=== PATIENT | female | born 1955 | race Caucasian/White ===

== ENCOUNTER → 2018-04-16 10:12 | Outpatient (CLI) | payer MEDICARE, SELFPAY ==
[2018-04-16 12:05] LABS: Absolute Neutrophil Count 3.2 X10^3/uL (2.0-7.7); Basophil# 0.02 X10^3/uL; Basophil% 0.4 % (0-1); Eosinophil# 0.08 X10^3/uL; Eosinophils% 1.4 % (0-5); Hematocrit 42.6 % (37-47); Hemoglobin 14.1 g/dl (12.0-15.0); Lymphocyte % 34.1 % (19-41); Mean Corp Hgb Conc 33.1 g/gl (32-36); Mean Corpuscular Hgb 27.6 pg (27.0-32.0); Mean Corpuscular Volume 83.4 fL (81-99); Mean Platelet Vol. 11.6 fl (6.2-12.0); Monocyte# 0.34 X10^3/uL; Monocyte% 6.1 % (0-10); Neutrophil # 3.21 X10^3/uL (2.7-7.7); Neutrophil % 57.6 % (47-70); Platelet Count 246 K/mm3 (150-450); RBC Distribution Width CV 14.7 % (11.6-14.6); RBC Distribution Width SD 43.8 fl (35.1-43.9); Red Blood Count 5.11 M/mm3 (4.2-5.4); White Blood Count 5.6 K/mm3 (4.4-11.0)
[2018-04-16 12:07] LABS: POSITIVE COUNT NO; POSITIVE DIFFERENTIAL NO; POSITIVE MORPHOLOGY NO
[2018-04-16 12:33] LABS: ALB/GLOB Ratio 1.1 RATIO (0.9-2.4); AST(SGOT) 21 U/L (15-37); Alanine Aminotransfer ALT/SGPT 27 U/L (13-56); Albumin, Serum 3.9 g/dL (3.2-5.0); Alkaline Phosphatase 95 U/L (45-117); Anion Gap 5 (5-15); BUN 8 mg/dL (7-18); BUN/Creat Ratio 7.8 RATIO (10-20); Calcium,Total 9.4 mg/dL (8.5-10.1); Chloride 106 mmol/L (98-107); Creatinine, Serum 1.02 mg/dL (0.55-1.02); EST Glomerular Filtration Rate 58 mL/min (>60); Est Glom Filt Rate - Afr Amer 70 mL/min (>60); Globulin 3.6 g/dL (2.2-4.2); Glucose 104 mg/dL (74-106); Potassium 4.2 mmol/L (3.5-5.1); Protein, Total 7.5 g/dL (6.4-8.2); Sodium Level 138 mmol/L (136-145); T4 Free Direct 0.99 ng/dL (0.76-1.46)
== END ==
PROVIDERS: Family Provider Family Medicine; PCP Family Medicine; Visit Provider Family Medicine
DX: I10 Essential (primary) hypertension (principal); R73.01 Impaired fasting glucose; E78.5 Hyperlipidemia, unspecified
CPT/HCPCS: 36415; 80053; 84439; 84443; 85025

== ENCOUNTER → 2018-05-02 07:49 | Outpatient (CLI) | payer MEDICARE, SELFPAY | PROVIDERS: Family Provider Family Medicine; PCP Family Medicine; Visit Provider Family Medicine | DX: Z12.31 Encounter for screening mammogram for malignant neoplasm of breast (principal) | CPT/HCPCS: 77063; 77067 ==

== ENCOUNTER → 2018-12-24 10:19 | Outpatient (CLI) | payer MEDICARE, SELFPAY ==
[2018-12-24 12:05] LABS: Absolute Lymphocyte Count 1.93 X10^3/ul (0.83-4.51); Basophil# 0.03 X10^3/uL; Basophil% 0.5 % (0-1); Eosinophil# 0.09 X10^3/uL; Eosinophils% 1.6 % (0-5); Hematocrit 40.3 % (37-47); Hemoglobin 12.9 g/dl (12.0-15.0); Lymphocyte # 1.93 X10^3/ul (4.0); Lymphocyte % 35.3 % (19-41); Mean Corpuscular Volume 81.3 fL (81-99); Mean Platelet Vol. 11.5 fl (6.2-12.0); Monocyte# 0.42 X10^3/uL; Monocyte% 7.7 % (0-10); Neutrophil # 2.99 X10^3/uL (2.7-7.7); Neutrophil % 54.7 % (47-70); Platelet Count 214 K/mm3 (150-450); RBC Distribution Width CV 15.2 % (11.6-14.6); RBC Distribution Width SD 45.2 fl (35.1-43.9); Red Blood Count 4.96 M/mm3 (4.2-5.4); White Blood Count 5.5 K/mm3 (4.4-11.0)
[2018-12-24 12:15] LABS: POSITIVE COUNT NO; POSITIVE DIFFERENTIAL NO; POSITIVE MORPHOLOGY NO
[2018-12-24 12:38] LABS: ALB/GLOB Ratio 1.3 RATIO (0.9-2.4); AST(SGOT) 19 U/L (15-37); Alanine Aminotransfer ALT/SGPT 23 U/L (13-56); Albumin, Serum 3.9 g/dL (3.2-5.0); Alkaline Phosphatase 90 U/L (45-117); Anion Gap 5 (5-15); BUN 9 mg/dL (7-18); BUN/Creat Ratio 9.2 RATIO (10-20); Calcium,Total 9.5 mg/dL (8.5-10.1); Chloride 106 mmol/L (98-107); Creatinine, Serum 0.98 mg/dL (0.55-1.02); EST Glomerular Filtration Rate 61 mL/min (>60); Est Glom Filt Rate - Afr Amer 74 mL/min (>60); Glucose 88 mg/dL (74-106); Potassium 4.1 mmol/L (3.5-5.1); Protein, Total 6.9 g/dL (6.4-8.2); Sodium Level 139 mmol/L (136-145); T4 Free Direct 0.94 ng/dL (0.76-1.46); Thyroid Stim Hormone (TSH) 1.52 uIU/mL (0.358-3.74)
== END ==
PROVIDERS: Family Provider Family Medicine; PCP Family Medicine; Visit Provider Family Medicine
DX: I10 Essential (primary) hypertension (principal); R53.83 Other fatigue; R73.01 Impaired fasting glucose
CPT/HCPCS: 36415; 80053; 84439; 84443; 85025

== ENCOUNTER → 2019-05-14 10:10 | Outpatient (CLI) | payer MEDICARE, SELFPAY ==
--- NOTE | 2019-05-14 10:12 | BI_ITS ---
MAMMOGRAPHY - BILATERAL SCREENING 3-D TOMOSYNTHESIS REASON FOR EXAM: Female, 64 years old. Bilateral Screening 3-D tomosynthesis PERTINENT HISTORY: No significant family history. TECHNIQUE: 2-D mammograms and 3-D Tomosynthesis of the breast (s) were performed. CAD was performed. COMPARISON: 05/02/2018, 08/05/2015. FINDINGS: The breast composition is heterogeneously dense that can obscure small breast masses. A focus of increased prominence is visualized on the right side along the retroareolar region, on the MLO view, best visualized on slice 7/13 of the 3 D tomosynthesis image along the MLO projection measuring 1 cm. Further evaluation of this focus with spot compression mammogram and if persistent with sonogram is recommended. Scattered benign calcifications are seen. No other focus of dense spiculated masses or suspicious microcalcifications are identified. No architectural distortion is identified. There is no skin thickening or retraction. There has been no other focus of significant change since the prior study. BI/SCREEN MAMM (CAD) W/MIKE BILAT IMPRESSION: A focus of increased prominence is visualized on the right side along the retroareolar region, on the MLO view, best visualized on slice 7/13 of the 3 D tomosynthesis image along the MLO projection measuring 1 cm. Further evaluation of this focus with spot compression mammogram and if persistent with sonogram is recommended. ASSESSMENT CATEGORY: BIRADS Category 0: Incomplete. Need additional imaging evaluation as above. A letter regarding these results will be sent to the patient by the facility within 30 days. FOLLOW UP RECOMMENDATION: Additional imaging recommended as above. (E) Approximately 10% of breast cancers are not detected by mammography. A normal mammogram should not delay biopsy of a clinically suspicious abnormality. Electronically Signed: Chaim Pennington MD at 16:15 EDT Tel [phone], Service support ,
== END ==
PROVIDERS: Family Provider Family Medicine; PCP Family Medicine; Referring Provider Family Medicine; Visit Provider Family Medicine
DX: Z12.31 Encounter for screening mammogram for malignant neoplasm of breast (principal)
CPT/HCPCS: 77063; 77067

== ENCOUNTER → 2019-05-19 09:24 | Outpatient (CLI) | payer MEDICARE, SELFPAY ==
--- NOTE | 2019-05-19 09:29 | US_ITS ---
STUDY: ULTRASOUND BREAST - RIGHT REASON FOR EXAM: Female, 64 years old. Abnormal screening mammogram. TECHNIQUE: Axial and longitudinal images of the RIGHT breast were performed with a high resolution ultrasound transducer. COMPARISON: Comparison is made with prior mammogram done earlier in the day as well as prior mammogram dated May 14, 2019. FINDINGS: RIGHT Breast: The upper outer quadrant of the right breast was examined by ultrasound. There is homogeneous fibroglandular tissue. No sonographic abnormality is seen. US/Breast Limited Unilateral IMPRESSION: No sonographic abnormality is seen. ASSESSMENT CATEGORY: BIRADS Category 1: Negative. A letter regarding these results will be sent to the patient by the facility within 30 days. Electronically Signed: Dae Love, at 11:00 EDT , Service support ,
--- NOTE | 2019-05-19 09:29 | BI_ITS ---
MAMMOGRAPHY - UNILATERAL DIAGNOSTIC: RIGHT BREAST REASON FOR EXAM: Female, 64 years old. Abnormal screening mammogram. PERTINENT HISTORY: Non-contributory. TECHNIQUE: Compression spot views of the right breast in the mediolateral oblique and craniocaudad projections were obtained. CAD: Full Field Digital Mammography with Computer Added Detection was performed. COMPARISON: Comparison is made with prior mammogram dated May 14, 2019. FINDINGS: Breast Composition: The breasts are heterogeneously dense, which may obscure small masses. There are no dominant masses or suspicious calcifications. The previously questionable asymmetrical density is not seen on this examination. No other significant abnormalities are identified. BI/DIAG MAMM W/CAD, UNILAT IMPRESSION: Stable unilateral diagnostic mammogram. One year follow-up mammogram recommended. (A) ASSESSMENT CATEGORY: BIRADS Category 2: Benign. A letter regarding these results will be sent to the patient by the facility within 30 days. Approximately 10% of breast cancers are not detected by mammography. A normal mammogram should not delay biopsy of a clinically suspicious abnormality. Electronically Signed: Dae Love, at 10:09 EDT , Service support ,
== END ==
PROVIDERS: Family Provider Family Medicine; PCP Family Medicine; Referring Provider Family Medicine; Visit Provider Family Medicine
DX: R92.8 Other abnormal and inconclusive findings on diagnostic imaging of breast (principal)
CPT/HCPCS: 76642; 77065

== ENCOUNTER → 2019-10-20 09:27 | Outpatient (CLI) | payer MEDICARE, SELFPAY ==
[2019-10-20 12:17] LABS: Absolute Lymphocyte Count 2.24 X10^3/uL (0.83-4.51); Basophil# 0.04 X10^3/uL; Basophil% 0.6 % (0-1); Eosinophil# 0.12 X10^3/uL; Eosinophils% 1.7 % (0-5); Hematocrit 39.8 % (37-47); Hemoglobin 12.3 g/dL (12.0-15.0); Lymphocyte # 2.24 X10^3/ul (4.0); Lymphocyte % 32.6 % (19-41); Mean Corp Hgb Conc 30.9 g/dL (32-36); Mean Corpuscular Hgb 25.1 pg (27.0-32.0); Mean Corpuscular Volume 81.2 fL (81-99); Mean Platelet Vol. 12.1 fl (6.2-12.0); Monocyte# 0.41 X10^3/uL; NRBC Flagged by Analyzer 0 % (0-5); Neutrophil # 4.04 X10^3/uL (2.7-7.7); Neutrophil % 58.8 % (47-70); Platelet Count 221 K/mm3 (150-450); RBC Distribution Width CV 15.6 % (11.6-14.6); RBC Distribution Width SD 45.9 fl (35.1-43.9); White Blood Count 6.9 K/mm3 (4.4-11.0)
[2019-10-20 13:17] LABS: Hemoglobin A1c 5.7 % (4.2-6.3)
[2019-10-20 13:20] LABS: Anion Gap 3 (5-15); BUN 12 mg/dL (7-18); Calcium,Total 9.8 mg/dL (8.5-10.1); Chloride 106 mmol/L (98-107); EST Glomerular Filtration Rate 59 mL/min (>60); Est Glom Filt Rate - Afr Amer 72 mL/min (>60); Glucose 94 mg/dL (74-106); Potassium 3.9 mmol/L (3.5-5.1); Sodium Level 138 mmol/L (136-145); Thyroid Stim Hormone (TSH) 1.44 uIU/mL (0.358-3.74)
== END ==
PROVIDERS: PCP Family Medicine; Visit Provider Family Medicine
DX: I10 Essential (primary) hypertension (principal); R73.01 Impaired fasting glucose; F41.8 Other specified anxiety disorders
CPT/HCPCS: 36415; 80048; 83036; 84443; 85025

== ENCOUNTER → 2020-05-20 09:55 | Outpatient (CLI) | payer MEDICARE, SELFPAY ==
--- NOTE | 2020-05-20 09:56 | BI_ITS ---
MAMMOGRAPHY - BILATERAL SCREENING REASON FOR EXAM: Female, 65 years old. Routine annual screening examination. PERTINENT HISTORY: Aunt with breast cancer. TECHNIQUE: Digital bilateral breast mike (3D mammographic acquisition) in the CC and MLO projections. 2-D mediolateral oblique (MLO) and craniocaudad (CC) views of both breasts were obtained. CAD: Full Field Digital Mammography with Computer Added Detection was performed. COMPARISON: Comparison is made with prior examination dated 05/14/2019 and 05/02/2018. FINDINGS: Breast Composition: The breasts are heterogeneously dense, which may obscure small masses. There are no dominant masses or suspicious calcifications. Stable small benign appearing bilateral axillary lymph nodes. No other significant abnormalities are identified. There has been no significant change since the prior study. BI/SCREEN MAMM (CAD) W/MIKE BILAT IMPRESSION: Stable bilateral screening mammogram. Yearly follow-up mammogram recommended. (A) ASSESSMENT CATEGORY: BIRADS Category 2: Benign. A letter regarding these results will be sent to the patient by the facility within 30 days. Approximately 10% of breast cancers are not detected by mammography. A normal mammogram should not delay biopsy of a clinically suspicious abnormality. [id number] Electronically Signed: Dae Love, at 11:31 EDT , Service support ,
== END ==
PROVIDERS: PCP Family Medicine; Referring Provider Family Medicine; Visit Provider Family Medicine
DX: Z12.31 Encounter for screening mammogram for malignant neoplasm of breast (principal); Z80.3 Family history of malignant neoplasm of breast
CPT/HCPCS: 77063; 77067

== ENCOUNTER → 2020-06-08 12:41 | Outpatient (CLI) | payer MEDICARE, SELFPAY ==
--- NOTE | 2020-06-08 12:45 | CT_ITS ---
STUDY: LOW DOSE CT LUNG CANCER SCREENING REASON FOR EXAM: Female, 65 years old. LUNG CA SCREENING. CURRENT SMOKER 1/2 PACK A DAY. 170LBS NO HX OF CA RADIATION DOSAGE (If Supplied By Facility): CTDIvol = ( 3.02 ) mGy, DLP = ( 97.79 ) mGycm TECHNIQUE: No contrast was administered. Low dose technique was utilized (average mAS-38 and kVp 120). 1.25 mm axial source images with a slice interval of 1.25-mm were reconstructed in lung windows. 2.5 mm axial source images with a slice interval of 2.5-mm were reconstructed in lung windows. 5.0 mm axial source images with a slice interval of 5.0-mm were reconstructed in soft tissue windows. Nodule measured using lung windows on PACS and/or independent workstation with automated measurement of minimum and maximum diameter. Nodule measurement reported as average diameter rounded to the nearest whole number. Growth is defined as an increase ins size of greater than 1.5 mm. COMPARISON: None. NODULES: There is a 3.7 mm patchy calcified granuloma in the right lung apex as seen on axial image #41. Emphysema: Mild degree of emphysematous changes. Aorta: Atherosclerotic calcific plaques of the aortic arch and descending thoracic aorta. Coronary arteries: Coronary artery calcification. Heart: Unremarkable. Pulmonary artery: Unremarkable Mediastinal nodes: Small benign-appearing mediastinal lymph nodes. CT/Low Dose CT Lung Screening IMPRESSION: Lung-RADS category 2 - Continue annual screening with LDCT in 12 months. IMPORTANT NOTES FOR USE: ACR Lung-RADS Version 1.0 Assessment Categories Release Date: January 19, 2014 Category: Coded 0-4 bases on nodule(s) with highest degree of suspicion. Negative screen is defined as categories 1 and 2; a positive screen is defined as categories 3 and 4. Category 3 and 4A nodules that are unchanged on interval CT should be coded as category 2, and individuals returned to screening in 12 months. Category 4X: Category 3 or 4 nodules with additional imaging findings that increase the suspicion of lung cancer, such as spiculation, GGN that doubles in size in 1 year, enlarged lymph notes, etc. Category Modifiers: S (significant finding unrelated to lung cancer) and C (prior history of treated lung cancer) may be added to the 0-4 Lung-RADS Electronically Signed: Dae Love, at 13:07 EDT , Service support ,
== END ==
PROVIDERS: PCP Family Medicine; Referring Provider Nurse Practitioner Family; Visit Provider Nurse Practitioner Family
DX: Z12.2 Encounter for screening for malignant neoplasm of respiratory organs (principal); F17.210 Nicotine dependence, cigarettes, uncomplicated
CPT/HCPCS: G0297

== ENCOUNTER → 2020-07-09 10:34 | Outpatient (CLI) | payer MEDICARE, SELFPAY ==
[2020-06-23 08:53] VITALS: BMI 30.9
--- NOTE | 2020-07-09 13:53 | PFTCOMP ---
COMPLETE PULMONARY FUNCTION TEST INTERPRETATION Brief HPI: Patient is a 65 year old female, currently under the care of Dr. Stern, who presents to [facility] for complete pulmonary function tests secondary to diagnosis of COPD. Respiratory therapist reports good effort and reproducible results. Interpretation: Forced expiration spirometry shows a mild large airways obstructive ventilatory defect with an FEV1 of 72% predicted. There is no significant bronchodilator response by strict ATS criteria. Spirograms are of good quality and plateau slowly, indicating slowly emptying areas of the lungs. The respiratory flow volume loop shows decreased expiratory flow rates at all lung volumes consistent with airway obstruction. Lung volumes by body plethysmography show an elevated total lung capacity at 6.23 L, 140% predicted. FRC and RV are elevated out of proportion. Lung volume measurements are consistent with hyperinflation and air-trapping. Diffusion capacity by carbon monoxide is at the lower limit of normal at 65% predicted. The airway resistance is elevated. Compared to previous pulmonary function tests from 07/23/2012, there is been a significant reduction in FVC and FEV1 by 18% and 26% respectively, resulting in significant worsening of air trapping with hyperinflation. Impression: Irreversible mild large airways obstructive ventilatory defect resulting in air trapping and hyperinflation, and a symmetric reduction diffusion capacity, and a pattern consistent with COPD.
== END ==
PROVIDERS: PCP Family Medicine; Referring Provider Internal Medicine Critical Care Medicine; Visit Provider Internal Medicine Critical Care Medicine
DX: J44.9 Chronic obstructive pulmonary disease, unspecified (principal); F17.200 Nicotine dependence, unspecified, uncomplicated
CPT/HCPCS: 94060; 94726; 94729

== ENCOUNTER → 2020-07-13 13:38 | Outpatient (CLI) | payer MEDICARE, SELFPAY ==
[2020-06-23 08:53] VITALS: BMI 30.9
[2020-07-13 13:45] VITALS: PULSE 101; PULSE 103; PULSE 105; PULSE 88; PULSE 97; PULSE 99; O2SAT 93; O2SAT 94; O2SAT 95; O2SAT 98; O2SAT 99
--- NOTE | 2020-07-14 09:15 | PCM.PSN.6M ---
PSN 6 Minute Walk Test - 6 Minute Walk Test 6 Minute Walk Test: 6 Minute Walk Test PSN:6-Minute Walk Test Start: 07/13/20 13:55 Freq: Status: Active Protocol: [id number] Document 07/13/20 13:45 (Rec: 07/13/20 13:59 [id number]) 6 Minute Walk Test Date Performed 07/13/20 Time Performed 13:45 Height 5 ft 2 in Weight: 165 lb Weight in Pounds 165.[address]: Mendoza Stern FIO2 (% Oxygen) 21 Assistive device used: None Pre-test Oxygen Delivery Method Room Air Pulse Ox (%) 99 Pulse Rate (60-100 beats/min) 88 Dyspnea Jonathon Scale (0-10) 0 Exertion Jonathon Scale (6-20) 6 1st minute Oxygen Delivery Method Room Air Pulse Ox (%) 93 Pulse Rate (60-100 beats/min) 101 H 2nd minute Oxygen Delivery Method Room Air Pulse Ox (%) 95 Pulse Rate (60-100 beats/min) 105 H 3rd minute Oxygen Delivery Method Room Air Pulse Ox (%) 94 Pulse Rate (60-100 beats/min) 103 H 4th minute Oxygen Delivery Method Room Air Pulse Ox (%) 98 Pulse Rate (60-100 beats/min) 105 H 5th minute Oxygen Delivery Method Room Air Pulse Ox (%) 98 Pulse Rate (60-100 beats/min) 99 6th minute Oxygen Delivery Method Room Air Pulse Ox (%) 95 Pulse Rate (60-100 beats/min) 103 H Post-test Oxygen Delivery Method Room Air Pulse Ox (%) 99 Pulse Rate (60-100 beats/min) 97 Dyspnea Jonathon Scale (0-10) 3 Exertion Jonathon Scale (6-20) 11 Full Laps Walked 13 Partial Lap, Number of Tiles Walked 32 Total Distance Walked (ft) 799 - Interpretation Interpretation: The patient ambulated 799 feet over the course of 6 minutes beginning on room air without assistive devices or breaks. Pretesting oxygen saturation was noted to be 99% on room air. With ambulation, the josé miguel oxygen saturation was 93%. This represents a significant exertional oxygen desaturation. - Recommendations Recommendations: There is no indication for the use of supplemental oxygen at this time. However, close interval follow-up is recommended, given the degree of oxygen desaturation noted during this study.
== END ==
PROVIDERS: PCP Family Medicine; Referring Provider Internal Medicine Critical Care Medicine; Visit Provider Internal Medicine Critical Care Medicine
DX: J44.9 Chronic obstructive pulmonary disease, unspecified (principal); F17.210 Nicotine dependence, cigarettes, uncomplicated
CPT/HCPCS: 94618

== ENCOUNTER → 2020-10-20 15:11 | Outpatient (CLI) | payer MEDICARE, SELFPAY ==
[2020-09-13 09:46] VITALS: BMI 25.4
[2020-10-20 18:20] LABS: Absolute Lymphocyte Count 2.01 X10^3/uL (0.83-4.51); Absolute Neutrophil Count 4.2 X10^3/uL (2.0-7.7); Basophil# 0.03 X10^3/uL; Basophil% 0.4 % (0-1); Eosinophil# 0.08 X10^3/uL; Eosinophils% 1.2 % (0-5); Hematocrit 36.4 % (37-47); Hemoglobin 10.9 g/dL (12.0-15.0); Lymphocyte # 2.01 X10^3/ul (4.0); Lymphocyte % 29.2 % (19-41); Mean Corp Hgb Conc 29.9 g/dL (32-36); Mean Corpuscular Hgb 22.9 pg (27.0-32.0); Mean Corpuscular Volume 76.6 fL (81-99); Mean Platelet Vol. 11.4 fl (6.2-12.0); Monocyte# 0.52 X10^3/uL; Monocyte% 7.6 % (0-10); NRBC Flagged by Analyzer 0 % (0-5); Neutrophil # 4.22 X10^3/uL (2.7-7.7); Neutrophil % 61.3 % (47-70); Platelet Count 191 K/mm3 (150-450); RBC Distribution Width CV 16.9 % (11.6-14.6); RBC Distribution Width SD 46.9 fl (35.1-43.9); Red Blood Count 4.75 M/mm3 (4.2-5.4); White Blood Count 6.9 K/mm3 (4.4-11.0)
[2020-10-20 18:32] LABS: ALB/GLOB Ratio 1.1 RATIO (0.9-2.4); AST(SGOT) 19 U/L (15-37); Alanine Aminotransfer ALT/SGPT 22 U/L (13-56); Albumin, Serum 3.6 g/dL (3.2-5.0); Alkaline Phosphatase 80 U/L (45-117); Anion Gap 6 (5-15); BUN 15 mg/dL (7-18); BUN/Creat Ratio 14.4 RATIO (10-20); Calcium,Total 9.1 mg/dL (8.5-10.1); Chloride 104 mmol/L (98-107); Creatinine, Serum 1.04 mg/dL (0.55-1.02); EST Glomerular Filtration Rate 56 mL/min (>60); Est Glom Filt Rate - Afr Amer 68 mL/min (>60); Globulin 3.3 g/dL (2.2-4.2); Glucose 79 mg/dL (74-106); Potassium 3.8 mmol/L (3.5-5.1); Protein, Total 6.9 g/dL (6.4-8.2); Sodium Level 138 mmol/L (136-145); T4 Free Direct 0.92 ng/dL (0.76-1.46); Thyroid Stim Hormone (TSH) 2.05 uIU/mL (0.358-3.74)
[2020-10-21 08:54] LABS: Ferritin 6 ng/mL (8-252); Iron 22 ug/dL (50-170)
== END ==
PROVIDERS: PCP Family Medicine; Visit Provider Family Medicine
DX: I10 Essential (primary) hypertension (principal); R73.01 Impaired fasting glucose; K59.09 Other constipation; D64.9 Anemia, unspecified
CPT/HCPCS: 36415; 80053; 82728; 83540; 84439; 84443; 85025

== ENCOUNTER 2020-11-22 06:52 | Day surgery (SDC) | payer MEDICARE, SELFPAY ==
[2020-11-01 14:45] VITALS: BMI 29.6
[2020-11-22] VITALS (8 sets, daily range): BP systolic 128–174; BP diastolic 72–90; PULSE 60–80; RESP 16–17; TEMP 36.1–36.3; O2SAT 97–100; BMI 29.5
--- NOTE | 2020-11-22 | GASB_PTH ---
PATIENT: MATY SHEN LOC: EN U#:[id number] AGE/SX: 65/F ROOM: RE11/22/[address]: Dr. Kylah Aguero MD : 1955 BED: DIS: 11/22/2020 SPEC #: [id number] RECD: 11/22/20 13:00 STATUS: SUSANNAH BEATRICE #: [id number] SUSANNAH: 11/22/20 00:[address]: Kylah Aguero DEPT: SURGICAL PATHOLOGY RECD BY: Arturo Casillas ENTERED: 11/22/20 13:00 SP TYPE: Gastric Bx OTHR DR: Dr. Frederick Poe MD Tissues: A - Gastric mucous membrane B - Gastric mucous membrane C - Ascending colon D - COLON BIOPSY E - COLON BIOPSY Procedures: Special Stain Group II Surgery Specimen Level IV Alcian Blue/PAS (control) HEADER OPERATION: Colonoscopy, [place] [place] PRE-OP DIAGNOSIS: Anemia, constipation TISSUE SUBMITTED: A - Antrum biopsy for H. pylori and path, B - GE junction biopsy, C - Biopsy of ascending colon polyp, D - Hepatic flexure biopsy of polyp incomplete, E - Hepatic flexure biopsy of polyp?#2 MICROSCOPIC DIAGNOSIS A. Antrum, biopsy: Mild gastritis. See microscopic description and comment. B. GE junction, biopsy: Fragments of gastroesophageal mucosa with mild chronic inflammation. Intestinal metaplasia (goblet cell metaplasia) is not identified. See comment. C. Ascending colon polyp, biopsy: Tubular adenoma. D. Hepatic flexure polyp, biopsy: Fragments of tubular adenoma. E. Hepatic flexure polyp #2, biopsy: Fragments of tubular adenoma. SJ:charlette 11/23/2020 COMMENT A. The results of immunohistochemistry for Helicobacter pylori will be reported separately ([id number]). B. Alcian blue/PAS stain with matched control is used in the evaluation of the specimen. MICROSCOPIC DESCRIPTION Slides are reviewed. A. The specimen shows fragments of gastric mucosa with chronic inflammatory cell infiltrates in the lamina propria consisting of lymphocytes and plasma cells, consistent with mild chronic gastritis. GROSS DESCRIPTION A - Received in fixative is one container labeled with the patient's name and designated antrum biopsy. The specimen consists of one irregular fragment of light toney soft tissue that measures 0.3 x 0.2 x 0.1 cm. The specimen is totally submitted in one cassette. B - Received in fixative is one container labeled with the patient's name and designated GE junction biopsy. The specimen consists of two irregular fragments of light toney soft tissue that in aggregate measure 0.3 x 0.2 x 0.1 cm. The specimen is totally submitted in one cassette. C - Received in fixative is one container labeled with the patient's name and designated biopsy of ascending polyp. The specimen consists of multiple irregular fragments of light toney soft tissue that in aggregate measure 0.3 x 0.3 x 0.1 cm. The specimen is totally submitted in one cassette. D - Received in fixative is one container labeled with the patient's name and designated biopsy of hepatic flexure polyp. The specimen consists of two irregular fragments of light toney soft tissue that in aggregate measure 0.4 x 0.2 x 0.1 cm. The specimen is totally submitted in one cassette. E - Received in fixative is one container labeled with the patient's name and designated biopsy of hepatic flexure polyp #2. The specimen consists of three irregular fragments of light toney soft tissue that in aggregate measure 1 x 0.3 x 0.1 cm. The specimen is totally submitted in one cassette. / SJ:rg 11/22/20 TC:5 CPT: 60972 x5, 30899
--- NOTE | 2020-11-22 06:17 | HP_ITS ---
Intake Vital Signs 11/01/20 Height 5 ft 2 in 11/01/20 Weight: 162 lb 11/01/20 BP 146/95 H 11/01/20 Blood Pressure Location Rt brachial 11/01/20 Position Sitting 11/01/20 Respiration 16 11/01/20 Pulse 78 11/01/20 Pulse Source Monitor 11/01/20 Temp 97.7 F L 11/01/20 Temp Source Temporal 11/01/20 Pulse Oximetry (%) 94 11/01/20 Oxygen Delivery Method room air Intake Visit Reasons: ANEMIA, EGD/ CSCOPE Allergies Penicillins Allergy (Intermediate, Verified 11/01/20 14:46) Rash Medications atorvastatin 20 mg tablet 20 mg PO DAILY 06/08/20 [History Confirmed 11/01/20] lactobacillus combination no.8 3 billion cell capsule 3,000 mmu cells PO DAILY 06/08/20 [History Confirmed 11/01/20] lisinopril 20 mg tablet 20 mg PO DAILY 06/08/20 [History Confirmed 11/01/20] multivitamin 1 cap PO DAILY 06/08/20 [History Confirmed 11/01/20] venlafaxine 150 mg capsule,extended release 24 hr 150 mg PO DAILY 06/08/20 [History Confirmed 11/01/20] albuterol sulfate 90 mcg/actuation aerosol inhaler 2 puff INHALATION Q4H PRN #1 device 06/23/20 [Rx Confirmed 11/01/20] cholecalciferol (vitamin D3) 125 mcg (5,000 unit) capsule 125 mcg PO DAILY 06/23/20 [History Confirmed 11/01/20] tiotropium 2.5 mcg-olodaterol 2.5 mcg/actuation mist for inhalation 2 inh INHALATION DAILY #4 g 09/29/20 [Rx Confirmed 11/01/20] citalopram 10 mg tablet 10 mg PO DAILY tab 11/01/20 [History Confirmed 11/01/20] polyethylene glycol 3350 17 gram/dose oral powder 17 g PO DAILY 11/01/20 [History Confirmed 11/01/20] venlafaxine 75 mg capsule,extended release 24 hr 75 mg PO DAILY cap 11/01/20 [History Confirmed 11/01/20] [facility] Medical History (Updated 11/01/20 @ 14:43 by Hailey Cochran) Hemorrhoids (Acute) Abdominal pain (Acute) SOB (shortness of breath) (Acute) Arthritis (Acute) Microcytic anemia (Acute) Chronic constipation (Chronic) GERD (gastroesophageal reflux disease) (Acute) Smoking greater than 30 pack years (Chronic) Emphysema lung (Acute) Bronchitis (Resolved) Asthma (Acute) Hyperlipidemia (Chronic) Hypertension (Chronic) Depression (Chronic) Degenerative joint disease (Acute) Hyperlipidemia (Acute) Hypertension (Chronic) Surgical History (Updated 11/01/20 @ 14:43 by Hailey Cochran) Hx of colonoscopy (Acute) H/O tubal ligation (Resolved) Family History Mother Diabetes Hypertension Father Diabetes COPD (chronic obstructive pulmonary disease) Hypertension Social History (Updated 11/01/20 @ 14:[address] Kylah Aguero MD) Smoking Status: Current every day smoker tobacco type: cigarettes Tobacco: How many years used: 45 substance use type: marijuana HPI HPI HPI: MATY SHEN, is a 65 F who presents to the office today for HPI HPI Surgical H&P: Yes HPI: MATY SHEN, is a 65 F who presents to the office today for EGD and colonoscopy due to anemia. Patient loosely had a hemoglobin of 12.9 in 2019 which then went to 12.3 last year and this year it is 10.9. Patient states she has bowel movements once or twice a week. She admits to severe constipation she is currently on MiraLAX. Patient states last 2 months she has had to strain quite a bit more in order to have a bowel movement. Patient does not think she takes enough fiber or water. Patient denies any blood in her stool. Denies any nausea/vomiting/reflux. Patient does states she gets some abdominal cramping and gas pains maybe once every couple days. Patient denies any family history of colon cancer. Patient last colonoscopy was in 2013 at [facility], negative per patient Exam Const General: cooperative, comfortable, no acute distress Resp Effort & Inspection: normal respiratory effort Cardio Rate: regular rate GI Inspection: non-distended Palpation: soft, no guarding, nontender Neuro General: oriented x3 Cranial Nerves: CN's II-XI intact bilaterally Psych Affect: normal affect Assessment & Plan Problems 1. Anemia D64.9 2. Chronic constipation K59.09 Plan Patient does not think she takes enough fiber or drink enough water. Did encourage patient to drink more water as well as increase her fiber to 20 g daily. Did give patient a sheet going over how to do this slowly. As well as additional supplements that she could try for fiber. I have discussed the above with the patient. I have offered the patient EGD and colonoscopy for evaluation. I have explained the risks/benefits of the procedure and described the procedure. I have discussed the risks with the patient, including but not limited to: infection, bleeding, perforation of the GI tract requiring emergency surgery, inability to complete the procedure, injury to any internal organs, complications of anesthesia, etc. - the patient understands and agrees to proceed. I have answered all the patient's questions to the patient's satisfaction and the patient has no further questions. The patient has been given instructions for the colon cleansing preparation. 2- day of clears, magnesium citrate the first day then MiraLAX Dulcolax the second day. Patient states she only has bowel movements once or twice a week. Kylah Aguero M.D. Pager: [phone] [facility] [address] [place] [address], [address] [place] [address] Office: [phone] Orders Orders: Colonoscopy Today EGD Today Plan Detail Follow Up We will schedule EGD and colonoscopy for November 22. Coding Level of Care Code Off vis,new,level 3 Diagnoses Anemia D64.9 Chronic constipation K59.09 COVID (Procedure Consent) Procedure Criteria Procedure Criteria: Yes Elective The surgeon/proceduralist and patient have discussed in detail the risk of exposure to and/or potential harm posed by the COVID-19 virus with having a surgery/procedure at this time versus the risk of? delaying the surgery/procedure. It is not possible to know either the risk of delaying the surgery or procedure or chance of getting an infection with perfect accuracy, but a joint decision was made between the patient and the surgeon/proceduralist ?to proceed at this time with the scheduled surgery/procedure as indicated on the consent form. I have re-examined the patient. There are no clinical changes since date of exam.
[2020-11-22] MEDS: Lactated Ringers 1,000 ML 100 ML IV (07:29)
--- NOTE | 2020-11-22 08:00 | IMM_PTH ---
PATIENT: MATY SHEN LOC: EN U#:[id number] AGE/SX: 65/F ROOM: RE11/22/[address]: Dr. Kylah Aguero MD : 1955 BED: DIS: 11/22/2020 SPEC #: [id number] RECD: 11/22/20 14:07 STATUS: SUSANNAH REBrennan #: [id number] SUSANNAH: 11/22/20 08:[address]: Kylah Aguero DEPT: IMMUNOHISTOCHEMISTRY RECD BY: Esmer Pride ENTERED: 11/22/20 14:07 SP TYPE: IMMUNO OTHR DR: Dr. Frederick Poe MD Tissues: A - Stomach, NOS Procedures: H Pylori (initial) PHYSICIAN & INSTITUTION [place] [id number] SPECIMEN INFORMATION: Tissue Source: A - Antrum biopsy Clinical Info: Anemia, chronic constipation Specimen Number: [id number] CPT code: 48518 METHODOLOGY: Deparaffinized sections of prefer/formalin-fixed tissue or PAP/DQ stained slides are incubated with monoclonal/polyclonal antibodies/oligonucleotide probes. Localization is made via biotin free immunoperoxidase method. Appropriate controls are performed and reacted as expected. Results on target cell population are indicated in the following table: RESULTS: ANTIBODY / CLONE RESULT Block A H Pylori (polyclonal) negative These tests were developed and their performance characteristics determined by [facility]. They may not have been cleared or approved by the U.S. Food and Drug Administration. The FDA has determined that such clearance or approval is not necessary. INTERPRETATION: A. Antrum, biopsy: Negative for Helicobacter pylori organisms. SJ:charlette 11/23/2020
--- NOTE | 2020-11-22 09:19 | OP.EGD_ITS ---
Patient Name: Samantha High Procedure Date: 11/22/2020 7:23 AM Date of : 1955 Age: 65 Procedure: Upper GI endoscopy Indications: Iron deficiency anemia Providers: Kylah Aguero MD Referring MD: Frederick Poe Medicines: Monitored Anesthesia Care Patient Profile: This is a 65 year old female. Complications: No immediate complications. Procedure: Pre-Anesthesia Assessment: - Prior to the procedure, a History and Physical was performed, and patient medications and allergies were reviewed. The patient's tolerance of previous anesthesia was also reviewed. The risks and benefits of the procedure and the sedation options and risks were discussed with the patient. All questions were answered, and informed consent was obtained. Prior Anticoagulants: The patient has taken no previous anticoagulant or antiplatelet agents. ASA Grade Assessment: Per anesthesia. After reviewing the risks and benefits, the patient was deemed in satisfactory condition to undergo the procedure. After obtaining informed consent, the endoscope was passed under direct vision. Throughout the procedure, the patient's blood pressure, pulse, and oxygen saturations were monitored continuously. The gastroscope was introduced through the mouth, and advanced to the second part of duodenum. The upper GI endoscopy was accomplished without difficulty. The patient tolerated the procedure well. Scope In: 7:58:08 AM Scope Out: 8:06:08 AM Total Procedure Duration Time 0 hours 8 minutes 0 seconds Findings: The Z-line was irregular and was found 40 cm from the incisors. Biopsies were taken with a cold forceps for histology. One non-bleeding superficial gastric ulcer with pigmented material was found in the prepyloric region of the stomach. The lesion was 3 mm in largest dimension. Biopsies were taken with a cold forceps for histology. Biopsies were taken with a cold forceps for Helicobacter pylori cultures. Moderately erythematous mucosa without bleeding was found in the gastric antrum. The examined duodenum was normal. The cardia and gastric fundus were normal on retroflexion. Impression: - Z-line irregular, 40 cm from the incisors. Biopsied. - Non-bleeding gastric ulcer with pigmented material. Biopsied. - Erythematous mucosa in the antrum. - Normal examined duodenum. Recommendation: - Await pathology results. - Discharge patient to home. - Resume previous diet. - Use Protonix (pantoprazole) 40 mg PO daily. - Use sucralfate tablets 1 gram PO QID for 1 month. - Continue present medications. Procedure Code(s): --- Professional --- 89129, Esophagogastroduodenoscopy, flexible, transoral; with biopsy, single or multiple Diagnosis Code(s): --- Professional --- K22.8, Other specified diseases of esophagus K25.9, Gastric ulcer, unspecified as acute or chronic, without hemorrhage or perforation K31.89, Other diseases of stomach and duodenum D50.9, Iron deficiency anemia, unspecified CPT copyright 2017 [employer]. All rights reserved. The codes documented in this report are preliminary and upon call out clerk review may be revised to meet current compliance requirements. MD Kylah Burch MD 11/22/2020 9:18:39 AM This report has been signed electronically. Number of Addenda: 0 Note Initiated On: 11/22/2020 7:23 AM
--- NOTE | 2020-11-22 09:19 | OP.CCLET_ITS ---
11/22/2020 Frederick Poe Re : Upper GI endoscopy procedure for Samantha High Dear Deepika This procedure was performed on Sunday, November 22, 2020. My impressions and recommendations are as follows: Impressions : - Z-line irregular, 40 cm from the incisors. Biopsied. - Non-bleeding gastric ulcer with pigmented material. Biopsied. - Erythematous mucosa in the antrum. - Normal examined duodenum. Recommendations : - Await pathology results. - Discharge patient to home. - Resume previous diet. - Use Protonix (pantoprazole) 40 mg PO daily. - Use sucralfate tablets 1 gram PO QID for 1 month. - Continue present medications. My findings are described in the full procedure note, which is enclosed. If I can be of further assistance, please feel free to contact me at Doctor phone number(s): , Work: . Sincerely, MD Kylah Burch MD 11/22/2020 9:18:39 AM This report has been signed electronically.
--- NOTE | 2020-11-22 09:24 | OP.COLON_ITS ---
Patient Name: Samantha High Procedure Date: 11/22/2020 8:06 AM Date of : 1955 Age: 65 Procedure: Colonoscopy Indications: Iron deficiency anemia Providers: Kylah Aguero MD Referring MD: Frederick Poe Medicines: Monitored Anesthesia Care Patient Profile: This is a 65 year old female. Last Colonoscopy: 2013. Complications: No immediate complications. Procedure: Pre-Anesthesia Assessment: - Prior to the procedure, a History and Physical was performed, and patient medications and allergies were reviewed. The patient's tolerance of previous anesthesia was also reviewed. The risks and benefits of the procedure and the sedation options and risks were discussed with the patient. All questions were answered, and informed consent was obtained. Prior Anticoagulants: The patient has taken no previous anticoagulant or antiplatelet agents. ASA Grade Assessment: Per anesthesia. After reviewing the risks and benefits, the patient was deemed in satisfactory condition to undergo the procedure. After I obtained informed consent, the scope was passed under direct vision. Throughout the procedure, the patient's blood pressure, pulse, and oxygen saturations were monitored continuously. The Colonoscope was introduced through the anus and advanced to the cecum, identified by the appendiceal orifice, ileocecal valve and palpation. The colonoscopy was technically difficult and complex due to a tortuous colon. The patient tolerated the procedure well. The quality of the bowel preparation was good. Scope In: 8:09:03 AM Scope Withdrawal Time 0 hours 52 minutes 48 seconds Scope Out: 9:09:33 AM Total Procedure Duration Time 1 hour 0 minutes 30 seconds Findings: The perianal and digital rectal examinations were normal. Two sessile polyps were found in the hepatic flexure and ascending colon. The polyps were less than 5 mm in size. These polyps were removed with a cold biopsy forceps. Resection and retrieval were complete. A 5 mm polyp was found in the hepatic flexure. The polyp was semi-sessile. Polyp resection was incomplete due to the polypectomy being technically difficult and complex. Biopsies were taken with a cold forceps for histology. Impression: - Two less than 5 mm polyps at the hepatic flexure and in the ascending colon, removed with a cold biopsy forceps. Resected and retrieved. - One 5 mm polyp at the hepatic flexure. Biopsied. Recommendation: - Await pathology results. - Repeat colonoscopy at appointment to be scheduled incomplete polyp resection. - Refer to a torch burner at appointment to be scheduled. - Continue present medications. Procedure Code(s): --- Professional --- 13817, Colonoscopy, flexible; with biopsy, single or multiple Diagnosis Code(s): --- Professional --- D12.3, Benign neoplasm of transverse colon (hepatic flexure or splenic flexure) D12.2, Benign neoplasm of ascending colon D50.9, Iron deficiency anemia, unspecified CPT copyright 2017 [employer]. All rights reserved. The codes documented in this report are preliminary and upon track welder review may be revised to meet current compliance requirements. MD Kylah Burch MD 11/22/2020 9:24:06 AM This report has been signed electronically. Number of Addenda: 0 Note Initiated On: 11/22/2020 8:06 AM
--- NOTE | 2020-11-22 09:24 | OP.CCLET_ITS ---
11/22/2020 Frederick Poe Re : Colonoscopy procedure for Samantha High Dear Deepika This procedure was performed on Sunday, November 22, 2020. My impressions and recommendations are as follows: Impressions : - Two less than 5 mm polyps at the hepatic flexure and in the ascending colon, removed with a cold biopsy forceps. Resected and retrieved. - One 5 mm polyp at the hepatic flexure. Biopsied. Recommendations : - Await pathology results. - Repeat colonoscopy at appointment to be scheduled incomplete polyp resection. - Refer to a plant operations engineer at appointment to be scheduled. - Continue present medications. My findings are described in the full procedure note, which is enclosed. If I can be of further assistance, please feel free to contact me at Doctor phone number(s): , Work: . Sincerely, MD Kylah Burch MD 11/22/2020 9:24:06 AM This report has been signed electronically.
== END 2020-11-22 10:37 | disposition home or self-care (01) ==
LOC: EN 06:53 → AC 06:55
PROVIDERS: PCP Family Medicine; Referring Provider Family Medicine; Visit Provider Surgery
PROC: 0DJD8ZZ Inspection of Lower Intestinal Tract, Via Natural or Artificial Opening Endoscopic (ICD-10-PCS; CPT 45378; principal; 2020-11-22 07:55)
DX: D12.2 Benign neoplasm of ascending colon (principal); D12.3 Benign neoplasm of transverse colon; K25.9 Gastric ulcer, unspecified as acute or chronic, without hemorrhage or perforation; K29.50 Unspecified chronic gastritis without bleeding; D50.9 Iron deficiency anemia, unspecified; K59.09 Other constipation; Z20.822 Contact with and (suspected) exposure to COVID-19; J44.9 Chronic obstructive pulmonary disease, unspecified; I10 Essential (primary) hypertension; E78.5 Hyperlipidemia, unspecified; K21.9 Gastro-esophageal reflux disease without esophagitis; F32.9 Major depressive disorder, single episode, unspecified; F17.210 Nicotine dependence, cigarettes, uncomplicated; Z79.899 Other long term (current) drug therapy; Z78.0 Asymptomatic menopausal state
CPT/HCPCS: 43239; 45380; 87426; 88305; 88313; 88342; C9803; J7120

== ENCOUNTER 2021-03-23 14:49 | Emergency (ER) | payer MEDICARE, SELFPAY ==
[2020-12-22 10:18] VITALS: BMI 30.8
[2021-03-23 14:50] VITALS: BP 118/67; PULSE 79; RESP 14; TEMP 37; O2SAT 98; BMI 29.0
--- NOTE | 2021-03-23 15:08 | ED.VIS.LOWEX ---
HPI History of Present Illness Chief Complaint: Lower Extremity Injury Detail of Chief Complaint: Injury to left lower extremity that occurred an hour ago Informant: patient Narrative Narrative: Patient presents to the emergency department with an injury to the left ankle that occurred about an hour ago. Patient states that she stepped in a hole and fell. Patient was able to bear weight and walk into the house afterwards. Now having a hard time bearing weight secondary to pain. She denies any other injuries. She is not on any blood thinners. [facility] Medical History (Updated 03/23/21 @ 15:[address] Iain Garcia, ) Abdominal pain Arthritis Asthma Bronchitis Chronic constipation Degenerative joint disease Depression Emphysema lung GERD (gastroesophageal reflux disease) Hemorrhoids Hyperlipidemia Hyperlipidemia Hypertension Hypertension Microcytic anemia Smoking greater than 30 pack years SOB (shortness of breath) Home Medications atorvastatin 20 mg tablet 20 mg PO QHS 06/08/20 [History Last Taken Unknown] lisinopril 20 mg tablet 20 mg PO DAILY 06/08/20 [History Last Taken Unknown] venlafaxine 150 mg capsule,extended release 24 hr 150 mg PO DAILY 06/08/20 [History Last Taken Unknown] albuterol sulfate 90 mcg/actuation aerosol inhaler 2 puff INHALATION Q4H PRN #1 device 06/23/20 [Rx Last Taken Unknown] cholecalciferol (vitamin D3) 125 mcg (5,000 unit) capsule 125 mcg PO DAILY 06/23/20 [History Last Taken Unknown] citalopram 10 mg tablet 10 mg PO DAILY tab 11/01/20 [History Last Taken Unknown] polyethylene glycol 3350 17 gram/dose oral powder 17 g PO DAILY 11/01/20 [History Last Taken Unknown] venlafaxine 75 mg capsule,extended release 24 hr 75 mg PO DAILY cap 11/01/20 [History Last Taken Unknown] pantoprazole 40 mg PO DAILY #30 tab 11/22/20 [Rx Last Taken Unknown] sucralfate 1 gm PO 4X/DAY #120 tab 11/22/20 [Rx Last Taken Unknown] oxycodone-acetaminophen 1 tab PO Q6H PRN PRN 3 Days #12 tablet 03/23/21 [Rx Last Taken Unknown] tiotropium-olodaterol [Stiolto Respimat] 2 puff INHALATION DAILY 03/23/21 [History Last Taken Unknown] Allergy/AdvReac Type Severity Reaction Status Date / Time Penicillins Allergy Intermediate Rash Verified 03/23/21 14:50 Family History Mother Diabetes Hypertension Father Diabetes COPD (chronic obstructive pulmonary disease) Hypertension Surgical History H/O tubal ligation Hx of colonoscopy Social History (Updated 12/22/20 @ 10:[address] Mendoza Stern, DO) Smoking Status: Current every day smoker tobacco type: cigarettes Tobacco: How many years used: 45 alcohol intake: current alcohol intake frequency: holidays/special occasions only substance use type: marijuana caffeine: Yes what type of physical activity do you participate in: none frequency: does not exercise ROS ROS ED Constitutional Constitutional ED: Reports systems reviewed and no addt'l complaints, except as documented; Denies body ache(s), change in weight or chills Eyes Eyes: Denies acute decrease in peripheral vision, change in vision, double vision or loss of vision ENT ENT ED: Reports none; Denies ear pain, lip swelling, loss taste/smell, neck pain, otalgia or sore throat Cardiovascular Cardiovascular: Reports none; Denies abdominal pain, chest pain with activity, leg edema, lightheadedness, palpitations, rapid heart rate or syncope Respiratory/Chest Respiratory/Chest: Reports none; Denies change in mental status, dry cough, dyspnea, hemoptysis, shortness of breath at rest or shortness of breath with exertion Gastrointestinal Gastrointestinal: Reports none; Denies abdominal pain, change in stool character, diarrhea, hematemesis, hematochezia, melena, rectal bleeding or vomiting Genitourinary Genitourinary ED: Reports none; Denies abdominal discomfort, anuria, dysuria, genital pain or polyuria Musculoskeletal Musculoskeletal: Reports none and other Details: Left ankle pain ; Denies arthralgias, back pain, difficulty walking, extremity pain, muscle weakness or myalgias Integumentary Reports none; Denies abscess or rash Neurologic Neurologic: Reports none; Denies abnormal gait, confusion, focal weakness, frequent falls, headache(s), loss of vision, numbness, paresthesias, radicular pain, vertigo or weakness Psychiatric Psychiatric: Reports systems reviewed and no addt'l complaints, except as documented and none; Denies behavioral changes, confusion, difficulty concentrating, hallucinations, suicidal ideation, tactile hallucinations or visual hallucinations Endocrine Endocrinology: Denies none, cold intolerance, excessive sweating, fatigue or heat intolerance Hematologic/Lymphatic Hematologic/Lymphatic: Reports none; Denies anemia, easy bleeding or easy bruising Allergic/Immunologic Allergic/Immunologic ED: Denies as per HPI, none, lip swelling, mouth swelling, throat swelling, tongue swelling or hives EXAM Physical Exam Const Vital Signs: 03/23/21 14:50 Temperature 98.6 F Temperature Source Temporal Pulse Rate 79 Respiratory Rate 14 Blood Pressure 118/67 Blood Pressure Mean 84 Pulse Ox 98 Oxygen Delivery Method Room Air Positive well nourished and well developed General Appearance ED: well developed and NAD HEENT Reports TM's clear and moist mucous membranes normocephalic and atraumatic; Negative for trauma or tenderness Tympanic Membrane ED: Yes TM's clear Eyes PERRL and EOMs intact bilaterally General Eye ED: Negative for pale conjunctiva or scleral icterus Neck no lymphadenopathy, supple and no JVD General: Negative for tenderness Chest Wall inspection of chest normal and palpation of chest normal Chest: Negative for tenderness Resp normal respiratory effort and clear to auscultation bilaterally Effort and Inspection: Negative for respiratory distress or pain with movement Auscultation: Negative for rhonchi, wheezes or diminished lung sounds Cardio regular rate, regular rhythm, S1 normal heart sound, S2 normal heart sound and no murmurs Peripheral Pulses: pulses 2+ throughout GI normal to inspection, nondistended, normoactive bowel sounds, soft to palpation, non-tender, non-distended and no masses Back/Spine no CVA tenderness and no thoracic nor lumbar tenderness Extremity Extremity Narrative: Evaluation of the left ankle reveals diffuse soft tissue swelling over the lateral malleolus with tenderness palpation. Patient has some tenderness over the proximal fibular head as well. Mild tenderness over the base of the fifth metatarsal. Neurovascular intact distally. General Extremety ED: Yes edema General Extremity: edema Neuro oriented x3, CN's II-XII intact bilaterally, no sensory deficits noted and gait normal Sensorium / Orientation: awake, alert, oriented to person, oriented to place and oriented to time Motor Exam: strength 5/5 throughout and strength abnormal Psych mental status grossly normal Skin no rashes or lesions noted and no wounds MDM MDM MDM Narrative Medical decision making narrative: Patient has a fracture of the proximal fifth metatarsal of the left foot and patient also has sprain of left ankle. She will be placed in an air splint and postop shoe and given crutches. She is advised not to bear weight till she follows up with podiatry. Patient given a prescription for Percocet for pain. She is to ice and elevate the extremity. Radiography Diagnostic Testing: Radiology Impression Ankle X-Ray 03/23/21 15:17 IMPRESSION: No fracture or dislocation. Lateral soft tissue swelling consistent with ligamentous injury. Electronically Signed: Demetris Barnett MD at 15:37 EDT Tel , Service support , Tibia/Fibula X-Ray 03/23/21 15:17 IMPRESSION: Normal x-ray examination of the tibia and fibula. Electronically Signed: Demetris Barnett MD at 15:41 EDT Tel , Service support , Foot X-Ray 03/23/21 15:42 IMPRESSION: Acute pseudo-Graham fracture. Electronically Signed: Demetris Barnett MD at 15:49 EDT Tel , Service support , X-rays of the left tib-fib 2 views obtained interpreted by myself as no acute fractures or dislocations. Patient also had x-rays of the left ankle 3 views obtained interpreted by myself as no acute fractures or dislocations of the tibia or fibula however it was noted that she had a fracture at the base of the fifth metatarsal. Radiology agreed that there were no ankle fractures. X-rays of the left foot obtained 3 views interpreted by myself as fracture of the fifth metatarsal base and radiology agree that there was a pseudo-Graham type fracture. Discharge Plan Triage Chief Complaint: Lower Extremity Injury ED Provider: Iain Garcia Dx/Rx/DC Orders Clinical Impression: Foot fracture, Ankle sprain Instructions: ED Fracture, Foot, ED Ankle Sprain (Adult) Prescriptions: New oxycodone-acetaminophen [oxycodone-acetaminophen] 1 TABLET tablet 1 tab PO Q6H PRN PRN (Reason: Pain) 3 Days Qty: 12 RF: 0 No Action lisinopril 20 mg tablet 20 mg PO DAILY RF: 0 atorvastatin [Lipitor] 20 mg tablet 20 mg PO QHS RF: 0 venlafaxine [Effexor XR] 150 mg capsule,extended release 24hr 150 mg PO DAILY RF: 0 cholecalciferol (vitamin D3) 125 mcg (5,000 unit) capsule 125 mcg PO DAILY RF: 0 albuterol sulfate 90 mcg/actuation HFA aerosol inhaler 2 puff INHALATION Q4H PRN (Reason: shortness of breath or wheezing) Qty: 1 RF: 6 venlafaxine 75 mg capsule,extended release 24hr 75 mg PO DAILY RF: 0 citalopram 10 mg tablet 10 mg PO DAILY RF: 0 polyethylene glycol 3350 [Miralax] 17 gram/dose powder 17 g PO DAILY RF: 0 pantoprazole 40 MG tablet 40 mg PO DAILY Qty: 30 RF: 3 sucralfate 1 GM tablet 1 gm PO 4X/DAY Qty: 120 RF: 0 Stiolto Respimat 2.5-2.5 mcg/actuation mist 2 puff INHALATION DAILY RF: 0 Primary Care Provider: Frederick Poe Referrals: Rodger Francois DPM [STAFF PHYSICIAN] - 3-5 Days Frederick Poe MD [Primary Care Provider] - Disposition Disposition: Home, Self Care
--- NOTE | 2021-03-23 15:17 | RAD_ITS ---
STUDY: X-RAY - LEFT TIBIA AND FIBULA REASON FOR EXAM: Female, 65 years old. injury TECHNIQUE: 2 view(s) of the tibia and fibula were obtained. COMPARISON: None. FINDINGS: Normal visualized tibia. Normal visualized fibula. The soft tissue structures are unremarkable. RAD/Tibia & Fibula 2 Views IMPRESSION: Normal x-ray examination of the tibia and fibula. Electronically Signed: Demetris Barnett MD at 15:41 EDT Tel , Service support ,
--- NOTE | 2021-03-23 15:17 | RAD_ITS ---
STUDY: X-RAY - LEFT ANKLE REASON FOR EXAM: Female, 65 years old. injury TECHNIQUE: 3 view(s) of the ankle. COMPARISON: None. FINDINGS: Normal visualized distal tibia and fibula. Normal medial and lateral malleoli. Normal tibiotalar articulation and ankle mortise. Normal visualized talus and calcaneus. Small plantar calcaneal enthesophyte. The visualized subtalar, talonavicular, calcaneocuboid and tarsal articulations are normal. Lateral soft tissue swelling consistent with ligamentous injury. RAD/Ankle min 3 Views IMPRESSION: No fracture or dislocation. Lateral soft tissue swelling consistent with ligamentous injury. Electronically Signed: Demetris Barnett MD at 15:37 EDT Tel , Service support ,
[2021-03-23] MEDS: oxyCODONE 5 MG Tablet PO (15:23)
--- NOTE | 2021-03-23 15:42 | RAD_ITS ---
STUDY: X-RAY - LEFT FOOT CLINICAL: Female, 65 years old. injury TECHNIQUE: 3 view(s) of the foot. COMPARISON: None. FINDINGS: Normal talus, calcaneus, and tarsal bones. Small plantar calcaneal enthesophyte. Normal visualized subtalar, talonavicular, calcaneocuboid, tarsal and tarsometatarsal articulations. Acute nondisplaced oblique fracture the base of the fifth metatarsal bone (pseudo-Graham fracture) per Normal metatarsophalangeal joint of the great toe. Normal tibial and fibular sesamoid bones. Normal interphalangeal joint of the great toe. Normal phalanges of the great toe. Normal second through fifth metatarsophalangeal joints. Normal interphalangeal joints and phalanges of the lesser toes. The soft tissue structures are unremarkable. RAD/Foot min 3 Views IMPRESSION: Acute pseudo-Graham fracture. Electronically Signed: Demetris Barnett MD at 15:49 EDT Tel , Service support ,
== END 2021-03-23 16:16 | disposition home or self-care (01) ==
PROVIDERS: Emergency Provider Emergency Medicine; PCP Family Medicine
DX: S92.352A Displaced fracture of fifth metatarsal bone, left foot, initial encounter for closed fracture (principal); S93.402A Sprain of unspecified ligament of left ankle, initial encounter; W17.2XXA Fall into hole, initial encounter; Y93.9 Activity, unspecified; Y92.9 Unspecified place or not applicable; Y99.9 Unspecified external cause status; J43.9 Emphysema, unspecified; I10 Essential (primary) hypertension; E78.5 Hyperlipidemia, unspecified; M19.90 Unspecified osteoarthritis, unspecified site; J45.909 Unspecified asthma, uncomplicated; K21.9 Gastro-esophageal reflux disease without esophagitis; F32.9 Major depressive disorder, single episode, unspecified; F17.210 Nicotine dependence, cigarettes, uncomplicated; Z79.899 Other long term (current) drug therapy
CPT/HCPCS: 73590; 73610; 73630; 99285

== ENCOUNTER → 2021-05-05 09:47 | Outpatient (CLI) | payer MEDICARE, SELFPAY ==
--- NOTE | 2021-05-05 09:54 | BD_ITS ---
STUDY: DUAL ENERGY X-RAY ABSORPTIOMETRY / DXA REASON FOR EXAM: Female, 66 years old. 627.8Menopausal postmenopausal BONE DENSITY REASON FOR EXAM TECHNIQUE: Bone Mineral Density (BMD) measurements of lumbar spine and bilateral hips were obtained. COMPARISON: None. FINDINGS: Lumbar Spine (L1-L4): g/cm2 (0.974) / T-score (-0.6) / Z-score (1.3) Findings are suggestive of normal bone density with a low fracture risk. Left Femur Total: g/cm2 (0.752) / T-score (-1.6) / Z-score (-0.3) Left Femoral Neck: g/cm2 (0.669) / T-score (-1.6) / Z-score (-0.1) Right Femur Total: g/cm2 (0.778) / T-score (-1.3) / Z-score (-0.1) Right Femoral Neck: g/cm2 (0.654) / T-score (-1.8) / Z-score (-0.2) BD/Dexa Bone Density Study IMPRESSION: The patient is considered osteopenic as outlined below according to World Sean Organization (WHO) criteria with a moderate fracture risk. Reference Information: The T-score is the number of standard deviations above or below the standard which is normal for young adults at their peak bone mineral density. The World Health Organization (WHO) interprets the T-scores as follows: Above -1 Normal bone density Between -1 and -2.5 Osteopenia Equal to / or below -2.5 Osteoporosis As a practical clinical guideline, osteopenia may be graded as follows: Mild -1 through -1.5 Moderate -1.6 through -2.0 Severe -2.1 through -2.4 The Z-score is the number of standard deviations above or below age-matched controls. A Z-score of less than -1.5 would be considered abnormal. References: 1. NIH Osteoporosis and Related Bone Diseases www osteo.org 2. International Society for Clinical Densitometry www iscd.org 3. National Osteoporosis Foundation www nof.org Electronically Signed: Dae Love MD at 12:34 EDT , Service support ,
== END ==
PROVIDERS: PCP Family Medicine; Referring Provider Family Medicine; Visit Provider Family Medicine
DX: Z78.0 Asymptomatic menopausal state (principal); M85.80 Other specified disorders of bone density and structure, unspecified site
CPT/HCPCS: 77080

== ENCOUNTER → 2021-05-24 11:05 | Outpatient (CLI) | payer MEDICARE, SELFPAY ==
--- NOTE | 2021-05-24 11:10 | BI_ITS ---
MAMMOGRAPHY - BILATERAL SCREENING 3-D TOMOSYNTHESIS REASON FOR EXAM: Female, 66 years old. SCREENING PERTINENT HISTORY: No significant family history. TECHNIQUE: 2-D mammograms and 3-D Tomosynthesis of the breast (s) were performed. CAD was performed. COMPARISON: 05/20/2020 FINDINGS: The breast composition is heterogeneously dense that can obscure small breast masses. Scattered benign calcifications are seen. 1 cm oval obscured mass in the lower outer quadrant right breast and focal compression views recommended for further evaluation. No dominant mass left breast. No suspicious calcifications.. No architectural distortion is identified. There is no skin thickening or retraction. BI/SCRN MAMM (CAD)W/MIKE BILAT IMPRESSION: 1 cm oval obscured mass in the lower outer quadrant right breast at mid depth and focal compression views are recommended for further evaluation. ASSESSMENT CATEGORY: BIRADS Category 0: Incomplete. Need additional imaging evaluation as above. A letter regarding these results will be sent to the patient by the facility within 30 days. FOLLOW UP RECOMMENDATION: Additional imaging recommended as above. (E) Approximately 10% of breast cancers are not detected by mammography. A normal mammogram should not delay biopsy of a clinically suspicious abnormality. Electronically Signed: Demetris Barnett MD at 17:09 EDT Tel , Service support ,
== END ==
PROVIDERS: PCP Family Medicine; Referring Provider Family Medicine; Visit Provider Family Medicine
DX: Z12.31 Encounter for screening mammogram for malignant neoplasm of breast (principal)
CPT/HCPCS: 77063; 77067

== ENCOUNTER → 2021-05-26 08:52 | Outpatient (CLI) | payer MEDICARE, SELFPAY ==
--- NOTE | 2021-05-26 08:55 | BI_ITS ---
MAMMOGRAPHY - UNILATERAL DIAGNOSTIC: RIGHT BREAST REASON FOR EXAM: Female, 66 years old. RT ABN MAMM PERTINENT HISTORY: Non-contributory. TECHNIQUE: Digital examination. Mediolateral oblique (MLO) and craniocaudad (CC) views of the breast were obtained. CAD: CAD was not performed on this study. COMPARISON: 05/24/2021 FINDINGS: Breast Composition: The breasts are heterogeneously dense, which may obscure small masses. Focal compression views confirm a 1 cm oval obscured equal density mass in the lower outer quadrant of the right breast and ultrasound is recommended for further evaluation. No other significant abnormalities are identified. BI/DIAG MAMM W/CAD, UNILAT IMPRESSION: Further ultrasonographic evaluation recommended, as described above. ASSESSMENT CATEGORY: BIRADS Category 0: Incomplete. Need additional imaging evaluation. A letter regarding these results will be sent to the patient by the facility within 30 days. FOLLOW-UP RECOMMENDATION: Ultrasound recommended. (I) Approximately 10% of breast cancers are not detected by mammography. A normal mammogram should not delay biopsy of a clinically suspicious abnormality. Electronically Signed: Demetris Barnett MD at 9:30 EDT Tel , Service support ,
--- NOTE | 2021-05-26 08:55 | US_ITS ---
STUDY: ULTRASOUND BREAST - RIGHT REASON FOR EXAM: Female, 66 years old. Abnormal mammogram TECHNIQUE: Axial and longitudinal images of the RIGHT breast were performed with a high resolution ultrasound transducer. # OF IMAGES: 62 COMPARISON: Mammogram from earlier today FINDINGS: RIGHT Breast: Ultrasound evaluation of the right breast, in the area of concern, shows a poorly defined 0.5 x 0.9 x 0.9 cm nodule. It is at 8 o''clock, 4 cm from the nipple. Margins are jagged, there is both posterior shadowing and internal blood flow. Biopsy is recommended for further evaluation. US/Breast Limited Unilateral IMPRESSION: Suspicious 0.5 x 0.9 x 0.9 cm nodule at 8 o''clock, 4 cm of the nipple. Biopsy recommended for further evaluation ASSESSMENT CATEGORY: BIRADS Category 4: Suspicious - Biopsy Should Be Considered. A letter regarding these results will be sent to the patient by the facility within 30 days. Electronically Signed: Zia Isabel MD at 13:15 EDT , Service support ,
== END ==
PROVIDERS: PCP Family Medicine; Referring Provider Family Medicine; Visit Provider Family Medicine
DX: N63.10 Unspecified lump in the right breast, unspecified quadrant (principal)
CPT/HCPCS: 76642; 77065

== ENCOUNTER → 2021-05-31 | Outpatient (CLI) | payer MEDICARE, SELFPAY ==
--- NOTE | 2021-05-31 | IMM_PTH ---
PATIENT: MATY SHEN LOC: [facility] U#:[id number] AGE/SX: 66/F ROOM: RE05/31/[address]: Dr. Kylah Aguero MD : 1955 BED: DIS: 05/31/2021 SPEC #: [id number] RECD: 06/01/21 11:35 STATUS: SUSANNAH REBrennan #: [id number] SUSANNAH: 05/31/21 00:[address]: Kylah Aguero DEPT: IMMUNOHISTOCHEMISTRY RECD BY: Brian Mills Tissues: Right breast, NOS Procedures: CALPONIN-1 (add) CK5-6 (add) CK8 (add) ALONZO-2 (add) E-CAD (add) HER2 NABIL (add) KI-67 (add) P53 (add) TN (add) P40 (add) ER (initial) PHYSICIAN & INSTITUTION [place] [phone] SPECIMEN INFORMATION: Tissue Source: Right breast tissue Clinical Info: Right breast mass Specimen Number: [id number] CPT code: 30008, 69030 x7, 30725 x3 METHODOLOGY: Deparaffinized sections of prefer/formalin-fixed tissue or PAP/DQ stained slides are incubated with monoclonal/polyclonal antibodies/oligonucleotide probes. Localization is made via biotin free immunoperoxidase method. Appropriate controls are performed and reacted as expected. Results on target cell population are indicated in the following table: RESULTS: ANTIBODY / CLONE RESULT P53 (DO-7) negative Ki-67 (30-9) positive CK8 (48icmtJ61) positive CK5-6 (D5 & 1684) negative Calponin-1 (ZW322Y) negative P40 (BC28) negative E-Cad (ECH-6) positive ALONZO-2 (SP21) positive MORPHOMETRIC ANALYSIS ER (clone 6F11) positive, 95% strong intensity TN (clone 16/1E2) positive, 65% moderate intensity Her-2Neu (clone CB11) negative 0 The prognostic test for HER2 is performed on formalin-fixed paraffin embedded tissue. A 3+ (positive) staining pattern is defined as intense, homogeneous, complete, circumferential membranous staining in >10% of contiguous tumor cells. A similar weak (2+) staining pattern is interpreted as equivocal. CRISTIN follow-up testing is recommended for all equivocal cases. Positivity/negativity for ER/TN is reported if > or < 1% of the tumor cells are immuno- reactive, respectively. The ASCO/CAP criteria is used for scoring. Reference: Journal of Clinical Oncology, 2013; 31:1616-3009 & 2010; 16:5456-4721. Duration of fixation: 24 Hrs; Sample Adequate: Yes. These assays have not been validated on decalcified tissues. Results should be interpreted with caution given the likelihood of false negativity on decalcified specimens. These tests were developed and their performance characteristics determined by [facility]. They may not have been cleared or approved by the U.S. Food and Drug Administration. The FDA has determined that such clearance or approval is not necessary. The above immunohistochemical/dualISH markers are ordered and reviewed by the Pathologist. INTERPRETATION: Right breast , core biopsy: Invasive ductal carcinoma, nuclear grade 1/3 AM:jet 06/02/21
--- NOTE | 2021-05-31 10:50 | BRBX_PTH ---
PATIENT: MATY SHEN LOC: [facility] U#:[id number] AGE/SX: 66/F ROOM: RE05/31/[address]: Dr. Kylah Aguero MD : 1955 BED: DIS: 05/31/2021 SPEC #: [id number] RECD: 05/31/21 11:21 STATUS: SUSANNAH BEATRICE #: [id number] SUSANNAH: 05/31/21 10:[address]: Klyah Aguero DEPT: SURGICAL PATHOLOGY RECD BY: Valentina Campbell Tissues: Right breast, NOS Procedures: Surgery Specimen Level IV HEADER OPERATION: Right breast biopsy PRE-OP DIAGNOSIS: Right breast mass, 8:00 4FTN TISSUE SUBMITTED: Right breast tissue MICROSCOPIC DIAGNOSIS Right breast, core biopsy: Invasive ductal carcinoma with the following characteristics: Nuclear grade ? 1/3 Maximal length ? 10mm. AM;am 06/02/21 COMMENT Immunohistochemistry for hormonal markers ([id number] ) will be reported separately. MICROSCOPIC DESCRIPTION Slides are reviewed. GROSS DESCRIPTION Received in fixative is one container labeled with the patient name and designated right breast. The specimen consists of two elongated cores of soft toney tissue measuring 1.5 x 0.2cm each . The specimen is totally submitted in one cassette /AM:am 05/31/21 TC:0 CPT:68934
== END | disposition home or self-care (01) ==
LOC: LABSPEC 06-01 07:22
PROVIDERS: Referring Provider Surgery; Visit Provider Surgery
DX: N63.10 Unspecified lump in the right breast, unspecified quadrant (principal)
CPT/HCPCS: 88305; 88341; 88342

== ENCOUNTER → 2021-06-29 14:25 | Outpatient (CLI) | payer MEDICARE, SELFPAY ==
--- NOTE | 2021-06-29 14:27 | CT_ITS ---
STUDY: LOW DOSE CT LUNG CANCER SCREENING REASON FOR EXAM: Female, 66 years old. Smoker and gt; 20 pack years RADIATION DOSAGE (If Supplied By Facility): CTDIvol = ( 2.39 ) mGy, DLP = ( 74.15 ) mGycm TECHNIQUE: No contrast was administered. Low dose technique was utilized (average mAS-38 and kVp 120). 1.25 mm axial source images with a slice interval of 1.25-mm were reconstructed in lung windows. 2.5 mm axial source images with a slice interval of 2.5-mm were reconstructed in lung windows. 5.0 mm axial source images with a slice interval of 5.0-mm were reconstructed in soft tissue windows. Nodule measured using lung windows on PACS and/or independent workstation with automated measurement of minimum and maximum diameter. Nodule measurement reported as average diameter rounded to the nearest whole number. Growth is defined as an increase ins size of greater than 1.5 mm. COMPARISON: 06/08/2020 FINDINGS: Lung windows show mild hyperexpansion of the lungs with chronic interstitial changes. No suspicious noncalcified mass or nodule. No organized infiltrate or effusion. Evidence of peribronchial thickening suggesting chronic bronchitis. No groundglass opacifications. No suspicious adenopathy. Peripheral calcifications noted in the thoracic aorta without aneurysm. There are calcified coronary vessels. No pleural or pericardial effusions. Bony structures show degenerative changes. No significant interval change since the previous study. CT/Low Dose CT Lung Screening IMPRESSION: Lung-RADS category 2 - Continue annual screening with LDCT in 12 months. IMPORTANT NOTES FOR USE: ACR Lung-RADS Version 1.1 Assessment Categories Release Date: 2018 Category: Coded 0-4 bases on nodule(s) with highest degree of suspicion. Negative screen is defined as categories 1 and 2; a positive screen is defined as categories 3 and 4. Category 3 and 4A nodules that are unchanged on interval CT should be coded as category 2, and individuals returned to screening in 12 months. Category 4X: Category 3 or 4 nodules with additional imaging findings that increase the suspicion of lung cancer, such as spiculation, GGN that doubles in size in 1 year, enlarged lymph notes, etc. Category Modifiers: S (significant finding unrelated to lung cancer) Electronically Signed: Zia Isabel MD at 17:37 EDT , Service support ,
== END ==
PROVIDERS: PCP Family Medicine; Visit Provider Nurse Practitioner Acute Care
DX: F17.210 Nicotine dependence, cigarettes, uncomplicated (principal)
CPT/HCPCS: 71271

== ENCOUNTER 2021-07-04 14:47 | Observation (INO) | payer MEDICARE, SELFPAY ==
[2021-07-04] VITALS (12 sets, daily range): BP systolic 111–149; BP diastolic 52–90; PULSE 68–78; RESP 14–18; TEMP 35.8–37.2; O2SAT 2–97; BMI 29.0
--- NOTE | 2021-07-04 | BRBX_PTH ---
PATIENT: MATY SHEN LOC: [facility] U#:[id number] AGE/SX: 66/F ROOM: [facility] RE07/04/[address]: Dr. Kylah Aguero MD : 1955 BED: 1 DIS: 07/05/2021 SPEC #: [id number] RECD: 07/04/21 14:41 STATUS: SUSANNAH REBrennan #: [id number] SUSANNAH: 07/04/21 00:[address]: Kylah Aguero DEPT: SURGICAL PATHOLOGY RECD BY: Esmer Pride ENTERED: 07/04/21 15:54 SP TYPE: BREAST BX OTHR DR: Dr. Frederick Poe MD Tissues: A - Right breast, NOS B - Axillary lymph node, NOS Procedures: Surgery Specimen Level V HEADER OPERATION: Ultrasound-guided wire localization, right lumpectomy PRE-OP DIAGNOSIS: Invasive ductal carcinoma of right breast TISSUE SUBMITTED: A - Right breast mass, long stitch - lateral, short stitch - superior, B - Right axillary lymph node dissection MICROSCOPIC DIAGNOSIS A. Right breast mass, lumpectomy with wire localization: Invasive ductal carcinoma. See cancer summary in the comment section. B. Right axillary lymph node dissection: Twelve out of twelve lymph nodes, negative for metastatic carcinoma. SJ:rg 07/07/2021 COMMENT BREAST CANCER SUMMARY Procedure ? lumpectomy with needle localization Specimen laterality ? Invasive tumor: Tumor site ? 8 o?clock, 4 cm from the nipple Tumor size ? 1.2 x 1.1 x 1 cm Histologic type ? invasive ductal carcinoma (not otherwise specified) Histologic grade ([place] grade): Glandular/tubular differentiation score - 2 Nuclear pleomorphism score - 2 Mitotic count score - 1 Overall grade ? grade 1 (score of 5) Tumor focality ? single focus of invasive carcinoma Ductal carcinoma in situ ? not identified Lobular carcinoma in situ - not identified Tumor extension: Skin ? not present Nipple ? not applicable Skeletal muscle ? no skeletal muscle is present. Margins: Invasive carcinoma margin ? the tumor is 0.4 cm away from the closest posterior margin. Regional lymph nodes: Total number of lymph nodes examined ? 12 Number of sentinel lymph nodes examined - 0 Number of lymph nodes with macrometastases, micrometastases or isolated tumor cells - 0 Treatment effect ? no known presurgical therapy. Lymphvascular invasion ? not identified Dermal lymphvascular invasion ? not applicable Additional Pathologic Findings ? intraductal hyperplasia without atypia. Ancillary Studies: Previously performed on same tumor ([id number] / [id number]) ER: positive (>95%, strong intensity) TX: positive (65%, moderate intensity) Nka2cdi: negative (0) Microcalcifications ? not identified Clinical History - Please make reference to previous specimen ([id number]) right breast, core biopsy with diagnosis of invasive ductal carcinoma. PATHOLOGIC STAGE: pT1c pN0 pMx The above summary is in compliance with [employer] [place] [employer] (CAP) Cancer Protocols Checklist and [place] Joint Committee on Cancer (AJCC), Staging Manual, 8th Ed. MICROSCOPIC DESCRIPTION Slides are reviewed. GROSS DESCRIPTION A - Received fresh for intraoperative consultation labeled with the patient's name is a specimen designated right breast mass. The specimen consists of a piece of fibroadipose tissue with needle localization measuring 5 x 4 x 2 cm. The specimen is inked as follows: anterior - yellow, posterior - black, superior - blue, inferior - green, medial - red and lateral - orange. Serial sections reveal a toney, indurated tumor mass measuring 1.2 x 1.1 x 1 cm. This mass is 0.3 cm away from the closest posterior margin. This information is conveyed to the surgeon intraoperatively. Sections of the rest of the specimen reveal toney-yellow adipose cut surfaces mixed with scant fibrous areas. Licensed Investment Sales Assistant sections?are submitted in nine cassettes as follows: 1 - perpendicular medial and lateral margins, 2??perpendicular anterior, superior and inferior margins, 3-6 - entire tumor, 7-9 - Licensed Investment Sales Assistant sections adjacent to and away from the tumor. Sections will be submitted after additional fixation. / NORA:charlette 07/05/21 B - Received in fixative is one container labeled with the patient's name and designated axillary node dissection, right. The specimen consists of two pieces of yellow adipose tissue measuring in aggregate 8 x 4.5 x 2 cm. Multiple nodules consistent with lymph nodes are identified. The largest lymph node measures 1.5 cm in greatest dimension. The lymph nodes are submitted in entirety as follows: 1 - serial section one lymph node, 2 - multiple lymph nodes, 3 - multiple lymph nodes, 4 - one bisected lymph node, 5 - one bisected lymph node (largest lymph node). NORA:charlette 07/05/21 TC:0 CPT: 86639 x2, 66169
--- NOTE | 2021-07-04 09:00 | NM_ITS ---
PROCEDURE: NUCLEAR MEDICINE Injection Boyce Node - RIGHT breast(s). REASON FOR EXAM: Female, 66 years old. Right breast cancer. TECHNIQUE: Boyce node localization using radionuclide methods of the RIGHT breast(s) was performed following subcutaneous administration of 1.1 mCi of of sulfur colloid Tc-99m. FINDINGS: 1.1 mCi of technetium labeled sulfur colloid was injected subcutaneously in the lateral right periareolar region. NM/Lymph Node Injection Only IMPRESSION: 1.1 mCi of Tc labeled sulfur colloid was injected subcutaneously in the lateral right periareolar region. Electronically Signed: Dae Love MD at 10:07 EDT , Service support ,
[2021-07-04] MEDS: Lactated Ringers 1,000 ML 100 ML IV ×2 (09:10→12:15)
--- NOTE | 2021-07-04 09:55 | HP.PCM_ITS ---
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 Required: No Is patient in pain?: No Allergies latex Allergy (Intermediate, Verified 06/08/21 14:49) rash Penicillins Allergy (Intermediate, Verified 06/08/21 14:49) Rash Medications atorvastatin 20 mg tablet 20 mg PO QHS 06/08/20 [History Confirmed 06/08/21] venlafaxine 150 mg capsule,extended release 24 hr 150 mg PO DAILY 06/08/20 [History Confirmed 06/08/21] albuterol sulfate 90 mcg/actuation aerosol inhaler 2 puff INHALATION Q4H PRN #1 device 06/23/20 [Rx Confirmed 06/08/21] cholecalciferol (vitamin D3) 125 mcg (5,000 unit) capsule 125 mcg PO DAILY 0 06/23/20 [History Confirmed 06/08/21] citalopram 10 mg tablet 10 mg PO DAILY tab 11/01/20 [History Confirmed 06/08/21] polyethylene glycol 3350 17 gram/dose oral powder 17 g PO DAILY 11/01/20 [History Confirmed 06/08/21] venlafaxine 75 mg capsule,extended release 24 hr 75 mg PO DAILY cap 11/01/20 [History Confirmed 06/08/21] tiotropium-olodaterol [Stiolto Respimat] 2 puff INHALATION DAILY 03/23/21 [History Confirmed 06/08/21] amlodipine 2.5 mg tablet mg PO 05/31/21 [History Confirmed 06/08/21] PFSH Medical History Abdominal pain Arthritis Asthma Bronchitis Chronic constipation Degenerative joint disease Depression Emphysema lung GERD (gastroesophageal reflux disease) Hemorrhoids Hyperlipidemia Hyperlipidemia Hypertension Hypertension Microcytic anemia Smoking greater than 30 pack years SOB (shortness of breath) Surgical History H/O tubal ligation History of neck surgery History of tonsillectomy and adenoidectomy Hx of colonoscopy (~2019) Family History Mother Diabetes Hypertension Gastric ulcer Hyperlipidemia CVA (cerebral vascular accident) Father Diabetes COPD (chronic obstructive pulmonary disease) Hypertension Social History Smoking Status: Current every day smoker tobacco type: cigarettes Tobacco: How many years used: 45 alcohol intake: current alcohol intake frequency: holidays/special occasions only substance use type: marijuana caffeine: Yes what type of physical activity do you participate in: none frequency: does not exercise HPI HPI HPI: MATY SHEN, is a 66 F who presents to the office today for discussion of right breast biopsy pathology. This did show invasive ductal carcinoma grade 1/3, ER/NM positive, HER-2/karen negative. Patient states she did have some bruising at the biopsy site but it is doing well. ROS Breast Breast: Yes abnormal mammogram and abnormal US; No left breast lump, right breast lump, nipple discharge or breast pain Exam Const General: cooperative, healthy appearing, comfortable and no acute distress Neck Neck: normal visual inspection Chest Other: Inspection. Breast symmetric bilaterally. Left breast no masses or nipple discharge or tender to palpation. Right breast tender about 8-9 o'clock 4 cm from the nipple?ecchymosis resolving near biopsy site. Patient does have fibroglandular breast tissue unable to discretely identify the mass, no nipple discharge. Bilaterally no supraclavicular or axillary adenopathy. Resp Effort & Inspection: normal respiratory effort Cardio Rate: regular rate GI Inspection: non-distended Palpation: soft, no guarding and nontender Skin General: no rashes or lesions noted Neuro General: patient oriented x3 Psych Affect: normal affect COVID (Procedure Consent) Procedure Criteria Procedure Criteria: Yes Elective The surgeon/proceduralist and patient have discussed in detail the risk of exposure to and/or potential harm posed by the COVID-19 virus with having a surgery/procedure at this time versus the risk of delaying the surgery/procedure. It is not possible to know either the risk of delaying the surgery or procedure or chance of getting an infection with perfect accuracy, but a joint decision was made between the patient and the surgeon/proceduralist to proceed at this time with the scheduled surgery/procedure as indicated on the consent form. Assessment and Plan Assessment and Plan (1) Invasive ductal carcinoma of right breast: Status: Acute Plan - Dr. Kylah Aguero MD: I have given the patient options for initial surgical treatment. Options are the following: lumpectomy followed by radiation therapy vs. mastectomy vs. mastectomy followed by immediate reconstruction. I have described the procedures to the patient. I have described the advantages and disadvantages of the options, but I have told the patient that among the options, the survival rate for breast cancer is the same. I have told the patient that with all the surgeries that a sentinel lymph node biopsy is required. I have described the procedure of sentinel lymph node biopsy to the patient. I have told the patient that if the biopsy is positive for metastatic disease, then a full axillary lymph node dissection is required. I have told the patient that adjuvant chemotherapy will be required should the lymph nodes reveal metastatic disease. Also, a full lymph node dissection will increase the risk for lymphedema, especially if there are 4 or more lymph nodes positive for metastatic disease and radiation to the axilla is also required. I have told the patient the risks of surgery, including but not limited to: infection, bleeding, scar tissue, seroma and persistent seroma, lymph leak, injury to any blood vessels, injury to any nerves (particularly the long thoracic, the thoracodorsal, and the second intercostal brachial and the resultant sequelae), lymphedema, cosmetic deformity, dysesthesias, wound infections, further surgery (especially if margins are not clear), complications of anesthesia, etc. the patient understands. The patient will think about the o ptions and discuss it further with the family. The patient will contact me after she meets with Dr. Dos Santos with radiation oncology to let us know what she would like to do. Currently patient is leaning towards a lumpectomy. I have answered all the patient?s questions at this point to her satisfaction and she has no further questions. Greater than 50% of direct patient contact was spent in counseling or coordination of care. I spent 25 minutes counseling the patient and coordinating care. Addendum: Patient did meet with Dr. Dos Santos and is planning to have a right u ltrasound guided needle localization lumpectomy with sentinel lymph node biopsy, possible axillary lymph node dissection. Kylah Aguero M.D. Pager: [phone] [facility] [address] [place] [address], [address] [place] [address] Office: [phone] Coding Level of Care Code Off vis,est,level 4 Diagnoses Invasive ductal carcinoma of right breast C50.911 06/09/21 1302<Electronically signed by Kylah Aguero MD>Date Kylah Aguero MD
[2021-07-04] MEDS: 0.9% Normal Saline (Pres. free 10 ML Vial (12:04)
[2021-07-04] MEDS: Isosulfan Blue 1% 5 ML Vial (12:04)
--- NOTE | 2021-07-04 14:37 | BI_ITS ---
SURGICAL BREAST SPECIMEN RADIOGRAPH CLINICAL: Document presence of tissue clip marker in biopsy specimen. FINDINGS: Specimen shows presence of tissue clip marker. Electronically Signed: Dae Love MD at 14:52 EDT , Service support , BI/Breast Biopsy Specimen
--- NOTE | 2021-07-04 14:40 | OP.PCM_ITS ---
Report of Operation Date of Procedure: 07/04/21 Pre-Operative Diagnosis: Right breast cancer Post-Operative Diagnosis: Same Surgery/Procedure Performed:: Ultrasound-guided right breast lumpectomy, right axillary lymph node dissection Description of Surgical Findings:: Unable to detect hot or blue nodes only some blue lymphatics-- proceedws with axillary Lymph node dissection. Surgeon: Kylah Aguero Type of Anesthesia: General/Supplemental Anesthesiologist: Erich Lino Special Medications: Clinda 900 mg IV x1 Specimen's removed: 1. Right axillary lymph node dissection contents, 2. right lumpectomy Drains: ERICK in the right axilla Estimated Blood Loss (mL): 10 cc Description of Procedure: In radiology the breast tissue was injected with TC-9 9 sulfur colloid. 90 minutes later the patient was taken to the operating room and general anesthesia was induced. 5 cc of Lymphazurin 1% blue dye was injected in the 4 quadrants periareolar along with 10 cc of normal saline. This was massaged gently for 5 minutes. The right breast and axilla were prepped and draped in usual sterile fashion. A timeout was completed verifying correct patient, procedure, site, positioning, special equipment prior to beginning procedure. Handheld gamma probe was used to identify the location of the hottest spot in the axilla. Prior to the incision, the counts were 15. However unable to identify any hot nodes or blue nodes but did have some blue lymphatics, but unable to trace to nodes. Thus converted for axillary lymph node dissection. The borders of the axillary vein, latissimus dorsi, serratus anterior are ident ified. The intercostobrachial, long thoracic and thoracodorsal nerves are also identified and protected throughout the dissection. All the nodes within these borders are removed and sent to pathology. Ultrasound was use for localization of the breast mass using the Kopan's needle. The wire was placed just inferiorly to the mass. A radial incision was planned in such a way as to minimize the amount of dissection to reach the mass. Flaps were raised in the location of the wire confirmed. The wire was delivered into the wound. 2 silk [id number]-[id number]-[id number] stay suture was placed around the wire and used for traction. Dissection was then taken down circumferentially, taking care to include the entire localization needle and wide margin of grossly normal tissue. The specimen and entire localizing wire were removed. The specimen was oriented and sent to radiology with the localization studies. Confirmation was received that the entire target lesion had been resected. The wound was irrigated. Hemostasis was checked. The breast and axillary wounds were closed with interrupted sutures of 3-0 Vicryl and subcuticular sutures of 4-0 Monocryl. No attempt was made to close the space. Dermabond and supportive bra placed. The patient tolerated procedure well was taken to the postanesthesia care in stable condition. Complications none
[2021-07-04] MEDS: Bupivacaine Mpf 0.5% 30 ML VIAL (14:53)
[2021-07-04] MEDS: oxyCODONE 5 MG Tablet PO (21:40)
[2021-07-05 00:30] VITALS: BP 121/60; PULSE 68; RESP 16; TEMP 36.5; O2SAT 98; BMI 29.0
[2021-07-05] MEDS: Morphine 2 MG/ML Syringe IV (00:38)
[2021-07-05] MEDS: 0.9% Saline Lock 10 ML Syringe IV (00:38)
[2021-07-05 02:36] VITALS: BMI 29.0
[2021-07-05 03:20] VITALS: O2SAT 2
[2021-07-05 03:55] VITALS: BP 108/57; PULSE 68; RESP 16; TEMP 36.8; O2SAT 97
[2021-07-05 06:36] VITALS: BMI 29.0
[2021-07-05 06:45] VITALS: BP 116/52; PULSE 76; RESP 16; TEMP 36.6; O2SAT 99
[2021-07-05 07:10] VITALS: PULSE 72; RESP 16; O2SAT 94
[2021-07-05] MEDS: Ipratropium/Albuterol Sulfate 3 ML AMPUL.NEB INHALATION (07:10)
[2021-07-05 08:00] VITALS: BP 103/59; PULSE 72; RESP 16; TEMP 36.8; O2SAT 96
--- NOTE | 2021-07-05 08:39 | EX.PCM.DISCH ---
Discharge Instructions Procedure Breast Surgery Diet Discharge Diet: No restrictions Activity Discharge Activity: May Not Drive (for 2-3 days or while taking narcotic pain meds.) Lifting Restrictions: 10 pounds for 1 week. Dressing / Incision Call your doctor if your incision/area has: Continuous Slow Oozing, Sudden Increased Bleeding, Increased Pain/ Swelling and Increased Redness Call your doctor if you observe: Fever of 101 or Higher Suture Line Care: Avoid Pulling/Pushing and Avoid Pinching/Bending Remove Dressing in: 1 day Additional Dressing/Incision Instructions:: Remove bulky dressing tomorrow. Do not shower with ERICK in place, keep log of ERICK for appt. Follow Up Care Please Follow Up With: Kylah Aguero MD When: call office for f/u appt early next week--if low ERICK output <15 cc for couple of days ok to make appt for Sunday Test Results: Test results from this visit will be discussed in further detail at your follow-up appointment, if applicable. Discharge Plan Admission Admit Date/Time: 07/04/21 14:47 Attending Provider: Kylah Aguero Primary Care Provider: Frederick Poe Discharge Orders/Prescriptions Prescriptions: New oxycodone-acetaminophen [Endocet] 5-325 mg tablet 1 tab PO Q6H PRN (Reason: pain) 3 Days Qty: 7 RF: 0 Continued atorvastatin [Lipitor] 20 mg tablet 20 mg PO QHS RF: 0 venlafaxine [Effexor XR] 150 mg capsule,extended release 24hr 150 mg PO DAILY RF: 0 cholecalciferol (vitamin D3) 125 mcg (5,000 unit) capsule 125 mcg PO DAILY RF: 0 albuterol sulfate 90 mcg/actuation HFA aerosol inhaler 2 puff INHALATION Q4H PRN (Reason: shortness of breath or wheezing) Qty: 1 RF: 6 venlafaxine 75 mg capsule,extended release 24hr 75 mg PO DAILY RF: 0 citalopram 10 mg tablet 10 mg PO DAILY RF: 0 polyethylene glycol 3350 [Miralax] 17 gram/dose powder 17 g PO DAILY RF: 0 amlodipine 2.5 mg tablet 5 mg PO DAILY RF: 0 Stiolto Respimat 2.5-2.5 mcg/actuation mist 2 puff INHALATION DAILY RF: 0 Referrals / Follow Up: Deepika,Frederick, MD [Primary Care Provider] - Disposition Disposition (needs filled in before D/C Order can be placed): Home, Self Care
--- NOTE | 2021-07-05 08:43 | PCM.PN.SRG ---
Subjective Subjective Patient doing well and some minor soreness at the axilla denies any numbness. Pain controlled. Objective Data Objective Data Vital Signs: Vital Signs Temp Pulse Resp BP Pulse Ox 97.9 F 72 16 116/52 L 94 07/05/21 06:45 07/05/21 07:10 07/05/21 07:10 07/05/21 06:45 07/05/21 07:10 Oxygen Flow Rate (L/min) 2 Oxygen Delivery Method Room Air Weight: 158 lb 11.725 oz Body Mass Index (BMI) 29.0 Intake & Output: Intake and Output for Last 24 Hours 07/03/21 07/04/21 07/05/21 23:59 23:59 23:59 Intake Total 2206 / 2206 Output Total 375 / 375 310 / 310 Balance 1831 / 1831 -310 / -310 Radiography Diagnostic Testing: Radiology Impression [place] Node 07/04/21 09:00 IMPRESSION: 1.1 mCi of Tc labeled sulfur colloid was injected subcutaneously in the lateral right periareolar region. Electronically Signed: Dae Love MD at 10:07 EDT , Service support , Breast Biopsy 07/04/21 14:37 Physical Exam Chest Chest Narrative: Right axilla and right breast incision clean dry and intact with Dermabond. ERICK sanguinous Resp normal respiratory effort Cardio regular rate Assessment & Plan Assessment/Plan (1) Invasive ductal carcinoma of right breast: (2) S/P lumpectomy, right breast: PLAN: Postop day 1 status post right breast lumpectomy, right axillary lymph node dissection 1. Patient is doing well tolerating diet, pain controlled. 2. ERICK sanguinous 3. Okay to ME home after ERICK teaching patient follow-up in office either later this week or early next week. Patient no further questions. Kylah Aguero M.D. Pager: [phone] [facility] [address] [place] [address], [facility], [address] [place] [address] Office: [phone]
[2021-07-05] MEDS: oxyCODONE 5 MG Tablet PO (09:08)
[2021-07-05] MEDS: Acetaminophen 325 MG Tablet 650 MG PO (09:09)
[2021-07-05 09:29] VITALS: BMI 29.0
== END 2021-07-05 10:37 | disposition home or self-care (01) ==
LOC: SDC 16:41 → MS2 16:41
PROVIDERS: Admitting Provider Surgery; PCP Family Medicine; Referring Provider Surgery; Visit Provider Surgery
PROC: (CPT 19301; principal; 2021-07-04 11:45)
DX: C50.911 Malignant neoplasm of unspecified site of right female breast (principal); M19.90 Unspecified osteoarthritis, unspecified site; K21.9 Gastro-esophageal reflux disease without esophagitis; J43.9 Emphysema, unspecified; F32.A Depression, unspecified; E78.5 Hyperlipidemia, unspecified; I10 Essential (primary) hypertension; F17.210 Nicotine dependence, cigarettes, uncomplicated; Z79.899 Other long term (current) drug therapy; Z17.0 Estrogen receptor positive status [ER+]
CPT/HCPCS: 01610; 19302; 38792; 76098; 88305; 88307; 94640; 96374; 99218; 99251; A9541; J7120; A4216; G0378; G0463; J2405; J3490; Q9968

== ENCOUNTER 2021-11-02 10:47 | Outpatient (RCR) | payer MEDICARE, SELFPAY ==
--- NOTE | 2021-11-03 09:06 | HP.OTEVAL_ITS ---
Patient's Visit Information MATY SHEN is a 66 year old F, referred to Occupational Therapy by Dr. Cristino Degroot MD, with a diagnosis of right UE lymphedema. Date of Evaluation: 11/02/21 Occupational Therapist: Gely Santamaria, PEDRO LUISR/Beni, CHT - Subjective This 66 year old female was seen for OT eval with dx of right UE lymphedema -. Pt states she had her sx in 2020- pt states she did not have chemo- but had 5-6 sessions of radiation-. pt states she noticed she was unable to get her rings on her hands- in Late. Aug. around Miryam time. pt states she has a feeling of tightness- in am or when she used her mouse. pt states she has been on disability at age 57 with DDD . pt reports she does not exercise on a re gular basis. - ROM ROM Comments: pt demo full ROM - Lymphedema (Circumferential Measure) MCP: right 19cm left 19cm Wrist: right 15cm left 14.6 cm Lower forearm: right 16cm left 16cm Largest forearm: right 23cm left 22.5cm Elbow: right 24cm left 23cm Largest humerus: right 28cm left 28cm Axcillary: right 34 leeft 34 Upper Exremity Comments: right IF PIP 6.0 left 5.7. right MF PIP 5.5 left 5.5. right RF PIP 5.3 left 5.0. right LF PIP 4.5 left 4.5. right thumb 5.6 left 5.4 - Quick DASH-Disab of Arm,Shoulder& Hand Quick DASH Score: 29.5450 - Goals Demonstrate a 20% reduction in edema by d/c: Yes Demonstrate adequate knowledge of self-massage by 2nd week: Yes Demonstrate adequate knowledge skin care/prec by 2nd week: Yes Demonstrate adequate knowledge therapeutic exercises by d/c: Yes Select approp compression garment w/donning/care/wear by d/c: Yes Voice need to replace compression garment every 4-6mo by dc: Yes - Rehabilitation General Assessment: pt demo with slight swelling in right digits- would classify pt at stage I, due to swelling is intermittent- still my have some OA issues with her fingers but no recent x-ray- Therapist ed. pt on lymphedema and need of compression garment glove and sleeve 20-30 mmHg and to use daily and with flights if traveling. Pt yanelio understanding- therapist ed. pt on how to perform self manual massage ( gave handout) rec'd pt to perform 3-4x a day for best results done in conjunction with compression garments- pt yanelio understanding- therapist offered follow up visit to ed. on SMLD and declined follow up visit- pt instructed to call if she had questions or concerns. Rehabilitation Potential: Excellent - Anticipated Interventions Education re Diagnosis, Education re Life-long lymphedema Management, Education re Skin Care and Precautions, Education re Self Massage Techniques, Education re Correct Donning Tech,Care&Wearing Sched Comp Garments, Home Program - Visit Plan General Plan: pt declined follow up visit due to high co-pay. stated she would call if she had questions or concerns- TEXT: Thank you for the opportunity to evaluate your patient. For Medicare and Medicare HMO plans, please review the plan of care and approve it. It will need to be FAXED BACK to us at [phone] for Medicare purposes. Please let me know if there are questions or concerns regarding this plan of care. Physician Signature: Date:
== END 2021-11-02 19:00 | disposition home or self-care (01) ==
LOC: OT 10:47
PROVIDERS: PCP Family Medicine; Referring Provider Internal Medicine Hematology & Oncology; Visit Provider Internal Medicine Hematology & Oncology
DX: I89.0 Lymphedema, not elsewhere classified (principal); C50.911 Malignant neoplasm of unspecified site of right female breast; Z98.890 Other specified postprocedural states
CPT/HCPCS: 97166; 97530

== ENCOUNTER → 2022-05-08 | Outpatient (CLI) | payer MEDICARE, SELFPAY ==
--- NOTE | 2022-05-08 09:23 | NM_ITS ---
CLINICAL: 67-year-old female with history of carcinoma of the breast with reported low back discomfort. WHOLE BODY 99m Tc MDP RADIONUCLIDE BONE SCINTIGRAPHY COMPARISON: None available FINDINGS: Following the intravenous administration of 26.6 mCi of 99m Tc MDP, whole body bone images reveal: 1. Increased radiopharmaceutical concentration is identified in the third and fifth lumbar vertebra anteriorly-posteriorly on the left and right, the acromioclavicular and sternoclavicular compartments of both shoulders. 2. The remaining skeletal structures are scintigraphically unremarkable with normal-appearing renal images and urinary bladder activity identified. NM/Bone Scan Whole Body IMPRESSION: 1. The increase in radiopharmaceutical concentration identified in the lumbar spine and shoulder articulations is most consistent with degenerative arthrosis. Plain film x-ray correlation may be of benefit in the lumbar spine. 2. There is no definitive scintigraphic evidence of diffuse axial skeletal metastatic disease. Electronically Signed: Demetris Diaz, at 8:27 EDT ,
== END | disposition home or self-care (01) ==
LOC: NM 09:22
PROVIDERS: PCP Family Medicine; Visit Provider Internal Medicine Hematology & Oncology
DX: M54.50 Low back pain, unspecified (principal); Z85.3 Personal history of malignant neoplasm of breast
CPT/HCPCS: 78306; A9503

== ENCOUNTER → 2022-05-11 | Outpatient (CLI) | payer MEDICARE, SELFPAY ==
--- NOTE | 2022-05-11 10:13 | MRI_ITS ---
STUDY: MRI BRAIN WITH AND WITHOUT CONTRAST REASON FOR EXAM: Female, 67 years old. NEW ONSET HEADACHE 3 WEEKS H/O BREAST CANCER TECHNIQUE: Standardized multiplanar fat and water weighted pulse sequences were obtained. IV 13 cc clariscan was administered for the contrast portion of the examination. COMPARISON: None. FINDINGS: Normal size of the ventricles and extra-axial spaces for the patient''s age. There are a limited number of small white matter hyperintensities, distributed throughout the deep white matter tracts of the cerebral hemispheres, consistent with mild chronic white matter ischemic changes. There is no evidence for recent intracranial ischemia or other cause of cytotoxic edema on diffusion weighted imaging (DWI). Normal T2* images of the brain without demonstrated susceptibility artifact. There is no demonstrated hemosiderin stain. No focal brain parenchymal lesions or abnormal enhancement is seen on the current study. No abnormal thickening or enhancement of meninges or dura on the current study. No skull lesions are seen. Normal bilateral basal ganglia. Normal thalami. There is no extra-axial fluid accumulation. Normal flow voids within the major intracranial circulation suggesting patency by spin echo criteria. Normal venous enhancement. There is no enhancing intra-axial or extra-axial abnormality. Normal sella turcica, pituitary gland, infundibular stalk, optic chiasm and hypothalamus. Normal tectal plate and pineal gland. Normal midbrain, teri and medulla. Normal cerebellum. Normal basal cisterns. Normal bilateral temporal bones. Normal bilateral internal auditory canals. No demonstrated orbital abnormality, within the constraints of a routine brain study. There is moderate to severe mucus opacification of the right sphenoid sinus and posterior ethmoid air cells. Normal calvarium and skull base. Normal visualized soft tissue structures. Normal visualized upper cervical spine. MRI/Brain W/WO Contrast IMPRESSION: 1. Mild chronic ischemic changes of the brain, as described above. 2. No focal brain parenchymal lesions or abnormal enhancement is seen on the current study. No abnormal thickening or enhancement of meninges or dura on the current study. No skull lesions are seen. 3. Moderate to severe mucus opacification of the right sphenoid sinus and posterior ethmoid air cells. Electronically Signed: gAustin Graves MD at 15:14 EDT ,
== END | disposition home or self-care (01) ==
PROVIDERS: PCP Family Medicine; Visit Provider Internal Medicine Hematology & Oncology
DX: R51.9 Headache, unspecified (principal); Z85.3 Personal history of malignant neoplasm of breast
CPT/HCPCS: 70553; A9575

== ENCOUNTER → 2022-07-04 | Outpatient (CLI) | payer MEDICARE, SELFPAY ==
--- NOTE | 2022-07-04 14:03 | BI_ITS ---
MAMMOGRAPHY - BILATERAL SCREENING REASON FOR EXAM: Female, 67 years old. Routine annual screening examination. PERTINENT HISTORY: Personal history of breast cancer. Prior right lumpectomy and radiation treatment. Aunt with breast cancer. TECHNIQUE: Digital bilateral breast mike (3D mammographic acquisition) in the CC and MLO projections. 2-D mediolateral oblique (MLO) and craniocaudad (CC) views of both breasts were obtained. CAD: Full Field Digital Mammography with Computer Added Detection was performed. COMPARISON: Comparison is made with prior study dated 05/24/2021 and 05/26/2021. FINDINGS: Breast Composition: The breasts are heterogeneously dense, which may obscure small masses. There are no dominant masses or suspicious calcifications. Since prior study, the patient underwent lumpectomy in the upper lateral aspect of the right breast with postoperative scarring. Surgical clips are also seen in the right axilla. The left breast is unchanged. No other significant abnormalities are identified. BI/SCRN MAMM (CAD)W/MIKE BILAT IMPRESSION: Status post lumpectomy in the upper lateral aspect of the right breast with the surgical changes in the right axilla. Yearly follow-up mammogram recommended. (A) ASSESSMENT CATEGORY: BIRADS Category 2: Benign. A letter regarding these results will be sent to the patient by the facility within 30 days. Approximately 10% of breast cancers are not detected by mammography. A normal mammogram should not delay biopsy of a clinically suspicious abnormality. [id number] Electronically Signed: Dae Love MD at 15:08 EDT ,
== END | disposition home or self-care (01) ==
LOC: OPBI 14:02
PROVIDERS: PCP Family Medicine; Visit Provider Student in an Organized Health Care Education/Training Program
DX: Z12.31 Encounter for screening mammogram for malignant neoplasm of breast (principal); Z80.3 Family history of malignant neoplasm of breast
CPT/HCPCS: 77063; 77067

== ENCOUNTER → 2022-08-08 | Outpatient (CLI) | payer MEDICARE, SELFPAY ==
--- NOTE | 2022-08-08 12:56 | CT_ITS ---
STUDY: LOW DOSE CT LUNG CANCER SCREENING REASON FOR EXAM: Female, 67 years old. Lung cancer screening -- and gt;20 pk yr hx; current smoker; asymptomatic RADIATION DOSAGE (If Supplied By Facility): CTDIvol = ( 3.02 ) mGy, DLP = ( 113.25 ) mGycm TECHNIQUE: No contrast was administered. Low dose technique was utilized (average mAS-38 and kVp 120). 1.25 mm axial source images with a slice interval of 1.25-mm were reconstructed in lung windows. 2.5 mm axial source images with a slice interval of 2.5-mm were reconstructed in lung windows. 5.0 mm axial source images with a slice interval of 5.0-mm were reconstructed in soft tissue windows. COMPARISON: Comparison is made with prior study 06/29/2021. NODULES: No suspicious nodules are seen. Emphysema: Hyperinflation. Mild degree of emphysematous changes. Minimal increased markings at the lung bases suggests scarring. Endobronchial lesion: None Aorta: Atherosclerotic plaque formation. CORONARY ARTERIES: Coronary artery calcification is seen. Heart: Unremarkable. Pulmonary artery: Unremarkable. Mediastinal nodes: Unremarkable. Other chest and abdominal findings: CT/Low Dose CT Lung Screening IMPRESSION: Lung-RADS category 2 - Continue annual screening with LDCT in 12 months. IMPORTANT NOTES FOR USE: ACR Lung-RADS Version 1.1 Assessment Categories Release Date: 2018 Category: Coded 0-4 bases on nodule(s) with highest degree of suspicion. Negative screen is defined as categories 1 and 2; a positive screen is defined as categories 3 and 4. Category 3 and 4A nodules that are unchanged on interval CT should be coded as category 2, and individuals returned to screening in 12 months. Category 4X: Category 3 or 4 nodules with additional imaging findings that increase the suspicion of lung cancer, such as spiculation, GGN that doubles in size in 1 year, enlarged lymph notes, etc. Category Modifiers: S (significant finding unrelated to lung cancer) Electronically Signed: Dae Love MD at 14:09 EST ,
== END | disposition home or self-care (01) ==
LOC: CT 12:55
PROVIDERS: PCP Family Medicine; Visit Provider Nurse Practitioner Family
DX: Z12.2 Encounter for screening for malignant neoplasm of respiratory organs (principal); Z87.891 Personal history of nicotine dependence
CPT/HCPCS: 71271

== ENCOUNTER → 2022-08-30 | Outpatient (CLI) | payer MEDICARE, SELFPAY ==
--- NOTE | 2022-08-30 06:32 | MRI_ITS ---
HISTORY: Low back pain, bilateral leg pain, numbness and tingling left side worse than right, history of breast cancer TECHNIQUE: Multiplanar and multisequence MR images of the lumbar spine were obtained without intravenous contrast. 131 images. COMPARISON: XR 08/09/2022. MR 09/08/2014. FINDINGS: VERTEBRAE: Vertebral body heights maintained. Degenerative endplate changes at multiple levels particularly L2-3 and L4-5. ALIGNMENT: Mild levoscoliosis. Chronic 2 mm retrolisthesis of L1-2 and L2-3. CONUS: Normal morphology and position of the conus medullaris at T12-L1. Tortuosity and redundancy of the cauda equina nerve roots secondary to spinal canal stenosis. INTERVERTEBRAL DISCS: Posterior disc bulge osteophyte complexes with facet arthropathy at multiple levels. T12-L1: Minimal narrowing of the thecal sac and right foramen based on the sagittal images. L1-2: Mild central canal stenosis progressed from prior, mild left foraminal narrowing, and moderate right foraminal narrowing with impingement of the right L1 nerve root similar to prior. L2-3: Right paracentral disc protrusion increased from prior with moderate-severe central canal stenosis and impingement of the right L3 nerve root. Mild-moderate left and moderate right foraminal narrowing with abutment of the bilateral L2 nerve roots, also progressed from prior. L3-4: Disc bulge eccentric to the left increased from prior with moderate central canal stenosis, left L4 nerve root impingement, moderate right, and moderate-severe left foraminal narrowing. L4-5: Moderate central canal stenosis with mild right and moderate left foraminal narrowing with abutment of the left L4 nerve root, increased from prior. L5-S1: Mild-moderate central canal stenosis and moderate right foraminal narrowing, progressed from prior. Mild left foraminal narrowing with abutment of the left L5 nerve root, similar to prior. SOFT TISSUES: Mild posterior subcutaneous and intramuscular edema. Bilateral renal cysts. 9 mm subcutaneous nodule posterior to the right sacroiliac joint. MRI/Spine Lumbar (Routine) IMPRESSION: Progression of multilevel degenerative disc disease with spinal canal stenosis and nerve root impingement as above. Small nodule possible lymph node in the posterior subcutaneous soft tissues. Recommend follow-up. Electronically Signed: Dinah Harvey MD at 8:42 EST ,
== END | disposition home or self-care (01) ==
PROVIDERS: PCP Family Medicine; Referring Provider Orthopaedic Surgery; Visit Provider Orthopaedic Surgery
DX: M54.16 Radiculopathy, lumbar region (principal)
CPT/HCPCS: 72148

== ENCOUNTER → 2022-11-07 | Outpatient (CLI) | payer MEDICARE, SELFPAY ==
[2022-11-07 17:55] LABS: Absolute Lymphocyte Count 2.11 X10^3/uL (0.83-4.51); Absolute Neutrophil Count 3.2 X10^3/uL (2.0-7.7); Basophil# 0.04 X10^3/uL; Basophil% 0.7 % (0-1); Eosinophil# 0.12 X10^3/uL; Hematocrit 43.5 % (37-47); Hemoglobin 14.7 g/dL (12.0-15.0); Lymphocyte # 2.11 X10^3/ul (0.83-4.51); Lymphocyte % 35.8 % (19-41); Mean Corp Hgb Conc 33.8 g/dL (32-36); Mean Corpuscular Hgb 29.9 pg (27.0-32.0); Mean Corpuscular Volume 88.4 fL (81-99); Mean Platelet Vol. 11.8 fl (6.2-12.0); Monocyte# 0.46 X10^3/uL; Monocyte% 7.8 % (0-10); NRBC Flagged by Analyzer 0 % (0-5); Neutrophil # 3.15 X10^3/uL (2.7-7.7); Neutrophil % 53.5 % (47-70); Platelet Count 192 K/mm3 (150-450); RBC Distribution Width CV 12.6 % (11.6-14.6); RBC Distribution Width SD 41.1 fl (35.1-43.9); Red Blood Count 4.92 M/mm3 (4.2-5.4); White Blood Count 5.9 K/mm3 (4.4-11.0)
[2022-11-07 18:18] LABS: ALB/GLOB Ratio 1.2 RATIO (0.9-2.4); AST(SGOT) 19 U/L (15-37); Alanine Aminotransfer ALT/SGPT 27 U/L (13-56); Albumin, Serum 3.8 g/dL (3.2-5.0); Alkaline Phosphatase 69 U/L (45-117); Anion Gap 5 (5-15); BUN 13 mg/dL (7-18); BUN/Creat Ratio 12.9 RATIO (10-20); Calcium,Total 9.5 mg/dL (8.5-10.1); Chloride 104 mmol/L (98-107); Creatinine, Serum 1.01 mg/dL (0.55-1.02); EST Glomerular Filtration Rate 58 mL/min (>60); Est Glom Filt Rate - Afr Amer 70 mL/min (>60); Globulin 3.1 g/dL (2.2-4.2); Glucose 96 mg/dL (74-106); Potassium 3.6 mmol/L (3.5-5.1); Protein, Total 6.9 g/dL (6.4-8.2); Sodium Level 140 mmol/L (136-145)
[2022-11-07 18:43] LABS: Hepatitis C Antibody Non-Reactive (Nonreactive); Vitamin D,25 Hydroxy 59.1 ng/mL
== END | disposition home or self-care (01) ==
LOC: POLAB3 16:25
PROVIDERS: PCP Family Medicine; Visit Provider Family Medicine Geriatric Medicine
DX: I10 Essential (primary) hypertension (principal); E55.9 Vitamin D deficiency, unspecified; Z13.89 Encounter for screening for other disorder
CPT/HCPCS: 36415; 80053; 82306; 84443; 85025; 86803

== ENCOUNTER → 2023-02-05 | Outpatient (CLI) | payer MEDICARE, SELFPAY ==
--- NOTE | 2023-02-05 09:01 | US_ITS ---
EXAM: US Lower Extremity, limited, joint or other nonvascular extremity HISTORY: ? NODULE ON MRI 08/2022 -- U/S SOFT TISSUES BEHIND RIGHT SI JOINT TECHNIQUE: Superficial soft tissues with grayscale and color Doppler imaging. COMPARISON: Report of MRI lumbar spine 08/30/2022. LIMITATIONS: None. FINDINGS: Limited evaluation of the area of concern right gluteal region/overlying the right sacroiliac joint. There are 2 small adjacent nodules in this region which demonstrate posterior shadowing, that measure approximately 0.8 x 0.4 x 0.5 cm, and 0.5 x 0.4 x 0.5 cm. No fluid collection. US/Ext Non Vasc Limited/Soft Tiss IMPRESSION: 2 small nodules with calcifications in the soft tissues. Electronically Signed: Christina Barksdale MD at 4:10 EDT ,
== END | disposition home or self-care (01) ==
LOC: US 08:54
PROVIDERS: PCP Family Medicine Geriatric Medicine; Referring Provider Internal Medicine Hematology & Oncology; Visit Provider Internal Medicine Hematology & Oncology
DX: R06.02 Shortness of breath (principal)
CPT/HCPCS: 76882

== ENCOUNTER → 2023-05-07 | Outpatient (CLI) | payer MEDICARE, SELFPAY ==
--- NOTE | 2023-05-07 09:07 | US_ITS ---
STUDY: SUPERFICIAL ULTRASOUND - RIGHT SACROILIAC JOINT. REASON FOR EXAM: Female, 68 years old. F/U 2 NODULES COMPARE MRI 10-31-21 U/S 02-05-23 -- U/S SOFT TISSUES BEHIND RIGHT SI JOINT TECHNIQUE: A superficial ultrasound was performed with real-time and static kinsey-scale imaging. COMPARISON: Comparison is made with prior sonogram dated February 05, 2023 and prior MRI dated August 30, 2022. FINDINGS: Stable 5 mm x 6 mm x 5 mm nodules overlying the posterior right sacroiliac joint. Posterior shadowing is seen. This may represent possible calcified lymph nodes. US/Ext Non Vasc Limited/Soft Tiss IMPRESSION: Stable examination. Electronically Signed: Dae Love MD at 13:32 EDT ,
== END | disposition home or self-care (01) ==
LOC: US 09:06
PROVIDERS: PCP Family Medicine Geriatric Medicine; Referring Provider Internal Medicine Hematology & Oncology; Visit Provider Internal Medicine Hematology & Oncology
DX: M53.3 Sacrococcygeal disorders, not elsewhere classified (principal)
CPT/HCPCS: 76882

== ENCOUNTER → 2023-05-10 | Outpatient (CLI) | payer MEDICARE, SELFPAY ==
[2023-05-10 11:25] LABS: Absolute Lymphocyte Count 1.55 X10^3/uL (0.83-4.51); Absolute Neutrophil Count 3.5 X10^3/uL (2.0-7.7); Basophil# 0.03 X10^3/uL; Basophil% 0.5 % (0-1); Eosinophils% 1.8 % (0-5); Hematocrit 41.2 % (37-47); Hemoglobin 13.2 g/dL (12.0-15.0); Lymphocyte # 1.55 X10^3/ul (0.83-4.51); Mean Corpuscular Hgb 28.3 pg (27.0-32.0); Mean Corpuscular Volume 88.2 fL (81-99); Mean Platelet Vol. 11.5 fl (6.2-12.0); Monocyte# 0.38 X10^3/uL; Monocyte% 6.9 % (0-10); NRBC Flagged by Analyzer 0 % (0-5); Neutrophil # 3.46 X10^3/uL (2.7-7.7); Neutrophil % 62.6 % (47-70); Platelet Count 198 K/mm3 (150-450); RBC Distribution Width CV 13.4 % (11.6-14.6); RBC Distribution Width SD 43.5 fl (35.1-43.9); Red Blood Count 4.67 M/mm3 (4.2-5.4); White Blood Count 5.5 K/mm3 (4.4-11.0)
[2023-05-10 11:53] LABS: ALB/GLOB Ratio 1.1 RATIO (0.9-2.4); AST(SGOT) 18 U/L (15-37); Alanine Aminotransfer ALT/SGPT 21 U/L (13-56); Albumin, Serum 3.6 g/dL (3.2-5.0); Alkaline Phosphatase 74 U/L (45-117); Anion Gap 5 (5-15); BUN 12 mg/dL (7-18); BUN/Creat Ratio 11.4 RATIO (10-20); Calcium,Total 9.4 mg/dL (8.5-10.1); Chloride 107 mmol/L (98-107); Creatinine, Serum 1.05 mg/dL (0.55-1.02); EST Glomerular Filtration Rate 55 mL/min (>60); Est Glom Filt Rate - Afr Amer 67 mL/min (>60); Globulin 3.4 g/dL (2.2-4.2); Glucose 95 mg/dL (74-106); Potassium 3.4 mmol/L (3.5-5.1); Sodium Level 140 mmol/L (136-145); Thyroid Stim Hormone (TSH) 2.62 uIU/mL (0.358-3.74)
== END | disposition home or self-care (01) ==
PROVIDERS: PCP Family Medicine Geriatric Medicine; Visit Provider Family Medicine Geriatric Medicine
DX: I10 Essential (primary) hypertension (principal); E55.9 Vitamin D deficiency, unspecified
CPT/HCPCS: 36415; 80053; 82306; 84443; 85025

== ENCOUNTER → 2023-08-14 | Outpatient (CLI) | payer MEDICARE, SELFPAY ==
--- NOTE | 2023-08-14 13:25 | CT_ITS ---
HISTORY: LUNG CA SCREENING. TECHNIQUE: Helically acquired images were obtained of the chest without contrast. A radiation dose optimization technique was used for this scan. 852 images. COMPARISON: 08/08/2022 06/29/2021. FINDINGS: LARGE AIRWAYS: Patent. LUNGS: Mild hyperinflation and centrilobular emphysema. Scattered mild scarring. Stable 2 mm right upper lobe nodules or scars. Mild linear bilateral lower lobe atelectasis or scarring. Stable 2 mm left upper lobe nodule along the fissure. PLEURA: No pneumothorax or significant pleural effusion. HEART/PERICARDIUM: Heart within normal limits in size with coronary artery calcification. No pericardial effusion. VESSELS: Thoracic aorta nondilated. Mild atherosclerosis. MEDIASTINUM/BAKARI: No pathologically enlarged adenopathy. UPPER ABDOMEN: Unremarkable. BONES: Cervical spinal fusion hardware noted. Degenerative change and mild scoliosis. Chronic right breast skin thickening. CT/Low Dose CT Lung Screening IMPRESSION: Mild emphysema with stable 2 mm upper lobe pulmonary nodules or scars. Lung-RADS category 2: Continue annual screening with low dose CT. Electronically Signed: Dinah Harvey MD at 14:32 EST ,
--- NOTE | 2023-08-14 13:44 | BI_ITS ---
MAMMOGRAPHY - BILATERAL SCREENING 3-D TOMOSYNTHESIS REASON FOR EXAM: Female, 68 years old. ANNUAL SCREENING PERTINENT HISTORY: Personal history of breast cancer, maternal aunt with breast cancer, previous right lobectomy. TECHNIQUE: 2-D mammograms and 3-D Tomosynthesis of the breast (s) were performed. CAD was performed. COMPARISON: Multiple studies dating back to 05/23/2021 FINDINGS: The breast composition is heterogeneously dense that can obscure small breast masses. Scattered benign calcifications are seen. No dense spiculated masses or suspicious microcalcifications are identified. Stable architectural distortion in the right breast from previous surgery.. There is no skin thickening or retraction. Stable punctate and vascular calcifications. There has been no significant change since the prior study. BI/SCRN MAMM (CAD)W/MIKE BILAT IMPRESSION: No mammographic signs of malignancy. Routine yearly mammograms recommended. ASSESSMENT CATEGORY: BIRADS Category 2: Benign. A letter regarding these results will be sent to the patient by the facility within 30 days. FOLLOW UP RECOMMENDATION: Yearly follow up mammogram recommended. (A) Approximately 10% of breast cancers are not detected by mammography. A normal mammogram should not delay biopsy of a clinically suspicious abnormality. Electronically Signed: Zia Isabel MD at 10:10 EST ,
--- NOTE | 2023-08-14 14:06 | BD_ITS ---
STUDY: DUAL ENERGY X-RAY ABSORPTIOMETRY / DXA REASON FOR EXAM: Female, 68 years old. SCREENING TECHNIQUE: Bone Mineral Density (BMD) measurements of lumbar spine and bilateral hips were obtained. COMPARISON: Comparison is made with prior examination of May 05, 2021. FINDINGS: Lumbar Spine (L1-L4): g/cm2 (1.114) / T-score (0.7) / Z-score (2.7) Findings are suggestive of normal bone density with a low fracture risk. Left Femur Total: g/cm2 (0.803) / T-score (-1.1) / Z-score (0.3) Left Femoral Neck: g/cm2 (0.764) / T-score (-0.8) / Z-score (0.9) Right Femur Total: g/cm2 (0.834) / T-score (-0.9) / Z-score (0.5) Right Femoral Neck: g/cm2 (0.770) / T-score (-0.7) / Z-score (1.0) The T-Scores on the most recent prior examination were: Lumbar Spine (L1-L4): There has been improvement of bone density since the previous examination. Left Femur Total: which represents an improvement of 6.8%. Right Femur Total: which represents an improvement of 7.3%. BD/Dexa Bone Density Study IMPRESSION: The patient is considered osteopenic as outlined below according to World Sean Organization (WHO) criteria with a low fracture risk. There has been improvement of bone density since the previous examination. Reference Information: The T-score is the number of standard deviations above or below the standard which is normal for young adults at their peak bone mineral density. The World Health Organization (WHO) interprets the T-scores as follows: Above -1 Normal bone density Between -1 and -2.5 Osteopenia Equal to / or below -2.5 Osteoporosis As a practical clinical guideline, osteopenia may be graded as follows: Mild -1 through -1.5 Moderate -1.6 through -2.0 Severe -2.1 through -2.4 The Z-score is the number of standard deviations above or below age-matched controls. A Z-score of less than -1.5 would be considered abnormal. References: 1. NIH Osteoporosis and Related Bone Diseases www osteo.org 2. International Society for Clinical Densitometry www iscd.org 3. National Osteoporosis Foundation www nof.org Electronically Signed: Dae Love MD at 8:45 EST ,
== END | disposition home or self-care (01) ==
PROVIDERS: PCP Family Medicine Geriatric Medicine; Referring Provider Internal Medicine Hematology & Oncology; Visit Provider Nurse Practitioner Family
DX: Z12.31 Encounter for screening mammogram for malignant neoplasm of breast (principal); Z78.0 Asymptomatic menopausal state; Z85.3 Personal history of malignant neoplasm of breast; Z87.891 Personal history of nicotine dependence
CPT/HCPCS: 71271; 77063; 77067; 77080

== ENCOUNTER → 2023-09-10 | Outpatient (CLI) | payer MEDICARE, SELFPAY ==
--- NOTE | 2023-09-10 10:24 | US_ITS ---
STUDY: ULTRASOUND BREAST - RIGHT REASON FOR EXAM: Female, 68 years old. Upper-outer quadrant right breast pain. TECHNIQUE: Axial and longitudinal images of the RIGHT breast were performed with a high resolution ultrasound transducer. # OF IMAGES: 32 COMPARISON: Comparison is made with prior mammogram dated August 14, 2023 and prior sonogram of the right breast dated May 26, 2021. FINDINGS: RIGHT Breast: The upper-outer quadrant of the right breast was examined with ultrasound. There is evidence of dilated ducts with low-level echoes within the ducts. US/Breast Limited Unilateral IMPRESSION: Dilated ducts with the echoes seen within them in the upper-outer quadrant of the right breast. Palpable mass should be ruled out. ASSESSMENT CATEGORY: BIRADS Category 2: Benign. A letter regarding these results will be sent to the patient by the facility within 30 days. Electronically Signed: Dae Love MD at 13:43 EST ,
== END | disposition home or self-care (01) ==
LOC: OPBI 10:22
PROVIDERS: PCP Family Medicine Geriatric Medicine; Referring Provider Nurse Practitioner Family; Visit Provider Nurse Practitioner Family
DX: N64.4 Mastodynia (principal)
CPT/HCPCS: 76642

== ENCOUNTER → 2023-11-13 | Outpatient (CLI) | payer MEDICARE, SELFPAY ==
[2023-11-13 12:19] LABS: Absolute Lymphocyte Count 1.45 X10^3/uL (0.83-4.51); Basophil# 0.03 X10^3/uL; Basophil% 0.6 % (0-1); Eosinophil# 0.12 X10^3/uL; Eosinophils% 2.4 % (0-5); Hematocrit 38.4 % (37-47); Lymphocyte # 1.45 X10^3/ul (0.83-4.51); Lymphocyte % 29.2 % (19-41); Mean Corp Hgb Conc 31.3 g/dL (32-36); Mean Corpuscular Hgb 25.6 pg (27.0-32.0); Mean Corpuscular Volume 82.1 fL (81-99); Mean Platelet Vol. 11.3 fl (6.2-12.0); Monocyte# 0.38 X10^3/uL; Monocyte% 7.7 % (0-10); NRBC Flagged by Analyzer 0 % (0-5); Neutrophil # 2.97 X10^3/uL (2.7-7.7); Neutrophil % 59.9 % (47-70); Platelet Count 206 K/mm3 (150-450); RBC Distribution Width CV 14.2 % (11.6-14.6); RBC Distribution Width SD 42.3 fl (35.1-43.9); Red Blood Count 4.68 M/mm3 (4.2-5.4)
[2023-11-13 12:41] LABS: Vitamin D,25 Hydroxy 80.4 ng/mL
[2023-11-13 12:48] LABS: ALB/GLOB Ratio 1.2 RATIO (0.9-2.4); AST(SGOT) 14 U/L (15-37); Alanine Aminotransfer ALT/SGPT 19 U/L (13-56); Albumin, Serum 3.8 g/dL (3.2-5.0); Alkaline Phosphatase 72 U/L (45-117); Anion Gap 5 (5-15); BUN 18 mg/dL (7-18); BUN/Creat Ratio 14.3 RATIO (10-20); Calcium,Total 9.6 mg/dL (8.5-10.1); Chloride 106 mmol/L (98-107); Creatinine, Serum 1.26 mg/dL (0.55-1.02); EST Glomerular Filtration Rate 45 mL/min (>60); Est Glom Filt Rate - Afr Amer 54 mL/min (>60); Globulin 3.3 g/dL (2.2-4.2); Glucose 94 mg/dL (74-106); Potassium 4.2 mmol/L (3.5-5.1); Protein, Total 7.1 g/dL (6.4-8.2); Sodium Level 141 mmol/L (136-145); Thyroid Stim Hormone (TSH) 2.38 uIU/mL (0.358-3.74)
== END | disposition home or self-care (01) ==
LOC: POLAB3 11:44
PROVIDERS: PCP Family Medicine Geriatric Medicine; Visit Provider Family Medicine Geriatric Medicine
DX: I10 Essential (primary) hypertension (principal); E55.9 Vitamin D deficiency, unspecified
CPT/HCPCS: 36415; 80053; 82306; 84443; 85025

== ENCOUNTER → 2023-12-26 | Outpatient (CLI) | payer MEDICARE, SELFPAY ==
[2023-12-26 11:26] LABS: Albumin, Serum 3.7 g/dL (3.2-5.0); BUN 17 mg/dL (7-18); Calcium,Total 9.7 mg/dL (8.5-10.1); Chloride 107 mmol/L (98-107); Creatinine, Serum 1.21 mg/dL (0.55-1.02); EST Glomerular Filtration Rate 47 mL/min (>60); Est Glom Filt Rate - Afr Amer 57 mL/min (>60); Glucose 98 mg/dL (74-106); Potassium 4.2 mmol/L (3.5-5.1); Sodium Level 139 mmol/L (136-145)
[2023-12-26 11:29] LABS: Protein, Urine (Random) 61.4 mg/dL (<11.9); Protein:Creat Ratio 229 mg/g CRE (0-200)
== END | disposition home or self-care (01) ==
LOC: POLAB3 10:16
PROVIDERS: PCP Family Medicine Geriatric Medicine; Visit Provider Family Medicine Geriatric Medicine
DX: N18.31 Chronic kidney disease, stage 3a (principal); N17.9 Acute kidney failure, unspecified
CPT/HCPCS: 36415; 80069; 82570; 84156

== ENCOUNTER → 2024-01-03 | Outpatient (CLI) | payer MEDICARE, SELFPAY ==
--- NOTE | 2024-01-03 16:48 | US_ITS ---
STUDY: RENAL ULTRASOUND - COMPLETE REASON FOR EXAM: Female, 68 years old. ACUTE KIDNEY FAILURE TECHNIQUE: Ultrasound evaluation of the kidneys was performed with real-time and static patotn-scale imaging. COMPARISON: None. FINDINGS: RIGHT KIDNEY: Normal location of the right kidney, which is normal in size. The right kidney measures 10.0 x 4.8 x 4.6 cm. There is a normal cortex of the right kidney. The renal cortex measures 1.8 cm. There is a 2.5 cm exophytic cyst. There are no right renal calculi. There is no right hydronephrosis. DISTAL RIGHT URETER: There is non-visualization of the distal right ureter. There is no demonstrated right ureterovesical junction calculus. There is a visualized right ureteral jet. LEFT KIDNEY: Normal location, with moderate renal atrophy. The left kidney measures 8.8 x 4.7 x 3.7 cm. There is a normal cortex of the left kidney. The renal cortex measures 1.3 cm. Possible 5 mm nonobstructing renal stones. There are no left renal calculi. There is no left hydronephrosis. DISTAL LEFT URETER: There is non-visualization of the distal left ureter. There is no demonstrated left ureterovesical junction calculus. There is a visualized left ureteral jet. BLADDER: The distended urinary bladder has a volume of 190 ml. The empty urinary bladder has a volume of 6 ml. There is a normal wall thickness of the distended urinary bladder. There is no demonstrated mass within the urinary bladder. There are no demonstrated bladder calculi. US/Kidney and Bladder IMPRESSION: Small left kidney consistent with unilateral atrophy. Probable nonobstructing left renal stone. No other definite acute or significant abnormality seen. Electronically Signed: Benjamin Wolf MD at 18:31 EDT ,
== END | disposition home or self-care (01) ==
LOC: US 16:46
PROVIDERS: PCP Family Medicine Geriatric Medicine; Referring Provider Internal Medicine Nephrology; Visit Provider Internal Medicine Nephrology
DX: N17.9 Acute kidney failure, unspecified (principal)
CPT/HCPCS: 76770

== ENCOUNTER 2024-01-26 09:44 | Emergency (ER) | payer MEDICARE, SELFPAY ==
[2024-01-26 09:45] VITALS: BP 131/108; PULSE 98; RESP 18; TEMP 35.9; O2SAT 100; BMI 27.1
[2024-01-26 09:48] VITALS: BP 131/108; PULSE 92; RESP 18; TEMP 35.9; O2SAT 100
--- NOTE | 2024-01-26 10:31 | EDS_ITS ---
HPI History of Present Illness Chief Complaint: Bite Informant: patient Onset/Context/Timing Onset: Days Context: Gradual Onset Narrative Narrative: Patient presents secondary to cat bite to her left forearm. She states that her pet cat who is roughly 13 years old bit her on the left forearm last January 19. Over the past 6 days she has had increasing redness and swelling around the site. No fever or chills. [facility] Medical History (Updated 01/26/24 @ 12:[address] Marcella Griffin MD) Abnormal ultrasound of breast Anemia Ankle sprain Arthritis Asthma Back pain Breast cancer Breast pain, right Bronchitis Chronic constipation Chronic cough Degenerative joint disease Depression Disc degeneration Emphysema lung Encounter for screening for malignant neoplasm of lung Encounter for screening for malignant neoplasm of lung in current smoker with 30 pack year history or greater Foot fracture GERD (gastroesophageal reflux disease) Hemorrhoids High cholesterol Hoarseness Hypertension Hypertension Invasive ductal carcinoma of right breast Iron deficiency anemia due to chronic blood loss Osteopenia Post-menopausal Sciatic leg pain Shortness of breath on exertion Smoking greater than 30 pack years SOB (shortness of breath) Tobacco use disorder, continuous Unspecified chronic bronchitis Wears dentures Home Medications atorvastatin 20 mg tablet (Lipitor) 20 mg PO QHS 06/08/20 [History Last Taken 07/03/21] albuterol sulfate 90 mcg/actuation aerosol inhaler 2 puff inhalation Q4H PRN shortness of breath or wheezing #1 device 06/23/20 [Rx Last Taken 07/04/21] amlodipine 2.5 mg tablet 5 mg PO DAILY 06/20/21 [History Last Taken 07/04/21] anastrozole 1 mg tablet 1 mg PO DAILY #90 tabs 04/02/23 [Rx Last Taken Unknown] pravastatin 40 mg tablet 40 mg PO DAILY 05/14/23 [History Last Taken Unknown] budesonide 160 mcg-glycopyr 9 mcg-formot 4.8 mcg/actuation HFA inhaler (Breztri Aerosphere) 2 inh inhalation BID 12/06/23 [History Last Taken Unknown] calcium acetate 667 mg tablet 667 mg PO ONCE 12/06/23 [History Last Taken Unknown] cholecalciferol (vitamin D3) 125 mcg (5,000 unit) capsule 125 mcg PO DAILY 12/06/23 [History Last Taken Unknown] magnesium 250 mg tablet 250 mg PO DAILY 12/06/23 [History Last Taken Unknown] mecobalamin (vitamin B12) 2,500 mcg chewable tablet mcg PO 12/06/23 [History Last Taken Unknown] zinc gluconate 50 mg tablet 50 mg PO DAILY 12/06/23 [History Last Taken Unknown] doxycycline monohydrate 100 mg capsule 100 mg PO BID #20 CAPSULES 01/26/24 [Rx Last Taken Unknown] Allergy/AdvReac Type Severity Reaction Status Date / Time latex AdvReac Intermediate rash Verified 01/26/24 09:45 Penicillins AdvReac Intermediate Rash Verified 01/26/24 09:45 Family History Mother Diabetes Hypertension Gastric ulcer Hyperlipidemia CVA (cerebral vascular accident) Father Diabetes COPD (chronic obstructive pulmonary disease) Hypertension Prostate cancer Aunt Breast cancer Surgical History H/O tubal ligation History of neck surgery History of tonsillectomy and adenoidectomy Hx of colonoscopy (~2019) Status post right breast lumpectomy Social History Smoking Status: Current every day smoker tobacco type: cigarettes Tobacco: How many years used: 45 how long ago did patient quit smoking: down to only smoking 4 cigarettes/day second hand exposure: Yes alcohol intake: current alcohol intake frequency: holidays/special occasions only substance use type: marijuana caffeine: Yes what type of physical activity do you participate in: none frequency: does not exercise laine/christianity: None seatbelt use: always do you feel safe at home: Yes ROS ROS ED Constitutional Constitutional ED: Denies chills or fever(s) Eyes Eyes: Denies discharge from eye(s) ENT ENT ED: Denies discharge from eye(s), rhinorrhea or sore throat Cardiovascular Cardiovascular: Denies chest pain or palpitations Respiratory/Chest Respiratory/Chest: Denies cough or dyspnea Gastrointestinal Gastrointestinal: Denies abdominal pain, nausea or vomiting Genitourinary Genitourinary ED: Denies dysuria Musculoskeletal Musculoskeletal: Reports extremity pain; Denies back pain Integumentary Reports rash; Denies Abrasions Neurologic Neurologic: Denies headache(s) or weakness Psychiatric Psychiatric: Denies anxiety or depression Allergic/Immunologic Allergic/Immunologic ED: Denies lip swelling or urticaria EXAM Physical Exam Const Vital Signs: 01/26/24 09:45 01/26/24 09:48 01/26/24 11:44 Temperature 96.6 F L 96.6 F L 97 F L Temperature Source Temporal Temporal Temporal Pulse Rate 98 92 76 Respiratory Rate 18 18 18 Blood Pressure 131/108 H 131/108 H 136/69 H Blood Pressure Mean 115 115 91 Pulse Ox 100 100 94 Oxygen Delivery Method Room Air Room Air Room Air 01/26/24 12:28 Temperature 97 F L Temperature Source Pulse Rate 74 Respiratory Rate 18 Blood Pressure 136/69 H Blood Pressure Mean 91 Pulse Ox 97 Oxygen Delivery Method Positive well nourished and well developed General Appearance ED: well developed HEENT Reports moist mucous membranes Eyes EOMs intact bilaterally Chest Wall inspection of chest normal and palpation of chest normal Resp normal respiratory effort and clear to auscultation bilaterally Cardio regular rate and regular rhythm GI non-tender Palpation: soft Extremity Extremity Narrative: Area of cellulitis over the extensor portion of the patient's left forearm. Area of erythema measures approximately 7 x 9 cm. There is no fluctuance noted. Patient is able to fully flex and extend at the wrist and elbow. Neuro oriented x3 and no sensory deficits noted Motor Exam: strength 5/5 throughout Psych mental status grossly normal MDM MDM MDM Narrative Medical decision making narrative: IV line established. Labwork obtained to evaluate for leukocytosis, anemia, and electrolyte derangement. X-ray of the left forearm obtained to evaluate for any radiopaque foreign body. Patient given a dose of clindamycin and Cipro here. Blood cultures also obtained. History & Record Review Discussion w/independent historian: Patient Additional record(s) reviewed:: Prior labs Lab Data Attestation: I reviewed the patient's lab results. Labs: Laboratory Results - last 24 hr 01/26/24 10:26 WBC 8.6 RBC 4.14 L Hgb 10.3 L Hct 32.5 L MCV 78.5 L MCH 24.9 L MCHC 31.7 L RDW Std Deviation 43.3 RDW Coeff of Marisol 15.2 H Plt Count 169 MPV 10.7 Immature Gran % (Auto) 0.500 Neut % (Auto) 80.1 H Lymph % (Auto) 11.3 L [place] % (Auto) 8.0 Eos % (Auto) 0.0 Baso % (Auto) 0.1 Absolute Neuts (auto) 6.9 Absolute Lymphs (auto) 0.97 Nucleated RBC % 0 Sodium 137 Potassium 3.5 Chloride 105 Carbon Dioxide 27.0 BUN 16 Creatinine 1.05 H Estim Creat Clear Calc 46.07 Est GFR (MDRD) Af Amer 67 Est GFR (MDRD) Non-Af 55 L BUN/Creatinine Ratio 15.2 Glucose 108 H Calcium 9.0 Phosphorus 2.0 L Albumin 3.4 Radiography Diagnostic Testing: Clinical Impression(s) from Imaging Studies Forearm X-Ray 01/26/24 10:43 IMPRESSION: No demonstrated acute osseous changes. Soft tissue swelling. Electronically Signed: Aryan Alatorre MD at 11:49 EDT , Treatment and Re-Evaluation :: CBC was a white count of 8.6 with 80% neutrophils. Hemoglobin is 10.3. Chemistry studies reveal a BUN of 16 and a creatinine 1.05 which is slightly improved when compared to her prior values. Left forearm x-ray per my interpretation reveals no obvious radiopaque foreign body with some soft tissue swelling. Radiology interpretation reviewed and agrees. Patient has received IV Cipro and clindamycin here. Area of erythema on her forearm is outlined with surgical marker. She will be started on doxycycline and return instructions provided. Patient comfortable with the plan. Discharge Plan Triage Chief Complaint: Bite ED Provider: Marcella Griffin Dx/Rx/DC Orders Clinical Impression: Cellulitis, Cat bite Instructions: ED Cat Bite, ED Cellulitis Prescriptions: New doxycycline monohydrate 100 mg capsule 100 mg PO BID Qty: 20 0RF No Action atorvastatin [Lipitor] 20 mg tablet 20 mg PO QHS albuterol sulfate 90 mcg/actuation HFA aerosol inhaler 2 puff INHALATION Q4H PRN (Reason: shortness of breath or wheezing) Qty: 1 6RF Rx Instructions: administer with spacer amlodipine 2.5 mg tablet 5 mg PO DAILY pravastatin 40 mg tablet 40 mg PO DAILY Patient Comments: TAKE 1 TABLET BY MOUTH EVERY DAY AT BEDTIME zinc gluconate 50 mg tablet 50 mg PO DAILY magnesium 250 mg tablet 250 mg PO DAILY cholecalciferol (vitamin D3) 125 mcg (5,000 unit) capsule 125 mcg PO DAILY calcium acetate 667 mg tablet 667 mg PO ONCE Breztri Aerosphere 160-9-4.8 mcg/actuation HFA aerosol inhaler 2 inh inhalation BID mecobalamin (vitamin B12) 2,500 mcg tablet,chewable PO anastrozole 1 mg tablet 1 mg PO DAILY Qty: 90 1RF Primary Care Provider: Tani Grey Chi Referrals: Tani Grey Chi, MD [Primary Care Provider] - 1 Week Disposition Disposition: Home, Self Care
[2024-01-26 10:35] LABS: Absolute Lymphocyte Count 0.97 X10^3/uL (0.83-4.51); Absolute Neutrophil Count 6.9 X10^3/uL (2.0-7.7); Basophil# 0.01 X10^3/uL; Basophil% 0.1 % (0-1); Hematocrit 32.5 % (37-47); Hemoglobin 10.3 g/dL (12.0-15.0); Lymphocyte # 0.97 X10^3/ul (0.83-4.51); Lymphocyte % 11.3 % (19-41); Mean Corp Hgb Conc 31.7 g/dL (32-36); Mean Corpuscular Hgb 24.9 pg (27.0-32.0); Mean Corpuscular Volume 78.5 fL (81-99); Mean Platelet Vol. 10.7 fl (6.2-12.0); Monocyte# 0.69 X10^3/uL; NRBC Flagged by Analyzer 0 % (0-5); Neutrophil # 6.89 X10^3/uL (2.7-7.7); Neutrophil % 80.1 % (47-70); Platelet Count 169 K/mm3 (150-450); RBC Distribution Width CV 15.2 % (11.6-14.6); RBC Distribution Width SD 43.3 fl (35.1-43.9); Red Blood Count 4.14 M/mm3 (4.2-5.4); White Blood Count 8.6 K/mm3 (4.4-11.0)
[2024-01-26] MEDS: Clindamycin 600 MG/50 ML BAG 100 MG IV (10:36)
--- NOTE | 2024-01-26 10:43 | RAD_ITS ---
INDICATION: bite wound EXAMINATION/TECHNIQUE: X-RAY - LEFT XR Forearm 2 Views 2 VIEWS COMPARISON: No relevant prior comparison study available FINDINGS: SOFT TISSUES: Soft tissue swelling. No radiopaque foreign body. BONES/JOINTS: No acute fracture or subluxation.. Normal alignment. Preservation of the joint space.. No sclerotic or destructive changes observed. RAD/Forearm 2 Views IMPRESSION: No demonstrated acute osseous changes. Soft tissue swelling. Electronically Signed: Aryan Alatorre MD at 11:49 EDT ,
[2024-01-26 10:48] LABS: Albumin, Serum 3.4 g/dL (3.2-5.0); BUN 16 mg/dL (7-18); BUN/Creat Ratio 15.2 RATIO (10-20); Chloride 105 mmol/L (98-107); Creatinine, Serum 1.05 mg/dL (0.55-1.02); EST Glomerular Filtration Rate 55 mL/min (>60); Est Glom Filt Rate - Afr Amer 67 mL/min (>60); Estimated Creatinine Clearance 46.07 ml/min; Glucose 108 mg/dL (74-106); Potassium 3.5 mmol/L (3.5-5.1); Sodium Level 137 mmol/L (136-145)
[2024-01-26] MEDS: Ciprofloxacin 400 MG/200 ML BAG 200 MG IV (10:56)
[2024-01-26 11:44] VITALS: BP 136/69; PULSE 76; RESP 18; TEMP 36.1; O2SAT 94
[2024-01-26 12:28] VITALS: BP 136/69; PULSE 74; RESP 18; TEMP 36.1; O2SAT 97
== END 2024-01-26 12:40 | disposition home or self-care (01) ==
PROVIDERS: Emergency Provider Emergency Medicine; PCP Family Medicine Geriatric Medicine; Visit Provider Emergency Medicine
DX: L03.114 Cellulitis of left upper limb (principal); J43.9 Emphysema, unspecified; S51.852A Open bite of left forearm, initial encounter; W55.01XA Bitten by cat, initial encounter; I10 Essential (primary) hypertension; E78.00 Pure hypercholesterolemia, unspecified; J45.909 Unspecified asthma, uncomplicated; F17.210 Nicotine dependence, cigarettes, uncomplicated; Z79.899 Other long term (current) drug therapy
CPT/HCPCS: 73090; 80069; 85025; 87040; 96365; 96367; 99283; J0744

== ENCOUNTER 2024-01-27 08:06 | Emergency (ER) | payer MEDICARE, SELFPAY ==
[2024-01-27 08:07] VITALS: BP 162/137; PULSE 99; RESP 18; TEMP 36.4; O2SAT 96; BMI 26.7
--- NOTE | 2024-01-27 08:37 | EDS_ITS ---
HPI History of Present Illness Chief Complaint: Bite Narrative Narrative: 68-year-old female presenting with wound to the left forearm. She states she was bitten by a cat a week ago today. It was her own cat's if she states it has had all its shots. She was seen yesterday and reports she was given IV antibiotics and a line was drawn around the wound and she went home but did not get her prescription medications filled because the pharmacy was closed and she came back today due to worsening pain, feeling unwell, spreading of redness on the left forearm. She has not had a fever. She is not vomiting ROS [facility] ED Constitutional Constitutional ED: Denies chills, fever(s) or sweats Eyes Eyes: Denies blurry vision or change in vision ENT ENT ED: Denies ear pain or sore throat Cardiovascular Cardiovascular: Denies chest pain, palpitations or racing heartbeat Respiratory/Chest Respiratory/Chest: Denies cough, dyspnea or sputum Gastrointestinal Gastrointestinal: Denies abdominal pain, constipation, diarrhea, nausea or vomiting Genitourinary Genitourinary ED: Denies dysuria, hematuria or urinary frequency Musculoskeletal Musculoskeletal: Reports other Details: Left forearm pain ; Denies arthralgias, myalgias or neck pain Integumentary Reports rash; Denies abscess or Abrasions Neurologic Neurologic: Reports headache(s); Denies paresthesias or weakness Psychiatric Psychiatric: Denies anxiety, depression, suicidal ideation or suicidal thoughts Endocrine Endocrinology: Denies polydipsia or polyuria [facility] Medical History (Updated 01/26/24 @ 12:[address] Marcella Griffin MD) Abnormal ultrasound of breast Anemia Ankle sprain Arthritis Asthma Back pain Breast cancer Breast pain, right Bronchitis Chronic constipation Chronic cough Degenerative joint disease Depression Disc degeneration Emphysema lung Encounter for screening for malignant neoplasm of lung Encounter for screening for malignant neoplasm of lung in current smoker with 30 pack year history or greater Foot fracture GERD (gastroesophageal reflux disease) Hemorrhoids High cholesterol Hoarseness Hypertension Hypertension Invasive ductal carcinoma of right breast Iron deficiency anemia due to chronic blood loss Osteopenia Post-menopausal Sciatic leg pain Shortness of breath on exertion Smoking greater than 30 pack years SOB (shortness of breath) Tobacco use disorder, continuous Unspecified chronic bronchitis Wears dentures Home Medications atorvastatin 20 mg tablet (Lipitor) 20 mg PO QHS 06/08/20 [History Last Taken 07/03/21] albuterol sulfate 90 mcg/actuation aerosol inhaler 2 puff inhalation Q4H PRN shortness of breath or wheezing #1 device 06/23/20 [Rx Last Taken 07/04/21] amlodipine 2.5 mg tablet 5 mg PO DAILY 06/20/21 [History Last Taken 07/04/21] anastrozole 1 mg tablet 1 mg PO DAILY #90 tabs 04/02/23 [Rx Last Taken Unknown] pravastatin 40 mg tablet 40 mg PO DAILY 05/14/23 [History Last Taken Unknown] budesonide 160 mcg-glycopyr 9 mcg-formot 4.8 mcg/actuation HFA inhaler (Breztri Aerosphere) 2 inh inhalation BID 12/06/23 [History Last Taken Unknown] calcium acetate 667 mg tablet 667 mg PO ONCE 12/06/23 [History Last Taken Unknown] cholecalciferol (vitamin D3) 125 mcg (5,000 unit) capsule 125 mcg PO DAILY 12/06/23 [History Last Taken Unknown] magnesium 250 mg tablet 250 mg PO DAILY 12/06/23 [History Last Taken Unknown] mecobalamin (vitamin B12) 2,500 mcg chewable tablet mcg PO 12/06/23 [History Last Taken Unknown] zinc gluconate 50 mg tablet 50 mg PO DAILY 12/06/23 [History Last Taken Unknown] doxycycline monohydrate 100 mg capsule 100 mg PO BID #20 CAPSULES 01/26/24 [Rx Last Taken Unknown] clindamycin HCl 300 mg capsule 300 mg PO Q8H 10 days #30 caps 01/27/24 [Rx Last Taken Unknown] Allergy/AdvReac Type Severity Reaction Status Date / Time latex AdvReac Intermediate rash Verified 01/27/24 08:06 Penicillins AdvReac Intermediate Rash Verified 01/27/24 08:06 Family History Mother Diabetes Hypertension Gastric ulcer Hyperlipidemia CVA (cerebral vascular accident) Father Diabetes COPD (chronic obstructive pulmonary disease) Hypertension Prostate cancer Aunt Breast cancer Surgical History H/O tubal ligation History of neck surgery History of tonsillectomy and adenoidectomy Hx of colonoscopy (~2019) Status post right breast lumpectomy Social History Smoking Status: Current every day smoker tobacco type: cigarettes Tobacco: How many years used: 45 how long ago did patient quit smoking: down to only smoking 4 cigarettes/day second hand exposure: Yes alcohol intake: current alcohol intake frequency: holidays/special occasions only substance use type: marijuana caffeine: Yes what type of physical activity do you participate in: none frequency: does not exercise laine/mu-ism: None seatbelt use: always do you feel safe at home: Yes EXAM Physical Exam Const Vital Signs: 01/27/24 08:07 01/27/24 09:10 01/27/24 10:00 Temperature 97.5 F L 98.0 F 97.5 F L Temperature Source Temporal Temporal Temporal Pulse Rate 99 73 79 Respiratory Rate 18 17 17 Blood Pressure 162/137 H 165/69 H 181/76 H Blood Pressure Mean 145 101 111 Pulse Ox 96 98 97 Oxygen Delivery Method Room Air Room Air Room Air 01/27/24 11:00 Temperature 98.2 F Temperature Source Temporal Pulse Rate 88 Respiratory Rate 17 Blood Pressure 183/68 H Blood Pressure Mean 106 Pulse Ox 98 Oxygen Delivery Method Room Air Positive well nourished General Appearance ED: NAD HEENT Reports moist mucous membranes normocephalic Eyes PERRL and EOMs intact bilaterally Resp normal respiratory effort Cardio regular rate and regular rhythm Neuro oriented x3 Sensorium / Orientation: alert Skin Skin Narrative: Left forearm: 7 x 9 cm measured area with drawn border with surrounding erythema outside of the margins on the dorsal surface. There is tenderness and warmth over this area as well as the outside of the margins. This has appeared to spread both laterally, distally approximately since yesterday. Neurovascular intact. Prescribed refill all 5 fingers. MDM MDM MDM Narrative Medical decision making narrative: Patient presenting with cat bite to the left forearm which is peers to getting worse since yesterday. Will obtain blood work including CBC to assess white blood cell count, hemoglobin, platelets. BMP to assess renal function electrolytes. Will obtain x-ray of the left forearm as well. CBC shows normal white blood cell count 8.1. Hemoglobin 10.7 and within normal limits for her. Renal function electrolytes are normal. X-ray concerning for possible gas or recent instrumentation as patient had IV in her arm yesterday and she cannot have an IV in her right arm due to dissection of lymph nodes. This is a possible source for air. Discussed with orthopedics (Dr. Whitehead) and we determined we will get a CT scan of the upper extremity and it does appear to be there is some gas but is also related most likely to the IV as the wound is on the dorsal surface and the gas volar but the IV was placed. He came in to evaluate her and she does not have significant pain or crepitus and he recommended discharging home on Cipro and clindamycin. She was given the first doses in the ER earlier. Return precautions were discussed with her. She is can follow-up with him in later this week. Impression: 1. Cat bite left forearm Lab Data Attestation: I reviewed the patient's lab results. Labs: Laboratory Results - last 24 hr 01/27/24 09:14 WBC 8.1 RBC 4.36 Hgb 10.7 L Hct 33.9 L MCV 77.8 L MCH 24.5 L MCHC 31.6 L RDW Std Deviation 42.5 RDW Coeff of Marisol 15.1 H Plt Count 176 MPV 10.5 Immature Gran % (Auto) 0.200 Neut % (Auto) 81.1 H Lymph % (Auto) 10.4 L [place] % (Auto) 8.0 Eos % (Auto) 0.1 Baso % (Auto) 0.2 Absolute Neuts (auto) 6.6 Absolute Lymphs (auto) 0.84 Nucleated RBC % 0 Sodium 136 Potassium 3.5 Chloride 106 Carbon Dioxide 23.0 Anion Gap 7 BUN 16 Creatinine 0.98 Estim Creat Clear Calc 47.77 Est GFR (MDRD) Af Amer 72 Est GFR (MDRD) Non-Af 60 BUN/Creatinine Ratio 16.3 Glucose 111 H Calcium 9.2 Radiography Diagnostic Testing: Clinical Impression(s) from Imaging Studies Forearm X-Ray 01/27/24 08:42 IMPRESSION: Soft tissue swelling. Indeterminant radiolucencies projecting over the soft tissues within the proximal ventral forearm, may be secondary to recent instrumentation or trauma, cannot exclude a gas producing organism. Electronically Signed: Kristel Myers MD at 9:52 EDT , Upper Extremity CT 01/27/24 10:11 IMPRESSION: Cellulitis of the left forearm without abscess or osteomyelitis. Mild air in the soft tissues of the antecubital fossa extending to the proximal forearm, which may be related to recent instrumentation, penetrating trauma, or infection. Electronically Signed: Dinah Harvey MD at 11:31 EDT , Discharge Plan Triage Chief Complaint: Bite ED Provider: Isauro Kebede Dx/Rx/DC Orders Instructions: ED Cat Bite Prescriptions: New clindamycin HCl 300 mg capsule 300 mg PO Q8H 10 Days Qty: 30 0RF No Action atorvastatin [Lipitor] 20 mg tablet 20 mg PO QHS albuterol sulfate 90 mcg/actuation HFA aerosol inhaler 2 puff INHALATION Q4H PRN (Reason: shortness of breath or wheezing) Qty: 1 6RF Rx Instructions: administer with spacer amlodipine 2.5 mg tablet 5 mg PO DAILY pravastatin 40 mg tablet 40 mg PO DAILY Patient Comments: TAKE 1 TABLET BY MOUTH EVERY DAY AT BEDTIME zinc gluconate 50 mg tablet 50 mg PO DAILY magnesium 250 mg tablet 250 mg PO DAILY cholecalciferol (vitamin D3) 125 mcg (5,000 unit) capsule 125 mcg PO DAILY calcium acetate 667 mg tablet 667 mg PO ONCE Breztri Aerosphere 160-9-4.8 mcg/actuation HFA aerosol inhaler 2 inh inhalation BID mecobalamin (vitamin B12) 2,500 mcg tablet,chewable PO doxycycline monohydrate 100 mg capsule 100 mg PO BID Qty: 20 0RF anastrozole 1 mg tablet 1 mg PO DAILY Qty: 90 1RF Primary Care Provider: Tani Grey Chi Referrals: Tani Grey Chi, MD [Primary Care Provider] - Disposition Disposition: Home, Self Care
--- NOTE | 2024-01-27 08:42 | RAD_ITS ---
INDICATION: pain EXAMINATION/TECHNIQUE: X-RAY - LEFT XR Forearm 2 Views 2 VIEWS COMPARISON: January 26, 2024 FINDINGS: SOFT TISSUES: There is soft tissue swelling throughout the mid forearm. There are subcutaneous radiolucencies projecting over the proximal ventral forearm. There is an IV in place within the ventral forearm. BONES/JOINTS: No acute fracture or subluxation.. Normal alignment. Preservation of the joint space.. No sclerotic or destructive changes observed. RAD/Forearm 2 Views IMPRESSION: Soft tissue swelling. Indeterminant radiolucencies projecting over the soft tissues within the proximal ventral forearm, may be secondary to recent instrumentation or trauma, cannot exclude a gas producing organism. Electronically Signed: Kristel Myers MD at 9:52 EDT ,
[2024-01-27 09:10] VITALS: BP 165/69; PULSE 73; RESP 17; TEMP 36.7; O2SAT 98
[2024-01-27] MEDS: Morphine 4 MG/ML Syringe IV (09:19)
[2024-01-27] MEDS: Ondansetron 4 MG/2 ML Vial IV (09:19)
[2024-01-27 09:20] LABS: Absolute Lymphocyte Count 0.84 X10^3/uL (0.83-4.51); Absolute Neutrophil Count 6.6 X10^3/uL (2.0-7.7); Basophil# 0.02 X10^3/uL; Basophil% 0.2 % (0-1); Eosinophil# 0.01 X10^3/uL; Eosinophils% 0.1 % (0-5); Hematocrit 33.9 % (37-47); Hemoglobin 10.7 g/dL (12.0-15.0); Lymphocyte # 0.84 X10^3/ul (0.83-4.51); Lymphocyte % 10.4 % (19-41); Mean Corp Hgb Conc 31.6 g/dL (32-36); Mean Corpuscular Hgb 24.5 pg (27.0-32.0); Mean Corpuscular Volume 77.8 fL (81-99); Mean Platelet Vol. 10.5 fl (6.2-12.0); Monocyte# 0.65 X10^3/uL; NRBC Flagged by Analyzer 0 % (0-5); Neutrophil # 6.56 X10^3/uL (2.7-7.7); Neutrophil % 81.1 % (47-70); Platelet Count 176 K/mm3 (150-450); RBC Distribution Width CV 15.1 % (11.6-14.6); RBC Distribution Width SD 42.5 fl (35.1-43.9); Red Blood Count 4.36 M/mm3 (4.2-5.4); White Blood Count 8.1 K/mm3 (4.4-11.0)
[2024-01-27 09:33] LABS: Anion Gap 7 (5-15); BUN 16 mg/dL (7-18); BUN/Creat Ratio 16.3 RATIO (10-20); Calcium,Total 9.2 mg/dL (8.5-10.1); Chloride 106 mmol/L (98-107); Creatinine, Serum 0.98 mg/dL (0.55-1.02); EST Glomerular Filtration Rate 60 mL/min (>60); Est Glom Filt Rate - Afr Amer 72 mL/min (>60); Estimated Creatinine Clearance 47.77 ml/min; Glucose 111 mg/dL (74-106); Potassium 3.5 mmol/L (3.5-5.1); Sodium Level 136 mmol/L (136-145)
[2024-01-27] MEDS: 0.9% Normal Saline (1000mL) 1,000 ML 1000 ML IV (09:58)
[2024-01-27 10:00] VITALS: BP 181/76; PULSE 79; RESP 17; TEMP 36.4; O2SAT 97
--- NOTE | 2024-01-27 10:07 | ED.RN ---
Dr Whitehead called for Dr Kebede.
--- NOTE | 2024-01-27 10:11 | CT_ITS ---
HISTORY: cat bite. TECHNIQUE: Helically acquired images were obtained of the left forearm after the intravenous administration of 100 mL Isovue-370. 2-D reformats were performed by the technologist. A radiation dose optimization technique was used for this scan. 406 images. COMPARISON: XR same day. FINDINGS: BONES: No acute fracture or cortical erosion identified. JOINT SPACES: No dislocation. Mild degenerative change. SOFT TISSUES: Mild peripheral vascular disease with arterial calcification. Superficial intravenous catheter at the antecubital fossa. Moderate subcutaneous edema with skin thickening and mild intramuscular edema extending from the elbow to the mid to distal forearm. Mild air and ill-defined fluid in the subcutaneous soft tissues from the antecubital fossa to proximal forearm. No rim-enhancing fluid collection. CT/Extremity Upper WITH Contrast IMPRESSION: Cellulitis of the left forearm without abscess or osteomyelitis. Mild air in the soft tissues of the antecubital fossa extending to the proximal forearm, which may be related to recent instrumentation, penetrating trauma, or infection. Electronically Signed: Dinah Harvey MD at 11:31 EDT ,
[2024-01-27 11:00] VITALS: BP 183/68; PULSE 88; RESP 17; TEMP 36.8; O2SAT 98
[2024-01-27] MEDS: Clindamycin 600 MG/50 ML BAG 100 MG IV (11:04)
--- NOTE | 2024-01-27 12:07 | CONS.ORTHO ---
HPI Consult Data Date of Consult: 01/27/24 HPI Narrative Reason for Consultation: Left forearm Cat bite HPI Narrative: MATY SHEN, is a 68 F who presents to [facility] emergency department initially yesterday due to redness, pain and swelling in her left forearm secondary to a cat bite approximately 1 week ago. She administered IV antibiotics and discharged on p.o. doxycycline yesterday. She was unable to fill the doxycycline prescription due to her pharmacy being closed. She returned to the emergency department today due to expanding margins on her skin marking around the cellulitis yesterday. Of note, patient had axillary node dissection in her right axilla and nursing staff placed and attempted multiple IVs in the last 24 hours in the left antecubital fossa and volar forearm. She states she has a headache, otherwise denies any feeling of illness. She denies fevers, chills, nausea or vomiting, chest pain or shortness of breath. She denies any numbness or tingling in the left upper extremity. [facility] Medical History (Updated 01/26/24 @ 12:[address] Marcella Griffin MD) Abnormal ultrasound of breast Anemia Ankle sprain Arthritis Asthma Back pain Breast cancer Breast pain, right Bronchitis Chronic constipation Chronic cough Degenerative joint disease Depression Disc degeneration Emphysema lung Encounter for screening for malignant neoplasm of lung Encounter for screening for malignant neoplasm of lung in current smoker with 30 pack year history or greater Foot fracture GERD (gastroesophageal reflux disease) Hemorrhoids High cholesterol Hoarseness Hypertension Hypertension Invasive ductal carcinoma of right breast Iron deficiency anemia due to chronic blood loss Osteopenia Post-menopausal Sciatic leg pain Shortness of breath on exertion Smoking greater than 30 pack years SOB (shortness of breath) Tobacco use disorder, continuous Unspecified chronic bronchitis Wears dentures Home Medications atorvastatin 20 mg tablet (Lipitor) 20 mg PO QHS 06/08/20 [History Last Taken 07/03/21] albuterol sulfate 90 mcg/actuation aerosol inhaler 2 puff inhalation Q4H PRN shortness of breath or wheezing #1 device 06/23/20 [Rx Last Taken 07/04/21] amlodipine 2.5 mg tablet 5 mg PO DAILY 06/20/21 [History Last Taken 07/04/21] anastrozole 1 mg tablet 1 mg PO DAILY #90 tabs 04/02/23 [Rx Last Taken Unknown] pravastatin 40 mg tablet 40 mg PO DAILY 05/14/23 [History Last Taken Unknown] budesonide 160 mcg-glycopyr 9 mcg-formot 4.8 mcg/actuation HFA inhaler (Breztri Aerosphere) 2 inh inhalation BID 12/06/23 [History Last Taken Unknown] calcium acetate 667 mg tablet 667 mg PO ONCE 12/06/23 [History Last Taken Unknown] cholecalciferol (vitamin D3) 125 mcg (5,000 unit) capsule 125 mcg PO DAILY 12/06/23 [History Last Taken Unknown] magnesium 250 mg tablet 250 mg PO DAILY 12/06/23 [History Last Taken Unknown] mecobalamin (vitamin B12) 2,500 mcg chewable tablet mcg PO 12/06/23 [History Last Taken Unknown] zinc gluconate 50 mg tablet 50 mg PO DAILY 12/06/23 [History Last Taken Unknown] doxycycline monohydrate 100 mg capsule 100 mg PO BID #20 CAPSULES 01/26/24 [Rx Last Taken Unknown] clindamycin HCl 300 mg capsule 300 mg PO Q8H 10 days #30 caps 01/27/24 [Rx Last Taken Unknown] hydrocodone-acetaminophen 5-325mg 5mg-325mg 1 tab PO Q6H PRN PRN Pain 3 days #12 TABLETS 01/27/24 [Rx Last Taken Unknown] Allergy/AdvReac Type Severity Reaction Status Date / Time latex AdvReac Intermediate rash Verified 01/27/24 08:06 Penicillins AdvReac Intermediate Rash Verified 01/27/24 08:06 Family History Mother Diabetes Hypertension Gastric ulcer Hyperlipidemia CVA (cerebral vascular accident) Father Diabetes COPD (chronic obstructive pulmonary disease) Hypertension Prostate cancer Aunt Breast cancer Surgical History H/O tubal ligation History of neck surgery History of tonsillectomy and adenoidectomy Hx of colonoscopy (~2019) Status post right breast lumpectomy Social History Smoking Status: Current every day smoker tobacco type: cigarettes Tobacco: How many years used: 45 how long ago did patient quit smoking: down to only smoking 4 cigarettes/day second hand exposure: Yes alcohol intake: current alcohol intake frequency: holidays/special occasions only substance use type: marijuana caffeine: Yes what type of physical activity do you participate in: none frequency: does not exercise laine/alevism: None seatbelt use: always do you feel safe at home: Yes ROS ROS Narrative 12 point review systems obtained, negative unless otherwise noted HPI. Vital Signs Vital Signs Vital Signs: 01/27/24 08:07 01/27/24 09:10 01/27/24 10:00 Temperature 97.5 F L 98.0 F 97.5 F L Temperature Source Temporal Temporal Temporal Pulse Rate 99 73 79 Respiratory Rate 18 17 17 Blood Pressure 162/137 H 165/69 H 181/76 H Blood Pressure Mean 145 101 111 Pulse Ox 96 98 97 Oxygen Delivery Method Room Air Room Air Room Air 01/27/24 11:00 Temperature 98.2 F Temperature Source Temporal Pulse Rate 88 Respiratory Rate 17 Blood Pressure 183/68 H Blood Pressure Mean 106 Pulse Ox 98 Oxygen Delivery Method Room Air Weight Weight: 145 lb 8 oz Body Mass Index (BMI) 26.7 Physical Exam Narrative General -A&Ox3, NAD, appears stated age. Vital signs stable, afebrile. Respiratory -normal work of breathing, no intercostal retractions. CV -pulses regular, brisk capillary refill ?4 limbs. Abdomen-soft, nontender, nondistended. No guarding, rigidity, rebound tenderness. Musculoskeletal/neurologic -full range of motion nontender throughout right upper extremity, bilateral lower extremities with full sensation and strength in all dermatomes and myotomes. No midline cervical tenderness. Left upper extremity-cellulitic rash noted mid dorsal forearm approximately 8 x 10 cm. This is mildly tender. There is no fluctuance, faint induration is suspected. Cardinal motions of the left hand are intact. Patient is able to actively flex and extend her wrist and reports mild pain. Sensation intact to light touch median/ulnar/radial nerve distributions of the left hand. Radial pulse 2+, brisk capillary refill in the fingertips. Nontender along the volar forearm, antecubital fossa/neurovascular bundle. There is no subcutaneous crepitus. Patient able to range her left elbow without discomfort. Lab / Micro Data 01/27/24 09:14 01/27/24 09:14 Labs: Laboratory Results - last 24 hr 01/27/24 09:14: WBC 8.1, RBC 4.36, Hgb 10.7 L, Hct 33.9 L, MCV 77.8 L, MCH 24.5 L, MCHC 31.6 L, RDW Std Deviation 42.5, RDW Coeff of Marisol 15.1 H, Plt Count 176, MPV 10.5, Immature Gran % (Auto) 0.200, Neut % (Auto) 81.1 H, Lymph % (Auto) 10.4 L, Citrus % (Auto) 8.0, Eos % (Auto) 0.1, Baso % (Auto) 0.2, Absolute Neuts (auto) 6.6, Absolute Lymphs (auto) 0.84, Nucleated RBC % 0, Sodium 136, Potassium 3.5, Chloride 106, Carbon Dioxide 23.0, Anion Gap 7, BUN 16, Creatinine 0.98, Estim Creat Clear Calc 47.77, Est GFR (MDRD) Af Amer 72, Est GFR (MDRD) Non-Af 60, BUN/Creatinine Ratio 16.3, Glucose 111 H, Calcium 9.2 Imaging Radiology Impression Forearm X-Ray 01/27/24 08:42 IMPRESSION: Soft tissue swelling. Indeterminant radiolucencies projecting over the soft tissues within the proximal ventral forearm, may be secondary to recent instrumentation or trauma, cannot exclude a gas producing organism. Electronically Signed: Kristel Myers MD at 9:52 EDT , Upper Extremity CT 01/27/24 10:11 IMPRESSION: Cellulitis of the left forearm without abscess or osteomyelitis. Mild air in the soft tissues of the antecubital fossa extending to the proximal forearm, which may be related to recent instrumentation, penetrating trauma, or infection. Electronically Signed: Dinah Harvey MD at 11:31 EDT , Assessment & Plan Assessment/Plan (1) Cat bite: PLAN: Patient seen and examined. CT scan was reviewed personally. There appears to be cellulitic changes in the area of concern. No obvious fluid collection is seen. There is subcutaneous gas tracking along the fascial plane in the antecubital fossa, however this is consistent with multiple IV sticks. Patient is hemodynamically stable. She has no white count. Due to her not filling her prescription yesterday, she has not failed outpatient therapy for cellulitis. I discussed the case with Dr. Kebede, ER physician. Given her lack of failure of outpatient therapy, I recommended a trial of oral antibiotics. Patient will be discharged on oral doxycycline and clindamycin due to her penicillin allergy. I recommended follow-up in the next 3 days in the outpatient setting with myself. Patient was educated on signs symptoms of sepsis as well as educated if redness is spreading well beyond the skin margins or she is developing new constitutional symptoms, she should return the emergency department immediately. Patient was administered IV doses of clindamycin and ciprofloxacin while she was in the emergency department today.
[2024-01-27 12:19] VITALS: BP 166/64; PULSE 80; RESP 16; TEMP 36.4; O2SAT 94
[2024-01-27] MEDS: Ciprofloxacin 400 MG/200 ML BAG 200 MG IV (12:30)
[2024-01-27 13:40] VITALS: BP 140/74; PULSE 70; RESP 16; TEMP 36.4; O2SAT 98
== END 2024-01-27 13:41 | disposition home or self-care (01) ==
PROVIDERS: Emergency Provider Student in an Organized Health Care Education/Training Program; PCP Family Medicine Geriatric Medicine; Visit Provider Student in an Organized Health Care Education/Training Program
DX: S51.852A Open bite of left forearm, initial encounter (principal); J43.9 Emphysema, unspecified; W55.01XA Bitten by cat, initial encounter; I10 Essential (primary) hypertension; E78.00 Pure hypercholesterolemia, unspecified; F17.210 Nicotine dependence, cigarettes, uncomplicated; Z79.811 Long term (current) use of aromatase inhibitors; Z79.899 Other long term (current) drug therapy
CPT/HCPCS: 73090; 73201; 80048; 85025; 96361; 96365; 96366; 96375; 99285; J7030; J7050; Q9967; A4216; J0744; J2405

== ENCOUNTER 2024-01-29 16:06 | Outpatient (CLI) | payer MEDICARE, SELFPAY ==
[2024-01-29 16:35] LABS: Absolute Lymphocyte Count 1.36 X10^3/uL (0.83-4.51); Absolute Neutrophil Count 3.5 X10^3/uL (2.0-7.7); Basophil# 0.02 X10^3/uL; Basophil% 0.4 % (0-1); Eosinophils% 1.9 % (0-5); Hemoglobin 10.6 g/dL (12.0-15.0); Lymphocyte # 1.36 X10^3/ul (0.83-4.51); Lymphocyte % 25.5 % (19-41); Mean Corp Hgb Conc 31.2 g/dL (32-36); Mean Corpuscular Hgb 24.2 pg (27.0-32.0); Mean Corpuscular Volume 77.6 fL (81-99); Mean Platelet Vol. 10.6 fl (6.2-12.0); Monocyte# 0.35 X10^3/uL; Monocyte% 6.6 % (0-10); NRBC Flagged by Analyzer 0 % (0-5); Neutrophil # 3.49 X10^3/uL (2.7-7.7); Neutrophil % 65.2 % (47-70); Platelet Count 231 K/mm3 (150-450); RBC Distribution Width CV 14.8 % (11.6-14.6); RBC Distribution Width SD 42.3 fl (35.1-43.9); Red Blood Count 4.38 M/mm3 (4.2-5.4); White Blood Count 5.3 K/mm3 (4.4-11.0)
[2024-01-29 17:10] LABS: Anion Gap 5 (5-15); BUN 19 mg/dL (7-18); BUN/Creat Ratio 14.7 RATIO (10-20); Calcium,Total 10.5 mg/dL (8.5-10.1); Chloride 103 mmol/L (98-107); Creatinine, Serum 1.29 mg/dL (0.55-1.02); EST Glomerular Filtration Rate 44 mL/min (>60); Est Glom Filt Rate - Afr Amer 53 mL/min (>60); Glucose 102 mg/dL (74-106); Potassium 3.1 mmol/L (3.5-5.1); Sodium Level 137 mmol/L (136-145)
[2024-01-30 09:39] LABS: Erythrocyte Sedimentation Rate 39 mm/hr (0-30)
== END 2024-01-29 23:59 | disposition home or self-care (01) ==
LOC: LAB 16:06
PROVIDERS: PCP Family Medicine Geriatric Medicine; Referring Provider Family Medicine Geriatric Medicine; Visit Provider Family Medicine Geriatric Medicine
DX: S51.852A Open bite of left forearm, initial encounter (principal); W55.01XA Bitten by cat, initial encounter; L03.114 Cellulitis of left upper limb
CPT/HCPCS: 36415; 80048; 85025; 85652; 86140

== ENCOUNTER → 2024-01-30 | Outpatient (CLI) | payer MEDICARE, SELFPAY ==
[2024-01-30 16:24] LABS: Absolute Lymphocyte Count 1.46 X10^3/uL (0.83-4.51); Absolute Neutrophil Count 3.6 X10^3/uL (2.0-7.7); Basophil# 0.03 X10^3/uL; Basophil% 0.5 % (0-1); Eosinophil# 0.09 X10^3/uL; Eosinophils% 1.6 % (0-5); Hematocrit 32.8 % (37-47); Hemoglobin 10.4 g/dL (12.0-15.0); Lymphocyte # 1.46 X10^3/ul (0.83-4.51); Lymphocyte % 26.5 % (19-41); Mean Corp Hgb Conc 31.7 g/dL (32-36); Mean Corpuscular Hgb 24.7 pg (27.0-32.0); Mean Corpuscular Volume 77.9 fL (81-99); Mean Platelet Vol. 10.7 fl (6.2-12.0); Monocyte# 0.34 X10^3/uL; Monocyte% 6.2 % (0-10); NRBC Flagged by Analyzer 0 % (0-5); Neutrophil # 3.57 X10^3/uL (2.7-7.7); Neutrophil % 64.8 % (47-70); POSITIVE MORPHOLOGY YES; Platelet Count 238 K/mm3 (150-450); RBC Distribution Width CV 15.1 % (11.6-14.6); RBC Distribution Width SD 42.5 fl (35.1-43.9); Red Blood Count 4.21 M/mm3 (4.2-5.4); Reticulocyte Count 1.46 % (0.5-1.5); White Blood Count 5.5 K/mm3 (4.4-11.0)
[2024-01-30 16:59] LABS: Ferritin 26 ng/mL (8-252); Iron 35 ug/dL (50-170); Iron Binding Capacity,Total 472 ug/dL (250-450); PERCENT IRON SATURATION 7.4 % (15.0-55.0)
[2024-01-30 17:01] LABS: Differential Comment SCANNED; Differential Indicated SCAN CRITERIA MET; Reactive Lymphocyte 1+
[2024-01-30 17:11] LABS: Vitamin B12 > 2000 pg/mL (211-911)
== END | disposition home or self-care (01) ==
LOC: LAB 15:52
PROVIDERS: PCP Family Medicine Geriatric Medicine; Referring Provider Family Medicine Geriatric Medicine; Visit Provider Family Medicine Geriatric Medicine
DX: I10 Essential (primary) hypertension (principal); E55.9 Vitamin D deficiency, unspecified; D64.9 Anemia, unspecified
CPT/HCPCS: 36415; 82306; 82607; 82728; 82746; 83540; 83550; 83970; 85025; 85045

== ENCOUNTER → 2024-01-31 | Outpatient (CLI) | payer MEDICARE, SELFPAY | END | disposition home or self-care (01) | LOC: LABSPEC 07:59 | PROVIDERS: PCP Family Medicine Geriatric Medicine; Referring Provider Family Medicine Geriatric Medicine; Visit Provider Family Medicine Geriatric Medicine | DX: I10 Essential (primary) hypertension (principal); E55.9 Vitamin D deficiency, unspecified; D64.9 Anemia, unspecified | CPT/HCPCS: 82274 ==

== ENCOUNTER → 2024-02-04 | Outpatient (CLI) | payer MEDICARE, SELFPAY ==
[2024-02-04 11:23] LABS: 24HR UR TOTAL VOLUME 500 ml; Calcium Urine pH Range 2
== END | disposition home or self-care (01) ==
LOC: LAB 09:00
PROVIDERS: PCP Family Medicine Geriatric Medicine; Referring Provider Family Medicine Geriatric Medicine; Visit Provider Family Medicine Geriatric Medicine
DX: E83.52 Hypercalcemia (principal)
CPT/HCPCS: 81050; 82340

== ENCOUNTER → 2024-02-12 | Outpatient (CLI) | payer MEDICARE, SELFPAY ==
[2024-02-12 14:32] LABS: Absolute Neutrophil Count 4.4 X10^3/uL (2.0-7.7); Basophil# 0.03 X10^3/uL; Basophil% 0.5 % (0-1); Eosinophil# 0.04 X10^3/uL; Eosinophils% 0.6 % (0-5); Hematocrit 36.6 % (37-47); Hemoglobin 11.3 g/dL (12.0-15.0); Lymphocyte % 22.3 % (19-41); Mean Corp Hgb Conc 30.9 g/dL (32-36); Mean Corpuscular Hgb 24.3 pg (27.0-32.0); Mean Corpuscular Volume 78.7 fL (81-99); Mean Platelet Vol. 10.7 fl (6.2-12.0); Monocyte# 0.44 X10^3/uL; NRBC Flagged by Analyzer 0 % (0-5); Neutrophil # 4.35 X10^3/uL (2.7-7.7); Neutrophil % 69.4 % (47-70); Platelet Count 255 K/mm3 (150-450); RBC Distribution Width CV 15.7 % (11.6-14.6); RBC Distribution Width SD 44.4 fl (35.1-43.9); Red Blood Count 4.65 M/mm3 (4.2-5.4); White Blood Count 6.3 K/mm3 (4.4-11.0)
[2024-02-12 15:12] LABS: ALB/GLOB Ratio 1.1 RATIO (0.9-2.4); AST(SGOT) 17 U/L (15-37); Alanine Aminotransfer ALT/SGPT 18 U/L (13-56); Albumin, Serum 3.7 g/dL (3.2-5.0); Alkaline Phosphatase 59 U/L (45-117); Anion Gap 7 (5-15); BUN 13 mg/dL (7-18); BUN/Creat Ratio 9.5 RATIO (10-20); Calcium,Total 9.5 mg/dL (8.5-10.1); Chloride 106 mmol/L (98-107); Creatinine, Serum 1.37 mg/dL (0.55-1.02); EST Glomerular Filtration Rate 41 mL/min (>60); Est Glom Filt Rate - Afr Amer 49 mL/min (>60); Globulin 3.4 g/dL (2.2-4.2); Glucose 109 mg/dL (74-106); Protein, Total 7.1 g/dL (6.4-8.2); Sodium Level 139 mmol/L (136-145)
== END | disposition home or self-care (01) ==
LOC: LAB 13:41
PROVIDERS: PCP Family Medicine Geriatric Medicine; Referring Provider Family Medicine Geriatric Medicine; Visit Provider Family Medicine Geriatric Medicine
DX: E83.52 Hypercalcemia (principal)
CPT/HCPCS: 36415; 80053; 85025

== ENCOUNTER 2024-02-19 08:38 | Emergency (ER) | payer MEDICARE, SELFPAY ==
[2024-02-19 08:38] VITALS: BP 181/91; PULSE 108; RESP 14; TEMP 36.6; O2SAT 97
--- NOTE | 2024-02-19 08:53 | CT_ITS ---
STUDY: CT ABDOMEN AND PELVIS WITH CONTRAST REASON FOR EXAM: Female, 68 years old. Bloody stool. Abdominal pain. RADIATION DOSAGE (If Supplied By Facility): CTDIvol = ( 14.71 ) mGy, DLP = ( 591.61 ) mGycm TECHNIQUE: Transaxial images were obtained from the dome of the diaphragm to the symphysis pubis with oral contrast. Oral and amp; IV Gastrografin and amp; 100mL Isovue-370 was administered. Sagittal and coronal images were reconstructed. Individualized dose optimization techniques were used for this CT. COMPARISON: None. FINDINGS: Minimal increased linear markings at the lung bases suggestive of mild basilar scarring. The visualized portions of the heart are within normal limits. Subcentimeters cyst is seen in the inferior aspect of the right lobe of the liver. Normal gallbladder and extrahepatic biliary system. Normal spleen. Normal pancreas. Normal bilateral adrenal glands. There is a 2.1 cm x 2.1 cm cyst in the lower pole of the right kidney. There is also evidence of a 1 cm cyst in the mid medial portion of the right kidney. Normal left kidney. There is a small hiatal hernia. Normal small intestine. Fecal material is seen throughout the colon. Mild degree of the haustral thickening involving the transverse colon. Colitis should be ruled out. The appendix is visualized and appears normal. There is diffuse atherosclerotic calcification of the abdominal aorta, without a demonstrated aneurysm. Normal inferior vena cava. Normal retroperitoneum. Normal urinary bladder. Normal abdominal wall. There are diffuse degenerative changes of the visualized lumbar spine. CT/Abdomen/Pelvis WITH Contrast IMPRESSION: Findings suggestive of a mild degree of colitis involving the transverse colon. Small hiatal hernia. Right renal cysts. Electronically Signed: Dae Love MD at 11:01 EDT ,
--- NOTE | 2024-02-19 08:54 | EDS_ITS ---
HPI History of Present Illness Chief Complaint: Abd Pain Detail of Chief Complaint: Abdominal pain, vomiting, constipation Informant: patient and spouse/S.O. Narrative Narrative: Patient present secondary abdominal pain, constipation, vomiting, blood in stool. She states this has been ongoing for quite some time and she has been undergoing workups. She is scheduled to have an upper and lower scope with Dr. Aguero in early March. She presents to the ER today because her abdominal pain is worse and she is having trouble getting comfortable. She did not measure her temperature but did have some chills and sweats this morning. [facility] Medical History (Updated 02/19/24 @ 12:[address] Marcella Griffin MD) Unspecified chronic bronchitis Breast cancer Abnormal ultrasound of breast Breast pain, right Encounter for screening for malignant neoplasm of lung Disc degeneration Tobacco use disorder, continuous Encounter for screening for malignant neoplasm of lung in current smoker with 30 pack year history or greater Sciatic leg pain Wears dentures Post-menopausal Depression Anemia High cholesterol Back pain Shortness of breath on exertion Hoarseness Chronic cough Hypertension Iron deficiency anemia due to chronic blood loss Osteopenia Invasive ductal carcinoma of right breast Ankle sprain Foot fracture Hemorrhoids SOB (shortness of breath) Arthritis Chronic constipation GERD (gastroesophageal reflux disease) Smoking greater than 30 pack years Emphysema lung Bronchitis Asthma Degenerative joint disease Home Medications ?Medication ?Instructions ?Recorded ?Last Taken ?Type atorvastatin 20 mg tablet (Lipitor) 20 mg PO QHS 06/08/20 07/03/21 History albuterol sulfate 90 mcg/actuation 2 puff inhalation Q4H PRN 06/23/20 07/04/21 Rx aerosol inhaler shortness of breath or wheezing #1 device amlodipine 2.5 mg tablet 5 mg PO DAILY 06/20/21 07/04/21 History anastrozole 1 mg tablet 1 mg PO DAILY #90 tabs 04/02/23 Unknown Rx pravastatin 40 mg tablet 40 mg PO DAILY 05/14/23 Unknown History budesonide 160 mcg-glycopyr 9 2 inh inhalation BID 12/06/23 Unknown History mcg-formot 4.8 mcg/actuation HFA inhaler (Breztri Aerosphere) calcium acetate 667 mg tablet 667 mg PO ONCE 12/06/23 Unknown History cholecalciferol (vitamin D3) 125 125 mcg PO DAILY 12/06/23 Unknown History mcg (5,000 unit) capsule magnesium 250 mg tablet 250 mg PO DAILY 12/06/23 Unknown History mecobalamin (vitamin B12) 2,500 mcg PO 12/06/23 Unknown History mcg chewable tablet zinc gluconate 50 mg tablet 50 mg PO DAILY 12/06/23 Unknown History omeprazole 40 mg capsule,delayed 40 mg PO QDAY #30 caps 02/07/24 Unknown Rx release polysaccharide iron complex 150 mg 150 mg PO QDAY 02/07/24 Unknown History iron capsule potassium chloride 20 mEq 20 meq PO QDAY 02/07/24 Unknown History tablet,extended release ciprofloxacin HCl 500 mg tablet 500 mg PO BID #20 tabs 02/19/24 Unknown Rx (Cipro) metronidazole 500 mg tablet 500 mg PO BID 10 days #20 tabs 02/19/24 Unknown Rx Allergy/AdvReac Type Severity Reaction Status Date / Time latex AdvReac Intermediate rash Verified 02/19/24 08:38 Penicillins AdvReac Intermediate Rash Verified 02/19/24 08:38 Family History Mother Diabetes Hypertension Gastric ulcer Hyperlipidemia CVA (cerebral vascular accident) Father Diabetes COPD (chronic obstructive pulmonary disease) Hypertension Prostate cancer Aunt Breast cancer Surgical History Status post right breast lumpectomy History of tonsillectomy and adenoidectomy History of neck surgery Hx of colonoscopy (~2019) H/O tubal ligation Social History Smoking Status: Current every day smoker tobacco type: cigarettes Tobacco: How many years used: 45 how long ago did patient quit smoking: down to only smoking 4 cigarettes/day second hand exposure: Yes alcohol intake: current alcohol intake frequency: holidays/special occasions only substance use type: marijuana caffeine: Yes what type of physical activity do you participate in: none frequency: does not exercise laine/jehovah's witness: None seatbelt use: always do you feel safe at home: Yes ROS ROS ED Constitutional Constitutional ED: Reports chills and sweats Eyes Eyes: Denies change in vision or discharge from eye(s) ENT ENT ED: Denies discharge from eye(s), rhinorrhea or sore throat Cardiovascular Cardiovascular: Denies chest pain or palpitations Respiratory/Chest Respiratory/Chest: Denies cough or dyspnea Gastrointestinal Gastrointestinal: Reports abdominal pain, constipation, nausea and vomiting; Denies diarrhea Genitourinary Genitourinary ED: Denies dysuria Musculoskeletal Musculoskeletal: Denies back pain or extremity pain Integumentary Denies Abrasions or rash Neurologic Neurologic: Denies headache(s) or weakness Psychiatric Psychiatric: Denies anxiety or depression Allergic/Immunologic Allergic/Immunologic ED: Denies lip swelling or urticaria EXAM Physical Exam Const Vital Signs: 02/19/24 08:38 02/19/24 11:00 Temperature 98 F 97.6 F L Temperature Source Temporal Temporal Pulse Rate 108 H 64 Respiratory Rate 14 Blood Pressure 181/91 H 136/76 H Blood Pressure Mean 121 96 Pulse Ox 97 Oxygen Delivery Method Room Air Positive well nourished and well developed General Appearance ED: well developed HEENT Reports moist mucous membranes Eyes EOMs intact bilaterally Chest Wall inspection of chest normal and palpation of chest normal Resp normal respiratory effort and clear to auscultation bilaterally Cardio regular rate and regular rhythm GI GI Narrative: Abdomen soft with mild diffuse tenderness to palpation. Active bowel sounds are noted. No palpable masses. Extremity normal to inspection Neuro oriented x3 and no sensory deficits noted Motor Exam: strength 5/5 throughout Psych mental status grossly normal Skin no rashes or lesions noted MDM MDM MDM Narrative Medical decision making narrative: IV line established. Patient given morphine, Zofran, IV fluids. Labwork obtained to evaluate for leukocytosis, anemia, and electrolyte derangement. CT scan of the abdomen pelvis with p.o. and IV contrast obtained to evaluate for colitis, diverticulitis, bowel obstruction. History & Record Review Discussion w/independent historian: Patient and Significant other Additional record(s) reviewed:: Prior labs Lab Data Attestation: I reviewed the patient's lab results. Labs: Laboratory Results - last 24 hr 02/19/24 02/19/24 09:11 09:38 WBC 6.7 RBC 5.17 Hgb 12.3 Hct 39.7 MCV 76.8 L MCH 23.8 L MCHC 31.0 L RDW Std Deviation 42.9 RDW Coeff of Marisol 15.5 H Plt Count 225 MPV 10.9 Immature Gran % (Auto) 0.400 Neut % (Auto) 66.3 Lymph % (Auto) 25.6 [place] % (Auto) 6.1 Eos % (Auto) 1.0 Baso % (Auto) 0.6 Absolute Neuts (auto) 4.4 Absolute Lymphs (auto) 1.71 Nucleated RBC % 0 Sodium 138 Potassium 3.9 Chloride 107 Carbon Dioxide 24.0 Anion Gap 7 BUN 20 H Creatinine 1.51 H Est GFR (MDRD) Af Amer 44 L Est GFR (MDRD) Non-Af 36 L BUN/Creatinine Ratio 13.2 Glucose 135 H Calcium 9.7 Total Bilirubin 0.60 Direct Bilirubin 0.16 AST 19 ALT 17 Alkaline Phosphatase 63 Total Protein 7.3 Albumin 4.0 Globulin 3.3 Lipase 24 Urine Color Yellow Urine Clarity Sl. Cloudy Urine pH 7.0 Ur Specific [place] 1.010 Urine Protein 30 H Urine Glucose (UA) Normal Urine Ketones 5 H Urine Occult Blood 10 H Urine Nitrite Negative Urine Bilirubin Negative Urine Urobilinogen Normal Ur Leukocyte Esterase 100 H Urine RBC 0-5 SEEN Urine WBC 10-25 SEEN Ur Squamous Epith Cells 0-5 SEEN Urine Bacteria 1+ Urine Mucus 0 SEEN Radiography Diagnostic Testing: Clinical Impression(s) from Imaging Studies Abdomen/Pelvis CT 02/19/24 08:53 IMPRESSION: Findings suggestive of a mild degree of colitis involving the transverse colon. Small hiatal hernia. Right renal cysts. Electronically Signed: Dae Love MD at 11:01 EDT , Treatment and Re-Evaluation :: CBC was a white count of 6.7 with normal differential. Hemoglobin is 12.3. Chemistry studies reveal a BUN of 20 and a creatinine of 1.51. Glucose is 135. LFTs and lipase are normal. Urinalysis reveals 10-25 white cells with 1+ bacteria. She has no nitrites. She has no urinary symptoms. CT scan of the abdomen pelvis with p.o. and IV contrast obtained. Findings are suggestive of mild degree of colitis involving the transverse colon. Small hiatal hernia is noted. Patient did have a soapsuds enema here with moderate results. She will be discharged with prescription for Cipro and Flagyl to treat her colitis as she does have a penicillin allergy. This will also cover her urine and I do not feel this needs to be sent for culture at this time. Patient comfortable with the plan. Return instructions given. Discharge Plan Triage Chief Complaint: Abd Pain ED Provider: Marcella Griffin Dx/Rx/DC Orders Clinical Impression: Colitis, Constipation Instructions: ED Understanding Colitis, ED Constipation (Adult) Prescriptions: New ciprofloxacin HCl [Cipro] 500 mg tablet 500 mg PO BID Qty: 20 0RF metronidazole 500 mg tablet 500 mg PO BID 10 Days Qty: 20 0RF No Action atorvastatin [Lipitor] 20 mg tablet 20 mg PO QHS albuterol sulfate 90 mcg/actuation HFA aerosol inhaler 2 puff INHALATION Q4H PRN (Reason: shortness of breath or wheezing) Qty: 1 6RF Rx Instructions: administer with spacer amlodipine 2.5 mg tablet 5 mg PO DAILY pravastatin 40 mg tablet 40 mg PO DAILY Patient Comments: TAKE 1 TABLET BY MOUTH EVERY DAY AT BEDTIME zinc gluconate 50 mg tablet 50 mg PO DAILY magnesium 250 mg tablet 250 mg PO DAILY cholecalciferol (vitamin D3) 125 mcg (5,000 unit) capsule 125 mcg PO DAILY calcium acetate 667 mg tablet 667 mg PO ONCE Breztri Aerosphere 160-9-4.8 mcg/actuation HFA aerosol inhaler 2 inh inhalation BID mecobalamin (vitamin B12) 2,500 mcg tablet,chewable PO omeprazole 40 mg capsule,delayed release(DR/EC) 40 mg PO QDAY Qty: 30 5RF Rx Instructions: swallow whole; do not crush, chew, dissolve, cut, break polysaccharide iron complex 150 mg iron capsule 150 mg PO QDAY potassium chloride 20 mEq tablet extended release 20 meq PO QDAY anastrozole 1 mg tablet 1 mg PO DAILY Qty: 90 1RF Primary Care Provider: Tani Grey Chi Referrals: Tani Grey Chi, MD [Primary Care Provider] - 5-7 Days Print Language: Croatian Disposition Disposition: Home, Self Care
[2024-02-19] MEDS: 0.9% Normal Saline (1000mL) 1,000 ML 150 ML IV (09:03)
[2024-02-19] MEDS: Ondansetron 4 MG/2 ML Vial IV (09:03)
[2024-02-19] MEDS: Morphine 4 MG/ML Syringe IV (09:03)
[2024-02-19] MEDS: 0.9% Normal Saline (500mL Bag) 500 ML 1000 ML IV (09:04)
[2024-02-19 09:32] LABS: Absolute Lymphocyte Count 1.71 X10^3/uL (0.83-4.51); Absolute Neutrophil Count 4.4 X10^3/uL (2.0-7.7); Basophil# 0.04 X10^3/uL; Basophil% 0.6 % (0-1); Eosinophil# 0.07 X10^3/uL; Hematocrit 39.7 % (37-47); Hemoglobin 12.3 g/dL (12.0-15.0); Lymphocyte # 1.71 X10^3/ul (0.83-4.51); Lymphocyte % 25.6 % (19-41); Mean Corpuscular Hgb 23.8 pg (27.0-32.0); Mean Corpuscular Volume 76.8 fL (81-99); Mean Platelet Vol. 10.9 fl (6.2-12.0); Monocyte# 0.41 X10^3/uL; Monocyte% 6.1 % (0-10); NRBC Flagged by Analyzer 0 % (0-5); Neutrophil # 4.43 X10^3/uL (2.7-7.7); Neutrophil % 66.3 % (47-70); Platelet Count 225 K/mm3 (150-450); RBC Distribution Width CV 15.5 % (11.6-14.6); RBC Distribution Width SD 42.9 fl (35.1-43.9); Red Blood Count 5.17 M/mm3 (4.2-5.4); White Blood Count 6.7 K/mm3 (4.4-11.0)
[2024-02-19 09:34] LABS: AST(SGOT) 19 U/L (15-37); Alanine Aminotransfer ALT/SGPT 17 U/L (13-56); Alkaline Phosphatase 63 U/L (45-117); Anion Gap 7 (5-15); BUN 20 mg/dL (7-18); BUN/Creat Ratio 13.2 RATIO (10-20); Bilirubin, Direct 0.16 mg/dL (0.00-0.30); Calcium,Total 9.7 mg/dL (8.5-10.1); Chloride 107 mmol/L (98-107); Creatinine, Serum 1.51 mg/dL (0.55-1.02); EST Glomerular Filtration Rate 36 mL/min (>60); Est Glom Filt Rate - Afr Amer 44 mL/min (>60); Globulin 3.3 g/dL (2.2-4.2); Glucose 135 mg/dL (74-106); Lipase 24 U/L (13-75); Potassium 3.9 mmol/L (3.5-5.1); Protein, Total 7.3 g/dL (6.4-8.2); Sodium Level 138 mmol/L (136-145)
[2024-02-19 09:49] LABS: Mucous, Urine 0 SEEN /hpf (<or=2+)
[2024-02-19 09:51] LABS: Color, Urine Yellow (Yellow); Glucose, Dipstick Normal (Normal); Ketone-Dipstick 5 mg/dl (Negative); Leukocyte Esterase-Dipstick 100 /ul (Negative); Nitrite-Dipstick Negative (Negative); Occult Blood-Urine 10 /ul (Negative); Protein-Dipstick 30 mg/dl (Negative); Urine Bilirubin Dipstick Negative (Negative); Urine Clarity Sl. Cloudy (Clear); Urine Urobilinogen Normal (Normal)
[2024-02-19 10:02] LABS: Red Blood Cells-Urine 0-5 SEEN /hpf (0-5); White Blood Cells 10-25 SEEN /hpf (0-5)
[2024-02-19 10:03] LABS: Bacteria 1+ /hpf (None Seen); Squamous Epithelial Cells - UA 0-5 SEEN /hpf (5-10)
[2024-02-19 11:00] VITALS: BP 136/76; PULSE 64; TEMP 36.4
[2024-02-19 12:49] VITALS: BP 136/79; PULSE 85; RESP 16; TEMP 36.3; O2SAT 90
== END 2024-02-19 12:51 | disposition home or self-care (01) ==
PROVIDERS: Emergency Provider Emergency Medicine; PCP Family Medicine Geriatric Medicine; Visit Provider Emergency Medicine
DX: K52.9 Noninfective gastroenteritis and colitis, unspecified (principal); K59.00 Constipation, unspecified; R11.2 Nausea with vomiting, unspecified; I10 Essential (primary) hypertension; E78.00 Pure hypercholesterolemia, unspecified; F17.210 Nicotine dependence, cigarettes, uncomplicated; Z79.899 Other long term (current) drug therapy
CPT/HCPCS: 74177; 80048; 80076; 81001; 83690; 85025; 96361; 96374; 96375; 99284; Q9967; A4216; J2405

== ENCOUNTER → 2024-02-20 | Outpatient (CLI) | payer MEDICARE, SELFPAY ==
--- NOTE | 2024-02-20 09:55 | NM_ITS ---
CLINICAL: 68-year-old female with history of hypercalcemia. 99m Tc SESTAMIBI DUAL PHASE PARATHYROID SCINTIGRAPHY COMPARISON: None available FINDINGS: Following the intravenous administration of 27.0 mCi of 99m Tc sestamibi, image acquisitions of the anterior neck at 15 minutes and 3.0 hours post radiopharmaceutical provision reveal: 1. Immediate static blood pool acquisitions demonstrate apparent visualization of the right lobe thyroid colloid and subtle uptake is identified in the left anterior neck. 2. Delayed images depict complete washout of the radiopharmaceutical from the presumed previously defined right lobe thyroid parenchyma. There is persistent increased uptake noted in the left anterior neck correlating with the subtle abnormality on initial acquisitions. NM/Parathyroid Scan IMPRESSION: 1. There appears to be scintigraphic evidence of a low-grade parathyroid adenoma involving the left anterior neck as defined above. Electronically Signed: Demetris Diaz DO at 7:59 EDT ,
== END | disposition home or self-care (01) ==
LOC: NM 09:53
PROVIDERS: PCP Family Medicine Geriatric Medicine; Referring Provider Family Medicine Geriatric Medicine; Visit Provider Family Medicine Geriatric Medicine
DX: E83.52 Hypercalcemia (principal)
CPT/HCPCS: 78070; A9500

== ENCOUNTER → 2024-02-25 | Outpatient (CLI) | payer MEDICARE, SELFPAY ==
--- NOTE | 2024-02-25 10:46 | CT_ITS ---
STUDY: CT ABDOMEN AND PELVIS WITH CONTRAST REASON FOR EXAM: Female, 68 years old. Lower abdominal pain. Diarrhea/constipation. History of prior right lumpectomy. RADIATION DOSAGE (If Supplied By Facility): CTDIvol = ( 11.91 ) mGy, DLP = ( 631.23 ) mGycm TECHNIQUE: Transaxial images were obtained from the dome of the diaphragm to the symphysis pubis with oral contrast. Oral and amp; IV Gastrografin and amp; 100mL Isovue-370 was administered. Sagittal and coronal images were reconstructed. Individualized dose optimization techniques were used for this CT. COMPARISON: Comparison is made with prior study dated February 19, 2024. FINDINGS: Stable minimal increased markings at the lung bases suggestive of bibasilar linear atelectasis and/or scarring. The visualized portions of the heart are within normal limits. Stable subcentimeters cyst in the inferior aspect of the right lobe of the liver. Normal gallbladder and extrahepatic biliary system. Normal spleen. Normal pancreas. Normal bilateral adrenal glands. Stable small right renal cysts. Normal left kidney. There is a small hiatal hernia. Normal small intestine. Normal colon. The appendix is visualized and appears normal. Normal abdominal aorta. Normal inferior vena cava. Normal retroperitoneum. Normal urinary bladder. Normal abdominal wall. There are diffuse degenerative changes of the visualized lumbar spine. Levoscoliosis. CT/Abdomen/Pelvis WITH Contrast IMPRESSION: Stable subcentimeter cyst in the inferior aspect of the right lobe of the liver. Stable right renal cysts. Electronically Signed: Dae Love MD at 13:38 EDT ,
[2024-02-25 11:30] LABS: Absolute Lymphocyte Count 1.14 X10^3/uL (0.83-4.51); Absolute Neutrophil Count 4.6 X10^3/uL (2.0-7.7); Basophil# 0.02 X10^3/uL; Basophil% 0.3 % (0-1); Eosinophil# 0.08 X10^3/uL; Eosinophils% 1.3 % (0-5); Hematocrit 38.2 % (37-47); Hemoglobin 11.7 g/dL (12.0-15.0); Lymphocyte # 1.14 X10^3/ul (0.83-4.51); Lymphocyte % 18.2 % (19-41); Mean Corp Hgb Conc 30.6 g/dL (32-36); Mean Corpuscular Hgb 24.2 pg (27.0-32.0); Mean Corpuscular Volume 79.1 fL (81-99); Mean Platelet Vol. 10.8 fl (6.2-12.0); Monocyte# 0.47 X10^3/uL; Monocyte% 7.5 % (0-10); NRBC Flagged by Analyzer 0 % (0-5); Neutrophil # 4.55 X10^3/uL (2.7-7.7); Neutrophil % 72.4 % (47-70); Platelet Count 210 K/mm3 (150-450); RBC Distribution Width CV 16.3 % (11.6-14.6); RBC Distribution Width SD 46.2 fl (35.1-43.9); Red Blood Count 4.83 M/mm3 (4.2-5.4); White Blood Count 6.3 K/mm3 (4.4-11.0)
[2024-02-25 12:47] LABS: ALB/GLOB Ratio 1.2 RATIO (0.9-2.4); AST(SGOT) 35 U/L (15-37); Alanine Aminotransfer ALT/SGPT 29 U/L (13-56); Alkaline Phosphatase 62 U/L (45-117); Anion Gap 6 (5-15); BUN 9 mg/dL (7-18); BUN/Creat Ratio 6.5 RATIO (10-20); Calcium,Total 9.6 mg/dL (8.5-10.1); Chloride 109 mmol/L (98-107); Creatinine, Serum 1.39 mg/dL (0.55-1.02); EST Glomerular Filtration Rate 40 mL/min (>60); Est Glom Filt Rate - Afr Amer 48 mL/min (>60); Globulin 3.4 g/dL (2.2-4.2); Glucose 104 mg/dL (74-106); Potassium 3.8 mmol/L (3.5-5.1); Protein, Total 7.4 g/dL (6.4-8.2); Sodium Level 140 mmol/L (136-145)
== END | disposition home or self-care (01) ==
PROVIDERS: PCP Family Medicine Geriatric Medicine; Referring Provider Family Medicine Geriatric Medicine; Visit Provider Family Medicine Geriatric Medicine
DX: I10 Essential (primary) hypertension (principal); K92.1 Melena; R10.9 Unspecified abdominal pain
CPT/HCPCS: 36415; 74177; 80053; 82274; 85025; Q9967

== ENCOUNTER → 2024-02-26 | Outpatient (CLI) | payer MEDICARE, SELFPAY ==
[2024-02-28 15:09] LABS: H.Pylori Breath Test Negative (Negative)
== END | disposition home or self-care (01) ==
LOC: LAB 11:51
PROVIDERS: PCP Family Medicine Geriatric Medicine; Referring Provider Family Medicine Geriatric Medicine; Visit Provider Family Medicine Geriatric Medicine
DX: K22.10 Ulcer of esophagus without bleeding (principal)
CPT/HCPCS: 83013

== ENCOUNTER 2024-02-29 11:14 | Outpatient (CLI) | payer MEDICARE, SELFPAY ==
[2024-02-29 12:45] LABS: PTHIN 115.7 pg/mL (18.4-80.1)
[2024-03-04 14:15] LABS: T3 Uptake 32 % (30-39); T4 Free Direct 0.99 ng/dL (0.76-1.46); Thyroid Stim Hormone (TSH) 4.14 uIU/mL (0.358-3.74)
[2024-03-04 20:51] LABS: T7 / Free Thyroxin Index 0.3 (1.4-4.5)
== END 2024-02-29 23:59 | disposition home or self-care (01) ==
PROVIDERS: PCP Family Medicine Geriatric Medicine; Referring Provider Family Medicine Geriatric Medicine; Visit Provider Family Medicine Geriatric Medicine
DX: E21.3 Hyperparathyroidism, unspecified (principal); R94.6 Abnormal results of thyroid function studies
CPT/HCPCS: 36415; 83970; 84439; 84443; 84479

== ENCOUNTER → 2024-03-17 | Outpatient (CLI) | payer MEDICARE, SELFPAY ==
[2024-03-17 10:54] LABS: Calcium,Total 9.6 mg/dL (8.5-10.1)
[2024-03-17 11:00] LABS: PTHIN 411.6 pg/mL (18.4-80.1)
== END | disposition home or self-care (01) ==
LOC: LAB 10:07
PROVIDERS: PCP Family Medicine Geriatric Medicine; Visit Provider Surgery
DX: E21.3 Hyperparathyroidism, unspecified (principal)
CPT/HCPCS: 36415; 82310; 82652; 83970

== ENCOUNTER → 2024-03-18 | Outpatient (CLI) | payer MEDICARE, SELFPAY ==
[2024-03-18 11:31] LABS: Thyroid Stim Hormone (TSH) 1.66 uIU/mL (0.358-3.74)
[2024-03-18 12:10] LABS: Ionized Calcium 5.06 mg/dL (4.36-5.20)
[2024-03-18 18:09] LABS: Ionized Calcium Order ORDER TUBE
== END | disposition home or self-care (01) ==
LOC: LAB 10:05
PROVIDERS: PCP Family Medicine Geriatric Medicine; Visit Provider Family Medicine Geriatric Medicine
DX: E21.3 Hyperparathyroidism, unspecified (principal)
CPT/HCPCS: 36415; 82330; 84443

== ENCOUNTER 2024-03-24 05:45 | Day surgery (SDC) | payer MEDICARE, SELFPAY ==
[2024-03-24] VITALS (8 sets, daily range): BP systolic 156–174; BP diastolic 78–92; PULSE 66–76; RESP 16; TEMP 36–36.8; O2SAT 92–96; BMI 25.0
[2024-03-24] MEDS: Lactated Ringers 1,000 ML 15 ML IV (06:37)
--- NOTE | 2024-03-24 06:58 | PRE.ANES_ITS ---
ASA Classification* ASA Classification ASA Classification: 3 Assessment & Plan Anesthesia* Anesthesia Assessment Anesthesia Assessment: Discussed sedation and/or anesthesia options, risks, benefits, and alternatives with patient/parents/legal guardian/POA. Questions invited. The patient/parents/legal guardian/POA seems to understand and agrees to proceed with anesthesia plan. Reviewed the physical assessment, medical history, allergy history and patient home medications list prior to surgery/procedure/anesthetic and documented any changes. Performed airway and anesthesia risk assessments. Anesthesia Type Anesthesia Type: MAC (see written pre anesthesia record for complete assessment) Anesthesia Focused Assessment* Temperature: 98.3 F Pulse Rate: 76 Blood Pressure: 160/89 Respiratory Rate: 16 Pulse Ox: 93 Airway Assessment Mouth opens: >3 cm Mallampati Score: II Focused Labs Anesthesia Preop lab: CBC WBC 6.3 K/mm3 (4.4-11.0) 02/25/24 11:07 RBC 4.83 M/mm3 (4.2-5.4) 02/25/24 11:07 Hgb 11.7 g/dL (12.0-15.0) L 02/25/24 11:07 Hct 38.2 % (37-47) 02/25/24 11:07 Plt Count 210 K/mm3 (150-450) 02/25/24 11:07 CHEMISTRY Potassium 3.8 mmol/L (3.5-5.1) 02/25/24 11:07 Sodium 140 mmol/L (136-145) 02/25/24 11:07 Phosphorus 2.0 mg/dL (2.5-4.9) L 01/26/24 10:26 BUN 9 mg/dL (7-18) 02/25/24 11:07 Creatinine 1.39 mg/dL (0.55-1.02) H 02/25/24 11:07 Glucose 104 mg/dL (74-106) 02/25/24 11:07 TSH 1.66 uIU/mL (0.358-3.74) 03/18/24 10:09 COAG Pre-Assessment Diagnosis/Proposed Procedure Planned Operative Procedure(s): EGD/CSCOPE Anesthesia History 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 When Was Last Pacemaker Check QUESTION #4 FULL TEXT: You/Your Family Experience fever (hyperthermia) with Anesthesia Last Oral Intake Last Oral intake: Last Oral Intake NPO since 22:30 03/24/24 06:37 Meds taken in AM with sips of Yes 03/24/24 06:37 water? Meds patient instructed to amlodipine, anastrazole 03/24/24 06:37 take am of surgery PONV PONV - airport baggage screener: PONV - airport baggage screener Female Yes 03/19/24 10:10 HX of Motion Sickness No 03/19/24 10:10 HX of N/V After Surgery No 03/19/24 10:10 Non-Smoker No 03/19/24 10:10 Duration of Surgery greater No 03/19/24 10:10 than 60 minutes Number of Risk Factors 1 03/19/24 10:10 PONV Score Low Risk 03/19/24 10:10 Height & Weight Height & Weight: Anesthesia: Height & Weight Height 5 ft 2 in 03/24/24 06:37 Weight: 62 kg 03/24/24 06:37 Body Mass Index (BMI) 25.0 03/24/24 06:37 Respiratory Assessment Respiratory Assessment - airport baggage screener: Respiratory Tract Infection Hx - airport baggage screener Hx Respiratory Tract Infection No 03/19/24 10:10 STOP Sleep Apnea STOP Sleep Apnea - airport baggage screener: STOP Sleep Apnea - airport baggage screener Hx Hypertension Yes: CONTROLLED WITH MED 03/19/24 10:10 Hx Sleep Apnea No 03/19/24 10:10 CPAP BIPAP Do you snore loudly (louder No 03/19/24 10:10 than talking or can be heard Do you often feel tired/ Yes 03/19/24 10:10 fatigued/ sleepy during daytime? Has anyone observed you stop No 03/19/24 10:10 breathing during sleep? STOP Results Positive 06/26/24 10:10 QUESTION #5 FULL TEXT : Do you snore loudly (louder than talking or can be heard through closed doors)? 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 Specify any problems Hx of Preganancy in last 3 No 03/19/24 10:10 Months Nurse Filling Out Transfusion DSCHRIBER 03/19/24 10:10 & Questions: Date: 03/19/24 03/19/24 10:10 Time: 10:11 03/19/24 10:10 Patient unable to answer at this time (ie. confused, unrespo /Reproduction History /Reproductive History - airport baggage screener: /Reproductive Hx- airport baggage screener Hx Now No 03/19/24 10:10 Gestational Age (in weeks): EDC: Hx Hx Para Hx Section SAB No 03/19/24 10:10 Active Medications Active Medications: Current Medications Generic Name Dose Route Start Last Admin Trade Name Freq PRN Reason Stop Dose Admin Lactated Ringer's 1,000 mls @ 15 mls/hr 03/24/24 06:15 03/24/24 06:37 IV 15 mls/hr .Q48H LUKAS Administration PFSH Medical History Wears hearing aid Wears glasses Cancer Easy bruising History of ulceration Chronic constipation Gastric reflux Shortness of breath on exertion Emphysema, unspecified COPD (chronic obstructive pulmonary disease) History of pain when walking History of edema Hyperparathyroidism Abnormal ultrasound of breast Breast pain, right Encounter for screening for malignant neoplasm of lung Tobacco use disorder, continuous Encounter for screening for malignant neoplasm of lung in current smoker with 30 pack year history or greater Sciatic leg pain Wears dentures Post-menopausal Depression Anemia High cholesterol Back pain Chronic cough Hypertension Iron deficiency anemia due to chronic blood loss Osteopenia Invasive ductal carcinoma of right breast SOB (shortness of breath) Arthritis GERD (gastroesophageal reflux disease) Smoking greater than 30 pack years Emphysema lung Bronchitis Asthma Home Medications ?Medication ?Instructions ?Recorded ?Last Taken ?Type atorvastatin 20 mg tablet (Lipitor) 20 mg PO QHS 06/08/20 07/03/21 History albuterol sulfate 90 mcg/actuation 2 puff inhalation Q4H PRN 06/23/20 07/04/21 Rx aerosol inhaler shortness of breath or wheezing #1 device anastrozole 1 mg tablet 1 mg PO DAILY #90 tabs 04/02/23 03/24/24 Rx pravastatin 40 mg tablet 40 mg PO QHS 05/14/23 Unknown History budesonide 160 mcg-glycopyr 9 2 inh inhalation BID 12/06/23 Unknown History mcg-formot 4.8 mcg/actuation HFA inhaler (Breztri Aerosphere) cholecalciferol (vitamin D3) 125 125 mcg PO DAILY 12/06/23 Unknown History mcg (5,000 unit) capsule magnesium 250 mg tablet 250 mg PO DAILY 12/06/23 Unknown History omeprazole 40 mg capsule,delayed 40 mg PO QDAY #30 caps 02/07/24 Unknown Rx release polysaccharide iron complex 150 mg 150 mg PO QDAY 02/07/24 Unknown History iron capsule potassium chloride 20 mEq 20 meq PO QDAY 02/07/24 Unknown History tablet,extended release amlodipine 5 mg tablet 5 mg PO DAILY 03/19/24 03/24/24 History Allergy/AdvReac Type Severity Reaction Status Date / Time latex AdvReac Intermediate rash Verified 03/24/24 06:34 Penicillins AdvReac Intermediate Rash Verified 03/24/24 06:34 Family History Mother Diabetes Hypertension Gastric ulcer Hyperlipidemia CVA (cerebral vascular accident) Father Diabetes COPD (chronic obstructive pulmonary disease) Hypertension Prostate cancer Aunt Breast cancer Surgical History Hx of fusion of cervical spine Status post right breast lumpectomy History of tonsillectomy and adenoidectomy Hx of colonoscopy (~2019) H/O tubal ligation Social History Smoking Status: Current every day smoker tobacco type: cigarettes Tobacco: How many years used: 45 how long ago did patient quit smoking: down to only smoking 4 cigarettes/day second hand exposure: Yes alcohol intake: current alcohol intake frequency: holidays/special occasions only substance use type: marijuana caffeine: Yes what type of physical activity do you participate in: none frequency: does not exercise laine/orthodoxy: None seatbelt use: always do you feel safe at home: Yes Review of Systems (Anesthesia) ROS Narrative System reviewed and no additional complaints, except as documented.
--- NOTE | 2024-03-24 07:06 | HP.PCM_ITS ---
HPI - General General Date of Service: 03/24/24 HPI Narrative MATY SHEN, is a 68 F who presents for an EGD and colonoscopy due to anemia and reflux. Patient states that the omeprazole did not improve her epigastric discomfort. Patient states she did get something from Dr. Grye's office however when she went for a refill as she had a sample they wanted a $300 co-pay which she could not afford but patient states it worked well. Patient is unsure of the name. Patient states she is still taking the omeprazole but still having the epigastric discomfort. office visit 02/07/24 HPI HPI: 68-year-old female presents due to fecal occult positive blood and anemia. Patient's last colonoscopy was in 2020 she had tubular adenomas at that time along with a incomplete resected tubular adenoma she was referred to GI at [facility] who ended up doing a CAT scan and stated most too small so patient recommend repeat in 3 years. Patient previously had a superficial ulcer at the time of last EGD in 2020 as well currently not on any antacid. Patient does complain of some burning sensation in her epigastrium depending on what she eats. Patient states that she has bowel movements daily denies any blood that she is able to see and her stools are brown. Patient states with increased activity she may get lower abdominal pain or cramping but otherwise denies abdominal pain or nausea or vomiting. FORMERLY [facility] Medical History Wears hearing aid Wears glasses Cancer Easy bruising History of ulceration Chronic constipation Gastric reflux Shortness of breath on exertion Emphysema, unspecified COPD (chronic obstructive pulmonary disease) History of pain when walking History of edema Hyperparathyroidism Abnormal ultrasound of breast Breast pain, right Encounter for screening for malignant neoplasm of lung Tobacco use disorder, continuous Encounter for screening for malignant neoplasm of lung in current smoker with 30 pack year history or greater Sciatic leg pain Wears dentures Post-menopausal Depression Anemia High cholesterol Back pain Chronic cough Hypertension Iron deficiency anemia due to chronic blood loss Osteopenia Invasive ductal carcinoma of right breast SOB (shortness of breath) Arthritis GERD (gastroesophageal reflux disease) Smoking greater than 30 pack years Emphysema lung Bronchitis Asthma Home Medications ?Medication ?Instructions ?Recorded ?Last Taken ?Type atorvastatin 20 mg tablet (Lipitor) 20 mg PO QHS 06/08/20 07/03/21 History albuterol sulfate 90 mcg/actuation 2 puff inhalation Q4H PRN 06/23/20 07/04/21 Rx aerosol inhaler shortness of breath or wheezing #1 device anastrozole 1 mg tablet 1 mg PO DAILY #90 tabs 04/02/23 03/24/24 Rx pravastatin 40 mg tablet 40 mg PO QHS 05/14/23 Unknown History budesonide 160 mcg-glycopyr 9 2 inh inhalation BID 12/06/23 Unknown History mcg-formot 4.8 mcg/actuation HFA inhaler (Breztri Aerosphere) cholecalciferol (vitamin D3) 125 125 mcg PO DAILY 12/06/23 Unknown History mcg (5,000 unit) capsule magnesium 250 mg tablet 250 mg PO DAILY 12/06/23 Unknown History omeprazole 40 mg capsule,delayed 40 mg PO QDAY #30 caps 02/07/24 Unknown Rx release polysaccharide iron complex 150 mg 150 mg PO QDAY 02/07/24 Unknown History iron capsule potassium chloride 20 mEq 20 meq PO QDAY 02/07/24 Unknown History tablet,extended release amlodipine 5 mg tablet 5 mg PO DAILY 03/19/24 03/24/24 History Allergy/AdvReac Type Severity Reaction Status Date / Time latex AdvReac Intermediate rash Verified 03/24/24 06:34 Penicillins AdvReac Intermediate Rash Verified 03/24/24 06:34 Family History Mother Diabetes Hypertension Gastric ulcer Hyperlipidemia CVA (cerebral vascular accident) Father Diabetes COPD (chronic obstructive pulmonary disease) Hypertension Prostate cancer Aunt Breast cancer Surgical History Hx of fusion of cervical spine Status post right breast lumpectomy History of tonsillectomy and adenoidectomy Hx of colonoscopy (~2019) H/O tubal ligation Social History Smoking Status: Current every day smoker tobacco type: cigarettes Tobacco: How many years used: 45 how long ago did patient quit smoking: down to only smoking 4 cigarettes/day second hand exposure: Yes alcohol intake: current alcohol intake frequency: holidays/special occasions only substance use type: marijuana caffeine: Yes what type of physical activity do you participate in: none frequency: does not exercise lanie/amish: None seatbelt use: always do you feel safe at home: Yes Past Medical/Surgical History Planned Operation Planned Operative Procedure(s): EGD/CSCOPE S.O.S: No Previous Hospitalizations/Surgeries HX Hospitalizations: No HX of Surgeries: tubal ligation cervical fusion egd cscope x3 Any Problems With Anesthesia: Yes (SLOW TO AWAKEN) You/Your Family Experience Fever (Hyperthermia) With Anes: No Cholinesterase deficiency: No Cardiovascular Hx Chest Pain within Last 2 months: No Hx of Irregular Heartbeat and/or Afib: No Hx Heart Attack: No Hx Congestive Heart Failure: No Hx Rheumatic Fever: No Hx Hypertension: Yes (CONTROLLED WITH MED) Hx Internal Defibrillator: No Hx Pacemaker: No Hx Cardiac Catheterization: No Hx Cardiac Surgery/Stents/Etc.: No Hx Stress Test: No Hx Pain in Legs when Walking/Leg Cramps: No Respiratory Chronic Cough: No HX of Shortness of Breath: Yes (sob with 2 flights of stairs) Hoarseness: No Hx Chronic Obstructive Pulmonary Disease (COPD): Yes (inhaler) Hx Asthma: Yes Hx Emphysema: Yes Hx Sleep Apnea: No Hx Respiratory Tract Infection/Cold (presently): No Do You Snore Loudly (louder than talking or can be heard): No Do You Often Feel Tired/ Fatigued/ Sleepy Dring Daytime?: Yes Has Anyone Observed You Stop Breathing During Sleep?: No Result (for STOP score): Positive Hx Smoking: Yes (quit 21 days ago/ 1ppd for 45 yrs) Smoking Status: Current every day smoker Gastrointestinal Hx Gastrointestinal Disorders: No (constipation/bloating/occ nausea) Hx Gastrointestinal Bleed: No Hx Ulcer: No Hx Hiatal Hernia: No Difficulty Chewing/Swallowing: No Special diet followed at home: No Hx Unplanned Weight Loss of 20#: No HX Unplanned Weight Gain of 20#: No Neurological Hx Seizures: No HX Syncope/Blackout Spells/Unconsciousness: No Hx Transient Ischemic Attacks (TIA): No Hx Multiple Sclerosis: No Hx Parkinson's Disease: No Hx Head/Neck Injury: Yes (cervical fusion) Hx Headaches: Yes (in the past) Hx Back Injury/Pain: Yes (chronic back pain/ddd) Recent Onset of Speech Difficulty: No Restless Legs: No Does patient have nerve stimulator: No Blood Disorder Hx Leukemia: No Bleeding Tendencies: Yes (bruises easily) Hx Deep Vein Thrombosis: No Hx High Cholesterol: Yes (on med) Blood Transmitted Disease: No Hx Hepatitis: No Hx Cirrhosis: No Hx Anemia: Yes Hx Blood Disorders: No Reproduction : No Is Patient Lactating: No Hx Hysterectomy: No Hx Tubal Ligation: Yes Are You Post Menopause: Yes Genitourinary Hx Renal Disease: No Musculoskeletal Hx Arthritis: Yes Hx Rheumatoid Arthritis: No Hx Gout: No Recent Onset of an Orthopedic Problem: No Endocrine Hx Diabetes: No Thyroid Disease: No Hx Steroid Therapy: No Psycho/Social Hx Substance Use: No Hx Alcohol Use: Yes (rarely) Hx Anxiety: No Hx Depression: Yes (on med) Mental Illness: No Hx Dementia: No Miscellaneous Hx Cancer: No Recent Exposure to Contagious Disease: No Hx of C-Diff: No Any Loose Teeth: No (dentures) Allergies latex Adverse Reaction (Intermediate, Verified 03/24/24 06:34) rash Penicillins Adverse Reaction (Intermediate, Verified 03/24/24 06:34) Rash As a child. Discharge Is Pt Admitted From a [facility], or a Retirement: No After D/C, Where Do you Plan to Go: Return Home From the [facility] History Number of Risk Factors: 6 Vital Signs Vital Signs Vital Signs: 03/24/24 06:37 03/24/24 06:37 03/24/24 06:58 Temperature 98.3 F 98.3 F Temperature Source Temporal Pulse Rate 76 76 Respiratory Rate 16 16 Respiratory Pattern Normal Blood Pressure 160/89 H 160/89 H Blood Pressure Mean 112 Blood Pressure Source Monitor Blood Pressure Position Semi-Fowlers Blood Pressure Location Left Arm Pulse Ox 93 93 Oxygen Delivery Method Room Air Weight Weight: 136 lb 10.986 oz Body Mass Index (BMI) 25.0 Physical Exam Const alert, oriented x3 and no apparent distress HEENT normocephalic and head/scalp atraumatic Resp normal respiratory effort Cardio regular rate GI soft to palpation; Negative for non-distended Palpation: tender epigastric; Negative for guarding Extremity no clubbing, cyanosis or edema Skin no rashes or lesions noted Neuro CN's II-XII intact bilaterally Psych mental status grossly normal Assessment & Plan Assessment/Plan (1) GERD (gastroesophageal reflux disease): (2) Anemia: (3) Fecal occult blood test positive: Surgery Risks - Colonoscopy Risks Include but are not Limited To: Plan for EGD & Colonoscopy Risks include but are not limited to: Bleeding, perforation requiring further surgery, inability to complete colonoscopy requiring barium enema.
--- NOTE | 2024-03-24 07:30 | IMM_PTH ---
PATIENT: MATY SHEN LOC: EN U#:[id number] AGE/SX: 68/F ROOM: RE03/24/[address]: Dr. Kylah Aguero MD : 1955 BED: DIS: 03/24/2024 SPEC #: [id number] RECD: 03/24/24 12:11 STATUS: SUSANNAH REQ #: [id number] SUSANNAH: 03/24/24 07:[address]: Kylah Aguero DEPT: IMMUNOHISTOCHEMISTRY RECD BY: Sebastian Floyd ENTERED: 03/24/24 12:11 SP TYPE: IMMUNO OTHR DR: Dr. Tani Grey MD Tissues: A - Gastric mucous membrane Procedures: H Pylori (initial) PHYSICIAN & INSTITUTION [place] [id number] SPECIMEN INFORMATION: Tissue Source: A- Gastric antrum Clinical Info: GERD, anemia, fecal occult blood test positive Specimen Number: [id number] CPT code: 13846 METHODOLOGY: Deparaffinized sections of prefer/formalin-fixed tissue or PAP/DQ stained slides are incubated with monoclonal/polyclonal antibodies/oligonucleotide probes. Localization is made via biotin free immunoperoxidase method. Appropriate controls are performed and reacted as expected. Results on target cell population are indicated in the following table: RESULTS: ANTIBODY / CLONE RESULT Block A H Pylori (polyclonal) negative These tests were developed and their performance characteristics determined by [facility]. They may not have been cleared or approved by the U.S. Food and Drug Administration. The FDA has determined that such clearance or approval is not necessary. The above immunohistochemical/dualISH markers are ordered and reviewed by the Pathologist. INTERPRETATION: A. Gastric antrum, biopsy: Negative for Helicobacter pylori organisms. NORA/ 03/25/2024
--- NOTE | 2024-03-24 07:30 | EGD_PTH ---
PATIENT: MATY SHEN LOC: EN U#:[id number] AGE/SX: 68/F ROOM: RE03/24/[address]: Dr. Kylah Aguero MD : 1955 BED: DIS: 03/24/2024 SPEC #: [id number] RECD: 03/24/24 10:07 STATUS: SUSANNAH BEATRICE #: [id number] SUSANNAH: 03/24/24 07:[address]: Kylah Aguero DEPT: SURGICAL PATHOLOGY RECD BY: Valentina Campbell ENTERED: 03/24/24 11:22 SP TYPE: EGD BIOPSY MARC DR: Dr. Tani Grey MD Tissues: A - Gastric mucous membrane B - COLON BIOPSY C - COLON BIOPSY D - Sigmoid colon biopsy E - Rectum, NOS Procedures: Surgery Specimen Level IV HEADER OPERATION: Colonoscopy, EGD, biopsy, polypectomy PRE-OP DIAGNOSIS: GERD, anemia, fecal occult test positive TISSUE SUBMITTED: A- Gastric antrum, B- Hepatic flexure polyp biopsy, C- Hepatic flexure polyp D- Sigmoid colon polyp x2, E- Rectal polyp biopsy x2 MICROSCOPIC DIAGNOSIS A. Gastric antrum, biopsy: Mild gastritis. See microscopic description and comment. B. Hepatic flexure polyp, biopsy: Tubular adenoma. C. Hepatic flexure polyp, polypectomy: Tubular adenomas x2. D. Sigmoid colon polyp x2, polypectomy: Fragments of tubular adenoma. Fragments of fecal material. E. Rectal polyp x2, biopsy: Hyperplastic polyps x2. / 03/25/2024 COMMENT A. The results of immunohistochemistry for Helicobacter pylori will be reported separately ([id number]). MICROSCOPIC DESCRIPTION Slides are reviewed. A. The specimen shows fragments of gastric mucosa with chronic inflammatory cell infiltrates in the lamina propria consisting of lymphocytes and plasma cells, consistent with mild chronic gastritis. GROSS DESCRIPTION A. Received in fixative is one container labeled with the patient's name and designated Gastric antrum biopsy. The specimen consists of one irregular fragment of light toney soft tissue that measures 0.4 x 0.3 x 0.1 cm. The specimen is totally submitted in one cassette. B. Received in fixative is one container labeled with the patient's name and designated Hepatic flexure polyp. The specimen consists of one irregular fragment of light toney soft tissue that measures 0.4 x 0.3 x 0.1 cm. The specimen is totally submitted in one cassette. C. Received in fixative is one container labeled with the patient's name and designated Hepatic flexure polyp. The specimen consists of two toney-pink polyps measuring 1.0 x 0.5 x 0.2 cm and 1.2 x 0.4 x 0.3cm. The entire specimen is submitted in one cassette. D. Received in fixative is one container labeled with the patient's name and designated Sigmoid colon polyp x2. The specimen consists of multiple irregular fragments of light toney soft tissue that in aggregate measure 1.3 x 0.5 x 0.1 cm. The specimen is totally submitted in one cassette. E. Received in fixative is one container labeled with the patient's name and designated Rectal polyp biopsy x2. The specimen consists of two irregular fragments of light toney soft tissue that in aggregate measure 0.4 x 0.2 x 0.1 cm. The specimen is totally submitted in one cassette. NORA/ 03/24/2024 TC:1 CPT:82136p5
--- NOTE | 2024-03-24 08:23 | PCM.POST.ANE ---
Anesthesia: Postop Eval I Current Vital Signs Temperature: 97 F Pulse Rate: 72 Blood Pressure: 156/79 Respiratory Rate: 16 Pulse Ox: 95 Oxygen Delivery Method: Room Air Assessment Airway patent: Yes Spontaneous unlabored respirations: Yes Mental status: Awake nausea: No Vomiting: No Anesthesia Complication: No Fluid Hydration Crystalloid volume administer (ml): 900 Total IV fluid infused: 900 Progress Note Anesthesia document: Postop Eval 1 completed: Yes
--- NOTE | 2024-03-24 08:30 | OP.EGD_ITS ---
Patient Name: Samantha High Procedure Date: 03/24/2024 7:20 AM Date of : 1955 Age: 68 Procedure: Upper GI endoscopy Indications: Iron deficiency anemia, Heartburn Providers: Kylah Aguero MD Medicines: Monitored Anesthesia Care Patient Profile: This is a 68 year old female. Complications: No immediate complications. Procedure: Pre-Anesthesia Assessment: - Prior to the procedure, a History and Physical was performed, and patient medications and allergies were reviewed. The patient's tolerance of previous anesthesia was also reviewed. The risks and benefits of the procedure and the sedation options and risks were discussed with the patient. All questions were answered, and informed consent was obtained. Prior Anticoagulants: The patient has taken no anticoagulant or antiplatelet agents. ASA Grade Assessment: Per anesthesia. After reviewing the risks and benefits, the patient was deemed in satisfactory condition to undergo the procedure. After obtaining informed consent, the endoscope was passed under direct vision. Throughout the procedure, the patient's blood pressure, pulse, and oxygen saturations were monitored continuously. The colonoscope was introduced through the mouth, and advanced to the second part of duodenum. The upper GI endoscopy was accomplished without difficulty. The patient tolerated the procedure well. Scope In: 7:21:45 AM Scope Out: 7:26:21 AM Total Procedure Duration Time 0 hours 4 minutes 36 seconds Findings: The Z-line was variable and was found 37 cm from the incisors. The examined duodenum was normal. One non-bleeding superficial gastric ulcer with no stigmata of bleeding was found in the gastric antrum. The lesion was 3 mm in largest dimension. Moderately erythematous mucosa without bleeding was found in the gastric antrum. Biopsies were taken with a cold forceps for histology. Biopsies were taken with a cold forceps for Helicobacter pylori cultures. The cardia and gastric fundus were normal on retroflexion. Impression: - Z-line variable, 37 cm from the incisors. - Normal examined duodenum. - Non-bleeding gastric ulcer with no stigmata of bleeding. - Erythematous mucosa in the antrum. Biopsied. Recommendation: - Await pathology results. - Discharge patient to home. - Resume previous diet. - Continue present medications. - Use Nexium (esomeprazole) 40 mg PO daily. Procedure Code(s): --- Professional --- 16522, Esophagogastroduodenoscopy, flexible, transoral; with biopsy, single or multiple Diagnosis Code(s): --- Professional --- K22.89, Other specified disease of esophagus K25.9, Gastric ulcer, unspecified as acute or chronic, without hemorrhage or perforation K31.89, Other diseases of stomach and duodenum D50.9, Iron deficiency anemia, unspecified R12, Heartburn CPT copyright 2021 [employer]. All rights reserved. The codes documented in this report are preliminary and upon supervisor plastic sheets review may be revised to meet current compliance requirements. MD Kylah Burch MD 03/24/2024 8:29:40 AM This report has been signed electronically. Number of Addenda: 0 Note Initiated On: 03/24/2024 7:20 AM
--- NOTE | 2024-03-24 08:30 | OP.CCLET_ITS ---
03/24/2024 Tani Grey MD [address] [place] [address] Re : Upper GI endoscopy procedure for Samantha High Dear Dr. Grey This procedure was performed on Sunday, March 24, 2024. My impressions and recommendations are as follows: Impressions : - Z-line variable, 37 cm from the incisors. - Normal examined duodenum. - Non-bleeding gastric ulcer with no stigmata of bleeding. - Erythematous mucosa in the antrum. Biopsied. Recommendations : - Await pathology results. - Discharge patient to home. - Resume previous diet. - Continue present medications. - Use Nexium (esomeprazole) 40 mg PO daily. My findings are described in the full procedure note, which is enclosed. If I can be of further assistance, please feel free to contact me at Doctor phone number(s): , Work: . Sincerely, MD Kylah Burch MD 03/24/2024 8:29:40 AM This report has been signed electronically.
--- NOTE | 2024-03-24 08:35 | OP.CCLET_ITS ---
03/24/2024 Tani Grey MD [address] [place] [address] Re : Colonoscopy procedure for Samantha High Dear Dr. Grey This procedure was performed on Sunday, March 24, 2024. My impressions and recommendations are as follows: Impressions : - Two 3 to 7 mm polyps in the sigmoid colon and at the hepatic flexure, removed with a hot snare. Resected and retrieved. - Four less than 5 mm polyps in the rectum, in the sigmoid colon and at the hepatic flexure, removed with a cold biopsy forceps. Resected and retrieved. - The examination was otherwise normal. Recommendations : - Discharge patient to home. - Resume previous diet. - Continue present medications. - Await pathology results. - Repeat colonoscopy in 3 - 5 years for surveillance based on pathology results. My findings are described in the full procedure note, which is enclosed. If I can be of further assistance, please feel free to contact me at Doctor phone number(s): , Work: . Sincerely, MD Kylah Burch MD 03/24/2024 8:35:02 AM This report has been signed electronically.
--- NOTE | 2024-03-24 08:35 | OP.COLON_ITS ---
Patient Name: Samantha High Procedure Date: 03/24/2024 7:26 AM Date of : 1955 Age: 68 Procedure: Colonoscopy Indications: High risk colon cancer surveillance: Personal history of colonic polyps, Incidental - Iron deficiency anemia, incomplete removal of polyp at hepatic flexure 2020 Providers: Kylah Aguero MD Medicines: Monitored Anesthesia Care Patient Profile: This is a 68 year old female. Last Colonoscopy: November 2020. Complications: No immediate complications. Procedure: Pre-Anesthesia Assessment: - Prior to the procedure, a History and Physical was performed, and patient medications and allergies were reviewed. The patient's tolerance of previous anesthesia was also reviewed. The risks and benefits of the procedure and the sedation options and risks were discussed with the patient. All questions were answered, and informed consent was obtained. Prior Anticoagulants: The patient has taken no anticoagulant or antiplatelet agents. ASA Grade Assessment: Per anesthesia. After reviewing the risks and benefits, the patient was deemed in satisfactory condition to undergo the procedure. - Prior to the procedure, a History and Physical was performed, and patient medications and allergies were reviewed. The patient's tolerance of previous anesthesia was also reviewed. The risks and benefits of the procedure and the sedation options and risks were discussed with the patient. All questions were answered, and informed consent was obtained. Prior Anticoagulants: The patient has taken no anticoagulant or antiplatelet agents. ASA Grade Assessment: Per anesthesia. After reviewing the risks and benefits, the patient was deemed in satisfactory condition to undergo the procedure. After I obtained informed consent, the scope was passed under direct vision. Throughout the procedure, the patient's blood pressure, pulse, and oxygen saturations were monitored continuously. The colonoscope was introduced through the anus and advanced to the cecum, identified by appendiceal orifice and ileocecal valve. The colonoscopy was somewhat difficult due to a tortuous colon. The patient tolerated the procedure well. The quality of the bowel preparation was good. Scope In: 7:29:03 AM Scope Withdrawal Time 0 hours 31 minutes 10 seconds Scope Out: 8:13:12 AM Total Procedure Duration Time 0 hours 44 minutes 9 seconds Findings: The perianal and digital rectal examinations were normal. Two semi-pedunculated polyps were found in the sigmoid colon and hepatic flexure. The polyps were 3 to 7 mm in size. These polyps were removed with a hot snare. Resection and retrieval were complete. Four sessile polyps were found in the rectum, sigmoid colon and hepatic flexure. The polyps were less than 5 mm in size. These polyps were removed with a cold biopsy forceps. Resection and retrieval were complete. The exam was otherwise without abnormality. Impression: - Two 3 to 7 mm polyps in the sigmoid colon and at the hepatic flexure, removed with a hot snare. Resected and retrieved. - Four less than 5 mm polyps in the rectum, in the sigmoid colon and at the hepatic flexure, removed with a cold biopsy forceps. Resected and retrieved. - The examination was otherwise normal. Recommendation: - Discharge patient to home. - Resume previous diet. - Continue present medications. - Await pathology results. - Repeat colonoscopy in 3 - 5 years for surveillance based on pathology results. Procedure Code(s): --- Professional --- 59904, Colonoscopy, flexible; with removal of tumor(s), polyp(s), or other lesion(s) by snare technique 17853, 59, Colonoscopy, flexible; with biopsy, single or multiple Diagnosis Code(s): --- Professional --- Z86.010, Personal history of colonic polyps D12.8, Benign neoplasm of rectum D12.5, Benign neoplasm of sigmoid colon D12.3, Benign neoplasm of transverse colon (hepatic flexure or splenic flexure) CPT copyright 2021 [employer]. All rights reserved. The codes documented in this report are preliminary and upon director business intelligence review may be revised to meet current compliance requirements. MD Kylah Burch MD 03/24/2024 8:35:02 AM This report has been signed electronically. Number of Addenda: 0 Note Initiated On: 03/24/2024 7:26 AM
[2024-03-24] MEDS: Pantoprazole Sodium 40 MG in 0.9% Normal Saline (100mL MB+) 100 ML 330 MG IV (08:56)
--- NOTE | 2024-03-24 09:38 | PCM.POSTANE2 ---
Anesthesia Postop Eval I Sum Postop Eval Completion status Anesthesia document: Postop Eval 1 completed: Yes Anesthesia Postop Eval I Summary Anesthesia Postop Eval I Summary: Anesthesia Postop Eval I: Assessment Summary Airway patent Yes 03/24/24 08:30 [email or web address] Spontaneous unlabored Yes 03/24/24 08:30 [email or web address] respirations Mental status Awake 03/24/24 08:30 [email or web address] nausea No 03/24/24 08:30 [email or web address] Vomiting No 03/24/24 08:30 [email or web address] Anesthesia Postop Eval I: Fluid Summary Crystalloid volume administer 900 03/24/24 08:30 [email or web address] (ml) Colloids volume administered ( ml) Blood Product volume administered (ml) Total IV fluid infused 900 03/24/24 08:30 [email or web address] Anesthesia Postop Eval I: Summary Notes Anesthesia Complication No 03/24/24 08:30 [email or web address] Anesthesia Complication Comment: Post-operative progress note Anesthesia: Postop Eval II Evaluation Mental status: Awake Pain Level: 0 nausea: No Vomiting: No Complications Anesthesia Complication: No
== END 2024-03-24 10:29 | disposition home or self-care (01) ==
LOC: EN 05:47 → AC 05:47
PROVIDERS: PCP Family Medicine Geriatric Medicine; Referring Provider Family Medicine Geriatric Medicine; Visit Provider Surgery
PROC: 0DJD8ZZ Inspection of Lower Intestinal Tract, Via Natural or Artificial Opening Endoscopic (ICD-10-PCS; CPT 45378; principal; 2024-03-24 07:25)
DX: D12.3 Benign neoplasm of transverse colon (principal); J43.9 Emphysema, unspecified; K21.9 Gastro-esophageal reflux disease without esophagitis; K62.1 Rectal polyp; E78.00 Pure hypercholesterolemia, unspecified; R19.5 Other fecal abnormalities; K25.9 Gastric ulcer, unspecified as acute or chronic, without hemorrhage or perforation; I10 Essential (primary) hypertension; Z79.811 Long term (current) use of aromatase inhibitors; F17.210 Nicotine dependence, cigarettes, uncomplicated; Z79.899 Other long term (current) drug therapy; D50.0 Iron deficiency anemia secondary to blood loss (chronic); Z86.010 Personal history of colon polyps; K29.70 Gastritis, unspecified, without bleeding; D12.5 Benign neoplasm of sigmoid colon
CPT/HCPCS: 45385; 43239; 45380; 88305; 88342; J7120; J2405

== ENCOUNTER → 2024-03-28 | Outpatient (CLI) | payer MEDICARE, SELFPAY ==
--- NOTE | 2024-03-28 14:44 | US_ITS ---
STUDY: THYROID ULTRASOUND REASON FOR EXAM: Female, 68 years old. Hyperparathyroidism TECHNIQUE: Ultrasound evaluation of the thyroid was performed with real-time and static kinsey-scale imaging. COMPARISON: Parathyroid scintigraphy 02/20/2024 FINDINGS: RIGHT LOBE: The right lobe of the thyroid gland measures 3.9 x 2.1 x 2.1 cm. There is a heterogeneous echotexture. Nodule 1:20 x 12 x 15 mm mixed cystic and solid isoechoic wider than tall ill-defined margin nodule with no echogenic foci (TR 2) in the lateral right lobe consistent with an adenoma. LEFT LOBE: The left lobe of the thyroid gland measures 2.3 x 0.7 x 0.6 cm. There is a heterogeneous echotexture. There are no demonstrated solid, cystic or complex lesions. ISTHMUS: The isthmus measures 2 mm thick. . The regional lymph nodes are normal. US/Thyroid IMPRESSION: Thyroiditis with a dominant adenoma in the right lobe. Electronically Signed: Demetris Barnett MD at 16:25 EDT ,
== END | disposition home or self-care (01) ==
LOC: US 14:42
PROVIDERS: PCP Family Medicine Geriatric Medicine; Referring Provider Surgery; Visit Provider Surgery
DX: E21.3 Hyperparathyroidism, unspecified (principal)
CPT/HCPCS: 76536

== ENCOUNTER → 2024-04-22 | Outpatient (CLI) | payer MEDICARE, SELFPAY ==
[2024-04-22 14:48] LABS: Hematocrit 37.1 % (37-47); Hemoglobin 11.5 g/dL (12.0-15.0); Mean Corpuscular Volume 77.3 fL (81-99); Platelet Count 244 K/mm3 (150-450); RBC Distribution Width CV 15.4 % (11.6-14.6); RBC Distribution Width SD 43.3 fl (35.1-43.9); White Blood Count 5.9 K/mm3 (4.4-11.0)
[2024-04-22 15:14] LABS: Albumin, Serum 4.1 g/dL (3.2-5.0); BUN 15 mg/dL (7-18); BUN/Creat Ratio 9.7 RATIO (10-20); Calcium,Total 9.9 mg/dL (8.5-10.1); Chloride 104 mmol/L (98-107); Creatinine, Serum 1.54 mg/dL (0.55-1.02); EST Glomerular Filtration Rate 36 mL/min (>60); Est Glom Filt Rate - Afr Amer 43 mL/min (>60); Ferritin 9 ng/mL (8-252); Glucose 84 mg/dL (74-106); Iron 38 ug/dL (50-170); Iron Binding Capacity,Total 521 ug/dL (250-450); PERCENT IRON SATURATION 7.3 % (15.0-55.0); Phosphorus 2.8 mg/dL (2.5-4.9); Sodium Level 139 mmol/L (136-145)
== END | disposition home or self-care (01) ==
LOC: POLAB3 13:49
PROVIDERS: PCP Family Medicine Geriatric Medicine; Visit Provider Internal Medicine Nephrology
DX: N17.9 Acute kidney failure, unspecified (principal); D50.9 Iron deficiency anemia, unspecified
CPT/HCPCS: 36415; 80069; 82728; 83540; 83550; 85027

== ENCOUNTER 2024-05-12 17:16 | Observation (INO) | payer MEDICARE, SELFPAY ==
--- NOTE | 2024-05-09 08:08 | EKG12_ITS ---
Test Reason : PRE OP Blood Pressure : / mmHG Vent. Rate : 090 BPM Atrial Rate : 090 BPM P-R Int : 148 ms QRS Dur : 082 ms QT Int : 362 ms P-R-T Axes : 053 -17 054 degrees QTc Int : 442 ms Normal sinus rhythm Low voltage QRS Inferior infarct , age undetermined Abnormal ECG Confirmed by Karan Alegre ([id number]), pictures editor CARLIE DORSEY ([id number]) on 05/12/2024 10:02:06 AM Referred By: Karan Chavira Confirmed By:Karan Alegre
[2024-05-09 08:59] LABS: Prothrombin Time (Protime)PT. 13.4 SECONDS (11.7-14.9)
[2024-05-09 09:00] LABS: Partial Thromboplast Time 26.1 Seconds (24.1-36.2)
[2024-05-09 09:20] LABS: AST(SGOT) 15 U/L (15-37); Alanine Aminotransfer ALT/SGPT 17 U/L (13-56); Albumin, Serum 3.8 g/dL (3.2-5.0); Alkaline Phosphatase 74 U/L (45-117); Bilirubin, Direct 0.11 mg/dL (0.00-0.30); Protein, Total 6.8 g/dL (6.4-8.2)
[2024-05-12] VITALS (14 sets, daily range): BP systolic 141–164; BP diastolic 75–89; PULSE 83–108; RESP 14–16; TEMP 36.1–37.4; O2SAT 93–98; BMI 25.0
--- NOTE | 2024-05-12 | IMM_PTH ---
PATIENT: MATY SHEN LOC: MS3 U#:[id number] AGE/SX: 69/F ROOM: [facility] RE05/12/[address]: Dr. Karan Chavira MD : 1955 BED: 1 DIS: 05/13/2024 SPEC #: [id number] RECD: 05/15/24 09:30 STATUS: SUSANNAH REQ #: [id number] SUSANNAH: 05/12/24 00:[address]: Karan Chavira DEPT: IMMUNOHISTOCHEMISTRY RECD BY: Sebastian Floyd ENTERED: 05/15/24 09:31 SP TYPE: IMMUNO OTHR DR: Dr. Tani Grey MD Tissues: C - Parathyroid Procedures: Thyroglobulin (add) PHYSICIAN & INSTITUTION [place] [address] SPECIMEN INFORMATION: Tissue Source: C- Left inferior parathyroid and thymic tissue Clinical Info: Hyperparathyroidism Specimen Number: [id number] CPT code: 98952 METHODOLOGY: Deparaffinized sections of prefer/formalin-fixed tissue or PAP/DQ stained slides are incubated with monoclonal/polyclonal antibodies/oligonucleotide probes. Localization is made via biotin free immunoperoxidase method. Appropriate controls are performed and reacted as expected. Results on target cell population are indicated in the following table: RESULTS: ANTIBODY / CLONE RESULT Block C Thyro (2H11+6E1) positive These tests were developed and their performance characteristics determined by [facility]. They may not have been cleared or approved by the U.S. Food and Drug Administration. The FDA has determined that such clearance or approval is not necessary. The above immunohistochemical/dualISH markers are ordered and reviewed by the Pathologist. INTERPRETATION: C. Left inferior parathyroid and thymic tissue, biopsy: Focal area with minute fragment of ectopic thyroid tissue. NORA/ 05/15/2024
[2024-05-12] MEDS: Lactated Ringers 1,000 ML 15 ML IV (10:10)
--- NOTE | 2024-05-12 10:18 | PRE.ANES_ITS ---
ASA Classification* ASA Classification ASA Classification: 3 Assessment & Plan Anesthesia* Anesthesia Assessment Anesthesia Assessment: Discussed sedation and/or anesthesia options, risks, benefits, and alternatives with patient/parents/legal guardian/POA. Questions invited. The patient/parents/legal guardian/POA seems to understand and agrees to proceed with anesthesia plan. Reviewed the physical assessment, medical history, allergy history and patient home medications list prior to surgery/procedure/anesthetic and documented any changes. Performed airway and anesthesia risk assessments. Anesthesia Type Anesthesia Type: General (see written pre anesthesia record for full assessment) Anesthesia Focused Assessment* Temperature: 97 F Pulse Rate: 98 Blood Pressure: 141/86 Respiratory Rate: 16 Pulse Ox: 98 Airway Assessment Mouth opens: >3 cm Mallampati Score: II Focused Labs Anesthesia Preop lab: CBC WBC 5.9 K/mm3 (4.4-11.0) 04/22/24 13:51 RBC 4.80 M/mm3 (4.2-5.4) 04/22/24 13:51 Hgb 11.5 g/dL (12.0-15.0) L 04/22/24 13:51 Hct 37.1 % (37-47) 04/22/24 13:51 Plt Count 244 K/mm3 (150-450) 04/22/24 13:51 CHEMISTRY Potassium 4.0 mmol/L (3.5-5.1) 04/22/24 13:51 Sodium 139 mmol/L (136-145) 04/22/24 13:51 Phosphorus 2.8 mg/dL (2.5-4.9) 04/22/24 13:51 BUN 15 mg/dL (7-18) 04/22/24 13:51 Creatinine 1.54 mg/dL (0.55-1.02) H 04/22/24 13:51 Glucose 84 mg/dL (74-106) 04/22/24 13:51 TSH 1.66 uIU/mL (0.358-3.74) 03/18/24 10:09 COAG PT 13.4 SECONDS (11.7-14.9) 05/09/24 08:32 Pre-Assessment Diagnosis/Proposed Procedure Planned Operative Procedure(s): PARATHYROIDECTOMY WITH PARATHYROID HORMONE WITH NERVE MONITORING Anesthesia History 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 When Was Last Pacemaker Check QUESTION #4 FULL TEXT: You/Your Family Experience fever (hyperthermia) with Anesthesia Last Oral Intake Last Oral intake: Last Oral Intake NPO since 07:30 05/12/24 09:58 Meds taken in AM with sips of Yes 05/12/24 09:58 water? 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 Female Yes 04/29/24 08:59 HX of Motion Sickness No 04/29/24 08:59 HX of N/V After Surgery No 04/29/24 08:59 Non-Smoker No 04/29/24 08:59 Duration of Surgery greater Yes 04/29/24 08:59 than 60 minutes Number of Risk Factors 2 04/29/24 08:59 PONV Score Moderate Risk 04/29/24 08:59 Height & Weight Height & Weight: Anesthesia: Height & Weight Height 5 ft 2 in 05/12/24 09:58 Weight: 62.142 kg 05/12/24 09:58 Body Mass Index (BMI) 25.0 05/12/24 09:58 Respiratory Assessment Respiratory Assessment - lavender farm worker: Respiratory Tract Infection Hx - lavender farm worker Hx Respiratory Tract Infection No 04/29/24 08:59 STOP Sleep Apnea STOP Sleep Apnea - lavender farm worker: STOP Sleep Apnea - lavender farm worker Hx Hypertension Yes: CONTROLLED WITH MED 04/29/24 08:59 Hx Sleep Apnea No 04/29/24 08:59 CPAP BIPAP Do you snore loudly (louder No 04/29/24 08:59 than talking or can be heard Do you often feel tired/ Yes 04/29/24 08:59 fatigued/ sleepy during daytime? Has anyone observed you stop No 04/29/24 08:59 breathing during sleep? STOP Results Positive 04/29/24 08:59 QUESTION #5 FULL TEXT : Do you snore loudly (louder than talking or can be heard through closed doors)? 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 Specify any problems Hx of Preganancy in last 3 No 04/29/24 08:59 Months Nurse Filling Out Transfusion DSCHRIBER 04/29/24 08:59 & Questions: Date: 04/29/24 04/29/24 08:59 Time: 09:01 04/29/24 08:59 Patient unable to answer at this time (ie. confused, unrespo /Reproduction History /Reproductive History - lavender farm worker: /Reproductive Hx- lavender farm worker Hx Now No 04/29/24 08:59 Gestational Age (in weeks): EDC: Hx Hx Para Hx Section SAB No 04/29/24 08:59 Active Medications Active Medications: Current Medications Generic Name Dose Route Start Last Admin Trade Name Freq PRN Reason Stop Dose Admin Lactated Ringer's 1,000 mls @ 15 mls/hr 05/12/24 09:45 05/12/24 10:10 IV 15 mls/hr .Q48H LUKAS Administration PFSH Medical History History of GI bleed Wears hearing aid Wears glasses Cancer Easy bruising History of ulceration Chronic constipation Gastric reflux Shortness of breath on exertion Emphysema, unspecified COPD (chronic obstructive pulmonary disease) History of pain when walking History of edema Hyperparathyroidism Abnormal ultrasound of breast Breast pain, right Encounter for screening for malignant neoplasm of lung Tobacco use disorder, continuous Encounter for screening for malignant neoplasm of lung in current smoker with 30 pack year history or greater Sciatic leg pain Wears dentures Post-menopausal Depression Anemia High cholesterol Back pain Chronic cough Hypertension Iron deficiency anemia due to chronic blood loss Osteopenia Invasive ductal carcinoma of right breast SOB (shortness of breath) Arthritis GERD (gastroesophageal reflux disease) Smoking greater than 30 pack years Emphysema lung Bronchitis Asthma Home Medications ?Medication ?Instructions ?Recorded ?Last Taken ?Type atorvastatin 20 mg tablet (Lipitor) 20 mg PO QHS 06/08/20 05/11/24 History albuterol sulfate 90 mcg/actuation 2 puff inhalation Q4H PRN 06/23/20 07/04/21 Rx aerosol inhaler shortness of breath or wheezing #1 device anastrozole 1 mg tablet 1 mg PO DAILY #90 tabs 04/02/23 03/24/24 Rx pravastatin 40 mg tablet 40 mg PO QHS 05/14/23 05/11/24 History budesonide 160 mcg-glycopyr 9 2 inh inhalation BID 12/06/23 Unknown History mcg-formot 4.8 mcg/actuation HFA inhaler (Breztri Aerosphere) cholecalciferol (vitamin D3) 125 125 mcg PO DAILY 12/06/23 Unknown History mcg (5,000 unit) capsule magnesium 250 mg tablet 250 mg PO DAILY 12/06/23 Unknown History polysaccharide iron complex 150 mg 150 mg PO QDAY 02/07/24 Unknown History iron capsule potassium chloride 20 mEq 20 meq PO QDAY 02/07/24 Unknown History tablet,extended release amlodipine 5 mg tablet 5 mg PO DAILY 03/19/24 05/12/24 07:30 History sucralfate 1 gram tablet 1 g PO 4X/DAY #56 tabs 03/24/24 Unknown Rx bupropion HCl (smoking deter) 150 150 mg PO BID 04/29/24 05/11/24 History mg tablet,12 hr sustained-release(smoking deterrent) omeprazole 40 mg capsule,delayed 40 mg PO DAILY 04/29/24 05/11/24 History release Allergy/AdvReac Type Severity Reaction Status Date / Time latex AdvReac Intermediate rash Verified 05/12/24 09:56 Penicillins AdvReac Intermediate Rash Verified 05/12/24 09:56 Family History Mother Diabetes Hypertension Gastric ulcer Hyperlipidemia CVA (cerebral vascular accident) Father Diabetes COPD (chronic obstructive pulmonary disease) Hypertension Prostate cancer Aunt Breast cancer Surgical History Hx of colonoscopy Hx of fusion of cervical spine Status post right breast lumpectomy History of tonsillectomy and adenoidectomy Hx of colonoscopy (~2019) H/O tubal ligation Social History Smoking Status: Current some day smoker tobacco type: cigarettes Tobacco: How many years used: 45 how long ago did patient quit smoking: down to only smoking 4 cigarettes/day second hand exposure: Yes alcohol intake: current alcohol intake frequency: holidays/special occasions only substance use type: marijuana caffeine: Yes what type of physical activity do you participate in: none frequency: does not exercise laine/sikh: None seatbelt use: always do you feel safe at home: Yes Review of Systems (Anesthesia) ROS Narrative System reviewed and no additional complaints, except as documented.
[2024-05-12 10:27] LABS: PTHIN 63.3 pg/mL (18.4-80.1)
--- NOTE | 2024-05-12 10:53 | PCM.HP.BLA ---
History and Physical Date of Admission: 05/12/24 Date of Service: 04/11/24 MR#: [id number] Acct: [id number] Name: MATY SHEN Rep #: [id number] : 1955 Provider: Dr. Karan Chavira MD Age/Sex: 69/F Location: [facility] [place] Status: Signed Intake Vital Signs 03/24/2406:37 Height 5 ft 2 in Intake Visit Reasons: DISCUSS RESULTS Chief Complaint: Hyperparathyroidism Allergies latex Adverse Reaction (Intermediate, Verified 04/11/24 14:08) rashPenicillins Adverse Reaction (Intermediate, Verified 04/11/24 14:08) Rash Medications ?Medication ?Instructions ?Recorded ?Confirmed ?Type atorvastatin 20 mg tablet (Lipitor) 20 mg PO QHS 06/08/20 04/11/24 History albuterol sulfate 90 mcg/actuation 2 puff inhalation Q4H PRN 06/23/20 04/11/24 Rx aerosol inhaler shortness of breath or wheezing #1 device anastrozole 1 mg tablet 1 mg PO DAILY #90 tabs 04/02/23 04/11/24 Rx pravastatin 40 mg tablet 40 mg PO QHS 05/14/23 04/11/24 History budesonide 160 mcg-glycopyr 9 2 inh inhalation BID 12/06/23 04/11/24 History mcg-formot 4.8 mcg/actuation HFA inhaler (Breztri Aerosphere) cholecalciferol (vitamin D3) 125 125 mcg PO DAILY 12/06/23 04/11/24 History mcg (5,000 unit) capsule magnesium 250 mg tablet 250 mg PO DAILY 12/06/23 04/11/24 History polysaccharide iron complex 150 mg 150 mg PO QDAY 02/07/24 04/11/24 History iron capsule potassium chloride 20 mEq 20 meq PO QDAY 02/07/24 04/11/24 History tablet,extended release amlodipine 5 mg tablet 5 mg PO DAILY 03/19/24 04/11/24 History esomeprazole magnesium 40 mg 40 mg PO DAILY #30 caps 03/24/24 04/11/24 Rx capsule,delayed release sucralfate 1 gram tablet 1 g PO 4X/DAY #56 tabs 03/24/24 04/11/24 Rx Have you fallen in the past year?: No PFSH Medical History Wears hearing aid Wears glasses Cancer Easy bruising History of ulceration Chronic constipation Gastric reflux Shortness of breath on exertion Emphysema, unspecified COPD (chronic obstructive pulmonary disease) History of pain when walking History of edema Hyperparathyroidism Abnormal ultrasound of breast Breast pain, right Encounter for screening for malignant neoplasm of lung Tobacco use disorder, continuous Encounter for screening for malignant neoplasm of lung in current smoker with 30 pack year history or greater Sciatic leg pain Wears dentures Post-menopausal Depression Anemia High cholesterol Back pain Chronic cough Hypertension Iron deficiency anemia due to chronic blood loss Osteopenia Invasive ductal carcinoma of right breast SOB (shortness of breath) Arthritis GERD (gastroesophageal reflux disease) Smoking greater than 30 pack years Emphysema lung Bronchitis Asthma Surgical History Hx of fusion of cervical spine Status post right breast lumpectomy History of tonsillectomy and adenoidectomy Hx of colonoscopy (~2019) H/O tubal ligation Family History Mother Diabetes Hypertension Gastric ulcer Hyperlipidemia CVA (cerebral vascular accident)Father Diabetes COPD (chronic obstructive pulmonary disease) Hypertension Prostate cancerAunt Breast cancer Social History Smoking Status: Current every day smoker tobacco type: cigarettes Tobacco: How many years used: 45 how long ago did patient quit smoking: down to only smoking 4 cigarettes/day second hand exposure: Yes alcohol intake: current alcohol intake frequency: holidays/special occasions only substance use type: marijuana caffeine: Yes what type of physical activity do you participate in: none frequency: does not exercise laine/taoism: None seatbelt use: always do you feel safe at home: Yes HPI HPI HPI: Patient is a 69-year-old female who presents for consultation for possible hyperparathyroidism. They are referred from Dr. Grey. This represents her second consultation visit after initial consultation on 03/17/2024. Patient presents today with her . She denies any new interval health updates and presents for review of laboratories and repeat densitometry testing that showed evidence of osteopenia. Below is recapitulated from patient's initial consultation visit for ease of review: She shares that she has had trouble with constipation and diarrhea for a long time. She also shares that her constipation has become more of the dominant symptom in recent years and that she is actually pending double endoscopy with Dr. Aguero on 03/24/2024. She shares that her calcium was observed to be high in January along with some low iron and low vitamin D. Patient has a history of osteopenia diagnosed on her densitometry chest on 08/14/2023. Patient has no history of pathologic fractures, but shares that she did have a fracture of a bone in her foot simply from stepping in a hole in her yard about 2 years ago. Patient reports no history of kidney stones. Patient is present a dentulous but states that this is secondary to not taking care of her teeth as a child. Patient reports a history of brittle fingernails. Patient medical record bears a history of GERD, but she denies any recent troubles with reflux or heartburn. Patient has no history of hypertension. Additional symptoms include: Weight loss due to abdominal cramps and constipation, acute on chronic fatigue, arthritic pains, muscle aches, and muscle weakness. She also shares that she has a history of depression but this has remained stable on Effexor. Patient has no history of prior radiation exposure. Patient has no family history of other endocrinopathies Patient does not have a diet high in dairy and she shares that she will simply only consume maybe a little [place] cheese and ice cream. Patient's current labs are calcium: 9.6 mg/dL 02/25/2024 (range of 9.1-10.5), Vitamin D: 81 ng/mL 01/30/2024, Ionized calcium: [Value]mg/dL [date], PTH: 115 pg/mL 02/29/2024 (range of 27-115.7), Phosphorus: [Value] [date] Current medications include: Vitamin D supplementation. Imaging has been done sestamibi 02/20/2024 and was read as abnormal and suggested possible adenoma in the left neck. Patient has had DEXA imaging 08/14/2023 and showed osteopenia. Patient has had renal imaging 01/03/2024 which showed probable left nonobstructing nephrolithiasis. Exam Const General: cooperative and anxious Orientation: alert, awake and oriented x3 Neck Other: Ultrasound exam was made of patient's neck and I confirmed the presence of a dominant right-sided thyroid nodule that is isoechoic and a mixed composition. Further, on the left identify what I believed to be a 0.6 cm hypoechoic lesion just posterior to the mid/inferior pole of the left thyroid lobe. Color Doppler confirms that there is no flow through this structure. Assessment and Plan Assessment and Plan (1) Hyperparathyroidism: Status: Acute Comment: Patient is 68-year-old female who is under evaluation for possible hyperparathyroidism. She was recently noted to have an elevated PTH as workup was apparently underway for unexplained constipation that has led to some significant weight loss and has interfered with patient's quality of life in a significant manner. I share a detailed conversation with both and Mrs. Shen related to the diagnosis of hyperparathyroidism and how this is a biochemical 1 that references values for vitamin D, calcium and PTH simultaneously. I shared that there remains some skepticism about the standing of this diagnosis until we can fully demonstrate this biochemically with her labs. I also discussed the surgical indications for hyperparathyroidism and the process for localization. Mrs. Shen would appear to be potentially symptomatic from this diagnosis but it is not completely clear how many surgical indications she has while it is apparent that she has an ongoing workup for newly?appreciated chronic kidney disease. Furthermore, there is cause to be extra cautious with proceeding with surgery given her probable increased risk related to a remote history of anterior cervical disc fusion. There is suggestion of a adenoma in the left neck. I have stressed to patient and her that we must also understand, fully as possible, the stance of her thyroid and whether or not any intervention is warranted for it. Thus I have recommended the following Update 04/11/2024: Patient's repeat PTH, calcium, and vitamin D confirm a diagnosis of primary hyperparathyroidism and reflect more than adequate supplementation of patient's vitamin D in particular. Her PTH is significantly elevated over her initial level and now is over 400 on laboratory testing. Lastly, patient's thyroid ultrasound simply shows a dominant TI-RADS 2 lesion which is not indicated for biopsy on the right. I held a lengthy conversation with patient and her reviewing the pathophysiology of hyperparathyroidism and our indication to pursue surgery?being both a history of osteopenia as well as newly appreciated kidney disease. There does appear to be localization to the left side as I apply bedside ultrasound and identify a candidate lesion represented is a hypoechoic focus deep to the mid polar region of the left thyroid lobe. Unfortunately, patient does have a remote history of prior anterior cervical disc fusion about 30 years ago and her incision directly overlies the area of interest. I shared with patient and her that this does increase the operative complexity. They indicate an interest in proceeding as recommended with the operation and I thus detailed to them the specific risks of the procedure including risks of recurrent laryngeal nerve injury and hypoparathyroidism. I used this as a context for describing how intraoperative nerve and PTH monitoring can be employed to reduce these risks. Hand drawings were made aware relevant to try to facilitate understanding. Patient and her were given opportunity to ask questions and all were addressed to their satisfaction. Plan: Parathyroidectomy with intraoperative nerve and PTH monitoring. Outpatient disposition planned, however, patient and her were made aware that this could require inpatient observation if multi gland disease is identified intraoperatively. For now there appears to be localization to the left. I have examined the patient the following changes are noted: Patient denies any changes to her health history, however, she has had 2 PTH levels drawn (including this morning) since her last encounter. Interestingly these have down trended to 92 and now 63 this morning. Upon receiving these results I had a brief discussion with her underground electrician as to what she might surmise be the cause of the spontaneous downtrend. After reviewing patient's labs and the erratic nature of these results from the same laboratory where unable to come up with a cogent explanation. I discussed this information frankly with Mrs. Shen and shared that this leaves us in a bit of a kinsey area as to what the recommended treatment course would be. However, I offered that we could proceed with surgery and simply closely scrutinized the left side of her neck for any abnormal glands (the laterality given by her sestamibi) and take them as planned. I did stress I would not look to increase her risk beyond this level of exploration. Patient states that it is her wish to proceed as planned today as she has a number of other things going on in her life and a set time aside for surgery today. Therefore, we will proceed to the operating room as planned.
[2024-05-12 12:29] LABS: PTHIN 104.2 pg/mL (18.4-80.1)
--- NOTE | 2024-05-12 12:53 | PARA_PTH ---
PATIENT: MATY SHEN LOC: MS3 U#:[id number] AGE/SX: 69/F ROOM: [facility] RE05/12/[address]: Dr. Karan Chavira MD : 1955 BED: 1 DIS: 05/13/2024 SPEC #: [id number] RECD: 05/12/24 12:55 STATUS: SUSANNAH REBrennan #: [id number] SUSANNAH: 05/12/24 12:[address]: Karan Chavira DEPT: SURGICAL PATHOLOGY RECD BY: Valentina Campbell ENTERED: 05/12/24 15:24 SP TYPE: PARATHY MARC DR: Dr. Tani Grey MD Tissues: A - Parathyroid B - Parathyroid C - Parathyroid D - Parathyroid E - Parathyroid Procedures: Frozen Section (charge) Surgery Specimen Level IV HEADER OPERATION: Left superior and inferior parathyroid PRE-OP DIAGNOSIS: Hyperparathyroidism TISSUE SUBMITTED: A- Left superior parathyroid, B- Left inferior parathyroid, C- Left inferior parathyroid, D- Left superior parathyroid and thymic tissue,E- Thymic tissue FROZEN SECTION DIAGNOSIS A. Left superior parathyroid tissue, biopsy: Parathyroid tissue. B. Left inferior parathyroid tissue, biopsy: Parathyroid tissue, mildly hyperplastic (0.014gm). Case has been reviewed in consultation with Dr. Lopez who concurs with the above diagnosis. IDC:[facility]/ 05/12/2024 C. Left inferior parathyroid and thymic tissue, biopsy: No parathyroid tissue identified. This case also discussed with Dr. Chavira in person. D. Left superior parathyroid gland, biopsy: Hyperplastic parathyroid tissue. Case has been reviewed in consultation with Dr. Khan who concurs with the above diagnosis. [facility]. 05/12/2024 MICROSCOPIC DIAGNOSIS A. Left superior parathyroid tissue, biopsy: Mildly hyperplastic parathyroid tissue (0.010gm). B. Left inferior parathyroid tissue, biopsy: Mildly hyperplastic parathyroid tissue (0.014gm). A piece of adipose tissue. C. Left inferior parathyroid and thymic tissue, biopsy: Bening thymic tissue. A small fragment of parathyroid gland tissue. A small focus of ectopic thyroid tissue. See comment. D. Left superior parathyroid, biopsy: Mildly hyperplastic parathyroid tissue (0.035gm). E. Thymic tissue: A piece of adipose tissue. [facility] 05/14/2024 COMMENT C. The specimen predominantly consists of thymic tissue. Parathyroid gland tissue measures 0.4 x 0.4 cm, measured microscopically. Immunohistochemistry ([id number]) for thyroglobulin supports the diagnosis of a small focus of ectopic thyroid tissue. This case is discussed with Dr. Chavira on 05/15/24. Case has been reviewed in consultation with Dr. Lopez who concurs with the above diagnosis. IDC:[facility] MICROSCOPIC DESCRIPTION Slides are reviewed. GROSS DESCRIPTION A. Received fresh for frozen section diagnosis labeled with the patient's name is a specimen designated Left superior parathyroid. The specimen consists of a piece of toney-pink soft tissue measuring 0.2 x 0.2 x 0.1cm and weighing 0.010gm. The entire specimen is submitted for frozen section diagnosis in one cassette. [facility] 05/12/2024 B. Received fresh for frozen section diagnosis labeled with the patient's name is a specimen designated Left inferior parathyroid. The specimen consists of two pieces of toney-pink soft tissue measuring in aggregate 0.3 x 0.2 x 0.1cm and weighing 0.014gm. Entire specimen is submitted for frozen section diagnosis in one cassette. . 05/12/2024 C. Received fresh for frozen section diagnosis labeled with the patient's name is a specimen designated Left inferior parathyroid and thymic tissue. The specimen consists of a piece of soft tissue measuring 2.0 x 2.0 x 0.3cm and weighing 0.985gm. The entire specimen is submitted for frozen section diagnosis. [facility] 05/13/2024 D. Received fresh for frozen section diagnosis labeled with the patient's name is a specimen designated Left superior parathyroid. The specimen consists of a piece of toney, pink soft tissue weighing 0.035gm and measuring 0.5 x 0.4 x 0.2cm. The entire specimen is submitted in one cassette for frozen section diagnosis. 05/13/2024 E. Received in fixative is one container labeled with the patient's name and designated Thymic tissue. The specimen consists of a piece of toney-light brown soft tissue measuring in aggregate 0.7 x 0.4 x 0.1cm. The entire specimen is submitted in one cassette. [facility]/ 05/13/2024 TC:5 CPT:55482y0,11013f9
[2024-05-12 14:47] LABS: PTHIN 98.5 pg/mL (18.4-80.1)
[2024-05-12 15:06] LABS: PTHIN 66.4 pg/mL (18.4-80.1)
[2024-05-12 15:06] LABS: PTHIN 126.6 pg/mL (18.4-80.1)
[2024-05-12 15:19] LABS: PTHIN 151.8 pg/mL (18.4-80.1)
[2024-05-12] MEDS: Bupivacaine 0.25% 30 ML Vial (15:50)
--- NOTE | 2024-05-12 15:58 | OP.PCM_ITS ---
Report of Operation Date of Procedure: 05/12/24 Pre-Operative Diagnosis: 1. Primary hyperparathyroidism 2. History of anterior cervical disc fusion (left) Post-Operative Diagnosis: Same Surgery/Procedure Performed:: 1. Parathyroidectomy (left superior and inferior) 2. Cervical thymectomy The above was completed with the use of intraoperative nerve and PTH monitoring Description of Surgical Findings:: ? Diminutive left thyroid lobe with scarring between the lobe and the carotid sheath laterally ? Relatively normal?sized parathyroid glands of the left superior and inferior positions (the latter extent was difficult to fully estimate given that it arose from the thyroid thymic ligament) ? Intact nerve signal from the left recurrent laryngeal nerve using Nims Surgeon: Karan Chavira pet store merchandiser: Moiz Rao Type of Anesthesia: General/Supplemental Anesthesiologist: Erich Lino Specimen's removed: 1. Left superior parathyroid frozen section (confirmed as parathyroid tissue) 2. Left inferior parathyroid frozen section (confirmed as parathyroid tissue) 3. Thymic tissue and remainder of inferior parathyroid 4. Remainder of superior parathyroid (hyperplastic parathyroid weighing 35 mg) 5. Thymic tissue for permanent Estimated Blood Loss (mL): 20 Description of Procedure: After appropriate identification in the preoperative holding area the patient was brought to the operating room where she was positioned supine on the operating room table. There she was induced with general endotracheal anesthetic. Of note, a preoperative PTH had been obtained and was reported as 63.3. Patient was then intubated using a Nims tube and glide a scope to ensure coaptation between the vocal cords and the Nims tube electrodes. A resistance check confirmed appropriate function of the tube after the electrodes were properly connected to the monitoring box. Patient was then positioned in cervical extension, but adequately supporting the occiput. She was prepped and draped in the usual sterile fashion and a formal timeout followed to confirm patient and the procedure to be performed. A local block was produced with infiltration of local anesthetic and a 4cm transverse incision was made. This was deepened with the use of electrocautery through the platysma and subplatysmal flaps were raised superiorly and inferiorly. The strap muscles were from one another as I proceeded with dissection laterally towards the patient's left internal jugular vein. Once this structure was sufficiently exposed I asked anesthesia to place patient in Trendelenburg positioning and I obtained a baseline central vein PTH level. This ultimately returned at 104.2. For the interim I returned to the patient's neck and the strap muscles were divided along their raphe with electrocautery. I first inspected the inferior pole which appeared densely adherent to the underlying trachea and was not easily mobilized. Therefore I sought to identify the inferior thyroid artery and searched along the adipose tissue deep to the thyroid gland for a possible parathyroid. No candidates were initially in view so I moved more superiorly with my inspection where I found a moderately pigmented parathyroid gland in the tracheoesophageal groove. This was not markedly enlarged so I chose to biopsy a tip of the gland diametrically opposed to the gland's vascular pedicle using a medium titanium vascular clip to clearly geo this position. This was sent for frozen section and shortly after pathology called into the room to confirm this was indeed parathyroid tissue. While we awaited this result I extended my exploration inferiorly and adjacent to the trachea where I delineated the thyroid thymic ligament from the adjacent esophagus. This ligament was predominantly composed of fatty/involuted thymic tissue but within the m idportion of this structure there seemed to be a separate structure with an oval shape potentially representing a parathyroid gland. Upon further dissection I was grossly convinced this was the inferior parathyroid but, again, this gland was not markedly enlarged so I elected to send a frozen section for confirmation. The same technique was used for biopsy as had been used at the superior position. Ultimately pathology did confirm this too represented parathyroid tissue. With neither gland markedly enlarged I asked pathology to render their opinion as to which gland appeared more hyperplastic. They stated that it was not definitively obvious to them microscopically given the small sample size and methodology for fixation, however, they favored the inferior gland. Therefore I returned to the thyroid thymic ligament and decided to remove the parathyroid and the surrounding thymic tissue as it was unclear inferiorly where those 2 structures were delineated from 1 another. I set about carefully circumferentially dissecting this tissue from the trachea medially and the presumed location of the recurrent laryngeal nerve inferiorly. I placed some traction on the tissue as well so as to elevate it from beneath its position deep to the clavicular head. Once this thyroid thymic tissue was free of the surrounding soft tissue attachments it was sharply amputated free and was passed off the field for frozen section confirmation. We then returned to the left internal jugular ex vivo where blood draws were made with a 22-gauge needle and syringe at 5, 10 and 15 minutes. Upon receipt of the third specimen, pathology telephoned the room to notify us that did not see any parathyroid tissue when they sectioned the specimen but only found fat. I attempted to share with them that I had sent them, knowingly, additional involuted thymic tissue but tried to direct them towards the known parathyroid tissue. When it proved that this explanation was going to be more difficult verbally than in-person I elected to break scrub and proceed to the pathology department to discuss with pathology directly. After providing clarification I returned to the operating room as we awaited the PTH results, I irrigated the surgical cavity with sterile water examined for hemostasis. Finding this intact, I also developed the plane between the thyroid capsule and the strap muscles to try to identify the recurrent laryngeal nerve. This was successful and I grossly identified the nerve; shortly thereafter I confirmed an intact signal from left recurrent laryngeal nerve using our Nims mo nitor. It was unclear during this time whether the laboratory had received all of our PTH levels so I chose to draw a fourth PTH. Gradually these results returned as follows: First PTH after removal of parathyroid gland: 98.5 Second PTH after removal of parathyroid gland 67.6 Third PTH after removal of parathyroid gland 126.6 Fourth PTH l after removal of parathyroid gland 151.8 With the elevation after removal of the left inferior gland I interpreted this to mean that the adenomatous gland remained in vivo and I did not want to cause need for repeat reoperative surgery on the left side (given patient's history of prior ACDF) so I proceeded to remove the previously?identified left superior gland. Having determined preoperatively that we would not proceed for a 4 gland exploration based on patient's initial normal PTH, the case was terminated and hemostasis was once again confirmed in the surgical bed. Then I performed closure of the neck in layers. The strap muscles were run with a 3-0 Vicryl suture to reapproximate the raphe, but a gap was left in the inferior most portion of the strap muscles. Then the platysmal layer was reapproximated with interrupted 3-0 Vicryl. Additional local anesthetic was instilled. The skin was closed using a running 4-0 Monocryl in a subcuticular fashion. Steri-Strips and Telfa OpSite was applied as a dressing. Patient was then awoken from general anesthetic and taken to PACU for ongoing recovery. Complications None Admit VTE Documentation VTE Present on Admission: Yes VTE Mechan Device Prophylaxis: SCD's
--- NOTE | 2024-05-12 16:12 | PCM.POST.ANE ---
Anesthesia: Postop Eval I Current Vital Signs Temperature: 99.3 F Pulse Rate: 108 Blood Pressure: 164/80 Respiratory Rate: 16 Pulse Ox: 95 Oxygen Delivery Method: Room Air Assessment Airway patent: Yes Spontaneous unlabored respirations: Yes Mental status: Awake and Calm nausea: No Vomiting: No Anesthesia Complication: No Fluid Hydration Crystalloid volume administer (ml): 1,500 Total IV fluid infused: 1,500 Progress Note Anesthesia document: Postop Eval 1 completed: Yes
--- NOTE | 2024-05-12 16:13 | POSTOPAN2_ITS ---
Anesthesia Postop Eval I Sum Postop Eval Completion status Anesthesia document: Postop Eval 1 completed: Yes Anesthesia Postop Eval I Summary Anesthesia Postop Eval I Summary: Anesthesia Postop Eval I: Assessment Summary Airway patent Yes 05/12/24 16:13 DROP WIRE STRINGER.MDOT Spontaneous unlabored Yes 05/12/24 16:13 DROP WIRE STRINGER.MDOT respirations Mental status Awake,Calm 05/12/24 16:13 DROP WIRE STRINGER.MDOT nausea No 05/12/24 16:13 DROP WIRE STRINGER.MDOT Vomiting No 05/12/24 16:13 DROP WIRE STRINGER.MDOT Anesthesia Postop Eval I: Fluid Summary Crystalloid volume administer 1,500 05/12/24 16:13 DROP WIRE STRINGER.MDOT (ml) Colloids volume administered ( ml) Blood Product volume administered (ml) Total IV fluid infused 1,500 05/12/24 16:13 DROP WIRE STRINGER.MDOT Anesthesia Postop Eval I: Summary Notes Anesthesia Complication No 05/12/24 16:13 DROP WIRE STRINGER.MDOT Anesthesia Complication Comment: Post-operative progress note Anesthesia: Postop Eval II Evaluation Mental status: Awake and Calm Pain Level: 0 nausea: No Vomiting: No Complications Anesthesia Complication: No
--- NOTE | 2024-05-12 16:13 | PCM.POSTANE2 ---
Anesthesia Postop Eval I Sum Postop Eval Completion status Anesthesia document: Postop Eval 1 completed: Yes Anesthesia Postop Eval I Summary Anesthesia Postop Eval I Summary: Anesthesia Postop Eval I: Assessment Summary Airway patent Yes 05/12/24 16:13 DISPUTE COORDINATOR.MDOT Spontaneous unlabored Yes 05/12/24 16:13 DISPUTE COORDINATOR.MDOT respirations Mental status Awake,Calm 05/12/24 16:13 DISPUTE COORDINATOR.MDOT nausea No 05/12/24 16:13 DISPUTE COORDINATOR.MDOT Vomiting No 05/12/24 16:13 DISPUTE COORDINATOR.MDOT Anesthesia Postop Eval I: Fluid Summary Crystalloid volume administer 1,500 05/12/24 16:13 DISPUTE COORDINATOR.MDOT (ml) Colloids volume administered ( ml) Blood Product volume administered (ml) Total IV fluid infused 1,500 05/12/24 16:13 DISPUTE COORDINATOR.MDOT Anesthesia Postop Eval I: Summary Notes Anesthesia Complication No 05/12/24 16:13 DISPUTE COORDINATOR.MDOT Anesthesia Complication Comment: Post-operative progress note Anesthesia: Postop Eval II Evaluation Mental status: Awake and Calm Pain Level: 0 nausea: No Vomiting: No Complications Anesthesia Complication: No
[2024-05-12 16:54] LABS: PTHIN 42.2 pg/mL (18.4-80.1)
[2024-05-12 17:52] LABS: HIV - WCH Non-Reactive (Nonreactive); Hepatitis B Surface Antibody Non-Reactive; Hepatitis B Surface Antigen Non-Reactive (Nonreactive); Hepatitis C Antibody Non-Reactive (Nonreactive)
[2024-05-12] MEDS: 0.9% Normal Saline (1000mL) 1,000 ML 75 ML IV (17:59)
[2024-05-12] MEDS: Acetaminophen 500 MG Tablet PO (20:04)
[2024-05-12] MEDS: Atorvastatin Calcium 20 MG Tablet PO (20:14)
[2024-05-13] VITALS: O2SAT 98
[2024-05-13 01:47] VITALS: BP 145/75; PULSE 75; RESP 16; TEMP 36.8; O2SAT 96
[2024-05-13 05:47] VITALS: BP 148/74; PULSE 86; RESP 16; TEMP 36.8; O2SAT 98
--- NOTE | 2024-05-13 07:29 | POSTOPAN2_ITS ---
Anesthesia Postop Eval I Sum Postop Eval Completion status Anesthesia document: Postop Eval 1 completed: Yes Anesthesia Postop Eval I Summary Anesthesia Postop Eval I Summary: Anesthesia Postop Eval I: Assessment Summary Airway patent Yes 05/12/24 16:13 SUPERVISOR SCRAP PREPARATION.MDOT Spontaneous unlabored Yes 05/12/24 16:13 SUPERVISOR SCRAP PREPARATION.MDOT respirations Mental status Awake,Calm 05/12/24 16:13 SUPERVISOR SCRAP PREPARATION.MDOT nausea No 05/12/24 16:13 SUPERVISOR SCRAP PREPARATION.MDOT Vomiting No 05/12/24 16:13 SUPERVISOR SCRAP PREPARATION.MDOT Anesthesia Postop Eval I: Fluid Summary Crystalloid volume administer 1,500 05/12/24 16:13 SUPERVISOR SCRAP PREPARATION.MDOT (ml) Colloids volume administered ( ml) Blood Product volume administered (ml) Total IV fluid infused 1,500 05/12/24 16:13 SUPERVISOR SCRAP PREPARATION.MDOT Anesthesia Postop Eval I: Summary Notes Anesthesia Complication No 05/12/24 16:13 SUPERVISOR SCRAP PREPARATION.MDOT Anesthesia Complication Comment: Post-operative progress note Anesthesia: Postop Eval II Evaluation Mental status: Awake Pain Level: 0 nausea: No Vomiting: No
--- NOTE | 2024-05-13 07:29 | PCM.POSTANE2 ---
Anesthesia Postop Eval I Sum Postop Eval Completion status Anesthesia document: Postop Eval 1 completed: Yes Anesthesia Postop Eval I Summary Anesthesia Postop Eval I Summary: Anesthesia Postop Eval I: Assessment Summary Airway patent Yes 05/12/24 16:13 CLIENT APPLICATION SUPPORT SPECIALIST.MDOT Spontaneous unlabored Yes 05/12/24 16:13 CLIENT APPLICATION SUPPORT SPECIALIST.MDOT respirations Mental status Awake,Calm 05/12/24 16:13 CLIENT APPLICATION SUPPORT SPECIALIST.MDOT nausea No 05/12/24 16:13 CLIENT APPLICATION SUPPORT SPECIALIST.MDOT Vomiting No 05/12/24 16:13 CLIENT APPLICATION SUPPORT SPECIALIST.MDOT Anesthesia Postop Eval I: Fluid Summary Crystalloid volume administer 1,500 05/12/24 16:13 CLIENT APPLICATION SUPPORT SPECIALIST.MDOT (ml) Colloids volume administered ( ml) Blood Product volume administered (ml) Total IV fluid infused 1,500 05/12/24 16:13 CLIENT APPLICATION SUPPORT SPECIALIST.MDOT Anesthesia Postop Eval I: Summary Notes Anesthesia Complication No 05/12/24 16:13 CLIENT APPLICATION SUPPORT SPECIALIST.MDOT Anesthesia Complication Comment: Post-operative progress note Anesthesia: Postop Eval II Evaluation Mental status: Awake Pain Level: 0 nausea: No Vomiting: No
[2024-05-13 07:33] LABS: Magnesium 1.9 mg/dL (1.6-2.6)
[2024-05-13 08:40] LABS: Calcium,Total 9.2 mg/dL (8.5-10.1)
[2024-05-13 08:56] LABS: PTHIN 56.4 pg/mL (18.4-80.1)
[2024-05-13] MEDS: Calcium Carb/Vitamin D 1 TABLET Tablet PO (09:10)
--- NOTE | 2024-05-13 10:52 | PCM.PN.SRG ---
Subjective Subjective Patient evaluated this morning at bedside. She denies any incisional pain. She notes minimal amount of sore throat. She is tolerating her current diet. She denies any numbness or tingling of the hand or fingers. Objective Data Objective Data Vital Signs: Vital Signs Temp Pulse Resp BP Pulse Ox O2 Del Method O2 Flow Rate 98.2 F 86 16 148/74 H 98 Room Air 2 05/13/24 05:47 05/13/24 05:47 05/13/24 05:47 05/13/24 05:47 05/13/24 05:47 05/13/24 09:15 05/12/24 19:47 Oxygen Flow Rate (L/min) 2 Oxygen Delivery Method Room Air Weight: 137 lb Body Mass Index (BMI) 25.0 Intake & Output: Intake and Output for Last 24 Hours 05/11/24 05/12/24 05/13/24 23:59 23:59 23:59 Intake Total 1150 / 1350 1400 / 1400 Balance 1150 / 1350 1400 / 1400 Lab / Micro Data Labs: Laboratory Results - last 24 hr 05/11/24 13:59: PTH Intact Cancelled 05/12/24 12:04: PTH Intact 104.2 H 05/12/24 13:59: PTH Intact 98.5 H 05/12/24 14:05: PTH Intact 66.4 05/12/24 14:12: PTH Intact 126.6 H 05/12/24 14:18: PTH Intact Cancelled 05/12/24 14:56: PTH Intact 151.8 H 05/12/24 16:00: Hep Bs Antigen Non-Reactive, Hep Bs Antibody Non-Reactive, Hepatitis C Antibody Non-Reactive, HIV 1&2 Antibody Non-Reactive 05/12/24 16:23: PTH Intact 42.2 05/13/24 05:56: Calcium 9.2, Magnesium 1.9, PTH Intact 56.4 Physical Exam Neck Neck Narrative: Anterior cervical region- incision c/d/i. No erythema or infection noted. No swelling noted. No active bleeding or oozing noted. No ecchymosis noted Assessment & Plan Assessment/Plan (1) Hyperparathyroidism: PLAN: I am following this patient in conjunction with Dr. Chavira. He has also independently evaluated this patient Calcium returned as 9.2 and PTH returned as 56.4. Plan to discharge patient later today Plan will be to send patient home on calcium supplementation 1 tablet BID x 14 days Discharge instructions reviewed with the patient Charges/Coding Visit Charges Inpatient E&M: 71408 Subs Hosp L1 (post-op; no charge)
--- NOTE | 2024-05-13 11:52 | PCM.DC ---
Discharge Instructions Diet Discharge Diet: No restrictions (However recommend a liquid to soft diet initially postoperatively) Activity Discharge Activity: May Not Drive (While it remains difficult to check blind spots quickly) May shower in (days): 2 Ice area for (Minutes): 20 Lifting Restrictions: No lifting greater than 15 pounds for 2 weeks after surgery Dressing / Incision Call your doctor if your incision/area has: Continuous Slow Oozing, Sudden Increased Bleeding, Increased Pain/ Swelling, Increased Redness and Swelling at the incision site Call your doctor if you observe: Numbness or Tingling Remove Dressing in: 2 days (Please leave Steri-Strips intact until they fall off spontaneously or are taken off at your follow-up visit) Cleanse incision/area with: Soap & Water Follow Up Care Please Follow Up With: Karan Chavira MD When: 7-10 days postop Test Results: Test results from this visit will be discussed in further detail at your follow-up appointment, if applicable. Discharge Plan Admission Admit Date/Time: 05/12/24 17:16 Primary Reason for Your Visit: Hyperparathyroidism Attending Provider: Karan Chavira Primary Care Provider: Tani Grey Chi Instructions Additional Instructions / Restrictions: Thyroid Diet ? Start light with soups and soft bland foods. You may advance diet as tolerated. Activity ? You may drive in 3-5 days but not while taking narcotic pain medication. ? I encourage walking. You may go up steps, one at a time. ? Do not swim or use hot tubs for 2 weeks. Recommend icing the incision for 20 minutes three times per day for 2-3 days after surgery Lifting ? You may lift up to 15 pounds for the first 2 weeks. Dressings/Incision ? You may remove your dressing in 2 days following your procedure You may shower OVER surgical glue in 2 days after removing the gauze dressing ? Do NOT tub bathe for 1 week ? If you have clothing that rubs on your incision, you should protect it with gauze and tape, or an oversized band-aid for the first 3 to 5 days. Medications ? Anesthesia used during surgery and pain medications may cause constipation. I recommend initiating on the day of surgery a fiber supplement like, Metamucil, Citrucel, FiberCon, Benefiber, or a generic form of these medications. 1 heaping tablespoon in water daily. You may continue to utilize any bowel regimen or oral laxatives that you routinely take. ? As long as you are not intolerant to Tylenol, acetaminophen, ibuprofen, Motrin, Advil, Aleve, or similar medications, I would recommend transitioning to these [id number] medicines as soon as possible instead of continued use of narcotic pain medication. Follow up ? You should call [facility] soon after surgery, at [phone] option 2 to make a follow up appointment for 7-10 days after your surgery. Discharge Orders/Prescriptions Prescriptions: New acetaminophen 500 mg Tablet 500 mg PO Q6H PRN PRN (Reason: Pain Score 1-10) Qty: 0 0RF calcium carbonate-vitamin D3 [Oyster Shell Calcium-Vit D3] 500 mg-5 mcg (200 unit) Tablet 1 tab PO BIDCM 14 Days Qty: 28 0RF cholecalciferol (vitamin D3) 125 mcg (5,000 unit) capsule 125 mcg PO DAILY Qty: 30 0RF Continued atorvastatin [Lipitor] 20 mg tablet 20 mg PO QHS albuterol sulfate 90 mcg/actuation HFA aerosol inhaler 2 puff INHALATION Q4H PRN (Reason: shortness of breath or wheezing) Qty: 1 6RF Rx Instructions: administer with spacer pravastatin 40 mg tablet 40 mg PO QHS Patient Comments: TAKE 1 TABLET BY MOUTH EVERY DAY AT BEDTIME magnesium 250 mg tablet 250 mg PO DAILY Breztri Aerosphere 160-9-4.8 mcg/actuation HFA aerosol inhaler 2 inh inhalation BID polysaccharide iron complex 150 mg iron capsule 150 mg PO QDAY potassium chloride 20 mEq tablet extended release 20 meq PO QDAY amlodipine 5 mg tablet 5 mg PO DAILY sucralfate 1 gram tablet 1 g PO 4X/DAY Qty: 56 1RF Rx Instructions: Take 1 hour before meals and at bedtime bupropion HCl (smoking deter) 150 mg tablet extended release 12 hr 150 mg PO BID omeprazole 40 mg capsule,delayed release(DR/EC) 40 mg PO DAILY anastrozole 1 mg tablet 1 mg PO DAILY Qty: 90 1RF Discontinued cholecalciferol (vitamin D3) 125 mcg (5,000 unit) capsule 125 mcg PO DAILY Referrals / Follow Up: Karan Chavira MD [Med Staff - Active Staff] - 05/20/24 (Please call our office to schedule an appointment) Tani Grey Chi, MD [Primary Care Provider] - Disposition Disposition (needs filled in before D/C Order can be placed): Home, Self Care
[2024-05-13] MEDS: Acetaminophen 500 MG Tablet PO (13:19)
[2024-05-13 13:20] VITALS: BP 157/78; PULSE 84; RESP 95; TEMP 36.6; O2SAT 16
--- NOTE | 2024-05-13 14:43 | PHA.DC.MR.R ---
Pharmacy [place] Med Reconciliation Pharmacy Service has performed discharge medication reconciliation for this patient. Medication education papers prepared, patient discharged before I was able to skilled nursing facility counselor. Medications reviewed. The patient's discharge medication list was reviewed for discrepancies and discrepancies were resolved. Medications at Discharge Home Medications atorvastatin 20 mg tablet (Lipitor) 20 mg PO QHS 06/08/20 albuterol sulfate 90 mcg/actuation aerosol inhaler 2 puff inhalation Q4H PRN shortness of breath or wheezing #1 device 06/23/20 anastrozole 1 mg tablet 1 mg PO DAILY #90 tabs 04/02/23 pravastatin 40 mg tablet 40 mg PO QHS 05/14/23 budesonide 160 mcg-glycopyr 9 mcg-formot 4.8 mcg/actuation HFA inhaler (Breztri Aerosphere) 2 inh inhalation BID 12/06/23 magnesium 250 mg tablet 250 mg PO DAILY 12/06/23 polysaccharide iron complex 150 mg iron capsule 150 mg PO QDAY 02/07/24 potassium chloride 20 mEq tablet,extended release 20 meq PO QDAY 02/07/24 amlodipine 5 mg tablet 5 mg PO DAILY 03/19/24 sucralfate 1 gram tablet 1 g PO 4X/DAY #56 tabs 03/24/24 bupropion HCl (smoking deter) 150 mg tablet,12 hr sustained-release(smoking deterrent) 150 mg PO BID 04/29/24 omeprazole 40 mg capsule,delayed release 40 mg PO DAILY 04/29/24 acetaminophen 500 mg tablet 500 mg PO Q6H PRN PRN Pain Score 1-10 #0 tabs 05/13/24 calcium carbonate 500 mg-vitamin D3 5 mcg (200 unit) tablet (Oyster Shell Calcium-Vitamin D3) 1 tab PO BIDCM 14 days #28 tabs 05/13/24 cholecalciferol (vitamin D3) 125 mcg (5,000 unit) capsule 125 mcg PO DAILY #30 caps 05/13/24
[2024-05-14 06:09] LABS: Hepatitis B Core Ab Total Negative (Negative)
== END 2024-05-13 13:40 | disposition home or self-care (01) ==
LOC: SDC 17:32 → MS3 17:32
PROVIDERS: Anesthesiology; Physician Assistant; Admitting Provider Surgery; PCP Family Medicine Geriatric Medicine; Referring Provider Surgery; Visit Provider Surgery
PROC: (CPT 60500; principal; 2024-05-12 11:00)
DX: E21.0 Primary hyperparathyroidism (principal); J43.9 Emphysema, unspecified; K59.00 Constipation, unspecified; I10 Essential (primary) hypertension; K21.9 Gastro-esophageal reflux disease without esophagitis; E78.00 Pure hypercholesterolemia, unspecified; F17.210 Nicotine dependence, cigarettes, uncomplicated; Z79.899 Other long term (current) drug therapy; R94.31 Abnormal electrocardiogram [ECG] [EKG]; R92.8 Other abnormal and inconclusive findings on diagnostic imaging of breast; R06.02 Shortness of breath
CPT/HCPCS: 60500; 00540; 36415; 80076; 82310; 83735; 83970; 85610; 85730; 86703; 86704; 86706; 86803; 87340; 88305; 88331; 88341; 93005; 96360; 96361; 99221; A4648; J7030; J7120; G0378; J2405

== ENCOUNTER → 2024-05-21 | Outpatient (CLI) | payer MEDICARE, SELFPAY ==
[2024-05-21 10:35] LABS: Absolute Lymphocyte Count 2.06 X10^3/uL (0.83-4.51); Absolute Neutrophil Count 2.9 X10^3/uL (2.0-7.7); Basophil# 0.03 X10^3/uL; Basophil% 0.6 % (0-1); Eosinophils% 1.8 % (0-5); Hematocrit 34.4 % (37-47); Hemoglobin 10.7 g/dL (12.0-15.0); Lymphocyte # 2.06 X10^3/ul (0.83-4.51); Lymphocyte % 37.9 % (19-41); Mean Corp Hgb Conc 31.1 g/dL (32-36); Mean Corpuscular Hgb 24.2 pg (27.0-32.0); Mean Corpuscular Volume 77.7 fL (81-99); Mean Platelet Vol. 10.8 fl (6.2-12.0); Monocyte# 0.37 X10^3/uL; Monocyte% 6.8 % (0-10); NRBC Flagged by Analyzer 0 % (0-5); Neutrophil # 2.87 X10^3/uL (2.7-7.7); Neutrophil % 52.7 % (47-70); Platelet Count 250 K/mm3 (150-450); RBC Distribution Width CV 15.8 % (11.6-14.6); RBC Distribution Width SD 44.6 fl (35.1-43.9); Red Blood Count 4.43 M/mm3 (4.2-5.4); White Blood Count 5.4 K/mm3 (4.4-11.0)
[2024-05-21 11:48] LABS: AST(SGOT) 19 U/L (15-37); Alanine Aminotransfer ALT/SGPT 18 U/L (13-56); Albumin, Serum 3.6 g/dL (3.2-5.0); Alkaline Phosphatase 88 U/L (45-117); Anion Gap 7 (5-15); BUN 18 mg/dL (7-18); BUN/Creat Ratio 11.6 RATIO (10-20); Calcium,Total 10.3 mg/dL (8.5-10.1); Chloride 106 mmol/L (98-107); Creatinine, Serum 1.55 mg/dL (0.55-1.02); EST Glomerular Filtration Rate 35 mL/min (>60); Est Glom Filt Rate - Afr Amer 43 mL/min (>60); Globulin 3.6 g/dL (2.2-4.2); Glucose 105 mg/dL (74-106); Potassium 3.7 mmol/L (3.5-5.1); Protein, Total 7.2 g/dL (6.4-8.2); Sodium Level 141 mmol/L (136-145)
[2024-05-21 17:25] LABS: Vitamin D,25 Hydroxy 67.8 ng/mL
== END | disposition home or self-care (01) ==
LOC: POLAB3 10:18
PROVIDERS: PCP Family Medicine Geriatric Medicine; Visit Provider Family Medicine Geriatric Medicine
DX: E55.9 Vitamin D deficiency, unspecified (principal); I10 Essential (primary) hypertension
CPT/HCPCS: 36415; 80053; 82306; 84443; 85025

== ENCOUNTER → 2024-05-29 | Outpatient (CLI) | payer MEDICARE, SELFPAY ==
[2024-05-29 12:31] LABS: PTHIN 80.4 pg/mL (18.4-80.1)
[2024-05-29 12:56] LABS: Calcium,Total 9.9 mg/dL (8.5-10.1)
== END | disposition home or self-care (01) ==
LOC: LAB 11:06
PROVIDERS: PCP Family Medicine Geriatric Medicine; Referring Provider Surgery; Visit Provider Surgery
DX: Z98.890 Other specified postprocedural states (principal); Z90.89 Acquired absence of other organs
CPT/HCPCS: 36415; 82310; 83970

== ENCOUNTER → 2024-06-12 | Outpatient (CLI) | payer MEDICARE, SELFPAY ==
--- NOTE | 2024-06-12 08:59 | RDU_ITS ---
Reason For Study: CKD Right Renal Artery Left Renal Artery Right renal artery ostium 57.2/11.8 Left renal artery ostium 52.3/20.4 RSV/EDV. PSV/EDV. Right renal artery proximal Left renal artery proximal PSV/EDV 94.2/21.2 PSV/EDV. 84.5/13.9 . Right renal artery mid 101.7/25 Left renal artery mid 71.4/11.7 PSV/EDV. PSV/EDV . Right renal artery distal 90.6/19.5 Left renal artery distal 66.2/12.2 PSV/EDV. PSV/EDV. Right Renal Parenchyma Left Renal Parenchyma Upper Pole Medula 34.1/8.4 PSV/EDV. Left upper pole medulla 20.4/5.1 Right upper pole medulla EDR 0.2 . PSV/EDV . Right upper pole medulla R.I. Left upper pole medulla EDR 0.2 . 0.76 . Left upper pole medulla R.I. 0.75 . Upper Carlos Cortx 16.3/5.5 PSV/EDV. UP Cortex 25.4/5.6 PSV/EDV. Right upper pole cortex EDR 0.3 . Left upper pole cortex EDR 0.2 . Right upper pole cortex R.I. 0.66 . Left upper pole cortex R.I. 0.78 . Right lower Pole medulla 26.7/7.4 Left lower Pole medulla 23.2/5.1 PSV/EDV . PSV/EDV . Right lower pole medulla EDR 0.3 . Left lower pole medulla EDR 0.2 . Right lower pole medulla R.I. Left lower pole medulla R.I. 0.78 . 0.72 . Lower Pole Cortx 16.6/4 PSV/EDV. Lower Pole Cortex 19.7/5.5 PSV/EDV. Left lower pole cortex EDR 0.2 . Right lower pole cortex EDR 0.3 . Left lower pole cortex R.I. 0.76 . Right lower pole cortex R.I. 0.72 . Left Renal Hilar Right Renal Hilar LT Hilar avg 41.1/11.6 PSV/EDV . Right Hilar avg 50.8/11.5 PSV/EDV. Left hilar acceleration time 60 Right hilar acceleration time 50 m/sec. m/sec. Left Renal Dimensions Right Renal Dimensions Left kidney size 7.98 cm . Right kidney size 9.16 cm . Left cortical dimension 1.24 cm . Right cortical dimension 1.36 cm . Aorta Proximal abdominal aorta 2.11 x 2.08 cm . Proximal abdominal aorta peak systolic velocity is 55.9 cm/sec . Distal abdominal aorta 1.78 x 1.83 cm . Distal abdominal aorta peak systolic velocity is 53.8 cm/sec . VL/Renal Artery Duplex Ultrasound Interpretation Summary Right renal artery patent with normal velocities and no evidence of stenosis. Left renal artery patent with normal velocities and no evidence of stenosis. Right renal vein patent. Left renal vein patent. Right kidney normal in size. Left kidney diminshed in size Ordering Physician: Radha Brothers Referring Physician: Tani Grey Chi Performed By: Afia Ring RVT
== END | disposition home or self-care (01) ==
LOC: CVS 08:57
PROVIDERS: PCP Family Medicine Geriatric Medicine; Referring Provider Internal Medicine Nephrology; Visit Provider Internal Medicine Nephrology
DX: N18.31 Chronic kidney disease, stage 3a (principal)
CPT/HCPCS: 93975

== ENCOUNTER → 2024-06-23 | Outpatient (CLI) | payer MEDICARE, SELFPAY ==
--- NOTE | 2024-06-23 10:20 | RAD_ITS ---
STUDY: X-RAY - ABDOMEN/PELVIS REASON FOR EXAM: Female, 69 years old. Constipation. Sitz markers day 3 TECHNIQUE: Single AP view of the abdomen / pelvis on 2 images. COMPARISON: None. FINDINGS: 15 Sitzmarks markers distributed from the cecum to the rectosigmoid. Normal bowel gas pattern. Air seen to the rectosigmoid. Moderate amount of feces in the colon. Normal soft tissue structures. Normal visualized osseous structures. RAD/Abdomen Single View IMPRESSION: 15 Sitzmarks markers distributed as described above. No acute abnormality. Electronically Signed: Donnell Judge MD at 13:19 EDT ,
== END | disposition home or self-care (01) ==
LOC: RAD 10:20
PROVIDERS: PCP Family Medicine Geriatric Medicine; Referring Provider Student in an Organized Health Care Education/Training Program; Visit Provider Student in an Organized Health Care Education/Training Program
DX: K59.00 Constipation, unspecified (principal)
CPT/HCPCS: 74018

== ENCOUNTER → 2024-06-25 | Outpatient (CLI) | payer MEDICARE, SELFPAY ==
--- NOTE | 2024-06-25 11:45 | RAD_ITS ---
INDICATION: Constipation -- Sitz marker day 5 EXAMINATION/TECHNIQUE: X-RAY - XR Abdomen 1 View COMPARISON: June 23, 2024 FINDINGS: BOWEL GAS PATTERN: Non-obstructive. No bowel or stomach distention. There are 7 remaining Sitz markers in comparison to the 15 on the prior examination visualized within the ascending, transverse and descending colon and the expected region of the rectum. FREE AIR: Not assessed on a single supine view. ORGANOMEGALY: Not seen. CALCIFICATIONS: No abnormal calcifications observed. LOWER CHEST: No acute pathology. BONES AND SOFT TISSUES: There are degenerative changes of the lumbar spine. RAD/Abdomen Single View IMPRESSION: Interval passage of 8 Sitz markers with 7 residual markers as described above. Electronically Signed: Kristel Myers MD at 8:19 EDT ,
== END | disposition home or self-care (01) ==
LOC: RAD 11:41
PROVIDERS: PCP Family Medicine Geriatric Medicine; Referring Provider Student in an Organized Health Care Education/Training Program; Visit Provider Student in an Organized Health Care Education/Training Program
DX: K59.00 Constipation, unspecified (principal)
CPT/HCPCS: 74018

== ENCOUNTER 2024-07-11 05:44 | Day surgery (SDC) | payer MEDICARE, SELFPAY ==
[2024-07-11] VITALS (7 sets, daily range): BP systolic 128–149; BP diastolic 68–73; PULSE 65–84; RESP 16–18; TEMP 36.2–36.9; O2SAT 92–100; BMI 25.6
--- NOTE | 2024-07-11 06:58 | PRE.ANES_ITS ---
ASA Classification* ASA Classification ASA Classification: 3 Assessment & Plan Anesthesia* Anesthesia Assessment Anesthesia Assessment: Discussed sedation and/or anesthesia options, risks, benefits, and alternatives with patient/parents/legal guardian/POA. Questions invited. The patient/parents/legal guardian/POA seems to understand and agrees to proceed with anesthesia plan. Reviewed the physical assessment, medical history, allergy history and patient home medications list prior to surgery/procedure/anesthetic and documented any changes. Performed airway and anesthesia risk assessments. Anesthesia Type Anesthesia Type: MAC (see written pre anesthesia record for full assessment) Anesthesia Focused Assessment* Temperature: 97.7 F Pulse Rate: 84 Blood Pressure: 136/73 Respiratory Rate: 18 Pulse Ox: 98 Airway Assessment Mouth opens: >3 cm Mallampati Score: II Focused Labs Anesthesia Preop lab: CBC WBC 5.7 K/mm3 (4.4-11.0) 06/04/24 13:26 RBC 4.47 M/mm3 (4.2-5.4) 06/04/24 13:26 Hgb 10.7 g/dL (12.0-15.0) L 06/04/24 13:26 Hct 34.4 % (37-47) L 06/04/24 13:26 Plt Count 209 K/mm3 (150-450) 06/04/24 13:26 CHEMISTRY Potassium 3.5 mmol/L (3.5-5.1) 06/04/24 13:26 Sodium 137 mmol/L (136-145) 06/04/24 13:26 Magnesium 1.9 mg/dL (1.6-2.6) 05/13/24 05:56 Phosphorus 2.8 mg/dL (2.5-4.9) 04/22/24 13:51 BUN 23 mg/dL (7-18) H 06/04/24 13:26 Creatinine 1.55 mg/dL (0.55-1.02) H 06/04/24 13:26 Glucose 115 mg/dL (74-106) H 06/04/24 13:26 TSH 1.670 uIU/mL (0.358-3.740) 05/21/24 10:18 COAG PT 13.4 SECONDS (11.7-14.9) 05/09/24 08:32 Pre-Assessment Diagnosis/Proposed Procedure Planned Operative Procedure(s): EGD Anesthesia History 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 When Was Last Pacemaker Check QUESTION #4 FULL TEXT: You/Your Family Experience fever (hyperthermia) with Anesthesia Last Oral Intake Last Oral intake: Last Oral Intake NPO since 00:00 07/11/24 06:16 Meds taken in AM with sips of Yes 07/11/24 06:16 water? Meds patient instructed to take am of surgery PONV PONV - restaurant operations manager: PONV - restaurant operations manager Female Yes 07/08/24 16:03 HX of Motion Sickness No 07/08/24 16:03 HX of N/V After Surgery No 07/08/24 16:03 Non-Smoker No 07/08/24 16:03 Duration of Surgery greater No 07/08/24 16:03 than 60 minutes Number of Risk Factors 1 07/08/24 16:03 PONV Score Low Risk 07/08/24 16:03 Height & Weight Height & Weight: Anesthesia: Height & Weight Height 5 ft 2 in 07/11/24 06:16 Weight: 63.503 kg 07/11/24 06:16 Body Mass Index (BMI) 25.6 07/11/24 06:16 Respiratory Assessment Respiratory Assessment - restaurant operations manager: Respiratory Tract Infection Hx - restaurant operations manager Hx Respiratory Tract Infection No 07/08/24 16:03 STOP Sleep Apnea STOP Sleep Apnea - restaurant operations manager: STOP Sleep Apnea - restaurant operations manager Hx Hypertension Yes: CONTROLLED WITH MED 07/08/24 16:03 Hx Sleep Apnea No 07/08/24 16:03 CPAP BIPAP Do you snore loudly (louder No 07/08/24 16:03 than talking or can be heard Do you often feel tired/ No 07/08/24 16:03 fatigued/ sleepy during daytime? Has anyone observed you stop No 07/08/24 16:03 breathing during sleep? STOP Results Negative 07/08/24 16:03 QUESTION #5 FULL TEXT : Do you snore loudly (louder than talking or can be heard through closed doors)? 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 - restaurant operations manager: Tobacco Use History - restaurant operations manager Tobacco Use Smoking Status Current some day smoker 07/08/24 16:03 Hx Tobacco Use Yes 07/08/24 16:03 Years Smoking Packs Smoked per Day Smoking Cessation Date was within the last 15 years Hx Smoking Cessation Date Hx Smoking Cessation Counseling Hematologic Medial History Hematologic Hx - restaurant operations manager: Hematologic Medical Hx - product promoter sales person Hx of Blood Transfusion No 07/08/24 16:03 Hx of Transfusion in last 3 No 07/08/24 16:03 Months Date of Last Transfusion (if within last 3 months) Ever experience any problems No 07/08/24 16:03 with transfusion(s)? Specify any problems Hx of Preganancy in last 3 N/A 07/08/24 16:03 Months Nurse Filling Out Transfusion NBUCHER 07/08/24 16:03 & Questions: Date: 07/08/24 07/08/24 16:03 Time: 16:04 07/08/24 16:03 Patient unable to answer at this time (ie. confused, unrespo /Reproduction History /Reproductive History - restaurant operations manager: /Reproductive Hx- restaurant operations manager Hx Now Gestational Age (in weeks): EDC: Hx Hx Para Hx Section SAB No 07/08/24 16:03 PFSH Medical History History of GI bleed Wears hearing aid Wears glasses Cancer Easy bruising History of ulceration Chronic constipation Gastric reflux Shortness of breath on exertion Emphysema, unspecified COPD (chronic obstructive pulmonary disease) History of pain when walking History of edema Hyperparathyroidism Abnormal ultrasound of breast Breast pain, right Encounter for screening for malignant neoplasm of lung Tobacco use disorder, continuous Encounter for screening for malignant neoplasm of lung in current smoker with 30 pack year history or greater Sciatic leg pain Wears dentures Post-menopausal Depression Anemia High cholesterol Back pain Chronic cough Hypertension Iron deficiency anemia due to chronic blood loss Osteopenia Invasive ductal carcinoma of right breast SOB (shortness of breath) Arthritis GERD (gastroesophageal reflux disease) Smoking greater than 30 pack years Emphysema lung Bronchitis Asthma Home Medications ?Medication ?Instructions ?Recorded ?Last Taken ?Type albuterol sulfate 90 mcg/actuation 2 puff inhalation Q4H PRN 06/23/20 07/04/21 Rx aerosol inhaler shortness of breath or wheezing #1 device anastrozole 1 mg tablet 1 mg PO DAILY #90 tabs 04/02/23 07/11/24 Rx pravastatin 40 mg tablet 40 mg PO QHS 05/14/23 07/11/24 History budesonide 160 mcg-glycopyr 9 2 inh inhalation BID 12/06/23 07/11/24 History mcg-formot 4.8 mcg/actuation HFA inhaler (Breztri Aerosphere) polysaccharide iron complex 150 mg 150 mg PO QDAY 02/07/24 07/11/24 History iron capsule potassium chloride 20 mEq 20 meq PO QDAY 02/07/24 07/11/24 History tablet,extended release amlodipine 5 mg tablet 5 mg PO DAILY 03/19/24 07/11/24 History bupropion HCl (smoking deter) 150 150 mg PO BID 04/29/24 07/11/24 History mg tablet,12 hr sustained-release(smoking deterrent) omeprazole 40 mg capsule,delayed 40 mg PO DAILY 04/29/24 07/11/24 History release acetaminophen 500 mg tablet 500 mg PO Q6H PRN PRN Pain Score 05/13/24 Unknown Rx 1-10 #0 tabs cholecalciferol (vitamin D3) 125 125 mcg PO DAILY #30 caps 05/13/24 07/11/24 Rx mcg (5,000 unit) capsule lubiprostone 8 mcg capsule 8 mcg PO BID #60 caps 07/09/24 07/11/24 Rx (Amitiza) Allergy/AdvReac Type Severity Reaction Status Date / Time latex AdvReac Intermediate rash Verified 07/11/24 06:14 Penicillins AdvReac Intermediate Rash Verified 07/11/24 06:14 Family History Mother Diabetes Hypertension Gastric ulcer Hyperlipidemia CVA (cerebral vascular accident) Father Diabetes COPD (chronic obstructive pulmonary disease) Hypertension Prostate cancer Aunt Breast cancer Surgical History H/O parathyroidectomy S/P parathyroidectomy S/P lumpectomy, right breast Hx of colonoscopy Hx of fusion of cervical spine Status post right breast lumpectomy History of tonsillectomy and adenoidectomy Hx of colonoscopy (~2019) H/O tubal ligation Social History Smoking Status: Current some day smoker tobacco type: cigarettes Tobacco: How many years used: 45 how long ago did patient quit smoking: down to only smoking 4 cigarettes/day second hand exposure: Yes alcohol intake: current alcohol intake frequency: holidays/special occasions only substance use type: marijuana caffeine: Yes what type of physical activity do you participate in: none frequency: does not exercise laine/episcopal: None seatbelt use: always do you feel safe at home: Yes additional social history: Review of Systems (Anesthesia) ROS Narrative System reviewed and no additional complaints, except as documented.
--- NOTE | 2024-07-11 07:00 | EGD_PTH ---
PATIENT: MATY SHEN LOC: EN U#:[id number] AGE/SX: 69/F ROOM: RE07/11/[address]: Dr. Bright Wheeler DO : 1955 BED: DIS: 07/11/2024 SPEC #: [id number] RECD: 07/11/24 10:28 STATUS: SUSANNAH REBrennan #: [id number] SUSANNAH: 07/11/24 07:[address]: Bright Wheeler DEPT: SURGICAL PATHOLOGY RECD BY: Valentina Campbell ENTERED: 07/11/24 12:20 SP TYPE: EGD BIOPSY OT DR: Dr. Tani Grey MD Tissues: A - Gastric mucous membrane B - Duodenum, NOS C - Esophagus, NOS Procedures: Special Stain Group I Surgery Specimen Level IV Alcian Blue/PAS (control) HEADER OPERATION: EGD with biopsy PRE-OP DIAGNOSIS: Constipation, abdominal pain TISSUE SUBMITTED: A- Gastric ulcer biopsy, B- Duodenum biopsy, C- Distal esophagus biopsy MICROSCOPIC DIAGNOSIS A. Gastric ulcer, biopsy: Fragments of gastric mucosa with focal ulceration, fibrinous exudation, acute and chronic inflammation. See comment. B. Duodenum, biopsy: Fragments of duodenal mucosa, no pathologic diagnosis. C. Distal esophagus, biopsy: Fragments of gastroesophageal mucosa with chronic inflammation. Intestinal metaplasia (goblet cell metaplasia) is not identified. See comment. 07/14/2024 COMMENT A. The results of immunohistochemistry for Helicobacter pylori will be reported separately ([id number]). C. Alcian blue/PAS stain with matched control is used in the evaluation of the specimen. The specimen predominantly consists of gastric mucosa. MICROSCOPIC DESCRIPTION Slides are reviewed. GROSS DESCRIPTION A. Received in fixative is one container labeled with the patient's name and designated Gastric ulcer biopsy. The specimen consists of multiple irregular fragments of light toney soft tissue that in aggregate measure 0.8 x 0.5 x .1 cm. The specimen is totally submitted in one cassette. B. Received in fixative is one container labeled with the patient's name and designated Duodenum biopsy. The specimen consists of two irregular fragments of light toney soft tissue that in aggregate measure 0.6 x 0.3 x 0.1 cm. The specimen is totally submitted in one cassette. C. Received in fixative is one container labeled with the patient's name and designated Distal esophagus biopsy. The specimen consists of two irregular fragments of light toney soft tissue that in aggregate measure 0.6 x 0.3 x 0.1 cm. The specimen is totally submitted in one cassette. SJ 07/11/2024 TC:2 CPT:69455i1,38689
--- NOTE | 2024-07-11 07:00 | IMM_PTH ---
PATIENT: MATY SHEN LOC: EN U#:[id number] AGE/SX: 69/F ROOM: RE07/11/[address]: Dr. Bright Wheeler DO : 1955 BED: DIS: 07/11/2024 SPEC #: [id number] RECD: 07/11/24 11:44 STATUS: SUSANNAH REQ #: [id number] SUSANNAH: 07/11/24 07:[address]: Bright Wheeler DEPT: IMMUNOHISTOCHEMISTRY RECD BY: Sebastian Floyd ENTERED: 07/11/24 11:44 SP TYPE: IMMUNO OTHR DR: Dr. Tani Grey MD Tissues: A - Gastric mucous membrane Procedures: H Pylori (initial) PHYSICIAN & INSTITUTION [place] [address] SPECIMEN INFORMATION: Tissue Source: A- Gastric ulcer biopsy Clinical Info: Constipation, abdominal pain Specimen Number: [id number] CPT code: 95865 METHODOLOGY: Deparaffinized sections of prefer/formalin-fixed tissue or PAP/DQ stained slides are incubated with monoclonal/polyclonal antibodies/oligonucleotide probes. Localization is made via biotin free immunoperoxidase method. Appropriate controls are performed and reacted as expected. Results on target cell population are indicated in the following table: RESULTS: ANTIBODY / CLONE RESULT Block A H Pylori (polyclonal) negative These tests were developed and their performance characteristics determined by [facility]. They may not have been cleared or approved by the U.S. Food and Drug Administration. The FDA has determined that such clearance or approval is not necessary. The above immunohistochemical/dualISH markers are ordered and reviewed by the Pathologist. INTERPRETATION: A. Gastric ulcer, biopsy: Negative for Helicobacter pylori organisms. 07/14/2024
--- NOTE | 2024-07-11 08:15 | HP.PCM_ITS ---
History and Physical Date of Admission: 07/11/24 MATY SHEN, is a 69 F who presents to the office today for establishment with [facility]. Pt has a PMHx of DDD, hyperparathyroidism, GERD, osteopenia, and invasive ductal carcinoma. She is here to discuss her chronic constipation and increasing lower abdominal pain. She has had constipation for years and remembers being constipated as a child. She takes miralax daily and has a bowel movement about every day. Her bowel movements do not feel complete and she often has tenesmus. Since May 2023 she has been having severe lower abdominal cramping. At first is was only occurring occasionally but now she has multiple episodes per day. This affects her abilities to do ADLs like showering and moving around the house. The pain is low and she is unsure if the pain is gastrointestinal or gynecologic. She has not see an OBGYN in years but has never had issues. She had upper and lower scopes at [facility] in March 2024. EGD 7.10.17; one non bleeding gastric ulcer, erythematous tissue in the gastric antrum Colonoscopy .10.17; polyps in the sigmoid and hepatic flexure ROS Const Constitutional: Positive for fatigue, weakness and weight change (weight loss); No fever(s) ENT ENT: No difficulty swallowing Cardio Cardiology: Positive for leg pain with exertion Gastro GI: Positive for abdominal pain, bloating, change in bowel habits, constipation, diarrhea, excessive flatus, nausea/dyspepsia and vomiting; No belching, change in stool character, coffee ground emesis, cramping, heartburn, difficulty swallowing, feeling full early, incontinent of stools, Vomiting blood/hematemesis, Blood in stool, loose stools, Black,tarry stools, pain with swallowing or other Musc Musculoskeletal: Positive for back pain, muscle weakness, numbness, stiffness, tingling, Arthritis, sciatica and leg pain with exertion; No joint pain Skin Skin: Positive for dry skin and itchy eyes; No yellowing of the eye Neuro Neurology: Positive for weakness, numbness and tingling Psych Psychiatric: No anxiety and No depression Endo Endocrine: Positive for fatigue and weight change (weight loss) Aller/Imm Allergy/Immunologic: Positive for itchy eyes Nico/Lymp Hematologic/Lymphatic: Positive for easy bruising; No easy bleeding Exam Const General: cooperative and comfortable Nutritional Appearance: average body habitus and well nourished [facility] Head: normal to inspection Ears: hearing grossly normal bilaterally Nose: external nose normal Face and sinus: normal facial exam Eyes General: appearance normal, both eyes and all related structures Neck Neck: normal visual inspection Chest Chest palpation & inspection: normal inspection of the chest Resp Effort & Inspection: normal respiratory effort GI Inspection: normal to inspection Palpation: no hepatosplenomegaly Skin General: no rashes or lesions noted Neuro General: patient alert Extrem General: normal to inspection Psych Affect: normal affect Assessment and Plan Assessment and Plan (1) Constipation: Status: Inactive (2) Abdominal pain: Status: Acute Plan: Pt is a 69 yo female here today for evaluation of constipation and lower abdominal pain. She has had constipation for as long as she can remember. She takes miralax daily and will have one incomplete bowel movement per day. She has had increasing lower abdominal pain over the past year to the point where she is no longer able to perform ADLs without having to take a break. She gets the pain multiple times per day. She is unsure if it is GI pain or gynecological pain. She does not have an OBGYN and has not seen one in years. I will refer here to [facility] for further work up. I will order sitz marker testing to distinguish between a pelvic floor issue or slow transit constipation. In the mean time I will prescribe Linzess 145 mcg daily for constipation and pain. Im hesitant to give dicyclomine for her pain as she is already constipated. If her symptoms resolve with this tx it is likely a slow transit constipation. She will also be scheduled for an EGD to ensure healing of a gastric ulcer on last scope in March 2024. -EGD -Referral to [facility] care -Linzess 145 mcg daily -Sitz marker test -f/u in 3 months Orders: Orders Abdomen Single View Today K59.00 - Constipation, unspecified Abdomen Single View 5 Days K59.00 - Constipation, unspecified Referrals SOFTWARE QUALITY AUTOMATION ENGINEER R10.2 - Pelvic and perineal pain Medications: New linaclotide (Linzess) 145 mcg PO QAM 90 caps 2RF I have examined the patient and the H&P has been reviewed. There are no clinical changes since date of exam.
--- NOTE | 2024-07-11 09:00 | PCM.POST.ANE ---
Anesthesia: Postop Eval I Current Vital Signs Temperature: 97.2 F Pulse Rate: 79 Blood Pressure: 149/68 Respiratory Rate: 16 Pulse Ox: 92 Oxygen Delivery Method: Room Air Assessment Airway patent: Yes Spontaneous unlabored respirations: Yes Mental status: Awake and Calm nausea: No Vomiting: No Anesthesia Complication: No Fluid Hydration Crystalloid volume administer (ml): 15 Total IV fluid infused: 15 Progress Note Anesthesia document: Postop Eval 1 completed: Yes
--- NOTE | 2024-07-11 09:01 | POSTOPAN2_ITS ---
Anesthesia Postop Eval I Sum Postop Eval Completion status Anesthesia document: Postop Eval 1 completed: Yes Anesthesia Postop Eval I Summary Anesthesia Postop Eval I Summary: Anesthesia Postop Eval I: Assessment Summary Airway patent Yes 07/11/24 09:01 HUMAN RESOURCES OPERATIONS COORDINATOR.MDPEDRO LUIS Spontaneous unlabored Yes 07/11/24 09:01 HUMAN RESOURCES OPERATIONS COORDINATOR.KIT respirations Mental status Awake,Calm 07/11/24 09:01 HUMAN RESOURCES OPERATIONS COORDINATOR.MDOT nausea No 07/11/24 09:01 HUMAN RESOURCES OPERATIONS COORDINATOR.OT Vomiting No 07/11/24 09:01 HUMAN RESOURCES OPERATIONS COORDINATOR.KIT Anesthesia Postop Eval I: Fluid Summary Crystalloid volume administer 15 07/11/24 09:01 HUMAN RESOURCES OPERATIONS COORDINATOR.MDOT (ml) Colloids volume administered ( ml) Blood Product volume administered (ml) Total IV fluid infused 15 07/11/24 09:01 HUMAN RESOURCES OPERATIONS COORDINATOR.KIT Anesthesia Postop Eval I: Summary Notes Anesthesia Complication No 07/11/24 09:01 HUMAN RESOURCES OPERATIONS COORDINATOR.KIT Anesthesia Complication Comment: Post-operative progress note Anesthesia: Postop Eval II Evaluation Mental status: Awake and Calm Pain Level: 0 nausea: No Vomiting: No Complications Anesthesia Complication: No
--- NOTE | 2024-07-11 09:01 | PCM.POSTANE2 ---
Anesthesia Postop Eval I Sum Postop Eval Completion status Anesthesia document: Postop Eval 1 completed: Yes Anesthesia Postop Eval I Summary Anesthesia Postop Eval I Summary: Anesthesia Postop Eval I: Assessment Summary Airway patent Yes 07/11/24 09:01 DIGITAL CARTOGRAPHER.MDPEDRO LUIS Spontaneous unlabored Yes 07/11/24 09:01 DIGITAL CARTOGRAPHER.KIT respirations Mental status Awake,Calm 07/11/24 09:01 DIGITAL CARTOGRAPHER.MDOT nausea No 07/11/24 09:01 DIGITAL CARTOGRAPHER.OT Vomiting No 07/11/24 09:01 DIGITAL CARTOGRAPHER.KIT Anesthesia Postop Eval I: Fluid Summary Crystalloid volume administer 15 07/11/24 09:01 DIGITAL CARTOGRAPHER.MDOT (ml) Colloids volume administered ( ml) Blood Product volume administered (ml) Total IV fluid infused 15 07/11/24 09:01 DIGITAL CARTOGRAPHER.KIT Anesthesia Postop Eval I: Summary Notes Anesthesia Complication No 07/11/24 09:01 DIGITAL CARTOGRAPHER.KIT Anesthesia Complication Comment: Post-operative progress note Anesthesia: Postop Eval II Evaluation Mental status: Awake and Calm Pain Level: 0 nausea: No Vomiting: No Complications Anesthesia Complication: No
--- NOTE | 2024-07-11 09:55 | POSTOPAN2_ITS ---
Anesthesia Postop Eval I Sum Postop Eval Completion status Anesthesia document: Postop Eval 1 completed: Yes Anesthesia Postop Eval I Summary Anesthesia Postop Eval I Summary: Anesthesia Postop Eval I: Assessment Summary Airway patent Yes 07/11/24 09:01 DECORATING INSTRUCTOR.KIT Spontaneous unlabored Yes 07/11/24 09:01 DECORATING INSTRUCTOR.KIT respirations Mental status Awake,Calm 07/11/24 09:01 DECORATING INSTRUCTOR.MDOT nausea No 07/11/24 09:01 DECORATING INSTRUCTOR.OT Vomiting No 07/11/24 09:01 DECORATING INSTRUCTOR.KIT Anesthesia Postop Eval I: Fluid Summary Crystalloid volume administer 15 07/11/24 09:01 DECORATING INSTRUCTOR.MDOT (ml) Colloids volume administered ( ml) Blood Product volume administered (ml) Total IV fluid infused 15 07/11/24 09:01 DECORATING INSTRUCTOR.KIT Anesthesia Postop Eval I: Summary Notes Anesthesia Complication No 07/11/24 09:01 DECORATING INSTRUCTOR.KIT Anesthesia Complication Comment: Post-operative progress note Anesthesia: Postop Eval II Evaluation Mental status: Awake Pain Level: 0 nausea: No Vomiting: No
--- NOTE | 2024-07-11 09:55 | PCM.POSTANE2 ---
Anesthesia Postop Eval I Sum Postop Eval Completion status Anesthesia document: Postop Eval 1 completed: Yes Anesthesia Postop Eval I Summary Anesthesia Postop Eval I Summary: Anesthesia Postop Eval I: Assessment Summary Airway patent Yes 07/11/24 09:01 WATER PROJECT ENGINEER.KIT Spontaneous unlabored Yes 07/11/24 09:01 WATER PROJECT ENGINEER.KIT respirations Mental status Awake,Calm 07/11/24 09:01 WATER PROJECT ENGINEER.MDOT nausea No 07/11/24 09:01 WATER PROJECT ENGINEER.OT Vomiting No 07/11/24 09:01 WATER PROJECT ENGINEER.KIT Anesthesia Postop Eval I: Fluid Summary Crystalloid volume administer 15 07/11/24 09:01 WATER PROJECT ENGINEER.MDOT (ml) Colloids volume administered ( ml) Blood Product volume administered (ml) Total IV fluid infused 15 07/11/24 09:01 WATER PROJECT ENGINEER.KIT Anesthesia Postop Eval I: Summary Notes Anesthesia Complication No 07/11/24 09:01 WATER PROJECT ENGINEER.KIT Anesthesia Complication Comment: Post-operative progress note Anesthesia: Postop Eval II Evaluation Mental status: Awake Pain Level: 0 nausea: No Vomiting: No
--- NOTE | 2024-07-14 15:27 | OP.EGD_ITS ---
Patient Name: Samantha High Procedure Date: 07/11/2024 8:37 AM Date of : 1955 Age: 69 Procedure: Upper GI endoscopy Indications: Epigastric abdominal pain, Peptic ulcer Providers: Bright Wheeler DO Referring MD: Tani Grey MD Medicines: Monitored Anesthesia Care Patient Profile: This is a 69 year old female. Refer to note in patient chart for documentation of history and physical. Patient has symptoms of acute epigastric abdominal pain. Complications: No immediate complications. Procedure: Pre-Anesthesia Assessment: - Prior to the procedure, a History and Physical was performed, and patient medications and allergies were reviewed. The patient is competent. The risks and benefits of the procedure and the sedation options and risks were discussed with the patient. All questions were answered and informed consent was obtained. Patient identification and proposed procedure were verified by the physician in the pre-procedure area. Mental Status Examination: alert and oriented. Airway Examination: normal oropharyngeal airway and neck mobility. Respiratory Examination: clear to auscultation. CV Examination: normal. Prophylactic Antibiotics: The patient does not require prophylactic antibiotics. Prior Anticoagulants: The patient has taken no anticoagulant or antiplatelet agents. ASA Grade Assessment: II - A patient with mild systemic disease. After reviewing the risks and benefits, the patient was deemed in satisfactory condition to undergo the procedure. The anesthesia plan was to use monitored anesthesia care (MAC). Immediately prior to administration of medications, the patient was re-assessed for adequacy to receive sedatives. The heart rate, respiratory rate, oxygen saturations, blood pressure, adequacy of pulmonary ventilation, and response to care were monitored throughout the procedure. The physical status of the patient was re-assessed after the procedure. After obtaining informed consent, the endoscope was passed under direct vision. Throughout the procedure, the patient's blood pressure, pulse, and oxygen saturations were monitored continuously. The Endoscope was introduced through the mouth, and advanced to the third part of duodenum. The upper GI endoscopy was accomplished without difficulty. The patient tolerated the procedure well. Scope In: 8:46:03 AM Scope Out: 8:52:50 AM Total Procedure Duration Time 0 hours 6 minutes 47 seconds Findings: The Z-line was irregular and was found 39 cm from the incisors. Biopsies were taken with a cold forceps for histology. Verification of patient identification for the specimen was done. Estimated blood loss was minimal. A hiatal hernia was present. Three non-bleeding cratered gastric ulcers with no stigmata of bleeding were found in the gastric antrum. The largest lesion was 5 mm in largest dimension. Biopsies were taken with a cold forceps for histology. Verification of patient identification for the specimen was done. Estimated blood loss was minimal. Patchy mildly erythematous mucosa without active bleeding and with no stigmata of bleeding was found in the duodenal bulb. Biopsies were taken with a cold forceps for histology. Verification of patient identification for the specimen was done. Estimated blood loss was minimal. Impression: - Z-line irregular, 39 cm from the incisors. Biopsied. - Hiatal hernia. - Non-bleeding gastric ulcers with no stigmata of bleeding. Biopsied. - Erythematous duodenopathy. Biopsied. Recommendation: - Discharge patient to home. - Resume previous diet. - Continue present medications. - Await pathology results. - Smoking cessation to alloww the ulcers to heal Procedure Code(s): --- Professional --- 35636, Esophagogastroduodenoscopy, flexible, transoral; with biopsy, single or multiple CPT copyright 2021 [employer]. All rights reserved. The codes documented in this report are preliminary and upon county nurse review may be revised to meet current compliance requirements. Bright Wheeler DO 07/11/2024 9:00:33 AM This report has been signed electronically. Number of Addenda: 0 Note Initiated On: 07/11/2024 8:37 AM
--- NOTE | 2024-07-14 15:27 | OP.CCLET_ITS ---
07/11/2024 Tani Grey MD [address] [place] [address] Re : Upper GI endoscopy procedure for Samantha High Dear Dr. Grey This procedure was performed on Thursday, July 11, 2024. My impressions and recommendations are as follows: Impressions : - Z-line irregular, 39 cm from the incisors. Biopsied. - Hiatal hernia. - Non-bleeding gastric ulcers with no stigmata of bleeding. Biopsied. - Erythematous duodenopathy. Biopsied. Recommendations : - Discharge patient to home. - Resume previous diet. - Continue present medications. - Await pathology results. - Smoking cessation to alloww the ulcers to heal My findings are described in the full procedure note, which is enclosed. If I can be of further assistance, please feel free to contact me at . Sincerely, Bright Wheeler, 07/11/2024 9:00:33 AM This report has been signed electronically.
== END 2024-07-11 09:43 | disposition home or self-care (01) ==
LOC: EN 05:45 → AC 05:46
PROVIDERS: PCP Family Medicine Geriatric Medicine; Referring Provider Family Medicine Geriatric Medicine; Visit Provider Internal Medicine Gastroenterology
PROC: 0DJ08ZZ Inspection of Upper Intestinal Tract, Via Natural or Artificial Opening Endoscopic (ICD-10-PCS; CPT 43235; principal; 2024-07-11 06:55)
DX: K25.9 Gastric ulcer, unspecified as acute or chronic, without hemorrhage or perforation (principal); K44.9 Diaphragmatic hernia without obstruction or gangrene; K21.9 Gastro-esophageal reflux disease without esophagitis; R10.2 Pelvic and perineal pain; Z79.899 Other long term (current) drug therapy
CPT/HCPCS: 43239; 88305; 88312; 88342; A4216

== ENCOUNTER → 2024-07-14 | Outpatient (CLI) | payer MEDICARE, SELFPAY ==
--- NOTE | 2024-07-14 15:26 | US_ITS ---
INDICATION: pain EXAMINATION: Ultrasound US Pelvis Non OB Limited With Transvaginal Imaging TECHNIQUE: Transabdominal and transvaginal (for optimal evaluation of the adnexa) pelvic ultrasound was performed. Grayscale, spectral waveform, and color flow Doppler evaluation of the adnexa. COMPARISON: No relevant prior comparison study available FINDINGS: UTERUS: Retroflexed. The uterus measures 6.3 x 4.2 x 2.4 cm. There are 2 small masses in the uterus consistent with uterine fibroids measuring about 8 mm and 9 mm. The endometrial stripe measures 3.2 mm in AP diameter which is within normal limits. RIGHT OVARY: 2.8 x 1 x 0.8 cm. Non-enlarged, normal echogenicity. There is normal arterial inflow and venous outflow present in the right ovary. LEFT OVARY: Not visualized. FREE FLUID: None. US/Pelvic w/ Transvaginal IMPRESSION: 1. Small uterine fibroids. 2. Nonvisualization of the left ovary. Electronically Signed: Aryan Alatorre MD at 14:01 EDT ,
== END | disposition home or self-care (01) ==
LOC: US 15:25
PROVIDERS: PCP Family Medicine Geriatric Medicine; Referring Provider Nurse Practitioner Women's Health; Visit Provider Nurse Practitioner Women's Health
DX: R10.2 Pelvic and perineal pain (principal)
CPT/HCPCS: 76830; 76856

== ENCOUNTER → 2024-08-18 | Outpatient (CLI) | payer MEDICARE, SELFPAY | END | disposition home or self-care (01) | LOC: OPBI 10:03 | PROVIDERS: PCP Family Medicine Geriatric Medicine; Referring Provider Student in an Organized Health Care Education/Training Program; Visit Provider Student in an Organized Health Care Education/Training Program | DX: Z12.31 Encounter for screening mammogram for malignant neoplasm of breast (principal) | CPT/HCPCS: 77063; 77067 ==

== ENCOUNTER → 2024-08-19 | Outpatient (CLI) | payer MEDICARE, SELFPAY ==
[2024-08-19 10:48] LABS: Absolute Lymphocyte Count 1.59 X10^3/uL (0.83-4.51); Absolute Neutrophil Count 2.3 X10^3/uL (2.0-7.7); Basophil# 0.03 X10^3/uL; Basophil% 0.7 % (0-1); Eosinophil# 0.08 X10^3/uL; Eosinophils% 1.8 % (0-5); Hematocrit 30.9 % (37-47); Hemoglobin 9.3 g/dL (12.0-15.0); Lymphocyte # 1.59 X10^3/ul (0.83-4.51); Lymphocyte % 36.2 % (19-41); Mean Corp Hgb Conc 30.1 g/dL (32-36); Mean Corpuscular Volume 76.3 fL (81-99); Mean Platelet Vol. 11.4 fl (6.2-12.0); Monocyte# 0.34 X10^3/uL; Monocyte% 7.7 % (0-10); NRBC Flagged by Analyzer 0 % (0-5); Neutrophil # 2.33 X10^3/uL (2.7-7.7); Neutrophil % 53.1 % (47-70); Platelet Count 227 K/mm3 (150-450); RBC Distribution Width CV 14.8 % (11.6-14.6); RBC Distribution Width SD 41.2 fl (35.1-43.9); Red Blood Count 4.05 M/mm3 (4.2-5.4); White Blood Count 4.4 K/mm3 (4.4-11.0)
[2024-08-19 11:15] LABS: Vitamin D,25 Hydroxy 46.2 ng/mL
[2024-08-19 11:16] LABS: ALB/GLOB Ratio 1.3 RATIO (0.9-2.4); AST(SGOT) 14 U/L (15-37); Alanine Aminotransfer ALT/SGPT 17 U/L (13-56); Albumin, Serum 3.7 g/dL (3.2-5.0); Alkaline Phosphatase 64 U/L (45-117); Anion Gap 4 (5-15); BUN 21 mg/dL (7-18); BUN/Creat Ratio 15.3 RATIO (10-20); Calcium,Total 9.4 mg/dL (8.5-10.1); Chloride 106 mmol/L (98-107); Creatinine, Serum 1.37 mg/dL (0.55-1.02); EST Glomerular Filtration Rate 41 mL/min (>60); Est Glom Filt Rate - Afr Amer 49 mL/min (>60); Globulin 2.9 g/dL (2.2-4.2); Glucose 90 mg/dL (74-106); Potassium 3.9 mmol/L (3.5-5.1); Protein, Total 6.6 g/dL (6.4-8.2); Sodium Level 139 mmol/L (136-145)
== END | disposition home or self-care (01) ==
LOC: POLAB3 10:17
PROVIDERS: PCP Family Medicine Geriatric Medicine; Visit Provider Family Medicine Geriatric Medicine
DX: I10 Essential (primary) hypertension (principal); E55.9 Vitamin D deficiency, unspecified
CPT/HCPCS: 36415; 80053; 82306; 84443; 85025

== ENCOUNTER → 2024-08-25 | Outpatient (CLI) | payer MEDICARE, SELFPAY | END | disposition home or self-care (01) | LOC: LABSPEC 11:11 | PROVIDERS: PCP Family Medicine Geriatric Medicine; Referring Provider Family Medicine Geriatric Medicine; Visit Provider Family Medicine Geriatric Medicine | DX: D64.9 Anemia, unspecified (principal) | CPT/HCPCS: 82274 ==

== ENCOUNTER → 2024-08-26 | Outpatient (CLI) | payer MEDICARE, SELFPAY ==
--- NOTE | 2024-08-26 14:28 | CT_ITS ---
STUDY: LOW DOSE CT LUNG CANCER SCREENING REASON FOR EXAM: Female, 69 years old. Lung cancer screening -- and gt;20 pk yr hx;current smoker; asymptomtic RADIATION DOSAGE (If Supplied By Facility): CTDIvol = ( 1.59 ) mGy, DLP = ( 53.81 ) mGycm TECHNIQUE: No contrast was administered. Low dose technique was utilized (average mAS-38 and kVp 120). 1.25 mm axial source images with a slice interval of 1.25-mm were reconstructed in lung windows. 2.5 mm axial source images with a slice interval of 2.5-mm were reconstructed in lung windows. 5.0 mm axial source images with a slice interval of 5.0-mm were reconstructed in soft tissue windows. COMPARISON: Comparison is made with prior study dated August 14, 2023. NODULES: No suspicious nodule is seen. Emphysema: Hyperinflation. Stable emphysematous changes in both lungs. Endobronchial lesion: None Aorta: Atherosclerotic plaque formation of the aortic arch and descending thoracic aorta. CORONARY ARTERIES: Coronary artery calcification is seen. Heart: Unremarkable Pulmonary artery: Unremarkable Mediastinal nodes: Unremarkable Other chest and abdominal findings: CT/Low Dose CT Lung Screening IMPRESSION: Lung-RADS category 2 - Continue annual screening with LDCT in 12 months. IMPORTANT NOTES FOR USE: ACR Lung-RADS Version 1.1 Assessment Categories Release Date: 2018 Category: Coded 0-4 bases on nodule(s) with highest degree of suspicion. Negative screen is defined as categories 1 and 2; a positive screen is defined as categories 3 and 4. Category 3 and 4A nodules that are unchanged on interval CT should be coded as category 2, and individuals returned to screening in 12 months. Category 4X: Category 3 or 4 nodules with additional imaging findings that increase the suspicion of lung cancer, such as spiculation, GGN that doubles in size in 1 year, enlarged lymph notes, etc. Category Modifiers: S (significant finding unrelated to lung cancer) Electronically Signed: Dae Love MD at 14:48 EST ,
== END | disposition home or self-care (01) ==
LOC: CT 13:43
PROVIDERS: PCP Family Medicine Geriatric Medicine; Referring Provider Nurse Practitioner Family; Visit Provider Nurse Practitioner Family
DX: Z12.2 Encounter for screening for malignant neoplasm of respiratory organs (principal); Z87.891 Personal history of nicotine dependence
CPT/HCPCS: 71271

== ENCOUNTER → 2024-09-30 | Outpatient (CLI) | payer MEDICARE, SELFPAY ==
--- NOTE | 2024-09-30 10:52 | ART_ITS ---
Reason For Study: PVD Procedure A bilateral lower extremity continuous wave Doppler with analog waveform analysis and ankle brachial indexes. Left Segmental Pressures Left brachial= 163mmHg. Left posterior tibial artery = 198mmHg. Left dorsalis pedis artery = 196mmHg. Left digit = 144 mmHg. The left dorsalis pedis waveforms are triphasic. The left posterior tibial artery waveforms are triphasic. Right Segmental Pressures Right brachial= 168mmHg. Right posterior tibial artery = 206mmHg. Right dorsalis pedis artery = 203mmHg. Right digit = 167 mmHg. The right dorsalis pedis waveforms are triphasic. The right posterior tibial artery waveforms are triphasic. Indices The right ankle brachial index by the dorsalis pedis is 1.21. The right ankle brachial index by the posterior tibial artery is 1.23. The right digital-brachial index is 0.99. The left ankle brachial index by the dorsalis pedis is 1.17. The left ankle brachial index by the posterior tibial artery is 1.18. The left digital-brachial index is 0.86. VL/Ankle Brachial Index Interpretation Summary Right ORLY 1.23, normal. TBI and Doppler/PVR waveforms of the right ankle normal at rest. Left ORLY 1.18, normal. TBI and Doppler/PVR waveforms of the left ankle normal a t rest. Ordering Physician: Tani Grey Chi Referring Physician: TANI GREY CHI, MD Performed By: Afia Ring RVT and Student
== END | disposition home or self-care (01) ==
PROVIDERS: PCP Family Medicine Geriatric Medicine; Referring Provider Family Medicine Geriatric Medicine; Visit Provider Family Medicine Geriatric Medicine
DX: I73.9 Peripheral vascular disease, unspecified (principal)
CPT/HCPCS: 93922

== ENCOUNTER → 2024-10-23 | Outpatient (CLI) | payer MEDICARE, SELFPAY ==
[2024-10-23 12:02] LABS: Hematocrit 28.3 % (37-47); Hemoglobin 8.1 g/dL (12.0-15.0); Mean Corp Hgb Conc 28.6 g/dL (32-36); Mean Corpuscular Hgb 20.7 pg (27.0-32.0); Mean Corpuscular Volume 72.4 fL (81-99); Mean Platelet Vol. 10.8 fl (6.2-12.0); Platelet Count 280 K/mm3 (150-450); RBC Distribution Width CV 16.1 % (11.6-14.6); RBC Distribution Width SD 41.6 fl (35.1-43.9); Red Blood Count 3.91 M/mm3 (4.2-5.4); White Blood Count 4.5 K/mm3 (4.4-11.0)
[2024-10-23 12:29] LABS: Albumin, Serum 3.7 g/dL (3.2-5.0); BUN 15 mg/dL (7-18); BUN/Creat Ratio 15.6 RATIO (10-20); Calcium,Total 9.3 mg/dL (8.5-10.1); Chloride 110 mmol/L (98-107); Creatinine, Serum 0.96 mg/dL (0.55-1.02); EST Glomerular Filtration Rate 61 mL/min (>60); Est Glom Filt Rate - Afr Amer 74 mL/min (>60); Glucose 102 mg/dL (74-106); Phosphorus 2.2 mg/dL (2.5-4.9); Potassium 3.7 mmol/L (3.5-5.1); Sodium Level 142 mmol/L (136-145)
[2024-10-23 12:30] LABS: Vitamin D,25 Hydroxy 43.2 ng/mL
== END | disposition home or self-care (01) ==
LOC: LAB 10-24 07:35
PROVIDERS: PCP Family Medicine Geriatric Medicine; Referring Provider Internal Medicine Nephrology; Visit Provider Internal Medicine Nephrology
DX: N18.31 Chronic kidney disease, stage 3a (principal); E83.52 Hypercalcemia; D50.9 Iron deficiency anemia, unspecified
CPT/HCPCS: 36415; 80069; 82306; 82728; 83540; 83550; 85027

== ENCOUNTER → 2024-11-14 | Outpatient (CLI) | payer MEDICARE, SELFPAY ==
--- NOTE | 2024-11-14 12:21 | CT_ITS ---
PROCEDURE: CTA ABD W/RUNOFF W/WO CONTRAST REASON FOR EXAM: 2 year history of lower abdominal/pelvic pain. History of breast cancer. TECHNIQUE: CTA imaging of the abdomen, pelvis, and lower extremities with intravenous contrast. 3D reconstructions. IV CONTRAST: 78 mL of Isovue 370. COMPARISON: None. FINDINGS: Minimal linear atelectasis and/or scarring at the right lung base. Aorta: Abdominal aorta is normal in size. Atherosclerotic plaque formation.. No evidence of aneurysm or dissection. Celiac: Normal. SMA: Normal. MAURICE : Normal. Right Renal: Normal. Left Renal: Normal. RIGHT Iliac Arteries: Common Iliac: Minimal nonobstructive plaque formation. External Iliac: Normal. Internal Iliac: Normal. LEFT Iliac Arteries: Common Iliac: Minimal nonobstructive calcific plaque formation. External Iliac: Normal. Internal Iliac: Normal. RIGHT Lower Extremity: Common Femoral: Normal. Superficial Femoral: Normal. Deep Femoral: Normal. Popliteal: Normal. Anterior Tibial: Normal. Tibioperoneal Trunk: Normal. Posterior Tibial: Normal. Peroneal: Normal. Dorsalis Pedis: Opacified LEFT Lower Extremity: Common Femoral: Normal. Superficial Femoral: Normal. Deep Femoral: Normal. Popliteal: Normal. Anterior Tibial: Normal. Tibioperoneal Trunk: Normal. Posterior Tibial: Normal. Peroneal: Normal. Dorsalis Pedis: Opacified Other Stents/Grafts: None. Other Findings: The visualized abdominal and pelvic viscera are unremarkable. No ascites or lymphadenopathy. Bone windows are unremarkable. CT/CTA Abd w/Runoff W/WO Contrast IMPRESSION: Scattered atherosclerotic plaque formation of the abdominal aorta and right and left common iliac arteries. One or more dose reduction techniques were used (e.g., Automated exposure contr ol, adjustment of the mA and/or kV according to patient size, use of iterative reconstruction technique). Reading Location: [place] [id number]
[2024-11-14 13:18] LABS: Absolute Lymphocyte Count 1.35 X10^3/uL (0.83-4.51); Absolute Neutrophil Count 2.8 X10^3/uL (2.0-7.7); Basophil# 0.04 X10^3/uL; Basophil% 0.9 % (0-1); Eosinophil# 0.09 X10^3/uL; Eosinophils% 1.9 % (0-5); Hematocrit 24.9 % (37-47); Hemoglobin 7.3 g/dL (12.0-15.0); Lymphocyte # 1.35 X10^3/ul (0.83-4.51); Lymphocyte % 28.8 % (19-41); Mean Corp Hgb Conc 29.3 g/dL (32-36); Mean Corpuscular Hgb 20.4 pg (27.0-32.0); Mean Corpuscular Volume 69.7 fL (81-99); Mean Platelet Vol. 10.9 fl (6.2-12.0); Monocyte# 0.39 X10^3/uL; Monocyte% 8.3 % (0-10); NRBC Flagged by Analyzer 0 % (0-5); Neutrophil # 2.79 X10^3/uL (2.7-7.7); Neutrophil % 59.7 % (47-70); Platelet Count 223 K/mm3 (150-450); RBC Distribution Width CV 16.3 % (11.6-14.6); RBC Distribution Width SD 41.1 fl (35.1-43.9); Red Blood Count 3.57 M/mm3 (4.2-5.4); White Blood Count 4.7 K/mm3 (4.4-11.0)
[2024-11-14 14:18] LABS: Vitamin D,25 Hydroxy 53.5 ng/mL
[2024-11-14 14:32] LABS: ALB/GLOB Ratio 1.2 RATIO (0.9-2.4); AST(SGOT) 11 U/L (15-37); Alanine Aminotransfer ALT/SGPT 13 U/L (13-56); Albumin, Serum 3.4 g/dL (3.2-5.0); Alkaline Phosphatase 55 U/L (45-117); Anion Gap 5 (5-15); BUN 17 mg/dL (7-18); BUN/Creat Ratio 15.6 RATIO (10-20); Chloride 107 mmol/L (98-107); Creatinine, Serum 1.09 mg/dL (0.55-1.02); EST Glomerular Filtration Rate 53 mL/min (>60); Est Glom Filt Rate - Afr Amer 64 mL/min (>60); Globulin 2.9 g/dL (2.2-4.2); Glucose 87 mg/dL (74-106); Potassium 3.9 mmol/L (3.5-5.1); Protein, Total 6.3 g/dL (6.4-8.2); Sodium Level 139 mmol/L (136-145)
== END | disposition home or self-care (01) ==
PROVIDERS: PCP Family Medicine Geriatric Medicine; Referring Provider Family Medicine Geriatric Medicine; Visit Provider Family Medicine Geriatric Medicine
DX: R10.9 Unspecified abdominal pain (principal); K55.9 Vascular disorder of intestine, unspecified; I10 Essential (primary) hypertension; E55.9 Vitamin D deficiency, unspecified
CPT/HCPCS: 36415; 75635; 80053; 82306; 84443; 85025

== ENCOUNTER → 2024-11-26 | Outpatient (CLI) | payer MEDICARE, SELFPAY ==
--- NOTE | 2024-11-26 08:49 | RDU_ITS ---
Reason For Study Reason For Study: CKD stage 3 Right Renal Artery Left Renal Artery Right renal artery ostium 83/11.8 Left renal artery ostium 125.3/15.7 RSV/EDV. PSV/EDV. Right renal artery proximal 110.7/17.5 Left renal artery proximal PSV/EDV PSV/EDV. 79.6/10 . Right renal artery mid 130.8/24.8 Left renal artery mid 84.1/10.4 PSV/EDV . PSV/EDV. Left renal artery distal 83.7/20 PSV/EDV. Right renal artery distal 94.5/14 Left RAR 1.71. PSV/EDV. Left Renal Parenchyma Right RAR 1.79. Left upper pole medulla 22.3/5.3 Right Renal Parenchyma PSV/EDV . Upper Pole Medula 29.2/5.1 PSV/EDV. Left upper pole medulla EDR 0.2 . Right upper pole medulla EDR 0.2 . Left upper pole medulla R.I. 0.76 . Right upper pole medulla R.I. 0.83 . UP Cortex 14.7/3.9 PSV/EDV. Upper Carlos Cortx 13.2/4 PSV/EDV. Left upper pole cortex EDR 0.3 . Right upper pole cortex EDR 0.3 . Left upper pole cortex R.I. 0.74 . Right upper pole cortex R.I. 0.70 . Left lower Pole medulla 21.8/5.3 Right lower Pole medulla 30.1/6.5 PSV/EDV . PSV/EDV . Left lower pole medulla EDR 0.2 . Right lower pole medulla EDR 0.2 . Left lower pole medulla R.I. 0.76 . Right lower pole medulla R.I. 0.78 . Lower Pole Cortx 15.2/3.9 PSV/EDV. Lower Pole Cortex 14.4/3.9 PSV/EDV. Left lower pole cortex EDR 0.3 . Right lower pole cortex EDR 0.3 . Left lower pole cortex R.I. 0.75 . Right lower pole cortex R.I. 0.73 . Left Renal Hilar Right Renal Hilar LT Hilar avg 61.1/9.6 PSV/EDV . Right Hilar avg 57.6/9.4 PSV/EDV. Left hilar acceleration time 30 m/sec. Right hilar acceleration time 60 m/sec. Left Renal Dimensions Right Renal Dimensions Left kidney size 8.46 cm . Right kidney size 9.21 cm . Left cortical dimension 1.29 cm . Right cortical dimension 1.54 cm . Aorta Proximal abdominal aorta 1.90 x 1.88 cm . Proximal abdominal aorta peak systolic velocity is 73.2 cm/sec . Distal abdominal aorta 1.43 x 1.43 cm . Distal abdominal aorta peak systolic velocity is 67.1 cm/sec . VL/Renal Artery Duplex Ultrasound Interpretation Summary Right renal artery patent with normal velocities and no evidence of stenosis. Left renal artery patent with normal velocities and no evidence of stenosis. Right renal vein patent. Left renal vein patent. Right kidney normal in size. Left kidney diminshed in size. Ordering Physician: Radha Brothers Referring Physician: Tani Grey Chi Performed By: Afia Ring RVT
[2024-11-26 11:00] LABS: Ferritin 9 ng/mL (22-378); Iron 35 ug/dL (50-170); Iron Binding Capacity,Unsat 458 ug/dL (228-428)
[2024-11-27 14:31] LABS: Iron Binding Capacity,Total 493 ug/dL (250-450)
[2024-11-27 14:32] LABS: PERCENT IRON SATURATION 7.1 % (15.0-55.0)
== END | disposition home or self-care (01) ==
LOC: CVS 08:47
PROVIDERS: PCP Family Medicine Geriatric Medicine; Referring Provider Internal Medicine Nephrology; Visit Provider Internal Medicine Nephrology
DX: N18.31 Chronic kidney disease, stage 3a (principal); D50.9 Iron deficiency anemia, unspecified
CPT/HCPCS: 36415; 82728; 83540; 83550; 93975

== ENCOUNTER 2024-12-05 10:55 | Outpatient (CLI) | payer MEDICARE, SELFPAY ==
[2024-12-05 11:03] VITALS: BP 161/74; PULSE 92; RESP 18; O2SAT 93
[2024-12-05] MEDS: 0.9% NaCl Peripheral Flush Adult IV (11:06)
[2024-12-05] MEDS: 0.9% Normal Saline (100mL Bag) 100 ML 15 ML IV (11:09)
[2024-12-05] MEDS: Iron Sucrose Complex 200 MG in 0.9% Normal Saline (100mL Bag) 100 ML 220 MG IV (11:11)
[2024-12-05 12:15] VITALS: BP 146/62; PULSE 77; RESP 14; O2SAT 93
== END 2024-12-05 23:59 | disposition home or self-care (01) ==
LOC: MEDOUTP 10:55
PROVIDERS: PCP Family Medicine Geriatric Medicine; Referring Provider Family Medicine Geriatric Medicine; Visit Provider Family Medicine Geriatric Medicine
DX: D64.9 Anemia, unspecified (principal)
CPT/HCPCS: 96365; 82274; J1756; A4216

== ENCOUNTER 2024-12-08 12:48 | Outpatient (CLI) | payer MEDICARE, SELFPAY ==
[2024-12-08 12:58] VITALS: BP 169/67; PULSE 86; RESP 14; TEMP 35.9; O2SAT 96; BMI 25.2
[2024-12-08] MEDS: 0.9% NaCl Peripheral Flush Adult IV (13:00)
[2024-12-08] MEDS: Iron Sucrose Complex 200 MG in 0.9% Normal Saline (100mL Bag) 100 ML 220 MG IV (13:36)
[2024-12-08] MEDS: 0.9% Normal Saline (100mL Bag) 100 ML 15 ML IV (13:36)
[2024-12-08 14:19] VITALS: BP 148/62; PULSE 80
== END 2024-12-08 23:59 | disposition home or self-care (01) ==
LOC: MEDOUTP 12:48
PROVIDERS: PCP Family Medicine Geriatric Medicine; Referring Provider Family Medicine Geriatric Medicine; Visit Provider Family Medicine Geriatric Medicine
DX: D64.9 Anemia, unspecified (principal)
CPT/HCPCS: 96365; J1756; A4216

== ENCOUNTER 2024-12-10 12:35 | Outpatient (CLI) | payer MEDICARE, SELFPAY ==
[2024-12-10 12:52] VITALS: BP 180/75; PULSE 105; RESP 16; TEMP 36.3; O2SAT 100; BMI 25.0
[2024-12-10] MEDS: 0.9% NaCl Peripheral Flush Adult IV (12:54)
[2024-12-10] MEDS: 0.9% Normal Saline (100mL Bag) 100 ML 15 ML IV (12:54)
[2024-12-10] MEDS: Iron Sucrose Complex 200 MG in 0.9% Normal Saline (100mL Bag) 100 ML 220 MG IV (13:09)
[2024-12-10 13:57] VITALS: BP 152/70; PULSE 81; RESP 16; TEMP 36.6; O2SAT 94
== END 2024-12-10 23:59 | disposition home or self-care (01) ==
LOC: MEDOUTP 12:35
PROVIDERS: PCP Family Medicine Geriatric Medicine; Referring Provider Family Medicine Geriatric Medicine; Visit Provider Family Medicine Geriatric Medicine
DX: D64.9 Anemia, unspecified (principal)
CPT/HCPCS: 96365; J1756; A4216

== ENCOUNTER 2024-12-12 10:43 | Outpatient (CLI) | payer MEDICARE, SELFPAY ==
[2024-12-12 10:50] VITALS: BP 152/66; PULSE 81; RESP 16; TEMP 35.9; O2SAT 95; BMI 24.7
[2024-12-12] MEDS: Iron Sucrose Complex 200 MG in 0.9% Normal Saline (100mL Bag) 100 ML 220 MG IV (11:14)
[2024-12-12] MEDS: 0.9% NaCl IVPB Med Flush (100mL) 15 ML IV (11:14)
[2024-12-12 12:06] VITALS: BP 136/57; PULSE 79; RESP 16; TEMP 36.6; O2SAT 98
== END 2024-12-12 23:59 | disposition home or self-care (01) ==
LOC: MEDOUTP 10:43
PROVIDERS: PCP Family Medicine Geriatric Medicine; Referring Provider Family Medicine Geriatric Medicine; Visit Provider Family Medicine Geriatric Medicine
DX: D64.9 Anemia, unspecified (principal)
CPT/HCPCS: 96365; J1756; A4216

== ENCOUNTER 2024-12-15 12:42 | Outpatient (CLI) | payer MEDICARE, SELFPAY ==
[2024-12-15 13:04] VITALS: BP 160/67; PULSE 91; RESP 16; TEMP 36.1; O2SAT 95; BMI 24.7
[2024-12-15] MEDS: 0.9% NaCl IVPB Med Flush (100mL) 15 ML IV (13:06)
[2024-12-15] MEDS: Iron Sucrose Complex 200 MG in 0.9% Normal Saline (100mL Bag) 100 ML 220 MG IV (13:15)
[2024-12-15 14:03] VITALS: BP 135/66; PULSE 80; RESP 16; TEMP 36.1; O2SAT 97
== END 2024-12-15 23:59 | disposition home or self-care (01) ==
LOC: MEDOUTP 12:42
PROVIDERS: PCP Family Medicine Geriatric Medicine; Referring Provider Family Medicine Geriatric Medicine; Visit Provider Family Medicine Geriatric Medicine
DX: D64.9 Anemia, unspecified (principal)
CPT/HCPCS: 96365; J1756; A4216

== ENCOUNTER → 2024-12-23 | Outpatient (CLI) | payer MEDICARE, SELFPAY ==
--- NOTE | 2024-12-23 10:20 | US_ITS ---
PROCEDURE: EXT NON VASC LIMITED/SOFT TISS 12/23/2024 REASON FOR EXAM: RIGHT GROIN; MASS TECHNIQUE: Ultrasound targeted to the palpable abnormality at the right groin.. COMPARISON: None FINDINGS: The area of the palpable mass in the right groin was examined with ultrasound. No sonographic abnormality is seen. US/Ext Non Vasc Limited/Soft Tiss IMPRESSION: No sonographic abnormality is seen. Reading Location: [facility]
== END | disposition home or self-care (01) ==
LOC: US 10:18
PROVIDERS: PCP Family Medicine Geriatric Medicine; Referring Provider Nurse Practitioner Family; Visit Provider Nurse Practitioner Family
DX: R19.09 Other intra-abdominal and pelvic swelling, mass and lump (principal)
CPT/HCPCS: 76882

== ENCOUNTER 2025-01-08 17:12 | Emergency (ER) | payer MEDICARE, SELFPAY ==
[2025-01-08 17:13] VITALS: BP 159/89; PULSE 89; RESP 18; TEMP 37; O2SAT 95; BMI 22.4
--- NOTE | 2025-01-08 18:41 | EX.ED.VIS.HA ---
HPI History of Present Illness Chief Complaint: Headache Informant: patient and spouse/S.O. Narrative Narrative: Nontraumatic headache 3 days. Pain started bilateral trapezius up her neck around her head. No trauma. No arm weakness or paresthesias. History of ACDF years ago. Allergies to penicillin. Has not tried any medications. Symptoms worse with head movement. No nausea or vomiting. [facility] Medical History Right groin mass History of GI bleed Wears hearing aid Wears glasses Cancer Easy bruising History of ulceration Chronic constipation Gastric reflux Shortness of breath on exertion Emphysema, unspecified COPD (chronic obstructive pulmonary disease) History of pain when walking History of edema Hyperparathyroidism Abnormal ultrasound of breast Breast pain, right Encounter for screening for malignant neoplasm of lung Tobacco use disorder, continuous Encounter for screening for malignant neoplasm of lung in current smoker with 30 pack year history or greater Sciatic leg pain Wears dentures Post-menopausal Depression Anemia High cholesterol Back pain Chronic cough Hypertension Iron deficiency anemia due to chronic blood loss Osteopenia Invasive ductal carcinoma of right breast SOB (shortness of breath) Arthritis GERD (gastroesophageal reflux disease) Smoking greater than 30 pack years Emphysema lung Bronchitis Asthma Home Medications ?Medication ?Instructions ?Recorded ?Last Taken ?Type albuterol sulfate 90 mcg/actuation 2 puff inhalation Q4H PRN 06/23/20 07/04/21 Rx aerosol inhaler shortness of breath or wheezing #1 device pravastatin 40 mg tablet 40 mg PO QHS 05/14/23 07/11/24 History budesonide 160 mcg-glycopyr 9 2 inh inhalation BID 12/06/23 07/11/24 History mcg-formot 4.8 mcg/actuation HFA inhaler (Breztri Aerosphere) polysaccharide iron complex 150 mg 150 mg PO QDAY 02/07/24 07/11/24 History iron capsule potassium chloride 20 mEq 20 meq PO QDAY 02/07/24 07/11/24 History tablet,extended release amlodipine 5 mg tablet 10 mg PO DAILY 03/19/24 07/11/24 History bupropion HCl (smoking deter) 150 150 mg PO BID 04/29/24 07/11/24 History mg tablet,12 hr sustained-release(smoking deterrent) acetaminophen 500 mg tablet 500 mg PO Q6H PRN PRN Pain Score 05/13/24 Unknown Rx 1-10 #0 tabs cholecalciferol (vitamin D3) 125 125 mcg PO DAILY #30 caps 05/13/24 07/11/24 Rx mcg (5,000 unit) capsule dicyclomine 10 mg capsule 10 mg PO BID #30 caps 08/29/24 Unknown Rx baclofen 10 mg tablet 10 mg PO TID PRN abdominal pain 12/03/24 12/15/24 History omeprazole 40 mg capsule,delayed 40 mg PO DAILY 12/03/24 Unknown History release sucralfate 1 gram tablet 1 g PO TID 12/03/24 Unknown History venlafaxine 150 mg 150 mg PO DAILY 12/03/24 Unknown History capsule,extended release 24 hr vonoprazan 20 mg tablet (Voquezna) 20 mg PO DAILY PRN belly pain 12/03/24 Unknown History anastrozole 1 mg tablet 1 mg PO DAILY #90 tabs 12/22/24 Unknown Rx diazepam 5 mg tablet 5 mg PO Q8 PRN Muscle Spasm #10 01/08/25 Unknown Rx tabs Allergy/AdvReac Type Severity Reaction Status Date / Time latex AdvReac Intermediate rash Verified 01/08/25 17:13 Penicillins AdvReac Intermediate Rash Verified 01/08/25 17:13 Family History Mother Diabetes Hypertension Gastric ulcer Hyperlipidemia CVA (cerebral vascular accident) Father Diabetes COPD (chronic obstructive pulmonary disease) Hypertension Prostate cancer Aunt Breast cancer Surgical History H/O parathyroidectomy S/P parathyroidectomy S/P lumpectomy, right breast Hx of colonoscopy Hx of fusion of cervical spine Status post right breast lumpectomy History of tonsillectomy and adenoidectomy Hx of colonoscopy (~2019) H/O tubal ligation Social History Smoking Status: Current every day smoker tobacco type: cigarettes Tobacco: How many years used: 45 how long ago did patient quit smoking: down to only smoking 4 cigarettes/day second hand exposure: Yes quit status: considering quitting alcohol intake: current alcohol intake frequency: holidays/special occasions only substance use type: marijuana caffeine: Yes what type of physical activity do you participate in: none frequency: does not exercise laine/adventist: None seatbelt use: always do you feel safe at home: Yes additional social history: ROS ROS ED Constitutional Constitutional ED: Denies chills, fever(s) or sweats ENT ENT ED: Denies sore throat Cardiovascular Cardiovascular: Denies chest pain, leg edema, palpitations or racing heartbeat Respiratory/Chest Respiratory/Chest: Denies cough, dyspnea or dyspnea on exertion Gastrointestinal Gastrointestinal: Denies abdominal pain, diarrhea, nausea or vomiting Genitourinary Genitourinary ED: Denies dysuria, hematuria or urinary frequency Musculoskeletal Musculoskeletal: Reports neck pain; Denies back pain or extremity pain Integumentary Denies rash or wounds Neurologic Neurologic: Reports headache(s); Denies paresthesias or weakness EXAM Physical Exam Const Vital Signs: 01/08/25 17:13 Temperature 98.6 F Temperature Source Oral Pulse Rate 89 Respiratory Rate 18 Blood Pressure 159/89 H Blood Pressure Mean 112 Pulse Ox 95 Oxygen Delivery Method Room Air Positive well nourished and well developed General Appearance ED: well developed and NAD HEENT Reports moist mucous membranes normocephalic and atraumatic Eyes General Eye ED: Yes normal appearance of both eyes Neck no meningeal signs Neck Narrative: Bilateral paracervical tenderness. No midline tenderness. Healed anterior cervical scar at the base. Chest Wall Chest: Negative for tenderness Resp normal respiratory effort and normal air movement Effort and Inspection: symmetric chest movement; Negative for respiratory distress Cardio regular rate, regular rhythm and no murmurs Peripheral Pulses: pulses 2+ throughout GI normal to inspection, nondistended, normoactive bowel sounds and non-tender Palpation: Negative for guarding or rebound tenderness present Extremity normal to inspection General Extremety ED: Negative for edema or tenderness General Extremity: Negative for edema Neuro oriented x3, CN's II-XII intact bilaterally and no sensory deficits noted Sensorium / Orientation: awake and alert Skin no rashes or lesions noted and no wounds MDM MDM MDM Narrative Medical decision making narrative: Interventions / MDM: Differential diagnosis:Tension headache, cervical strain Diagnosis considered but do not suspect: No clinical meningitis My EKG interpretation: N/A Imaging independently reviewed and interpreted by myself: N/A External documents reviewed: N/A Test considered but not ordered:N/A ED course: Patient valuated discussed concerns for tension headache from cervical strain. History of gastric ulcers therefore will avoid NSAIDs. She agreed with muscle relaxers which I ordered Valium. Shortly afterwards with busy department, nurse reported patient wanted to go home and just sleep. I did prep paperwork with medications to be sent to her pharmacy. Prior to my reevaluation patient eloped without paperwork. Re-evaluation: stable Disposition discussed with patient/family/significant other: Patient eloped Case discussed with consulting clinician: N/A This note was generated with [employer] dictation software. It may contain incorrect words, spelling, and punctuation that were not noted in checking the note before signing. Discharge Plan Triage Chief Complaint: Headache ED Provider: Wilfrid Foster Dx/Rx/DC Orders Clinical Impression: Tension headache, Strain of neck Instructions: ED Headache, Tension, ED Neck Sprain or Strain Prescriptions: New diazepam [diazepam] 5 mg tablet 5 mg PO Q8 PRN (Reason: Muscle Spasm) Qty: 10 0RF No Action albuterol sulfate 90 mcg/actuation HFA aerosol inhaler 2 puff INHALATION Q4H PRN (Reason: shortness of breath or wheezing) Qty: 1 6RF Rx Instructions: administer with spacer pravastatin 40 mg tablet 40 mg PO QHS Patient Comments: TAKE 1 TABLET BY MOUTH EVERY DAY AT BEDTIME Breztri Aerosphere 160-9-4.8 mcg/actuation HFA aerosol inhaler 2 inh inhalation BID polysaccharide iron complex 150 mg iron capsule 150 mg PO QDAY potassium chloride 20 mEq tablet extended release 20 meq PO QDAY dicyclomine 10 mg capsule 10 mg PO BID Qty: 30 2RF anastrozole 1 mg tablet 1 mg PO DAILY Qty: 90 3RF sucralfate 1 gram tablet 1 g PO TID venlafaxine 150 mg capsule,extended release 24hr 150 mg PO DAILY baclofen 10 mg tablet 10 mg PO TID PRN (Reason: abdominal pain) Voquezna 20 mg tablet 20 mg PO DAILY PRN (Reason: belly pain) omeprazole 40 mg capsule,delayed release(DR/EC) 40 mg PO DAILY amlodipine 5 mg tablet 10 mg PO DAILY bupropion HCl (smoking deter) 150 mg tablet extended release 12 hr 150 mg PO BID acetaminophen 500 mg Tablet 500 mg PO Q6H PRN PRN (Reason: Pain Score 1-10) Qty: 0 0RF cholecalciferol (vitamin D3) 125 mcg (5,000 unit) capsule 125 mcg PO DAILY Qty: 30 0RF Primary Care Provider: Tani Grey Chi Referrals: Tani Grey Chi, MD [Primary Care Provider] - 3-5 Days Print Language: Belgian Disposition Disposition: Elopement Discharge Date/Time: 01/08/25 19:08
[2025-01-08] MEDS: diazePAM 5 MG Tablet PO (18:48)
== END 2025-01-08 19:08 | disposition left against medical advice (07) ==
PROVIDERS: Emergency Provider Emergency Medicine; PCP Family Medicine Geriatric Medicine; Visit Provider Emergency Medicine
DX: G44.209 Tension-type headache, unspecified, not intractable (principal); J43.9 Emphysema, unspecified; S16.1XXA Strain of muscle, fascia and tendon at neck level, initial encounter; X58.XXXA Exposure to other specified factors, initial encounter; I10 Essential (primary) hypertension; E78.00 Pure hypercholesterolemia, unspecified; K21.9 Gastro-esophageal reflux disease without esophagitis; Z88.0 Allergy status to penicillin; F17.210 Nicotine dependence, cigarettes, uncomplicated
CPT/HCPCS: 99282

== ENCOUNTER → 2025-01-09 | Outpatient (CLI) | payer MEDICARE, SELFPAY ==
--- NOTE | 2025-01-09 12:52 | CT_ITS ---
PROCEDURE: BRAIN/HEAD WITHOUT CONTRAST 01/09/2025 REASON FOR EXAM: MIGRAINE TECHNIQUE: Head CT without intravenous contrast. Coronal and Sagittal reconstruction series were provided. One or more dose reduction techniques were used (e.g., Automated exposure control, adjustment of the mA and/or kV according to patient size, use of iterative reconstruction technique. RADIATION DOSE SUMMARY: CTDlvol: 44.99 mGy DLP: 762.36 mGycm FINDINGS: Brain: CSF Spaces: Sinuses/Mastoids: Bones: Reading Location: [id number]
--- NOTE | 2025-01-09 12:59 | RAD_ITS ---
PROCEDURE: CERV SPINE 2 OR 3 VIEWS 01/09/2025 REASON FOR EXAM: CERVICAL DISC DISEASE TECHNIQUE: 3 views of the cervical spine. COMPARISON: None FINDINGS: On the lateral view, the cervical spine is evaluated to C7. Mild reversal of the normal lordotic curvature of the upper cervical spine, which could be positional versus muscle spasm. There is mild retrolisthesis of C3 on C4 and C4 on C5. Anterior fusion hardware seen at the C5-6 level. Negative for hardware failure. [id number] multilevel degenerative disc and endplate changes most conspicuous at the C3-4 and C4-5 levels. No acute cervical spine fractures or dislocations are identified. The dens is intact. No prevertebral soft tissue swelling is seen. Vascular calcifications within the right carotid bifurcation. Visualized lung apices are clear. Patient is edentulous. RAD/Cerv Spine 2 or 3 Views IMPRESSION: 1. No acute fractures or dislocations are identified. 2. Mild reversal of the normal lordotic curvature of the upper cervical spine, which could be positional versus muscle spasm. 3. Anterior fusion hardware seen at the C5-6 level. Negative for hardware fail ure. 4. [id number] multilevel degenerative disc and endplate changes most cons picuous at the C3-4 and C4-5 levels. Disclaimer: Reading [facility]
[2025-01-09 13:36] LABS: Erythrocyte Sedimentation Rate 18 mm/hr (0-30)
[2025-01-09 13:57] LABS: Absolute Lymphocyte Count 1.22 X10^3/uL (0.83-4.51); Absolute Neutrophil Count 5.3 X10^3/uL (2.0-7.7); Basophil# 0.01 X10^3/uL; Basophil% 0.1 % (0-1); Eosinophil# 0.05 X10^3/uL; Eosinophils% 0.7 % (0-5); Hematocrit 40.5 % (37-47); Hemoglobin 13.4 g/dL (12.0-15.0); Lymphocyte # 1.22 X10^3/ul (0.83-4.51); Lymphocyte % 17.4 % (19-41); Mean Corp Hgb Conc 33.1 g/dL (32-36); Mean Corpuscular Hgb 25.9 pg (27.0-32.0); Mean Corpuscular Volume 78.3 fL (81-99); Monocyte# 0.48 X10^3/uL; Monocyte% 6.8 % (0-10); NRBC Flagged by Analyzer 0 % (0-5); Neutrophil # 5.25 X10^3/uL (2.7-7.7); Neutrophil % 74.9 % (47-70); POSITIVE MORPHOLOGY YES; Platelet Count 168 K/mm3 (150-450); RBC Distribution Width CV 23.6 % (11.6-14.6); RBC Distribution Width SD 62.5 fl (35.1-43.9); Red Blood Count 5.17 M/mm3 (4.2-5.4)
[2025-01-09 14:06] LABS: Differential Indicated SCAN CRITERIA MET
[2025-01-09 14:23] LABS: ALB/GLOB Ratio 1.5 RATIO (0.9-2.4); AST(SGOT) 16 U/L (<=31); Alanine Aminotransfer ALT/SGPT 9 U/L (<=34); Alkaline Phosphatase 67 U/L (35-104); Anion Gap 11 (5-15); BUN 13 mg/dL (4-19); BUN/Creat Ratio 13.1 RATIO (10-20); Calcium,Total 9.4 mg/dL (7.6-11.0); Carbon Dioxide 23.9 mmol/L (21.0-32.0); Chloride 100 mmol/L (98-108); Creatinine, Serum 1.02 mg/dL (0.70-1.20); EST Glomerular Filtration Rate 60 (>60); Globulin 2.8 g/dL (2.2-4.2); Glucose 99 mg/dL (70-99); Potassium 3.9 mmol/L (3.3-5.1); Protein, Total 6.8 g/dL (5.9-8.4); Sodium Level 134 mmol/L (133-145); Total Bilirubin 0.45 mg/dL (0.00-1.30)
[2025-01-09 15:17] LABS: Anisocytosis 1+; Ovalocyte 1+; Platelet Estimate A (ADEQ)
== END | disposition home or self-care (01) ==
PROVIDERS: PCP Family Medicine Geriatric Medicine; Referring Provider Family Medicine Geriatric Medicine; Visit Provider Family Medicine Geriatric Medicine
DX: G43.909 Migraine, unspecified, not intractable, without status migrainosus (principal); J32.9 Chronic sinusitis, unspecified; I10 Essential (primary) hypertension; M50.90 Cervical disc disorder, unspecified, unspecified cervical region
CPT/HCPCS: 36415; 70450; 72040; 80053; 85025; 85652; 86140; 87631

== ENCOUNTER → 2025-02-09 | Outpatient (CLI) | payer MEDICARE, SELFPAY ==
[2025-02-09 13:12] LABS: Absolute Neutrophil Count 3.5 X10^3/uL (2.0-7.7); Basophil# 0.02 X10^3/uL; Basophil% 0.4 % (0-1); Eosinophils% 1.9 % (0-5); Hematocrit 40.9 % (37-47); Hemoglobin 13.6 g/dL (12.0-15.0); Lymphocyte % 22.7 % (19-41); Mean Corp Hgb Conc 33.3 g/dL (32-36); Mean Corpuscular Hgb 27.6 pg (27.0-32.0); Mean Corpuscular Volume 83.1 fL (81-99); Mean Platelet Vol. 10.1 fl (6.2-12.0); Monocyte# 0.41 X10^3/uL; Monocyte% 7.8 % (0-10); NRBC Flagged by Analyzer 0 % (0-5); Neutrophil # 3.54 X10^3/uL (2.7-7.7); POSITIVE MORPHOLOGY YES; Platelet Count 150 K/mm3 (150-450); RBC Distribution Width CV 21.2 % (11.6-14.6); RBC Distribution Width SD 63.3 fl (35.1-43.9); Red Blood Count 4.92 M/mm3 (4.2-5.4); White Blood Count 5.3 K/mm3 (4.4-11.0)
[2025-02-09 13:14] LABS: Differential Indicated SCAN CRITERIA MET
[2025-02-09 13:54] LABS: ALB/GLOB Ratio 1.7 RATIO (0.9-2.4); AST(SGOT) 21 U/L (<=31); Alanine Aminotransfer ALT/SGPT 15 U/L (<=34); Albumin, Serum 4.1 g/dL (3.4-4.8); Alkaline Phosphatase 57 U/L (35-104); Anion Gap 9 (5-15); BUN 16 mg/dL (4-19); BUN/Creat Ratio 13.8 RATIO (10-20); Calcium,Total 9.5 mg/dL (7.6-11.0); Carbon Dioxide 25.5 mmol/L (21.0-32.0); Chloride 107 mmol/L (98-108); Creatinine, Serum 1.16 mg/dL (0.70-1.20); EST Glomerular Filtration Rate 51 (>60); Globulin 2.4 g/dL (2.2-4.2); Glucose 91 mg/dL (70-99); Potassium 4.4 mmol/L (3.3-5.1); Protein, Total 6.5 g/dL (5.9-8.4); Sodium Level 141 mmol/L (133-145); Total Bilirubin 0.25 mg/dL (0.00-1.30)
[2025-02-09 13:58] LABS: Vitamin D,25 Hydroxy 55.6 ng/mL (30-100)
[2025-02-09 16:20] LABS: Anisocytosis 1+
[2025-02-09 16:21] LABS: Platelet Estimate ADEQUATE (ADEQ)
== END | disposition home or self-care (01) ==
LOC: LAB 12:04
PROVIDERS: PCP Family Medicine Geriatric Medicine; Referring Provider Family Medicine Geriatric Medicine; Visit Provider Family Medicine Geriatric Medicine
DX: I10 Essential (primary) hypertension (principal); E55.9 Vitamin D deficiency, unspecified
CPT/HCPCS: 36415; 80053; 82306; 84443; 85025

== ENCOUNTER 2025-03-11 10:38 | Day surgery (SDC) | payer MEDICARE, SELFPAY ==
[2025-03-11] VITALS (8 sets, daily range): BP systolic 116–149; BP diastolic 60–81; PULSE 65–75; RESP 16–18; TEMP 36.5–37; O2SAT 95–98; BMI 24.5
--- NOTE | 2025-03-11 10:58 | PCM.HP.STD ---
HPI - General General Date of Admission: 03/11/25 Date of Service: 03/11/25 Chief Complaint: Anemia HPI Narrative MATY SHEN, is a 69 F who presents with the Chief Complaint: anemia BIG established 06.18.24 with chronic constipation and abd pain. EGD 03.24.24; one non bleeding gastric ulcer, erythematous tissue in the gastric antrum Colonoscopy 03.24.24; polyps in the sigmoid and hepatic flexure EGD 07.14.24; - Z-line irregular, 39 cm from the incisors. Biopsied. - Hiatal hernia. - Non-bleeding gastric ulcers with no stigmata of bleeding. Biopsied. - Erythematous duodenopathy. Biopsied. 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 No etiology of abd pain identified. Last OV 11.06.24: continues abd pain. worse with exertion and relieved with rest. Feels like period cramps or labor. Started after hormone blockers for her breast cancer. Constipation is well controlled. Recommended f/u with women care OV 4.05.18 Pt presented to hematology appointment 12.24.24 and was found to be anemic with Hgb at 6.6. SHe underwent transfusion of blood and iron. She is feeling better since then. She continues with iron supplement. [facility] Medical History Low iron History of GI bleed Wears hearing aid Wears glasses Cancer Easy bruising History of ulceration Gastric reflux Shortness of breath on exertion Emphysema, unspecified COPD (chronic obstructive pulmonary disease) History of pain when walking History of edema Hyperparathyroidism Encounter for screening for malignant neoplasm of lung Encounter for screening for malignant neoplasm of lung in current smoker with 30 pack year history or greater Sciatic leg pain Wears dentures Post-menopausal Depression High cholesterol Back pain Chronic cough Hypertension Iron deficiency anemia due to chronic blood loss Osteopenia Invasive ductal carcinoma of right breast Arthritis GERD (gastroesophageal reflux disease) Smoking greater than 30 pack years Emphysema lung Bronchitis Asthma Home Medications ?Medication ?Instructions ?Recorded ?Last Taken ?Type albuterol sulfate 90 mcg/actuation 2 puff inhalation Q4H PRN 06/23/20 07/04/21 Rx aerosol inhaler shortness of breath or wheezing #1 device pravastatin 40 mg tablet 40 mg PO QHS 05/14/23 07/11/24 History budesonide 160 mcg-glycopyr 9 2 inh inhalation BID 12/06/23 07/11/24 History mcg-formot 4.8 mcg/actuation HFA inhaler (Breztri Aerosphere) potassium chloride 20 mEq 20 meq PO QDAY 02/07/24 07/11/24 History tablet,extended release amlodipine 5 mg tablet 5 mg PO DAILY 03/19/24 07/11/24 History bupropion HCl (smoking deter) 150 150 mg PO BID 04/29/24 07/11/24 History mg tablet,12 hr sustained-release(smoking deterrent) acetaminophen 500 mg tablet 500 mg PO Q6H PRN PRN Pain Score 05/13/24 Unknown Rx 1-10 #0 tabs cholecalciferol (vitamin D3) 125 125 mcg PO DAILY #30 caps 05/13/24 07/11/24 Rx mcg (5,000 unit) capsule dicyclomine 10 mg capsule 10 mg PO BID #30 caps 08/29/24 Unknown Rx baclofen 10 mg tablet 10 mg PO TID PRN abdominal pain 12/03/24 12/15/24 History omeprazole 40 mg capsule,delayed 40 mg PO DAILY 12/03/24 Unknown History release sucralfate 1 gram tablet 1 g PO TID 12/03/24 Unknown History venlafaxine 150 mg 150 mg PO DAILY 12/03/24 Unknown History capsule,extended release 24 hr anastrozole 1 mg tablet 1 mg PO DAILY #90 tabs 12/22/24 Unknown Rx diazepam 5 mg tablet 5 mg PO Q8 PRN Muscle Spasm #10 01/08/25 Unknown Rx tabs sumatriptan succinate 100 mg tablet 100 mg PO DAILY PRN headache 03/09/25 Unknown History Allergy/AdvReac Type Severity Reaction Status Date / Time latex AdvReac Intermediate rash Verified 03/09/25 12:56 Penicillins AdvReac Intermediate Rash Verified 03/09/25 12:56 Family History Mother Diabetes Hypertension Gastric ulcer Hyperlipidemia CVA (cerebral vascular accident) Father Diabetes COPD (chronic obstructive pulmonary disease) Hypertension Prostate cancer Aunt Breast cancer Surgical History History of esophagogastroduodenoscopy (EGD) H/O parathyroidectomy S/P parathyroidectomy Hx of colonoscopy Hx of fusion of cervical spine Status post right breast lumpectomy S/P lumpectomy, right breast History of tonsillectomy and adenoidectomy Hx of colonoscopy (~2019) H/O tubal ligation Social History Smoking Status: Current every day smoker tobacco type: cigarettes Tobacco: How many years used: 45 how long ago did patient quit smoking: down to only smoking 4 cigarettes/day second hand exposure: Yes quit status: considering quitting alcohol intake: current alcohol intake frequency: holidays/special occasions only substance use type: marijuana caffeine: Yes what type of physical activity do you participate in: none frequency: does not exercise laine/judaism: None seatbelt use: always do you feel safe at home: Yes additional social history: ROS Constitutional Constitutional: Denies fatigue, fever(s), poor appetite, weight gain or weight loss Gastrointestinal Gastrointestinal: Denies belching, bloating, change in bowel habits, change in stool character, chewing difficulty, coffee ground emesis, constipation, cramping, diarrhea, dyspepsia, dysphagia, early satiety, excessive flatus, fecal incontinence, heartburn, hematemesis, hematochezia, hemorrhoids, loose stools, melena, nausea, odynophagia, rectal bleeding, tenesmus, vomiting or weight changes Physical Exam Const alert, oriented x3, no apparent distress and healthy appearing General Appearance: cooperative GI normal to inspection, nondistended, normoactive bowel sounds, soft to palpation, non-tender and non-distended Percussion: normal to percussion Rectal Exam: deferred Assessment & Plan Assessment/Plan (1) Anemia: QUALIFIERS: Anemia type: iron deficiency Iron deficiency anemia type: unspecified iron deficiency Qualified Code(s): D50.9 - Iron deficiency anemia, unspecified (2) Iron (Fe) deficiency anemia: QUALIFIERS: Iron deficiency anemia type: unspecified iron deficiency Qualified Code(s): D50.9 - Iron deficiency anemia, unspecified (3) History of gastric ulcer: PLAN: Assessment and Plan Assessment and Plan (1) Anemia: Status: Acute Qualifiers: Anemia type: iron deficiency Iron deficiency anemia type: unspecified iron deficiency Qualified Code(s): D50.9 - Iron deficiency anemia, unspecified Plan: This is a 69 yo female pt here today for f/u regarding her anemia. Pt has been chronically anemic for some time now. SHe has undergone colonoscopy, EGD and capsule endoscopy all within the past year. 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 She recently was found to have severe anemia at 6.6 and underwent blood transfusion. Her stool was positive for blood. I discussed case with Dr. Wheeler; he does not feel that this degree of anemia would be caused by the single AVM in her small bowel. She will undergo repeat EGD to rule out bleeding ulcer. -EGD -f/u after procedure (2) History of gastric ulcer: Status: Acute
[2025-03-11] MEDS: Lactated Ringers 1,000 ML 15 ML IV (11:22)
--- NOTE | 2025-03-11 11:45 | EGD_PTH ---
PATIENT: MATY SHEN LOC: EN U#:[id number] AGE/SX: 69/F ROOM: RE03/11/[address]: Dr. Bright Wheeler DO : 1955 BED: DIS: 03/11/2025 SPEC #: [id number] RECD: 03/11/25 13:04 STATUS: SUSANNAH BEATRICE #: [id number] SUSANNAH: 03/11/25 11:[address]: Bright Wheeler DEPT: SURGICAL PATHOLOGY RECD BY: Sebastian Floyd ENTERED: 03/11/25 13:58 SP TYPE: EGD BIOPSY MARC DR: Dr. Tani Grey MD Tissues: A - Gastric mucous membrane Procedures: Immunohistochemical Stains Surgery Specimen Level IV HEADER OPERATION: EGD with biopsy and bipolar electrohemostasis PRE-OP DIAGNOSIS: Anemia, history of gastric ulcer TISSUE SUBMITTED: A- Gastric antrum biopsy MICROSCOPIC DIAGNOSIS A. Gastric antrum, biopsy: Antral mucosa with features of reactive gastropathy. IHC negative for H.pylori organisms. MICROSCOPIC DESCRIPTION Slides are reviewed. All matched controls reacted appropriately. These tests were developed and their performance characteristics determined by [facility]. They may not have been cleared or approved by the U.S. Food and Drug Administration. The FDA has determined that such clearance or approval is not necessary. The above immunohistochemical/dualISH markers are viewed by the Pathologist. GROSS DESCRIPTION A. Received in fixative is one container labeled with the patient's name and designated Gastric antrum biopsy. The specimen consists of two irregular fragments of light toney soft tissue that in aggregate measure 0.3 and 0.4 cm. The specimen is totally submitted in one cassette. KEVIN/ 03/11/2025 CPT:93227,32142
--- NOTE | 2025-03-11 11:46 | PCM.PRE.AN2 ---
ASA Classification* ASA Classification ASA Classification: 3 Assessment & Plan Anesthesia* Anesthesia Assessment Anesthesia Assessment: Discussed sedation and/or anesthesia options, risks, benefits, and alternatives with patient/parents/legal guardian/POA. Questions invited. The patient/parents/legal guardian/POA seems to understand and agrees to proceed with anesthesia plan. Reviewed the physical assessment, medical history, allergy history and patient home medications list prior to surgery/procedure/anesthetic and documented any changes. Performed airway and anesthesia risk assessments. Anesthesia Type Anesthesia Type: MAC History Source History Obtained from:: Patient Anesthesia Focused Assessment* Temperature: 97.7 F Pulse Rate: 75 Blood Pressure: 149/81 Respiratory Rate: 18 Pulse Ox: 98 Oxygen Delivery Method: Room Air Airway Assessment Mouth opens: >3 cm Mallampati Score: III Teeth Condition: Dentures (Patient has full upper and lower dentures. They will be coming out.) Neck Range of motion (ROM): Limited ROM (Slight decrease in extension) Labs Anesthesia Preop lab: CBC WBC 5.3 K/mm3 (4.4-11.0) 02/09/25 12:07 02/09/25 RBC 4.92 M/mm3 (4.2-5.4) 02/09/25 12:07 02/09/25 Hgb 13.6 g/dL (12.0-15.0) 02/09/25 12:07 02/09/25 Hct 40.9 % (37-47) 02/09/25 12:07 02/09/25 Plt Count 150 K/mm3 (150-450) 02/09/25 12:07 02/09/25 CHEMISTRY Potassium 4.4 mmol/L (3.3-5.1) 02/09/25 12:07 02/09/25 Sodium 141 mmol/L (133-145) 02/09/25 12:07 02/09/25 Magnesium 1.9 mg/dL (1.6-2.6) 05/13/24 05:56 05/13/24 Phosphorus 2.2 mg/dL (2.5-4.9) L 10/23/24 11:08 10/23/24 BUN 16 mg/dL (4-19) 02/09/25 12:07 02/09/25 Creatinine 1.16 mg/dL (0.70-1.20) 02/09/25 12:07 02/09/25 Glucose 91 mg/dL (70-99) 02/09/25 12:07 02/09/25 TSH 5.050 uIU/mL (0.300-4.200) H 02/09/25 12:07 02/09/25 COAG PT 13.4 SECONDS (11.7-14.9) 05/09/24 08:32 05/09/24 Pre-Assessment Diagnosis/Proposed Procedure Planned Operative Procedure(s): EGD Anesthesia History 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 When Was Last Pacemaker Check QUESTION #4 FULL TEXT: You/Your Family Experience fever (hyperthermia) with Anesthesia Last Oral Intake Last Oral intake: Last Oral Intake NPO since 07:00 03/11/25 11:19 Meds taken in AM with sips of Yes 03/11/25 11:19 water? Meds patient instructed to amlodipine 03/11/25 11:19 take am of surgery Any additional information?: Yes Meds taken in AM with sips of water?: Yes PONV PONV - fur blowing machine attendant: PONV - fur blowing machine attendant Female Yes 03/09/25 13:00 HX of Motion Sickness No 03/09/25 13:00 HX of N/V After Surgery No 03/09/25 13:00 Non-Smoker No 03/09/25 13:00 Duration of Surgery greater No 03/09/25 13:00 than 60 minutes Number of Risk Factors 1 03/09/25 13:00 PONV Score Low Risk 03/09/25 13:00 Height & Weight Height & Weight: Anesthesia: Height & Weight Height 5 ft 2 in 03/11/25 11:19 Weight: 61 kg 03/11/25 11:19 Body Mass Index (BMI) 24.5 03/11/25 11:19 Respiratory Assessment Respiratory Assessment - fur blowing machine attendant: Respiratory Tract Infection Hx - fur blowing machine attendant Hx Respiratory Tract Infection No 03/09/25 13:00 STOP Sleep Apnea STOP Sleep Apnea - fur blowing machine attendant: STOP Sleep Apnea - fur blowing machine attendant Hx Hypertension Yes: CONTROLLED WITH MED 03/09/25 13:00 Hx Sleep Apnea No 03/09/25 13:00 CPAP BIPAP Do you snore loudly (louder No 03/09/25 13:00 than talking or can be heard Do you often feel tired/ No 03/09/25 13:00 fatigued/ sleepy during daytime? Has anyone observed you stop No 03/09/25 13:00 breathing during sleep? STOP Results Negative 03/09/25 13:00 QUESTION #5 FULL TEXT : Do you snore loudly (louder than talking or can be heard through closed doors)? 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 Specify any problems Hx of Preganancy in last 3 No 03/09/25 13:00 Months Nurse Filling Out Transfusion DSCHRIBER 03/09/25 13:00 & Questions: Date: 03/09/25 03/09/25 13:00 Time: 13:03/09/25 13:00 Patient unable to answer at this time (ie. confused, unrespo /Reproduction History /Reproductive History - fur blowing machine attendant: /Reproductive Hx- fur blowing machine attendant Hx Now Gestational Age (in weeks): EDC: Hx Hx Para Hx Section SAB No 03/09/25 13:00 Active Medications Active Medications: Current Medications Generic Name Dose Route Start Last Admin Trade Name Freq PRN Reason Stop Dose Admin Lactated Ringer's 1,000 mls @ 15 mls/hr 03/11/25 11:00 03/11/25 11:22 IV 15 mls/hr .Q48H LUKAS Administration PFSH Medical History Low iron History of GI bleed Wears hearing aid Wears glasses Cancer Easy bruising History of ulceration Gastric reflux Shortness of breath on exertion Emphysema, unspecified COPD (chronic obstructive pulmonary disease) History of pain when walking History of edema Hyperparathyroidism Encounter for screening for malignant neoplasm of lung Encounter for screening for malignant neoplasm of lung in current smoker with 30 pack year history or greater Sciatic leg pain Wears dentures Post-menopausal Depression High cholesterol Back pain Chronic cough Hypertension Iron deficiency anemia due to chronic blood loss Osteopenia Invasive ductal carcinoma of right breast Arthritis GERD (gastroesophageal reflux disease) Smoking greater than 30 pack years Emphysema lung Bronchitis Asthma Home Medications ?Medication ?Instructions ?Recorded ?Last Taken ?Type albuterol sulfate 90 mcg/actuation 2 puff inhalation Q4H PRN 06/23/20 07/04/21 Rx aerosol inhaler shortness of breath or wheezing #1 device pravastatin 40 mg tablet 40 mg PO QHS 05/14/23 07/11/24 History budesonide 160 mcg-glycopyr 9 2 inh inhalation BID 12/06/23 07/11/24 History mcg-formot 4.8 mcg/actuation HFA inhaler (Breztri Aerosphere) potassium chloride 20 mEq 20 meq PO QDAY 02/07/24 07/11/24 History tablet,extended release amlodipine 5 mg tablet 5 mg PO DAILY 03/19/24 03/11/25 07:00 History bupropion HCl (smoking deter) 150 150 mg PO BID 04/29/24 07/11/24 History mg tablet,12 hr sustained-release(smoking deterrent) acetaminophen 500 mg tablet 500 mg PO Q6H PRN PRN Pain Score 05/13/24 Unknown Rx 1-10 #0 tabs cholecalciferol (vitamin D3) 125 125 mcg PO DAILY #30 caps 05/13/24 07/11/24 Rx mcg (5,000 unit) capsule dicyclomine 10 mg capsule 10 mg PO BID #30 caps 08/29/24 Unknown Rx baclofen 10 mg tablet 10 mg PO TID PRN abdominal pain 12/03/24 12/15/24 History omeprazole 40 mg capsule,delayed 40 mg PO DAILY 12/03/24 Unknown History release sucralfate 1 gram tablet 1 g PO TID 12/03/24 Unknown History venlafaxine 150 mg 150 mg PO DAILY 12/03/24 Unknown History capsule,extended release 24 hr anastrozole 1 mg tablet 1 mg PO DAILY #90 tabs 12/22/24 Unknown Rx diazepam 5 mg tablet 5 mg PO Q8 PRN Muscle Spasm #10 01/08/25 Unknown Rx tabs sumatriptan succinate 100 mg tablet 100 mg PO DAILY PRN headache 03/09/25 Unknown History Allergy/AdvReac Type Severity Reaction Status Date / Time latex AdvReac Intermediate rash Verified 03/11/25 11:15 Penicillins AdvReac Intermediate Rash Verified 03/11/25 11:15 Family History Mother Diabetes Hypertension Gastric ulcer Hyperlipidemia CVA (cerebral vascular accident) Father Diabetes COPD (chronic obstructive pulmonary disease) Hypertension Prostate cancer Aunt Breast cancer Surgical History History of esophagogastroduodenoscopy (EGD) H/O parathyroidectomy S/P parathyroidectomy Hx of colonoscopy Hx of fusion of cervical spine Status post right breast lumpectomy S/P lumpectomy, right breast History of tonsillectomy and adenoidectomy Hx of colonoscopy (~2019) H/O tubal ligation Social History Smoking Status: Current every day smoker tobacco type: cigarettes Tobacco: How many years used: 45 how long ago did patient quit smoking: down to only smoking 4 cigarettes/day second hand exposure: Yes quit status: considering quitting alcohol intake: current alcohol intake frequency: holidays/special occasions only substance use type: marijuana caffeine: Yes what type of physical activity do you participate in: none frequency: does not exercise laine/moravian: None seatbelt use: always do you feel safe at home: Yes additional social history: Review of Systems (Anesthesia) ROS Narrative System reviewed and no additional complaints, except as documented. Physical Exam Resp clear to auscultation bilaterally
--- NOTE | 2025-03-11 12:10 | OP.CCLET_ITS ---
03/11/2025 Tani Grey MD [address] [place] [address] Re : Upper GI endoscopy procedure for Samantha High Dear Dr. Grey This procedure was performed on Tuesday, March 11, 2025. My impressions and recommendations are as follows: Impressions : - No gross lesions in the entire esophagus. - Chronic gastritis. Biopsied. - Two non-bleeding angiodysplastic lesions in the duodenum. Treated with a heater probe. Recommendations : - Discharge patient to home. - Resume previous diet. - Continue present medications. My findings are described in the full procedure note, which is enclosed. If I can be of further assistance, please feel free to contact me at . Sincerely, Bright Wheeler, 03/11/2025 12:09:57 PM This report has been signed electronically.
--- NOTE | 2025-03-11 12:10 | OP.EGD_ITS ---
Patient Name: Smaantha High Procedure Date: 03/11/2025 11:45 AM Date of : 1955 Age: 69 Procedure: Upper GI endoscopy Indications: Epigastric abdominal pain, Peptic ulcer Providers: Bright Wheeler DO Referring MD: Tani Grey MD Medicines: Monitored Anesthesia Care Patient Profile: This is a 69 year old female. Refer to note in patient chart for documentation of history and physical. Patient has symptoms of acute epigastric abdominal pain and chronic heartburn. Complications: No immediate complications. Procedure: Pre-Anesthesia Assessment: - Prior to the procedure, a History and Physical was performed, and patient medications and allergies were reviewed. The patient is competent. The risks and benefits of the procedure and the sedation options and risks were discussed with the patient. All questions were answered and informed consent was obtained. Patient identification and proposed procedure were verified by the physician in the pre-procedure area. Mental Status Examination: alert and oriented. Airway Examination: normal oropharyngeal airway and neck mobility. Respiratory Examination: clear to auscultation. CV Examination: normal. Prophylactic Antibiotics: The patient does not require prophylactic antibiotics. Prior Anticoagulants: The patient has taken no anticoagulant or antiplatelet agents except for NSAID medication. ASA Grade Assessment: II - A patient with mild systemic disease. After reviewing the risks and benefits, the patient was deemed in satisfactory condition to undergo the procedure. The anesthesia plan was to use monitored anesthesia care (MAC). Immediately prior to administration of medications, the patient was re-assessed for adequacy to receive sedatives. The heart rate, respiratory rate, oxygen saturations, blood pressure, adequacy of pulmonary ventilation, and response to care were monitored throughout the procedure. The physical status of the patient was re-assessed after the procedure. After obtaining informed consent, the endoscope was passed under direct vision. Throughout the procedure, the patient's blood pressure, pulse, and oxygen saturations were monitored continuously. The gastroscope was introduced through the mouth, and advanced to the third part of the duodenum. Small bowel enteroscopy was deemed necessary. The upper GI endoscopy was accomplished without difficulty. The patient tolerated the procedure well. Scope In: 12:01:15 PM Scope Out: 12:04:30 PM Total Procedure Duration Time 0 hours 3 minutes 15 seconds Findings: No gross lesions were noted in the entire esophagus. Patchy mild inflammation characterized by erythema was found in the gastric antrum. Biopsies were taken with a cold forceps for histology. Verification of patient identification for the specimen was done. Biopsies were taken with a cold forceps for Helicobacter pylori testing. Verification of patient identification for the specimen was done. Estimated blood loss was minimal. Two 5 mm angiodysplastic lesions without bleeding were found in the duodenal bulb and in the second portion of the duodenum. Coagulation for destruction of remaining portion of lesion using heater probe was successful. Estimated blood loss was minimal. Impression: - No gross lesions in the entire esophagus. - Chronic gastritis. Biopsied. - Two non-bleeding angiodysplastic lesions in the duodenum. Treated with a heater probe. Recommendation: - Discharge patient to home. - Resume previous diet. - Continue present medications. Procedure Code(s): --- Professional --- 74023, Small intestinal endoscopy, enteroscopy beyond second portion of duodenum, not including ileum; with biopsy, single or multiple CPT copyright 2021 [employer]. All rights reserved. The codes documented in this report are preliminary and upon hospital intern review may be revised to meet current compliance requirements. Bright Wheeler DO 03/11/2025 12:09:57 PM This report has been signed electronically. Number of Addenda: 0 Note Initiated On: 03/11/2025 11:45 AM
--- NOTE | 2025-03-11 12:17 | PCM.POST.ANE ---
Anesthesia: Postop Eval I Current Vital Signs Temperature: 97.8 F Pulse Rate: 67 Blood Pressure: 118/60 Respiratory Rate: 16 Pulse Ox: 98 Oxygen Delivery Method: Room Air Assessment Airway patent: Yes Spontaneous unlabored respirations: Yes Mental status: Asleep nausea: No Vomiting: No Anesthesia Complication: No Fluid Hydration Crystalloid volume administer (ml): 300 Total IV fluid infused: 300 Progress Note Anesthesia document: Postop Eval 1 completed: Yes
--- NOTE | 2025-03-11 16:15 | PCM.POSTANE2 ---
Anesthesia Postop Eval I Sum Postop Eval Completion status Anesthesia document: Postop Eval 1 completed: Yes Anesthesia Postop Eval I Summary Anesthesia Postop Eval I Summary: Anesthesia Postop Eval I: Assessment Summary Airway patent Yes 03/11/25 12:18 [email or web address] Spontaneous unlabored Yes 03/11/25 12:18 [email or web address] respirations Mental status Asleep 03/11/25 12:18 [email or web address] nausea No 03/11/25 12:18 [email or web address] Vomiting No 03/11/25 12:18 [email or web address] Anesthesia Postop Eval I: Fluid Summary Crystalloid volume administer 300 03/11/25 12:18 [email or web address] (ml) Colloids volume administered ( ml) Blood Product volume administered (ml) Total IV fluid infused 300 03/11/25 12:18 [email or web address] Anesthesia Postop Eval I: Summary Notes Anesthesia Complication No 03/11/25 12:18 [email or web address] Anesthesia Complication Comment: Post-operative progress note Anesthesia: Postop Eval II Evaluation Mental status: Awake Pain Level: 0 nausea: No Vomiting: No
== END 2025-03-11 12:57 | disposition home or self-care (01) ==
LOC: EN 10:39 → AC 10:41
PROVIDERS: PCP Family Medicine Geriatric Medicine; Referring Provider Family Medicine Geriatric Medicine; Visit Provider Internal Medicine Gastroenterology
PROC: 0DJ08ZZ Inspection of Upper Intestinal Tract, Via Natural or Artificial Opening Endoscopic (ICD-10-PCS; CPT 43235; principal; 2025-03-11 11:40)
DX: K31.819 Angiodysplasia of stomach and duodenum without bleeding (principal); J43.9 Emphysema, unspecified; C50.911 Malignant neoplasm of unspecified site of right female breast; D50.9 Iron deficiency anemia, unspecified; E78.00 Pure hypercholesterolemia, unspecified; K29.50 Unspecified chronic gastritis without bleeding; K44.9 Diaphragmatic hernia without obstruction or gangrene; K21.9 Gastro-esophageal reflux disease without esophagitis; I10 Essential (primary) hypertension; F17.210 Nicotine dependence, cigarettes, uncomplicated; Z79.811 Long term (current) use of aromatase inhibitors; Z79.899 Other long term (current) drug therapy; Z86.0100 Personal history of colon polyps, unspecified
CPT/HCPCS: 43255; 88305; 88342; C1889; J2405

== ENCOUNTER → 2025-05-14 | Outpatient (CLI) | payer MEDICARE, SELFPAY ==
[2025-05-14 17:00] LABS: Hematocrit 36.6 % (37-47); Hemoglobin 12.4 g/dL (12.0-15.0); Immature Granulocytes Count 0.020 X10^3/uL (0.0-0.0); Mean Corp Hgb Conc 33.9 g/dL (32-36); Mean Corpuscular Volume 86.9 fL (81-99); Mean Platelet Vol. 11.6 fl (6.2-12.0); NRBC Flagged by Analyzer 0 % (0-5); Platelet Count 239 K/mm3 (150-450); RBC Distribution Width CV 13.0 % (11.6-14.6); RBC Distribution Width SD 40.7 fl (35.1-43.9); Red Blood Count 4.21 M/mm3 (4.2-5.4); White Blood Count 5.2 K/mm3 (4.4-11.0)
[2025-05-14 17:15] LABS: AST(SGOT) 21 U/L (<=31); Alanine Aminotransfer ALT/SGPT 11 U/L (<=34); Albumin, Serum 4.0 g/dL (3.4-4.8); Alkaline Phosphatase 65 U/L (35-104); Anion Gap 12 (5-15); BUN 19 mg/dL (4-19); BUN/Creat Ratio 15.7 RATIO (10-20); Calcium,Total 9.7 mg/dL (7.6-11.0); Carbon Dioxide 25.0 mmol/L (21.0-32.0); Chloride 104 mmol/L (98-108); Globulin 2.2 g/dL (2.2-4.2); Glucose 90 mg/dL (70-99); Potassium 3.9 mmol/L (3.3-5.1)
[2025-05-14 18:26] LABS: Vitamin D,25 Hydroxy 57.9 ng/mL (30-100)
[2025-05-15 00:10] LABS: Xtra Tube Kwok EXTRA TUBE
== END | disposition home or self-care (01) ==
LOC: POLAB3 16:10
PROVIDERS: PCP Family Medicine Geriatric Medicine; Visit Provider Family Medicine Geriatric Medicine
DX: E03.9 Hypothyroidism, unspecified (principal); I10 Essential (primary) hypertension; E55.9 Vitamin D deficiency, unspecified
CPT/HCPCS: 36415; 80053; 82306; 84443; 85025

== ENCOUNTER → 2025-08-14 | Outpatient (CLI) | payer OTHER, SELFPAY ==
[2025-08-14 11:07] LABS: Hematocrit 27.4 % (37-47); Hemoglobin 8.5 g/dL (12.0-15.0); Immature Granulocytes Count 0.020 X10^3/uL (0.0-0.0); Mean Corp Hgb Conc 31.0 g/dL (32-36); Mean Corpuscular Volume 76.1 fL (81-99); Mean Platelet Vol. 11.2 fl (6.2-12.0); NRBC Flagged by Analyzer 0 % (0-5); Platelet Count 237 K/mm3 (150-450); RBC Distribution Width CV 14.6 % (11.6-14.6); RBC Distribution Width SD 40.0 fl (35.1-43.9); Red Blood Count 3.60 M/mm3 (4.2-5.4); White Blood Count 5.6 K/mm3 (4.4-11.0)
[2025-08-14 11:49] LABS: AST(SGOT) 17 U/L (<=31); Alanine Aminotransfer ALT/SGPT 9 U/L (<=34); Albumin, Serum 4.1 g/dL (3.4-4.8); Alkaline Phosphatase 62 U/L (35-104); Anion Gap 9 (5-15); BUN 21 mg/dL (4-19); BUN/Creat Ratio 17.2 RATIO (10-20); Calcium,Total 9.2 mg/dL (7.6-11.0); Carbon Dioxide 26.8 mmol/L (21.0-32.0); Chloride 103 mmol/L (98-108); Cholesterol 191 mg/dL (<=200); Globulin 2.1 g/dL (2.2-4.2); Glucose 99 mg/dL (70-99); Low Density Lipoprotein Calc. 104 mg/dL; Potassium 4.1 mmol/L (3.3-5.1); Triglycerides 51 mg/dL; Very Low Density Lipoprotein 10 mg/dL (5-40); cholesterol:hdl ratio screen 2.48
[2025-08-14 18:59] LABS: Xtra Tube Kwok EXTRA TUBE
== END | disposition home or self-care (01) ==
LOC: POLAB3 10:59
PROVIDERS: PCP Family Medicine Geriatric Medicine; Visit Provider Family Medicine Geriatric Medicine
DX: E78.5 Hyperlipidemia, unspecified (principal); N18.32 Chronic kidney disease, stage 3b; I12.9 Hypertensive chronic kidney disease with stage 1 through stage 4 chronic kidney disease, or unspecified chronic kidney disease; E03.9 Hypothyroidism, unspecified
CPT/HCPCS: 36415; 80053; 80061; 84443; 85025

== ENCOUNTER 2025-08-16 11:44 | Emergency (ER) | payer MEDICARE, SELFPAY ==
[2025-08-16 11:44] VITALS: BP 162/81; PULSE 88; RESP 22; TEMP 36.2; O2SAT 98
--- NOTE | 2025-08-16 11:55 | CT_ITS ---
PROCEDURE: CHEST WITHOUT CONTRAST 08/16/2025 REASON FOR EXAM: RIGHT SIDED RIB PAIN STATUS POST FALL TECHNIQUE: Chest CT without contrast. Coronal and Sagittal reconstruction series were provided. One or more dose reduction techniques were used (e.g., Automated exposure control, adjustment of the mA and/or kV according to patient size, use of iterative reconstruction technique RADIATION DOSE SUMMARY: CTDlvol: 6.7 mGy DLP: 252 mGycm COMPARISON: 08/26/2024 FINDINGS: Inspection of the lung parenchyma demonstrates subtle areas of centrilobular emphysema. No discrete pulmonary consolidation, fibrosis or edema. Atelectasis is present at the right lung base. There is also a small right-sided pneumothorax. There is a fracture of the posterior 9th and subtle fracture of the 10th and 11th ribs. Adjacent subcutaneous emphysema. No visible anterior rib deformity. Left-sided ribs intact. No thoracic compression deformity. Normal sternum No thoracic aortic aneurysm. No pericardial fluid. Upper abdomen grossly unremarkable. CT/Chest without Contrast IMPRESSION: Coronary artery calcification (CAC) is mild. Right-sided 9th, 10th and 11th rib fractures with small pneumothorax Reading [facility]
--- NOTE | 2025-08-16 11:56 | ED.VIS.FALL ---
HPI HPI - Fall History of Present Illness Chief Complaint: Fall Narrative Narrative: 70-year-old female who denies significant past medical history presents status post fall downstairs this morning at 8 AM. She states that approximately 4 hours ago, she was walking down her stairs to let her dog out. She slipped after going down 2 stairs and fell down the remainder of the flight. She denies loss of consciousness, but mainly fell onto her right side. She now has pain worse with movement and breathing on the right side of her chest. She denies any abdominal pain, no nausea or vomiting, no other injury except for small skin tear on her right elbow. She has no elbow pain. She is unsure of her last tetanus immunization. She states that she is mainly concerned about having fractures of her right ribs. Denies taking any blood thinners. [facility] Medical History Screening for breast cancer Low iron History of GI bleed Wears hearing aid Wears glasses Cancer Easy bruising History of ulceration Gastric reflux Shortness of breath on exertion Emphysema, unspecified COPD (chronic obstructive pulmonary disease) History of pain when walking History of edema Hyperparathyroidism Encounter for screening for malignant neoplasm of lung Encounter for screening for malignant neoplasm of lung in current smoker with 30 pack year history or greater Sciatic leg pain Wears dentures Post-menopausal Depression High cholesterol Back pain Chronic cough Hypertension Iron deficiency anemia due to chronic blood loss Osteopenia Invasive ductal carcinoma of right breast Arthritis GERD (gastroesophageal reflux disease) Smoking greater than 30 pack years Emphysema lung Bronchitis Asthma Home Medications ?Medication ?Instructions ?Recorded ?Last Taken ?Type albuterol sulfate 90 mcg/actuation 2 puff inhalation Q4H PRN 06/23/20 07/04/21 Rx aerosol inhaler shortness of breath or wheezing #1 device pravastatin 40 mg tablet 40 mg PO QHS 05/14/23 07/11/24 History budesonide 160 mcg-glycopyr 9 2 inh inhalation BID 12/06/23 07/11/24 History mcg-formot 4.8 mcg/actuation HFA inhaler (Breztri Aerosphere) potassium chloride 20 mEq 20 meq PO QDAY 02/07/24 07/11/24 History tablet,extended release amlodipine 5 mg tablet 5 mg PO DAILY 03/19/24 03/11/25 07:00 History bupropion HCl (smoking deter) 150 150 mg PO BID 04/29/24 07/11/24 History mg tablet,12 hr sustained-release(smoking deterrent) acetaminophen 500 mg tablet 500 mg PO Q6H PRN PRN Pain Score 05/13/24 Unknown Rx 1-10 #0 tabs cholecalciferol (vitamin D3) 125 125 mcg PO DAILY #30 caps 05/13/24 07/11/24 Rx mcg (5,000 unit) capsule dicyclomine 10 mg capsule 10 mg PO BID #30 caps 08/29/24 Unknown Rx baclofen 10 mg tablet 10 mg PO TID PRN abdominal pain 12/03/24 12/15/24 History omeprazole 40 mg capsule,delayed 40 mg PO DAILY 12/03/24 Unknown History release sucralfate 1 gram tablet 1 g PO TID 12/03/24 Unknown History venlafaxine 150 mg 150 mg PO DAILY 12/03/24 Unknown History capsule,extended release 24 hr diazepam 5 mg tablet 5 mg PO Q8 PRN Muscle Spasm #10 01/08/25 Unknown Rx tabs sumatriptan succinate 100 mg tablet 100 mg PO DAILY PRN headache 03/09/25 Unknown History anastrozole 1 mg tablet 1 mg PO DAILY #90 tabs 06/30/25 Unknown Rx Allergy/AdvReac Type Severity Reaction Status Date / Time latex AdvReac Intermediate rash Verified 06/08/25 14:08 Penicillins AdvReac Intermediate Rash Verified 06/08/25 14:08 Family History Mother Diabetes Hypertension Gastric ulcer Hyperlipidemia CVA (cerebral vascular accident) Father Diabetes COPD (chronic obstructive pulmonary disease) Hypertension Prostate cancer Aunt Breast cancer Surgical History History of esophagogastroduodenoscopy (EGD) H/O parathyroidectomy S/P parathyroidectomy Hx of colonoscopy Hx of fusion of cervical spine Status post right breast lumpectomy S/P lumpectomy, right breast History of tonsillectomy and adenoidectomy Hx of colonoscopy (~2019) H/O tubal ligation Social History Smoking Status: Current every day smoker tobacco type: cigarettes Tobacco: How many years used: 45 how long ago did patient quit smoking: down to only smoking 4 cigarettes/day second hand exposure: Yes quit status: considering quitting alcohol intake: current alcohol intake frequency: holidays/special occasions only substance use type: marijuana caffeine: Yes what type of physical activity do you participate in: none frequency: does not exercise laine/jain: None seatbelt use: always do you feel safe at home: Yes additional social history: ROS ROS ED ROS Narrative Review of system was positive for right sided rib pain worse with movement and breathing. No loss of consciousness, no neck pain. Positive skin tear to right elbow. EXAM Physical Exam Narrative Exam Narrative: GCS 15. ABCs are intact. PERRL, EOMI. Neck soft and supple with full range of motion. Positive tenderness to palpation right ribs both anterior, posterior, and in mid axillary line. No crepitance. Cardiovascular examination regular rate and rhythm. Lungs are clear to auscultation bilaterally. Abdomen is soft and nontender without guarding or rebound. Neurological examination is nonfocal, nonlateralizing, moves all extremities. Inspection of the right elbow shows approximately 1 cm skin tear without active bleeding. She has full range of motion and no bony tenderness or crepitance. Appears neurovascularly intact distally. Const Vital Signs: 08/16/25 11:44 08/16/25 12:09 08/16/25 13:44 Temperature 97.1 F L Temperature Source Temporal Pulse Rate 88 Respiratory Rate 22 H Respiratory Effort Normal Non-Labored Respiratory Depth Normal Respiratory Pattern Normal Blood Pressure 162/81 H 168/68 H Blood Pressure Mean 108 101 Pulse Ox 98 96 Oxygen Delivery Method Room Air Room Air MDM MDM MDM Narrative Medical decision making narrative: Differential diagnosis includes but not limited to chest wall contusion versus rib fracture versus multiple rib fractures. I do not feel that she requires x-ray of her right elbow as she has no bony tenderness and full range of motion. I also do not feel that she needs a CT of the brain. She was given 1 Wallace tablet here for analgesia as she reportedly already took [id number] medications. CT of the chest will be obtained to help rule out rib fracture and pneumothorax. History and physical does not support pneumothorax. She will be given a Boostrix tetanus immunization/Tdap and her wound will be cleansed and dressed. I do not feel that she requires suturing of the skin tear. I was informed by the RN, that the patient had eloped from the emergency department as she did not want to wait for her CT results of the chest. We had received a phone call taken by the other physician from the radiologist regarding reading of the CT which shows right sided 9th, 10th, and 11th rib fractures with small pneumothorax. Pulse ox in the emergency department was 96 to 98% on room air. I attempted to contact the patient on her cell phone, and left a message for her to return to the emergency department or call regarding CT results. Additionally, she listed her friend has her next of kin/emergency contact, and I left word with her to call the emergency department regarding the results as well. As the patient has eloped, I did inform the oncoming physician as well regarding the patient's need for probable transfer as she has 3 rib fractures with small pneumothorax and is more of a geriatric trauma. Disposition is eloped. Patient was in stable condition. History & Record Review Discussion w/independent historian: Patient and Friend Radiography Diagnostic Testing: Clinical Impression(s) from Imaging Studies Chest CT 08/16/25 11:55 IMPRESSION: Coronary artery calcification (CAC) is mild. Right-sided 9th, 10th and 11th rib fractures with small pneumothorax Reading Location: [facility] [address] Discharge Plan Triage Chief Complaint: Fall ED Provider: [place] Dx/Rx/DC Orders Clinical Impression: Fall down stairs, Multiple fractures of ribs of right side, Pneumothorax on right Prescriptions: No Action albuterol sulfate 90 mcg/actuation HFA aerosol inhaler 2 puff INHALATION Q4H PRN (Reason: shortness of breath or wheezing) Qty: 1 6RF Rx Instructions: administer with spacer pravastatin 40 mg tablet 40 mg PO QHS Patient Comments: TAKE 1 TABLET BY MOUTH EVERY DAY AT BEDTIME Breztri Aerosphere 160-9-4.8 mcg/actuation HFA aerosol inhaler 2 inh inhalation BID potassium chloride 20 mEq tablet extended release 20 meq PO QDAY dicyclomine 10 mg capsule 10 mg PO BID Qty: 30 2RF sucralfate 1 gram tablet 1 g PO TID venlafaxine 150 mg capsule,extended release 24hr 150 mg PO DAILY baclofen 10 mg tablet 10 mg PO TID PRN (Reason: abdominal pain) omeprazole 40 mg capsule,delayed release(DR/EC) 40 mg PO DAILY amlodipine 5 mg tablet 5 mg PO DAILY bupropion HCl (smoking deter) 150 mg tablet extended release 12 hr 150 mg PO BID acetaminophen 500 mg Tablet 500 mg PO Q6H PRN PRN (Reason: Pain Score 1-10) Qty: 0 0RF cholecalciferol (vitamin D3) 125 mcg (5,000 unit) capsule 125 mcg PO DAILY Qty: 30 0RF sumatriptan succinate 100 mg tablet 100 mg PO DAILY PRN (Reason: headache) diazepam [diazepam] 5 mg tablet 5 mg PO Q8 PRN (Reason: Muscle Spasm) Qty: 10 0RF anastrozole 1 mg tablet 1 mg PO DAILY Qty: 90 3RF Primary Care Provider: Tani Grey Chi Referrals: Tani Grey Chi, MD [Primary Care Provider, Geriatrics] Print Language: Latvian Disposition Disposition: Elopement Discharge Date/Time: 08/16/25 14:43
[2025-08-16] MEDS: HYDROcodone Bitartrate/Apap 5/325 Tablet PO (12:06)
--- OUTSIDE RECORDS SUMMARY | 2025-08-16 12:13 | XMS RPT_ITS | CCD ---
Author Organization [facility] Care Team Providers Care Granite Installer Name Role Phone Hilary Camargo Primary Care Provider Dr. Frederick Poe Primary Care Provider Dr. Frederick Poe Referring Provider Dr. Cristino Degroot Attending Provider Dr. Frederick Poe Primary Care Provider Dr. Frederick Poe Referring Provider Dr. Cristino Degroot Attending Provider Dr. Sean Dos Santos Attending Provider Emily AFRICANA STUDIES PROFESSOR, AFRICANA STUDIES PROFESSOR-C Anastacia Attending Provider Emily AFRICANA STUDIES PROFESSOR, AFRICANA STUDIES PROFESSOR-C Anastacia Referring Provider Dr. Stefan Ibanez Attending Provider Dr. Jonh Bedoya Attending Provider Dr. Frederick Poe Primary Care Provider Dr. Frederick Poe Referring Provider Dr. Cristino Degroot Attending Provider Dr. Frederick Poe Primary Care Provider Dr. Frederick Poe Referring Provider Dr. Sean Dos Santos Attending Provider Dr. Tani Grey Chi Primary Care Provider MD Tani Grey Chi Referring Provider Unavailable Dr. Cristino Degroot Attending Provider Dr. Tani Grey Chi Primary Care Provider Dr. Tani Grey Chi Referring Provider Dr. Sean Dos Santos Attending Provider Que, Dr. Tani Arzola Primary Care Provider Que, Dr. Tani Arzola Referring Provider Dr. Cristino Degroot Attending Provider Dr. Sean Dos Santos Attending Provider Emily AFRICANA STUDIES PROFESSOR, AFRICANA STUDIES PROFESSOR-C Anastacia Attending Provider Emily AFRICANA STUDIES PROFESSOR, AFRICANA STUDIES PROFESSOR-C Anastacia Referring Provider Que, Dr. Tani Arzola Primary Care Provider Que, Dr. Tani Arzola Referring Provider JAVED Mayorga Attending Provider Unavailable Que, Dr. Tani Arzola Primary Care Provider Que, Dr. Tani Arzola Referring Provider Emily AFRICANA STUDIES PROFESSOR, AFRICANA STUDIES PROFESSOR-C Anastacia Attending Provider JAVED Mayorga Inessa Attending Provider Unavailable [facility], Dr. Montero Attending Provider Que, Dr. Tani Arzola Primary Care Provider Que, Dr. Tani Arzola Referring Provider Emily AFRICANA STUDIES PROFESSOR, AFRICANA STUDIES PROFESSOR-C Anastacia Attending Provider HILARY CAMARGO Primary Care Unavailable KIANNA TOBAR Attending Unavailable Hilary Camargo CNP Primary Care Provider Que CARTER, Dr. Tani Arzola Primary Care Provider Dr. Sean Dos Santos DO Attending Provider Dr. Sean Dos Santos DO Referring Provider Que CARTER, Dr. Tani Arzola Attending Provider Que CARTER, Dr. Tani Arzola Referring Provider Emily AFRICANA STUDIES PROFESSOR-C, Anastacia Attending Provider Emily AFRICANA STUDIES PROFESSOR-C, Anastacia Referring Provider Atanasov PA, Dulce Attending Provider Liam MESA, Dr. Novoa Attending Provider Pastora CARTER, Dr. Dawn Attending Provider Zev MESA, Dr. Garcia Attending Provider Zev MESA, Dr. Garcia Referring Provider Luzma CARTER, Dr. Myers Attending Provider Deepika CARTER, Dr. Mack Primary Care Provider Christy eSgal MD, Dr. Myers Referring Provider Que CARTER, Dr. Tani Arzola Primary Care Provider Que CARTER, Dr. Tani Arzola Referring Provider Raya MESA, Dr. Estrada Attending Provider Que CARTER, Dr. Tani Arzola Attending Provider Dulce Patel Attending Provider Emily AFRICANA STUDIES PROFESSOR-C, Anastacia Attending Provider Emily AFRICANA STUDIES PROFESSOR-C, Anastacia Referring Provider Deepika CARTER, Dr. Mack Primary Care Provider Christy Segal MD, Dr. Myers Referring Provider Que CARTER, Dr. Tani Arzola Primary Care Provider Que CARTER, Dr. Tani Arzola Referring Provider Raya MESA, Dr. Estrada Attending Provider Kristin MESA, Dr. Yuen Emergency Provider Que CARTER, Dr. Tani Arzola Primary Care Provider [phone] Que CARTER, Dr. Tani Arzola Attending Provider Que CARTER, Dr. Tani Arzola Referring Provider Zev MESA, Dr. Garcia Attending Provider Zev MESA, Dr. Garcia Referring Provider Pastora CARTER, Dr. Dwan Attending Provider [phone] Dulce Patel Attending Provider Kristin MESA, Dr. Yuen Attending Provider [phone] Liam MESA, Dr. Novoa Attending Provider Liam MESA, Dr. Novoa Other Provider Que CARTER, Dr. Tani Arzola Primary Care Provider Que CARTER, Dr. Tani Arzola Referring Provider Que CARTER, Dr. Tani Arzola Attending Provider Deepika CARTER, Dr. Mack Primary Care Provider Unava ilable Raya MESA, Dr. Estrada Attending Provider [phone] Luzma CARTER, Dr. Myers Referring Provider [phone] Que CARTER, Dr. Tani Arzola Primary Care Provider [phone] Que CARTER, Dr. Tani Arzola Attending Provider Que CARTER, Dr. Tani Arzola Referring Provider Emily AFRICANA STUDIES PROFESSOR-C, Anastacia Attending Provider Deepika CARTER, Dr. Mack Primary Care Provider Unava ilable Raya MESA, Dr. Estrada Attending Provider Luzma CARTER, Dr. Myers Referring Provider [phone] López Guillory Attending Unavailable Radha Brothers Referring Unavailable Que, Tani Chi Primary Care Unavailable Sean Dos Santos Attending Unavailable Frederick Poe Primary Care Unavailable Louis Segal Referring Unavailable Wilfrid Foster Attending Unavailable Que, Tani Chi Primary Care Unavailable Que, Tani Chi Attending Unavailable Que, Tani Chi Primary Care Unavailable Emily AFRICANA STUDIES PROFESSOR, Anastacia Attending Unavailable Emily AFRICANA STUDIES PROFESSOR, Anastacia Referring Unavailable Que, Tani Chi Primary Care Unavailable Que, Tani Chi Attending Unavailable Que, Tani Chi Referring Unavailable Que, Tani Chi Primary Care Unavailable Que, Tani Chi Referring Unavailable Que, Tani Chi Primary Care Unavailable Que, Tani Chi Attending Unavailable Sean Dos Santos Attending Unavailable Sean Dos Santos Referring Unavailable Que, Tani Chi Primary Care Unavailable Bright Wheeler Attending Unavailable Que, Tani Chi Referring Unavailable Que, Tani Chi Primary Care Unavailable Que, Tani Chi Attending Unavailable Que, Tani Chi Referring Unavailable Que, Tani Chi Primary Care Unavailable Que, Tani Chi Referring Unavailable Que, Tani Chi Attending Unavailable Que, Tani Chi Primary Care Unavailable Que, Tani Chi Referring Unavailable Que, Tani Chi Primary Care Unavailable Que, Tani Chi Attending Unavailable Radha Brothers Attending Unavailable Zev, Radha Referring Unavailable Que, Tani Chi Primary Care Unavailable Zev Radha Attending Unavailable Zev, Radha Referring Unavailable Que, Tani Chi Primary Care Unavailable Que, Tani Chi Referring Unavailable Que, Tani Chi Attending Unavailable Que, Tani Chi Primary Care Unavailable Que, Tani Chi Referring Unavailable Que, Tani Chi Attending Unavailable Que, Tani Chi Primary Care Unavailable Que, Tani Chi Referring Unavailable Que, Tani Chi Attending Unavailable Que, Tani Chi Primary Care Unavailable Que, Tani Chi Referring Unavailable Dulce Spann Attending Unavailable Que, Tani Chi Primary Care Unavailable [employer] Consulting Unavailable Bright Wheeler Attending Unavailable Que, Tani Chi Referring Unavailable Que, Tani Chi Primary Care Unavailable López Guillory Attending Unavailable Que, Tani Chi Referring Unavailable Que, Tani Chi Primary Care Unavailable Que, Tani Chi Attending Unavailable Que, Tani Chi Primary Care Unavailable Que, Tani Chi Referring Unavailable Que, Tani Chi Attending Unavailable Que, Tani Chi Primary Care Unavailable Emily AFRICANA STUDIES PROFESSOR, Anastacia Attending Unavailable Emily AFRICANA STUDIES PROFESSOR, Anastacia Referring Unavailable Que, Tani Chi Primary Care Unavailable Que, Tani Chi Referring Unavailable Dulce Spann Attending Unavailable Que, Tani Chi Primary Care Unavailable Que, Tani Chi Referring Unavailable Emily AFRICANA STUDIES PROFESSOR, Anastacia Attending Unavailable Que, Tani Chi Primary Care Unavailable Que, Tani Chi Referring Unavailable Emily AFRICANA STUDIES PROFESSOR, Anastacia Attending Unavailable Que, Tani Chi Primary Care Unavailable Emily AFRICANA STUDIES PROFESSOR, Anastacia Referring Unavailable Emily AFRICANA STUDIES PROFESSOR, Anastacia Attending Unavailable Qeu, Tani Chi Primary Care Unavailable Sean Dos Santos Attending Unavailable Que, Tani Chi Referring Unavailable Que, Tani Chi Primary Care Unavailable Bright Wheeler Attending Unavailable Que, Tani Chi Referring Unavailable Que, Tani Chi Primary Care Unavailable Que, Tani Chi Referring Unavailable Emily AFRICANA STUDIES PROFESSOR, Anastacia Attending Unavailable Que, Tani Chi Primary Care Unavailable Que, Tani Chi Referring Unavailable Emily AFRICANA STUDIES PROFESSOR, Anastacia Attending Unavailable Que, Tani Chi Primary Care Unavailable Que, Tani Chi Referring Unavailable Louis Segal Attending Unavailable Que, Tani Chi Primary Care Unavailable Que, Tani Chi Referring Unavailable Que, Tani Chi Primary Care Unavailable Dulce Spann Attending Unavailable QueTani owen Chi Attending Unavailable Que, Tani Chi Referring Unavailable Que, Tani Chi Primary Care Unavailable Radha Brothers Attending Unavailable Radha Brothers Referring Unavailable Que, Tani Chi Primary Care Unavailable Allergies Allergy Classification Reported Allergen(s) Allergy Type Date of Onset Reaction(s) Facility Penicillins (antibiotic) (1 source) Penicillins Drug Allergy 2 [facility] (20 sources) Penicillins; Translations: [PENICILLINS] Drug Allergy 2 [facility] Comment on above: As a child. (20 sources) Latex Propensity to adverse reactions 1 [facility] (1 source) Latex Drug allergy (disorder) 5 [facility] Rep[facility] Medications Current Medications Medication Drug Class(es) Dates Sig (Normalized) Sig (Original) acetaminophen 500 mg oral tablet (12 sources) Start: 05-13-2024 take 1 tablet by mouth every six hours as needed for pain Acetaminophen 500 mg Tablet Active 500 mg PO EVERY 6 HOURS NEEDED as needed for Pain Score 1-10 0 0 May 13, 2024 12:00am [id number] 200 actuat albuterol 0.09 mg/actuat metered dose inhaler (20 sources) beta2-Adrenergic Agonist Start: 06-23-2020 Albuterol Sulfate 90 mcg/actuation HFA aerosol inhaler Active 2 NMA INHALATION Q4H as needed for shortness of breath or wheezing 1 June 23, 2020 12:00am administer with spacer Start: 06-23-2020 take 1 puff(s) by in halation every four hours Albuterol Sulfate Active 2 PUFF INHALATION Q4H 1 June 23, 2020 12:00am administer with spacer Start: 06-08-2020 End: 06-23-2020 Albuterol Sulfate 90 mcg/act uation HFA aerosol inhaler Discontinued 2 NMA INHALATION EVERY 6 HOURS as needed June 08, 2020 12:00am June 23, 2020 9:25am Start: 06-08-2020 End: 06-23-2020 take 1 puff(s) by inhalation every six hours Albuterol Sulfate Discontinued 2 PUFF INHALATION EVERY 6 HOURS June 08, 2020 12:00am June 23, 2020 9:25am Start: 10-03-2012 take 2 puff(s) by in halation every four hours as needed for wheezing albuterol HFA (PROVENTIL HFA) 90 mcg/actuation inhaler Inhale 2 Puffs as instructed every 4 hours as needed for Wheezing/Shortness of Breath. 0 10/03/2012 Active Start: 10-03-2012 take 2 puff(s) by in halation every four hours as needed for wheezing albuterol HFA (PROVENTIL HFA) 90 mcg/actuation inhaler Inhale 2 Puffs as instructed every 4 hours as needed for Wheezing/Shortness of Breath. 0 10/03/2012 Active Comment on above: Inhale 2 Puffs as in structed every 4 hours as needed for Wheezing/Shortness of Breath. amLODIPine 5 mg oral tablet (20 sources) Dihydropyridine Calcium Channel Sacha Start: 03-19-20 take 1 tablet by mouth once daily Amlodipine 5 mg tablet Active 5 mg PO DAILY March 19, 2024 12:00am Start: 03-19-2024 take 2 tablets by mo uth once daily Amlodipine 5 mg tablet Active 10 mg PO DAILY March 19, 2024 12:00am Start: 06-20-2021 End: 03-19-2024 take 2 tablets by mouth once daily Amlodipine 2.5 mg tablet Discontinued 5 mg PO DAILY June 20, 2021 9:18am March 19, 2024 10:08am Start: 06-20-2021 take 5 mg by mouth once daily Amlodipine Active 5 MG PO DAILY June 20, 2021 9:18am Start: 05-31-2021 End: 06-20-2021 Amlodipine 2.5 mg tablet Discontinued mg PO May 31, 2021 12:00am June 20, 2021 9:19am Start: 05-31-2021 End: 06-20-2021 Amlodipine Discontinued MG P O May 31, 2021 12:00am June 20, 2021 9:19am baclofen 10 mg oral tablet (12 sources) gamma-Aminobutyric Acid-ergic Agonist Start: 12-03-2024 take 1 tablet by mouth three times daily as needed for pain Baclofen 10 mg tablet Active 10 mg PO THREE TIMES A DAY as needed for abdominal pain December 03, 2024 12:00am Budesonide-Glyc opyr-Formoterol (20 sources) Corticosteroid, beta2-Adrenergic Agonist Start: 12-06-2023 Budesonide-Glyc o pyr-Formoterol (Breztri Aerosphere) 160-9-4.8 mcg/actuation HFA aerosol inhaler Active 2 NMA INHALATION TWICE A DAY December 06, 2023 12:00am Start: 12-06-2023 Budesonide-Gly copyr-Formoterol (Breztri Aerosphere) 160-9-4.8 mcg/actuation HFA aerosol inhaler Active 2 INH INHALATION TWICE A DAY December 06, 2023 12:00am Start: 02-12-2023 End: 10-02-2023 Fwsgetymli-Zkwwklkn-Gckchvsz ol (Breztri Aerosphere) 160-9-4.8 mcg/actuation HFA aerosol inhaler Discontinued 2 NMA INHALATION TWICE A DAY February 12, 2023 12:00am October 02, 2023 2:36pm Start: 02-12-2023 End: 10-02-2023 Sbtgpvkkkc-Keyitjpb-Dgkeesyi ol (Breztri Aerosphere) 160-9-4.8 mcg/actuation HFA aerosol inhaler Discontinued 2 INH INHALATION TWICE A DAY February 12, 2023 12:00am October 02, 2023 2:36pm Start: 02-12-2023 Budesonide-Gly copyr-Formoterol (Breztri Aerosphere) 160-9-4.8 mcg/actuation HFA aerosol inhaler Active 2 INH INHALATION TWICE A DAY February 11, 2023 11:00pm Start: 02-12-2023 Budesonide-Gly copyr-Formoterol (Breztri Aerosphere) 160-9-4.8 mcg/actuation HFA aerosol inhaler Active 2 INH INHALATION TWICE A DAY February 12, 2023 12:00am smoking cessation 12 hr buPROPion hydrochloride 150 mg extended release oral tablet (20 sources) Aminoketone Start: 04-29-2024 take 1 tablet by mouth twice daily, then take 1 tablet by mouth every twelve hours Bupropion Hcl (Smoking Deter) 150 mg tablet extended release 12 hr Active 150 mg PO TWICE A DAY April 29, 2024 12:00am Start: 05-14-2023 End: 06-21-2023 take 1 tablet by mouth every twelve hours Bupropion Hcl (Smoking Deter) 150 mg tablet extended release 12 hr Discontinued mg PO May 14, 2023 12:00am June 21, 2023 3:08pm Start: 05-14-2023 End: 10-02-2023 take 1 tablet by mouth twice daily Bupropion Hcl (Smoking Deter) 150 mg tablet extended release 12 hr Discontinued mg PO TWICE A DAY June 21, 2023 3:07pm October 02, 2023 2:36pm cholecalciferol 0.125 mg oral capsule (20 sources) Vitamin D Start: 12-06-2023 End: 05-13-2024 take 1 capsule by mouth once daily Cholecalciferol (Vitamin D3) 125 mcg (5,000 unit) capsule Active 125 ug PO DAILY 30 May 13, 2024 12:00am Start: 06-23-2020 End: 08-14-2023 take 1 capsule by mouth once daily Cholecalciferol (Vitamin D3) 125 mcg (5,000 unit) capsule Discontinued 125 ug PO DAILY June 23, 2020 12:00am August 14, 2023 1:56pm Cholecalciferol, Vitamin D3, (VITAMIN D) 25 mcg (1,000 unit) cap Take 1,000 Units by mouth once daily. Active diazePAM 5 mg oral tablet (4 sources) Benzodiazepine Start: 01-08-2025 take 1 tablet by mouth every eight hours as needed for muscle spasms Diazepam 5 mg tablet Active 5 mg PO EVERY 8 HOURS as needed for Muscle Spasm 10 January 08, 2025 12:00am dicyclomine hydrochloride 10 mg oral capsule (12 sources) Anticholinergic Start: 08-29-2024 take 1 capsule by mouth twice daily Dicyclomine 10 mg capsule Active 10 mg PO TWICE A DAY 30 August 29, 2024 1:00am FERROUS SULFATE, DRIED, BULK, MISC (1 source) FERROUS SULFATE, DRIED, BULK, MISC 150 mg. Active omeprazole 40 mg delayed release oral capsule (20 sources) Proton Pump Inhibitor Start: 12-03-2024 take 1 capsule by mouth once daily Omeprazole 40 mg capsule,delayed release(DR/EC) Active 40 mg PO DAILY December 03, 2024 12:00am Start: 07-15-2024 End: 12-03-2024 take 1 capsule by mouth twice daily Omeprazole 40 mg capsule,delayed release(DR/EC) Discontinued 40 mg PO TWICE A DAY 180 90 3 July 15, 2024 12:00am December 03, 2024 1:57pm Start: 04-29-2024 End: 07-15-2024 take 1 capsule by mouth once daily Omeprazole 40 mg capsule,delayed release(DR/EC) Discontinued 40 mg PO DAILY April 29, 2024 12:00am July 15, 2024 8:42am Start: 02-07-2024 End: 03-24-2024 take 1 capsule by mouth once daily Omeprazole 40 mg capsule,delayed release(DR/EC) Discontinued 40 mg PO daily 30 5 February 07, 2024 12:00am March 24, 2024 8:57am swallow whole; do not crush, chew, dissolve, cut, break Polyethylene Glycols (1 source) polyethylene gly col 3350 (PURELAX ORAL) Take by mouth once daily. One capful daily Active Potassium Acetate (1 source) POTASSIUM ACETAT E MISC 2 mg. Active potassium chloride 20 meq extended release oral tablet (12 sources) Start: 4 take 1 tablet by mouth once daily Potassium Chloride 20 mEq tablet extended release Active 20 meq PO daily February 07, 2024 12:00am pravastatin sodium 40 mg oral tablet (20 sources) HMG-CoA Reductase Inhibitor Start: 3 take 1 tablet by mouth at bedtime Pravastatin 40 mg tablet Active 40 mg PO AT BEDTIME May 14, 2023 12:00am Start: 05-14-2023 Pravastatin Ac tive MG PO May 13, 2023 11:00pm take 1 tablet by bryn th once daily pravastatin 20 mg tablet Take 20 mg by mouth once daily. Active Comment on above: Take 20 mg by mouth once daily. sucralfate 1000 mg oral tablet (20 sources) Aluminum Complex Start: 12-03-2024 take 1 tablet by mouth three times daily Sucralfate 1 gram tablet Active 1 g PO THREE TIMES A DAY December 03, 2024 12:00am Start: 07-15-2024 End: 10-13-2024 take 1 tablet by mouth three times daily Sucralfate 1 gram tablet Discontinued 1 g PO THREE TIMES A DAY 270 90 0 July 15, 2024 12:00am October 12, 2024 1:00am October 13, 2024 1:10am Start: 03-24-2024 End: 06-05-2024 take 1 tablet by mouth four times daily 1 hour(s) before bedtime Sucralfate 1 gram tablet Discontinued 1 g PO 4 TIMES DAILY 56 1 March 24, 2024 12:00am June 05, 2024 3:16pm Take 1 hour before meals and at bedtime Start: 11-22-2020 End: 05-31-2021 take 1 tablet by mouth four times daily 1 hour(s) before bedtime Sucralfate 1 GM tablet Discontinued 1 g PO 4 TIMES DAILY 120 0 November 22, 2020 1:00am May 31, 2021 10:42am Take 1 hour before meals and at bedtime SUMAtriptan 100 mg oral tablet (4 sources) Serotonin-1b and Serotonin-1d Receptor Agonist Start: 03-09-2025 take 1 tablet by mouth once daily as needed for headache Sumatriptan Succinate 100 mg tablet Active 100 mg PO DAILY as needed for headache March 09, 2025 12:00am tiotropium Br/olodaterol HCl (STIOLTO RESPIMAT INHALATION) (1 source) tiotropium Br/olodaterol HCl (STIOLTO RESPIMAT INHALATION) Inhale 2.5 mcg as instructed. Active 24 hr venlafaxine 150 mg extended release oral capsule (20 sources) Serotonin and Norepinephrine Reuptake Inhibitor Start: 12-03-2024 take 1 capsule by mouth once daily Venlafaxine 150 mg capsule,extended release 24hr Active 150 mg PO DAILY December 03, 2024 12:00am Start: 11-01-2020 End: 05-14-2023 take 1 capsule by mouth once daily Venlafaxine 75 mg capsule,extended release 24hr Discontinued 75 mg PO DAILY November 01, 2020 1:00am May 14, 2023 1:59pm Start: 06-08-2020 End: 12-06-2023 take 1 capsule by mouth once daily Venlafaxine (Effexor Xr) 150 mg capsule,extended release 24hr Discontinued 150 mg PO DAILY October 02, 2023 1:00am December 06, 2023 2:16pm take 1 capsule by [facility] once daily venlafaxine XR (EFFEXOR XR) 37.5 mg 24 hr capsule Take 150 mg by mouth once daily. Active take 1 capsule by mo uth once daily venlafaxine XR (EFFEXOR XR) 37.5 mg 24 hr capsule Take 37.5 mg by mouth once daily. 0 Active Comment on above: Take 37.5 mg by mout h once daily. Completed/Discontinued Medications Medication Drug Class(es) Dates Sig (Normalized) Sig (Original) acetaminophen 325 mg / HYDROcodone bitartrate 5 mg oral tablet (13 sources) Opioid Agonist Start: 01-27-2024 End: 02-07-2024 Hydrocodone-Acetami nophen 5-325 mg tablet Discontinued 1 {tbl} PO EVERY 6 HOURS NEEDED as needed for Pain 10 3 0 January 27, 2024 February 07, 2024 10:15am Cat bite Bitten by cat, initial encounter Start: 01-27-2024 take 1 tablet by bryn th every six hours as needed Hydrocodone-Acetaminophen Active 1 TABLE T PO EVERY 6 HOURS NEEDED 10 3 January 27, 2024 acetaminophen 325 mg / oxyCODONE hydrochloride 5 mg oral tablet (20 sources) Opioid Agonist Start: 07-04-2021 End: 09-14-2021 Oxycodone-Acetaminophen (Endocet) 5-325 mg tablet Discontinued 1 {tbl} PO EVERY 6 HOURS as needed for pain 7 3 0 July 04, 2021 September 14, 2021 3:50pm Postoperative pain Other acute postprocedural pain Start: 03-23-2021 End: 05-31-2021 Oxycodone-Acetaminophen 1 TA BLET tablet Discontinued 1 {tbl} PO EVERY 6 HOURS NEEDED as needed for Pain 12 3 0 March 23, 2021 May 31, 2021 10:42am Fracture of foot Unspecified fracture of unspecified foot, initial encounter for closed fracture Start: 03-23-2021 End: 05-31-2021 take 1 tablet by mouth every six hours as needed Oxycodone-Acetaminophen Discontinued 1 TABLET PO EVERY 6 HOURS NEEDED 12 3 March 23, 2021 May 31, 2021 10:42am anastrozole 1 mg oral tablet (20 sources) Aromatase Inhibitor Start: 08-03-2021 End: 06-08-2025 take 1 tablet by mouth once daily Anastrozole 1 mg tablet Discontinued 1 mg PO DAILY 90 1 April 02, 2023 1:22pm December 22, 2024 11:21am Infiltrating ductal carcinoma of right breast Malignant neoplasm of unspecified site of right female breast atorvastatin 20 mg oral tablet (20 sources) HMG-CoA Reductase Inhibitor Start: 06-08-2020 End: 06-04-2024 take 1 tablet by mouth once daily Atorvastatin (Lipitor) 20 mg tablet Discontinued 20 mg PO DAILY June 08, 2020 12:00am June 08, 2020 12:45pm BENEFIBER, GUAR GUM, ORAL (1 source) End: 06-27-2024 BENEFIBER, GUAR GUM, ORAL Take by mouth once daily. 06/27/2024 Discontinued calcium acetate 667 mg oral tablet (16 sources) Start: 12-06-2023 End: 03-19-2024 take 1 tablet by mouth once Calcium Acetate 667 mg tablet Discontinued 667 mg PO ONCE December 06, 2023 12:00am March 19, 2024 10:07am calcium carbonate 1250 mg / cholecalciferol 200 unt oral tablet (12 sources) Vitamin D Start: 05-13-2024 End: 07-11-2024 Calcium Carbonate-Vitamin D3 (Oyster Shell Calcium-Vit D3) 500 mg-5 mcg (200 unit) Tablet Discontinued 1 {tbl} PO TWICE DAILY WITH MEALS May 13, 2024 12:00am July 11, 2024 6:15am celecoxib 200 mg oral capsule (6 sources) Nonsteroidal Anti-inflammatory Drug End: 06-27-2024 take 1 capsule by mouth once daily celecoxib (CELEBREX) 200 mg capsule Take 200 mg by mouth once daily. 06/27/2024 Discontinued Comment on above: Take 200 mg by mouth once daily. ciprofloxacin 500 mg oral tablet (12 sources) Quinolone Antimicrobial Start: 02-19-2024 End: 02-28-2024 take 1 tablet by mouth twice daily Ciprofloxacin Hcl (Cipro) 500 mg tablet Discontinued 500 mg PO TWICE A DAY February 19, 2024 12:00am February 28, 2024 10:38am citalopram 10 mg oral tablet (20 sources) Serotonin Reuptake Inhibitor Start: 11-01-2020 End: 05-14-2023 take 1 tablet by mouth once daily Citalopram 10 mg tablet Discontinued 10 mg PO DAILY November 01, 2020 1:00am May 14, 2023 1:59pm clindamycin 300 mg oral capsule (13 sources) Lincosamide Antibacterial Start: 01-27-2024 End: 02-07-2024 take 1 capsule by mouth every eight hours Clindamycin Hcl 300 mg capsule Discontinued 300 mg PO Q8H 30 10 January 27, 2024 12:00am February 07, 2024 10:15am doxycycline monohydrate 100 mg oral capsule (14 sources) Tetracycline-clas s Drug Start: 01-26-2024 End: 02-07-2024 take 1 capsule by mouth twice daily Doxycycline Monohydrate 100 mg capsule Discontinued 100 mg PO TWICE A DAY 20 January 26, 2024 12:00am February 07, 2024 10:15am esomeprazole 40 mg delayed release oral capsule (12 sources) Proton Pump Inhibitor Start: 03-24-2024 End: 04-29-2024 take 1 capsule by mouth once daily Esomeprazole Magnesium 40 mg capsule,delayed release(DR/EC) Discontinued 40 mg PO DAILY 30 6 March 24, 2024 12:00am April 29, 2024 8:57am fenofibrate 145 mg oral tablet (6 sources) Peroxisome Proliferator Receptor alpha Agonist End: 06-27-2024 take 1 tablet by mouth once daily fenofibrate nanocrystallized (TRICOR) 145 mg tablet Take 145 mg by mouth once daily. 06/27/2024 Discontinued Comment on above: Take 145 mg by mouth once daily. ferrous sulfate 325 mg oral tablet (20 sources) Start: 08-03-2021 End: 11-13-2022 take 1 tablet by mouth once daily Ferrous Sulfate 325 mg (65 mg iron) tablet Discontinued 325 mg PO DAILY August 03, 2021 1:00am November 13, 2022 12:35pm fluticasone / salmeterol (6 sources) Corticosteroid, beta2-Adrenergic Agonist Start: 12-05-2012 End: 06-27-2024 take 1 puff(s) by inhalation every twelve hours fluticasone-salmeter ol (ADVAIR DISKUS) 250-50 mcg/dose DsDv Inhale 1 Puff as instructed every 12 hours. 1 Inhaler 3 12/05/2012 06/27/2024 Discontinued Start: 12-05-2012 take 1 puff(s) by in halation every twelve hours fluticasone-salmeterol (ADVAIR DISKUS) 250-50 mcg/dose DsDv Inhale 1 Puff as instructed every 12 hours. 1 Inhaler 3 12/05/2012 Active Comment on above: Inhale 1 Puff as ins tructed every 12 hours. 120 actuat formoterol fumarate 0.0048 mg/actuat / glycopyrrolate 0.009 mg/actuat metered dose inhaler (20 sources) beta2-Adrenergic Agonist Start: 07-19-2021 End: 02-12-2023 Glycopyrrolate-Formoter ol (Bevespi Aerosphere) 9-4.8 mcg HFA aerosol inhaler Discontinued 2 NMA INHALATION every day in the morning and in the evening 3 September 29, 2021 9:56am February 12, 2023 3:30pm Start: 07-19-2021 End: 02-12-2023 Glycopyrrolate-Formoterol (B evespi Aerosphere) 9-4.8 mcg HFA aerosol inhaler Discontinued 2 INH INHALATION every day in the morning and in the evening September 29, 2021 9:56am February 12, 2023 3:30pm Start: 08-13-2020 End: 08-13-2020 Glycopyrrolate-Formoterol (B evespi Aerosphere) 9-4.8 mcg HFA aerosol inhaler Discontinued 2 NMA INHALATION every day in the morning and in the evening 3 August 13, 2020 1:00am August 13, 2020 11:14am Start: 08-13-2020 End: 08-13-2020 Glycopyrrolate-Formoterol (B evespi Aerosphere) 9-4.8 mcg HFA aerosol inhaler Discontinued 2 PUFF INHALATION every day in the morning and in the evening August 13, 2020 1:00am August 13, 2020 11:14am hydroCHLOROthiazide 25 mg oral tablet (6 sources) Thiazide Diuretic End: 06-27-2024 take 1 tablet by mouth once daily hydrochlorothiazide 25 mg tablet Take 25 mg by mouth once daily. 06/27/2024 Discontinued Comment on above: Take 25 mg by mouth once daily. linaclotide 0.145 mg oral capsule (12 sources) Guanylate Cyclase-C Agonist Start: 06-18-2024 End: 07-08-2024 take 1 capsule by mouth once daily in the morning Linaclotide (Linzess) 145 mcg capsule Discontinued 145 ug PO EVERY MORNING 90 June 18, 2024 12:00am July 08, 2024 10:45am lisinopril 20 mg oral tablet (20 sources) Angiotensin Converting Enzyme Inhibitor Start: 06-08-2020 End: 05-31-2021 take 1 tablet by mouth once daily Lisinopril 20 mg tablet Discontinued 20 mg PO DAILY June 08, 2020 12:00am May 31, 2021 10:42am take 2 tablets by mouth once olivia ly lisinopril 10 mg tablet Take 20 mg by mouth once daily. Active take 1 tablet by mouth once nadia y lisinopril 10 mg tablet Take 10 mg by mouth once daily. 0 Active Comment on above: Take 10 mg by mouth once daily. lubiprostone 0.008 mg oral capsule (12 sources) Chloride Channel Activator Start: End: 5 take 1 capsule by mouth twice daily Lubiprostone (Amitiza) 8 mcg capsule Discontinued 8 ug PO TWICE A DAY 60 0 July 09, 2024 12:00am December 03, 2024 1:53pm Magnesium (16 sources) Start: End: take 1 tablet by mouth once daily Magnesium 250 mg tablet Discontinued 250 mg PO DAILY December 06, 2023 12:00am June 04, 2024 2:07pm Start: 12-06-2023 take 250 mg by mouth once nadia y Magnesium Active 250 MG PO DAILY December 06, 2023 12:00am mecobalamin (16 sources) Start: 12-06-2023 End: 03-19-2024 Mecobalamin (Vitamin B12) 2, 500 mcg tablet,chewable Discontinued ug PO December 06, 2023 12:00am March 19, 2024 10:07am Start: 12-06-2023 Mecobalamin (V itamin B12) Active MCG PO December 06, 2023 12:00am meloxicam 7.5 mg oral tablet (6 sources) Nonsteroidal Anti-inflammatory Drug End: 06-27-2024 take 1 tablet by mouth once daily meloxicam 7.5 mg tablet Take 7.5 mg by mouth once daily. 06/27/2024 Discontinued Comment on above: Take 7.5 mg by mouth once daily. metroNIDAZOLE 500 mg oral tablet (12 sources) Nitroimidazole Antimicrobial Start: 02-19-2024 End: 02-28-2024 take 1 tablet by mouth twice daily Metronidazole 500 mg tablet Discontinued 500 mg PO TWICE A DAY 20 10 February 19, 2024 12:00am February 28, 2024 10:38am Tiotropium-Olodater ol (20 sources) Anticholinergic, beta2-Adrenergic Agonist Start: 03-23-2021 End: 07-19-2021 Tiotropium-Olodate rol (Stiolto Respimat) 2.5-2.5 mcg/actuation mist Discontinued 2 NMA INHALATION DAILY March 23, 2021 12:00am July 19, 2021 1:00pm Start: 03-23-2021 End: 07-19-2021 Tiotropium-Olodaterol (Stiol to Respimat) 2.5-2.5 mcg/actuation mist Discontinued 2 PUFF INHALATION DAILY March 22, 2021 11:00pm July 19, 2021 12:00pm Start: 03-23-2021 End: 07-19-2021 Tiotropium-Olodaterol (Stiol to Respimat) 2.5-2.5 mcg/actuation mist Discontinued 2 PUFF INHALATION DAILY March 23, 2021 12:00am July 19, 2021 1:00pm Start: 09-13-2020 End: 09-29-2020 Tiotropium-Olodaterol (Stiol to Respimat) 2.5-2.5 mcg/actuation mist Discontinued 2 NMA INHALATION DAILY 4 September 13, 2020 1:00am September 29, 2020 10:22am Start: 09-13-2020 End: 09-29-2020 Tiotropium-Olodaterol (Stiol to Respimat) 2.5-2.5 mcg/actuation mist Discontinued 2 NMA INHALATION DAILY September 13, 2020 1:00am September 29, 2020 10:22am Start: 09-13-2020 End: 09-29-2020 Tiotropium-Olodaterol (Stiol to Respimat) 2.5-2.5 mcg/actuation mist Discontinued 2 INH INHALATION DAILY September 13, 2020 12:00am September 29, 2020 9:22am Start: 09-13-2020 End: 09-29-2020 Tiotropium-Olodaterol (Stiol to Respimat) 2.5-2.5 mcg/actuation mist Discontinued 2 INH INHALATION DAILY 4 September 13, 2020 1:00am September 29, 2020 10:22am pantoprazole 40 mg delayed release oral tablet (20 sources) Proton Pump Inhibitor Start: 11-22-2020 End: 05-31-2021 take 1 tablet by mouth once daily Pantoprazole 40 MG tablet Discontinued 40 mg PO DAILY 30 3 November 22, 2020 1:00am May 31, 2021 10:43am polyethylene glycol 3350 46837 mg powder for oral solution (20 sources) Osmotic Laxative Start: 11-01-2020 End: 08-14-2023 Polyethylene Glycol 3350 (Miralax) 17 gram/dose powder Discontinued 17 g PO DAILY November 01, 2020 1:00am August 14, 2023 1:56pm polysaccharide iron complex 150 mg oral capsule (12 sources) Start: 02-07-2024 End: 03-09-2025 take 1 capsule by mouth once daily Polysaccharide Iron Complex 150 mg iron capsule Discontinued 150 mg PO daily February 07, 2024 12:00am March 09, 2025 12:58pm 7 actuat umeclidinium 0.0625 mg/actuat / vilanterol 0.025 mg/actuat dry powder inhaler (20 sources) Anticholinergic , beta2-Adrenergi c Agonist Start: 08-16-2020 End: 09-13-2020 Umeclidinium-Vilante rol (Anoro Ellipta) 62.5-25 mcg/actuation blister with device Discontinued 1 NMA INHALATION daily 60 3 August 16, 2020 1:00am September 13, 2020 11:07am Start: 08-16-2020 End: 09-13-2020 Umeclidinium-Vilanterol (Ano ro Ellipta) 62.5-25 mcg/actuation blister with device Discontinued 1 INH INHALATION daily 60 August 16, 2020 1:00am September 13, 2020 11:07am Vitamin B Complex (B Complex-Vitamin B12) tablet (20 sources) Start: 08-01-2021 End: 11-13-2022 Vitamin B Complex (B Complex-Vitamin B12) tablet Discontinued 1 {tbl} PO DAILY August 01, 2021 1:00am November 13, 2022 12:35pm Start: 08-01-2021 End: 11-13-2022 take 1 tablet by mouth once daily Vitamin B Complex (B Complex-Vitamin B12) tablet Discontinued 1 TABLET PO DAILY August 01, 2021 1:00am November 13, 2022 12:35pm Start: 08-01-2021 End: 11-13-2022 take 1 tablet by mouth once daily Vitamin B Complex (B Complex-Vitamin B12) tablet Discontinued 1 TABLET PO DAILY August 01, 2021 12:00am November 13, 2022 11:35am Start: 08-01-2021 take 1 tablet by bryn th once daily Vitamin B Complex (B Complex-Vitamin B12) tablet Active 1 TABLET PO DAILY August 01, 2021 12:00am Start: 08-01-2021 take 1 tablet by bryn th once daily Vitamin B Complex (B Complex-Vitamin B12) tablet Active 1 TABLET PO DAILY August 01, 2021 1:00am Vonoprazan (Voquezna) 20 mg tablet (12 sources) Start: 12-03-2024 End: 03-09-2025 take 1 tablet by mouth once daily as needed for pain Vonoprazan (Voquezna) 20 mg tablet Discontinued 20 mg PO DAILY as needed for belly pain December 03, 2024 12:00am March 09, 2025 12:58pm Start: 12-03-2024 take 1 tablet by bryn th once daily as needed for pain Vonoprazan (Voquezna) 20 mg tablet Active 20 mg PO DAILY as needed for belly pain December 03, 2024 12:00am zinc gluconate 50 mg oral tablet (16 sources) Start: 12-06-2023 End: 03-19-2024 take 1 tablet by mouth once daily Zinc Gluconate 50 mg tablet Discontinued 50 mg PO DAILY December 06, 2023 12:00am March 19, 2024 10:08am Problems Active Problems Problem Classification Problem Date Documented Date Episodic/Chronic Administrative/social admission (20 sources) Patient encounter status; Translations: [Counseling, unspecified] 08-03-2021 Episodic Asthma (6 sources) Asthma; Translations: [Unspecified asthma, uncomplicated] Onset: 3 12-05-2012 Chronic Cancer of breast (20 sources) Infiltrating duct carcinoma of breast; Translations: [Malignant neoplasm of unspecified site of right female breast] Onset: Chronic Chronic kidney disease (2 sources) Chronic kidney disease; Translations: [Chronic kidney disease, stage 3a] Onset: Chronic obstructive pulmonary disease and bronchiectasis (20 sources) Chronic obstructive lung disease; Translations: [Chronic obstructive pulmonary disease, unspecified] 07-19-2021 Chronic Chronic obstructive pulmonary disease and bronchiectasis (20 sources) Bronchitis; Translations: [Bronchitis, not specified as acute or chronic] 07-13-2021 Episodic Deficiency and other anemia (20 sources) Iron deficiency anemia; Translations: [Iron deficiency anemia, unspecified] Episodic Deficiency and other anemia (20 sources) Anemia; Translations: [Anemia, unspecified] 02-08-2024 Episodic Comment on above: HX OF Hgb 6.6 with dizzine ss. Deficiency and other anemia (2 sources) Anemia, unspecified; Translations: [Anemia, unspecified] Onset: Episodic Deficiency and other anemia (2 sources) Iron deficiency anemia, unspecified; Translations: [Iron deficiency anemia, unspecified] Onset: Episodic Deficiency and other anemia (9 sources) Deficiency and other anemia E Codes: Natural/environment (15 sources) Cat bite - wound; Translations: [Bitten by cat, initial encounter] 01-26-2024 Episodic Esophageal disorders (12 sources) Gastroesophageal reflux disease; Translations: [Gastro-esophageal reflux disease without esophagitis] 02-08-2024 Chronic Comment on above: CONTROLLED WITH MED Essential hypertension (1 source) Essential (primary) hypertension; Translations: [Essential (primary) hypertension] Onset: Chronic Gastroduodenal ulcer (except hemorrhage) (13 sources) H/O: gastric ulcer; Translations: [Personal history of peptic ulcer disease] Onset: 5 12-30-2024 Episodic Headache; including migraine (5 sources) Tension-type headache; Translations: [Tension-type headache, unspecified, not intractable] Onset: 5 01-16-2025 Chronic Headache; including migraine (1 source) Headache; including migraine; Translations: [Headache, unspecified] Onset: Noninfectious gastroenteritis (12 sources) Colitis; Translations: [Noninfective gastroenteritis and colitis, unspecified] 02-27-2024 Episodic Nonmalignant breast conditions (20 sources) Mastodynia; Translations: [Pain of right breast] 09-06-2023 Episodic Other acquired deformities (20 sources) Spondylolysis; Translations: [Spondylolysis, lumbar region] 08-09-2022 Episodic Other acquired deformities (4 sources) Spondylolysis, lumbar region; Translations: [Acquired spondylolisthesis] Episodic Other bone disease and musculoskeletal deformities (20 sources) Osteopenia; Translations: [Other specified disorders of bone density and structure, unspecified site] 09-06-2023 Episodic Other bone disease and musculoskeletal deformities (7 sources) Other specified disorders of bone density and structure, unspecified site; Translations: [Disorder of bone and cartilage, unspecified] Onset: 5 09-06-2023 Episodic Other bone disease and musculoskeletal deformities (1 source) Other specified disorders of bone density and structure, multiple sites; Translations: [Other specified disorders of bone density and structure, multiple sites] Onset: Episodic Other endocrine disorders (12 sources) Hyperparathyroidism; Translations: [Hyperparathyroidism, unspecified] 04-11-2024 Chronic Comment on above: Patient is 68-year-o ld female who is under evaluation for possible hyperparathyroidism. She was recently noted to have an elevated PTH as workup was apparently underway for unexplained constipation that has led to some significant weight loss and has interfered with patient's quality of life in a significant manner. I share a detailed conversation with both and Mrs. High related to the diagnosis of hyperparathyroidism and how this is a biochemical 1 that references values for vitamin D, calcium and PTH simultaneously. I shared that there remains some skepticism about the standing of this diagnosis until we can fully demonstrate this biochemically with her labs. I also discussed the surgical indications for hyperparathyroidism and the process for localization. Mrs. High would appear to be potentially symptomatic from this diagnosis but it is not completely clear how many surgical indications she has while it is apparent that she has an ongoing workup for newly appreciated chronic kidney disease. Furthermore, there is cause to be extra cautious with proceeding with surgery given her probable increased risk related to a remote history of anterior cervical disc fusion. There is suggestion of a adenoma in the left neck. I have stressed to patient and her that we must also understand, fully as possible, the stance of her thyroid and whether or not any intervention is warranted for it. Thus I have recommended the followingUpdate 04/11/2024: Patient's repeat PTH, calcium, and vitamin D confirm a diagnosis of primary hyperparathyroidism and reflect more than adequate supplementation of patient's vitamin D in particular. Her PTH is significantly elevated over her initial level and now is over 400 on laboratory testing. Lastly, patient's thyroid ultrasound simply shows a dominant TI-RADS 2 lesion which is not indicated for biopsy on the right. I held a lengthy conversation with patient and her reviewing the pathophysiology of hyperparathyroidism and our indication to pursue surgery being both a history of osteopenia as well as newly appreciated kidney disease. There does appear to be localization to the left side as I apply bedside ultrasound and identify a candidate lesion represented is a hypoechoic focus deep to the mid polar region of the left thyroid lobe. Unfortunately, patient does have a remote history of prior anterior cervical disc fusion about 30 years ago and her incision directly overlies the area of interest. I shared with patient and her that this does increase the operative complexity. They indicate an interest in proceeding as recommended with the operation and I thus detailed to them the specific risks of the procedure including risks of recurrent laryngeal nerve injury and hypoparathyroidism. I used this as a context for describing how intraoperative nerve and PTH monitoring can be employed to reduce these risks. Hand drawings were made aware relevant to try to facilitate understanding. Patient and her were given opportunity to ask questions and all were addressed to their satisfaction. Other gastrointestinal disorders (13 sources) Constipation; Translations: [Constipation, unspecified] Onset: 1 02-07-2021 Episodic Other gastrointestinal disorders (20 sources) Chronic constipation; Translations: [Other constipation] 06-18-2024 Episodic Comment on above: WITH LOW ABD PAIN Other gastrointestinal disorders (12 sources) Occult blood in stools; Translations: [Other fecal abnormalities] 02-08-2024 Episodic Other gastrointestinal disorders (14 sources) Groin mass; Translations: [Other intra-abdominal and pelvic swelling, mass and lump] 12-22-2024 Episodic Other lower respiratory disease (20 sources) Dyspnea; Translations: [Shortness of breath] 11-01-2020 Episodic Other nutritional; endocrine; and metabolic disorders (1 source) Hypercalcemia; Translations: [Hypercalcemia] Onset: 5 Chronic Peripheral and visceral atherosclerosis (1 source) Peripheral vascular disease, unspecified; Translations: [Peripheral vascular disease, unspecified] Onset: 5 Chronic Residual codes; unclassified (1 source) History of thoracic surgery; Translations: [Other specified postprocedural states] Episodic Residual codes; unclassified (5 sources) History of right mastectomy; Translations: [Other specified postprocedural states] 07-05-2021 Episodic Residual codes; unclassified (18 sources) Other specified postprocedural states; Translations: [Status post right breast lumpectomy] 07-05-2021 Episodic Residual codes; unclassified (12 sources) History of parathyroidectomy; Translations: [Other specified postprocedural states] 06-05-2024 Episodic Comment on above: Patient is 69-year-o ld female history of primary hyperparathyroidism now 10 days status post left parathyroidectomy x 2. Intraoperatively it was difficult to determine location of patient's adenoma even with application of surgical biopsy, but final pathology did reveal hyperplastic parathyroid of the left superior position. Postoperative PTH was also reassuring x 2 (ranging 40-50). Now today patient presents for her first postoperative visit and expresses an overall improvement in her wellbeing. Reflecting on this feeling, Mrs. High confirms she is pleased with her decision to move forward with surgery. She exhibits some hoarseness of her voice, but I cannot definitively connect this to her surgery given her concurrent complaints of cough and congestion. She is well-healing on exam. I normally would have obtained labs today following patient's clinic visit, however, patient just had calcium obtained yesterday by PCP and showed it to be elevated at 10.3. She is still supplementing postoperatively but with her normal PTH and this elevated calcium we will need to de-escalate this supplementation. She is advised to decrease by 1 tab daily and then we will recheck in 2 weeks.Update 06/05/2024: Patient arrives for second postoperative visit. Her voice is qualitatively normal. Her energy level continues to improve. She is well-healing on exam. Her pre-clinic laboratories, however, reflect a higher normal calcium level and a slightly high PTH level. With both of these levels going in the same direction this is concerning for possible persistent hyperparathyroidism yet she does continue to supplement her calcium. At this point I recommend discontinuing calcium supplementation but continuing vitamin D supplementation. I would like to recheck her PTH and calcium at 6 months postop. If persistent hyperparathyroidism is detected would favor proceeding back through localization but did discuss with patient that she would most likely represent a case of a double adenoma given that pathology, and it only patient's left superior gland showed hyperplastic changes (versus 4 gland hyperplasia). While not ideal given that patient has had 2 prior neck surgeries she would have urgent surgical planes of the right neck. We would have to weigh out as well whether it is worth it to the patient to undergo reoperative surgery. Skin and subcutaneous tissue infections (14 sources) Cellulitis; Translations: [Cellulitis, unspecified] 01-26-2024 Episodic Spondylosis; intervertebral disc disorders; other back problems (20 sources) Degeneration of lumbar intervertebral disc; Translations: [Other intervertebral disc degeneration, lumbar region] Chronic Spondylosis; intervertebral disc disorders; other back problems (20 sources) Neck pain; Translations: [Low back pain] Onset: 4 10-07-2013 Episodic Sprains and strains (4 sources) Strain of neck muscle; Translations: [Strain of muscle, fascia and tendon at neck level, initial encounter] 01-16-2025 Episodic Substance-related disorders (20 sources) Cigarette smoker ; Translations: [Nicotine dependence, cigarettes, uncomplicated] Onset: 4 Chronic Thyroid disorders (1 source) Hypothyroidism, unspecified; Translations: [Hypothyroidism, unspecified] Onset: 5 Chronic Past or Other Problems Problem Classification Problem Date Documented Da te Episodic/Chronic Abdominal pain (20 sources) Pain in female pelvis; Translations: [Pelvic and perineal pain] Onset: 11-26-2024 06-27-2024 Episodic Comment on above: [facility]. [facility] Acute and unspecified renal failure (1 source) Acute kidney failure, unspecified; Translations: [Acute kidney failure, unspecified] Onset: 10-30-2024 Episodic Other gastrointestinal disorders (1 source) Other intra-abdominal and pelvic swelling, mass and lump; Translations: [Other intra-abdominal and pelvic swelling, mass and lump] Onset: 12-29-2024 Episodic Other nervous system disorders (6 sources) Numbness of hand; Translations: [Anesthesia of skin] Onset: 10-07-2013 10-07-2013 Episodic Other screening for suspected conditions (not mental disorders or infectious disease) (20 sources) Encounter for screening for malignant neoplasm of respiratory organs; Translations: [Special screening for malignant neoplasms of respiratory organs] Onset: 08-25-2024 Episodic Screening and history of mental health and substance abuse codes (1 source) Personal history of nicotine dependence; Translations: [Personal history of nicotine dependence] Onset: 09-15-2024 Episodic Results Test Name Value Interpretation Reference Range Facility Anion gap in Serum or Plasma Ordered By: Cristino Degroot on 06-08-2025 Anion gap [Moles/Vol] 12 mmol/L - [facility] BUN/creatinine ratioOrdered By: Cristino Degroot on 06-08-2025 Urea nitrogen/Creatinine [Mass ratio] 14.1 mg/mg - [facility] Bilirubin, totalOrdered By: Cristino Degroot on 06-08-2025 Bilirubin [Mass/Vol] 0.40 mg/dL 0.00-1.30 [facility] Carbon dioxide, total [Moles /volume] in Central venous bloodOrdered By: Cristino Degroot on 06-08-2025 CO2 [Moles/Vol] 24.6 mmol/L 21.0-32.0 [facility] Chloride assayOrdered By: Henrik Degroot on 06-08-2025 Chloride [Moles/Vol] 102 mmol/L 98-108 [facility] Comprehensive Metabolic Prof ilon 06-08-2025 Albumin [Mass/Vol] 4.4 g/dL Normal 3.4-4.8 [facility] Comment on above: Performed By: #### [id number] #### [facility] [address] [facility] [address] Albumin/Globulin [Mass ratio] 1.8 {ratio} Normal 0.9-2.4 [facility] Comment on above: Performed By: #### [id number] #### [facility] [address] [facility] [address] ALK PHOS 64 U/L Normal 35-104 [facility] Comment on above: Performed By: #### [id number] #### [facility] [address] [facility] [address] ALT [Catalytic activity/Vol] 14 U/L Normal <=34 [facility] Comment on above: Performed By: #### [id number] #### [facility] [address] [place], [address] AST [Catalytic activity/Vol] 21 U/L Normal <=31 [facility] Comment on above: Performed By: #### [id number] #### [facility] [address] [place], [address] Bilirubin [Mass/Vol] 0.40 mg/dL Normal 0.00-1.30 [facility] Comment on above: Performed By: #### [id number] #### [facility] [address] [place], [address] BUN/CRE 14.1 RATIO Normal 10-20 [facility] Comment on above: Performed By: #### [id number] #### [facility] [address] [place], [address] Calcium [Mass/Vol] 9.8 mg/dL Normal 7.6-11.0 [facility] Comment on above: Performed By: #### [id number] #### [facility] [address] [place], [address] Chloride [Moles/Vol] 102 mmol/L Normal 98-108 [facility] Comment on above: Performed By: #### L 500.4050 #### [facility] [address] [place], [address] CO2 [Moles/Vol] 24.6 mmol/L Normal 21.0-32.0 [facility] Comment on above: Performed By: #### L 500.4050 #### [facility] [address] [place], [address] Creatinine [Mass/Vol] 1.44 mg/dL High 0.70-1.20 [facility] Comment on above: Performed By: #### L 500.4050 #### [facility] [address] [place], [address] ECRCL 31.21 ml/min Low 50-250 [facility] Comment on above: Performed By: #### L 500.4050 #### [facility] [address] [place], [address] GAP 12 Normal 5-15 [facility] Comment on above: Performed By: #### L 500.4050 #### [facility] [address] [place], [address] GFR/1.73 sq M.predicted among non-blacks MDRD (S/P/Bld) [Vol rate/Area] 39 mL/min/{1.73_m2} Low >60 [facility] Comment on above: Result Comment: mL/m in/1.73m2 CKD-EPI Creatinine Equation (2020) Performed By: #### L 500.4050 #### [facility] [address] [place], [address] Globulin (S) [Mass/Vol] 2.5 g/dL Normal 2.2-4.2 [facility] Comment on above: Performed By: #### L 500.4050 #### [facility] [address] [place], [address] Glucose [Mass/Vol] 95 mg/dL Normal 70-99 [facility] Comment on above: Performed By: #### L 500.4050 #### [facility] [address] [place], [address] Potassium [Moles/Vol] 3.9 mmol/L Normal 3.3-5.1 [facility] Comment on above: Performed By: #### L 500.4050 #### [facility] [address] [place], [address] Sodium [Moles/Vol] 139 mmol/L Normal 133-145 [facility] Comment on above: Performed By: #### L 500.4050 #### [facility] [address] [place], [place], [id number] T PROT 6.8 g/dL Normal 5.9-8.4 [facility] Comment on above: Performed By: #### L 500.4050 #### [facility] [address] [place], [place], [id number] Urea nitrogen [Mass/Vol] 20 mg/dL High 4-19 [facility] Comment on above: Performed By: #### L 500.4050 #### [facility] [address] [place], [place], [id number] Glomerular filtration rate ( GFR) estimation/1.73 sq m using serum, plasma, or whole bOrdered By: Cristino Degroot on 06-08-2025 GFR/1.73 sq M.predicted among non-blacks MDRD (S/P/Bld) [Vol rate/Area] 39 mL/min/{1.73_m2} Low >60 [facility] Comment on above: mL/min/1.73m2 CKD-EP I Creatinine Equation (2020) Laboratory - Chemistry and C hemistry - challengeOrdered By: Cristino Degroot on 06-08-2025 AST [Catalytic activity/Vol] 21 U/L <32 [facility] Oncology Visit Reporton 05-25 Oncology Visit Report [facility] [place] [facility] [address] [place] [address] OFFICE VISIT Date of Service: 06/08/25 1401 MR#: [id number] Acct: [id number] Name: MATY HIGH Rep #: [id number] : 1955 From: Anastacia Diaz NP [employer] -C Age/Sex: 70/F Location: [facility] Status: Signed HPI Subjective Date of Service 06/08/25 Chief Complaint Breast cancer on treatment History of Present Illness 70-year-old female who presented after an abnormal screening mammogram. No palpable abnormalities felt by patient or surgery. May 31, 2021 Right breast, core biopsy:Invasive ductal carcinoma with the following characteristics:Nuclear grade ???1/3Maximal length ???10mm ANTIBODY /CLONE [id number] (DO-7) negativeKi-67 (30-9) positiveCK8 (88ifqiX00)positiveCK5-6 (D5 1684) negativeCalponin-1 (CV137N) hickirkeX80 (BC28)negativeE-Cad (ECH-6) positiveCOX-2 (SP21) positiveMORPHOMETRIC ANALYSIS ER (clone 6F11) positive, 95% strong intensity ME (clone 16/1E2) positive, 65% moderate intensityHer-2Neu (clone CB11) negative 0 July 04, 2021 right breast partial mastectomy with sentinel lymph node biopsy: MICROSCOPIC DIAGNOSISA. Right breast mass, lumpectomy with wire localization:Invasive ductal carcinoma.See cancer summary in the comment section.B. Right axillary lymph node dissection:Twelve out of twelve lymph nodes, negative for metastatic carcinoma.SJ:charlette 07/07/2021OMMENTBREAST CANCER SUMMARYProcedure ???lumpectomy with needle localization Specimen laterality ???Invasive tumor:Tumor site ???8 o???clock, 4 cm from the nippleTumor size ???1.2 x 1.1 x 1 cmHistologic type ???invasive ductal carcinoma (not otherwise specified)Histologic grade ([place] grade):Glandular/tubular differentiation score -2Nuclear pleomorphism score -2Mitotic count score -1Overall grade ???grade 1(score of 5)Tumor focality ???single focus of invasive carcinomaDuctal carcinoma in situ ???not identifiedLobular carcinoma in situ -not identifiedTumor extension:Skin ???not presentNipple ???not applicableSkeletal muscle ???no skeletal muscle is present.Margins:Invasive carcinoma margin ???the tumor is 0.4 cm away from the closest posterior margin.Regional lymph nodes:Total number of lymph nodes examined ???12Number of sentinel lymph nodes examined -0Number of lymph nodes with macrometastases, micrometastases or isolated tumor cells -0Treatment effect ???no known presurgical therapy.Lymphvascular invasion ???not identifiedDermal lymphvascular invasion ???not applicableAdditional Pathologic Findings ???intraductal hyperplasia without atypia.Ancillary Studies: Previously performed on same tumor ([id number]/ [id number])ER: positive (>95%, strong intensity)ME: positive (65%, moderate intensity)Qns3gjv: negative (0)Microcalcifications ???not identifiedClinical History -Please make reference to previous specimen ([id number]) right breast, core biopsy with diagnosis of invasive ductal carcinoma.PATHOLOGIC STAGE: [id number] pMx Treatment summary: July 04, 2021 right breast partial mastectomy with sentinel lymph node biopsy. Adjuvant radiation: 08/15/2021 ??? 08/26/2021: received 2850 cGy in 5 fractions to the right partial breast Adjuvant hormonal therapy with Arimidex: August 29, 2021- Adjuvant chemotherapy: Declined no Oncotype DX done. Interval History The patient is presenting to clinic accompanied for a planned 6 month follow up. Reports good tolerance and adherence to anastrozole. No change in mild chronic exertional dyspnea. + Chronic back- unchanged even with packing, as she is in the process of moving. Specifically denies weight loss, headaches, hot flashes, joint pain, dizziness, CP, palpitations, cough, abd pain, swelling of her extremities. Performs breast self exam monthly and denies any changes. [facility] Medical History Screening for breast cancer Low iron History of GI bleed Wears hearing aid Wears glasses Cancer Easy bruising History of ulceration Gastric reflux Shortness of breath on exertion Emphysema, unspecified COPD (chronic obstructive pulmonary disease) History of pain when walking History of edema Hyperparathyroidism Encounter for screening for malignant neoplasm of lung Encounter for screening for malignant neoplasm of lung in current smoker with 30 pack year history or greater Sciatic leg pain Wears dentures Post-menopausal Depression High cholesterol Back pain Chronic cough Hypertension Iron deficiency anemia due to chronic blood loss Osteopenia Invasive ductal carcinoma of right breast Arthritis GERD (gastroesophageal reflux disease) Smoking greater than 30 pack years Emphysema lung Bronchitis Asthma Surgical History History of esophagogastroduodenoscop y (EGD) H/O parathyroidectomy S/P pa (more content not included)... Normal [facility] Potassium measurement (mass/ volume)Ordered By: Cristino Degroot on 06-08-2025 Potassium (Unsp spec) [Mass/Vol] 3.9 mmol/L 3.3-5.1 [facility] Serum creatinine measurement (mass/volume)Ordered By: Cristino Degroot on 06-08-2025 Creatinine [Mass/Vol] 1.44 mg/dL High 0.70-1.20 [facility] Serum globulin measurementOr dered By: Cristino Degroot on 06-08-2025 Globulin (S) [Mass/Vol] 2.5 g/dL 2.2-4.2 [facility] Serum glucose measurement (m ass/volume)Ordered By: Cristino Degroot on 06-08-2025 Glucose [Mass/Vol] 95 mg/dL 70-99 [facility] Serum or plasma alanine jones otransferase (ALT) measurementOrdered By: Cristino Degroot on 06-08-2025 ALT [Catalytic activity/Vol] 14 U/L <35 [facility] Serum or plasma albumin jose antonio urement (mass/volume)Ordered By: Cristino Degroot on 06-08-2025 Albumin [Mass/Vol] 4.4 g/dL 3.4-4.8 [facility] Serum or plasma albumin/glob ulin mass ratioOrdered By: Cristino Degroot on 06-08-2025 Albumin/Globulin [Mass ratio] 1.8 {ratio} 0.9-2.4 [facility] Serum or plasma alkaline ju sphatase measurementOrdered By: Cristino Degroot on 06-08-2025 ALP [Catalytic activity/Vol] 64 U/L 35-104 [facility] Serum or plasma calcium jose antonio urement (mass/volume)Ordered By: Cristino Degroot on 06-08-2025 Calcium [Mass/Vol] 9.8 mg/dL 7.6-11.0 [facility] Serum or plasma urea nitroge n measurement (mass/volume)Ordered By: Cristino Degroot on 06-08-2025 Urea nitrogen [Mass/Vol] 20 mg/dL High 4-19 [facility] Sodium levelOrdered By: Domenic Degroot on 06-08-2025 Sodium [Moles/Vol] 139 mmol/L 133-145 [facility] Total proteinOrdered By: Gume Degroot on 06-08-2025 Protein [Mass/Vol] 6.8 g/dL 5.9-8.4 [facility] Absolute lymphocyte countOrd ered By: Tani Grey on 05-14-2025 Lymphocytes Auto (Unsp spec) [#/Vol] 0.99 10*3/uL 0.83-4.51 [facility] Absolute neutrophil countOrd ered By: Tani Grey on 05-14-2025 Neutrophils (Bld) [#/Vol] 3.7 10*3/uL 2.0-7.7 [facility] Anion gap in Serum or Plasma Ordered By: Tani Grey on 05-14-2025 Anion gap [Moles/Vol] 12 mmol/L - [facility] Automated blood erythrocyte countOrdered By: Tani Grey on 05-14-2025 RBC (Bld) [#/Vol] 4.21 10*6/uL Normal 4.2-5.4 [facility] Comment on above: Performed By: #### L 500.4050, L100.0100, L506.1001, L501.9520 ####[facility] [address] [facility] [place], [place], [id number] Automated blood hematocrit ( percentage)Ordered By: Tani Grey on 05-14-2025 Hematocrit (Bld) [Volume fraction] 36.6 % Low 37-47 [facility] Comment on above: Performed By: #### L 500.4050, L100.0100, L506.1001, L501.9520 ####[facility] [address] [place], [address] Automated lymphocyte count a s percentage of total leukocytesOrdered By: Tani Grey on 05-14-2025 Lymphocytes/100 WBC Auto (Unsp spec) 19.1 % 19-41 [facility] BUN/creatinine ratioOrdered By: Tani Grey on 05-14-2025 Urea nitrogen/Creatinine [Mass ratio] 15.7 mg/mg 10- [facility] Basophil percentageOrdered B y: Tani Grey on 05-14-2025 Basophils/100 WBC (Bld) 0.6 % Normal 0-1 [facility] Comment on above: Performed By: #### L 500.4050, L100.0100, L506.1001, L501.9520 ####[facility] [address] [place], [address] Bilirubin, totalOrdered By: Tani Grey on 05-14-2025 Bilirubin [Mass/Vol] 0.31 mg/dL 0.00-1.30 [facility] CBC W/Diff, Automatedon 04-25 Absolute Lymph 0.99 X10 3/uL Normal 0.83-4.51 [facility] Comment on above: Performed By: #### L 500.4050, L100.0100, L506.1001, L501.9520 ####[facility] [address] [place], [address] Absolute Neut 3.7 X10 3/uL Normal 2.0-7.7 [facility] Comment on above: Performed By: #### L 500.4050, L100.0100, L506.1001, L501.9520 ####[facility] [address] [place], [address] IG% 0.400 Normal 0.0-0.9 [facility] Comment on above: Result Comment: IG% - Immature Granulocytes (promyelocytes, myelocytes and metamyelocytes) > 1% indicates that a LEFT SHIFT is Present. Performed By: #### L 500.4050, L100.0100, L506.1001, L501.9520 ####[facility] [address] [place], [address] Lymphocytes/100 WBC (Bld) 19.1 % Normal 19-41 [facility] Comment on above: Performed By: #### L 500.4050, L100.0100, L506.1001, L501.9520 ####[facility] [address] [place], [address] Nucleated RBC (Bld) [#/Vol] 0 10*3/uL Normal 0-5 [facility] Comment on above: Performed By: #### L 500.4050, L100.0100, L506.1001, L501.9520 ####[facility] [address] [place], [address] RDW SD 40.7 fl Normal 35.1-43.9 [facility] Comment on above: Performed By: #### L 500.4050, L100.0100, L506.1001, L501.9520 ####[facility] [address] [place], [address] Carbon dioxide, total [Moles /volume] in Central venous bloodOrdered By: Tani Grey on 05-14-2025 CO2 [Moles/Vol] 25.0 mmol/L 21.0-32.0 [facility] Chloride assayOrdered By: Carroll Grey on 05-14-2025 Chloride [Moles/Vol] 104 mmol/L 98-108 [facility] Comprehensive Metabolic Prof ilon 05-14-2025 Albumin [Mass/Vol] 4.0 g/dL Normal 3.4-4.8 [facility] Comment on above: Performed By: #### L 500.4050, L100.0100, L506.1001, L501.9520 ####[facility] [address] [place], [address] Albumin/Globulin [Mass ratio] 1.8 {ratio} Normal 0.9-2.4 [facility] Comment on above: Performed By: #### L 500.4050, L100.0100, L506.1001, L501.9520 ####[facility] [address] [place], [address] ALK PHOS 65 U/L Normal 35-104 [facility] Comment on above: Performed By: #### L 500.4050, L100.0100, L506.1001, L501.9520 ####[facility] [address] [place], [address] ALT [Catalytic activity/Vol] 11 U/L Normal <=34 [facility] Comment on above: Performed By: #### L 500.4050, L100.0100, L506.1001, L501.9520 ####[facility] [address] [place], [address] AST [Catalytic activity/Vol] 21 U/L Normal <=31 [facility] Comment on above: Performed By: #### L 500.4050, L100.0100, L506.1001, L501.9520 ####[facility] [address] [place], [address] Bilirubin [Mass/Vol] 0.31 mg/dL Normal 0.00-1.30 [facility] Comment on above: Performed By: #### L 500.4050, L100.0100, L506.1001, L501.9520 ####[facility] [address] [place], [address] BUN/CRE 15.7 RATIO Normal 10-20 [facility] Comment on above: Performed By: #### L 500.4050, L100.0100, L506.1001, L501.9520 ####[facility] [address] [place], [address] Calcium [Mass/Vol] 9.7 mg/dL Normal 7.6-11.0 [facility] Comment on above: Performed By: #### L 500.4050, L100.0100, L506.1001, L501.9520 ####[facility] [address] [place], [address] Chloride [Moles/Vol] 104 mmol/L Normal 98-108 [facility] Comment on above: Performed By: #### L 500.4050, L100.0100, L506.1001, L501.9520 ####[facility] [address] [place], [address] CO2 [Moles/Vol] 25.0 mmol/L Normal 21.0-32.0 [facility] Comment on above: Performed By: #### L 500.4050, L100.0100, L506.1001, L501.9520 ####[facility] [address] [place], [address] Creatinine [Mass/Vol] 1.18 mg/dL Normal 0.70-1.20 [facility] Comment on above: Performed By: #### L 500.4050, L100.0100, L506.1001, L501.9520 ####[facility] [address] [place], [address] GAP 12 Normal 5-15 [facility] Comment on above: Performed By: #### L 500.4050, L100.0100, L506.1001, L501.9520 ####[facility] [address] [place], [address] GFR/1.73 sq M.predicted among non-blacks MDRD (S/P/Bld) [Vol rate/Area] 50 mL/min/{1.73_m2} Low >60 [facility] Comment on above: Result Comment: mL/m in/1.73m2 CKD-EPI Creatinine Equation (2020) Performed By: #### L 500.4050, L100.0100, L506.1001, L501.9520 ####[facility] [address] [place], [address] Globulin (S) [Mass/Vol] 2.2 g/dL Normal 2.2-4.2 [facility] Comment on above: Performed By: #### L 500.4050, L100.0100, L506.1001, L501.9520 ####[facility] [address] [place], [address] Glucose [Mass/Vol] 90 mg/dL Normal 70-99 [facility] Comment on above: Performed By: #### L 500.4050, L100.0100, L506.1001, L501.9520 ####[facility] [address] [place], [address] Potassium [Moles/Vol] 3.9 mmol/L Normal 3.3-5.1 [facility] Comment on above: Performed By: #### L 500.4050, L100.0100, L506.1001, L501.9520 ####[facility] [address] [place], [address] Sodium [Moles/Vol] 140 mmol/L Normal 133-145 [facility] Comment on above: Performed By: #### L 500.4050, L100.0100, L506.1001, L501.9520 ####[facility] [address] [place], [address] T PROT 6.1 g/dL Normal 5.9-8.4 [facility] Comment on above: Performed By: #### L 500.4050, L100.0100, L506.1001, L501.9520 ####[facility] [address] [place], [address] Urea nitrogen [Mass/Vol] 19 mg/dL Normal 4-19 [facility] Comment on above: Performed By: #### L 500.4050, L100.0100, L506.1001, L501.9520 ####[facility] [address] [place], [address] Eosinophil percentageOrdered By: Tani Grey on 05-14-2025 Eosinophils/100 WBC (Bld) 2.1 % Normal 0-5 [facility] Comment on above: Performed By: #### L 500.4050, L100.0100, L506.1001, L501.9520 ####[facility] [address] [place], [place], [id number] Erythrocyte distribution wid th ratioOrdered By: Tani Grey on 05-14-2025 Erythrocyte distribution width (RBC) [Ratio] 13.0 % Normal 11.6-14.6 [facility] Comment on above: Performed By: #### L 500.4050, L100.0100, L506.1001, L501.9520 ####[facility] [address] [place], [place], [id number] Erythrocyte distribution wid th standard deviationOrdered By: Tani Grey on 05-14-2025 Erythrocyte distribution width (RBC) [Ratio] 40.7 fl 35.1-43.9 [facility] Glomerular filtration rate ( GFR) estimation/1.73 sq m using serum, plasma, or whole bOrdered By: Tani Grey on 05-14-2025 GFR/1.73 sq M.predicted among non-blacks MDRD (S/P/Bld) [Vol rate/Area] 50 mL/min/{1.73_m2} Low >60 [facility] Comment on above: mL/min/1.73m2 CKD-EP I Creatinine Equation (2020) Hemoglobin measurementOrdere d By: Tani Grey on 05-14-2025 Hemoglobin (Bld) [Mass/Vol] 12.4 g/dL Normal 12.0-15.0 [facility] Comment on above: Performed By: #### L 500.4050, L100.0100, L506.1001, L501.9520 ####[facility] [address] [place], [place], [id number] Immature granulocytes/100 WB C Auto (Bld)Ordered By: Tani Grey on 05-14-2025 Immature granulocytes/100 WBC (Bld) 0.400 % 0.0-0.9 [facility] Comment on above: IG% - Immature Granu locytes (promyelocytes, myelocytes and metamyelocytes) > 1% indicates that a LEFT SHIFT is Present. Laboratory - Chemistry and C hemistry - challengeOrdered By: Tani Que on 05-14-2025 AST [Catalytic activity/Vol] 21 U/L <32 [facility] MCV (mean corpuscular volume ) determinationOrdered By: Tani Grey on 05-14-2025 MCV (RBC) [Entitic vol] 86.9 fL Normal 81-99 [facility] Comment on above: Performed By: #### L 500.4050, L100.0100, L506.1001, L501.9520 ####[facility] [address] [place], [place], [id number] Mean corpuscular hemoglobin (MCH) determinationOrdered By: Tani Grey on 05-14-2025 MCH (RBC) [Entitic mass] 29.5 pg Normal 27.0-32.0 [facility] Comment on above: Performed By: #### L 500.4050, L100.0100, L506.1001, L501.9520 ####[facility] [address] [place], [place], [id number] Mean corpuscular hemoglobin concentration (MCHC) determinationOrdered By: Tani Grey on 05-14-2025 MCHC (RBC) [Mass/Vol] 33.9 g/dL Normal 32-36 [facility] Comment on above: Performed By: #### L 500.4050, L100.0100, L506.1001, L501.9520 ####[facility] [address] [place], [address] Mean platelet volume determi nationOrdered By: Tani Grey on 05-14-2025 Platelet mean volume (Bld) [Entitic vol] 11.6 fL Normal 6.2-12.0 [facility] Comment on above: Performed By: #### L 500.4050, L100.0100, L506.1001, L501.9520 ####[facility] [address] [place], [address] Monocyte percentageOrdered B y: Tani Grey on 05-14-2025 Monocytes/100 WBC (Bld) 6.2 % Normal 0-10 [facility] Comment on above: Performed By: #### L 500.4050, L100.0100, L506.1001, L501.9520 ####[facility] [address] [place], [address] Neutrophil percentageOrdered By: Tani Grey on 05-14-2025 Neutrophils/100 WBC (Bld) 71.6 % High 47-70 [facility] Comment on above: Performed By: #### L 500.4050, L100.0100, L506.1001, L501.9520 ####[facility] [address] [place], [address] Nucleated red blood cell per centageOrdered By: Tani Que on 05-14-2025 Nucleated RBC/100 WBC (Bld) [Ratio] 0 % 0-5 [facility] Platelet countOrdered By: Carroll Grey on 05-14-2025 Platelets (Bld) [#/Vol] 239 10*3/uL Normal 150-450 [facility] Comment on above: Performed By: #### L 500.4050, L100.0100, L506.1001, L501.9520 ####[facility] [address] [place], [address] Potassium measurement (mass/ volume)Ordered By: Tani Grey on 05-14-2025 Potassium (Unsp spec) [Mass/Vol] 3.9 mmol/L 3.3-5.1 [facility] Serum creatinine measurement (mass/volume)Ordered By: Tani Grey on 05-14-2025 Creatinine [Mass/Vol] 1.18 mg/dL 0.70-1.20 [facility] Serum globulin measurementOr dered By: Tani Grey on 05-14-2025 Globulin (S) [Mass/Vol] 2.2 g/dL 2.2-4.2 [facility] Serum glucose measurement (m ass/volume)Ordered By: Tani Grey on 05-14-2025 Glucose [Mass/Vol] 90 mg/dL 70-99 [facility] Serum or plasma alanine jones otransferase (ALT) measurementOrdered By: Tani Grey on 05-14-2025 ALT [Catalytic activity/Vol] 11 U/L <35 [facility] Serum or plasma albumin jose antonio urement (mass/volume)Ordered By: Tani Grey on 05-14-2025 Albumin [Mass/Vol] 4.0 g/dL 3.4-4.8 [facility] Serum or plasma albumin/glob ulin mass ratioOrdered By: Tani Grey on 05-14-2025 Albumin/Globulin [Mass ratio] 1.8 {ratio} 0.9-2.4 [facility] Serum or plasma alkaline ju sphatase measurementOrdered By: Tani Grey 05-14-2025 ALP [Catalytic activity/Vol] 65 U/L 35-104 [facility] Serum or plasma calcium jose antonio urement (mass/volume)Ordered By: Tani Grey on 05-14-2025 Calcium [Mass/Vol] 9.7 mg/dL 7.6-11.0 [facility] Serum or plasma urea nitroge n measurement (mass/volume)Ordered By: Tani Grey on 05-14-2025 Urea nitrogen [Mass/Vol] 19 mg/dL 4-19 [facility] Sodium levelOrdered By: Tani Grey on 05-14-2025 Sodium [Moles/Vol] 140 mmol/L 133-145 [facility] TSH DL <= 0.005 mIU/L QnOrde red By: Tani Grey on 05-14-2025 TSH Qn 0.862 uIU/mL 0.300-4.200 [facility] Thyroid Stim Hormone (TSH)on 05-14-2025 TSH 0.862 uIU/mL Normal 0.300-4.200 [facility] Comment on above: Performed By: #### L 500.4050, L100.0100, L506.1001, L501.9520 ####[facility] [address] [place], [place], [address] Total proteinOrdered By: Tani Grey on 05-14-2025 Protein [Mass/Vol] 6.1 g/dL 5.9-8.4 [facility] Vitamin D,25 Hydroxyon 05-14 Vitamin D 25-OH 57.9 ng/mL Normal 30-100 [facility] Comment on above: Result Comment: Marlena min D Status Deficiency: <20 ng/mL (50nmol/L) Insufficiency: 20-30 ng/mL (50-75 nmol/L) Sufficiency: 30-100 ng/mL (75-250 nmol/L) Toxicity: >100 ng/mL (>250 nmol/L) Performed By: #### L 500.4050, L100.0100, L506.1001, L501.9520 ####[facility] [address] [place], [place], [address] White blood cell (WBC) count Ordered By: Tani Grey on 05-14-2025 WBC (Bld) [#/Vol] 5.2 10*3/uL Normal 4.4-11.0 [facility] Comment on above: Performed By: #### L 500.4050, L100.0100, L506.1001, L501.9520 ####[facility] [address] [place], [place], [address] Absolute lymphocyte countOrd ered By: Anastacia Diaz on 04-15-2025 Lymphocytes Auto (Unsp spec) [#/Vol] 1.63 10*3/uL 0.83-4.51 [facility] Absolute neutrophil countOrd ered By: Anastacia Diaz on 04-15-2025 Neutrophils (Bld) [#/Vol] 4.5 10*3/uL 2.0-7.7 [facility] Anion gap in Serum or Plasma Ordered By: Anastacia Diaz on 04-15-2025 Anion gap [Moles/Vol] 13 mmol/L 5-15 [facility] Automated lymphocyte count a s percentage of total leukocytesOrdered By: Anastacia Diaz on 07-23-2025 Lymphocytes/100 WBC Auto (Unsp spec) 24.3 % 19-41 [facility] BUN/creatinine ratioOrdered By: Anastacia GuerraEmily on 04-15-2025 Urea nitrogen/Creatinine [Mass ratio] 12.9 mg/mg 10- [facility] Basophil percentageOrdered B y: Anastacia Emily on 04-15-2025 Basophils/100 WBC (Bld) 0.6 % 0-1 [facility] Bilirubin, totalOrdered By: Anastacia Emily on 04-15-2025 Bilirubin [Mass/Vol] 0.50 mg/dL 0.00-1.30 [facility] CBC W/Diff, Automatedon 03-25 Absolute Lymph 1.63 X10 3/uL Normal 0.83-4.51 [facility] Comment on above: Performed By: #### L 100.0500 #### [facility] Laboratory [address] [place], [address] Absolute Neut 4.5 X10 3/uL Normal 2.0-7.7 [facility] Comment on above: Performed By: #### L 100.0500 #### [facility] [address] [place], [address] Basophils/100 WBC (Bld) 0.6 % Normal 0-1 [facility] Comment on above: Performed By: #### L 100.0500 #### [facility] [address] [place], [address] Eosinophils/100 WBC (Bld) 1.5 % Normal 0-5 [facility] Comment on above: Performed By: #### L 100.0500 #### [facility] [address] [place], [address] Erythrocyte distribution width (RBC) [Ratio] 14.2 % Normal 11.6-14.6 [facility] Comment on above: Performed By: #### L 100.0500 #### [facility] [address] [place], [address] Hematocrit (Bld) [Volume fraction] 38.6 % Normal 37-47 [facility] Comment on above: Performed By: #### L 100.0500 #### [facility] [address] [place], [address] Hemoglobin (Bld) [Mass/Vol] 13.0 g/dL Normal 12.0-15.0 [facility] Comment on above: Performed By: #### L 100.0500 #### [facility] [address] [place], [address] IG% 0.400 Normal 0.0-0.9 [facility] Comment on above: Result Comment: IG% - Immature Granulocytes (promyelocytes, myelocytes and metamyelocytes) > 1% indicates that a LEFT SHIFT is Present. Performed By: #### L 100.0500 #### [facility] [address] [place], [address] Lymphocytes/100 WBC (Bld) 24.3 % Normal 19-41 [facility] Comment on above: Performed By: #### L 100.0500 #### [facility] [address] [place], [address] MCH (RBC) [Entitic mass] 29.5 pg Normal 27.0-32.0 [facility] Comment on above: Performed By: #### L 100.0500 #### [facility] [address] [place], [address] MCHC (RBC) [Mass/Vol] 33.7 g/dL Normal 32-36 [facility] Comment on above: Performed By: #### L 100.0500 #### [facility] [address] [place], [address] MCV (RBC) [Entitic vol] 87.7 fL Normal 81-99 [facility] Comment on above: Performed By: #### L 100.0500 #### [facility] [address] [place], [address] Monocytes/100 WBC (Bld) 6.3 % Normal 0-10 [facility] Comment on above: Performed By: #### L 100.0500 #### [facility] [address] [place], [address] Neutrophils/100 WBC (Bld) 66.9 % Normal 47-70 [facility] Comment on above: Performed By: #### L 100.0500 #### [facility] [address] [place], [address] Nucleated RBC (Bld) [#/Vol] 0 10*3/uL Normal 0-5 [facility] Comment on above: Performed By: #### L 100.0500 #### [facility] [address] [place], [address] Platelet mean volume (Bld) [Entitic vol] 10.4 fL Normal 6.2-12.0 [facility] Comment on above: Performed By: #### L 100.0500 #### [facility] [address] [place], [address] Platelets (Bld) [#/Vol] 209 10*3/uL Normal 150-450 [facility] Comment on above: Performed By: #### L 100.0500 #### [facility] [address] [place], [address] RBC (Bld) [#/Vol] 4.40 10*6/uL Normal 4.2-5.4 [facility] Comment on above: Performed By: #### L 100.0500 #### [facility] [address] [place], [address] RDW SD 45.9 fl High 35.1-43.9 [facility] Comment on above: Performed By: #### L 100.0500 #### [facility] [address] [place], [address] WBC (Bld) [#/Vol] 6.7 10*3/uL Normal 4.4-11.0 [facility] Comment on above: Performed By: #### L 100.0500 #### [facility] [address] [place], [address] Carbon dioxide, total [Moles /volume] in Central venous bloodOrdered By: Anastacia Emily on 04-15-2025 CO2 [Moles/Vol] 23.6 mmol/L 21.0-32.0 [facility] Chloride assayOrdered By: Ty ra Diaz on 04-15-2025 Chloride [Moles/Vol] 103 mmol/L 98-108 [facility] Comprehensive Metabolic Prof ilon 04-15-2025 Albumin [Mass/Vol] 4.3 g/dL Normal 3.4-4.8 [facility] Comment on above: Performed By: #### L 100.0500 #### [facility] [address] [place], [address] Albumin/Globulin [Mass ratio] 1.9 {ratio} Normal 0.9-2.4 [facility] Comment on above: Performed By: #### L 100.0500 #### [facility] [address] [place], [address] ALK PHOS 62 U/L Normal 35-104 [facility] Comment on above: Performed By: #### L 100.0500 #### [facility] [address] [place], [address] ALT [Catalytic activity/Vol] 11 U/L Normal <=34 [facility] Comment on above: Performed By: #### L 100.0500 #### [facility] [address] [place], [address] AST [Catalytic activity/Vol] 23 U/L Normal <=31 [facility] Comment on above: Performed By: #### L 100.0500 #### [facility] [address] [place], [address] Bilirubin [Mass/Vol] 0.50 mg/dL Normal 0.00-1.30 [facility] Comment on above: Performed By: #### L 100.0500 #### [facility] [address] [place], [address] BUN/CRE 12.9 RATIO Normal 10-20 [facility] Comment on above: Performed By: #### L 100.0500 #### [facility] [address] [place], [address] Calcium [Mass/Vol] 9.5 mg/dL Normal 7.6-11.0 [facility] Comment on above: Performed By: #### L 100.0500 #### [facility] [address] [place], [address] Chloride [Moles/Vol] 103 mmol/L Normal 98-108 [facility] Comment on above: Performed By: #### L 100.0500 #### [facility] [address] [place], [address] CO2 [Moles/Vol] 23.6 mmol/L Normal 21.0-32.0 [facility] Comment on above: Performed By: #### L 100.0500 #### [facility] [address] [place], [address] Creatinine [Mass/Vol] 1.13 mg/dL Normal 0.70-1.20 [facility] Comment on above: Performed By: #### L 100.0500 #### [facility] [address] [place], [address] ECRCL 40.87 ml/min Low 50-250 [facility] Comment on above: Performed By: #### L 100.0500 #### [facility] [address] [place], [address] GAP 13 Normal 5-15 [facility] Comment on above: Performed By: #### L 100.0500 #### [facility] [address] [place], [address] GFR/1.73 sq M.predicted among non-blacks MDRD (S/P/Bld) [Vol rate/Area] 52 mL/min/{1.73_m2} Low >60 [facility] Comment on above: Result Comment: mL/m in/1.73m2 CKD-EPI Creatinine Equation (2020) Performed By: #### L 100.0500 #### [facility] [address] [place], [address] Globulin (S) [Mass/Vol] 2.3 g/dL Normal 2.2-4.2 [facility] Comment on above: Performed By: #### L 100.0500 #### [facility] [address] [place], [address] Glucose [Mass/Vol] 105 mg/dL High 70-99 [facility] Comment on above: Performed By: #### L 100.0500 #### [facility] [address] [place], [address] Potassium [Moles/Vol] 3.9 mmol/L Normal 3.3-5.1 [facility] Comment on above: Performed By: #### L 100.0500 #### [facility] [address] [place], [address] Sodium [Moles/Vol] 140 mmol/L Normal 133-145 [facility] Comment on above: Performed By: #### L 100.0500 #### [facility] [address] [place], [address] T PROT 6.6 g/dL Normal 5.9-8.4 [facility] Comment on above: Performed By: #### L 100.0500 #### [facility] [address] [place], [place], [address] Urea nitrogen [Mass/Vol] 15 mg/dL Normal 4-19 [facility] Comment on above: Performed By: #### L 100.0500 #### [facility] [address] [place], [address] Eosinophil percentageOrdered By: Anastacia Diaz on 04-15-2025 Eosinophils/100 WBC (Bld) 1.5 % 0-5 [facility] Erythrocyte distribution wid th ratioOrdered By: Anastacia GuerraEmily on 04-15-2025 Erythrocyte distribution width (RBC) [Ratio] 14.2 % 11.6-14.6 [facility] Erythrocyte distribution wid th standard deviationOrdered By: [facility] Emily on 04-15-2025 Erythrocyte distribution width (RBC) [Ratio] 45.9 fl High 35.1-43.9 [facility] Ferritinon 04-15-2025 Ferritin [Mass/Vol] 30 ng/mL Normal 22-378 [facility] Comment on above: Performed By: #### L 100.0500 #### [facility] [address] [place], [address] Glomerular filtration rate ( GFR) estimation/1.73 sq m using serum, plasma, or whole bOrdered By: Anastacia Diaz on 04-15-2025 GFR/1.73 sq M.predicted among non-blacks MDRD (S/P/Bld) [Vol rate/Area] 52 mL/min/{1.73_m2} Low >60 [facility] Comment on above: mL/min/1.73m2 CKD-EP I Creatinine Equation (2020) Hematocrit Auto (Bld) [Volum e fraction]Ordered By: Anastacia Diaz on 04-15-2025 Hematocrit (Bld) [Volume fraction] 38.6 % 37-47 [facility] Hemoglobin measurementOrdere d By: Anastacia Diaz on 04-15-2025 Hemoglobin (Bld) [Mass/Vol] 13.0 g/dL 12.0-15.0 [facility] Immature granulocytes/100 WB C Auto (Bld)Ordered By: Anastacia Diaz on 04-15-2025 Immature granulocytes/100 WBC (Bld) 0.400 % 0.0-0.9 [facility] Comment on above: IG% - Immature Granu locytes (promyelocytes, myelocytes and metamyelocytes) > 1% indicates that a LEFT SHIFT is Present. Iron measurement (mass/mass) Ordered By: Anastacia Diaz on 04-15-2025 Iron (Unsp spec) [Mass/Mass] 62 ug/dL 50-170 [facility] Iron+Iron Binding Capacityon 04-15-2025 Iron [Mass/Vol] 62 ug/dL Normal 50-170 [facility] Comment on above: Performed By: #### L 100.0500 #### [facility] [address] [place], [address] IRON SATURATION 15.0 Normal 13-59 [facility] Comment on above: Performed By: #### L 100.0500 #### [facility] [address] [place], [address] TIBC 423 ug/dL Normal 250-450 [facility] Comment on above: Performed By: #### L 100.0500 #### [facility] [address] [place], [address] UIBC 361 ug/dL Normal 228-428 [facility] Comment on above: Performed By: #### L 100.0500 #### [facility] [address] [place], [address] Laboratory - Chemistry and C hemistry - challengeOrdered By: Anastacia Diaz on 04-15-2025 AST [Catalytic activity/Vol] 23 U/L <32 [facility] MCV (mean corpuscular volume ) determinationOrdered By: Anastacia Diaz on 04-15-2025 MCV (RBC) [Entitic vol] 87.7 fL 81-99 [facility] Mean corpuscular hemoglobin (MCH) determinationOrdered By: Anastacia Diaz on 04-15-2025 MCH (RBC) [Entitic mass] 29.5 pg 27.0-32.0 [facility] Mean corpuscular hemoglobin concentration (MCHC) determinationOrdered By: Anastacia Diaz on 04-15-2025 MCHC (RBC) [Mass/Vol] 33.7 g/dL 32-36 [facility] Mean platelet volume determi nationOrdered By: Anastacia Diaz on 04-15-2025 Platelet mean volume (Bld) [Entitic vol] 10.4 fL 6.2-12.0 [facility] Monocyte percentageOrdered B y: Anastacia Diaz on 04-15-2025 Monocytes/100 WBC (Bld) 6.3 % 0-10 [facility] Neutrophil percentageOrdered By: Anastacia Diaz on 04-15-2025 Neutrophils/100 WBC (Bld) 66.9 % 47-70 [facility] No Panel InformationOrdered By: Anastacia Diaz on 04-15-2025 Unsaturated Iron Binding Capacity 361 ug/dL 228-428 [facility] Nucleated red blood cell per centageOrdered By: Anastacia Diaz on 04-15-2025 Nucleated RBC/100 WBC (Bld) [Ratio] 0 % 0-5 [facility] Oncology Visit Reporton 03-25 Oncology Visit Report [facility] [place] [facility] [address] [place] [address] OFFICE VISIT Date of Service: 04/15/25 1334 MR#: [id number] Acct: [id number] Name: MATY HIGH Rep #: [id number] : 1955 From: Anastacia Diaz NP [employer]C Age/Sex: 70/F Location: [facility] [place] Status: Signed HPI Subjective Date of Service 04/15/25 Chief Complaint Breast cancer on treatment History of Present Illness 70-year-old female who presented after an abnormal screening mammogram. No palpable abnormalities felt by patient or surgery. May 31, 2021 Right breast, core biopsy:Invasive ductal carcinoma with the following characteristics:Nuclear grade ???1/3Maximal length ???10mm ANTIBODY /CLONE [id number] (DO-7) negativeKi-67 (30-9) positiveCK8 (47ttsyW07)positiveCK5-6 (D5 1684) negativeCalponin-1 (ST907H) dbepdemcD35 (BC28)negativeE-Cad (ECH-6) positiveCOX-2 (SP21) positiveMORPHOMETRIC ANALYSIS ER (clone 6F11) positive, 95% strong intensity ME (clone 16/1E2) positive, 65% moderate intensityHer-2Neu (clone CB11) negative 0 July 04, 2021 right breast partial mastectomy with sentinel lymph node biopsy: MICROSCOPIC DIAGNOSISA. Right breast mass, lumpectomy with wire localization:Invasive ductal carcinoma.See cancer summary in the comment section.B. Right axillary lymph node dissection:Twelve out of twelve lymph nodes, negative for metastatic carcinoma.SJ:charlette 07/07/2021OMMENTBREAST CANCER SUMMARYProcedure ???lumpectomy with needle localization Specimen laterality ???Invasive tumor:Tumor site ???8 o???clock, 4 cm from the nippleTumor size ???1.2 x 1.1 x 1 cmHistologic type ???invasive ductal carcinoma (not otherwise specified)Histologic grade ([place] grade):Glandular/tubular differentiation score -2Nuclear pleomorphism score -2Mitotic count score -1Overall grade ???grade 1(score of 5)Tumor focality ???single focus of invasive carcinomaDuctal carcinoma in situ ???not identifiedLobular carcinoma in situ -not identifiedTumor extension:Skin ???not presentNipple ???not applicableSkeletal muscle ???no skeletal muscle is present.Margins:Invasive carcinoma margin ???the tumor is 0.4 cm away from the closest posterior margin.Regional lymph nodes:Total number of lymph nodes examined ???12Number of sentinel lymph nodes examined -0Number of lymph nodes with macrometastases, micrometastases or isolated tumor cells -0Treatment effect ???no known presurgical therapy.Lymphvascular invasion ???not identifiedDermal lymphvascular invasion ???not applicableAdditional Pathologic Findings ???intraductal hyperplasia without atypia.Ancillary Studies: Previously performed on same tumor ([id number]/ [id number])ER: positive (>95%, strong intensity)ME: positive (65%, moderate intensity)Wzk6lju: negative (0)Microcalcifications ???not identifiedClinical History -Please make reference to previous specimen ([id number]) right breast, core biopsy with diagnosis of invasive ductal carcinoma.PATHOLOGIC STAGE: [id number] pMx Treatment summary: July 04, 2021 right breast partial mastectomy with sentinel lymph node biopsy. Adjuvant radiation: 08/15/2021 ??? 08/26/2021: received 2850 cGy in 5 fractions to the right partial breast Adjuvant hormonal therapy with Arimidex: August 29, 2021- Adjuvant chemotherapy: Declined no Oncotype DX done. Interval History The patient is presenting to clinic accompanied for a planned 3 month follow up. Reports good tolerance and adherence to anastrozole. No change in mild chronic exertional dyspnea. Specifically denies weight loss, headaches, hot flashes, joint pain, dizziness, CP, palpitations, cough, abd pain, swelling of her extremities. Performs breast self exam monthly and denies any changes. Nodule in right groin has disappeared. [facility] Medical History Low iron History of GI bleed Wears hearing aid Wears glasses Cancer Easy bruising History of ulceration Gastric reflux Shortness of breath on exertion Emphysema, unspecified COPD (chronic obstructive pulmonary disease) History of pain when walking History of edema Hyperparathyroidism Encounter for screening for malignant neoplasm of lung Encounter for screening for malignant neoplasm of lung in current smoker with 30 pack year history or greater Sciatic leg pain Wears dentures Post-menopausal Depression High cholesterol Back pain Chronic cough Hypertension Iron deficiency anemia due to chronic blood loss Osteopenia Invasive ductal carcinoma of right breast Arthritis GERD (gastroesophageal reflux disease) Smoking greater than 30 pack years Emphysema lung Bronchitis Asthma Surgical History History of esophagogastroduodenoscop y (EGD) H/O parathyroidectomy S/P parathyroidectomy Hx of colonoscopy Hx of fusion o (more content not included)... Normal [facility] Platelet countOrdered By: Michael Diaz on 04-15-2025 Platelets (Bld) [#/Vol] 209 10*3/uL 150-450 [facility] Potassium measurement (mass/ volume)Ordered By: Anastacia Diaz on 04-15-2025 Potassium (Unsp spec) [Mass/Vol] 3.9 mmol/L 3.3-5.1 [facility] RBC Auto (Bld) [#/Vol]Ordere d By: Anastacia Diaz on 04-15-2025 RBC (Bld) [#/Vol] 4.40 10*6/uL 4.2-5.4 [facility] Serum creatinine measurement (mass/volume)Ordered By: Anastacia Diaz on 04-15-2025 Creatinine [Mass/Vol] 1.13 mg/dL 0.70-1.20 [facility] Serum globulin measurementOr dered By: Anastacia Diaz on 04-15-2025 Globulin (S) [Mass/Vol] 2.3 g/dL 2.2-4.2 [facility] Serum glucose measurement (m ass/volume)Ordered By: Anastacia Diaz on 04-15-2025 Glucose [Mass/Vol] 105 mg/dL High 70-99 [facility] Serum or plasma alanine jones otransferase (ALT) measurementOrdered By: Anastacia Diaz on 04-15-2025 ALT [Catalytic activity/Vol] 11 U/L <35 [facility] Serum or plasma albumin jose antonio urement (mass/volume)Ordered By: Anastacia Diaz 04-15-2025 Albumin [Mass/Vol] 4.3 g/dL 3.4-4.8 [facility] Serum or plasma albumin/glob ulin mass ratioOrdered By: Anastacia Diaz 04-15-2025 Albumin/Globulin [Mass ratio] 1.9 {ratio} 0.9-2.4 [facility] Serum or plasma alkaline ju sphatase measurementOrdered By: Anastacia Diaz on 04-15-2025 ALP [Catalytic activity/Vol] 62 U/L 35-104 [facility] Serum or plasma calcium jose antonio urement (mass/volume)Ordered By: Anastacia Diaz 04-15-2025 Calcium [Mass/Vol] 9.5 mg/dL 7.6-11.0 [facility] Serum or plasma ferritin reji surement (mass/volume)Ordered By: Anastacia Diaz 04-15-2025 Ferritin [Mass/Vol] 30 ng/mL 22-378 [facility] Serum or plasma iron saturat ion measurement (mass fraction)Ordered By: Anastacia Emily on 04-15-2025 Iron saturation [Mass fraction] 15.0 % 13-59 [facility] Serum or plasma urea nitroge n measurement (mass/volume)Ordered By: Anastacia Diaz on 04-15-2025 Urea nitrogen [Mass/Vol] 15 mg/dL 4-19 [facility] Sodium levelOrdered By: Anastacia Emily on 04-15-2025 Sodium [Moles/Vol] 140 mmol/L 133-145 [facility] Total proteinOrdered By: James boswell Emily on 04-15-2025 Protein [Mass/Vol] 6.6 g/dL 5.9-8.4 [facility] White blood cell (WBC) count Ordered By: Anastacia Emily on 04-15-2025 WBC (Bld) [#/Vol] 6.7 10*3/uL 4.4-11.0 [facility] EGD Reporton 03-11-2025 EGD Report [facility] Medical Records Department [address] [place] [address] EGD Report MR#: [id number] Acct: [id number] Name: MATY HIGH Rep #: [id number] : 1955 69 From: Bright Wheeler DO PCP: Dr. Tani Grey MD Status:[facility] Patient Name: Maty High Procedure Date: 03/11/2025 11:45 AM Date of : 1955 Age: 69 Procedure: Upper GI endoscopy Indications: Epigastric abdominal pain, Peptic ulcer Providers: Bright Wheeler DO Referring MD: Tani Grey MD Medicines: Monitored Anesthesia Care Patient Profile: This is a 69 year old female. Refer to note in patient chart for documentation of history and physical. Patient has symptoms of acute epigastric abdominal pain and chronic heartburn. Complications: No immediate complications. Procedure: Pre-Anesthesia Assessment: - Prior to the procedure, a History and Physical was performed, and patient medications and allergies were reviewed. The patient is competent. The risks and benefits of the procedure and the sedation options and risks were discussed with the patient. All questions were answered and informed consent was obtained. Patient identification and proposed procedure were verified by the physician in the pre-procedure area. Mental Status Examination: alert and oriented. Airway Examination: normal oropharyngeal airway and neck mobility. Respiratory Examination: clear to auscultation. CV Examination: normal. Prophylactic Antibiotics: The patient does not require prophylactic antibiotics. Prior Anticoagulants: The patient has taken no anticoagulant or antiplatelet agents except for NSAID medication. ASA Grade Assessment: II - A patient with mild systemic disease. After reviewing the risks and benefits, the patient was deemed in satisfactory condition to undergo the procedure. The anesthesia plan was to use monitored anesthesia care (MAC). Immediately prior to administration of medications, the patient was re-assessed for adequacy to receive sedatives. The heart rate, respiratory rate, oxygen saturations, blood pressure, adequacy of pulmonary ventilation, and response to care were monitored throughout the procedure. The physical status of the patient was re-assessed after the procedure. After obtaining informed consent, the endoscope was passed under direct vision. Throughout the procedure, the patient's blood pressure, pulse, and oxygen saturations were monitored continuously. The gastroscope was introduced through the mouth, and advanced to the third part of the duodenum. Small bowel enteroscopy was deemed necessary. The upper GI endoscopy was accomplished without difficulty. The patient tolerated the procedure well. Scope In: 12:01:15 PM Scope Out: 12:04:30 PM Total Procedure Duration Time 0 hours 3 minutes 15 seconds Findings: No gross lesions were noted in the entire esophagus. Patchy mild inflammation characterized by erythema was found in the gastric antrum. Biopsies were taken with a cold forceps for histology. Verification of patient identification for the specimen was done. Biopsies were taken with a cold forceps for Helicobacter pylori testing. Verification of patient identification for the specimen was done. Estimated blood loss was minimal. Two 5 mm angiodysplastic lesions without bleeding were found in the duodenal bulb and in the second portion of the duodenum. Coagulation for destruction of remaining portion of lesion using heater probe was successful. Estimated blood loss was minimal. Impression: - No gross lesions in the entire esophagus. - Chronic gastritis. Biopsied. - Two non-bleeding angiodysplastic lesions in the duodenum. Treated with a heater probe. Recommendation: - Discharge patient to home. - Resume previous diet. - Continue present medications. Procedure Code(s): --- Professional --- 67961, Small intestinal endoscopy, enteroscopy beyond second portion of duodenum, not including ileum; with biopsy, single or multiple CPT copyright 2021 [employer]. All rights reserved. The codes documented in this report are preliminary and upon inspector assemblies and installations review may be revised to meet current compliance requirements. Bright Wheeler DO 03/11/2025 12:09:57 PM This report has been signed electronically. Number of Addenda: 0 Note Initiated On: 03/11/2025 11:45 AM 03/11/25 1210 Date Bright Wheeler DO Cosigner Signature: Date (if indicated) CC: Dr. Tani Grey MD; Bright Wheeler DO Date Dictated: 03/11/25 1145 Date Transcribed: Data Compiler: WADE Signed Normal [facility] Immunohistochemical Stainson 03-11-2025 Immunohistochemical Stains Patient Age/Sex Location Account Attending Physician MATY HIGH 69/F EN [id number] Bright Wheeler DO Specimen: [id number] Received: 03/11/25 Status: SUSANNAH Kovacs Num: [id number] Spec Type: EGD BIOPSY Subm Dr: Bright Wheeler DO HEADER OPERATION: EGD with biopsy and bipolar electrohemostasis PRE-OP DIAGNOSIS: Anemia, history of gastric ulcer TISSUE SUBMITTED: A- Gastric antrum biopsy MICROSCOPIC DIAGNOSIS A. Gastric antrum, biopsy: Antral mucosa with features of reactive gastropathy. IHC negative for H.pylori organisms. MICROSCOPIC DESCRIPTION Slides are reviewed. All matched controls reacted appropriately. These tests were developed and their performance characteristics determined by [facility]. They may not have been cleared or approved by the U.S. Food and Drug Administration. The FDA has determined that such clearance or approval is not necessary. The above immunohistochemical/dualI SH markers are viewed by the Pathologist. GROSS DESCRIPTION A. Received in fixative is one container labeled with the patient's name and designated Gastric antrum biopsy. The specimen consists of two irregular fragments of light toney soft tissue that in aggregate measure 0.3 and 0.4 cm. The specimen is totally submitted in one cassette. KEVIN/ 03/11/2025 [facility]:[id number] Patient Age/Sex Location Account Attending Physician MATY HIGH 69/F EN [id number] Bright Wheeler DO Signed (signature on file) Dr. Coleen Miguel MD 03/17/25 0837 Normal [facility] Comment on above: Performed By: #### P NICOLASWI ####[facility] [id number] [facility] [place], [place], [id number] MR/POSTOP.[place] 03-11-2025 MR/POSTOP.[facility] Medical Records Department [address] [place] [address] Anesthesia Postop Eval I 03/11/25 1217 MR#: [id number] Acct: [id number] Name: MATY HIGH Rep #: [id number] : 1955 69 From: Donnell Cuba PCP: Dr. Tani Grey MD Status:[facility] Y Race: C Location: [place] [address] Anesthesia: Postop Eval I Current Vital Signs Temperature: 97.8 F Pulse Rate: 67 Blood Pressure: 118/60 Respiratory Rate: 16 Pulse Ox: 98 Oxygen Delivery Method: Room Air Assessment Airway patent: Yes Spontaneous unlabored respirations: Yes Mental status: Asleep nausea: No Vomiting: No Anesthesia Complication: No Fluid Hydration Crystalloid volume administer (ml): 300 Total IV fluid infused: 300 Progress Note Anesthesia document: Postop Eval 1 completed: Yes 03/11/25 1218 Date Donnell Cuba Cosigner Signature: Date CC: Signed Normal [facility] MR/[id number] 03-11-2025 [facility] Medical Records Department [address] [place] [address] Anesthesia Postop Eval II 03/11/25 1615 MR#: [id number] Acct: [id number] Name: MATY HIGH Rep #: [id number] : 1955 69 From: Malissa Henriquez CRNA PCP: Dr. Tani Grey MD Status:[facility] Y Race: C Location: EN Anesthesia Postop Eval I Sum Postop Eval Completion status Anesthesia document: Postop Eval 1 completed: Yes Anesthesia Postop Eval I Summary Anesthesia Postop Eval I Summary: Anesthesia Postop Eval I: Assessment Summary Airway patent Yes 03/11/25 12:18 [email or web address] Spontaneous unlabored Yes 03/11/25 12:18 [email or web address] respirations Mental status Asleep 03/11/25 12:18 [email or web address] nausea No 03/11/25 12:18 [email or web address] Vomiting No 03/11/25 12:18 [email or web address] Anesthesia Postop Eval I: Fluid Summary Crystalloid volume administer 300 03/11/25 12:18 [email or web address] (ml) Colloids volume administered ( ml) Blood Product volume administered (ml) Total IV fluid infused 300 03/11/25 12:18 [email or web address] Anesthesia Postop Eval I: Summary Notes Anesthesia Complication No 03/11/25 12:18 [email or web address] Anesthesia Complication Comment: Post-operative progress note Anesthesia: Postop Eval II Evaluation Mental status: Awake Pain Level: 0 nausea: No Vomiting: No 03/11/25 1615 Date Malissa lizzy SANDERSON Cosigner Signature: Date CC: Signed Normal [facility] Absolute lymphocyte countOrd ered By: Tani Grey on 02-09-2025 Lymphocytes Auto (Unsp spec) [#/Vol] 1.20 10*3/uL 0.83-4.51 [facility] Absolute neutrophil countOrd ered By: Tani Grey on 02-09-2025 Neutrophils (Bld) [#/Vol] 3.5 10*3/uL 2.0-7.7 [facility] Anion gap in Serum or Plasma Ordered By: Tani Grey on 02-09-2025 Anion gap [Moles/Vol] 9 mmol/L 5- [facility] Automated lymphocyte count a s percentage of total leukocytesOrdered By: Tani Grey on 02-09-2025 Lymphocytes/100 WBC Auto (Unsp spec) 22.7 % - [facility] BUN/creatinine ratioOrdered By: Tani Grey on 02-09-2025 Urea nitrogen/Creatinine [Mass ratio] 13.8 mg/mg 10- [facility] Basophil percentageOrdered B y: Tani Grey on 02-09-2025 Basophils/100 WBC (Bld) 0.4 % 0-1 [facility] Bilirubin, totalOrdered By: Tani Grey on 02-09-2025 Bilirubin [Mass/Vol] 0.25 mg/dL 0.00-1.30 [facility] CBC W/Diff, Automatedon 01-22 PLT EST ADEQUATE Normal ADEQ [facility] Comment on above: Performed By: #### L 100.0500 #### [facility] [address] [place], [place], [id number] Anisocytosis Ql (Bld) 1+ Normal [facility] Comment on above: Performed By: #### L 100.0500 #### [facility] [address] [place], [place], [id number] Carbon dioxide, total [Moles /volume] in Central venous bloodOrdered By: Tani Grey on 02-09-2025 CO2 [Moles/Vol] 25.5 mmol/L 21.0-32.0 [facility] Chloride assayOrdered By: Carroll Grey on 02-09-2025 Chloride [Moles/Vol] 107 mmol/L 98-108 [facility] Comprehensive Metabolic Prof ilon 02-09-2025 Albumin [Mass/Vol] 4.1 g/dL Normal 3.4-4.8 [facility] Comment on above: Performed By: #### L 100.0500 #### [facility] [address] [place], [place], [id number] Albumin/Globulin [Mass ratio] 1.7 {ratio} Normal 0.9-2.4 [facility] Comment on above: Performed By: #### L 100.0500 #### [facility] [address] [place], [place], [id number] ALK PHOS 57 U/L Normal 35-104 [facility] Comment on above: Performed By: #### L 100.0500 #### [facility] [address] [place], [place], [phone] ALT [Catalytic activity/Vol] 15 U/L Normal <=34 [facility] Comment on above: Performed By: #### L 100.0500 #### [facility] [address] [place], [address] AST [Catalytic activity/Vol] 21 U/L Normal <=31 [facility] Comment on above: Performed By: #### L 100.0500 #### [facility] [address] [place], [address] Bilirubin [Mass/Vol] 0.25 mg/dL Normal 0.00-1.30 [facility] Comment on above: Performed By: #### L 100.0500 #### [facility] [address] [place], [address] BUN/CRE 13.8 RATIO Normal 10-20 [facility] Comment on above: Performed By: #### L 100.0500 #### [facility] [address] [place], [address] Calcium [Mass/Vol] 9.5 mg/dL Normal 7.6-11.0 [facility] Comment on above: Performed By: #### L 100.0500 #### [facility] [address] [place], [address] Chloride [Moles/Vol] 107 mmol/L Normal 98-108 [facility] Comment on above: Performed By: #### L 100.0500 #### [facility] [address] [place], [address] CO2 [Moles/Vol] 25.5 mmol/L Normal 21.0-32.0 [facility] Comment on above: Performed By: #### L 100.0500 #### [facility] [address] [place], [address] Creatinine [Mass/Vol] 1.16 mg/dL Normal 0.70-1.20 [facility] Comment on above: Performed By: #### L 100.0500 #### [facility] [address] [place], [address] GAP 9 Normal 5-15 [facility] Comment on above: Performed By: #### L 100.0500 #### [facility] [address] [place], [address] GFR/1.73 sq M.predicted among non-blacks MDRD (S/P/Bld) [Vol rate/Area] 51 mL/min/{1.73_m2} Low >60 [facility] Comment on above: Result Comment: mL/m in/1.73m2 CKD-EPI Creatinine Equation (2020) Performed By: #### L 100.0500 #### [facility] [address] [place], [address] Globulin (S) [Mass/Vol] 2.4 g/dL Normal 2.2-4.2 [facility] Comment on above: Performed By: #### L 100.0500 #### [facility] [address] [place], [address] Glucose [Mass/Vol] 91 mg/dL Normal 70-99 [facility] Comment on above: Performed By: #### L 100.0500 #### [facility] [address] [place], [address] Potassium [Moles/Vol] 4.4 mmol/L Normal 3.3-5.1 [facility] Comment on above: Performed By: #### L 100.0500 #### [facility] [address] [place], [address] Sodium [Moles/Vol] 141 mmol/L Normal 133-145 [facility] Comment on above: Performed By: #### L 100.0500 #### [facility] [address] [place], [address] T PROT 6.5 g/dL Normal 5.9-8.4 [facility] Comment on above: Performed By: #### L 100.0500 #### [facility] [address] [place], [place], [phone] Urea nitrogen [Mass/Vol] 16 mg/dL Normal - [facility] Comment on above: Performed By: #### L 100.0500 #### [facility] [address] [place], [address] Eosinophil percentageOrdered By: Tani Grey on 02-09-2025 Eosinophils/100 WBC (Bld) 1.9 % 0-5 [facility] Erythrocyte distribution wid th ratioOrdered By: [facility] 02-09-2025 Erythrocyte distribution width (RBC) [Ratio] 21.2 % High 11.6-14.6 [facility] Erythrocyte distribution wid th standard deviationOrdered By: [facility] on 02-09-2025 Erythrocyte distribution width (RBC) [Ratio] 63.3 fl High 35.1-43.9 [facility] Glomerular filtration rate ( GFR) estimation/1.73 sq m using serum, plasma, or whole bOrdered By: Tani Gradnaok on 02-09-2025 GFR/1.73 sq M.predicted among non-blacks MDRD (S/P/Bld) [Vol rate/Area] 51 mL/min/{1.73_m2} Low >60 [facility] Comment on above: mL/min/1.73m2 CKD-EP I Creatinine Equation (2020) Hematocrit Auto (Bld) [Volum e fraction]Ordered By: Tani Grey on 02-09-2025 Hematocrit (Bld) [Volume fraction] 40.9 % 37-47 [facility] Hemoglobin measurementOrdere d By: Tani Grey on 02-09-2025 Hemoglobin (Bld) [Mass/Vol] 13.6 g/dL 12.0-15.0 [facility] Immature granulocytes/100 WB C Auto (Bld)Ordered By: Tani Grey 02-09-2025 Immature granulocytes/100 WBC (Bld) 0.200 % 0.0-0.9 [facility] Comment on above: IG% - Immature Granu locytes (promyelocytes, myelocytes and metamyelocytes) > 1% indicates that a LEFT SHIFT is Present. Laboratory - Chemistry and C hemistry - challengeOrdered By: Tani Grey on 02-09-2025 AST [Catalytic activity/Vol] 21 U/L <32 [facility] Laboratory - Hematology and Cell countsOrdered By: Tani Grey on 02-09-2025 Anisocytosis Ql (Bld) 1+ [facility] MCV (mean corpuscular volume ) determinationOrdered By: Tani Grey on 02-09-2025 MCV (RBC) [Entitic vol] 83.1 fL 81-99 [facility] Mean corpuscular hemoglobin (MCH) determinationOrdered By: Tani Grey on 02-09-2025 MCH (RBC) [Entitic mass] 27.6 pg 27.0-32.0 [facility] Mean corpuscular hemoglobin concentration (MCHC) determinationOrdered By: Tani Grey on 02-09-2025 MCHC (RBC) [Mass/Vol] 33.3 g/dL 32-36 [facility] Mean platelet volume determi nationOrdered By: Tani Grey on 02-09-2025 Platelet mean volume (Bld) [Entitic vol] 10.1 fL 6.2-12.0 [facility] Monocyte percentageOrdered B y: Tani Grey on 02-09-2025 Monocytes/100 WBC (Bld) 7.8 % 0-10 [facility] Neutrophil percentageOrdered By: Tani Grey on 02-09-2025 Neutrophils/100 WBC (Bld) 67.0 % 47-70 [facility] Nucleated red blood cell per centageOrdered By: Tani Grey on 02-09-2025 Nucleated RBC/100 WBC (Bld) [Ratio] 0 % 0-5 [facility] Platelet countOrdered By: Carroll Grey on 02-09-2025 Platelets (Bld) [#/Vol] 150 10*3/uL 150-450 [facility] Platelet estimateOrdered By: Tani Grey on 02-09-2025 Platelets LM Ql (Bld) ADEQUATE ADEQ [facility] Potassium measurement (mass/ volume)Ordered By: Tani Gery on 02-09-2025 Potassium (Unsp spec) [Mass/Vol] 4.4 mmol/L 3.3-5.1 [facility] RBC Auto (Bld) [#/Vol]Ordere d By: Tani Grey on 02-09-2025 RBC (Bld) [#/Vol] 4.92 10*6/uL 4.2-5.4 [facility] Serum creatinine measurement (mass/volume)Ordered By: Tani Grey on 02-09-2025 Creatinine [Mass/Vol] 1.16 mg/dL 0.70-1.20 [facility] Serum globulin measurementOr dered By: Tani Grey on 02-09-2025 Globulin (S) [Mass/Vol] 2.4 g/dL 2.2-4.2 [facility] Serum glucose measurement (m ass/volume)Ordered By: Tani Grey 02-09-2025 Glucose [Mass/Vol] 91 mg/dL 70-99 [facility] Serum or plasma alanine jones otransferase (ALT) measurementOrdered By: Tani Grey 02-09-2025 ALT [Catalytic activity/Vol] 15 U/L <35 [facility] Serum or plasma albumin jose antonio urement (mass/volume)Ordered By: Tani Grey 02-09-2025 Albumin [Mass/Vol] 4.1 g/dL 3.4-4.8 [facility] Serum or plasma albumin/glob ulin mass ratioOrdered By: Tani Grey 02-09-2025 Albumin/Globulin [Mass ratio] 1.7 {ratio} 0.9-2.4 [facility] Serum or plasma alkaline ju sphatase measurementOrdered By: Tani Grey 02-09-2025 ALP [Catalytic activity/Vol] 57 U/L 35-104 [facility] Serum or plasma calcium jose antonio urement (mass/volume)Ordered By: Tani Grey 02-09-2025 Calcium [Mass/Vol] 9.5 mg/dL 7.6-11.0 [facility] Serum or plasma urea nitroge n measurement (mass/volume)Ordered By: Tani Grey 02-09-2025 Urea nitrogen [Mass/Vol] 16 mg/dL 4-19 [facility] Sodium levelOrdered By: Tani Grey 02-09-2025 Sodium [Moles/Vol] 141 mmol/L 133-145 [facility] TSH DL <= 0.005 mIU/L QnOrde red By: Tani Grey on 02-09-2025 TSH Qn 5.050 uIU/mL High 0.300-4.200 [facility] Thyroid Stim Hormone (TSH)on 02-09-2025 TSH 5.050 uIU/mL High 0.300-4.200 [facility] Comment on above: Performed By: #### L 100.0500 #### [facility] [address] [place], [place], [phone] Total proteinOrdered By: Tani Grey on 02-09-2025 Protein [Mass/Vol] 6.5 g/dL 5.9-8.4 [facility] Vitamin D,25 Hydroxyon 02-09 Vitamin D 25-OH 55.6 ng/mL Normal 30-100 [facility] Comment on above: Result Comment: Marlena min D Status Deficiency: <20 ng/mL (50nmol/L) Insufficiency: 20-30 ng/mL (50-75 nmol/L) Sufficiency: 30-100 ng/mL (75-250 nmol/L) Toxicity: >100 ng/mL (>250 nmol/L) Performed By: #### L 100.0500 #### [facility] [address] [place], [place], [phone] White blood cell (WBC) count Ordered By: Tani Grey on 02-09-2025 WBC (Bld) [#/Vol] 5.3 10*3/uL 4.4-11.0 [facility] Absolute lymphocyte countOrd ered By: Tani Grey on 01-09-2025 Lymphocytes Auto (Unsp spec) [#/Vol] 1.22 10*3/uL 0.83-4.51 [facility] Absolute neutrophil countOrd ered By: Tani Que on 01-09-2025 Neutrophils (Bld) [#/Vol] 5.3 10*3/uL 2.0-7.7 [facility] Anion gap in Serum or Plasma Ordered By: Tani Grey on 01-09-2025 Anion gap [Moles/Vol] 11 mmol/L 5-15 [facility] Automated lymphocyte count a s percentage of total leukocytesOrdered By: Tani Grey on 01-09-2025 Lymphocytes/100 WBC Auto (Unsp spec) 17.4 % Low 19-41 [facility] BUN/creatinine ratioOrdered By: Tani Grey on 01-09-2025 Urea nitrogen/Creatinine [Mass ratio] 13.1 mg/mg 10-20 [facility] Basophil percentageOrdered B y: Tani Grey on 01-09-2025 Basophils/100 WBC (Bld) 0.1 % 0-1 [facility] Bilirubin, totalOrdered By: Tani Grey on 01-09-2025 Bilirubin [Mass/Vol] 0.45 mg/dL 0.00-1.30 [facility] Brain/Head without Contrasto n 01-09-2025 Brain/Head without Contrast [facility] Imaging Services [address] [place] [address] Brain/Head without Contrast MR#: [id number] Acct: [id number] Name: MATY HIGH Rep #: [id number] : 1955 F 69 From: Dae malloy MD PCP: Dr. Tani Grey MD Status: REG CLI Study: Brain/Head without Contrast Date of Exam: 12/23 05/18 Exam# [id number] Ordering Dr: Tani Grey MD ADDENDUM by Dr. Dae Love MD on 01/12/25 at 1125 Addendum report. Mild degree of cerebral atrophy. No acute abnormality is seen. Reading [facility] 01/12/25 1126 Date cc: Dr. Tani Grey MD * Signed PROCEDURE: BRAIN/HEAD WITHOUT CONTRAST 01/09/2025 REASON FOR EXAM: MIGRAINE TECHNIQUE: Head CT without intravenous contrast. Coronal and Sagittal reconstruction series were provided. One or more dose reduction techniques were used (e.g., Automated exposure control, adjustment of the mA and/or kV according to patient size, use of iterative reconstruction technique. RADIATION DOSE SUMMARY: CTDlvol: 44.99 mGy DLP: 762.36 mGycm FINDINGS: Brain: CSF Spaces: Sinuses/Mastoids: Bones: Reading Location: [facility] CC: Dr. Tani Grey MD Data Compiler: Signed Normal [facility] CBC W/Diff, Automatedon - Anisocytosis Ql (Bld) 1+ Normal [facility] Comment on above: Performed By: #### L 509.1000 #### [facility] Laboratory [address] [place], [address] OVALOCYTE 1+ Normal [facility] Comment on above: Performed By: #### L 509.1000 #### [facility] Laboratory [address] [place], [address] PLT EST A Normal ADEQ [facility] Comment on above: Performed By: #### L 509.1000 #### [facility] Laboratory [address] [place], [address] CRPon 01-09-2025 C-REACTIVE PROT 86.60 mg/L High 0.0-3.0 [facility] Comment on above: Performed By: #### L 509.1000 #### [facility] Laboratory [address] [place], [address] Carbon dioxide, total [Moles /volume] in Central venous bloodOrdered By: Tani Grey on 01-09-2025 CO2 [Moles/Vol] 23.9 mmol/L 21.0-32.0 [facility] Cerv Spine 2 or 3 Viewson Cerv Spine 2 or 3 Views [facility] Imaging Services [address] [place] [address] Cerv Spine 2 or 3 Views MR#: [id number] Acct: [id number] Name: MATY HIGH Rep #: [id number] : 1955 F 69 From: Rodger Pereira DO PCP: Dr. Tani Grey MD Status: REG CLI Study: Cerv Spine 2 or 3 Views Date of Exam: 01/09/25 Exam# [id number] Ordering Dr: Tani Grey MD PROCEDURE: CERV SPINE 2 OR 3 VIEWS 01/09/2025 REASON FOR EXAM: CERVICAL DISC DISEASE TECHNIQUE: 3 views of the cervical spine. COMPARISON: None FINDINGS: On the lateral view, the cervical spine is evaluated to C7. Mild reversal of the normal lordotic curvature of the upper cervical spine, which could be positional versus muscle spasm. There is mild retrolisthesis of C3 on C4 and C4 on C5. Anterior fusion hardware seen at the C5-6 level. Negative for hardware failure. Crir-cv-jzecvpfy multilevel degenerative disc and endplate changes most conspicuous at the C3-4 and C4-5 levels. No acute cervical spine fractures or dislocations are identified. The dens is intact. No prevertebral soft tissue swelling is seen. Vascular calcifications within the right carotid bifurcation. Visualized lung apices are clear. Patient is edentulous. RAD/Cerv Spine 2 or 3 Views IMPRESSION: 1. No acute fractures or dislocations are identified. 2. Mild reversal of the normal lordotic curvature of the upper cervical spine, which could be positional versus muscle spasm. 3. Anterior fusion hardware seen at the C5-6 level. Negative for hardware failure. 4. Rgqz-gd-bcozsiac multilevel degenerative disc and endplate changes most conspicuous at the C3-4 and C4-5 levels. Disclaimer: Reading Location: [facility] CC: Dr. Tani Grey MD Data Compiler: Signed Normal [facility] Chloride assayOrdered By: Carroll Grey on 01-09-2025 Chloride [Moles/Vol] 100 mmol/L 98-108 [facility] Comprehensive Metabolic Prof ilon 01-09-2025 Albumin [Mass/Vol] 4.0 g/dL Normal 3.4-4.8 [facility] Comment on above: Performed By: #### L 509.1000 #### [facility] Laboratory [address] [place], [address] Albumin/Globulin [Mass ratio] 1.5 {ratio} Normal 0.9-2.4 [facility] Comment on above: Performed By: #### L 509.1000 #### [facility] Laboratory [address] [place], [address] ALK PHOS 67 U/L Normal 35-104 [facility] Comment on above: Performed By: #### L 509.1000 #### [facility] Laboratory [address] [place], [address] ALT [Catalytic activity/Vol] 9 U/L Normal <=34 [facility] Comment on above: Performed By: #### L 509.1000 #### [facility] Laboratory [address] [place], [address] AST [Catalytic activity/Vol] 16 U/L Normal <=31 [facility] Comment on above: Performed By: #### L 509.1000 #### [facility] Laboratory [address] [place], [address] Bilirubin [Mass/Vol] 0.45 mg/dL Normal 0.00-1.30 [facility] Comment on above: Performed By: #### L 509.1000 #### [facility] Laboratory [address] [place], [address] BUN/CRE 13.1 RATIO Normal 10-20 [facility] Comment on above: Performed By: #### L 509.1000 #### [facility] Laboratory [address] [place], [address] Calcium [Mass/Vol] 9.4 mg/dL Normal 7.6-11.0 [facility] Comment on above: Performed By: #### L 509.1000 #### [facility] Laboratory [address] [place], [address] Chloride [Moles/Vol] 100 mmol/L Normal 98-108 [facility] Comment on above: Performed By: #### L 509.1000 #### [facility] Laboratory [address] [place], [address] CO2 [Moles/Vol] 23.9 mmol/L Normal 21.0-32.0 [facility] Comment on above: Performed By: #### L 509.1000 #### [facility] Laboratory [address] [place], [address] Creatinine [Mass/Vol] 1.02 mg/dL Normal 0.70-1.20 [facility] Comment on above: Performed By: #### L 509.1000 #### [facility] Laboratory [address] [place], [address] GAP 11 Normal 5-15 [facility] Comment on above: Performed By: #### L 509.1000 #### [facility] Laboratory [address] [place], [address] GFR/1.73 sq M.predicted among non-blacks MDRD (S/P/Bld) [Vol rate/Area] 60 mL/min/{1.73_m2} Normal >60 [facility] Comment on above: Result Comment: mL/m in/1.73m2 CKD-EPI Creatinine Equation (2020) Performed By: #### L 509.1000 #### [facility] Laboratory [address] [place], [address] Globulin (S) [Mass/Vol] 2.8 g/dL Normal 2.2-4.2 [facility] Comment on above: Performed By: #### L 509.1000 #### [facility] Laboratory [address] [place], [address] Glucose [Mass/Vol] 99 mg/dL Normal 70-99 [facility] Comment on above: Performed By: #### L 509.1000 #### [facility] Laboratory [address] [place], [address] Potassium [Moles/Vol] 3.9 mmol/L Normal 3.3-5.1 [facility] Comment on above: Performed By: #### L 509.1000 #### [facility] Laboratory [address] [place], [place], [address] Sodium [Moles/Vol] 134 mmol/L Normal 133-145 [facility] Comment on above: Performed By: #### L 509.1000 #### [facility] Laboratory [address] [place], [place], [id number] T PROT 6.8 g/dL Normal 5.9-8.4 [facility] Comment on above: Performed By: #### L 509.1000 #### [facility] Laboratory [address] [place], [place], [id number] Urea nitrogen [Mass/Vol] 13 mg/dL Normal 4-19 [facility] Comment on above: Performed By: #### L 509.1000 #### [facility] Laboratory [address] [place], [place], [address] Eosinophil percentageOrdered By: Tani Grey on 01-09-2025 Eosinophils/100 WBC (Bld) 0.7 % 0-5 [facility] Erythrocyte Sed Rateon 01-09 SED RATE 18 mm/hr Normal 0-30 [facility] Comment on above: Performed By: #### L 509.1000 #### [facility] Laboratory [address] [place], [place], [address] Erythrocyte distribution wid th ratioOrdered By: Tani Grey on 01-09-2025 Erythrocyte distribution width (RBC) [Ratio] 23.6 % High 11.6-14.6 [facility] Erythrocyte distribution wid th standard deviationOrdered By: Tani Grey on 01-09-2025 Erythrocyte distribution width (RBC) [Ratio] 62.5 fl High 35.1-43.9 [facility] Erythrocyte sedimentation ra teOrdered By: Tani Grey on 01-09-2025 ESR (Bld) [Velocity] 18 mm/h 0-30 [facility] Glomerular filtration rate ( GFR) estimation/1.73 sq m using serum, plasma, or whole bOrdered By: Tani Grey on 01-09-2025 GFR/1.73 sq M.predicted among non-blacks MDRD (S/P/Bld) [Vol rate/Area] 60 mL/min/{1.73_m2} >60 [facility] Comment on above: mL/min/1.73m2 CKD-EP I Creatinine Equation (2020) Hematocrit Auto (Bld) [Volum e fraction]Ordered By: Tani Grey on 01-09-2025 Hematocrit (Bld) [Volume fraction] 40.5 % 37-47 [facility] Hemoglobin measurementOrdere d By: Tani Grey on 01-09-2025 Hemoglobin (Bld) [Mass/Vol] 13.4 g/dL 12.0-15.0 [facility] Immature granulocytes/100 WB C Auto (Bld)Ordered By: Tani Grey on 01-09-2025 Immature granulocytes/100 WBC (Bld) 0.100 % 0.0-0.9 [facility] Comment on above: IG% - Immature Granu locytes (promyelocytes, myelocytes and metamyelocytes) > 1% indicates that a LEFT SHIFT is Present. Influenza virus A and B and SARS-CoV-2 (COVID-19) and Respiratory syncytial virus RNAOrdered By: Tani Grey on 01-09-2025 SARS-CoV-2 (COVID-19) RNA MANUEL+probe Ql (Unsp spec) [facility] Laboratory - Chemistry and C hemistry - challengeOrdered By: Tani Grey 01-09-2025 AST [Catalytic activity/Vol] 16 U/L <32 [facility] Laboratory - Hematology and Cell countsOrdered By: Tani Grey on 01-09-2025 Anisocytosis Ql (Bld) 1+ [facility] M100.678on 01-09-2025 M100.678 Pending SARS-CoV-2 (COVID 19) Negative INFLUENZA A Negative INFLUENZA B Negative RSV PCR Negative Normal [facility] Comment on above: Performed By: #### L 500.405 #### [facility] Laboratory [address] [place], [address] MCV (mean corpuscular volume ) determinationOrdered By: Tani Grey on 01-09-2025 MCV (RBC) [Entitic vol] 78.3 fL Low 81-99 [facility] Mean corpuscular hemoglobin (MCH) determinationOrdered By: Tani Grey on 01-09-2025 MCH (RBC) [Entitic mass] 25.9 pg Low 27.0-32.0 [facility] Mean corpuscular hemoglobin concentration (MCHC) determinationOrdered By: Tani Grey on 01-09-2025 MCHC (RBC) [Mass/Vol] 33.1 g/dL 32-36 [facility] Mean platelet volume determi nationOrdered By: Tani Grey on 01-09-2025 Mean platelet volume determination TNP [facility] Comment on above: Test not performed Monocyte percentageOrdered B y: Tani Grey on 01-09-2025 Monocytes/100 WBC (Bld) 6.8 % 0-10 [facility] Neutrophil percentageOrdered By: Tani Grey on 01-09-2025 Neutrophils/100 WBC (Bld) 74.9 % High 47-70 [facility] Nucleated red blood cell per centageOrdered By: Tani Grey on 01-09-2025 Nucleated RBC/100 WBC (Bld) [Ratio] 0 % 0-5 [facility] Ovalocyte detectionOrdered B y: Tani Grey on 01-09-2025 Ovalocytes LM Ql (Bld) 1+ [facility] Platelet countOrdered By: Carroll Grey on 01-09-2025 Platelets (Bld) [#/Vol] 168 10*3/uL 150-450 [facility] Platelet estimateOrdered By: Tani Grey on 01-09-2025 Platelets LM Ql (Bld) A ADEQ [facility] Potassium measurement (mass/ volume)Ordered By: Tani Grey on 01-09-2025 Potassium (Unsp spec) [Mass/Vol] 3.9 mmol/L 3.3-5.1 [facility] RBC Auto (Bld) [#/Vol]Ordere d By: Tnai Grey on 01-09-2025 RBC (Bld) [#/Vol] 5.17 10*6/uL 4.2-5.4 [facility] Serum creatinine measurement (mass/volume)Ordered By: Tani Grey on 01-09-2025 Creatinine [Mass/Vol] 1.02 mg/dL 0.70-1.20 [facility] Serum globulin measurementOr dered By: Tani Grey 01-09-2025 Globulin (S) [Mass/Vol] 2.8 g/dL 2.2-4.2 [facility] Serum glucose measurement (m ass/volume)Ordered By: Tani Grey 01-09-2025 Glucose [Mass/Vol] 99 mg/dL 70-99 [facility] Serum or plasma C reactive p rotein measurement (mass/volume)Ordered By: Tani Grey 01-09-2025 CRP [Mass/Vol] 86.60 mg/L High 0.0-3.0 [facility] Serum or plasma alanine jones otransferase (ALT) measurementOrdered By: Tani Grey 01-09-2025 ALT [Catalytic activity/Vol] 9 U/L <35 [facility] Serum or plasma albumin jose antonio urement (mass/volume)Ordered By: Tani Grey 01-09-2025 Albumin [Mass/Vol] 4.0 g/dL 3.4-4.8 [facility] Serum or plasma albumin/glob ulin mass ratioOrdered By: Tani Grey 01-09-2025 Albumin/Globulin [Mass ratio] 1.5 {ratio} 0.9-2.4 [facility] Serum or plasma alkaline ju sphatase measurementOrdered By: Tani Grey 01-09-2025 ALP [Catalytic activity/Vol] 67 U/L 35-104 [facility] Serum or plasma calcium jose antonio urement (mass/volume)Ordered By: Tani Grey 01-09-2025 Calcium [Mass/Vol] 9.4 mg/dL 7.6-11.0 [facility] Serum or plasma urea nitroge n measurement (mass/volume)Ordered By: Tani Grey 01-09-2025 Urea nitrogen [Mass/Vol] 13 mg/dL 4-19 [facility] Sodium levelOrdered By: Tani Grey 01-09-2025 Sodium [Moles/Vol] 134 mmol/L 133-145 [facility] Total proteinOrdered By: Tani Grey 01-09-2025 Protein [Mass/Vol] 6.8 g/dL 5.9-8.4 [facility] White blood cell (WBC) count Ordered By: Tani Grey on 01-09-2025 WBC (Bld) [#/Vol] 7.0 10*3/uL 4.4-11.0 [facility] Emergency Department Summary on 01-08-2025 Emergency Department Summary [facility] Medical Records Department [address] [place] [address] Emergency Department Summary 01/08/25 MR#: [id number] Acct: [id number] Name: MATY HIGH Rep #: [id number] : 1955 69 From: Wilfird Henriquez PCP: Dr. Tani Grey MD Status:DEP ER Location: ED HPI History of Present Illness Chief Complaint: Headache Informant: patient and spouse/S.O. Narrative Narrative: Nontraumatic headache 3 days. Pain started bilateral trapezius up her neck around her head. No trauma. No arm weakness or paresthesias. History of ACDF years ago. Allergies to penicillin. Has not tried any medications. Symptoms worse with head movement. No nausea or vomiting. [facility] Medical History Right groin mass History of GI bleed Wears hearing aid Wears glasses Cancer Easy bruising History of ulceration Chronic constipation Gastric reflux Shortness of breath on exertion Emphysema, unspecified COPD (chronic obstructive pulmonary disease) History of pain when walking History of edema Hyperparathyroidism Abnormal ultrasound of breast Breast pain, right Encounter for screening for malignant neoplasm of lung Tobacco use disorder, continuous Encounter for screening for malignant neoplasm of lung in current smoker with 30 pack year history or greater Sciatic leg pain Wears dentures Post-menopausal Depression Anemia High cholesterol Back pain Chronic cough Hypertension Iron deficiency anemia due to chronic blood loss Osteopenia Invasive ductal carcinoma of right breast SOB (shortness of breath) Arthritis GERD (gastroesophageal reflux disease) Smoking greater than 30 pack years Emphysema lung Bronchitis Asthma Home Medications ???Medication ???Instructions ???Recorded ???Last Taken ???Type albuterol sulfate 90 mcg/actuation 2 puff inhalation Q4H PRN 07/04/21 Rx aerosol inhaler shortness of breath or wheezing #1 device pravastatin 40 mg tablet 40 mg PO QHS 05/14/23 07/11/24 His tory budesonide 160 mcg-glycopyr 9 2 inh inhalation BID 12/06/2306/24 History mcg-formot 4.8 mcg/actuation HFA inhaler (Breztri Aerosphere) polysaccharide iron complex 150 mg 150 mg PO QDAY 02/07/24 07/11/24 History iron capsule potassium chloride 20 mEq 20 meq PO QDAY 02/07/24 07/11/24 H istory tablet,extended release amlodipine 5 mg tablet 10 mg PO DAILY 03/19/24 07/11/24 H istory bupropion HCl (smoking deter) 150 150 mg PO BID 04/29/24 07/11/24 H istory mg tablet,12 hr sustained-release(smoking deterrent) acetaminophen 500 mg tablet 500 mg PO Q6H PRN PRN Pain Score 0 05/13/24 Unknown Rx 1-10 #0 tabs cholecalciferol (vitamin D3) 125 125 mcg PO DAILY #30 caps 05/13/24 07/11/24 Rx mcg (5,000 unit) capsule dicyclomine 10 mg capsule 10 mg PO BID #30 caps 08/29/24 Unk nown Rx baclofen 10 mg tablet 10 mg PO TID PRN abdominal pain 12/15/24 History omeprazole 40 mg capsule,delayed 40 mg PO DAILY 12/03/24 Unknown Hi story release sucralfate 1 gram tablet 1 g PO TID 12/03/24 Unknown Histor y venlafaxine 150 mg 150 mg PO DAILY 12/03/24 Unknown H istory capsule,extended release 24 hr vonoprazan 20 mg tablet (Voquezna) 20 mg PO DAILY PRN belly pain Unknown History anastrozole 1 mg tablet 1 mg PO DAILY #90 tabs 12/22/24 Un known Rx diazepam 5 mg tablet 5 mg PO Q8 PRN Muscle Spasm #10 Unknown Rx tabs Allergy/AdvReac Type Severity Reaction Status Date / Time latex AdvReac Intermediate rash Verified 01/08/25 17:13 Penicillins AdvReac Intermediate Rash Verified 01/08/25 17:13 Family History Mother Diabetes Hypertension Gastric ulcer Hyperlipidemia CVA (cerebral vascular accident) Father Diabetes COPD (chronic obstructive pulmonary disease) Hypertension Prostate cancer Aunt Breast cancer Surgical History H/O parathyroidectomy S/P parathyroidectomy S/P lumpectomy, right breast Hx of colonoscopy Hx of fusion of cervical spine Status post right breast lumpectomy History of tonsillectomy and adenoidectomy Hx of colonoscopy ( 2019) H/O tubal ligation Social History Smoking Status: Current every day smoker tobacco type: cigarettes Tobacco: How many years used: 45 how long ago did patient quit smoking: down to only smoking 4 cigarettes/day second hand exposure: Yes quit status: considering quitting alcohol intake: current alcohol intake frequency: holidays/special occasions only substance use type: marijuana caffeine: Yes what type of physical activity do you participate in: none frequency: does not exercise laine (more content not included)... Normal [facility] Gastroenterology Visit Repor ton 12-30-2024 Gastroenterology Visit Report [facility] Gastroenterology [address] [place] [address] OFFICE VISIT Date of Service: 12/30/24 MR#: [id number] Acct: [id number] Name: MATY HIGH Rep #: [id number] : 1955 Provider: DANIEL Garcia Age/Sex: 69/F [place] [facility] [place]: Signed Intake Vital Signs 12/24/24 13:49 Height 5 ft 2 in Intake Visit Reasons: Test Result Chief Complaint: anemia Allergies latex Adverse Reaction (Intermediate, Verified 12/22/24 10:31) rash Penicillins Adverse Reaction (Intermediate, Verified 12/22/24 10:31) Rash Medications ???Medication ???Instructions ???Recorded ???Confirmed ???Type albuterol sulfate 90 mcg/actuation 2 puff inhalation Q4H PRN 12/22/24 Rx aerosol inhaler shortness of breath or wheezing #1 device pravastatin 40 mg tablet 40 mg PO QHS 05/14/23 12/22/24 His tory budesonide 160 mcg-glycopyr 9 2 inh inhalation BID 12/06/2311/24 History mcg-formot 4.8 mcg/actuation HFA inhaler (Breztri Aerosphere) polysaccharide iron complex 150 mg 150 mg PO QDAY 02/07/24 12/30/24 History iron capsule potassium chloride 20 mEq 20 meq PO QDAY 02/07/24 12/22/24 H istory tablet,extended release amlodipine 5 mg tablet 10 mg PO DAILY 03/19/24 12/30/24 H istory bupropion HCl (smoking deter) 150 150 mg PO BID 04/29/24 12/30/24 H istory mg tablet,12 hr sustained-release(smoking deterrent) acetaminophen 500 mg tablet 500 mg PO Q6H PRN PRN Pain Score 0 05/13/24 12/22/24 Rx 1-10 #0 tabs cholecalciferol (vitamin D3) 125 125 mcg PO DAILY #30 caps 05/13/24 12/30/24 Rx mcg (5,000 unit) capsule dicyclomine 10 mg capsule 10 mg PO BID #30 caps 08/29/2405/18 Rx baclofen 10 mg tablet 10 mg PO TID PRN abdominal pain 12/30/24 History omeprazole 40 mg capsule,delayed 40 mg PO DAILY 12/03/24 12/30/24 H istory release sucralfate 1 gram tablet 1 g PO TID 12/03/24 12/30/24 Histo ry venlafaxine 150 mg 150 mg PO DAILY 12/03/24 12/22/24 History capsule,extended release 24 hr vonoprazan 20 mg tablet (Voquezna) 20 mg PO DAILY PRN belly pain 12/30/24 History anastrozole 1 mg tablet 1 mg PO DAILY #90 tabs 12/22/24 Rx Patient : No Have you fallen in the past year?: No Nurse's Note: OV 12.30.24 Pt here for f/u and reports extreme fatigue, vomiting, and abdominal pain. Pt reports voquezna is working well. Reports taking sucralfate, dicyclomine, and omeprazole daily. [facility] Medical History Right groin mass History of GI bleed Wears hearing aid Wears glasses Cancer Easy bruising History of ulceration Chronic constipation Gastric reflux Shortness of breath on exertion Emphysema, unspecified COPD (chronic obstructive pulmonary disease) History of pain when walking History of edema Hyperparathyroidism Abnormal ultrasound of breast Breast pain, right Encounter for screening for malignant neoplasm of lung Tobacco use disorder, continuous Encounter for screening for malignant neoplasm of lung in current smoker with 30 pack year history or greater Sciatic leg pain Wears dentures Post-menopausal Depression Anemia High cholesterol Back pain Chronic cough Hypertension Iron deficiency anemia due to chronic blood loss Osteopenia Invasive ductal carcinoma of right breast SOB (shortness of breath) Arthritis GERD (gastroesophageal reflux disease) Smoking greater than 30 pack years Emphysema lung Bronchitis Asthma Surgical History H/O parathyroidectomy S/P parathyroidectomy S/P lumpectomy, right breast Hx of colonoscopy Hx of fusion of cervical spine Status post right breast lumpectomy History of tonsillectomy and adenoidectomy Hx of colonoscopy ( 2019) H/O tubal ligation Family History Mother Diabetes Hypertension Gastric ulcer Hyperlipidemia CVA (cerebral vascular accident) Father Diabetes COPD (chronic obstructive pulmonary disease) Hypertension Prostate cancer Aunt Breast cancer Social History Smoking Status: Current every day smoker tobacco type: cigarettes Tobacco: How many years used: 45 how long ago did patient quit smoking: down to only smoking 4 cigarettes/day second hand exposure: Yes quit status: considering quitting alcohol intake: current alcohol intake frequency: holidays/special occasions only substance use type: marijuana caffeine: Yes what type of physical activity do you participate in: none frequency: does not exercise laine/scientology: None seatbelt use: always do you feel safe at home: Yes additional social history: HPI (more content not included)... Normal [facility] Anion gap in Serum or Plasma Ordered By: Anastacia Diaz on 12-24-2024 Anion gap [Moles/Vol] 10 mmol/L 5-15 [facility] BUN/creatinine ratioOrdered By: Anastacia Diaz on 12-24-2024 Urea nitrogen/Creatinine [Mass ratio] 20.8 mg/mg High 10-20 [facility] Bilirubin, totalOrdered By: Anastacia Diaz on 04-02-2025 Bilirubin [Mass/Vol] 0.20 mg/dL 0.00-1.30 [facility] CBC-Complete Blood Cnt No Di ffon 12-24-2024 MPV TNP Normal 6.2-12.0 [facility] Comment on above: Performed By: #### L 100.0500 #### [facility] Laboratory [address] [place], [address] Erythrocyte distribution width (RBC) [Ratio] 26.6 % High 11.6-14.6 [facility] Comment on above: Performed By: #### L 100.0500 #### [facility] [address] [place], [address] Hematocrit (Bld) [Volume fraction] 36.1 % Low 37-47 [facility] Comment on above: Performed By: #### L 100.0500 #### [facility] [address] [place], [address] Hemoglobin (Bld) [Mass/Vol] 11.2 g/dL Low 12.0-15.0 [facility] Comment on above: Performed By: #### L 100.0500 #### [facility] [address] [place], [address] MCH (RBC) [Entitic mass] 24.1 pg Low 27.0-32.0 [facility] Comment on above: Performed By: #### L 100.0500 #### [facility] [address] [place], [address] MCHC (RBC) [Mass/Vol] 31.0 g/dL Low 32-36 [facility] Comment on above: Performed By: #### L 100.0500 #### [facility] [address] [place], [address] MCV (RBC) [Entitic vol] 77.8 fL Low 81-99 [facility] Comment on above: Performed By: #### L 100.0500 #### [facility] [address] [place], [address] Platelets (Bld) [#/Vol] 203 10*3/uL Normal 150-450 [facility] Comment on above: Performed By: #### L 100.0500 #### [facility] [address] [place], [address] RBC (Bld) [#/Vol] 4.64 10*6/uL Normal 4.2-5.4 [facility] Comment on above: Performed By: #### L 100.0500 #### [facility] [address] [place], [address] RDW SD 69.9 fl High 35.1-43.9 [facility] Comment on above: Performed By: #### L 100.0500 #### [facility] [address] [place], [address] WBC (Bld) [#/Vol] 5.1 10*3/uL Normal 4.4-11.0 [facility] Comment on above: Performed By: #### L 100.0500 #### [facility] [address] [place], [address] Carbon dioxide, total [Moles /volume] in Central venous bloodOrdered By: Anastacia Diaz on 12-24-2024 CO2 [Moles/Vol] 25.2 mmol/L 21.0-32.0 [facility] Chloride assayOrdered By: Michael Diaz on 12-24-2024 Chloride [Moles/Vol] 106 mmol/L 98-108 [facility] Comprehensive Metabolic Prof ilon 12-24-2024 Albumin [Mass/Vol] 4.2 g/dL Normal 3.4-4.8 [facility] Comment on above: Performed By: #### L 500.4050 #### [facility] [address] [place], [address] Albumin/Globulin [Mass ratio] 1.8 {ratio} Normal 0.9-2.4 [facility] Comment on above: Performed By: #### L 500.4050 #### [facility] [address] [place], [address] ALK PHOS 59 U/L Normal 35-104 [facility] Comment on above: Performed By: #### L 500.4050 #### [facility] [address] [place], [address] ALT [Catalytic activity/Vol] 21 U/L Normal <=34 [facility] Comment on above: Performed By: #### L 500.4050 #### [facility] [address] [place], [address] AST [Catalytic activity/Vol] 25 U/L Normal <=31 [facility] Comment on above: Performed By: #### L 500.4050 #### [facility] [address] [place], [address] Bilirubin [Mass/Vol] 0.20 mg/dL Normal 0.00-1.30 [facility] Comment on above: Performed By: #### L 500.4050 #### [facility] [address] [place], [address] BUN/CRE 20.8 RATIO High 10-20 [facility] Comment on above: Performed By: #### L 500.4050 #### [facility] [address] [place], [address] Calcium [Mass/Vol] 9.2 mg/dL Normal 7.6-11.0 [facility] Comment on above: Performed By: #### L 500.4050 #### [facility] [address] [place], [address] Chloride [Moles/Vol] 106 mmol/L Normal 98-108 [facility] Comment on above: Performed By: #### L 500.4050 #### [facility] [address] [place], [address] CO2 [Moles/Vol] 25.2 mmol/L Normal 21.0-32.0 [facility] Comment on above: Performed By: #### L 500.4050 #### [facility] [address] [place], [address] Creatinine [Mass/Vol] 1.08 mg/dL Normal 0.70-1.20 [facility] Comment on above: Performed By: #### L 500.4050 #### [facility] [address] [place], [address] ECRCL 43.38 ml/min Low 50-250 [facility] Comment on above: Performed By: #### L 500.4050 #### [facility] [address] [place], [address] GAP 10 Normal 5-15 [facility] Comment on above: Performed By: #### L 500.4050 #### [facility] [address] [place], [address] GFR/1.73 sq M.predicted among non-blacks MDRD (S/P/Bld) [Vol rate/Area] 56 mL/min/{1.73_m2} Low >60 [facility] Comment on above: Result Comment: mL/m in/1.73m2 CKD-EPI Creatinine Equation (2020) Performed By: #### L 500.4050 #### [facility] [address] [place], [address] Globulin (S) [Mass/Vol] 2.3 g/dL Normal 2.2-4.2 [facility] Comment on above: Performed By: #### L 500.4050 #### [facility] [address] [place], [address] Glucose [Mass/Vol] 112 mg/dL High 70-99 [facility] Comment on above: Performed By: #### L 500.4050 #### [facility] [address] [place], [address] Potassium [Moles/Vol] 4.3 mmol/L Normal 3.3-5.1 [facility] Comment on above: Performed By: #### L 500.4050 #### [facility] [address] [place], [address] Sodium [Moles/Vol] 141 mmol/L Normal 133-145 [facility] Comment on above: Performed By: #### L 500.4050 #### [facility] [address] [place], [address] T PROT 6.4 g/dL Normal 5.9-8.4 [facility] Comment on above: Performed By: #### L 500.4050 #### [facility] [address] [place], [address] Urea nitrogen [Mass/Vol] 23 mg/dL High 4-19 [facility] Comment on above: Performed By: #### L 500.4050 #### [facility] [address] [place], [address] Erythrocyte distribution wid th (RBC) [Ratio]Ordered By: Sean Dos Santos on 12-24-2024 Erythrocyte distribution width (RBC) [Entitic vol] 69.9 fL High 35.1-43.9 [facility] Erythrocyte distribution wid th ratioOrdered By: Sean Dos Santos on 12-24-2024 Erythrocyte distribution width (RBC) [Ratio] 26.6 % High 11.6-14.6 [facility] Erythrocyte distribution wid th standard deviationOrdered By: Sean Dos Santos on 12-24-2024 Erythrocyte distribution width (RBC) [Ratio] 69.9 fl High 35.1-43.9 [facility] Estimation of creatinine timothy aranceOrdered By: Anastacia Diaz on 12-24-2024 Estimated Creatinine Clearance Calc 43.38 ml/min Low 50-250 [facility] GFR/1.73 sq M.predicted mya g non-blacks MDRD (S/P/Bld) [Vol rate/Area]Ordered By: Anastacia Diaz on 12-24-2024 Estimated GFR (MDRD) Non-Af Amer 56 Low >60 [facility] Comment on above: mL/min/1.73m2 CKD-EP I Creatinine Equation (2020) Glomerular filtration rate ( GFR) estimation/1.73 sq m using serum, plasma, or whole bOrdered By: Anastacia Diaz on 12-24-2024 GFR/1.73 sq M.predicted among non-blacks MDRD (S/P/Bld) [Vol rate/Area] 56 mL/min/{1.73_m2} Low >60 [facility] Comment on above: mL/min/1.73m2 CKD-EP I Creatinine Equation (2020) Hematocrit Auto (Bld) [Volum e fraction]Ordered By: Sean Dos Santos on 12-24-2024 Hematocrit (Bld) [Volume fraction] 36.1 % Low 37-47 [facility] Hemoglobin measurementOrdere d By: Sean Dos Santos on 12-24-2024 Hemoglobin (Bld) [Mass/Vol] 11.2 g/dL Low 12.0-15.0 [facility] Laboratory - Chemistry and C hemistry - challengeOrdered By: Anastacia Diaz on 12-24-2024 AST [Catalytic activity/Vol] 25 U/L <32 [facility] MCV (mean corpuscular volume ) determinationOrdered By: Sean Dos Santos on 12-24-2024 MCV (RBC) [Entitic vol] 77.8 fL Low 81-99 [facility] Mean corpuscular hemoglobin (MCH) determinationOrdered By: Sean Dos Santos on 12-24-2024 MCH (RBC) [Entitic mass] 24.1 pg Low 27.0-32.0 [facility] Mean corpuscular hemoglobin concentration (MCHC) determinationOrdered By: Sean Dos Santos on 12-24-2024 MCHC (RBC) [Mass/Vol] 31.0 g/dL Low 32-36 [facility] Mean platelet volume determi nationOrdered By: Sean Dos Santos on 12-24-2024 Mean Platelet Volume TNP [facility] Comment on above: Test not performed Mean platelet volume determination MNP [facility] Comment on above: Test not performed Oncology Visit Reporton Oncology Visit Report [facility] [place] [facility] [place] [address] OFFICE VISIT Date of Service: 12/24/24 1258 MR#: [id number] Acct: [id number] Name: MATY HIGH Rep #: [id number] : 1955 From: Anastacia Diaz NP [employer] -C Age/Sex: 69/F Location: [facility] [place] Status: Signed HPI Subjective Date of Service 12/24/24 Chief Complaint review US History of Present Illness 69-year-old female who presented after an abnormal screening mammogram. No palpable abnormalities felt by patient or surgery. May 31, 2021 Right breast, core biopsy:Invasive ductal carcinoma with the following characteristics:Nuclear grade ???1/3Maximal length ???10mm ANTIBODY /CLONE [id number] (DO-7) negativeKi-67 (30-9) positiveCK8 (81kigvF31)positiveCK5-6 (D5 1684) negativeCalponin-1 (ZU115V) kwsvqidwT62 (BC 28)negativeE-Cad (ECH-6) positiveCOX-2 (SP21) positiveMORPHOMETRIC ANALYSIS ER (clone 6F11) positive, 95% strong intensity ME (clone 16/1E2) positive, 65% moderate intensityHer-2Neu (clone CB11) negative 0 July 04, 2021 right breast partial mastectomy with sentinel lymph node biopsy: MICROSCOPIC DIAGNOSISA. Right breast mass, lumpectomy with wire localization:Invasive ductal carcinoma.See cancer summary in the comment section.B. Right axillary lymph node dissection:Twelve out of twelve lymph nodes, negative for metastatic carcinoma.NORA:charlette 07/07/2021OMMENTBREAST CANCER SUMMARYProcedure ???lumpectomy with needle localization Specimen laterality ???Invasive tumor:Tumor site ???8 o???clock, 4 cm from the nippleTumor size ???1.2 x 1.1 x 1 cmHistologic type ???invasive ductal carcinoma (not otherwise specified)Histologic grade ([place] grade):Glandular/tubular differentiation score -2Nuclear pleomorphism score -2Mitotic count score -1Overall grade ???grade 1(score of 5)Tumor focality ???single focus of invasive carcinomaDuctal carcinoma in situ ???not identifiedLobular carcinoma in situ -not identifiedTumor extension:Skin ???not presentNipple ???not applicableSkeletal muscle ???no skeletal muscle is present.Margins:Invasive carcinoma margin ???the tumor is 0.4 cm away from the closest posterior margin.Regional lymph nodes:Total number of lymph nodes examined ???12Number of sentinel lymph nodes examined -0Number of lymph nodes with macrometastases, micrometastases or isolated tumor cells -0Treatment effect ???no known presurgical therapy.Lymphvascular invasion ???not identifiedDermal lymphvascular invasion ???not applicableAdditional Pathologic Findings ???intraductal hyperplasia without atypia.Ancillary Studies: Previously performed on same tumor ([id number]/ [id number])ER: positive (>95%, strong intensity)ME: positive (65%, moderate intensity)Xma3ppo: negative (0)Microcalcifications ???not identifiedClinical History -Please make reference to previous specimen ([id number]) right breast, core biopsy with diagnosis of invasive ductal carcinoma.PATHOLOGIC STAGE: [id number] pMx Treatment summary: July 04, 2021 right breast partial mastectomy with sentinel lymph node biopsy. Adjuvant radiation: 08/15/2021 ??? 08/26/2021: received 2850 cGy in 5 fractions to the right partial breast Adjuvant hormonal therapy with Arimidex: August 29, 2021- Adjuvant chemotherapy: Declined no Oncotype DX done. Interval History The patient is presenting to clinic accompanied by significant other to review right groin US requested to address patient reports of right groin mass. Patient states this is the best I've felt in a long time referring to improvement of fatigue. [facility] Medical History Right groin mass History of GI bleed Wears hearing aid Wears glasses Cancer Easy bruising History of ulceration Chronic constipation Gastric reflux Shortness of breath on exertion Emphysema, unspecified COPD (chronic obstructive pulmonary disease) History of pain when walking History of edema Hyperparathyroidism Abnormal ultrasound of breast Breast pain, right Encounter for screening for malignant neoplasm of lung Tobacco use disorder, continuous Encounter for screening for malignant neoplasm of lung in current smoker with 30 pack year history or greater Sciatic leg pain Wears dentures Post-menopausal Depression Anemia High cholesterol Back pain Chronic cough Hypertension Iron deficiency anemia due to chronic blood loss Osteopenia Invasive ductal carcinoma of right breast SOB (shortness of breath) Arthritis GERD (gastroesophageal reflux disease) Smoking greater than 30 pack years Emphysema lung Bronchitis Asthma Surgical History H/O parathyroidectomy S/P parathyroidectomy S/P lumpectomy, right breast Hx of colonoscopy Hx of fusion of cervical spine Status post right breast lumpectomy History of tonsille (more content not included)... Normal [facility] Platelet countOrdered By: St job Dos Santos on 12-24-2024 Platelets (Bld) [#/Vol] 203 10*3/uL 150-450 [facility] Potassium (Unsp spec) [Mass/ Vol]Ordered By: Anastacia Diaz on 12-24-2024 Potassium [Moles/Vol] 4.3 mmol/L 3.3-5.1 [facility] Potassium measurement (mass/ volume)Ordered By: Anastacia Diaz on 12-24-2024 Potassium (Unsp spec) [Mass/Vol] 4.3 mmol/L 3.3-5.1 [facility] RBC Auto (Bld) [#/Vol]Ordere d By: Sean Dos Santos on 12-24-2024 RBC (Bld) [#/Vol] 4.64 10*6/uL 4.2-5.4 [facility] Serum creatinine measurement (mass/volume)Ordered By: Anastacia Diaz on 12-24-2024 Creatinine [Mass/Vol] 1.08 mg/dL 0.70-1.20 [facility] Serum globulin measurementOr dered By: Anastacia Diaz on 12-24-2024 Globulin (S) [Mass/Vol] 2.3 g/dL 2.2-4.2 [facility] Serum glucose measurement (m ass/volume)Ordered By: Anastacia Diaz on 12-24-2024 Glucose [Mass/Vol] 112 mg/dL High 70-99 [facility] Serum or plasma alanine jones otransferase (ALT) measurementOrdered By: Anastacia Diaz on 12-24-2024 ALT [Catalytic activity/Vol] 21 U/L <35 [facility] Serum or plasma albumin jose antonio urement (mass/volume)Ordered By: Anastacia Diaz on 12-24-2024 Albumin [Mass/Vol] 4.2 g/dL 3.4-4.8 [facility] Serum or plasma albumin/glob ulin mass ratioOrdered By: Anastacia Diaz on 12-24-2024 Albumin/Globulin [Mass ratio] 1.8 {ratio} 0.9-2.4 [facility] Serum or plasma alkaline ju sphatase measurementOrdered By: Anastacia Diaz on 12-24-2024 ALP [Catalytic activity/Vol] 59 U/L 35-104 [facility] Serum or plasma calcium jose antonio urement (mass/volume)Ordered By: Anastacia Diaz on 12-24-2024 Calcium [Mass/Vol] 9.2 mg/dL 7.6-11.0 [facility] Serum or plasma urea nitroge n measurement (mass/volume)Ordered By: Anastacia Diaz on 12-24-2024 Urea nitrogen [Mass/Vol] 23 mg/dL High 4-19 [facility] Sodium levelOrdered By: Anastacia Diaz on 12-24-2024 Sodium [Moles/Vol] 141 mmol/L 133-145 [facility] Total proteinOrdered By: James Diaz on 12-24-2024 Protein [Mass/Vol] 6.4 g/dL 5.9-8.4 [facility] White blood cell (WBC) count Ordered By: Sean Dos Santos on 12-24-2024 WBC (Bld) [#/Vol] 5.1 10*3/uL 4.4-11.0 [facility] Ext Non Vasc Limited/Soft Ti sson 12-23-2024 Ext Non Vasc Limited/Soft Tiss [facility] Imaging Services [address] [place] [address] [id number] Ext Non Vasc Limited/Soft Tiss MR#: [id number] Acct: [id number] Name: MATY HGIH Rep #: [id number] : 1955 F 69 From: Dae malloy MD PCP: Dr. Tani Grey MD Status: REG CLI Study: Ext Non Vasc Limited/Soft Tiss Date of Exam: 0 12/23/24 Exam# [id number] Ordering Dr: Anastacia Diaz NP, NP PROCEDURE: EXT NON VASC LIMITED/SOFT TISS 12/23/2024 REASON FOR EXAM: RIGHT GROIN; MASS TECHNIQUE: Ultrasound targeted to the palpable abnormality at the right groin.. COMPARISON: None FINDINGS: The area of the palpable mass in the right groin was examined with ultrasound. No sonographic abnormality is seen. US/Ext Non Vasc Limited/Soft Tiss IMPRESSION: No sonographic abnormality is seen. Reading Location: [place] [address] CC: [employer] Anastacia Diaz; Dr. Tani Grey MD Data Compiler: Signed Normal [facility] Absolute lymphocyte countOrd ered By: Louis Luzma on 12-22-2024 Lymphocytes Auto (Unsp spec) [#/Vol] 1.21 10*3/uL 0.83-4.51 [facility] Absolute neutrophil countOrd ered By: [facility] on 12-22-2024 Neutrophils (Bld) [#/Vol] 2.7 10*3/uL 2.0-7.7 [facility] Automated lymphocyte count a s percentage of total leukocytesOrdered By: Louis Segal on 12-22-2024 Lymphocytes/100 WBC Auto (Unsp spec) 27.7 % 19-41 [facility] Basophil percentageOrdered B y: [facility] on 12-22-2024 Basophils/100 WBC (Bld) 0.7 % 0-1 [facility] CBC W/Diff, Automatedon 11-24 Anisocytosis Ql (Bld) 1+ Normal [facility] Comment on above: Performed By: #### L 500.4050 #### [facility] Laboratory [address] [place], [place], [id number] [phone] Calculated total iron bindin g capacityOrdered By: Anastacia Diaz on 12-22-2024 Total Iron Binding Capacity 372 ug/dL 250-450 [facility] Comprehensive Metabolic Prof ilon 12-22-2024 Albumin [Mass/Vol] 4.1 g/dL Normal 3.4-4.8 [facility] Comment on above: Performed By: #### L 500.4050 #### [facility] Laboratory [address] [place], [address] Albumin/Globulin [Mass ratio] 2.1 {ratio} Normal 0.9-2.4 [facility] Comment on above: Performed By: #### L 500.4050 #### [facility] [address] [place], [address] ALK PHOS 59 U/L Normal 35-104 [facility] Comment on above: Performed By: #### L 500.4050 #### [facility] [address] [place], [address] ALT [Catalytic activity/Vol] 24 U/L Normal <=34 [facility] Comment on above: Performed By: #### L 500.4050 #### [facility] [address] [place], [address] AST [Catalytic activity/Vol] 31 U/L Normal <=31 [facility] Comment on above: Performed By: #### L 500.4050 #### [facility] [address] [place], [address] Bilirubin [Mass/Vol] 0.26 mg/dL Normal 0.00-1.30 [facility] Comment on above: Performed By: #### L 500.4050 #### [facility] [address] [place], [address] BUN/CRE 14.3 RATIO Normal 10-20 [facility] Comment on above: Performed By: #### L 500.4050 #### [facility] [address] [place], [address] Calcium [Mass/Vol] 9.9 mg/dL Normal 7.6-11.0 [facility] Comment on above: Performed By: #### L 500.4050 #### [facility] [address] [place], [address] Chloride [Moles/Vol] 105 mmol/L Normal 98-108 [facility] Comment on above: Performed By: #### L 500.4050 #### [facility] [address] [place], [address] CO2 [Moles/Vol] 21.6 mmol/L Normal 21.0-32.0 [facility] Comment on above: Performed By: #### L 500.4050 #### [facility] [address] [place], [address] Creatinine [Mass/Vol] 1.41 mg/dL High 0.70-1.20 [facility] Comment on above: Performed By: #### L 500.4050 #### [facility] [address] [place], [address] ECRCL 32.69 ml/min Low 50-250 [facility] Comment on above: Performed By: #### L 500.4050 #### [facility] [address] [place], [address] GAP 13 Normal 5-15 [facility] Comment on above: Performed By: #### L 500.4050 #### [facility] [address] [place], [address] GFR/1.73 sq M.predicted among non-blacks MDRD (S/P/Bld) [Vol rate/Area] 40 mL/min/{1.73_m2} Low >60 [facility] Comment on above: Result Comment: mL/m in/1.73m2 CKD-EPI Creatinine Equation (2020) Performed By: #### L 500.4050 #### [facility] [address] [place], [address] Globulin (S) [Mass/Vol] 1.9 g/dL Low 2.2-4.2 [facility] Comment on above: Performed By: #### L 500.4050 #### [facility] [address] [place], [address] Glucose [Mass/Vol] 99 mg/dL Normal 70-99 [facility] Comment on above: Performed By: #### L 500.4050 #### [facility] [address] [place], [address] Potassium [Moles/Vol] 4.9 mmol/L Normal 3.3-5.1 [facility] Comment on above: Performed By: #### L 500.4050 #### [facility] [address] [place], [address] Sodium [Moles/Vol] 139 mmol/L Normal 133-145 [facility] Comment on above: Performed By: #### L 500.4050 #### [facility] [address] [place], [address] T PROT 6.1 g/dL Normal 5.9-8.4 [facility] Comment on above: Performed By: #### L 500.4050 #### [facility] [address] [place], [address] Urea nitrogen [Mass/Vol] 20 mg/dL High 4-19 [facility] Comment on above: Performed By: #### L 500.4050 #### [facility] [address] [place], [address] Eosinophil percentageOrdered By: Louis Segal on 12-22-2024 Eosinophils/100 WBC (Bld) 1.6 % 0-5 [facility] Ferritinon 12-22-2024 Ferritin [Mass/Vol] 269 ng/mL Normal 22-378 [facility] Comment on above: Order Comment: ADD O N TO BW DRAWN THIS AM Performed By: #### L 100.0500 #### [facility] [address] [place], [address] Immature granulocytes/100 WB C Auto (Bld)Ordered By: oLuis Segal on 12-22-2024 Immature granulocytes/100 WBC (Bld) 0.500 % 0.0-0.9 [facility] Comment on above: IG% - Immature Granu locytes (promyelocytes, myelocytes and metamyelocytes) > 1% indicates that a LEFT SHIFT is Present. Iron (Unsp spec) [Mass/Mass] Ordered By: Anastacia Diaz on 12-22-2024 Iron [Mass/Vol] 128 ug/dL 50-170 [facility] Iron measurement (mass/mass) Ordered By: Anastacia Diaz on 12-22-2024 Iron (Unsp spec) [Mass/Mass] 128 ug/dL 50-170 [facility] Iron saturation [Mass fracti on]Ordered By: Anastacia Diaz on 12-22-2024 Iron Saturation 34.4 % 13-59 [facility] Comment on above: Previous reported re sult: 34.0 %Edited by: PHILLIP on 12/22/24:1233 AMENDED REPORT 12/22/24 1233 IRON SATURATION previously reported as: 34.0 % Iron+Iron Binding Capacityon 12-22-2024 Iron [Mass/Vol] 128 ug/dL Normal 50-170 [facility] Comment on above: Order Comment: ADD O N TO BW DRAWN THIS AM Performed By: #### L 100.0500 #### [facility] [address] [place], [address] UIBC 244 ug/dL Normal 228-428 [facility] Comment on above: Order Comment: ADD O N TO BW DRAWN THIS AM Performed By: #### L 100.0500 #### [facility] [address] [place], [address] Laboratory - Hematology and Cell countsOrdered By: Louis Luzma on 12-22-2024 Anisocytosis Ql (Bld) 1+ [facility] Lymphocytes Auto (Unsp spec) [#/Vol]Ordered By: Louis Segal on 12-22-2024 Lymphocytes (Bld) [#/Vol] 1.21 10*3/uL 0.83-4.51 [facility] Lymphocytes/100 WBC Auto (Un sp spec)Ordered By: Louis Winkler on 12-22-2024 Lymphocytes/100 WBC (Bld) 27.7 % 19-41 [facility] Monocyte percentageOrdered B y: [facility] on 12-22-2024 Monocytes/100 WBC (Bld) 8.2 % 0-10 [facility] Neutrophil percentageOrdered By: [facility] on 12-22-2024 Neutrophils/100 WBC (Bld) 61.3 % 47-70 [facility] No Panel InformationOrdered By: Anastacia Diaz on 12-22-2024 Unsaturated Iron Binding Capacity 244 ug/dL 228-428 [facility] Nucleated red blood cell per centageOrdered By: [facility] on 12-22-2024 Nucleated RBC/100 WBC (Bld) [Ratio] 0 % 0-5 [facility] Oncology Visit Reporton 11-24 Oncology Visit Report [facility] [place] [facility] [address] [place] [address] OFFICE VISIT Date of Service: 12/22/24 1018 MR#: [id number] Acct: [id number] Name: MATY HIGH Rep #: [id number] : 1955 From: Anastacia Diaz NP [employer] -C Age/Sex: 69/F Location: [facility] [place] Status: Signed HPI Subjective Date of Service 12/22/24 Chief Complaint H/o breast cancer/New anemia History of Present Illness 69-year-old female who presented after an abnormal screening mammogram. No palpable abnormalities felt by patient or surgery. May 31, 2021 Right breast, core biopsy:Invasive ductal carcinoma with the following characteristics:Nuclear grade ???1/3Maximal length ???10mm ANTIBODY /CLONE [id number] (DO-7) negativeKi-67 (30-9) positiveCK8 (54kuexA15)positiveCK5-6 (D5 1684) negativeCalponin-1 (MA633C) hfamxjcrL98 (BC28)negativeE-Cad (ECH-6) positiveCOX-2 (SP21) positiveMORPHOMETRIC ANALYSIS ER (clone 6F11) positive, 95% strong intensity ME (clone 16/1E2) positive, 65% moderate intensityHer-2Neu (clone CB11) negative 0 July 04, 2021 right breast partial mastectomy with sentinel lymph node biopsy: MICROSCOPIC DIAGNOSISA. Right breast mass, lumpectomy with wire localization:Invasive ductal carcinoma.See cancer summary in the comment section.B. Right axillary lymph node dissection:Twelve out of twelve lymph nodes, negative for metastatic carcinoma.SJ:charlette 07/07/2021OMMENTBREAST CANCER SUMMARYProcedure ???lumpectomy with needle localization Specimen laterality ???Invasive tumor:Tumor site ???8 o???clock, 4 cm from the nippleTumor size ???1.2 x 1.1 x 1 cmHistologic type ???invasive ductal carcinoma (not otherwise specified)Histologic grade ([place] grade):Glandular/tubular differentiation score -2Nuclear pleomorphism score -2Mitotic count score -1Overall grade ???grade 1(score of 5)Tumor focality ???single focus of invasive carcinomaDuctal carcinoma in situ ???not identifiedLobular carcinoma in situ -not identifiedTumor extension:Skin ???not presentNipple ???not applicableSkeletal muscle ???no skeletal muscle is present.Margins:Invasive carcinoma margin ???the tumor is 0.4 cm away from the closest posterior margin.Regional lymph nodes:Total number of lymph nodes examined ???12Number of sentinel lymph nodes examined -0Number of lymph nodes with macrometastases, micrometastases or isolated tumor cells -0Treatment effect ???no known presurgical therapy.Lymphvascular invasion ???not identifiedDermal lymphvascular invasion ???not applicableAdditional Pathologic Findings ???intraductal hyperplasia without atypia.Ancillary Studies: Previously performed on same tumor ([id number]/ [id number])ER: positive (>95%, strong intensity)ME: positive (65%, moderate intensity)Lmu2pwi: negative (0)Microcalcifications ???not identifiedClinical History -Please make reference to previous specimen ([id number]) right breast, core biopsy with diagnosis of invasive ductal carcinoma.PATHOLOGIC STAGE: [id number] pMx Treatment summary: July 04, 2021 right breast partial mastectomy with sentinel lymph node biopsy. Adjuvant radiation: 08/15/2021 ??? 08/26/2021: received 2850 cGy in 5 fractions to the right partial breast Adjuvant hormonal therapy with Arimidex: August 29, 2021- Adjuvant chemotherapy: Declined no Oncotype DX done. Interval History The patient is presenting to clinic for a planned follow up to monitor Hgb. She was given 5 doses of IV Venofer 12/06/23-12/15/24, she was given 1 unit of PRBCs on 12/04/24 to address Hgb of 6.6. Patient denies ever experiencing melena, hematochezia. C/o lower pelvic and abd pain months ago but pain has resolved (following with GI- was instructed by GI to schedule appt with salesperson wigs). Underwent a CT of the abd/pelvis February 2024 which demonstrated stable hepatic and renal cysts and a CTA of the abd/pelvis in October that did not reveal any acute abnormalities. EGD/colonoscopy March 2024 revealed a non-bleeding gastric ulcer with no stigmata of bleeding and erythematous mucosa in the antrum (path showed mild gastritis ), and two 3 to 7 mm polyps in the sigmoid colon and at the hepatic flexure (path showed tubular adenomas), four less than 5 mm polyps in the rectum (path showed hyperplastic polyps). Underwent repeat EGD June 2024 revealed gastric ulcer, H pylori negative. September 30, 2024 she underwent a capsule endoscopy, summary of study reported the presence of one non bleeding dysplastic lesion in the small bowel and benign lacteal. She does not have a follow up with GI at this time. Concerns today include new right groin bump she noticed 1 day ago. Not painful. Fatigue improving. [facility] Medical History Right groin mass History of GI bleed Wears hearing aid Wears glasses Cancer Easy bruising History of ulceration Chronic constipation Gastric reflux (more content not included)... Normal [facility] Serum or plasma ferritin reji surement (mass/volume)Ordered By: Anastacia Diaz on 12-22-2024 Ferritin [Mass/Vol] 269 ng/mL 22-378 [facility] Serum or plasma iron saturat ion measurement (mass fraction)Ordered By: Anastacia Diaz on 12-22-2024 Iron saturation [Mass fraction] 34.4 % 13-59 [facility] Comment on above: Previous reported re sult: 34.0 %Edited by: AUTOINS on 12/22/24:1233 AMENDED REPORT 12/22/24 1233 IRON SATURATION previously reported as: 34.0 % Lower GI hemoglobin IA Ql (S tl)Ordered By: Louis Segal on 12-05-2024 Stool Occult Blood (DORIS) Positive Abnormal [facility] Stool Occult Blood iFOBon STOB Positive Normal [facility] Comment on above: Performed By: #### M 100.7900 ####[facility] [id number] [place], [place], [address] Stool gastrointestinal hemog lobin detection by immunologic methodOrdered By: Louis Segal on 12-05-2024 Lower GI hemoglobin IA Ql (Stl) Positive Abnormal [facility] Absolute neutrophil countOrd ered By: Louis Segal on 12-03-2024 Neutrophils (Bld) [#/Vol] 2.9 10*3/uL 2.0-7.7 [facility] Anion gap in Serum or Plasma Ordered By: Louis Segal on 12-03-2024 Anion gap [Moles/Vol] 9 mmol/L 5-15 [facility] BRCon 12-03-2024 RC Normal [facility] Comment on above: Result Comment: [id number] OP RC TRANSFUSED 12/04/24 0803 Performed By: #### B TS, [facility] ####[facility] [id number] [place], [place], [id number] BUN/creatinine ratioOrdered By: Louis Segal on 12-03-2024 Urea nitrogen/Creatinine [Mass ratio] 20.0 mg/mg 10-20 [facility] Basophil percentageOrdered B y: Louis Segal on 12-03-2024 Basophils/100 WBC (Bld) 0.2 % 0-1 [facility] Bilirubin, totalOrdered By: Louis Segal on 12-03-2024 Bilirubin [Mass/Vol] 0.21 mg/dL 0.00-1.30 [facility] CBC W/Diff, Automatedon 11-22 Anisocytosis Ql (Bld) 1+ Normal [facility] Comment on above: Performed By: #### L 500.4050 #### [facility] [address] [place], [address] HYPOCHROMASIA 1+ Normal [facility] Comment on above: Performed By: #### L 500.4050 #### [facility] [address] [place], [address] OVALOCYTE 1+ Normal [facility] Comment on above: Performed By: #### L 500.4050 #### [facility] [address] [place], [address] Carbon dioxide, total [Moles /volume] in Central venous bloodOrdered By: Louis Seagl on 12-03-2024 CO2 [Moles/Vol] 25.2 mmol/L 21.0-32.0 [facility] Chloride assayOrdered By: Evita Segal on 12-03-2024 Chloride [Moles/Vol] 106 mmol/L 98-108 [facility] Comprehensive Metabolic Prof ilon 12-03-2024 Albumin [Mass/Vol] 4.0 g/dL Normal 3.4-4.8 [facility] Comment on above: Order Comment: DR CHIARA OSORIO ORDERED CMP DR CHAVIRA ORDERED CALCIUM Performed By: #### L 500.4050 #### [facility] [address] [place], [address] Albumin/Globulin [Mass ratio] 1.9 {ratio} Normal 0.9-2.4 [facility] Comment on above: Order Comment: DR CHIARA OSORIO ORDERED CMP DR CHAVIRA ORDERED CALCIUM Performed By: #### L 500.4050 #### [facility] [address] [place], [address] ALK PHOS 62 U/L Normal 35-104 [facility] Comment on above: Order Comment: DR CHIARA OSORIO ORDERED CMP DR CHAVIRA ORDERED CALCIUM Performed By: #### L 500.4050 #### [facility] [address] [place], [address] ALT [Catalytic activity/Vol] 12 U/L Normal <=34 [facility] Comment on above: Order Comment: DR CHIARA OSORIO ORDERED CMP DR CHAVIRA ORDERED CALCIUM Performed By: #### L 500.4050 #### [facility] [address] [place], [address] AST [Catalytic activity/Vol] 23 U/L Normal <=31 [facility] Comment on above: Order Comment: DR CHIARA OSORIO ORDERED CMP DR CHAVIRA ORDERED CALCIUM Performed By: #### L 500.4050 #### [facility] [address] [place], [address] Bilirubin [Mass/Vol] 0.21 mg/dL Normal 0.00-1.30 [facility] Comment on above: Order Comment: DR CHIARA OSORIO ORDERED CMP DR CHAVIRA ORDERED CALCIUM Performed By: #### L 500.4050 #### [facility] [address] [place], [address] BUN/CRE 20.0 RATIO Normal 10-20 [facility] Comment on above: Order Comment: DR CHIARA OSORIO ORDERED CMP DR CHAVIRA ORDERED CALCIUM Performed By: #### L 500.4050 #### [facility] [address] [place], [address] Calcium [Mass/Vol] 9.2 mg/dL Normal 7.6-11.0 [facility] Comment on above: Order Comment: DR CHIARA OSORIO ORDERED CMP DR CHAVIRA ORDERED CALCIUM Performed By: #### L 500.4050 #### [facility] [address] [place], [address] Chloride [Moles/Vol] 106 mmol/L Normal 98-108 [facility] Comment on above: Order Comment: DR CHIARA OSORIO ORDERED CMP DR CHAVIRA ORDERED CALCIUM Performed By: #### L 500.4050 #### [facility] [address] [place], [address] CO2 [Moles/Vol] 25.2 mmol/L Normal 21.0-32.0 [facility] Comment on above: Order Comment: DR CHIARA OSORIO ORDERED CMP DR CHAVIRA ORDERED CALCIUM Performed By: #### L 500.4050 #### [facility] [address] [place], [address] Creatinine [Mass/Vol] 1.14 mg/dL Normal 0.70-1.20 [facility] Comment on above: Order Comment: DR CHIARA OSORIO ORDERED CMP DR CHAVIRA ORDERED CALCIUM Performed By: #### L 500.4050 #### [facility] [address] [place], [address] ECRCL 40.89 ml/min Low 50-250 [facility] Comment on above: Order Comment: DR CHIARA OSORIO ORDERED CMP DR CHAVIRA ORDERED CALCIUM Performed By: #### L 500.4050 #### [facility] [address] [place], [address] GAP 9 Normal 5-15 [facility] Comment on above: Order Comment: DR CHIARA OSORIO ORDERED CMP DR CHAVIRA ORDERED CALCIUM Performed By: #### L 500.4050 #### [facility] [address] [place], [address] GFR/1.73 sq M.predicted among non-blacks MDRD (S/P/Bld) [Vol rate/Area] 52 mL/min/{1.73_m2} Low >60 [facility] Comment on above: Order Comment: DR CHIARA OSORIO ORDERED CMP DR CHAVIRA ORDERED CALCIUM Result Comment: mL/m in/1.73m2 CKD-EPI Creatinine Equation (2020) Performed By: #### L 500.4050 #### [facility] [address] [place], [address] Globulin (S) [Mass/Vol] 2.1 g/dL Low 2.2-4.2 [facility] Comment on above: Order Comment: DR CHIARA OSORIO ORDERED CMP DR CHAVIRA ORDERED CALCIUM Performed By: #### L 500.4050 #### [facility] [address] [place], [address] Glucose [Mass/Vol] 113 mg/dL High 70-99 [facility] Comment on above: Order Comment: DR CHIARA OSORIO ORDERED CMP DR CHAVIRA ORDERED CALCIUM Performed By: #### L 500.4050 #### [facility] [address] [place], [address] Potassium [Moles/Vol] 3.7 mmol/L Normal 3.3-5.1 [facility] Comment on above: Order Comment: DR CHIARA OSORIO ORDERED CMP DR CHAVIRA ORDERED CALCIUM Performed By: #### L 500.4050 #### [facility] [address] [place], [address] Sodium [Moles/Vol] 141 mmol/L Normal 133-145 [facility] Comment on above: Order Comment: DR CHIARA OSROIO ORDERED CMP DR CHAVIRA ORDERED CALCIUM Performed By: #### L 500.4050 #### [facility] [address] [place], [address] T PROT 6.1 g/dL Normal 5.9-8.4 [facility] Comment on above: Order Comment: DR CHIARA OSORIO ORDERED CMP DR CHAVIRA ORDERED CALCIUM Performed By: #### L 500.4050 #### [facility] [address] [place], [address] Urea nitrogen [Mass/Vol] 23 mg/dL High 4-19 [facility] Comment on above: Order Comment: DR CHIARA OSORIO ORDERED CMP DR CHAVIRA ORDERED CALCIUM Performed By: #### L 500.4050 #### [facility] [address] [place], [address] Eosinophil percentageOrdered By: Louis Segal on 12-03-2024 Eosinophils/100 WBC (Bld) 2.5 % 0-5 [facility] Erythrocyte distribution wid th ratioOrdered By: Louis Segal on 12-03-2024 Erythrocyte distribution width (RBC) [Ratio] 17.3 % High 11.6-14.6 [facility] Erythrocyte distribution wid th standard deviationOrdered By: Louis Segal on 12-03-2024 Erythrocyte distribution width (RBC) [Entitic vol] 44.3 fL High 35.1-43.9 [facility] Estimation of creatinine timothy aranceOrdered By: Louis Segal on 12-03-2024 Estimated Creatinine Clearance Calc 40.89 ml/min Low 50-250 [facility] GFR/1.73 sq M.predicted mya g non-blacks MDRD (S/P/Bld) [Vol rate/Area]Ordered By: Louis Segal on 12-03-2024 Estimated GFR (MDRD) Non-Af Amer 52 Low >60 [facility] Comment on above: mL/min/1.73m2 CKD-EP I Creatinine Equation (2020) Hematocrit Auto (Bld) [Volum e fraction]Ordered By: Louis Segal on 12-03-2024 Hematocrit (Bld) [Volume fraction] 22.7 % Low 37-47 [facility] Hemoglobin measurementOrdere d By: Louis Segal on 12-03-2024 Hemoglobin (Bld) [Mass/Vol] 6.6 g/dL Low 12.0-15.0 [facility] Hypochromatic red blood cell detectionOrdered By: Louis Segal on 12-03-2024 Hypochromia Ql (Bld) 1+ [facility] Hypochromia Ql (Bld)Ordered By: Louis Cathi on 12-03-2024 Hypochromasia 1+ [facility] Immature granulocytes/100 WB C Auto (Bld)Ordered By: Louis Segal on 12-03-2024 Immature granulocytes/100 WBC (Bld) 0.200 % 0.0-0.9 [facility] Comment on above: IG% - Immature Granu locytes (promyelocytes, myelocytes and metamyelocytes) > 1% indicates that a LEFT SHIFT is Present. Laboratory - Chemistry and C hemistry - challengeOrdered By: Louis Segal on 12-03-2024 AST [Catalytic activity/Vol] 23 U/L <32 [facility] Laboratory - Hematology and Cell countsOrdered By: Louis Segal on 12-03-2024 Anisocytosis Ql (Bld) 1+ [facility] Lymphocytes Auto (Unsp spec) [#/Vol]Ordered By: Louis Segal on 12-03-2024 Lymphocytes (Bld) [#/Vol] 1.05 10*3/uL 0.83-4.51 [facility] Lymphocytes/100 WBC Auto (Un sp spec)Ordered By: Louis Segal on 12-03-2024 Lymphocytes/100 WBC (Bld) 23.9 % 19-41 [facility] MCV (mean corpuscular volume ) determinationOrdered By: Louis Segal on 12-03-2024 MCV (RBC) [Entitic vol] 70.9 fL Low 81-99 [facility] Mean corpuscular hemoglobin (MCH) determinationOrdered By: Louis Segal on 12-03-2024 MCH (RBC) [Entitic mass] 20.6 pg Low 27.0-32.0 [facility] Mean corpuscular hemoglobin concentration (MCHC) determinationOrdered By: Louis Segal on 12-03-2024 MCHC (RBC) [Mass/Vol] 29.1 g/dL Low 32-36 [facility] Mean platelet volume determi nationOrdered By: Louis Segal on 12-03-2024 Platelet mean volume (Bld) [Entitic vol] 11.8 fL 6.2-12.0 [facility] Monocyte percentageOrdered B y: Louis Segal on 12-03-2024 Monocytes/100 WBC (Bld) 7.1 % 0-10 [facility] Neutrophil percentageOrdered By: Louis Segal on 12-03-2024 Neutrophils/100 WBC (Bld) 66.1 % 47-70 [facility] Nucleated red blood cell per centageOrdered By: Louis Segal on 12-03-2024 Nucleated RBC/100 WBC (Bld) [Ratio] 0 % 0-5 [facility] Oncology Visit Reporton 11-22 Oncology Visit Report [facility] [address] [address] OFFICE VISIT Date of Service: 12/03/24 1421 MR#: [id number] Acct: [id number] Name: MATY HIGH Rep #: [id number] : 1955 From: Louis Segal MD Age/Sex: 69/F Location: [facility] [place] Status: Signed HPI Subjective Date of Service 12/03/24 Chief Complaint F/u for dizziness. History of Present Illness 69-year-old female who presented after an abnormal screening mammogram. No palpable abnormalities felt by patient or surgery. May 31, 2021 Right breast, core biopsy:Invasive ductal carcinoma with the following characteristics:Nuclear grade ???1/3Maximal length ???10mm ANTIBODY /CLONE [id number] (DO-7) negativeKi-67 (30-9) positiveCK8 (61tbuyD92)positiveCK5-6 (D5 1684) negativeCalponin-1 (CC805L) tgkplcrnK38 (BC28)negativeE-Cad (ECH-6) positiveCOX-2 (SP21) positiveMORPHOMETRIC ANALYSIS ER (clone 6F11) positive, 95% strong intensity ME (clone 16/1E2) positive, 65% moderate intensityHer-2Neu (clone CB11) negative 0 July 04, 2021 right breast partial mastectomy with sentinel lymph node biopsy: MICROSCOPIC DIAGNOSISA. Right breast mass, lumpectomy with wire localization:Invasive ductal carcinoma.See cancer summary in the comment section.B. Right axillary lymph node dissection:Twelve out of twelve lymph nodes, negative for metastatic carcinoma.SJ:charlette 1COMMENTBREAST CANCER SUMMARYProcedure ???lumpectomy with needle localization Specimen laterality ???Invasive tumor:Tumor site ???8 o???clock, 4 cm from the nippleTumor size ???1.2 x 1.1 x 1 cmHistologic type ???invasive ductal carcinoma (not otherwise specified)Histologic grade ([place] grade):Glandular/tubular differentiation score -2Nuclear pleomorphism score -2Mitotic count score -1Overall grade ???grade 1(score of 5)Tumor focality ???single focus of invasive carcinomaDuctal carcinoma in situ ???not identifiedLobular carcinoma in situ -not identifiedTumor extension:Skin ???not presentNipple ???not applicableSkeletal muscle ???no skeletal muscle is present.Margins:Invasive carcinoma margin ???the tumor is 0.4 cm away from the closest posterior margin.Regional lymph nodes:Total number of lymph nodes examined ???12Number of sentinel lymph nodes examined -0Number of lymph nodes with macrometastases, micrometastases or isolated tumor cells -0Treatment effect ???no known presurgical therapy.Lymphvascular invasion ???not identifiedDermal lymphvascular invasion ???not applicableAdditional Pathologic Findings ???intraductal hyperplasia without atypia.Ancillary Studies: Previously performed on same tumor ([id number]/ [id number])ER: positive (>95%, strong intensity)ME: positive (65%, moderate intensity)[id number]: negative (0)Microcalcifications ???not identifiedClinical History -Please make reference to previous specimen ([id number]) right breast, core biopsy with diagnosis of invasive ductal carcinoma.PATHOLOGIC STAGE: [id number] pMx Treatment summary: July 04, 2021 right breast partial mastectomy with sentinel lymph node biopsy. Adjuvant radiation: 08/15/2021 ??? 08/26/2021: received 2850 cGy in 5 fractions to the right partial breast Adjuvant hormonal therapy with Arimidex: August 29, 2021- Adjuvant chemotherapy: Declined no Oncotype DX done. Interval History Comes for Prolia injection, feeling dizzy, has swelling of the feet. [facility] Medical History History of GI bleed Wears hearing aid Wears glasses Cancer Easy bruising History of ulceration Chronic constipation Gastric reflux Shortness of breath on exertion Emphysema, unspecified COPD (chronic obstructive pulmonary disease) History of pain when walking History of edema Hyperparathyroidism Abnormal ultrasound of breast Breast pain, right Encounter for screening for malignant neoplasm of lung Tobacco use disorder, continuous Encounter for screening for malignant neoplasm of lung in current smoker with 30 pack year history or greater Sciatic leg pain Wears dentures Post-menopausal Depression Anemia High cholesterol Back pain Chronic cough Hypertension Iron deficiency anemia due to chronic blood loss Osteopenia Invasive ductal carcinoma of right breast SOB (shortness of breath) Arthritis GERD (gastroesophageal reflux disease) Smoking greater than 30 pack years Emphysema lung Bronchitis Asthma Surgical History H/O parathyroidectomy S/P parathyroidectomy S/P lumpectomy, right breast Hx of colonoscopy Hx of fusion of cervical spine Status post right breast lumpectomy History of tonsillectomy and adenoidectomy Hx of colonoscopy ( 2019) H/O tubal ligation Family History Mother Diabetes Hypertension Gastric ulcer Hyperlipidemia (more content not included)... Normal [facility] Ovalocyte detectionOrdered B y: Louis Segal on 12-03-2024 Ovalocytes LM Ql (Bld) 1+ [facility] Ovalocytes LM Ql (Bld)Ordere d By: Louis Segal on 12-03-2024 Ovalocytes 1+ [facility] PTH intactOrdered By: Melissa Chavira on 12-03-2024 Parathyroid Hormone (Intact) 103 pg/mL High [facility] PTHINon 12-03-2024 PTH 103 pg/mL High [address] [place] [address] Comment on above: Performed By: #### L 509.1000 #### [facility] Laboratory [address] [place], [address] Platelet countOrdered By: Evita Segal on 12-03-2024 Platelets (Bld) [#/Vol] 167 10*3/uL 150-450 [facility] Potassium (Unsp spec) [Mass/ Vol]Ordered By: Louis Segal on 12-03-2024 Potassium [Moles/Vol] 3.7 mmol/L 3.3-5.1 [facility] RBC Auto (Bld) [#/Vol]Ordere d By: Louis Segal on 12-03-2024 RBC (Bld) [#/Vol] 3.20 10*6/uL Low 4.2-5.4 [facility] Serum creatinine measurement (mass/volume)Ordered By: Louis Segal on 12-03-2024 Creatinine [Mass/Vol] 1.14 mg/dL 0.70-1.20 [facility] Serum globulin measurementOr dered By: Louis Segal on 12-03-2024 Globulin (S) [Mass/Vol] 2.1 g/dL Low 2.2-4.2 [facility] Serum glucose measurement (m ass/volume)Ordered By: Louis Segal on 12-03-2024 Glucose [Mass/Vol] 113 mg/dL High 70-99 [facility] Serum or plasma alanine jones otransferase (ALT) measurementOrdered By: Louis Segal on 12-03-2024 ALT [Catalytic activity/Vol] 12 U/L <35 [facility] Serum or plasma albumin jose antonio urement (mass/volume)Ordered By: Louis Segal on 12-03-2024 Albumin [Mass/Vol] 4.0 g/dL 3.4-4.8 [facility] Serum or plasma albumin/glob ulin mass ratioOrdered By: Louis Segal on 12-03-2024 Albumin/Globulin [Mass ratio] 1.9 {ratio} 0.9-2.4 [facility] Serum or plasma alkaline ju sphatase measurementOrdered By: Louis Segal on 12-03-2024 ALP [Catalytic activity/Vol] 62 U/L 35-104 [facility] Serum or plasma calcium jose antonio urement (mass/volume)Ordered By: Louis Segal on 12-03-2024 Calcium [Mass/Vol] 9.2 mg/dL 7.6-11.0 [facility] Serum or plasma urea nitroge n measurement (mass/volume)Ordered By: Louis Segal on 12-03-2024 Urea nitrogen [Mass/Vol] 23 mg/dL High 4-19 [facility] Sodium levelOrdered By: Tony Segal on 12-03-2024 Sodium [Moles/Vol] 141 mmol/L 133-145 [facility] Total proteinOrdered By: Eduardo Segal on 12-03-2024 Protein [Mass/Vol] 6.1 g/dL 5.9-8.4 [facility] Type AND Screenon 12-03-2024 Ab SCREEN GEL Negative Normal [facility] Comment on above: Order Comment: N03/1 12/16 @ 0800NYA Performed By: #### B , [facility] ####[facility] [address] [place], [place], [address] ABO and Rh group Nom (Bld) Blood group O Rh(D) positive Normal [facility] Comment on above: Order Comment: N03/1 12/16 @ 0800NYA Performed By: #### B , [facility] ####[facility] [address] [place], [place], [id number] White blood cell (WBC) count Ordered By: Louis Segal on 12-03-2024 WBC (Bld) [#/Vol] 4.4 10*3/uL 4.4-11.0 [facility] Iron+Iron Binding Capacityon 11-27-2024 IRON SATURATION 7.1 Low 15.0-55.0 [facility] Comment on above: Order Comment: DR CHIARA OSORIO ORDERED CMP DR CHAVIRA ORDERED CALCIUM Result Comment: AMENDED REPORT 11/27/24 1431 IRON SATURATION previously reported as: 7.0 L % Performed By: #### L 500.4050 #### [facility] Laboratory [address] [place], [place], [address] TIBC 493 ug/dL High 250-450 [facility] Comment on above: Order Comment: DR CHIARA OSORIO ORDERED CMP DR CHAVIRA ORDERED CALCIUM Result Comment: AMENDED REPORT 11/27/24 1431 TIBC previously reported as: Test not performed ug/dL Performed By: #### L 500.4050 #### [facility] Laboratory [address] [place], [address] Calculated total iron bindin g capacityOrdered By: Radha Brothers on 11-26-2024 Total Iron Binding Capacity 493 ug/dL High 250-450 [facility] Comment on above: Previous reported re sult: TNP ug/dLEdited by: JAMEE on 11/27/24:1431 AMENDED REPORT 11/27/24 1431 TIBC previously reported as: Test not performed ug/dL Duplex ultrasound of renal a rtery reportOrdered By: López Guillory on 11-26-2024 Study report [facility] [address] [place] [address] Renal Artery Duplex Ultrasound 11/26/24 09 MR#: [id number] Acct: [id number] Name: MATY HIGH Rep #:[id number] : 1955 69 From: López Perales Attending Dr: Dr. Radha Brothers, DO Status: REG CLI Ordering Dr: Radha Brothers DO Date: 0 11/26/24 Location: CVS Sex: F C Admitted: Reason For Study Reason For Study: CKD stage 3 Right Renal Artery Left Renal Artery Right renal artery ostium 83/11.8 Left renal artery ostium 125.3/15.7 RSV/EDV. PSV/EDV. Right renal artery proximal 110.7/17.5 Left renal artery proximal PSV/EDV PSV/EDV. 79.6/10 . Right renal artery mid 130.8/24.8 Left renal artery mid 84.1/10.4 PSV/EDV . PSV/EDV. Left renal artery distal 83.7/20 PSV/EDV. Right renal artery distal 94.5/14 Left RAR 1.71. PSV/EDV. Left Renal Parenchyma Right RAR 1.79. Left upper pole medulla 22.3/5.3 Right Renal Parenchyma PSV/EDV . Upper Pole Medula 29.2/5.1 PSV/EDV. Left upper pole medulla EDR 0.2 . Right upper pole medulla EDR 0.2 . Left upper pole medulla R.I. 0.76 . Right upper pole medulla R.I. 0.83 . UPCortex 14.7/3.9 PSV/EDV. Upper Carlos Cortx 13.2/4 PSV/EDV. Left upper pole cortex EDR 0.3 . Right upper pole cortex EDR 0.3 . Left upper pole cortex R.I. 0.74 . Right upper pole cortex R.I. 0.70 . Left lower Pole medulla 21.8/5.3 Right lower Pole medulla 30.1/6.5 PSV/EDV . PSV/EDV . Left lower pole medulla EDR 0.2 . Right lower pole medulla EDR 0.2 . Left lower pole medulla R.I. 0.76 . Right lower pole medulla R.I. 0.78 . Lower Pole Cortx 15.2/3.9 PSV/EDV. Lower Pole Cortex 14.4/3.9 PSV/EDV. Left lower pole cortex EDR 0.3 . Right lower pole cortex EDR 0.3 . Left lower pole cortex R.I. 0.75 . Right lower pole cortex R.I. 0.73 . Left Renal Hilar Right Renal Hilar LTHilar avg 61.1/9.6 PSV/EDV . Right Hilar avg 57.6/9.4 PSV/EDV. Left hilar acceleration time 30 m/sec. Right hilar acceleration time 60 m/sec. Left Renal Dimensions Right Renal Dimensions Left kidney size 8.46 cm . Right kidney size 9.21 cm . Left cortical dimension 1.29 cm . Right cortical dimension 1.54 cm . Aorta Proximal abdominal aorta 1.90 x 1.88 cm . Proximal abdominal aorta peak systolicvelocity is 73.2 cm/sec . Distal abdominal aorta 1.43 x 1.43 cm . Distal abdominal aorta peak systolic velocity is 67.1 cm/sec . VL/Renal Artery Duplex Ultrasound Interpretation Summary Right renal artery patent with normal velocities and no evidence of stenosis. Left renal artery patent with normal velocities and no evidence of stenosis. Right renal vein patent. Left renal vein patent. Right kidney normal in size. Left kidney diminshed in size. ___ Ordering Physician: Radha Brothers Referring Physician: Tani Grey Chi Performed By: Afia Ring RVT 11/26/24 7553 Date _ López Guillory MD CC: Dr. Radha Brothers DO; Dr. Tani Grey MD ~ Date Dictated: 11/26/24908 Date Transcribed: 11/26/24 1633 Data Compiler: Signed [facility] Work Phone: Iron (Unsp spec) [Mass/Mass] Ordered By: Radha Brothers on 11-26-2024 Iron [Mass/Vol] 35 ug/dL Low 50-170 [facility] Iron measurement (mass/mass) Ordered By: Radha Brothers on 11-26-2024 Iron (Unsp spec) [Mass/Mass] 35 ug/dL Low 50-170 [facility] Iron saturation [Mass fracti on]Ordered By: Radha Brothers on 11-26-2024 Iron Saturation 7.1 % Low 15.0-55.0 [facility] Comment on above: Previous reported re sult: 7.0 %Edited by: JAMEE on 11/27/24:1431 AMENDED REPORT 11/27/24 1431 IRON SATURATION previously reported as: 7.0 L % No Panel InformationOrdered By: Radha Brothers on 11-26-2024 Unsaturated Iron Binding Capacity 458 ug/dL High 228-428 [facility] Renal Artery Duplex Ultrasou ndon 11-26-2024 Renal Artery Duplex Ultrasound [facility] [address] [place] [address] Renal Artery Duplex Ultrasound 11/26/24908 MR#: [id number] Acct: [id number] Name: MATY HIGH Rep #: [id number] : 1955 69 From: López Guillory MD Attending Dr: Dr. Radha Brothers DO Status: REG CLI Ordering Dr: Radha Brothers DO Date: 11/26/24 Location: [facility] Sex: F C Admitted: Reason For Study Reason For Study: CKD stage 3 Right Renal Artery Left Renal Artery Right renal artery ostium 83/11.8 Left renal artery ostium 125.3/15.7 RSV/EDV. PSV/EDV. Right renal artery proximal 110.7/17.5 Left renal artery proximal PSV/EDV PSV/EDV. 79.6/10 . Right renal artery mid 130.8/24.8 Left renal artery mid 84.1/10.4 PSV/EDV . PSV/EDV. Left renal artery distal 83.7/20 PSV/EDV. Right renal artery distal 94.5/14 Left RAR 1.71. PSV/EDV. Left Renal Parenchyma Right RAR 1.79. Left upper pole medulla 22.3/5.3 Right Renal Parenchyma PSV/EDV . Upper Pole Medula 29.2/5.1 PSV/EDV. Left upper pole medulla EDR 0.2 . Right upper pole medulla EDR 0.2 . Left upper pole medulla R.I. 0.76 . Right upper pole medulla R.I. 0.83 . UP Cortex 14.7/3.9 PSV/EDV. Upper Carlos Cortx 13.2/4 PSV/EDV. Left upper pole cortex EDR 0.3 . Right upper pole cortex EDR 0.3 . Left upper pole cortex R.I. 0.74 . Right upper pole cortex R.I. 0.70 . Left lower Pole medulla 21.8/5.3 Right lower Pole medulla 30.1/6.5 PSV/EDV . PSV/EDV . Left lower pole medulla EDR 0.2 . Right lower pole medulla EDR 0.2 . Left lower pole medulla R.I. 0.76 . Right lower pole medulla R.I. 0.78 . Lower Pole Cortx 15.2/3.9 PSV/EDV. Lower Pole Cortex 14.4/3.9 PSV/EDV. Left lower pole cortex EDR 0.3 . Right lower pole cortex EDR 0.3 . Left lower pole cortex R.I. 0.75 . Right lower pole cortex R.I. 0.73 . Left Renal Hilar Right Renal Hilar LT Hilar avg 61.1/9.6 PSV/EDV . Right Hilar avg 57.6/9.4 PSV/EDV. Left hilar acceleration time 30 m/sec. Right hilar acceleration time 60 m/sec. Left Renal Dimensions Right Renal Dimensions Left kidney size 8.46 cm . Right kidney size 9.21 cm . Left cortical dimension 1.29 cm . Right cortical dimension 1.54 cm . Aorta Proximal abdominal aorta 1.90 x 1.88 cm . Proximal abdominal aorta peak systolic velocity is 73.2 cm/sec . Distal abdominal aorta 1.43 x 1.43 cm . Distal abdominal aorta peak systolic velocity is 67.1 cm/sec . VL/Renal Artery Duplex Ultrasound Interpretation Summary Right renal artery patent with normal velocities and no evidence of stenosis. Left renal artery patent with normal velocities and no evidence of stenosis. Right renal vein patent. Left renal vein patent. Right kidney normal in size. Left kidney diminshed in size. ___ Ordering Physician: Radha Brothers Referring Physician: Tani Grey Chi Performed By: Afia Ring RVT 11/26/24 1633 Date López Guillory MD CC: Dr. Radha Brothers, DO; Dr. Tani Grey MD Date Dictated: 11/26/24908 Date Transcribed: 11/26/241632 Data Compiler: Signed Normal [facility] Serum or plasma ferritin reji surement (mass/volume)Ordered By: Radha Brothers on 11-26-2024 Ferritin [Mass/Vol] 9 ng/mL Low 22-378 [facility] Comment on above: Order Comment: DR CHIARA OSORIO ORDERED CMP DR CHAVIRA ORDERED CALCIUM Performed By: #### L 500.4050 #### [facility] Laboratory [address] [place], [address] Serum or plasma iron saturat ion measurement (mass fraction)Ordered By: Radha Brothers on 11-26-2024 Iron saturation [Mass fraction] 7.1 % Low 15.0-55.0 [facility] Comment on above: Previous reported re sult: 7.0 %Edited by: JAMEE on 11/27/24:1431 AMENDED REPORT 11/27/24 1431 IRON SATURATION previously reported as: 7.0 L % 59-SD-Nuvnaii DOrdered By: Phan Grey on 11-14-2024 Vitamin D 25-Hydroxy 53.5 ng/mL [facility] Comment on above: Vitamin D 25(OH) Sta tus Range Deficiency <20 ng/mL (50nmol/L) Insufficiency 20 - 30 ng/mL (50 - 75 nmol/L) Sufficiency 30 - 100 ng/mL (75 - 250 nmol/L) Toxicity >100 ng/mL (>250 nmol/L) Absolute lymphocyte countOrd ered By: Tani Grey on 11-14-2024 Lymphocytes Auto (Unsp spec) [#/Vol] 1.35 10*3/uL 0.83-4.51 [facility] Absolute neutrophil countOrd ered By: Tani Grey on 11-14-2024 Neutrophils (Bld) [#/Vol] 2.8 10*3/uL 2.0-7.7 [facility] Albumin to globulin ratioOrd ered By: Tani Grey on 11-14-2024 Albumin/Globulin [Mass ratio] 1.2 {ratio} 0.9-2.4 [facility] Automated lymphocyte count a s percentage of total leukocytesOrdered By: Tani Grey on 11-14-2024 Lymphocytes/100 WBC Auto (Unsp spec) 28.8 % 19-41 [facility] Basophil percentageOrdered B y: Tani Grey on 11-14-2024 Basophils/100 WBC (Bld) 0.9 % 0-1 [facility] Bilirubin, totalOrdered By: Tani Grey on 11-14-2024 Bilirubin [Mass/Vol] 0.30 mg/dL 0.20-1.00 [facility] Comment on above: For patients on eltr ombopag therapy, use of Dimension [place] TBIL is not recommended. Blood urea nitrogen (BUN)/cr eatinine ratioOrdered By: Tani Grey on 11-14-2024 Urea nitrogen/Creatinine [Mass ratio] 15.6 mg/mg 10-20 [facility] CBC W/Diff, Automatedon 10-26 Absolute Lymph 1.35 X10 3/uL Normal 0.83-4.51 [facility] Comment on above: Performed By: #### L 100.0100, L500.4050, L506.1000, L501.9520 #### [facility] Laboratory [address] [place], [address] Absolute Neut 2.8 X10 3/uL Normal 2.0-7.7 [facility] Comment on above: Performed By: #### L 100.0100, L500.4050, L506.1000, L501.9520 #### [facility] Laboratory [address] [place], [address] Basophils/100 WBC (Bld) 0.9 % Normal 0-1 [facility] Comment on above: Performed By: #### L 100.0100, L500.4050, L506.1000, L501.9520 #### [facility] Laboratory [address] [place], [address] Eosinophils/100 WBC (Bld) 1.9 % Normal 0-5 [facility] Comment on above: Performed By: #### L 100.0100, L500.4050, L506.1000, L501.9520 #### [facility] Laboratory [address] [place], [address] Erythrocyte distribution width (RBC) [Ratio] 16.3 % High 11.6-14.6 [facility] Comment on above: Performed By: #### L 100.0100, L500.4050, L506.1000, L501.9520 #### [facility] Laboratory [address] [place], [address] Hematocrit (Bld) [Volume fraction] 24.9 % Low 37-47 [facility] Comment on above: Performed By: #### L 100.0100, L500.4050, L506.1000, L501.9520 #### [facility] Laboratory [address] [place], [address] Hemoglobin (Bld) [Mass/Vol] 7.3 g/dL Low 12.0-15.0 [facility] Comment on above: Performed By: #### L 100.0100, L500.4050, L506.1000, L501.9520 #### [facility] Laboratory [address] [place], [address] IG% 0.400 Normal 0.0-0.9 [facility] Comment on above: Result Comment: IG% - Immature Granulocytes (promyelocytes, myelocytes and metamyelocytes) > 1% indicates that a LEFT SHIFT is Present. Performed By: #### L 100.0100, L500.4050, L506.1000, L501.9520 #### [facility] Laboratory [address] [place], [address] Lymphocytes/100 WBC (Bld) 28.8 % Normal 19-41 [facility] Comment on above: Performed By: #### L 100.0100, L500.4050, L506.1000, L501.9520 #### [facility] Laboratory [address] [place], [address] MCH (RBC) [Entitic mass] 20.4 pg Low 27.0-32.0 [facility] Comment on above: Performed By: #### L 100.0100, L500.4050, L506.1000, L501.9520 #### [facility] Laboratory [address] [place], [address] MCHC (RBC) [Mass/Vol] 29.3 g/dL Low 32-36 [facility] Comment on above: Performed By: #### L 100.0100, L500.4050, L506.1000, L501.9520 #### [facility] Laboratory [address] [place], [address] MCV (RBC) [Entitic vol] 69.7 fL Low 81-99 [facility] Comment on above: Performed By: #### L 100.0100, L500.4050, L506.1000, L501.9520 #### [facility] Laboratory [address] [place], [address] Monocytes/100 WBC (Bld) 8.3 % Normal 0-10 [facility] Comment on above: Performed By: #### L 100.0100, L500.4050, L506.1000, L501.9520 #### [facility] Laboratory [address] [place], [address] Neutrophils/100 WBC (Bld) 59.7 % Normal 47-70 [facility] Comment on above: Performed By: #### L 100.0100, L500.4050, L506.1000, L501.9520 #### [facility] Laboratory [address] [place], [address] Nucleated RBC (Bld) [#/Vol] 0 10*3/uL Normal 0-5 [facility] Comment on above: Performed By: #### L 100.0100, L500.4050, L506.1000, L501.9520 #### [facility] Laboratory [address] [place], [address] Platelet mean volume (Bld) [Entitic vol] 10.9 fL Normal 6.2-12.0 [facility] Comment on above: Performed By: #### L 100.0100, L500.4050, L506.1000, L501.9520 #### [facility] Laboratory [address] [place], [address] Platelets (Bld) [#/Vol] 223 10*3/uL Normal 150-450 [facility] Comment on above: Performed By: #### L 100.0100, L500.4050, L506.1000, L501.9520 #### [facility] Laboratory [address] [place], [address] RBC (Bld) [#/Vol] 3.57 10*6/uL Low 4.2-5.4 [facility] Comment on above: Performed By: #### L 100.0100, L500.4050, L506.1000, L501.9520 #### [facility] Laboratory [address] [place], [address] RDW SD 41.1 fl Normal 35.1-43.9 [facility] Comment on above: Performed By: #### L 100.0100, L500.4050, L506.1000, L501.9520 #### [facility] Laboratory [address] [place], [address] WBC (Bld) [#/Vol] 4.7 10*3/uL Normal 4.4-11.0 [facility] Comment on above: Performed By: #### L 100.0100, L500.4050, L506.1000, L501.9520 #### [facility] Laboratory [address] [place], [address] CTA Abd w/Runoff W/WO Contra ston 11-14-2024 CTA Abd w/Runoff W/WO Contrast [facility] Imaging Services [address] [place] [address] CTA Abd w/Runoff W/WO Contrast MR#: [id number] Acct: [id number] Name: MATY HIGH Rep #: [id number] : 1955 F 69 From: Dae malloy MD PCP: Dr. Tani Grey MD Status: REG CLI Study: CTA Abd w/Runoff W/WO Contrast Date of Exam: 0 11/14/24 Exam# [id number] Ordering Dr: Tani Grey MD PROCEDURE: CTA ABD W/RUNOFF W/WO CONTRAST REASON FOR EXAM: 2 year history of lower abdominal/pelvic pain. History of breast cancer. TECHNIQUE: CTA imaging of the abdomen, pelvis, and lower extremities with intravenous contrast. 3D reconstructions. IV CONTRAST: 78 mL of Isovue 370. COMPARISON: None. FINDINGS: Minimal linear atelectasis and/or scarring at the right lung base. Aorta: Abdominal aorta is normal in size. Atherosclerotic plaque formation.. No evidence of aneurysm or dissection. Celiac: Normal. SMA: Normal. AMURICE : Normal. Right Renal: Normal. Left Renal: Normal. RIGHT Iliac Arteries: Common Iliac: Minimal nonobstructive plaque formation. External Iliac: Normal. Internal Iliac: Normal. LEFT Iliac Arteries: Common Iliac: Minimal nonobstructive calcific plaque formation. External Iliac: Normal. Internal Iliac: Normal. RIGHT Lower Extremity: Common Femoral: Normal. Superficial Femoral: Normal. Deep Femoral: Normal. Popliteal: Normal. Anterior Tibial: Normal. Tibioperoneal Trunk: Normal. Posterior Tibial: Normal. Peroneal: Normal. Dorsalis Pedis: Opacified LEFT Lower Extremity: Common Femoral: Normal. Superficial Femoral: Normal. Deep Femoral: Normal. Popliteal: Normal. Anterior Tibial: Normal. Tibioperoneal Trunk: Normal. Posterior Tibial: Normal. Peroneal: Normal. Dorsalis Pedis: Opacified Other Stents/Grafts: None. Other Findings: The visualized abdominal and pelvic viscera are unremarkable. No ascites or lymphadenopathy. Bone windows are unremarkable. CT/CTA Abd w/Runoff W/WO Contrast IMPRESSION: Scattered atherosclerotic plaque formation of the abdominal aorta and right and left common iliac arteries. One or more dose reduction techniques were used (e.g., Automated exposure control, adjustment of the mA and/or kV according to patient size, use of iterative reconstruction technique). Reading Location: [place] [address] CC: Dr. Tani Grey MD Data Compiler: Signed Normal [facility] Carbon dioxide measurementOr dered By: Tani Grey on 11-14-2024 CO2 [Moles/Vol] 27.0 mmol/L 21.0-32.0 [facility] Chloride measurementOrdered By: Tani Grey on 11-14-2024 Chloride [Moles/Vol] 107 mmol/L 98-107 [facility] Comprehensive Metabolic Prof ilon 11-14-2024 Albumin [Mass/Vol] 3.4 g/dL Normal 3.2-5.0 [facility] Comment on above: Performed By: #### L 100.0100, L500.4050, L506.1000, L501.9520 #### [facility] Laboratory [address] [place], [address] Albumin/Globulin [Mass ratio] 1.2 {ratio} Normal 0.9-2.4 [facility] Comment on above: Performed By: #### L 100.0100, L500.4050, L506.1000, L501.9520 #### [facility] Laboratory [address] [place], [address] ALK P 55 U/L Normal 45-117 [facility] Comment on above: Performed By: #### L 100.0100, L500.4050, L506.1000, L501.9520 #### [facility] Laboratory [address] [place], [address] ALT [Catalytic activity/Vol] 13 U/L Normal 13-56 [facility] Comment on above: Performed By: #### L 100.0100, L500.4050, L506.1000, L501.9520 #### [facility] Laboratory [address] [place], [address] AST [Catalytic activity/Vol] 11 U/L Low 15-37 [facility] Comment on above: Performed By: #### L 100.0100, L500.4050, L506.1000, L501.9520 #### [facility] Laboratory [address] [place], [address] Bilirubin [Mass/Vol] 0.30 mg/dL Normal 0.20-1.00 [facility] Comment on above: Result Comment: For patients on eltrombopag therapy, use of Dimension Bristol TBIL is not recommended. Performed By: #### L 100.0100, L500.4050, L506.1000, L501.9520 #### [facility] [address] [place], [address] BUN/CRE 15.6 RATIO Normal 10-20 [facility] Comment on above: Performed By: #### L 100.0100, L500.4050, L506.1000, L501.9520 #### [facility] Laboratory [address] [place], [address] CA,Total 9.0 mg/dL Normal 8.5-10.1 [facility] Comment on above: Performed By: #### L 100.0100, L500.4050, L506.1000, L501.9520 #### [facility] Laboratory [address] [place], [address] Chloride [Moles/Vol] 107 mmol/L Normal 98-107 [facility] Comment on above: Performed By: #### L 100.0100, L500.4050, L506.1000, L501.9520 #### [facility] Laboratory [address] [place], [address] CO2 [Moles/Vol] 27.0 mmol/L Normal 21.0-32.0 [facility] Comment on above: Performed By: #### L 100.0100, L500.4050, L506.1000, L501.9520 #### [facility] [address] [place], [address] Creatinine [Mass/Vol] 1.09 mg/dL High 0.55-1.02 [facility] Comment on above: Result Comment: The validity of the calculated GFR GFRAA in patients over 70 years has not been determined. Clinical correlation is essential. Performed By: #### L 100.0100, L500.4050, L506.1000, L501.9520 #### [facility] [address] [place], [address] EST GFR - AA 64 mL/min Normal >60 [facility] Comment on above: Result Comment: Afri can Maltese GFR Calc Performed By: #### L 100.0100, L500.4050, L506.1000, L501.9520 #### [facility] Laboratory [address] [place], [address] GAP 5 Normal 5-15 [facility] Comment on above: Performed By: #### L 100.0100, L500.4050, L506.1000, L501.9520 #### [facility] Laboratory [address] [place], [address] GFR/1.73 sq M.predicted among non-blacks MDRD (S/P/Bld) [Vol rate/Area] 53 mL/min/{1.73_m2} Low >60 [facility] Comment on above: Result Comment: Non- GFR Calc Performed By: #### L 100.0100, L500.4050, L506.1000, L501.9520 #### [facility] [address] [place], [address] Globulin (S) [Mass/Vol] 2.9 g/dL Normal 2.2-4.2 [facility] Comment on above: Performed By: #### L 100.0100, L500.4050, L506.1000, L501.9520 #### [facility] [address] [place], [address] Glucose [Mass/Vol] 87 mg/dL Normal 74-106 [facility] Comment on above: Performed By: #### L 100.0100, L500.4050, L506.1000, L501.9520 #### [facility] Laboratory [address] [place], [address] Potassium [Moles/Vol] 3.9 mmol/L Normal 3.5-5.1 [facility] Comment on above: Performed By: #### L 100.0100, L500.4050, L506.1000, L501.9520 #### [facility] [address] [place], [address] Sodium [Moles/Vol] 139 mmol/L Normal 136-145 [facility] Comment on above: Performed By: #### L 100.0100, L500.4050, L506.1000, L501.9520 #### [facility] [address] [place], [address] T PROT 6.3 g/dL Low 6.4-8.2 [facility] Comment on above: Performed By: #### L 100.0100, L500.4050, L506.1000, L501.9520 #### [facility] [address] [place], [address] Urea nitrogen [Mass/Vol] 17 mg/dL Normal 7-18 [facility] Comment on above: Performed By: #### L 100.0100, L500.4050, L506.1000, L501.9520 #### [facility] [address] [place], [address] Eosinophil percentageOrdered By: Tani Grey on 11-14-2024 Eosinophils/100 WBC (Bld) 1.9 % 0-5 [facility] Erythrocyte distribution wid th ratioOrdered By: Tani Grey on 11-14-2024 Erythrocyte distribution width (RBC) [Ratio] 16.3 % High 11.6-14.6 [facility] Erythrocyte distribution wid th standard deviationOrdered By: Tani Grey on 11-14-2024 Erythrocyte distribution width (RBC) [Entitic vol] 41.1 fL 35.1-43.9 [facility] Erythrocyte distribution width (RBC) [Ratio] 41.1 fl 35.1-43.9 [facility] Estimated glomerular filtrat ion rate (GFR) AmericanOrdered By: Tani Grey on 11-14-2024 Estimated GFR (MDRD) Amer 64 mL/min >60 [facility] Comment on above: GFR Calc Glomerular filtration rate ( GFR) estimationOrdered By: Tani Grey on 11-14-2024 Estimated GFR (MDRD) Non-Af Amer 53 mL/min Low >60 [facility] Comment on above: Non- GFR Calc GFR/1.73 sq M.predicted among non-blacks MDRD (S/P/Bld) [Vol rate/Area] 53 mL/min/{1.73_m2} Low >60 [facility] Comment on above: Non- GFR Calc Glucose measurementOrdered B y: Tani Que on 11-14-2024 Glucose [Mass/Vol] 87 mg/dL 74-106 [facility] Hematocrit Auto (Bld) [Volum e fraction]Ordered By: Tani Grey on 11-14-2024 Hematocrit (Bld) [Volume fraction] 24.9 % Low 37-47 [facility] Hemoglobin measurementOrdere d By: Tani Grey on 11-14-2024 Hemoglobin (Bld) [Mass/Vol] 7.3 g/dL Low 12.0-15.0 [facility] Immature granulocytes/100 WB C Auto (Bld)Ordered By: Tani Grey on 11-14-2024 Immature granulocytes/100 WBC (Bld) 0.400 % 0.0-0.9 [facility] Comment on above: IG% - Immature Granu locytes (promyelocytes, myelocytes and metamyelocytes) > 1% indicates that a LEFT SHIFT is Present. Laboratory - Chemistry and C hemistry - challengeOrdered By: Tani Grey on 11-14-2024 AST [Catalytic activity/Vol] 11 U/L Low 15-37 [facility] Lymphocytes Auto (Unsp spec) [#/Vol]Ordered By: Tani Grey on 11-14-2024 Lymphocytes (Bld) [#/Vol] 1.35 10*3/uL 0.83-4.51 [facility] Lymphocytes/100 WBC Auto (Un sp spec)Ordered By: Tani Grey on 11-14-2024 Lymphocytes/100 WBC (Bld) 28.8 % 19-41 [facility] MCV (mean corpuscular volume ) determinationOrdered By: Tani Grey on 11-14-2024 MCV (RBC) [Entitic vol] 69.7 fL Low 81-99 [facility] Mean corpuscular hemoglobin (MCH) determinationOrdered By: Tani Grey 11-14-2024 MCH (RBC) [Entitic mass] 20.4 pg Low 27.0-32.0 [facility] Mean corpuscular hemoglobin concentration (MCHC) determinationOrdered By: Tani Grey on 11-14-2024 MCHC (RBC) [Mass/Vol] 29.3 g/dL Low 32-36 [facility] Mean platelet volume determi nationOrdered By: Tani Grey on 11-14-2024 Platelet mean volume (Bld) [Entitic vol] 10.9 fL 6.2-12.0 [facility] Monocyte percentageOrdered B y: Tani Grey on 11-14-2024 Monocytes/100 WBC (Bld) 8.3 % 0-10 [facility] Neutrophil percentageOrdered By: Tani Grey on 11-14-2024 Neutrophils/100 WBC (Bld) 59.7 % 47-70 [facility] Nucleated red blood cell per centageOrdered By: Tani Grey on 11-14-2024 Nucleated RBC/100 WBC (Bld) [Ratio] 0 % 0-5 [facility] Platelet countOrdered By: Carroll Grey on 11-14-2024 Platelets (Bld) [#/Vol] 223 10*3/uL 150-450 [facility] Potassium measurementOrdered By: Tani Grey on 11-14-2024 Potassium [Moles/Vol] 3.9 mmol/L 3.5-5.1 [facility] RBC Auto (Bld) [#/Vol]Ordere d By: Tani Grey on 11-14-2024 RBC (Bld) [#/Vol] 3.57 10*6/uL Low 4.2-5.4 [facility] Serum anion gap measurementO rdered By: Tani Grey on 11-14-2024 Anion gap [Moles/Vol] 5 mmol/L 5-15 [facility] Serum globulin measurementOr dered By: Tani Grey on 11-14-2024 Globulin (S) [Mass/Vol] 2.9 g/dL 2.2-4.2 [facility] Serum or plasma alanine jones otransferase (ALT) measurementOrdered By: Tani Grey 11-14-2024 ALT [Catalytic activity/Vol] 13 U/L 13-56 [facility] Serum or plasma albumin jose antonio urement (mass/volume)Ordered By: Tani Grey on 11-14-2024 Albumin [Mass/Vol] 3.4 g/dL 3.2-5.0 [facility] Serum or plasma alkaline ju sphatase measurementOrdered By: Tani Grey on 11-14-2024 ALP [Catalytic activity/Vol] 55 U/L 45-117 [facility] Serum or plasma calcium jose antonio urement (mass/volume)Ordered By: Tani Grey on 11-14-2024 Calcium [Mass/Vol] 9.0 mg/dL 8.5-10.1 [facility] Serum or plasma creatinine m easurement (mass/volume)Ordered By: Tani Grey on 11-14-2024 Creatinine [Mass/Vol] 1.09 mg/dL High 0.55-1.02 [facility] Comment on above: The validity of the calculated GFR & GFRAA in patients over 70 years has not been determined. Clinical correlation is essential. Serum or plasma thyroid stim ulating hormone (TSH) measurement (units/volume)Ordered By: Tani Grey on 11-14-2024 TSH Qn 2.370 uIU/mL 0.358-3.740 [facility] Serum or plasma urea nitroge n measurement (mass/volume)Ordered By: Tani Grey on 11-14-2024 Urea nitrogen [Mass/Vol] 17 mg/dL 7-18 [facility] Sodium levelOrdered By: Tani Grey 11-14-2024 Sodium [Moles/Vol] 139 mmol/L 136-145 [facility] TSH QnOrdered By: Tani Grey o n 11-14-2024 Thyroid Stimulating Hormone (TSH) 2.370 uIU/mL 0.358-3.740 [facility] Thyroid Stim Hormone (TSH)on 11-14-2024 TSH 2.370 uIU/mL Normal 0.358-3.740 [facility] Comment on above: Performed By: #### L 100.0100, L500.4050, L506.1000, L501.9520 ####[facility] [address] [place], [address] Total proteinOrdered By: Tani Grey on 11-14-2024 Protein [Mass/Vol] 6.3 g/dL Low 6.4-8.2 [facility] Vitamin D,25 Hydroxyon 11-14 Vitamin D 25-OH 53.5 ng/mL Normal [facility] Comment on above: Result Comment: Marlena min D 25(OH) Status Range Deficiency <20 ng/mL (50nmol/L) Insufficiency 20 - 30 ng/mL (50 - 75 nmol/L) Sufficiency 30 - 100 ng/mL (75 - 250 nmol/L) Toxicity >100 ng/mL (>250 nmol/L) Performed By: #### L 100.0100, L500.4050, L506.1000, L501.9520 #### [facility] Laboratory [address] [place], [address] White blood cell (WBC) count Ordered By: Tani Grey on 11-14-2024 WBC (Bld) [#/Vol] 4.7 10*3/uL 4.4-11.0 [facility] Gastroenterology Visit Repor ton 11-06-2024 Gastroenterology Visit Report [facility] Gastroenterology [address] [place] [address] OFFICE VISIT Date of Service: 11/06/24 MR#: [id number] Acct: [id number] Name: MATY HIGH Rep #: [id number] : 1955 Provider: DANIEL Garcia Age/Sex: 69/F Location: [facility] [place] [facility] Status: Signed Intake Vital Signs 09/02/24 15:12 Height 5 ft 2 in Intake Visit Reasons: Test Result Chief Complaint: abdominal pain Financial Services Assistant Required: No Allergies latex Adverse Reaction (Intermediate, Verified 09/02/24 15:14) rash Penicillins Adverse Reaction (Intermediate, Verified 09/02/24 15:14) Rash Have you fallen in the past year?: No Nurse's Note: OV 11.06.24 Pt here for f/u and reports abdominal pain, nausea, vomiting, diarrhea and constipation. Pt states the abdominal pain is worse when doing activities. Continues omeprazole and dicyclomine daily. States the dicyclomine does not seem to be helpful. [facility] Medical History History of GI bleed Wears hearing aid Wears glasses Cancer Easy bruising History of ulceration Chronic constipation Gastric reflux Shortness of breath on exertion Emphysema, unspecified COPD (chronic obstructive pulmonary disease) History of pain when walking History of edema Hyperparathyroidism Abnormal ultrasound of breast Breast pain, right Encounter for screening for malignant neoplasm of lung Tobacco use disorder, continuous Encounter for screening for malignant neoplasm of lung in current smoker with 30 pack year history or greater Sciatic leg pain Wears dentures Post-menopausal Depression Anemia High cholesterol Back pain Chronic cough Hypertension Iron deficiency anemia due to chronic blood loss Osteopenia Invasive ductal carcinoma of right breast SOB (shortness of breath) Arthritis GERD (gastroesophageal reflux disease) Smoking greater than 30 pack years Emphysema lung Bronchitis Asthma Surgical History H/O parathyroidectomy S/P parathyroidectomy S/P lumpectomy, right breast Hx of colonoscopy Hx of fusion of cervical spine Status post right breast lumpectomy History of tonsillectomy and adenoidectomy Hx of colonoscopy ( 2019) H/O tubal ligation Family History Mother Diabetes Hypertension Gastric ulcer Hyperlipidemia CVA (cerebral vascular accident) Father Diabetes COPD (chronic obstructive pulmonary disease) Hypertension Prostate cancer Aunt Breast cancer Social History (Updated 11/06/24 @ 10:45 by Traci Moya LPN) Smoking Status: Current every day smoker tobacco type: cigarettes Tobacco: How many years used: 45 how long ago did patient quit smoking: down to only smoking 4 cigarettes/day second hand exposure: Yes quit status: considering quitting alcohol intake: current alcohol intake frequency: holidays/special occasions only substance use type: marijuana caffeine: Yes what type of physical activity do you participate in: none frequency: does not exercise laine/scientology: None seatbelt use: always do you feel safe at home: Yes additional social history: HPI HPI Chief Complaint: abdominal pain Details: MATY HIGH, is a 69 F who presents to the office today for f/u. PMHx pertinent for DDD, hyperparathyroidism, GERD, osteopenia, and invasive ductal carcinoma BGI established 06.18.24 with complaints of chronic constipation and abd pain EGD 03.24.24; one non bleeding gastric ulcer, erythematous tissue in the gastric antrum Colonoscopy 03.24.24; polyps in the sigmoid and hepatic flexure EGD 10.21.24; - Z-line irregular, 39 cm from the incisors. Biopsied. - Hiatal hernia. - Non-bleeding gastric ulcers with no stigmata of bleeding. Biopsied. - Erythematous duodenopathy. Biopsied. 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 No etiology of abd pain identified. OV 2.13.25 Pt continues to have pelvic pain. Her pain is typically triggered with exertion and relieved with rest. It does not occur after eating. It is not worse during bm or when she needs to have a bm. She describes her pain as feeling like period cramps or labor. She notes that the pain started after she was started on hormone blockers for her breast cancer. Constipation is controlled with miralax daily. ROS Const Constitutional: Positive for fatigue; No fever(s) or weight change ENT ENT: No difficulty swallowing Gastro GI: Positive for abdominal pain, bloating, constipation, diarrhea, heartburn, excessive flatus, nausea/dyspepsia and vomiting; No belching, change in bowel habits, change in stool character, coffee ground emesis, cramping, difficulty swallowing, feeling full ear (more content not included)... Normal [facility] [id number]-[id number] DOrdered By: Norman Brothers on 10-23-2024 Vitamin D 25-Hydroxy 43.2 ng/mL [facility] Comment on above: Vitamin D 25(OH) Sta tus Range Deficiency <20 ng/mL (50nmol/L) Insufficiency 20 - 30 ng/mL (50 - 75 nmol/L) Sufficiency 30 - 100 ng/mL (75 - 250 nmol/L) Toxicity >100 ng/mL (>250 nmol/L) Blood urea nitrogen (BUN)/cr eatinine ratioOrdered By: Radha Brothers on 10-23-2024 Urea nitrogen/Creatinine [Mass ratio] 15.6 mg/mg 07-13 [facility] CBC-Complete Blood Cnt No Di ffon 10-23-2024 Erythrocyte distribution width (RBC) [Ratio] 16.1 % High 11.6-14.6 [facility] Comment on above: Performed By: #### L 506.1000, L100.0500, L500.3600 ####[facility] [address], [address] Hematocrit (Bld) [Volume fraction] 28.3 % Low 37-47 [facility] Comment on above: Performed By: #### L 506.1000, L100.0500, L500.3600 ####[facility] [address] [place], [address] Hemoglobin (Bld) [Mass/Vol] 8.1 g/dL Low 12.0-15.0 [facility] Comment on above: Performed By: #### L 506.1000, L100.0500, L500.3600 ####[facility] [address] [place], [address] MCH (RBC) [Entitic mass] 20.7 pg Low 27.0-32.0 [facility] Comment on above: Performed By: #### L 506.1000, L100.0500, L500.3600 ####[facility] [address] [place], [address] MCHC (RBC) [Mass/Vol] 28.6 g/dL Low 32-36 [facility] Comment on above: Performed By: #### L 506.1000, L100.0500, L500.3600 ####[facility] [address] [place], [address] MCV (RBC) [Entitic vol] 72.4 fL Low 81-99 [facility] Comment on above: Performed By: #### L 506.1000, L100.0500, L500.3600 ####[facility] [address] [place], [address] Platelet mean volume (Bld) [Entitic vol] 10.8 fL Normal 6.2-12.0 [facility] Comment on above: Performed By: #### L 506.1000, L100.0500, L500.3600 ####[facility] [address] [place], [address] Platelets (Bld) [#/Vol] 280 10*3/uL Normal 150-450 [facility] Comment on above: Performed By: #### L 506.1000, L100.0500, L500.3600 ####[facility] [address] [place], [address] RBC (Bld) [#/Vol] 3.91 10*6/uL Low 4.2-5.4 [facility] Comment on above: Performed By: #### L 506.1000, L100.0500, L500.3600 ####[facility] [address] [place], [address] RDW SD 41.6 fl Normal 35.1-43.9 [facility] Comment on above: Performed By: #### L 506.1000, L100.0500, L500.3600 ####[facility] [address] [place], [address] WBC (Bld) [#/Vol] 4.5 10*3/uL Normal 4.4-11.0 [facility] Comment on above: Performed By: #### L 506.1000, L100.0500, L500.3600 ####[facility] [address] [place], [address] Carbon dioxide measurementOr dered By: Radha Brothers on 10-23-2024 CO2 [Moles/Vol] 27.0 mmol/L 21.0-32.0 [facility] Chloride measurementOrdered By: Radha Brothers on 10-23-2024 Chloride [Moles/Vol] 110 mmol/L High 98-107 [facility] Erythrocyte distribution wid th ratioOrdered By: Radha Brothers on 10-23-2024 Erythrocyte distribution width (RBC) [Ratio] 16.1 % High 11.6-14.6 [facility] Erythrocyte distribution wid th standard deviationOrdered By: Radha Brothers on 10-23-2024 Erythrocyte distribution width (RBC) [Entitic vol] 41.6 fL 35.1-43.9 [facility] Estimated glomerular filtrat ion rate (GFR) AmericanOrdered By: Radha Brothers on 10-23-2024 Estimated GFR (MDRD) Amer 74 mL/min >60 [facility] Comment on above: GFR Calc Glomerular filtration rate ( GFR) estimationOrdered By: Radha Brothers on 10-23-2024 Estimated GFR (MDRD) Non-Af Amer 61 mL/min >60 [facility] Comment on above: Non- GFR Calc Glucose measurementOrdered B y: Radha Brothers on 10-23-2024 Glucose [Mass/Vol] 102 mg/dL 74-106 [facility] Comment on above: Fasting Glucose resu lt from 100 to 125 mg/dL suggests IMPAIRED HOMEOSTASIS per A.D.A. criteria. Hematocrit Auto (Bld) [Volum e fraction]Ordered By: Radha Brothers on 10-23-2024 Hematocrit (Bld) [Volume fraction] 28.3 % Low 37-47 [facility] Hemoglobin measurementOrdere d By: Radha Brothers on 10-23-2024 Hemoglobin (Bld) [Mass/Vol] 8.1 g/dL Low 12.0-15.0 [facility] MCV (mean corpuscular volume ) determinationOrdered By: Radha Brothers on 10-23-2024 MCV (RBC) [Entitic vol] 72.4 fL Low 81-99 [facility] Mean corpuscular hemoglobin (MCH) determinationOrdered By: Radha Brothers on 10-23-2024 MCH (RBC) [Entitic mass] 20.7 pg Low 27.0-32.0 [facility] Mean corpuscular hemoglobin concentration (MCHC) determinationOrdered By: Radha Brothers on 10-23-2024 MCHC (RBC) [Mass/Vol] 28.6 g/dL Low 32-36 [facility] Mean platelet volume determi nationOrdered By: Radha Brothers on 10-23-2024 Platelet mean volume (Bld) [Entitic vol] 10.8 fL 6.2-12.0 [facility] Phosphorus measurementOrdere d By: Radha Brothers on 10-23-2024 Phosphorus Level 2.2 mg/dL Low 2.5-4.9 [facility] Platelet countOrdered By: Janet Brothers on 10-23-2024 Platelets (Bld) [#/Vol] 280 10*3/uL 150-450 [facility] Potassium measurementOrdered By: Radha Brothers on 10-23-2024 Potassium [Moles/Vol] 3.7 mmol/L 3.5-5.1 [facility] RBC Auto (Bld) [#/Vol]Ordere d By: Radha Brothers on 10-23-2024 RBC (Bld) [#/Vol] 3.91 10*6/uL Low 4.2-5.4 [facility] Renal Profileon 10-23-2024 Albumin [Mass/Vol] 3.7 g/dL Normal 3.2-5.0 [facility] Comment on above: Performed By: #### L 506.1000, L100.0500, L500.3600 ####[facility] [address] [place], [address] BUN/CRE 15.6 RATIO Normal 10-20 [facility] Comment on above: Performed By: #### L 506.1000, L100.0500, L500.3600 ####[facility] [address] [place], [address] CA,Total 9.3 mg/dL Normal 8.5-10.1 [facility] Comment on above: Performed By: #### L 506.1000, L100.0500, L500.3600 ####[facility] [address] [place], [address] Chloride [Moles/Vol] 110 mmol/L High 98-107 [facility] Comment on above: Performed By: #### L 506.1000, L100.0500, L500.3600 ####[facility] [address] [place], [address] CO2 [Moles/Vol] 27.0 mmol/L Normal 21.0-32.0 [facility] Comment on above: Performed By: #### L 506.1000, L100.0500, L500.3600 ####[facility] [address] [place], [address] Creatinine [Mass/Vol] 0.96 mg/dL Normal 0.55-1.02 [facility] Comment on above: Result Comment: The validity of the calculated GFR GFRAA in patients over 70 years has not been determined. Clinical correlation is essential. Performed By: #### L 506.1000, L100.0500, L500.3600 ####[facility] [address] [place], [address] EST GFR - AA 74 mL/min Normal >60 [facility] Comment on above: Result Comment: Afri can Maltese GFR Calc Performed By: #### L 506.1000, L100.0500, L500.3600 ####[facility] [address] [place], [address] GFR/1.73 sq M.predicted among non-blacks MDRD (S/P/Bld) [Vol rate/Area] 61 mL/min/{1.73_m2} Normal >60 [facility] Comment on above: Result Comment: Non- GFR Calc Performed By: #### L 506.1000, L100.0500, L500.3600 ####[facility] [address] [place], [address] Glucose [Mass/Vol] 102 mg/dL Normal 74-106 [facility] Comment on above: Result Comment: Fast ing Glucose result from 100 to 125 mg/dL suggests IMPAIRED HOMEOSTASIS per A.D.A. criteria. Performed By: #### L 506.1000, L100.0500, L500.3600 ####[facility] [address] [place], [address] Phosphate [Mass/Vol] 2.2 mg/dL Low 2.5-4.9 [facility] Comment on above: Performed By: #### L 506.1000, L100.0500, L500.3600 ####[facility] [address] [place], [address] Potassium [Moles/Vol] 3.7 mmol/L Normal 3.5-5.1 [facility] Comment on above: Performed By: #### L 506.1000, L100.0500, L500.3600 ####[facility] [address] [place], [address] Sodium [Moles/Vol] 142 mmol/L Normal 136-145 [facility] Comment on above: Performed By: #### L 506.1000, L100.0500, L500.3600 ####[facility] [address] [place], [address] Urea nitrogen [Mass/Vol] 15 mg/dL Normal - [facility] Comment on above: Performed By: #### L 506.1000, L100.0500, L500.3600 ####[facility] [address] [place], [address] Serum or plasma albumin jose antonio urement (mass/volume)Ordered By: Radha Brothers on 10-23-2024 Albumin [Mass/Vol] 3.7 g/dL 3.2-5.0 [facility] Serum or plasma calcium jose antonio urement (mass/volume)Ordered By: Radha Brothers on 10-23-2024 Calcium [Mass/Vol] 9.3 mg/dL 8.5-10.1 [facility] Serum or plasma creatinine m easurement (mass/volume)Ordered By: Radha Brothers on 10-23-2024 Creatinine [Mass/Vol] 0.96 mg/dL 0.55-1.02 [facility] Comment on above: The validity of the calculated GFR & GFRAA in patients over 70 years has not been determined. Clinical correlation is essential. Serum or plasma urea nitroge n measurement (mass/volume)Ordered By: Radha Brothers on 10-23-2024 Urea nitrogen [Mass/Vol] 15 mg/dL - [facility] Sodium levelOrdered By: Trang Brothers on 10-23-2024 Sodium [Moles/Vol] 142 mmol/L 136-145 [facility] Vitamin D,25 Hydroxyon 10-23 Vitamin D 25-OH 43.2 ng/mL Normal [facility] Comment on above: Result Comment: Marlena min D 25(OH) Status Range Deficiency <20 ng/mL (50nmol/L) Insufficiency 20 - 30 ng/mL (50 - 75 nmol/L) Sufficiency 30 - 100 ng/mL (75 - 250 nmol/L) Toxicity >100 ng/mL (>250 nmol/L) Performed By: #### L 506.1000, L100.0500, L500.3600 ####[facility] [address] [place], [address] White blood cell (WBC) count Ordered By: Radha Brothers on 10-23-2024 WBC (Bld) [#/Vol] 4.5 10*3/uL 4.4-11.0 [facility] Ankle Brachial Indexon 09-30 Ankle Brachial Index [facility] [address] [facility] [place] [address] Ankle Brachial Index 09/30/24 1101 MR#: [id number] Acct: [id number] Name: MATY HIGH Rep #: [id number] : 1955 69 From: López Guillory MD Attending Dr: Dr. Tani Grey MD Status: REG CLI Ordering Dr: Tani Grey MD Date: 09/30/24 Location: [facility] Sex: F C Admitted: Reason For Study: PVD Procedure A bilateral lower extremity continuous wave Doppler with analog waveform analysis and ankle brachial indexes. Left Segmental Pressures Left brachial= 163mmHg. Left posterior tibial artery = 198mmHg. Left dorsalis pedis artery = 196mmHg. Left digit = 144 mmHg. The left dorsalis pedis waveforms are triphasic. The left posterior tibial artery waveforms are triphasic. Right Segmental Pressures Right brachial= 168mmHg. Right posterior tibial artery = 206mmHg. Right dorsalis pedis artery = 203mmHg. Right digit = 167 mmHg. The right dorsalis pedis waveforms are triphasic. The right posterior tibial artery waveforms are triphasic. Indices The right ankle brachial index by the dorsalis pedis is 1.21. The right ankle brachial index by the posterior tibial artery is 1.23. The right digital-brachial index is 0.99. The left ankle brachial index by the dorsalis pedis is 1.17. The left ankle brachial index by the posterior tibial artery is 1.18. The left digital-brachial index is 0.86. VL/Ankle Brachial Index Interpretation Summary Right ORLY 1.23, normal. TBI and Doppler/PVR waveforms of the right ankle normal at rest. Left ORLY 1.18, normal. TBI and Doppler/PVR waveforms of the left ankle normal at rest. ___ Ordering Physician: Tani Grey Chi Referring Physician: TANI GREY CHI, MD Performed By: Afia Ring RVT and Student 09/30/24 1631 Date López Guillory MD CC: Dr. Tani Grey MD Date Dictated: 09/30/24 1101 Date Transcribed: 09/30/24 1631 Data Compiler: Signed Normal [facility] Office Visit Reporton 2023 Office Visit Report [facility] [address] [place] [address] OFFICE VISIT Date of Service: 09/08/24 MR#: [id number] Acct: [id number] Patient: MATY HIGH Rep #: [id number] : 1955 Provider: Bright Wheeler DO Age/Sex: 69/F Location: [facility] Status: Signed Intake Vital Signs 08/26/24 13:59 09/02/24 15:12 Height 5 ft 2 in 5 ft 2 in Weight: 136 lb 9 oz BMI 25.0 BP 165/84 H Blood Pressure Location Lt brachial Position Sitting Respiration 18 Pulse 87 Pulse Source Monitor Temp 98.9 F Pulse Oximetry (%) 97 Oxygen Delivery Method room air Intake Visit Reasons: Pill Cam Chief Complaint: Pelvic pain Allergies latex Adverse Reaction (Intermediate, Verified 09/02/24 15:14) rash Penicillins Adverse Reaction (Intermediate, Verified 09/02/24 15:14) Rash Have you fallen in the past year?: No Office Procedures Procedure Administration Route: PO Administration Location: [facility] Dispensed Units: 1 Capsule Lot Number: [id number] Expiration Date: 06/16/05 Capsule ID Number: [id number] Consent Form Signed: Yes Reason for Pill Capsule Endoscopy: Anemia, abd pain Comments: Pt tolerated procedure well. All questions answered Pill Cam Billing-In Office: [id number] GI TRACT CAPSULE ENDOSCOPY Clinical Quality Measures Falls Risk Screening/Assistive Devices Have you fallen in the past year?: No 09/08/24 164 Date Bright Friend DO Estevan Signature: Date (if applicable) CC: Normal [facility] Radiation Oncology Visiton 1 11-03-2023 Radiation Oncology Visit [facility] [address] [place] [address] OFFICE VISIT Date of Service: 09/02/24 151 MR#: [id number] Acct: [id number] Name: MATY HIGH Rep #: [id number] : 1955 From: Sean Dos Santos DO Age/Sex: 69/F Location: [facility] Status: Signed Intake Vital Signs 02/28/24 10:35 08/26/24 13:59 09/02/24 15:12 Height 5 ft 2 in 5 ft 2 in 5 ft 2 in Weight: 136 lb 9 oz BMI 25.0 BP 165/84 H Blood Pressure Location Lt brachial Position Sitting Respiration 18 Pulse 87 Pulse Source Monitor Temp 98.9 F Temperature Source Temporal Artery Pulse Oximetry (%) 97 Oxygen Delivery Method room air Intake Visit Reasons: 6 MONTH F/U BREAST Is patient in pain?: No Allergies latex Adverse Reaction (Intermediate, Verified 09/02/24 15:14) rash Penicillins Adverse Reaction (Intermediate, Verified 09/02/24 15:14) Rash Medications ???Medication ???Instructions ???Recorded ???Confirmed ???Type albuterol sulfate 90 mcg/actuation 2 puff inhalation Q4H PRN 06/23/20 09/02/24 Rx aerosol inhaler shortness of breath or wheezing #1 device anastrozole 1 mg tablet 1 mg PO DAILY #90 tabs 04/02/23 09/02/24 Rx pravastatin 40 mg tablet 40 mg PO QHS 05/14/23 09/02/24 History budesonide 160 mcg-glycopyr 9 2 inh inhalation BID 12/06/23 09/02/24 History mcg-formot 4.8 mcg/actuation HFA inhaler (Breztri Aerosphere) polysaccharide iron complex 150 mg 150 mg PO QDAY 02/07/24 09/02/24 History iron capsule potassium chloride 20 mEq 20 meq PO QDAY 02/07/24 09/02/24 History tablet,extended release amlodipine 5 mg tablet 5 mg PO DAILY 03/19/24 09/02/24 History bupropion HCl (smoking deter) 150 150 mg PO BID 04/29/24 09/02/24 History mg tablet,12 hr sustained-release(smoking deterrent) acetaminophen 500 mg tablet 500 mg PO Q6H PRN PRN Pain Score 05/13/24 09/02/24 Rx 1-10 #0 tabs cholecalciferol (vitamin D3) 125 125 mcg PO DAILY #30 caps 05/13/24 09/02/24 Rx mcg (5,000 unit) capsule lubiprostone 8 mcg capsule 8 mcg PO BID #60 caps 07/09/24 09/02/24 Rx (Amitiza) omeprazole 40 mg capsule,delayed 40 mg PO BID 3 months #180 caps 07/15/24 09/02/24 Rx release sucralfate 1 gram tablet 1 g PO TID 3 months #270 tabs 07/15/24 09/02/24 Rx dicyclomine 10 mg capsule 10 mg PO BID #30 caps 08/29/24 09/02/24 Rx Have you fallen in the past year?: No PFSH PFSH Medical History History of GI bleed Wears hearing aid Wears glasses Cancer Easy bruising History of ulceration Chronic constipation Gastric reflux Shortness of breath on exertion Emphysema, unspecified COPD (chronic obstructive pulmonary disease) History of pain when walking History of edema Hyperparathyroidism Abnormal ultrasound of breast Breast pain, right Encounter for screening for malignant neoplasm of lung Tobacco use disorder, continuous Encounter for screening for malignant neoplasm of lung in current smoker with 30 pack year history or greater Sciatic leg pain Wears dentures Post-menopausal Depression Anemia High cholesterol Back pain Chronic cough Hypertension Iron deficiency anemia due to chronic blood loss Osteopenia Invasive ductal carcinoma of right breast SOB (shortness of breath) Arthritis GERD (gastroesophageal reflux disease) Smoking greater than 30 pack years Emphysema lung Bronchitis Asthma Home Medications ???Medication ???Instructions ???Recorded ???Last Taken ???Type albuterol sulfate 90 mcg/actuation 2 puff inhalation Q4H PRN 06/23/20 07/04/21 Rx aerosol inhaler shortness of breath or wheezing #1 device anastrozole 1 mg tablet 1 mg PO DAILY #90 tabs 04/02/23 07/11/24 Rx pravastatin 40 mg tablet 40 mg PO QHS 05/14/23 07/11/24 History budesonide 160 mcg-glycopyr 9 2 inh inhalation BID 12/06/23 07/11/24 History mcg-formot 4.8 mcg/actuation HFA inhaler (Breztri Aerosphere) polysaccharide iron complex 150 mg 150 mg PO QDAY 02/07/24 07/11/24 History iron capsule potassium chloride 20 mEq 20 meq PO QDAY 02/07/24 07/11/24 History tablet,extended release amlodipine 5 mg tablet 5 mg PO DAILY 03/19/24 07/11/24 History bupropion HCl (smoking deter) 150 150 mg PO BID 04/29/24 07/11/24 History mg tablet,12 hr sustained-release(smoking deterrent) acetaminophen 500 mg tablet 500 mg PO Q6H PRN PRN Pain Score 05/13/24 Unknown Rx 1-10 #0 tabs cholecalciferol (vitamin D3) 125 125 mcg PO DAILY #30 caps 05/13/24 07/11/24 Rx mcg (5,000 unit) capsule lubiprostone 8 mcg capsule 8 mcg PO BID #60 caps 07/09/24 07/11/24 Rx (Amitiza) omeprazole 40 mg capsule,delayed 40 mg PO BID 3 months #180 caps 07/15/24 Unknown Rx release sucralfate 1 gram tablet 1 g PO TID 3 mon (more content not included)... Normal [facility] Gastroenterology Visit Repor ton 08-29-2024 Gastroenterology Visit Report [facility] [address] [place] [address] OFFICE VISIT Date of Service: 08/29/24 MR#: [id number] Acct: [id number] Name: MATY HIGH Rep #: [id number] : 1955 Provider: DANIEL aGrcia Age/Sex: 69/F Location: [facility] Status: Signed Intake Vital Signs 08/26/24 13:59 Height 5 ft 2 in Weight: 138 lb 1 oz BMI 25.2 BP 166/85 H Blood Pressure Location Lt brachial Position Sitting Respiration 18 Pulse 97 Pulse Source Monitor Temp 98.8 F Temp Source Temporal Pulse Oximetry (%) 95 Oxygen Delivery Method room air Intake Visit Reasons: Per DR GREY Chief Complaint: Pelvic pain Allergies latex Adverse Reaction (Intermediate, Verified 08/26/24 14:01) rash Penicillins Adverse Reaction (Intermediate, Verified 08/26/24 14:01) Rash Have you fallen in the past year?: No Nurse's Note: OV 08.29.24 Pt here for f/u. Pt reports abdominal pain, and N/V. States she experiences N/V when she does anything strenuous. Continue sucralfate, and omeprazole daily. Was not able to start the Amitiza due to cost. States Miralax is working well for her and has a BM daily. Denies blood in stools. [facility] Medical History History of GI bleed Wears hearing aid Wears glasses Cancer Easy bruising History of ulceration Chronic constipation Gastric reflux Shortness of breath on exertion Emphysema, unspecified COPD (chronic obstructive pulmonary disease) History of pain when walking History of edema Hyperparathyroidism Abnormal ultrasound of breast Breast pain, right Encounter for screening for malignant neoplasm of lung Tobacco use disorder, continuous Encounter for screening for malignant neoplasm of lung in current smoker with 30 pack year history or greater Sciatic leg pain Wears dentures Post-menopausal Depression Anemia High cholesterol Back pain Chronic cough Hypertension Iron deficiency anemia due to chronic blood loss Osteopenia Invasive ductal carcinoma of right breast SOB (shortness of breath) Arthritis GERD (gastroesophageal reflux disease) Smoking greater than 30 pack years Emphysema lung Bronchitis Asthma Surgical History H/O parathyroidectomy S/P parathyroidectomy S/P lumpectomy, right breast Hx of colonoscopy Hx of fusion of cervical spine Status post right breast lumpectomy History of tonsillectomy and adenoidectomy Hx of colonoscopy ( 2019) H/O tubal ligation Family History Mother Diabetes Hypertension Gastric ulcer Hyperlipidemia CVA (cerebral vascular accident) Father Diabetes COPD (chronic obstructive pulmonary disease) Hypertension Prostate cancer Aunt Breast cancer Social History Smoking Status: Current every day smoker tobacco type: cigarettes Tobacco: How many years used: 45 how long ago did patient quit smoking: down to only smoking 4 cigarettes/day second hand exposure: Yes alcohol intake: current alcohol intake frequency: holidays/special occasions only substance use type: marijuana caffeine: Yes what type of physical activity do you participate in: none frequency: does not exercise laine/scientology: None seatbelt use: always do you feel safe at home: Yes additional social history: HPI HPI Chief Complaint: Pelvic pain Details: MATY HIGH, is a 69 F who presents to the office today for f/u BGI established 9..24Pt has a PMHx of DDD, hyperparathyroidism, GERD, osteopenia, and invasive ductal carcinoma. She is here to discuss her chronic constipation and increasing lower abdominal pain. She has had constipation for years and remembers being constipated as a child. She takes miralax daily and has a bowel movement about every day. Her bowel movements do not feel complete and she often has tenesmus. Since May 2023 she has been having severe lower abdominal cramping. At first is was only occurring occasionally but now she has multiple episodes per day. This affects her abilities to do ADLs like showering and moving around the house. The pain is low and she is unsure if the pain is gastrointestinal or gynecologic. She has not see an OBGYN in years but has never had issues. She had upper and lower scopes at [facility] in March 2024. EGD 03.24.24; one non bleeding gastric ulcer, erythematous tissue in the gastric antrum Colonoscopy 03.24.24; polyps in the sigmoid and hepatic flexure EGD 07.14.24; - Z-line irregular, 39 cm from the incisors. Biopsied. - Hiatal hernia. - Non-bleeding gastric ulcers with no stigmata of bleeding. Biopsied. - Erythematous duodenopathy. Biopsied. OV 08.29.24 Pt is her (more content not included)... Normal [facility] Low Dose CT Lung Screeningon 08-26-[address] Lung Screening [facility] Imaging Services [address] [place] [id number] Lung Screening MR#: [id number] Acct: [id number] Name: MATY HIGH Rep #: [id number] : 1955 F 69 From: Dae malloy MD PCP: Dr. Tani Grey MD Status: REG [facility] Study: Low Dose CT Lung Screening Date of Exam: 08/26 Exam# [id number] Ordering Dr: Anastacia Diza NP [employer] -C [id number] STUDY: LOW DOSE CT LUNG CANCER SCREENING REASON FOR EXAM: Female, 69 years old. Lung cancer screening -- and gt;20 pk yr hx;current smoker; asymptomtic RADIATION DOSAGE (If Supplied By Facility): CTDIvol = ( 1.59 ) mGy, DLP = ( 53.81 ) mGycm TECHNIQUE: No contrast was administered. Low dose technique was utilized (average mAS-38 and kVp 120). 1.25 mm axial source images with a slice interval of 1.25-mm were reconstructed in lung windows. 2.5 mm axial source images with a slice interval of 2.5-mm were reconstructed in lung windows. 5.0 mm axial source images with a slice interval of 5.0-mm were reconstructed in soft tissue windows. COMPARISON: Comparison is made with prior study dated August 14, 2023. NODULES: No suspicious nodule is seen. Emphysema: Hyperinflation. Stable emphysematous changes in both lungs. Endobronchial lesion: None Aorta: Atherosclerotic plaque formation of the aortic arch and descending thoracic aorta. CORONARY ARTERIES: Coronary artery calcification is seen. Heart: Unremarkable Pulmonary artery: Unremarkable Mediastinal nodes: Unremarkable Other chest and abdominal findings: CT/Low Dose CT Lung Screening IMPRESSION: Lung-RADS category 2 - Continue annual screening with LDCT in 12 months. IMPORTANT NOTES FOR USE: ACR Lung-RADS Version 1.1 Assessment Categories Release Date: 2018 Category: Coded 0-4 bases on nodule(s) with highest degree of suspicion. Negative screen is defined as categories 1 and 2; a positive screen is defined as categories 3 and 4. Category 3 and 4A nodules that are unchanged on interval CT should be coded as category 2, and individuals returned to screening in 12 months. Category 4X: Category 3 or 4 nodules with additional imaging findings that increase the suspicion of lung cancer, such as spiculation, GGN that doubles in size in 1 year, enlarged lymph notes, etc. Category Modifiers: S (significant finding unrelated to lung cancer) Electronically Signed: Dae Love MD at 14:48 EST , CC: JUAN J Diaz; Dr. Tani Grey MD Data Compiler: Signed Normal [facility] Oncology Visit Reporton Oncology Visit Report [facility] [place] [facility] [address] [address] OFFICE VISIT Date of Service: 08/26/24 1359 MR#: [id number] Acct: [id number] Name: MATY HIGH Rep #: [id number] : 1955 From: Anastacia Diaz NP [employer] PROFESSOR -C Age/Sex: 69/F Location: [facility] Status: Signed HPI HPI Reviewed eligibility criteria: 69 year old F with a >20 pack year history (1/2 ppd x 46 years, now 1/4 ppd ). Smoking Status: Current every day smoker Decision Making Engaged in shared decision making visit utilizing a visual aid. Discussed the risks and benefits of lung cancer screening including the total radiation exposure, false positive rate, over diagnosis and potential need for follow-up diagnostic testing all associated with low-dose chest CT. Comorbidities DDD, COPD, ROS Const Denies anorexia, Denies fatigue, Denies headache(s), Denies poor appetite and Denies weight loss ENT Denies headache(s) Card Denies chest pain, Denies dyspnea and Denies palpitations Resp Denies cough, Denies dyspnea, Denies hemoptysis and Denies wheezing GI Reports abdominal pain (Following with GI) Musc Reports system reviewed and no additional complaints, except as documented Neuro Yes system reviewed and no additional complaints, except as documented and No headache(s) Psych Reports system reviewed and no additional complaints, except as documented Endo Reports system reviewed and no additional complaints, except as documented, Denies fatigue and Denies palpitations Nico/Lymph Reports system reviewed and no additional complaints, except as documented Aller/Immun Denies wheezing Exam Const General: not in acute distress Orientation: alert and oriented x3 HENLA Head: normocephalic and atraumatic Neck Neck: supple and no lymphadenopathy noted Resp Effort Inspection: normal respiratory effort and symmetric chest movement Auscultation: Bilateral: Clear to Auscultation Cardio Rate: regular rate Rhythm: regular rhythm Heart Sounds: S1 normal and S2 normal Psych Affect: normal affect Speech and Movement: speech and movement normal Results Results August 26, [address] Lung Screening COMPARISON: Comparison is made with prior study dated August 14, 2023. NODULES: No suspicious nodule is seen. Emphysema: Hyperinflation. Stable emphysematous changes in both lungs. Endobronchial lesion: None Aorta: Atherosclerotic plaque formation of the aortic arch and descending thoracic aorta. CORONARY ARTERIES: Coronary artery calcification is seen. Heart: Unremarkable Pulmonary artery: Unremarkable Mediastinal nodes: Unremarkable Other chest and abdominal findings: IMPRESSION: Lung-RADS category 2 - Continue annual screening with LDCT in 12 months. Intake Vital Signs 07/11/24 06:16 08/26/24 13:59 Height 5 ft 2 in 5 ft 2 in Weight: 138 lb 1 oz BMI 25.2 BP 166/85 H Blood Pressure Location Lt brachial Position Sitting Respiration 18 Pulse 97 Pulse Source Monitor Temp 98.8 F Temp Source Temporal Pulse Oximetry (%) 95 Oxygen Delivery Method room air Intake Visit Reasons: Lung cancer screening Is patient in pain?: No Allergies latex Adverse Reaction (Intermediate, Verified 08/26/24 14:01) rash Penicillins Adverse Reaction (Intermediate, Verified 08/26/24 14:01) Rash Medications ???Medication ???Instructions ???Recorded ???Confirmed ???Type albuterol sulfate 90 mcg/actuation 2 puff inhalation Q4H PRN 06/23/20 08/26/24 Rx aerosol inhaler shortness of breath or wheezing #1 device anastrozole 1 mg tablet 1 mg PO DAILY #90 tabs 04/02/23 08/26/24 Rx pravastatin 40 mg tablet 40 mg PO QHS 05/14/23 08/26/24 History budesonide 160 mcg-glycopyr 9 2 inh inhalation BID 12/06/23 08/26/24 History mcg-formot 4.8 mcg/actuation HFA inhaler (Breztri Aerosphere) polysaccharide iron complex 150 mg 150 mg PO QDAY 02/07/24 08/26/24 History iron capsule potassium chloride 20 mEq 20 meq PO QDAY 02/07/24 08/26/24 History tablet,extended release amlodipine 5 mg tablet 5 mg PO DAILY 03/19/24 08/26/24 History bupropion HCl (smoking deter) 150 150 mg PO BID 04/29/24 08/26/24 History mg tablet,12 hr sustained-release(smoking deterrent) acetaminophen 500 mg tablet 500 mg PO Q6H PRN PRN Pain Score 05/13/24 08/26/24 Rx 1-10 #0 tabs cholecalciferol (vitamin D3) 125 125 mcg PO DAILY #30 caps 05/13/24 08/26/24 Rx mcg (5,000 unit) capsule lubiprostone 8 mcg capsule 8 mcg PO BID #60 caps 07/09/24 08/26/24 Rx (Amitiza) omeprazole 40 mg capsule,delayed 40 mg PO BID 3 months #180 caps 07/15/24 08/26/24 Rx release sucralfate 1 gram tablet 1 g PO TID 3 months #270 tabs 07/15/24 08/26/24 Rx Have you fallen in the past year?: No [facility] Medical Histo (more content not included)... Normal [facility] Lower GI hemoglobin IA Ql (S tl)Ordered By: Tani Grey on 08-25-2024 Stool Occult Blood (DORIS) Positive Abnormal [facility] Stool Occult Blood iFOBon STOB Normal Reference Ran ge = Negative Immunochemical Fecal Occult Blood (iFOBT) method. Hemoccult Stl Ql IA Limitation: Menstrual bleeding, constipation bleeding, bleeding hemorrhoids, and urinary bleeding conditions may interfere with test. Occult Blood A Positive A OCCULT BLOOD POSITIVE Normal [facility] Comment on above: Performed By: #### L 500.4050 #### [facility] Laboratory [address] [place] [address], [id number] DOrdered By: Phan Grey on 08-19-2024 Vitamin D 25-Hydroxy 46.2 ng/mL [facility] Comment on above: Vitamin D 25(OH) Sta tus Range Deficiency <20 ng/mL (50nmol/L) Insufficiency 20 - 30 ng/mL (50 - 75 nmol/L) Sufficiency 30 - 100 ng/mL (75 - 250 nmol/L) Toxicity >100 ng/mL (>250 nmol/L) Absolute neutrophil countOrd ered By: Tani Grey on 08-19-2024 Neutrophils (Bld) [#/Vol] 2.3 10*3/uL 2.0-7.7 [facility] Albumin to globulin ratioOrd ered By: Tani Grey on 08-19-2024 Albumin/Globulin [Mass ratio] 1.3 {ratio} 0.9-2.4 [facility] Basophil percentageOrdered B y: Tani Grey on 08-19-2024 Basophils/100 WBC (Bld) 0.7 % 0-1 [facility] Bilirubin, totalOrdered By: Tani Grey on 08-19-2024 Bilirubin [Mass/Vol] 0.40 mg/dL 0.20-1.00 [facility] Comment on above: For patients on eltr ombopag therapy, use of Dimension Bristol TBIL is not recommended. Blood urea nitrogen (BUN)/cr eatinine ratioOrdered By: Tani Grey on 08-19-2024 Urea nitrogen/Creatinine [Mass ratio] 15.3 mg/mg - [facility] CBC W/Diff, Automatedon 07-26 Absolute Lymph 1.59 X10 3/uL Normal 0.83-4.51 [facility] Comment on above: Performed By: #### L 500.4050 #### [facility] Laboratory [address] [place], [address] Absolute Neut 2.3 X10 3/uL Normal 2.0-7.7 [facility] Comment on above: Performed By: #### L 500.4050 #### [facility] [address] [place], [address] Basophils/100 WBC (Bld) 0.7 % Normal 0-1 [facility] Comment on above: Performed By: #### L [id number] #### [facility] [address] [place], [address] Eosinophils/100 WBC (Bld) 1.8 % Normal 0-5 [facility] Comment on above: Performed By: #### L 500.4050 #### [facility] [address] [place], [address] Erythrocyte distribution width (RBC) [Ratio] 14.8 % High 11.6-14.6 [facility] Comment on above: Performed By: #### L 500.4050 #### [facility] [address] [place], [address] Hematocrit (Bld) [Volume fraction] 30.9 % Low 37-47 [facility] Comment on above: Performed By: #### L 500.4050 #### [facility] [address] [place], [address] Hemoglobin (Bld) [Mass/Vol] 9.3 g/dL Low 12.0-15.0 [facility] Comment on above: Performed By: #### L 500.4050 #### [facility] [address] [place], [address] IG% 0.500 Normal 0.0-0.9 [facility] Comment on above: Result Comment: IG% - Immature Granulocytes (promyelocytes, myelocytes and metamyelocytes) > 1% indicates that a LEFT SHIFT is Present. Performed By: #### L 500.4050 #### [facility] [address] [place], [address] Lymphocytes/100 WBC (Bld) 36.2 % Normal 19-41 [facility] Comment on above: Performed By: #### L 500.4050 #### [facility] [address] [place], [address] MCH (RBC) [Entitic mass] 23.0 pg Low 27.0-32.0 [facility] Comment on above: Performed By: #### L [id number] #### [facility] [address] [place], [address] MCHC (RBC) [Mass/Vol] 30.1 g/dL Low 32-36 [facility] Comment on above: Performed By: #### L 500.4050 #### [facility] [address] [place], [address] MCV (RBC) [Entitic vol] 76.3 fL Low 81-99 [facility] Comment on above: Performed By: #### L [id number] #### [facility] [address] [place], [address] Monocytes/100 WBC (Bld) 7.7 % Normal 0-10 [facility] Comment on above: Performed By: #### L [id number] #### [facility] [address] [place], [address] Neutrophils/100 WBC (Bld) 53.1 % Normal 47-70 [facility] Comment on above: Performed By: #### L 500.4050 #### [facility] [address] [place], [address] Nucleated RBC (Bld) [#/Vol] 0 10*3/uL Normal 0-5 [facility] Comment on above: Performed By: #### L 500.4050 #### [facility] [address] [place], [address] Platelet mean volume (Bld) [Entitic vol] 11.4 fL Normal 6.2-12.0 [facility] Comment on above: Performed By: #### L 500.4050 #### [facility] [address] [place], [address] Platelets (Bld) [#/Vol] 227 10*3/uL Normal 150-450 [facility] Comment on above: Performed By: #### L 500.4050 #### [facility] [address] [place], [address] RBC (Bld) [#/Vol] 4.05 10*6/uL Low 4.2-5.4 [facility] Comment on above: Performed By: #### L 500.4050 #### [facility] [address] [place], [address] RDW SD 41.2 fl Normal 35.1-43.9 [facility] Comment on above: Performed By: #### L 500.4050 #### [facility] [address] [place], [address] WBC (Bld) [#/Vol] 4.4 10*3/uL Normal 4.4-11.0 [facility] Comment on above: Performed By: #### L 500.4050 #### [facility] [address] [place], [address] Carbon dioxide measurementOr dered By: Tani Que on 08-19-2024 CO2 [Moles/Vol] 29.0 mmol/L 21.0-32.0 [facility] Chloride measurementOrdered By: Tani Grey on 08-19-2024 Chloride [Moles/Vol] 106 mmol/L 98-107 [facility] Comprehensive Metabolic Prof ilon 08-19-2024 Albumin [Mass/Vol] 3.7 g/dL Normal 3.2-5.0 [facility] Comment on above: Performed By: #### L 500.4050 #### [facility] [address] [place], [address] Albumin/Globulin [Mass ratio] 1.3 {ratio} Normal 0.9-2.4 [facility] Comment on above: Performed By: #### L 500.4050 #### [facility] [address] [place], [address] ALK P 64 U/L Normal 45-117 [facility] Comment on above: Performed By: #### L 500.4050 #### [facility] [address] [place], [address] ALT [Catalytic activity/Vol] 17 U/L Normal 13-56 [facility] Comment on above: Performed By: #### L 500.4050 #### [facility] [address] [place], [address] AST [Catalytic activity/Vol] 14 U/L Low 15-37 [facility] Comment on above: Performed By: #### L 500.4050 #### [facility] [address] [place], [address] Bilirubin [Mass/Vol] 0.40 mg/dL Normal 0.20-1.00 [facility] Comment on above: Result Comment: For patients on eltrombopag therapy, use of Dimension Bristol TBIL is not recommended. Performed By: #### L 500.4050 #### [facility] [address] [place], [address] BUN/CRE 15.3 RATIO Normal 10-20 [facility] Comment on above: Performed By: #### L 500.4050 #### [facility] [address] [place], [address] CA,Total 9.4 mg/dL Normal 8.5-10.1 [facility] Comment on above: Performed By: #### L 500.4050 #### [facility] [address] [place], [address] Chloride [Moles/Vol] 106 mmol/L Normal 98-107 [facility] Comment on above: Performed By: #### L 500.4050 #### [facility] [address] [place], [address] CO2 [Moles/Vol] 29.0 mmol/L Normal 21.0-32.0 [facility] Comment on above: Performed By: #### L 500.4050 #### [facility] [address] [place], [address] Creatinine [Mass/Vol] 1.37 mg/dL High 0.55-1.02 [facility] Comment on above: Result Comment: The validity of the calculated GFR GFRAA in patients over 70 years has not been determined. Clinical correlation is essential. Performed By: #### L 500.4050 #### [facility] [address] [place], [address] EST GFR - AA 49 mL/min Low >60 [facility] Comment on above: Result Comment: Afri can Maltese GFR Calc Performed By: #### L 500.4050 #### [facility] [address] [place], [address] GAP 4 Low 5-15 [facility] Comment on above: Performed By: #### L 500.4050 #### [facility] [address] [place], [address] GFR/1.73 sq M.predicted among non-blacks MDRD (S/P/Bld) [Vol rate/Area] 41 mL/min/{1.73_m2} Low >60 [facility] Comment on above: Result Comment: Non- GFR Calc Performed By: #### L 500.4050 #### [facility] [address] [place], [address] Globulin (S) [Mass/Vol] 2.9 g/dL Normal 2.2-4.2 [facility] Comment on above: Performed By: #### L 500.4050 #### [facility] [address] [place], [address] Glucose [Mass/Vol] 90 mg/dL Normal 74-106 [facility] Comment on above: Performed By: #### L 500.4050 #### [facility] [address] [place], [address] Potassium [Moles/Vol] 3.9 mmol/L Normal 3.5-5.1 [facility] Comment on above: Performed By: #### L 500.4050 #### [facility] [address] [place], [address] Sodium [Moles/Vol] 139 mmol/L Normal 136-145 [facility] Comment on above: Performed By: #### L 500.4050 #### [facility] [address] [place], [address] T PROT 6.6 g/dL Normal 6.4-8.2 [facility] Comment on above: Performed By: #### L 500.4050 #### [facility] [address] [place], [place], [address] Urea nitrogen [Mass/Vol] 21 mg/dL High 7-18 [facility] Comment on above: Performed By: #### L 500.4050 #### [facility] [address] [place], [place], [address] Eosinophil percentageOrdered By: Tani Grey on 08-19-2024 Eosinophils/100 WBC (Bld) 1.8 % 0-5 [facility] Erythrocyte distribution wid th ratioOrdered By: Tani Grandaok on 08-19-2024 Erythrocyte distribution width (RBC) [Ratio] 14.8 % High 11.6-14.6 [facility] Erythrocyte distribution wid th standard deviationOrdered By: [facility] on 08-19-2024 Erythrocyte distribution width (RBC) [Entitic vol] 41.2 fL 35.1-43.9 [facility] Estimated glomerular filtrat ion rate (GFR) AmericanOrdered By: Tani Grandaok on 08-19-2024 Estimated GFR (MDRD) Amer 49 mL/min Low >60 [facility] Comment on above: GFR Calc Glomerular filtration rate ( GFR) estimationOrdered By: Tani Que on 08-19-2024 Estimated GFR (MDRD) Non-Af Amer 41 mL/min Low >60 [facility] Comment on above: Non- GFR Calc Glucose measurementOrdered B y: Tani Grey on 08-19-2024 Glucose [Mass/Vol] 90 mg/dL 74-106 [facility] Hematocrit Auto (Bld) [Volum e fraction]Ordered By: Tani Que 08-19-2024 Hematocrit (Bld) [Volume fraction] 30.9 % Low 37-47 [facility] Hemoglobin measurementOrdere d By: Tani Que on 08-19-2024 Hemoglobin (Bld) [Mass/Vol] 9.3 g/dL Low 12.0-15.0 [facility] Immature granulocytes/100 WB C Auto (Bld)Ordered By: Tani Grey 08-19-2024 Immature granulocytes/100 WBC (Bld) 0.500 % 0.0-0.9 [facility] Comment on above: IG% - Immature Granu locytes (promyelocytes, myelocytes and metamyelocytes) > 1% indicates that a LEFT SHIFT is Present. Laboratory - Chemistry and C hemistry - challengeOrdered By: Tani Grey on 08-19-2024 AST [Catalytic activity/Vol] 14 U/L Low 15-37 [facility] Lymphocytes Auto (Unsp spec) [#/Vol]Ordered By: Tani Que on 08-19-2024 Lymphocytes (Bld) [#/Vol] 1.59 10*3/uL 0.83-4.51 [facility] Lymphocytes/100 WBC Auto (Un sp spec)Ordered By: Tani Grey on 08-19-2024 Lymphocytes/100 WBC (Bld) 36.2 % 19-41 [facility] MCV (mean corpuscular volume ) determinationOrdered By: Tani Grey on 08-19-2024 MCV (RBC) [Entitic vol] 76.3 fL Low 81-99 [facility] Mean corpuscular hemoglobin (MCH) determinationOrdered By: Tani Grey on 08-19-2024 MCH (RBC) [Entitic mass] 23.0 pg Low 27.0-32.0 [facility] Mean corpuscular hemoglobin concentration (MCHC) determinationOrdered By: Tani Que on 08-19-2024 MCHC (RBC) [Mass/Vol] 30.1 g/dL Low 32-36 [facility] Mean platelet volume determi nationOrdered By: Tani Grey on 08-19-2024 Platelet mean volume (Bld) [Entitic vol] 11.4 fL 6.2-12.0 [facility] Monocyte percentageOrdered B y: Tani Grey on 08-19-2024 Monocytes/100 WBC (Bld) 7.7 % 0-10 [facility] Neutrophil percentageOrdered By: Tani Grey on 08-19-2024 Neutrophils/100 WBC (Bld) 53.1 % 47-70 [facility] Nucleated red blood cell per centageOrdered By: Tani Grey on 08-19-2024 Nucleated RBC/100 WBC (Bld) [Ratio] 0 % 0-5 [facility] Platelet countOrdered By: Carroll Grey on 08-19-2024 Platelets (Bld) [#/Vol] 227 10*3/uL 150-450 [facility] Potassium measurementOrdered By: Tani Grey on 08-19-2024 Potassium [Moles/Vol] 3.9 mmol/L 3.5-5.1 [facility] RBC Auto (Bld) [#/Vol]Ordere d By: Tani Grey on 08-19-2024 RBC (Bld) [#/Vol] 4.05 10*6/uL Low 4.2-5.4 [facility] Serum anion gap measurementO rdered By: Tani Grey on 08-19-2024 Anion gap [Moles/Vol] 4 mmol/L Low 5-15 [facility] Serum globulin measurementOr dered By: Tani Grey on 08-19-2024 Globulin (S) [Mass/Vol] 2.9 g/dL 2.2-4.2 [facility] Serum or plasma alanine jones otransferase (ALT) measurementOrdered By: Tani Grey on 08-19-2024 ALT [Catalytic activity/Vol] 17 U/L 13-56 [facility] Serum or plasma albumin jose antonio urement (mass/volume)Ordered By: Tani Grey 08-19-2024 Albumin [Mass/Vol] 3.7 g/dL 3.2-5.0 [facility] Serum or plasma alkaline ju sphatase measurementOrdered By: Tani Grey 08-19-2024 ALP [Catalytic activity/Vol] 64 U/L 45-117 [facility] Serum or plasma calcium jose antonio urement (mass/volume)Ordered By: Tani Grey on 08-19-2024 Calcium [Mass/Vol] 9.4 mg/dL 8.5-10.1 [facility] Serum or plasma creatinine m easurement (mass/volume)Ordered By: Tani Grey 08-19-2024 Creatinine [Mass/Vol] 1.37 mg/dL High 0.55-1.02 [facility] Comment on above: The validity of the calculated GFR & GFRAA in patients over 70 years has not been determined. Clinical correlation is essential. Serum or plasma urea nitroge n measurement (mass/volume)Ordered By: Tani Grey on 08-19-2024 Urea nitrogen [Mass/Vol] 21 mg/dL High 7-18 [facility] Sodium levelOrdered By: Tani Grey on 08-19-2024 Sodium [Moles/Vol] 139 mmol/L 136-145 [facility] TSH QnOrdered By: Tani Grey o n 08-19-2024 Thyroid Stimulating Hormone (TSH) 3.400 uIU/mL 0.358-3.740 [facility] Thyroid Stim Hormone (TSH)on 08-19-2024 TSH 3.400 uIU/mL Normal 0.358-3.740 [facility] Comment on above: Performed By: #### L 500.4050 #### [facility] [address] [place], [place], [id number] Total proteinOrdered By: Tani Grey on 08-19-2024 Protein [Mass/Vol] 6.6 g/dL 6.4-8.2 [facility] Vitamin D,25 Hydroxyon 08-19 Vitamin D 25-OH 46.2 ng/mL Normal [facility] Comment on above: Result Comment: Marlena min D 25(OH) Status Range Deficiency <20 ng/mL (50nmol/L) Insufficiency 20 - 30 ng/mL (50 - 75 nmol/L) Sufficiency 30 - 100 ng/mL (75 - 250 nmol/L) Toxicity >100 ng/mL (>250 nmol/L) Performed By: #### L 500.4050 #### [facility] [address] [place], [place], [id number] White blood cell (WBC) count Ordered By: Tani Grey on 08-19-2024 WBC (Bld) [#/Vol] 4.4 10*3/uL 4.4-11.0 [facility] SCRN MAMM (CAD)W/MIKE BILATo n 08-18-2024 SCRN MAMM (CAD)W/MIKE BILAT [facility] Imaging Services [address] [place], [place] [id number] [phone] [phone] MAMM (CAD)W/MIKE BILAT MR#: [id number] Acct: [id number] Name: MATY HIGH Rep #: [id number] : 1955 F 69 From: Demetris Barnett MD PCP: Dr. Tani Grey MD Status: REG CLI Study: SCRN MAMM (CAD)W/MIKE BILAT Date of Exam: 07/26 02/14 Exam# [id number] Ordering Dr: Sean Dos Santos DO [id number] MAMMOGRAPHY - BILATERAL SCREENING 3-D TOMOSYNTHESIS REASON FOR EXAM: Female, 69 years old. h/o treated breast cancer -- compare to prior PERTINENT HISTORY: No significant family history. TECHNIQUE: 2-D mammograms and 3-D Tomosynthesis of the breast (s) were performed. CAD was performed. COMPARISON: 08/14/2023 FINDINGS: The breast composition is heterogeneously dense that can obscure small breast masses. Scattered benign calcifications are seen. No dense spiculated masses or suspicious microcalcifications are identified. No architectural distortion is identified. There is no skin thickening or retraction. There has been no significant change since the prior study. No change in lumpectomy changes and scarring in the upper-outer quadrant right breast. BI/SCRN MAMM (CAD)W/MIKE BILAT IMPRESSION: No mammographic signs of malignancy. Routine yearly mammograms recommended. ASSESSMENT CATEGORY: BIRADS Category 2: Benign. A letter regarding these results will be sent to the patient by the facility within 30 days. FOLLOW UP RECOMMENDATION: Yearly follow up mammogram recommended. (A) Approximately 10% of breast cancers are not detected by mammography. A normal mammogram should not delay biopsy of a clinically suspicious abnormality. Electronically Signed: Demetris Barnett MD at 16:33 EST , CC: Dr. Sean Dos Santos DO; Dr. Tani Grey MD Data Compiler: Signed Normal [facility] BACTERIAL VAGINOSIS [facility] 1 Lactobacillus crispatus+gasseri+edward senii + Gardnerella vaginalis + Atopobium vaginae rRNA MANUEL+probe Ql (Vag fld) Negative Normal Negative for bacterial vaginosis [facility] Comment on above: Order Comment: Speci men Type: SWAB Ordering Facility: [facility] Address: [address] [place] [address] Performed By: #### B VAMP, CVTV #### [facility] CLIA [id number] [address] [place] [address] [place] Bacteria Ur Culton 4 Bacteria identified Cx Nom (U) CULTURE, URINE: No growth (<1,000 CFU/ml) Normal [facility] Comment on above: Performed By: #### 6 30-4 #### [facility] CLIA [id number] [address] [place] [address] [place] GISELL/TRICHOMONAS NAATon 1 C. glabrata RNA MANUEL+probe Ql (Vag fld) Negative Normal Negative for Gisell glabrata [facility] Comment on above: Order Comment: Speci men Type: SWAB Ordering Facility: [facility] Address: [address] [place] [address] Performed By: #### B VAMP, CVTV #### [facility] CLIA [id number] [address] [place] [address] [place] Gisell sp DNA MANUEL+probe Ql (Vag fld) Negative Normal Negative for Gisell species [facility] Comment on above: Order Comment: Speci men Type: SWAB Ordering Facility: [facility] Address: [address] [place] [address] Performed By: #### B VAMP, CVTV #### [facility] CLIA [id number] [address] [place] [address] [place] T. vaginalis DNA MANUEL+probe Ql (Unsp spec) Negative Normal Negative for Trichomonas vaginalis by amplification [facility] Comment on above: Order Comment: Speci men Type: SWAB Ordering Facility: [facility] Address: [address] [place], [place] [id number] Performed By: #### B EDNA, CVTV #### [facility] CLIA [id number] [address] [place] [address] [place] CNOVon 06-27-2024 CNOV Office Visit (OBGYWM ) ----- MATY HIGH ([id number]) 1955 F Date Time Provider Department 06/27/24 2:30 PM KIANNA TOBAR OBGYWM During your visit today, we recorded the following information about you: Blood pressure Weight 144/78 62 kg Kianna Tobar, NIK.AIRPLANE AND ENGINE INSPECTOR 06/27/2024 3:05 PM Signed Patient declined plumber's assistant. Maty High is a 69 year old female who presents for problem visit pelvic pain for 1 year(s). HPI: Maty has been having pelvic pain across her lower abdomen for about 1 year. It worsens with physical activity. She has to lay down for relief. Rates it as an 8-9/10 at its worse. No bleeding or discharge. History of breast cancer. 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 OB History No obstetric history on file. 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 Comments: Sexual Activity: Not Asked; No partner data on record Contraception: No contraception data on record PAST MEDICAL HISTORY Diagnosis Date - Arthritis - Asthma - COPD (chronic obstructive pulmonary disease) (HCC) - HTN (hypertension) - Hypercholesteremia PAST SURGICAL HISTORY Procedure Laterality Date - ANTERIOR INTERBODY FUSION, CERVICAL 2002 - COLONOSCOP W/ OR W/O [facility] SPEC 10/15/2013 Colonoscopy - COLONOSCOPY AND POLYPECTOMY 1999's - S TUBAL LIGATION late 70's - TONSILLECTOMY HX FAMILY HISTORY Problem Relation Age of Onset - Diabetes Mother - Diabetes Father - Hypertension Mother - Stroke Mother - Diabetes Brother - Emphysema Father Social History Tobacco Use - Smoking status: Every Day Types: Cigarettes - Smokeless tobacco: Never - Tobacco comments: Pt down to 1or 2 cigarettes a day Substance Use Topics - Alcohol use: Yes Comment: occasional wine - Drug use: No Current Outpatient Medications Medication Sig - citalopram hydrobromide (CELEXA) 10 mg tablet Take 10 mg by mouth once daily. - atorvastatin (LIPITOR) 20 mg tablet Take 20 mg by mouth once daily. - Cholecalciferol, Vitamin D3, (VITAMIN D) 25 mcg (1,000 unit) cap Take 1,000 Units by mouth once daily. - tiotropium Br/olodaterol HCl (STIOLTO RESPIMAT INHALATION) Inhale 2.5 mcg as instructed. - pantoprazole DR (PROTONIX) 40 mg tablet Take 40 mg by mouth once daily. - polyethylene glycol 3350 (PURELAX ORAL) Take by mouth once daily. One capful daily - BENEFIBER, GUAR GUM, ORAL Take by mouth once daily. - celecoxib (CELEBREX) 200 mg capsule Take 200 mg by mouth once daily. (Patient not taking: Reported on 01/26/2021 ) - fenofibrate nanocrystallized (TRICOR) 145 mg tablet Take 145 mg by mouth once daily. (Patient not taking: Reported on 01/26/2021 ) - fluticasone-salmeterol (ADVAIR DISKUS) 250-50 mcg/dose DsDv Inhale 1 Puff as instructed every 12 hours. (Patient not taking: Reported on 01/26/2021 ) - venlafaxine XR (EFFEXOR XR) 37.5 mg 24 hr capsule Take 37.5 mg by mouth once daily. - albuterol HFA (PROVENTIL HFA) 90 mcg/actuation inhaler Inhale 2 Puffs as instructed every 4 hours as needed for Wheezing/Shortness of Breath. - lisinopril 10 mg tablet Take 20 mg by mouth once daily. - hydrochlorothiazide 25 mg tablet Take 25 mg by mouth once daily. (Patient not taking: Reported on 01/26/2021 ) - pravastatin 20 mg tablet Take 20 mg by mouth once daily. (Patient not taking: Reported on 01/26/2021 ) - meloxicam 7.5 mg tablet Take 7.5 mg by mouth once daily. (Patient not taking: Reported on 01/26/2021 ) No current facility-administered medications for this visit. 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 As applicable, any other physician, advance practice provider, medical student, or other health professional student that will be observing or involved in the sensitive examination for educational or training purposes was discussed with the Patient or Authorized Buckle Stapler. The Patient or Authorized Buckle Stapler has agreed to proceed with the sensitive examination. (Sensitive examination includes inspection and/or palpation of the breasts, pelvis, prostate and anorectal regions). EXAM: BP 144/78 Wt 136 lb 9.6 oz (62.0kg) GENERAL: pleasant, female in no apparent distress HEENT: Normocephalic, atraumatic, mucus membranes moist, and no lesions CHEST: Normal inspiratory effort ABDOMEN: soft, non-tender, and no masses PELVIC: external genitalia atrophic, normal Bartholin's glands, urethra, Fruita's glands, no vulvar lesions, no cervical lesions, goo (more content not included)... Normal [facility] PAP TESTon 06-27-2024 ADEQUACY Satisfactory for interpretation. Normal [facility] Comment on above: Order Comment: Speci men Type: FLUID SPECIMEN Ordering Facility: [facility] Address: [address] [place] [address] Performed By: #### L [id number] #### [facility] CLIA [id number] [address] [place] [address] [place] [facility] CLIA [id number] [address] [place], [place] [address] [place] [address] [place] CASE REPORT Normal [facility] Comment on above: Order Comment: Speci men Type: FLUID SPECIMEN Ordering Facility: [facility] Address: [address] [place] [address] Result Comment: Gyne cologic Cytology Report Case: [id number] Authorizing Provider: Kianna Tobar APRN.AIRPLANE AND ENGINE INSPECTOR Collected: 06/27/2024 03:17 PM Ordering Location: OB/Gynecology Received: 06/27/2024 04:42 PM First Screen: Gmitro, Rui, CT, ASCP Specimen: Pap Test, ThinPrep, Cervix Performed By: #### L [id number] #### [facility] CLIA [id number] [address] [place] [address] [place] [facility] CLIA [id number] [address] [place] [address] [place] CLINICAL HISTORY, CYTOLOGY, COMM[employer]ILDING ARCHITECT Post Menopausal Normal [facility] Comment on above: Order Comment: Speci men Type: FLUID SPECIMEN Ordering Facility: [facility] Address: [address] [place] [address] Performed By: #### L [id number] #### [facility] CLIA [id number] [address] [place] [address] [place] [facility] CLIA [id number] [address] [place] [address] [place] CYTOLOGY PAP OTHER INT Atrophic specimen Normal [facility] Comment on above: Order Comment: Speci men Type: FLUID SPECIMEN Ordering Facility: [facility] Address: [address] [place] [address] Performed By: #### L [id number] #### [facility] CLIA [id number] [address] [place] [address] [place] [facility] CLIA [id number] [address] [place] [address] [place] [facility] Normal [facility] Comment on above: Order Comment: Speci men Type: FLUID SPECIMEN Ordering Facility: [facility] Address: [address] [place] [address] Result Comment: Tech nical component, unarmed security officer screening performed at [facility], [id number] [place], [place] [id number] CLIA# [id number] Diagnostic interpretation performed at [facility], [address] [place], [place] [id number] CLIA# [id number] Clinical Research Administrator: Juwan Sanchez M.D. Performed By: #### L [id number] #### [facility] CLIA [id number] [address] [place] [address] [place] [facility] CLIA [id number] [address] [place] [address] [place] HPV REFLEX HPV if Atypical Normal [facility] Comment on above: Order Comment: Speci men Type: FLUID SPECIMEN Ordering Facility: [facility] Address: [address] [place] [address] Performed By: #### L [id number] #### [facility] CLIA [id number] [address] [place] [address] [place] [facility] CLIA [id number] [address] [place] [address] [place] INTERPRETATION, CYTOLOGY, COMMER[employer] BUILDING ARCHITECT Normal [facility] Comment on above: Order Comment: Speci men Type: FLUID SPECIMEN Ordering Facility: [facility] Address: [address] [place] [address] Result Comment: Nega tive for intraepithelial lesion or malignancy. Performed By: #### L [id number] #### [facility] CLIA [id number] [address] [place] [address] [place] [facility] CLIA [id number] [address] [place] [address] [place] PAP DISCLAIMER COMMENT The Pap Smear is a screening test for cervical cancer. False negative results occur with all screening tests, emphasizing the need for rescreening at recommended intervals, and clinical correlation. Normal [facility] Comment on above: Order Comment: Speci men Type: FLUID SPECIMEN Ordering Facility: [facility] Address: [address] [place] [address] Performed By: #### L [id number] #### [facility] CLIA [id number] [address] [place] [address] [place] [facility] CLIA [id number] [facility] [place] [address] [place] PAP CIRCUS SUPERVISOR COMMENT This specimen has be en analyzed by the ThinPrep Imaging System, an automated imaging and review system, which assists the laboratory in evaluating cells on ThinPrep Pap tests. Following automated imaging, selected rg from every slide are reviewed by a unarmed security officer. Normal [facility] Comment on above: Order Comment: Speci men Type: FLUID SPECIMEN Ordering Facility: [facility] Address: [address] [place] [address] Performed By: #### L [id number] #### [facility] CLIA [id number] [address] [place] [address] [place] [facility] CLIA [id number] [address] [place] [address] [place] Estimated glomerular filtrat ion rate (GFR) AmericanOrdered By: Anastacia Diaz on 06-04-2024 Estimated GFR (MDRD) Amer 43 mL/min Low >60 [facility] Comment on above: GFR Calc Absolute lymphocyte countOrd ered By: Isauro Kebede on 01-27-2024 Lymphocytes Auto (Unsp spec) [#/Vol] 0.84 10*3/uL 0.83-4.51 [facility] Automated lymphocyte count a s percentage of total leukocytesOrdered By: Isauro Kebede on 01-27-2024 Lymphocytes/100 WBC Auto (Unsp spec) 10.4 % 19-41 [facility] Basophil percentageOrdered B y: Isauro Kebede on 01-27-2024 Basophils/100 WBC (Bld) 0.2 % 0-1 [facility] Chloride [Moles/Vol] 106 mmol/L 98-107 [facility] Eosinophils/100 WBC (Bld) 0.1 % 0-5 [facility] Glucose [Mass/Vol] 111 mg/dL 74-106 [facility] Comment on above: Fasting Glucose resu lt from 100 to 125 mg/dL suggests IMPAIRED HOMEOSTASIS per A.D.A. criteria. Hemoglobin (Bld) [Mass/Vol] 10.7 g/dL 12.0-15.0 [facility] Monocytes/100 WBC (Bld) 8.0 % 0-10 [facility] Neutrophils (Bld) [#/Vol] 6.6 10*3/uL 2.0-7.7 [facility] Neutrophils/100 WBC (Bld) 81.1 % 47-70 [facility] Potassium [Moles/Vol] 3.5 mmol/L 3.5-5.1 [facility] Sodium [Moles/Vol] 136 mmol/L 136-145 [facility] WBC (Bld) [#/Vol] 8.1 10*3/uL 4.4-11.0 [facility] Determination of erythrocyte mean corpuscular volume (MCV)Ordered By: Isauro Kebede on 01-27-2024 MCV (RBC) [Entitic vol] 77.8 fL 81-99 [facility] Erythrocyte distribution wid th ratioOrdered By: Isauro Kebede on 01-27-2024 Erythrocyte distribution width (RBC) [Ratio] 15.1 % 11.6-14.6 [facility] Erythrocyte distribution wid th standard deviationOrdered By: Isauro Kebede on 01-27-2024 Erythrocyte distribution width (RBC) [Entitic vol] 42.5 fL 35.1-43.9 [facility] Hematocrit Auto (Bld) [Volum e fraction]Ordered By: Isauro Kebede on 01-27-2024 Hematocrit (Bld) [Volume fraction] 33.9 % 37-47 [facility] Immature granulocytes/100 WB C Auto (Bld)Ordered By: Isauro Kebede on 01-27-2024 Immature granulocytes/100 WBC (Bld) 0.200 % 0.0-0.9 [facility] Comment on above: IG% - Immature Granu locytes (promyelocytes, myelocytes and metamyelocytes) > 1% indicates that a LEFT SHIFT is Present. Laboratory - Chemistry and C hemistry - challengeOrdered By: Isauor Kebede on 01-27-2024 CO2 [Moles/Vol] 23.0 mmol/L 21.0-32.0 [facility] Urea nitrogen/Creatinine [Mass ratio] 16.3 mg/mg 10-20 [facility] Laboratory - Hematology and Cell countsOrdered By: Isauro Kebede on 01-27-2024 MCH (RBC) [Entitic mass] 24.5 pg 27.0-32.0 [facility] MCHC (RBC) [Mass/Vol] 31.6 g/dL 32-36 [facility] Nucleated RBC/100 WBC (Bld) [Ratio] 0 % 0-5 [facility] Platelet mean volume (Bld) [Entitic vol] 10.5 fL 6.2-12.0 [facility] Platelets (Bld) [#/Vol] 176 10*3/uL 150-450 [facility] No Panel InformationOrdered By: Isauro Kebede on 01-27-2024 Estimated Creatinine Clearance Calc 47.77 ml/min [facility] Estimated GFR (MDRD) Amer 72 mL/min >60 [facility] Comment on above: GFR Calc Estimated GFR (MDRD) Non-Af Amer 60 mL/min >60 [facility] Comment on above: Non- GFR Calc RBC Auto (Bld) [#/Vol]Ordere d By: Isauro Kebede on 01-27-2024 RBC (Bld) [#/Vol] 4.36 10*6/uL 4.2-5.4 [facility] Serum or plasma calcium jose antonio urement (mass/volume)Ordered By: Isauro Kebede on 01-27-2024 Calcium [Mass/Vol] 9.2 mg/dL 8.5-10.1 [facility] Serum or plasma creatinine m easurement (mass/volume)Ordered By: Isauro Kebede on 01-27-2024 Creatinine [Mass/Vol] 0.98 mg/dL 0.55-1.02 [facility] Comment on above: The validity of the calculated GFR & GFRAA in patients over 70 years has not been determined. Clinical correlation is essential. Serum or plasma urea nitroge n measurement (mass/volume)Ordered By: Isauro Kebede on 01-27-2024 Urea nitrogen [Mass/Vol] 16 mg/dL 7-18 [facility] Thin prep Papanicolaou smear with manual screeningOrdered By: Isauro Kebede on 01-27-2024 Thin prep Papanicolaou smear with manual screening 7 5-15 [facility] Absolute lymphocyte countOrd ered By: Marcella Griffin on 01-26-2024 Lymphocytes Auto (Unsp spec) [#/Vol] 0.97 10*3/uL 0.83-4.51 [facility] Automated lymphocyte count a s percentage of total leukocytesOrdered By: Marcella Griffin on 01-26-2024 Lymphocytes/100 WBC Auto (Unsp spec) 11.3 % 19-41 [facility] Basophil percentageOrdered B y: Marcella Griffin on 01-26-2024 Basophil percentage 2.0 mg/dL 2.5-4.9 [facility] Basophils/100 WBC (Bld) 0.1 % 0-1 [facility] Chloride [Moles/Vol] 105 mmol/L 98-107 [facility] Eosinophils/100 WBC (Bld) 0.0 % 0-5 [facility] Glucose [Mass/Vol] 108 mg/dL 74-106 [facility] Comment on above: Fasting Glucose resu lt from 100 to 125 mg/dL suggests IMPAIRED HOMEOSTASIS per A.D.A. criteria. Hemoglobin (Bld) [Mass/Vol] 10.3 g/dL 12.0-15.0 [facility] Monocytes/100 WBC (Bld) 8.0 % 0-10 [facility] Neutrophils (Bld) [#/Vol] 6.9 10*3/uL 2.0-7.7 [facility] Neutrophils/100 WBC (Bld) 80.1 % 47-70 [facility] Potassium [Moles/Vol] 3.5 mmol/L 3.5-5.1 [facility] Sodium [Moles/Vol] 137 mmol/L 136-145 [facility] WBC (Bld) [#/Vol] 8.6 10*3/uL 4.4-11.0 [facility] Determination of erythrocyte mean corpuscular volume (MCV)Ordered By: Marcella Griffin on 01-26-2024 MCV (RBC) [Entitic vol] 78.5 fL 81-99 [facility] Erythrocyte distribution wid th ratioOrdered By: Marcella Griffin on 01-26-2024 Erythrocyte distribution width (RBC) [Ratio] 15.2 % 11.6-14.6 [facility] Erythrocyte distribution wid th standard deviationOrdered By: Marcella Griffin on 01-26-2024 Erythrocyte distribution width (RBC) [Entitic vol] 43.3 fL 35.1-43.9 [facility] Hematocrit Auto (Bld) [Volum e fraction]Ordered By: Marcella Griffin on 01-26-2024 Hematocrit (Bld) [Volume fraction] 32.5 % 37-47 [facility] Immature granulocytes/100 WB C Auto (Bld)Ordered By: Marcella Griffin on 01-26-2024 Immature granulocytes/100 WBC (Bld) 0.500 % 0.0-0.9 [facility] Comment on above: IG% - Immature Granu locytes (promyelocytes, myelocytes and metamyelocytes) > 1% indicates that a LEFT SHIFT is Present. Laboratory - Chemistry and C hemistry - challengeOrdered By: Marcella Griffin on 01-26-2024 CO2 [Moles/Vol] 27.0 mmol/L 21.0-32.0 [facility] Urea nitrogen/Creatinine [Mass ratio] 15.2 mg/mg 10-20 [facility] Laboratory - Hematology and Cell countsOrdered By: Marcella Griffin on 01-26-2024 MCH (RBC) [Entitic mass] 24.9 pg 27.0-32.0 [facility] MCHC (RBC) [Mass/Vol] 31.7 g/dL 32-36 [facility] Nucleated RBC/100 WBC (Bld) [Ratio] 0 % 0-5 [facility] Platelet mean volume (Bld) [Entitic vol] 10.7 fL 6.2-12.0 [facility] Platelets (Bld) [#/Vol] 169 10*3/uL 150-450 [facility] No Panel InformationOrdered By: Marcella Griffin on 01-26-2024 Estimated Creatinine Clearance Calc 46.07 ml/min [facility] Estimated GFR (MDRD) Amer 67 mL/min >60 [facility] Comment on above: GFR Calc Estimated GFR (MDRD) Non-Af Amer 55 mL/min >60 [facility] Comment on above: Non- GFR Calc RBC Auto (Bld) [#/Vol]Ordere d By: Marcella Griffin on 01-26-2024 RBC (Bld) [#/Vol] 4.14 10*6/uL 4.2-5.4 [facility] Serum or plasma calcium jose antonio urement (mass/volume)Ordered By: Marcella Griffin on 01-26-2024 Calcium [Mass/Vol] 9.0 mg/dL 8.5-10.1 [facility] Serum or plasma creatinine m easurement (mass/volume)Ordered By: Marcella Griffin on 01-26-2024 Creatinine [Mass/Vol] 1.05 mg/dL 0.55-1.02 [facility] Comment on above: The validity of the calculated GFR & GFRAA in patients over 70 years has not been determined. Clinical correlation is essential. Serum or plasma urea nitroge n measurement (mass/volume)Ordered By: Marcella Griffin on 01-26-2024 Urea nitrogen [Mass/Vol] 16 mg/dL 7-18 [facility] Thin prep Papanicolaou smear with manual screeningOrdered By: Marcella Griffin on 01-26-2024 Thin prep Papanicolaou smear with manual screening 3.4 g/dL 3.2-5.0 [facility] Basophil percentageOrdered B y: Tani Grey on 12-26-2023 Basophil percentage 2.0 mg/dL 2.5-4.9 [facility] Chloride [Moles/Vol] 107 mmol/L 98-107 [facility] Glucose [Mass/Vol] 98 mg/dL 74-106 [facility] Potassium [Moles/Vol] 4.2 mmol/L 3.5-5.1 [facility] Sodium [Moles/Vol] 139 mmol/L 136-145 [facility] Laboratory - Chemistry and C hemistry - challengeOrdered By: Tani Grey on 12-26-2023 CO2 [Moles/Vol] 30.0 mmol/L 21.0-32.0 [facility] Urea nitrogen/Creatinine [Mass ratio] 14.0 mg/mg 10-20 [facility] No Panel InformationOrdered By: Tani Grey on 12-26-2023 Estimated GFR (MDRD) Amer 57 mL/min >60 [facility] Comment on above: GFR Calc Estimated GFR (MDRD) Non-Af Amer 47 mL/min >60 [facility] Comment on above: Non- GFR Calc Serum or plasma calcium jose antonio urement (mass/volume)Ordered By: Tani Grey on 12-26-2023 Calcium [Mass/Vol] 9.7 mg/dL 8.5-10.1 [facility] Serum or plasma creatinine m easurement (mass/volume)Ordered By: Tani Grey on 12-26-2023 Creatinine [Mass/Vol] 1.21 mg/dL 0.55-1.02 [facility] Comment on above: The validity of the calculated GFR & GFRAA in patients over 70 years has not been determined. Clinical correlation is essential. Serum or plasma urea nitroge n measurement (mass/volume)Ordered By: Tani Grey on 12-26-2023 Urea nitrogen [Mass/Vol] 17 mg/dL 7-18 [facility] Thin prep Papanicolaou smear with manual screeningOrdered By: Tani Grey on 12-26-2023 Protein (U) [Mass/Vol] 61.4 mg/dL 0.0-11.8 [facility] Thin prep Papanicolaou smear with manual screening 3.7 g/dL 3.2-5.0 [facility] Urine creatinine measurement (mass/volume)Ordered By: Tani Grey on 12-26-2023 Creatinine (U) [Mass/Vol] 268.00 mg/dL NO RANGE EST. [facility] Urine protein/creatinine mas s ratioOrdered By: Tani Grey on 12-26-2023 Protein/Creatinine (U) [Mass ratio] 229 mg/g CRE 0-200 [facility] Absolute lymphocyte countOrd ered By: Anastacia Diaz on 12-06-2023 Lymphocytes Auto (Unsp spec) [#/Vol] 1.41 10*3/uL 0.83-4.51 [facility] Automated lymphocyte count a s percentage of total leukocytesOrdered By: Anastacia Diaz on 12-06-2023 Lymphocytes/100 WBC Auto (Unsp spec) 23.7 % 19-41 [facility] Basophil percentageOrdered B y: Anastacia Diaz on 12-06-2023 Basophils/100 WBC (Bld) 0.5 % 0-1 [facility] Bilirubin [Mass/Vol] 0.50 mg/dL 0.20-1.00 [facility] Comment on above: For patients on eltr ombopag therapy, use of Dimension [place] TBIL is not recommended. Chloride [Moles/Vol] 106 mmol/L 98-107 [facility] Eosinophils/100 WBC (Bld) 1.7 % 0-5 [facility] Glucose [Mass/Vol] 118 mg/dL 74-106 [facility] Comment on above: Fasting Glucose resu lt from 100 to 125 mg/dL suggests IMPAIRED HOMEOSTASIS per A.D.A. criteria. Hemoglobin (Bld) [Mass/Vol] 10.8 g/dL 12.0-15.0 [facility] Monocytes/100 WBC (Bld) 5.9 % 0-10 [facility] Neutrophils (Bld) [#/Vol] 4.0 10*3/uL 2.0-7.7 [facility] Neutrophils/100 WBC (Bld) 67.7 % 47-70 [facility] Potassium [Moles/Vol] 3.4 mmol/L 3.5-5.1 [facility] Protein [Mass/Vol] 6.8 g/dL 6.4-8.2 [facility] Sodium [Moles/Vol] 142 mmol/L 136-145 [facility] WBC (Bld) [#/Vol] 5.9 10*3/uL 4.4-11.0 [facility] Determination of erythrocyte mean corpuscular volume (MCV)Ordered By: Anastacia Diaz on 12-06-2023 MCV (RBC) [Entitic vol] 81.9 fL 81-99 [facility] Erythrocyte distribution wid th ratioOrdered By: Anastacia Diaz on 12-06-2023 Erythrocyte distribution width (RBC) [Ratio] 14.5 % 11.6-14.6 [facility] Erythrocyte distribution wid th standard deviationOrdered By: Anastacia Diaz on 12-06-2023 Erythrocyte distribution width (RBC) [Entitic vol] 42.5 fL 35.1-43.9 [facility] Hematocrit Auto (Bld) [Volum e fraction]Ordered By: Anastacia Diaz on 12-06-2023 Hematocrit (Bld) [Volume fraction] 34.3 % 37-47 [facility] Immature granulocytes/100 WB C Auto (Bld)Ordered By: Anastacia Diaz on 12-06-2023 Immature granulocytes/100 WBC (Bld) 0.500 % 0.0-0.9 [facility] Comment on above: IG% - Immature Granu locytes (promyelocytes, myelocytes and metamyelocytes) > 1% indicates that a LEFT SHIFT is Present. Laboratory - Chemistry and C hemistry - challengeOrdered By: Anastacia Diaz on 12-06-2023 Albumin/Globulin [Mass ratio] 1.2 {ratio} 0.9-2.4 [facility] ALP [Catalytic activity/Vol] 71 U/L 45-117 [facility] ALT [Catalytic activity/Vol] 20 U/L 13-56 [facility] CO2 [Moles/Vol] 30.0 mmol/L 21.0-32.0 [facility] Globulin (S) [Mass/Vol] 3.1 g/dL 2.2-4.2 [facility] Urea nitrogen/Creatinine [Mass ratio] 9.5 mg/mg 10-20 [facility] Laboratory - Hematology and Cell countsOrdered By: Anastacia Diaz on 12-06-2023 MCH (RBC) [Entitic mass] 25.8 pg 27.0-32.0 [facility] MCHC (RBC) [Mass/Vol] 31.5 g/dL 32-36 [facility] Nucleated RBC/100 WBC (Bld) [Ratio] 0 % 0-5 [facility] Platelet mean volume (Bld) [Entitic vol] 10.7 fL 6.2-12.0 [facility] Platelets (Bld) [#/Vol] 197 10*3/uL 150-450 [facility] No Panel InformationOrdered By: Anastacia Diaz on 12-06-2023 Estimated Creatinine Clearance Calc 33.12 ml/min [facility] Estimated GFR (MDRD) Amer 45 mL/min >60 [facility] Comment on above: GFR Calc Estimated GFR (MDRD) Non-Af Amer 38 mL/min >60 [facility] Comment on above: Non- GFR Calc RBC Auto (Bld) [#/Vol]Ordere d By: Anastacia Daiz on 12-06-2023 RBC (Bld) [#/Vol] 4.19 10*6/uL 4.2-5.4 [facility] Serum or plasma calcium jose antonio urement (mass/volume)Ordered By: Anastacia Diaz on 12-06-2023 Calcium [Mass/Vol] 9.7 mg/dL 8.5-10.1 [facility] Serum or plasma creatinine m easurement (mass/volume)Ordered By: Anastacia Diaz on 12-06-2023 Creatinine [Mass/Vol] 1.47 mg/dL 0.55-1.02 [facility] Comment on above: The validity of the calculated GFR & GFRAA in patients over 70 years has not been determined. Clinical correlation is essential. Serum or plasma urea nitroge n measurement (mass/volume)Ordered By: Anastacia Diaz on 12-06-2023 Urea nitrogen [Mass/Vol] 14 mg/dL 7-18 [facility] Thin prep Papanicolaou smear with manual screeningOrdered By: Anastacia Emily on 12-06-2023 Thin prep Papanicolaou smear with manual screening 3.7 g/dL 3.2-5.0 [facility] Thin prep Papanicolaou smear with manual screening 17 U/L 15-37 [facility] Thin prep Papanicolaou smear with manual screening 6 5-15 [facility] Absolute lymphocyte countOrd ered By: Tani Grey on 11-13-2023 Lymphocytes Auto (Unsp spec) [#/Vol] 1.45 10*3/uL 0.83-4.51 [facility] Automated lymphocyte count a s percentage of total leukocytesOrdered By: Tani Grey on 11-13-2023 Lymphocytes/100 WBC Auto (Unsp spec) 29.2 % 19-41 [facility] Basophil percentageOrdered B y: Tani Grey on 11-13-2023 Basophils/100 WBC (Bld) 0.6 % 0-1 [facility] Bilirubin [Mass/Vol] 0.70 mg/dL 0.20-1.00 [facility] Comment on above: For patients on eltr ombopag therapy, use of Dimension [place] TBIL is not recommended. Chloride [Moles/Vol] 106 mmol/L 98-107 [facility] Eosinophils/100 WBC (Bld) 2.4 % 0-5 [facility] Glucose [Mass/Vol] 94 mg/dL 74-106 [facility] Hemoglobin (Bld) [Mass/Vol] 12.0 g/dL 12.0-15.0 [facility] Monocytes/100 WBC (Bld) 7.7 % 0-10 [facility] Neutrophils (Bld) [#/Vol] 3.0 10*3/uL 2.0-7.7 [facility] Neutrophils/100 WBC (Bld) 59.9 % 47-70 [facility] Potassium [Moles/Vol] 4.2 mmol/L 3.5-5.1 [facility] Protein [Mass/Vol] 7.1 g/dL 6.4-8.2 [facility] Sodium [Moles/Vol] 141 mmol/L 136-145 [facility] WBC (Bld) [#/Vol] 5.0 10*3/uL 4.4-11.0 [facility] Determination of erythrocyte mean corpuscular volume (MCV)Ordered By: Tani Grey on 11-13-2023 MCV (RBC) [Entitic vol] 82.1 fL 81-99 [facility] Erythrocyte distribution wid th ratioOr[facility] By: [facility] Erythrocyte distribution width (RBC) [Ratio] 14.2 % 11.6-14.6 [facility] Erythrocyte distribution wid th standard deviationOrdered By: [facility] Erythrocyte distribution width (RBC) [Entitic vol] 42.3 fL 35.1-43.9 [facility] Hematocrit Auto (Bld) [Volum e fraction]Ordered By: [facility] 11-13-2023 Hematocrit (Bld) [Volume fraction] 38.4 % 37-47 [facility] Immature granulocytes/100 WB C Auto (Bld)Ordered By: Tani Que 11-13-2023 Immature granulocytes/100 WBC (Bld) 0.200 % 0.0-0.9 [facility] Comment on above: IG% - Immature Granu locytes (promyelocytes, myelocytes and metamyelocytes) > 1% indicates that a LEFT SHIFT is Present. Laboratory - Chemistry and C hemistry - challengeOrdered By: Tani Grey 11-13-2023 Albumin/Globulin [Mass ratio] 1.2 {ratio} 0.9-2.4 [facility] ALP [Catalytic activity/Vol] 72 U/L 45-117 [facility] ALT [Catalytic activity/Vol] 19 U/L 13-56 [facility] CO2 [Moles/Vol] 30.0 mmol/L 21.0-32.0 [facility] Globulin (S) [Mass/Vol] 3.3 g/dL 2.2-4.2 [facility] Urea nitrogen/Creatinine [Mass ratio] 14.3 mg/mg 10-20 [facility] Laboratory - Hematology and Cell countsOrdered By: Tani Grey on 11-13-2023 MCH (RBC) [Entitic mass] 25.6 pg 27.0-32.0 [facility] MCHC (RBC) [Mass/Vol] 31.3 g/dL 32-36 [facility] Nucleated RBC/100 WBC (Bld) [Ratio] 0 % 0-5 [facility] Platelet mean volume (Bld) [Entitic vol] 11.3 fL 6.2-12.0 [facility] Platelets (Bld) [#/Vol] 206 10*3/uL 150-450 [facility] No Panel InformationOrdered By: Tani Grey on 11-13-2023 Estimated GFR (MDRD) Amer 54 mL/min >60 [facility] Comment on above: GFR Calc Estimated GFR (MDRD) Non-Af Amer 45 mL/min >60 [facility] Comment on above: Non- GFR Calc Vitamin D 25-Hydroxy 80.4 ng/mL [facility] Comment on above: Vitamin D 25(OH) Sta tus Range Deficiency <20 ng/mL (50nmol/L) Insufficiency 20 - 30 ng/mL (50 - 75 nmol/L) Sufficiency 30 - 100 ng/mL (75 - 250 nmol/L) Toxicity >100 ng/mL (>250 nmol/L) RBC Auto (Bld) [#/Vol]Ordere d By: Tani Grey on 11-13-2023 RBC (Bld) [#/Vol] 4.68 10*6/uL 4.2-5.4 [facility] Serum or plasma calcium jose antonio urement (mass/volume)Ordered By: Tani Grey on 11-13-2023 Calcium [Mass/Vol] 9.6 mg/dL 8.5-10.1 [facility] Serum or plasma creatinine m easurement (mass/volume)Ordered By: Tani Grey on 11-13-2023 Creatinine [Mass/Vol] 1.26 mg/dL 0.55-1.02 [facility] Comment on above: The validity of the calculated GFR & GFRAA in patients over 70 years has not been determined. Clinical correlation is essential. Serum or plasma thyroid stim ulating hormone (TSH) measurement (units/volume)Ordered By: Tani Grey on 11-13-2023 TSH Qn 2.38 uIU/mL 0.358-3.74 [facility] Serum or plasma urea nitroge n measurement (mass/volume)Ordered By: Tani Grey on 11-13-2023 Urea nitrogen [Mass/Vol] 18 mg/dL 7-18 [facility] Thin prep Papanicolaou smear with manual screeningOrdered By: Tani Grey on 11-13-2023 Thin prep Papanicolaou smear with manual screening 3.8 g/dL 3.2-5.0 [facility] Thin prep Papanicolaou smear with manual screening 14 U/L 15-37 [facility] Thin prep Papanicolaou smear with manual screening 5 5-15 [facility] Absolute lymphocyte countOrd ered By: Tani Grey on 05-10-2023 Lymphocytes Auto (Unsp spec) [#/Vol] 1.55 10*3/uL 0.83-4.51 [facility] Basophil percentageOrdered B y: Tani Grey on 05-10-2023 Basophils/100 WBC (Bld) 0.5 % 0-1 [facility] Bilirubin [Mass/Vol] 0.40 mg/dL 0.20-1.00 [facility] Comment on above: For patients on eltr ombopag therapy, use of Dimension [place] TBIL is not recommended. Chloride [Moles/Vol] 107 mmol/L 98-107 [facility] Eosinophils/100 WBC (Bld) 1.8 % 0-5 [facility] Glucose [Mass/Vol] 95 mg/dL 74-106 [facility] Neutrophils (Bld) [#/Vol] 3.5 10*3/uL 2.0-7.7 [facility] Neutrophils/100 WBC (Bld) 62.6 % 47-70 [facility] Potassium [Moles/Vol] 3.4 mmol/L 3.5-5.1 [facility] Protein [Mass/Vol] 7.0 g/dL 6.4-8.2 [facility] Sodium [Moles/Vol] 140 mmol/L 136-145 [facility] WBC (Bld) [#/Vol] 5.5 10*3/uL 4.4-11.0 [facility] Blood erythrocytes count (nu mber/volume)Ordered By: Tani Grey on 05-10-2023 RBC (Bld) [#/Vol] 4.67 10*6/uL 4.2-5.4 [facility] Blood hemoglobin measurement (mass/volume)Ordered By: Tani Grey on 05-10-2023 Hemoglobin (Bld) [Mass/Vol] 13.2 g/dL 12.0-15.0 [facility] Blood lymphocytes/100 leukoc ytesOrdered By: Tani Grey on 05-10-2023 Lymphocytes/100 WBC (Bld) 28.0 % 19-41 [facility] Blood monocytes/100 leukocyt esOrdered By: Tani Grey on 05-10-2023 Monocytes/100 WBC (Bld) 6.9 % 0-10 [facility] Blood platelet mean volumeOr dered By: Tani Grey on 05-10-2023 Platelet mean volume (Bld) [Entitic vol] 11.5 fL 6.2-12.0 [facility] Determination of erythrocyte mean corpuscular volume (MCV)Ordered By: Tani Grey on 05-10-2023 MCV (RBC) [Entitic vol] 88.2 fL 81-99 [facility] Hematocrit Auto (Bld) [Volum e fraction]Ordered By: Tani Grey on 05-10-2023 Hematocrit (Bld) [Volume fraction] 41.2 % 37-47 [facility] Laboratory - Chemistry and C hemistry - challengeOrdered By: Tani Grey on 05-10-2023 ALP [Catalytic activity/Vol] 74 U/L 45-117 [facility] ALT [Catalytic activity/Vol] 21 U/L 13-56 [facility] CO2 [Moles/Vol] 28.0 mmol/L 21.0-32.0 [facility] Globulin (S) [Mass/Vol] 3.4 g/dL 2.2-4.2 [facility] Urea nitrogen/Creatinine [Mass ratio] 11.4 mg/mg 10-20 [facility] Laboratory - Hematology and Cell countsOrdered By: Tani Grey on 05-10-2023 Erythrocyte distribution width (RBC) [Entitic vol] 43.5 fL 35.1-43.9 [facility] Erythrocyte distribution width (RBC) [Ratio] 13.4 % 11.6-14.6 [facility] Immature granulocytes/100 WBC (Bld) 0.200 % 0.0-0.9 [facility] Comment on above: IG% - Immature Granu locytes (promyelocytes, myelocytes and metamyelocytes) > 1% indicates that a LEFT SHIFT is Present. MCH (RBC) [Entitic mass] 28.3 pg 27.0-32.0 [facility] Nucleated RBC/100 WBC (Bld) [Ratio] 0 % 0-5 [facility] MCHC Auto (RBC) [Mass/Vol]Or dered By: Tani Grey on 05-10-2023 MCHC (RBC) [Mass/Vol] 32.0 g/dL 32-36 [facility] No Panel InformationOrdered By: Tani Grey on 05-10-2023 Estimated GFR (MDRD) Amer 67 mL/min >60 [facility] Comment on above: GFR Calc Estimated GFR (MDRD) Non-Af Amer 55 mL/min >60 [facility] Comment on above: Non- GFR Calc Thyroid Stimulating Hormone (TSH) 2.62 uIU/mL 0.358-3.74 [facility] Vitamin D 25-Hydroxy 70.0 ng/mL [facility] Comment on above: Vitamin D 25(OH) Sta tus Range Deficiency <20 ng/mL (50nmol/L) Insufficiency 20 - 30 ng/mL (50 - 75 nmol/L) Sufficiency 30 - 100 ng/mL (75 - 250 nmol/L) Toxicity >100 ng/mL (>250 nmol/L) Platelets bldOrdered By: Tani Grey on 05-10-2023 Platelets (Bld) [#/Vol] 198 10*3/uL 150-450 [facility] Serum or plasma albumin jose antonio urement (mass/volume)Ordered By: Tani Grey on 05-10-2023 Albumin [Mass/Vol] 3.6 g/dL 3.2-5.0 [facility] Serum or plasma albumin/glob ulin mass ratioOrdered By: Tani Grey on 05-10-2023 Albumin/Globulin [Mass ratio] 1.1 {ratio} 0.9-2.4 [facility] Serum or plasma calcium jose antonio urement (mass/volume)Ordered By: Tani Grey on 05-10-2023 Calcium [Mass/Vol] 9.4 mg/dL 8.5-10.1 [facility] Serum or plasma creatinine m easurement (mass/volume)Ordered By: Tani Grey on 05-10-2023 Creatinine [Mass/Vol] 1.05 mg/dL 0.55-1.02 [facility] Comment on above: The validity of the calculated GFR & GFRAA in patients over 70 years has not been determined. Clinical correlation is essential. Serum or plasma urea nitroge n measurement (mass/volume)Ordered By: Tani Grey on 05-10-2023 Urea nitrogen [Mass/Vol] 12 mg/dL 7-18 [facility] Thin prep Papanicolaou smear with manual screeningOrdered By: Tani Grey on 05-10-2023 Thin prep Papanicolaou smear with manual screening 18 U/L 15-37 [facility] Thin prep Papanicolaou smear with manual screening 5 5-15 [facility] Absolute lymphocyte countOrd ered By: Dr. Grey on 11-07-2022 Lymphocytes Auto (Unsp spec) [#/Vol] 2.11 10*3/uL 0.83-4.51 [facility] Basophil percentageOrdered B y: Dr. Grey on 11-07-2022 Basophils/100 WBC (Bld) 0.7 % 0-1 [facility] Bilirubin [Mass/Vol] 0.40 mg/dL 0.20-1.00 [facility] Comment on above: For patients on eltr ombopag therapy, use of Dimension [place] TBIL is not recommended. Chloride [Moles/Vol] 104 mmol/L 98-107 [facility] Eosinophils/100 WBC (Bld) 2.0 % 0-5 [facility] Glucose [Mass/Vol] 96 mg/dL 74-106 [facility] Neutrophils (Bld) [#/Vol] 3.2 10*3/uL 2.0-7.7 [facility] Neutrophils/100 WBC (Bld) 53.5 % 47-70 [facility] Potassium [Moles/Vol] 3.6 mmol/L 3.5-5.1 [facility] Protein [Mass/Vol] 6.9 g/dL 6.4-8.2 [facility] Sodium [Moles/Vol] 140 mmol/L 136-145 [facility] WBC (Bld) [#/Vol] 5.9 10*3/uL 4.4-11.0 [facility] Blood erythrocytes count (nu mber/volume)Ordered By: Dr. Grey on 11-07-2022 RBC (Bld) [#/Vol] 4.92 10*6/uL 4.2-5.4 [facility] Blood hemoglobin measurement (mass/volume)Ordered By: Dr. Grey on 11-07-2022 Hemoglobin (Bld) [Mass/Vol] 14.7 g/dL 12.0-15.0 [facility] Blood lymphocytes/100 leukoc ytesOrdered By: Dr. Grey on 11-07-2022 Lymphocytes/100 WBC (Bld) 35.8 % 19-41 [facility] Blood monocytes/100 leukocyt esOrdered By: Dr. Grey on 11-07-2022 Monocytes/100 WBC (Bld) 7.8 % 0-10 [facility] Blood platelet mean volumeOr dered By: Dr. Grey on 11-07-2022 Platelet mean volume (Bld) [Entitic vol] 11.8 fL 6.2-12.0 [facility] Determination of erythrocyte mean corpuscular volume (MCV)Ordered By: Dr. Grey on 11-07-2022 MCV (RBC) [Entitic vol] 88.4 fL 81-99 [facility] Hematocrit Auto (Bld) [Volum e fraction]Ordered By: Dr. Grey on 02-14-2023 Hematocrit (Bld) [Volume fraction] 43.5 % 37-47 [facility] Laboratory - Chemistry and C hemistry - challengeOrdered By: Dr. Grey on 11-07-2022 ALP [Catalytic activity/Vol] 69 U/L 45-117 [facility] ALT [Catalytic activity/Vol] 27 U/L 13-56 [facility] CO2 [Moles/Vol] 31.0 mmol/L 21.0-32.0 [facility] Globulin (S) [Mass/Vol] 3.1 g/dL 2.2-4.2 [facility] Urea nitrogen/Creatinine [Mass ratio] 12.9 mg/mg 10-20 [facility] Laboratory - Hematology and Cell countsOrdered By: Dr. Grey on 11-07-2022 Erythrocyte distribution width (RBC) [Entitic vol] 41.1 fL 35.1-43.9 [facility] Erythrocyte distribution width (RBC) [Ratio] 12.6 % 11.6-14.6 [facility] Immature granulocytes/100 WBC (Bld) 0.200 % 0.0-0.9 [facility] Comment on above: IG% - Immature Granu locytes (promyelocytes, myelocytes and metamyelocytes) > 1% indicates that a LEFT SHIFT is Present. MCH (RBC) [Entitic mass] 29.9 pg 27.0-32.0 [facility] Nucleated RBC/100 WBC (Bld) [Ratio] 0 % 0-5 [facility] MCHC Auto (RBC) [Mass/Vol]Or dered By: Dr. Grey on 11-07-2022 MCHC (RBC) [Mass/Vol] 33.8 g/dL 32-36 [facility] No Panel InformationOrdered By: Dr. Grey on 11-07-2022 Estimated GFR (MDRD) Amer 70 mL/min >60 [facility] Comment on above: GFR Calc Estimated GFR (MDRD) Non-Af Amer 58 mL/min >60 [facility] Comment on above: Non- GFR Calc Hepatitis C Antibody Non-Reactive Nonreactive [facility] Comment on above: Non Reactive: < 0.8 Equivocal: >/= 0.8 to < 1.0 Reactive: >/= 1.0The CDC recommends that a reactive/equivocal HCV antibody result be followed up by the HCV Nucleic Acid Amplificationtest (880908) Thyroid Stimulating Hormone (TSH) 1.70 uIU/mL 0.358-3.74 [facility] Vitamin D 25-Hydroxy 59.1 ng/mL [facility] Comment on above: Vitamin D 25(OH) Sta tus Range Deficiency <20 ng/mL (50nmol/L) Insufficiency 20 - 30 ng/mL (50 - 75 nmol/L) Sufficiency 30 - 100 ng/mL (75 - 250 nmol/L) Toxicity >100 ng/mL (>250 nmol/L) Platelets bldOrdered By: Dr. Grey on 11-07-2022 Platelets (Bld) [#/Vol] 192 10*3/uL 150-450 [facility] Serum or plasma albumin jose antonio urement (mass/volume)Ordered By: Dr. Grey on 11-07-2022 Albumin [Mass/Vol] 3.8 g/dL 3.2-5.0 [facility] Serum or plasma albumin/glob ulin mass ratioOrdered By: Dr. Grey on 11-07-2022 Albumin/Globulin [Mass ratio] 1.2 {ratio} 0.9-2.4 [facility] Serum or plasma calcium jose antonio urement (mass/volume)Ordered By: Dr. Grey on 11-07-2022 Calcium [Mass/Vol] 9.5 mg/dL 8.5-10.1 [facility] Serum or plasma creatinine m easurement (mass/volume)Ordered By: Dr. Grey on 11-07-2022 Creatinine [Mass/Vol] 1.01 mg/dL 0.55-1.02 [facility] Comment on above: The validity of the calculated GFR & GFRAA in patients over 70 years has not been determined. Clinical correlation is essential. Serum or plasma urea nitroge n measurement (mass/volume)Ordered By: Dr. Grey on 11-07-2022 Urea nitrogen [Mass/Vol] 13 mg/dL 7-18 [facility] Thin prep Papanicolaou smear with manual screeningOrdered By: Dr. Grey on 11-07-2022 Thin prep Papanicolaou smear with manual screening 19 U/L 15-37 [facility] Thin prep Papanicolaou smear with manual screening 5 5-15 [facility] Absolute lymphocyte countOrd ered By: Dr. Degroot on 04-27-2022 Lymphocytes Auto (Unsp spec) [#/Vol] 0.98 10*3/uL 0.83-4.51 [facility] Basophil percentageOrdered B y: Dr. Degroot on 04-27-2022 Basophils/100 WBC (Bld) 0.5 % 0-1 [facility] Bilirubin [Mass/Vol] 0.60 mg/dL 0.20-1.00 [facility] Comment on above: For patients on eltr ombopag therapy, use of Dimension [place] TBIL is not recommended. Chloride [Moles/Vol] 100 mmol/L 98-107 [facility] Eosinophils/100 WBC (Bld) 6.5 % 0-5 [facility] Glucose [Mass/Vol] 94 mg/dL 74-106 [facility] Neutrophils (Bld) [#/Vol] 4.5 10*3/uL 2.0-7.7 [facility] Neutrophils/100 WBC (Bld) 69.4 % 47-70 [facility] Potassium [Moles/Vol] 3.4 mmol/L 3.5-5.1 [facility] Protein [Mass/Vol] 7.4 g/dL 6.4-8.2 [facility] Sodium [Moles/Vol] 138 mmol/L 136-145 [facility] WBC (Bld) [#/Vol] 6.5 10*3/uL 4.4-11.0 [facility] Blood erythrocytes count (nu mber/volume)Ordered By: Dr. Degroot on 04-27-2022 RBC (Bld) [#/Vol] 5.11 10*6/uL 4.2-5.4 [facility] Blood hemoglobin measurement (mass/volume)Ordered By: Dr. Degroot on 04-27-2022 Hemoglobin (Bld) [Mass/Vol] 15.6 g/dL 12.0-15.0 [facility] Blood lymphocytes/100 leukoc ytesOrdered By: Dr. Degroot on 04-27-2022 Lymphocytes/100 WBC (Bld) 15.1 % 19-41 [facility] Blood monocytes/100 leukocyt esOrdered By: Dr. Degroot on 04-27-2022 Monocytes/100 WBC (Bld) 8.0 % 0-10 [facility] Blood platelet mean volumeOr dered By: Dr. Degroot on 04-27-2022 Platelet mean volume (Bld) [Entitic vol] 11.3 fL 6.2-12.0 [facility] Determination of erythrocyte mean corpuscular volume (MCV)Ordered By: Dr. Degroot on 04-27-2022 MCV (RBC) [Entitic vol] 88.5 fL 81-99 [facility] Erythrocyte sedimentation ra teOrdered By: Dr. Degroot on 04-27-2022 ESR (Bld) [Velocity] 13 mm/h 0-30 [facility] Hematocrit Auto (Bld) [Volum e fraction]Ordered By: Dr. Degroot on 04-27-2022 Hematocrit (Bld) [Volume fraction] 45.2 % 37-47 [facility] Laboratory - Chemistry and C hemistry - challengeOrdered By: Dr. Degroot on 04-27-2022 ALP [Catalytic activity/Vol] 84 U/L 45-117 [facility] ALT [Catalytic activity/Vol] 25 U/L 13-56 [facility] CO2 [Moles/Vol] 31.0 mmol/L 21.0-32.0 [facility] Globulin (S) [Mass/Vol] 3.5 g/dL 2.2-4.2 [facility] Urea nitrogen/Creatinine [Mass ratio] 13.9 mg/mg 10-20 [facility] Laboratory - Hematology and Cell countsOrdered By: Dr. Degroot on 04-27-2022 Erythrocyte distribution width (RBC) [Entitic vol] 41.2 fL 35.1-43.9 [facility] Erythrocyte distribution width (RBC) [Ratio] 12.7 % 11.6-14.6 [facility] Immature granulocytes/100 WBC (Bld) 0.500 % 0.0-0.9 [facility] Comment on above: IG% - Immature Granu locytes (promyelocytes, myelocytes and metamyelocytes) > 1% indicates that a LEFT SHIFT is Present. MCH (RBC) [Entitic mass] 30.5 pg 27.0-32.0 [facility] Nucleated RBC/100 [facility] (Bld) [facility]] [facility] [Mass/Vol]Or dered By: Dr. Degroot on 04-27-2022 MCHC (RBC) [Mass/Vol] 34.5 g/dL 32-36 [facility] No Panel InformationOrdered By: Dr. Degroot on 04-27-2022 Estimated GFR (MDRD) Amer 65 mL/min >60 [facility] Comment on above: GFR Calc Estimated GFR (MDRD) Non-Af Amer 54 mL/min >60 [facility] Comment on above: Non- GFR Calc Platelets bldOrdered By: Dr. Degroot on 04-27-2022 Platelets (Bld) [#/Vol] 191 10*3/uL 150-450 [facility] Serum or plasma albumin jose antonio urement (mass/volume)Ordered By: Dr. Degroot on 04-27-2022 Albumin [Mass/Vol] 3.9 g/dL 3.2-5.0 [facility] Serum or plasma albumin/glob ulin mass ratioOrdered By: Dr. Degroot on 04-27-2022 Albumin/Globulin [Mass ratio] 1.1 {ratio} 0.9-2.4 [facility] Serum or plasma calcium jose antonio urement (mass/volume)Ordered By: Dr. Degroot on 04-27-2022 Calcium [Mass/Vol] 9.4 mg/dL 8.5-10.1 [facility] Serum or plasma creatinine m easurement (mass/volume)Ordered By: Dr. Degroot on 04-27-2022 Creatinine [Mass/Vol] 1.08 mg/dL 0.55-1.02 [facility] Comment on above: The validity of the calculated GFR & GFRAA in patients over 70 years has not been determined. Clinical correlation is essential. Serum or plasma urea nitroge n measurement (mass/volume)Ordered By: Dr. Degroot on 04-27-2022 Urea nitrogen [Mass/Vol] 15 mg/dL 7-18 [facility] Thin prep Papanicolaou smear with manual screeningOrdered By: Dr. Degroot on 04-27-2022 Thin prep Papanicolaou smear with manual screening 20 U/L 1537 [facility] Thin prep Papanicolaou smear with manual screening 7 5-15 [facility] Vital Signs Date Time Vital Sign Value Performing Clinician Odin lugo 06-08-2025 14:05-0400 Body height 157.[address] Tani Grey MD Work Phone: [facility] 06-08-2025 14:05-0400 Body mass index (BMI) [Ratio] 23.5 kg/m2 Dr. Tani Grey MD Work Phone: [facility] 06-08-2025 14:05-0400 Body temperature 98.3 [degF] Dr. Tani Grey MD Work Phone: [facility] 06-08-2025 14:05-0400 Body weight 58.[address] Tani Grey MD Work Phone: [facility] 06-08-2025 14:05-0400 Diastolic blood pressure 78 mm[Hg] Dr. Tani Grey MD Work Phone: [facility] 06-08-2025 14:05-0400 Heart rate 89 /min Dr. Tani Grey MD Work Phone: [facility] 06-08-2025 14:05-0400 Respiratory rate 18 /min Dr. Tani Grey MD Work Phone: [facility] 06-08-2025 14:05-0400 SaO2% (BldA) [Mass fraction] 92 % Dr. Tani Grey MD Work Phone: [facility] 06-08-2025 14:05-0400 Systolic blood pressure 147 mm[Hg] Dr. Tani Grey MD Work Phone: [facility] 04-15-2025 14:12-0400 Body height 157.[address] Tani Grey MD Work Phone: [facility] 04-15-2025 14:12-0400 Body mass index (BMI) [Ratio] 24.5 kg/m2 Dr. Tani Grey MD Work Phone: [facility] 04-15-2025 14:12-0400 Body temperature 98.4 [degF] Dr. Tani Grey MD Work Phone: [facility] 04-15-2025 14:12-0400 Body weight 60.[address] Tani Grey MD Work Phone: 5(201)748-827972 [place] [address] 04-15-2025 14:12-0400 Diastolic blood pressure 88 mm[Hg] Dr. Tani Grey MD Work Phone: 7(576)659-125125 [place] [address] 04-15-2025 14:12-0400 Heart rate 85 /min Dr. Tani Grey MD Work Phone: 6(364)872-515372 [place] [address] 04-15-2025 14:12-0400 Respiratory rate 18 /min Dr. Tani Grey MD Work Phone: 7(927)565-049872 [place] [address] 04-15-2025 14:12-0400 SaO2% (BldA) [Mass fraction] 96 % Dr. Tani Grey MD Work Phone: 3(674)086-354125 [place] [address] 04-15-2025 14:12-0400 Systolic blood pressure 145 mm[Hg] Dr. Tani Grey MD Work Phone: 8(220)667-619572 [place] [address] 03-11-2025 12:25-0400 Body temperature 98.6 [degF] Dr. Tani Grey MD Work Phone: 4(110)413-498672 [place] [address] 03-11-2025 12:25-0400 Diastolic blood pressure 69 mm[Hg] Dr. Tani Grey MD Work Phone: 6(073)798-500956 [address] 03-11-2025 12:25-0400 Heart rate 65 /min Dr. Tani Grey MD Work Phone: 4(841)207-851125 [place] [address] 03-11-2025 12:25-0400 Respiratory rate 16 /min Dr. Tani Grey MD Work Phone: 7(389)565-858672 [place] [address] 03-11-2025 12:25-0400 SaO2% (BldA) [Mass fraction] 97 % Dr. Tani Grey MD Work Phone: 7(164)260-946972 [place] [address] 03-11-2025 12:25-0400 Systolic blood pressure 127 mm[Hg] Dr. Tani Grey MD Work Phone: 2(535)387-156872 [place] [address] 03-11-2025 11:19-0400 Body height 157.[address] Tani Grey MD Work Phone: 0(449)442-971972 [place] [address] 03-11-2025 11:19-0400 Body mass index (BMI) [Ratio] 24.5 kg/m2 Dr. Tani Grey MD Work Phone: 0(643)987-824072 [place] [address] 03-11-2025 11:19-0400 Body weight [address] Tani Grey MD Work Phone: 0(497)955-164772 [place] [address] 01-08-2025 17:13-0400 Body height 157.[address] Tani Grey MD Work Phone: 7(183)289-458772 [place] [address] 01-08-2025 17:13-0400 Body mass index (BMI) [Ratio] 22.4 kg/m2 Dr. Tani Grey MD Work Phone: 2(721)134-236972 [place] [address] 01-08-2025 17:13-0400 Body temperature 98.6 [degF] Dr. Tani Grey MD Work Phone: 6(379)942-981072 [place] [address] 01-08-2025 17:13-0400 Body weight 55.[address] Tani Grey MD Work Phone: 4(768)114-242872 [place] [address] 01-08-2025 17:13-0400 Diastolic blood pressure 89 mm[Hg] Dr. Tani Grey MD Work Phone: 0(972)275-430772 [place] [address] 01-08-2025 17:13-0400 Heart rate 89 /min Dr. Tani Grey MD Work Phone: 0(571)951-363572 [place] [address] 01-08-2025 17:13-0400 Respiratory rate 18 /min Dr. Tani Grey MD Work Phone: 2(273)715-279772 [place] [address] 01-08-2025 17:13-0400 SaO2% (BldA) [Mass fraction] 95 % Dr. Tani Grey MD Work Phone: 4(637)125-710625 [place] [address] 01-08-2025 17:13-0400 Systolic blood pressure 159 mm[Hg] Dr. Tani Grey MD Work Phone: 2(662)788-347225 [place] [address] 12-24-2024 13:49-0400 Body height 157.[address] Tani Grey MD Work Phone: 3(847)628-298525 [place] [address] 12-24-2024 13:49-0400 Body mass index (BMI) [Ratio] 26 kg/m2 Dr. Tani Grey MD Work Phone: 4(626)893-366925 [place] [address] 12-24-2024 13:49-0400 Body weight 64.[address] Tani Grey MD Work Phone: 1(333)237-815125 [place] [address] 12-24-2024 13:03-0400 Body mass index (BMI) [Ratio] 26 kg/m2 Dr. Tani Grey MD Work Phone: 0(439)416-488525 [place] [address] 12-24-2024 13:03-0400 Body temperature 97.9 [degF] Dr. Tani Grey MD Work Phone: 2(319)483-359025 [place] [address] 12-24-2024 13:03-0400 Body weight 64.[address] Tani Grey MD Work Phone: 3(276)820-662925 [place] [address] 12-24-2024 13:03-0400 Diastolic blood pressure 76 mm[Hg] Dr. Tani Grey MD Work Phone: 3(940)822-076425 [place] [address] 12-24-2024 13:03-0400 Heart rate 67 /min Dr. Tani Grey MD Work Phone: 9(808)461-212525 [place] [address] 12-24-2024 13:03-0400 Respiratory rate 16 /min Dr. Tani Grey MD Work Phone: 8(156)957-869825 [place] [address] 12-24-2024 13:03-0400 SaO2% (BldA) [Mass fraction] 96 % Dr. Tani Grey MD Work Phone: 5(426)205-237525 [place] [address] 12-24-2024 13:03-0400 Systolic blood pressure 154 mm[Hg] Dr. Tani Grey MD Work Phone: 7(427)317-113925 [place] [address] 12-22-2024 10:33-0400 Body mass index (BMI) [Ratio] 25.1 kg/m2 Dr. Tani Grey MD Work Phone: [facility] 12-22-2024 10:33-0400 Body temperature 97.6 [degF] Dr. Tani Grey MD Work Phone: [facility] 12-22-2024 10:33-0400 Body weight 62.[address] Tani Grey MD Work Phone: 6(619)139-100125 [place] [address] 12-22-2024 10:33-0400 Diastolic blood pressure 86 mm[Hg] Dr. Tani Grey MD Work Phone: 8(601)980-877825 [place] [address] 12-22-2024 10:33-0400 Heart rate 75 /min Dr. Tani Grey MD Work Phone: 6(208)861-320725 [place] [address] 12-22-2024 10:33-0400 Respiratory rate 18 /min Dr. Tani Grey MD Work Phone: 7(763)295-640725 [place] [address] 12-22-2024 10:33-0400 SaO2% (BldA) [Mass fraction] 96 % Dr. Tani Grey MD Work Phone: 4(300)495-724025 [place] [address] 12-22-2024 10:33-0400 Systolic blood pressure 160 mm[Hg] Dr. Tani Grey MD Work Phone: 4(524)784-452425 [place] [address] 12-15-2024 14:03-0400 Body temperature 97 [degF] Dr. Tani Grey MD Work Phone: [facility] 12-15-2024 14:03-0400 Diastolic blood pressure 66 mm[Hg] Dr. Tani Grey MD Work Phone: [facility] 12-15-2024 14:03-0400 Heart rate 80 /min Dr. Tani Grey MD Work Phone: [facility] 12-15-2024 14:03-0400 Respiratory rate 16 /min Dr. Tani Grey MD Work Phone: [facility] 12-15-2024 14:03-0400 SaO2% (BldA) [Mass fraction] 97 % Dr. Tani Grey MD Work Phone: [facility] 12-15-2024 14:03-0400 Systolic blood pressure 135 mm[Hg] Dr. Tani Grey MD Work Phone: [facility] 12-15-2024 13:04-0400 Body height 157.[address] Tani Grey MD Work Phone: 1(170)427-590225 [place] [address] 12-15-2024 13:04-0400 Body mass index (BMI) [Ratio] 24.7 kg/m2 Dr. Tani Grey MD Work Phone: 8(937)055-095956 [address] 12-15-2024 13:04-0400 Body weight 61.[address] Tani Grey MD Work Phone: 2(607)321-690272 [place] [address] 12-12-2024 12:06-0400 Body temperature 98 [degF] Dr. Tani Grey MD Work Phone: 1(803)465-678672 [place] [address] 12-12-2024 12:06-0400 Diastolic blood pressure 57 mm[Hg] Dr. Tani Grey MD Work Phone: 3(451)432-766556 [address] 12-12-2024 12:06-0400 Heart rate 79 /min Dr. Tani Grey MD Work Phone: 6(554)526-330225 [place] [address] 12-12-2024 12:06-0400 Respiratory rate 16 /min Dr. Tani Grey MD Work Phone: 5(466)866-648225 [place] [address] 12-12-2024 12:06-0400 SaO2% (BldA) [Mass fraction] 98 % Dr. Tani Grey MD Work Phone: 5(267)568-366325 [place] [address] 12-12-2024 12:06-0400 Systolic blood pressure 136 mm[Hg] Dr. Tani Grey MD Work Phone: 7(254)966-323825 [place] [address] 12-12-2024 10:50-0400 Body height 157.[address] Tani Grey MD Work Phone: 6(190)084-863025 [place] [address] 12-12-2024 10:50-0400 Body mass index (BMI) [Ratio] 24.7 kg/m2 Dr. Tani Grey MD Work Phone: 1(718)877-390225 [place] [address] 12-12-2024 10:50-0400 Body weight 61.[address] Tani Grey MD Work Phone: 5(835)477-606625 [place] [address] 12-10-2024 13:57-0400 Body temperature 98 [degF] Dr. Tani Grey MD Work Phone: 4(923)092-919925 [place] [address] 12-10-2024 13:57-0400 Diastolic blood pressure 70 mm[Hg] Dr. Tani Grey MD Work Phone: 8(144)162-307972 [place] [address] 12-10-2024 13:57-0400 Heart rate 81 /min Dr. Tani Grey MD Work Phone: 4(650)593-012372 [place] [address] 12-10-2024 13:57-0400 Respiratory rate 16 /min Dr. Tani Grey MD Work Phone: 7(336)763-485872 [place] [address] 12-10-2024 13:57-0400 SaO2% (BldA) [Mass fraction] 94 % Dr. Tani Grey MD Work Phone: 7(393)669-968772 [place] [address] 12-10-2024 13:57-0400 Systolic blood pressure 152 mm[Hg] Dr. Tani Grey MD Work Phone: 8(671)388-871572 [place] [address] 12-10-2024 12:52-0400 Body height 157.[address] Tani Grey MD Work Phone: 3(026)846-596372 [place] [address] 12-10-2024 12:52-0400 Body mass index (BMI) [Ratio] 25 kg/m2 Dr. Tani Grey MD Work Phone: 0(149)301-683072 [place] [address] 12-10-2024 12:52-0400 Body weight 62.[address] Tani Grey MD Work Phone: 6(837)044-721725 [place] [address] 12-08-2024 14:19-0400 Diastolic blood pressure 62 mm[Hg] Dr. Tani Grey MD Work Phone: 8(086)581-359925 [place] [address] 12-08-2024 14:19-0400 Heart rate 80 /min Dr. Tani Grey MD Work Phone: 2(538)725-696225 [place] [address] 12-08-2024 14:19-0400 Systolic blood pressure 148 mm[Hg] Dr. Tani Grey MD Work Phone: 3(065)036-539072 [place] [address] 12-08-2024 12:58-0400 Body height 157.[address] Tani Grey MD Work Phone: 3(357)056-996172 [place] [address] 12-08-2024 12:58-0400 Body mass index (BMI) [Ratio] 25.2 kg/m2 Dr. Tani Grey MD Work Phone: 2(496)225-583972 [place] [address] 12-08-2024 12:58-0400 Body temperature 96.7 [degF] Dr. Tani Grey MD Work Phone: 3(840)255-733072 [place] [address] 12-08-2024 12:58-0400 Body weight 62.[address] Tani Grey MD Work Phone: 7(737)597-746172 [place] [address] 12-08-2024 12:58-0400 Respiratory rate 14 /min Dr. Tani Grey MD Work Phone: 6(136)142-231072 [place] [address] 12-08-2024 12:58-0400 SaO2% (BldA) [Mass fraction] 96 % Dr. Tani Grey MD Work Phone: 4(873)386-443172 [place] [address] 12-05-2024 12:15-0400 Diastolic blood pressure 62 mm[Hg] Dr. Tani Grey MD Work Phone: 4(948)096-290972 [place] [address] 12-05-2024 12:15-0400 Heart rate 77 /min Dr. Tani Grey MD Work Phone: 4(439)477-994372 [place] [address] 12-05-2024 12:15-0400 Respiratory rate 14 /min Dr. Tani Grey MD Work Phone: 5(020)748-961672 [place] [address] 12-05-2024 12:15-0400 SaO2% (BldA) [Mass fraction] 93 % Dr. Tani Grey MD Work Phone: 2(238)383-096072 [place] [address] 12-05-2024 12:15-0400 Systolic blood pressure 146 mm[Hg] Dr. Tani Grey MD Work Phone: 6(457)486-546572 [place] [address] 12-05-2024 11:03-0400 Body height 157.[address] Tani Grey MD Work Phone: 8(781)962-876372 [place] [address] 12-04-2024 09:29-0400 Body temperature 97.2 [degF] Dr. Tani Grey MD Work Phone: 6(456)792-304872 [place] [address] 12-04-2024 09:29-0400 Diastolic blood pressure 65 mm[Hg] Dr. Tani Grey MD Work Phone: 1(150)084-584372 [place] [address] 12-04-2024 09:29-0400 Heart rate 69 /min Dr. Tani Grey MD Work Phone: 9(955)992-134272 [place] [address] 12-04-2024 09:29-0400 Respiratory rate 16 /min Dr. Tani Grey MD Work Phone: 9(533)926-037472 [place] [address] 12-04-2024 09:29-0400 Systolic blood pressure 154 mm[Hg] Dr. Tani Grey MD Work Phone: 1(196)948-615672 [place] [address] 12-04-2024 08:29-0400 SaO2% (BldA) [Mass fraction] 99 % Dr. Tani Grey MD Work Phone: 8(532)174-856772 [place] [address] 12-04-2024 07:59-0400 Body mass index (BMI) [Ratio] 25.7 kg/m2 Dr. Tani Grey MD Work Phone: 0(920)374-679772 [place] [address] 12-04-2024 07:59-0400 Body weight 63.[address] Tani Grey MD Work Phone: 9(487)697-141872 [place] [address] 12-03-2024 15:32-0400 Body weight 63.[address] Tani Grey MD Work Phone: 0(405)541-811672 [place] [address] 12-03-2024 14:26-0400 Body mass index (BMI) [Ratio] 25.7 kg/m2 Dr. Tani Grey MD Work Phone: 6(840)950-030272 [place] [address] 12-03-2024 14:26-0400 Body temperature 98.7 [degF] Dr. Tani Grey MD Work Phone: [facility] 12-03-2024 14:26-0400 Diastolic blood pressure 62 mm[Hg] Dr. Tani Grey MD Work Phone: [facility] 12-03-2024 14:26-0400 Heart rate 74 /min Dr. Tani Grey MD Work Phone: [facility] 12-03-2024 14:26-0400 Respiratory rate 16 /min Dr. Tani Grey MD Work Phone: [facility] 12-03-2024 14:26-0400 SaO2% (BldA) [Mass fraction] 93 % Dr. Tani Grey MD Work Phone: [facility] 12-03-2024 14:26-0400 Systolic blood pressure 153 mm[Hg] Dr. Tani Grey MD Work Phone: [facility] 09-02-2024 15:12-0500 Body mass index (BMI) [Ratio] 25 kg/m2 Dr. Tani Grey MD Work Phone: [facility] 09-02-2024 15:12-0500 Body temperature 98.9 [degF] Dr. Tani Grey MD Work Phone: [facility] 09-02-2024 15:12-0500 Body weight 61.[address] Tani Grey MD Work Phone: [facility] 09-02-2024 15:12-0500 Diastolic blood pressure 84 mm[Hg] Dr. Tani Grey MD Work Phone: [facility] 09-02-2024 15:12-0500 Heart rate 87 /min Dr. Tani Grey MD Work Phone: [facility] 09-02-2024 15:12-0500 Respiratory rate 18 /min Dr. Tani Grey MD Work Phone: [facility] 09-02-2024 15:12-0500 SaO2% (BldA) [Mass fraction] 97 % Dr. Tani Grey MD Work Phone: [facility] 09-02-2024 15:12-0500 Systolic blood pressure 165 mm[Hg] Dr. Tani Grey MD Work Phone: [facility] 08-26-2024 13:59-0500 Body mass index (BMI) [Ratio] 25.2 kg/m2 Dr. Tani Grey MD Work Phone: [facility] 08-26-2024 13:59-0500 Body temperature 98.8 [degF] Dr. Tani Grey MD Work Phone: [facility] 08-26-2024 13:59-0500 Body weight 62.[address] Tani Grey MD Work Phone: [facility] 08-26-2024 13:59-0500 Diastolic blood pressure 85 mm[Hg] Dr. Tani Grey MD Work Phone: [facility] 08-26-2024 13:59-0500 Heart rate 97 /min Dr. Tani Grey MD Work Phone: [facility] 08-26-2024 13:59-0500 Respiratory rate 18 /min Dr. Tani Grey MD Work Phone: [facility] 08-26-2024 13:59-0500 SaO2% (BldA) [Mass fraction] 95 % Dr. Tani Grey MD Work Phone: [facility] 08-26-2024 13:59-0500 Systolic blood pressure 166 mm[Hg] Dr. Tani Grey MD Work Phone: [facility] 06-27-2024 14:39-0400 Body mass index (BMI) [Ratio] 24.98 kg/m2 Kianna Tobar APRN.AIRPLANE AND ENGINE INSPECTOR Work Phone: [facility] 06-27-2024 14:39-0400 Body weight 61.96 kg Kianna Tobar APRN.AIRPLANE AND ENGINE INSPECTOR Work Phone: [facility] 06-27-2024 14:39-0400 Diastolic blood pressure 78 mm[Hg] Kianna Haury ADDICTIONS RECOVERY SPECIALIST.AIRPLANE AND ENGINE INSPECTOR Work Phone: [facility] 06-27-2024 14:39-0400 Systolic blood pressure 144 mm[Hg] Kianna Amadou SHORTAIRPLANE AND ENGINE INSPECTOR Work Phone: [facility] 01-27-2024 13:40-0400 Body temperature 97.6 [degF] Dr. Tani Grey Work Phone: [facility] 01-27-2024 13:40-0400 Diastolic blood pressure 74 mm[Hg] Dr. Tani Grey Work Phone: [facility] 01-27-2024 13:40-0400 Heart rate 70 /min Dr. Tani Grey Work Phone: [facility] 01-27-2024 13:40-0400 Respiratory rate 16 /min Dr. Tani Grey Work Phone: [facility] 01-27-2024 13:40-0400 SaO2% (BldA) [Mass fraction] 98 % Dr. Tani Grey Work Phone: [facility] 01-27-2024 13:40-0400 Systolic blood pressure 140 mm[Hg] Dr. Tani Grey Work Phone: [facility] 01-27-2024 08:07-0400 Body height [address] Tani Grey Work Phone: [facility] 01-27-2024 08:07-0400 Body mass index (BMI) [Ratio] 26.7 kg/m2 Dr. Tani Grey Work Phone: [facility] 01-27-2024 08:07-0400 Body weight 65.[address] Tani Grey Work Phone: [facility] 01-26-2024 12:28-0400 Body temperature 97 [degF] Dr. Tani Grey Work Phone: [facility] 01-26-2024 12:28-0400 Diastolic blood pressure 69 mm[Hg] Dr. Tani Grey Work Phone: [facility] 01-26-2024 12:28-0400 Heart rate 74 /min Dr. Tani Grey Work Phone: [facility] 01-26-2024 12:28-0400 Respiratory rate 18 /min Dr. Tani Grey Work Phone: [facility] 01-26-2024 12:28-0400 SaO2% (BldA) [Mass fraction] 97 % Dr. Tani Grey Work Phone: 1(198)904-859425 [place] [address] 01-26-2024 12:28-0400 Systolic blood pressure 136 mm[Hg] Dr. Tani Grey Work Phone: 7(989)664-422956 [address] 01-26-2024 09:45-0400 Body height 157.[address] Tani Grey Work Phone: 9(722)695-300456 [address] 01-26-2024 09:45-0400 Body mass index (BMI) [Ratio] 27.1 kg/m2 Dr. Tani Grey Work Phone: 1(675)398-312756 [address] 01-26-2024 09:45-0400 Body weight 67.[address] Tani Grey Work Phone: 3(137)535-378156 [address] 12-06-2023 14:03-0400 Body height 157.[address] Tani Grey Work Phone: 6(969)524-438225 [place] [address] 12-06-2023 14:03-0400 Body mass index (BMI) [Ratio] 27.8 kg/m2 Dr. Tani Grey Work Phone: 1(978)404-709425 [place] [address] 12-06-2023 14:03-0400 Body temperature 98.6 [degF] Dr. Tani Grey Work Phone: 4(723)081-727825 [place] [address] 12-06-2023 14:03-0400 Body weight 68.[address] Tani Grey Work Phone: 3(810)627-006425 [place] [address] 12-06-2023 14:03-0400 Diastolic blood pressure 81 mm[Hg] Dr. Tani Grey Work Phone: 5(620)465-517525 [place] [address] 12-06-2023 14:03-0400 Heart rate 85 /min Dr. Tani Grey Work Phone: [facility] 12-06-2023 14:03-0400 Respiratory rate 18 /min Dr. Tani Grey Work Phone: [facility] 12-06-2023 14:03-0400 SaO2% (BldA) [Mass fraction] 99 % Dr. Tani Grey Work Phone: [facility] 12-06-2023 14:03-0400 Systolic blood pressure 172 mm[Hg] Dr. Tani Grey Work Phone: [facility] 10-09-2023 09:11-0500 Body mass index (BMI) [Ratio] 27.4 kg/m2 Dr. Tani Grey Work Phone: [facility] 10-09-2023 09:11-0500 Body weight 68.[address] Tani Grey Work Phone: [facility] 10-09-2023 09:11-0500 Diastolic blood pressure 92 mm[Hg] Dr. Tani Grey Work Phone: [facility] 10-09-2023 09:11-0500 Respiratory rate 16 /min Dr. Tani Grey Work Phone: [facility] 10-09-2023 09:11-0500 Systolic blood pressure 165 mm[Hg] Dr. Tani Grey Work Phone: [facility] 10-02-2023 13:37-0500 Body mass index (BMI) [Ratio] 27.4 kg/m2 Dr. Tani Grey Work Phone: [facility] 10-02-2023 13:37-0500 Body temperature 98.2 [degF] Dr. Tani Grey Work Phone: [facility] 10-02-2023 13:37-0500 Diastolic blood pressure 77 mm[Hg] Dr. Tani Grey Work Phone: [facility] 10-02-2023 13:37-0500 Heart rate 86 /min Dr. Tani Grey Work Phone: [facility] 10-02-2023 13:37-0500 Respiratory rate 16 /min Dr. Tani Grey Work Phone: [facility] 10-02-2023 13:37-0500 Systolic blood pressure 168 mm[Hg] Dr. Tani Grey Work Phone: [facility] 09-06-2023 13:30-0500 Body mass index (BMI) [Ratio] 27.6 kg/m2 Dr. Tani Grey Work Phone: [facility] 09-06-2023 13:30-0500 Body temperature 98.1 [degF] Dr. Tani Grey Work Phone: 1(614)228-141525 [place] [address] 09-06-2023 13:30-0500 Body weight 68.[address] Tani Grey Work Phone: 6(114)225-569825 [place] [address] 09-06-2023 13:30-0500 Diastolic blood pressure 82 mm[Hg] Dr. Tani Grey Work Phone: 5(568)330-670825 [place] [address] 09-06-2023 13:30-0500 Heart rate 83 /min Dr. Tani Grey Work Phone: 9(455)298-750925 [place] [address] 09-06-2023 13:30-0500 Respiratory rate 18 /min Dr. Tani Grey Work Phone: 5(255)511-552425 [place] [address] 09-06-2023 13:30-0500 SaO2% (BldA) [Mass fraction] 97 % Dr. Tani Grey Work Phone: [facility] 09-06-2023 13:30-0500 Systolic blood pressure 136 mm[Hg] Dr. Tani Grey Work Phone: 0(830)102-541725 [place] [address] 08-14-2023 12:55-0500 Body height 157.[address] Tani Grey Work Phone: [facility] 08-14-2023 12:55-0500 Body mass index (BMI) [Ratio] 27.4 kg/m2 Dr. Tani Grey Work Phone: 2(486)756-278825 [place] [address] 08-14-2023 12:55-0500 Body temperature 97.7 [degF] Dr. Tani Grey Work Phone: [facility] 08-14-2023 12:55-0500 Body weight 68.[address] Tani Grey Work Phone: [facility] 08-14-2023 12:55-0500 Diastolic blood pressure 90 mm[Hg] Dr. Tani Grey Work Phone: 1(487)915-584825 [place] [address] 08-14-2023 12:55-0500 Heart rate 98 /min Dr. Tani Grey Work Phone: 7(166)068-083225 [place] [address] 08-14-2023 12:55-0500 Respiratory rate 16 /min Dr. Tani Grey Work Phone: 0(762)683-610825 [place] [address] 08-14-2023 12:55-0500 SaO2% (BldA) [Mass fraction] 96 % Dr. Tani Grey Work Phone: 2(124)449-292625 [place] [address] 08-14-2023 12:55-0500 Systolic blood pressure 189 mm[Hg] Dr. Tani Grey Work Phone: 7(194)110-943056 [address] 06-21-2023 15:05-0400 Body mass index (BMI) [Ratio] 27.2 kg/m2 Dr. Tani Grey Work Phone: 6(200)022-868725 [place] [address] 06-21-2023 15:05-0400 Body temperature 98.4 [degF] Dr. Tani Grey Work Phone: [facility] 06-21-2023 15:05-0400 Body weight 67.[address] Tani Grey Work Phone: [facility] 06-21-2023 15:05-0400 Diastolic blood pressure 92 mm[Hg] Dr. Tani Grey Work Phone: [facility] 06-21-2023 15:05-0400 Heart rate 91 /min Dr. Tani Grey Work Phone: [facility] 06-21-2023 15:05-0400 Respiratory rate 16 /min Dr. Tani Grey Work Phone: [facility] 06-21-2023 15:05-0400 SaO2% (BldA) [Mass fraction] 94 % Dr. Tani Grey Work Phone: [facility] 06-21-2023 15:05-0400 Systolic blood pressure 168 mm[Hg] Dr. Tani Grey Work Phone: 8(000)322-279256 [address] 05-14-2023 13:56-0400 Body height 157.[address] Tani Grey Work Phone: 1(165)584-015556 [address] 05-14-2023 13:56-0400 Body mass index (BMI) [Ratio] 27.2 kg/m2 Dr. Tani Grey Work Phone: 3(413)504-767556 [address] 05-14-2023 13:56-0400 Body temperature 98.9 [degF] Dr. Tani Grey Work Phone: 1(169)429-804756 [address] 05-14-2023 13:56-0400 Body weight 67.[address] Tani Grey Work Phone: 7(541)799-606272 [place] [address] 05-14-2023 13:56-0400 Diastolic blood pressure 82 mm[Hg] Dr. Tani Grey Work Phone: 5(233)746-908772 [place] [address] 05-14-2023 13:56-0400 Heart rate 99 /min Dr. Tani Grey Work Phone: 2(241)662-671956 [address] 05-14-2023 13:56-0400 Respiratory rate 18 /min Dr. Tani Grey Work Phone: [facility] 05-14-2023 13:56-0400 SaO2% (BldA) [Mass fraction] 98 % Dr. Tani Grey Work Phone: 7(878)026-401425 [place] [address] 05-14-2023 13:56-0400 Systolic blood pressure 148 mm[Hg] Dr. Tani Grey Work Phone: 3(646)046-871525 [place] [address] 04-03-2023 14:55-0400 Body height 157.[address] Tani Grey Work Phone: 8(014)917-143656 [address] 04-03-2023 14:55-0400 Body mass index (BMI) [Ratio] 27.4 kg/m2 Dr. Tani Grey Work Phone: [facility] 04-03-2023 14:55-0400 Body temperature 97.7 [degF] Dr. Tani Grey Work Phone: [facility] 04-03-2023 14:55-0400 Body weight 68.[address] Tani Grey Work Phone: [facility] 04-03-2023 14:55-0400 Diastolic blood pressure 63 mm[Hg] Dr. Tani Grey Work Phone: 5(370)125-506625 [place] [address] 04-03-2023 14:55-0400 Heart rate 90 /min Dr. Tani Grey Work Phone: 1(232)679-488925 [place] [address] 04-03-2023 14:55-0400 Respiratory rate 16 /min Dr. Tani Grey Work Phone: 6(599)130-222925 [place] [address] 04-03-2023 14:55-0400 SaO2% (BldA) [Mass fraction] 95 % Dr. Tani Grey Work Phone: 7(177)123-159125 [place] [address] 04-03-2023 14:55-0400 Systolic blood pressure 140 mm[Hg] Dr. Tani Grey Work Phone: [facility] 02-12-2023 15:38-0400 Body mass index (BMI) [Ratio] 27.3 kg/m2 Dr. Tani Grey Work Phone: [facility] 02-12-2023 15:38-0400 Body temperature 98.6 [degF] Dr. Tani Grey Work Phone: [facility] 02-12-2023 15:38-0400 Body weight 67.[address] Tani Grey Work Phone: [facility] 02-12-2023 15:38-0400 Diastolic blood pressure 80 mm[Hg] Dr. Tani Grey Work Phone: [facility] 05-22-2023 15:38-0400 Heart rate 93 /min Dr. Tani Grey Work Phone: [facility] 02-12-2023 15:38-0400 Respiratory rate 16 /min Dr. Tani Grey Work Phone: [facility] 02-12-2023 15:38-0400 SaO2% (BldA) [Mass fraction] 97 % Dr. Tani Grey Work Phone: 9(590)785-064725 [place] [address] 02-12-2023 15:38-0400 Systolic blood pressure 142 mm[Hg] Dr. Tani Grey Work Phone: 3(123)072-685972 [place] [address] 02-12-2023 15:31-0400 Body mass index (BMI) [Ratio] 27.3 kg/m2 Dr. Tani Grey Work Phone: 9(640)376-169856 [address] 02-12-2023 15:31-0400 Body temperature 98.6 [degF] Dr. Tani Grey Work Phone: 9(120)241-269772 [place] [address] 02-12-2023 15:31-0400 Body weight 67.[address] Tani Grey Work Phone: 9(932)097-192456 [address] 02-12-2023 15:31-0400 Diastolic blood pressure 80 mm[Hg] Dr. Tani Grey Work Phone: 9(092)884-442956 [address] 02-12-2023 15:31-0400 Heart rate 93 /min Dr. Tani Grey Work Phone: 9(127)852-214825 [place] [address] 02-12-2023 15:31-0400 Respiratory rate 16 /min Dr. Tani Grey Work Phone: 1(367)004-339125 [place] [address] 02-12-2023 15:31-0400 SaO2% (BldA) [Mass fraction] 97 % Dr. Tani Grey Work Phone: 5(430)223-831725 [place] [address] 02-12-2023 15:31-0400 Systolic blood pressure 142 mm[Hg] Dr. Tani Grey Work Phone: 1(378)573-145356 [address] 11-13-2022 11:36-0500 Body height 157.[address] Frederick Poe Work Phone: [facility] 11-13-2022 11:36-0500 Body mass index (BMI) [Ratio] 27.8 kg/m2 Dr. Frederick Poe Work Phone: [facility] 11-13-2022 11:36-0500 Body temperature 98.4 [degF] Dr. Frederick Poe Work Phone: [facility] 11-13-2022 11:36-0500 Body weight 69.[address] Frederick Poe Work Phone: 7(532)933-128977 [place] [address] 11-13-2022 11:36-0500 Diastolic blood pressure 82 mm[Hg] Dr. Frederick Poe Work Phone: 4(542)075-642377 [place] [address] 11-13-2022 11:36-0500 Heart rate 72 /min Dr. Frederick Poe Work Phone: 3(500)616-198077 [place] [address] 11-13-2022 11:36-0500 Respiratory rate 16 /min Dr. Frederick Poe Work Phone: 7(922)011-296877 [place] [address] 11-13-2022 11:36-0500 SaO2% (BldA) [Mass fraction] 96 % Dr. Frederick Poe Work Phone: [facility] 11-13-2022 11:36-0500 Systolic blood pressure 161 mm[Hg] Dr. Frederick Poe Work Phone: [facility] 10-10-2022 10:46-0500 Body mass index (BMI) [Ratio] 27.7 kg/m2 Dr. Frederick Poe Work Phone: [facility] 10-10-2022 10:46-0500 Body temperature 97.6 [degF] Dr. Frederick Poe Work Phone: [facility] 10-10-2022 10:46-0500 Body weight 68.[address] Frederick Poe Work Phone: [facility] 10-10-2022 10:46-0500 Diastolic blood pressure 84 mm[Hg] Dr. Frederick Poe Work Phone: [facility] 10-10-2022 10:46-0500 Heart rate 78 /min Dr. Frederick Poe Work Phone: [facility] 10-10-2022 10:46-0500 Respiratory rate 16 /min Dr. Frederick Poe Work Phone: [facility] 10-10-2022 10:46-0500 SaO2% (BldA) [Mass fraction] 94 % Dr. Frederick Poe Work Phone: [facility] 10-10-2022 10:46-0500 Systolic blood pressure 172 mm[Hg] Dr. Frederick Poe Work Phone: [facility] 10-04-2022 14:57-0500 Body mass index (BMI) [Ratio] 28 kg/m2 Dr. Frederick Poe Work Phone: [facility] 10-04-2022 14:57-0500 Body temperature 97.7 [degF] Dr. Frederick Poe Work Phone: [facility] 10-04-2022 14:57-0500 Body weight 69.[address] Frederick Poe Work Phone: [facility] 10-04-2022 14:57-0500 Diastolic blood pressure 84 mm[Hg] Dr. Frederick Poe Work Phone: [facility] 10-04-2022 14:57-0500 Heart rate 90 /min Dr. Frederick Poe Work Phone: [facility] 10-04-2022 14:57-0500 Respiratory rate 16 /min Dr. Frederick Poe Work Phone: [facility] 10-04-2022 14:57-0500 SaO2% (BldA) [Mass fraction] 96 % Dr. Frederick Poe Work Phone: [facility] 10-04-2022 14:57-0500 Systolic blood pressure 163 mm[Hg] Dr. Frederick Poe Work Phone: [facility] 08-14-2022 14:30-0500 Body height 157.[address] Frederick Poe Work Phone: [facility] Work Phone: 08-14-2022 14:30-0500 Body mass index (BMI) [Ratio] 27.7 kg/m2 Dr. Frederick Poe Work Phone: [facility] 08-14-2022 14:30-0500 Body temperature 97.4 [degF] Dr. Frederick Poe Work Phone: [facility] 08-14-2022 14:30-0500 Body weight 68.[address] Frederick Poe Work Phone: [facility] 08-14-2022 14:30-0500 Diastolic blood pressure 99 mm[Hg] Dr. Frederick Poe Work Phone: [facility] 08-14-2022 14:30-0500 Heart rate 99 /min Dr. Frederick Poe Work Phone: [facility] 08-14-2022 14:30-0500 Respiratory rate 16 /min Dr. Frederick Poe Work Phone: [facility] 08-14-2022 14:30-0500 SaO2% (BldA) [Mass fraction] 94 % Dr. Frederick Poe Work Phone: [facility] 08-14-2022 14:30-0500 Systolic blood pressure 163 mm[Hg] Dr. Frederick Poe Work Phone: [facility] 08-09-2022 10:19-0500 Body mass index (BMI) [Ratio] 27.4 kg/m2 Dr. Frederick Poe Work Phone: [facility] 08-09-2022 10:19-0500 Body weight 68.[address] Frederick Poe Work Phone: [facility] 08-08-2022 12:39-0500 Body temperature 98 [degF] Dr. Frederick Poe Work Phone: [facility] 08-08-2022 12:39-0500 Body weight 68.[address] Frederick Poe Work Phone: [facility] 08-08-2022 12:39-0500 Diastolic blood pressure 84 mm[Hg] Dr. Frederick Poe Work Phone: [facility] 08-08-2022 12:39-0500 Heart rate 84 /min Dr. Frederick Poe Work Phone: [facility] 08-08-2022 12:39-0500 Respiratory rate 18 /min Dr. Frederick Poe Work Phone: [facility] 08-08-2022 12:39-0500 SaO2% (BldA) [Mass fraction] 95 % Dr. Frederick Poe Work Phone: [facility] 08-08-2022 12:39-0500 Systolic blood pressure 146 mm[Hg] Dr. Frederick Poe Work Phone: [facility] 06-06-2022 11:14-0400 Body mass index (BMI) [Ratio] 27.8 kg/m2 Dr. Frederick Poe Work Phone: [facility] Work Phone: 06-06-2022 11:14-0400 Body temperature 97.1 [degF] Dr. Frederick Poe Work Phone: [facility] Work Phone: 06-06-2022 11:14-0400 Body weight 69.[address] Frederick Poe Work Phone: [facility] Work Phone: 06-06-2022 11:14-0400 Diastolic blood pressure 85 mm[Hg] Dr. Frederick Poe Work Phone: [facility] Work Phone: 06-06-2022 11:14-0400 Heart rate 79 /min Dr. Frederick Poe Work Phone: [facility] Work Phone: 06-06-2022 11:14-0400 Respiratory rate 16 /min Dr. Frederick Poe Work Phone: [facility] Work Phone: 06-06-2022 11:14-0400 SaO2% (BldA) [Mass fraction] 95 % Dr. Frederick Poe Work Phone: [facility] Work Phone: 06-06-2022 11:14-0400 Systolic blood pressure 154 mm[Hg] Dr. Frederick Poe Work Phone: [facility] Work Phone: 04-27-2022 13:15-0400 Body height 157.[address] Frederick Poe Work Phone: [facility] Work Phone: 04-27-2022 13:15-0400 Body mass index (BMI) [Ratio] 26.9 kg/m2 Dr. Frederick Poe Work Phone: [facility] Work Phone: 04-27-2022 13:15-0400 Body temperature 98 [degF] Dr. Frederick Poe Work Phone: [facility] Work Phone: 04-27-2022 13:15-0400 Body weight 66.[address] Frederick Poe Work Phone: [facility] Work Phone: 04-27-2022 13:15-0400 Diastolic blood pressure 87 mm[Hg] Dr. Frederick Poe Work Phone: [facility] Work Phone: 04-27-2022 13:15-0400 Heart rate 100 /min Dr. Frederick Poe Work Phone: [facility] Work Phone: 04-27-2022 13:15-0400 Respiratory rate 16 /min Dr. Frederick Poe Work Phone: [facility] Work Phone: 04-27-2022 13:15-0400 SaO2% (BldA) [Mass fraction] 96 % Dr. Frederick Poe Work Phone: [facility] Work Phone: 04-27-2022 13:15-0400 Systolic blood pressure 142 mm[Hg] Dr. Frederick Poe Work Phone: [facility] Work Phone: 03-21-2022 14:09-0400 Body temperature 96.7 [degF] Dr. Frederick Poe Work Phone: [facility] Work Phone: 03-21-2022 14:09-0400 Diastolic blood pressure 95 mm[Hg] Dr. Frederick Poe Work Phone: [facility] Work Phone: 03-21-2022 14:09-0400 Heart rate 87 /min Dr. Frederick Poe Work Phone: [facility] Work Phone: 03-21-2022 14:09-0400 Respiratory rate 16 /min Dr. Frederick Poe Work Phone: [facility] Work Phone: 03-21-2022 14:09-0400 SaO2% (BldA) [Mass fraction] 98 % Dr. Frederick Poe Work Phone: [facility] Work Phone: 03-21-2022 14:09-0400 Systolic blood pressure 168 mm[Hg] Dr. Frederick Poe Work Phone: [facility] Work Phone: 01-25-2022 13:58-0400 Body mass index (BMI) [Ratio] 28.5 kg/m2 Dr. Frederick Poe Work Phone: [facility] Work Phone: 01-25-2022 13:58-0400 Body temperature 98.5 [degF] Dr. Frederick Poe Work Phone: [facility] Work Phone: 01-25-2022 13:58-0400 Body weight 70.[address] Frederick Poe Work Phone: [facility] Work Phone: 01-25-2022 13:58-0400 Heart rate 88 /min Dr. Frederick Poe Work Phone: [facility] Work Phone: 01-25-2022 13:58-0400 Respiratory rate 16 /min Dr. Frederick Poe Work Phone: [facility] Work Phone: 01-25-2022 13:58-0400 SaO2% (BldA) [Mass fraction] 99 % Dr. Frederick Poe Work Phone: [facility] Work Phone: Encounters Encounter Date Encounter Type Care Provider Facility Start: 06-08-[address] Sean Griffith on [facility] Start: 06-08-2025 End: 06-08-2025 Patient encounter procedure Anastacia Diaz AFRICANA STUDIES PROFESSOR- -[facility] Work Phone: Start: 06-08-2025 End: 06-08-[address] Tani Grey MD Work Phone: -[facility] Start: 05-14-2025 End: 05-14-[address] Tani Grey MD Work Phone: -Laboratory Phy Office 3rd Flr Start: 05-14-2025 End: 05-14-[address] Tani Grey MD -Laboratory Phy Office 3rd Flr Start: 05-14-2025 End: 05-14-2025 ambulatory Tani Grey Facility:[facility] Start: 04-15-[address] Sean Griffith on [facility] Start: 04-15-2025 End: 04-15-2025 Patient encounter procedure Anastacia Diaz NP- -[facility] Work Phone: Start: 04-15-2025 End: 04-15-[address] Tani Grey MD Work Phone: -[facility] Start: 03-11-2025 Non-patient / Non-visit [facility] Start: 03-11-2025 End: 03-11-2025 [facility]: Start: 03-11-2025 End: 03-11-[address] Tani Grey MD Work Phone: [facility] Work Phone: Start: 02-09-2025 End: 02-09-[address] Tani Grey MD -Laboratory Work Phone: Start: 02-09-2025 End: 02-09-2025 ambulatory Tani [facility] Facility:[facility] Start: 01-09-2025 End: 01-09-[address] Tani Grey MD -[facility] Work Phone: Start: 01-09-2025 End: 01-09-2025 ambulatory Tani [facility] Que Facility:[facility] Start: 01-08-2025 End: 01-08-2025 Emergency department patient visit Dr. Tani Grey MD Work Phone: -Emergency Department Work Phone: Start: 12-30-2024 End: 12-30-2024 Patient encounter procedure Dulce SANCHEZ -[facility] Work Phone: Start: 12-30-2024 End: 12-30-2024 ambulatory Tani Chi Que Facility:[facility] Start: 12-24-[address] Sean Griffith on [facility] Start: 12-24-2024 End: 12-24-2024 Patient encounter procedure Anastacia Emily AFRICANA STUDIES PROFESSOR-C -[facility] Work Phone: Start: 12-24-2024 End: 12-24-2024 ambulatory Tani Grey Facility:[facility] Start: 12-23-2024 End: 12-23-[address] Tani Grey MD Work Phone: [facility] Work Phone: Start: 12-23-2024 End: 12-23-2024 Patient encounter procedure Anastacia Emily AFRICANA STUDIES PROFESSOR-C -Ultrasound, [facility] Work Phone: Start: 12-22-2024 End: 12-22-2024 Patient encounter procedure Anastaciaandreia GuerraEmily AFRICANA STUDIES PROFESSOR-C -[facility] Work Phone: Start: 12-22-2024 End: 12-23-2024 ambulatory Anastacia Diaz AFRICANA STUDIES PROFESSOR Facility:[facility] Start: 12-15-2024 End: 12-15-[address] Tani Grey MD -Medical Out Work Phone: Start: 12-15-2024 End: 12-15-[address] Tani Grey MD Work Phone: [facility] Work Phone: Start: 12-12-2024 End: 12-12-[address] Tani Grey MD -[facility] Out Work Phone: Start: 12-12-2024 End: 12-12-[address] Tani Grey MD Work Phone: [facility] Work Phone: Start: 12-10-2024 End: 12-10-[address] Tani Grey MD -Medical Out Work Phone: Start: 12-10-2024 End: 12-10-[address] Tani Grey MD Work Phone: [facility] Work Phone: Start: 12-08-2024 End: 12-08-[address] Tani Grey MD -Medical Out Work Phone: Start: 12-08-2024 End: 12-08-[address] Tani Grey MD Work Phone: [facility] Work Phone: Start: 12-05-2024 End: 12-05-[address] Tani Grey MD -Medical Out Work Phone: Start: 12-05-2024 End: 12-05-[address] Tani Grey MD Work Phone: [facility] Work Phone: Start: 12-04-[address] Sean Griffith on [facility] Start: 12-03-2024 End: 12-03-[address] Louis Segal MD -[facility] Work Phone: Start: 12-03-2024 End: 12-03-2024 ambulatory Tani Grey Facility:[facility] Start: 11-26-2024 Non-patient / Non-visit Dr. López Guillory MD -[facility] Start: 11-26-2024 End: 11-26-[address] Tani Grey MD Work Phone: [facility] Work Phone: Start: 11-26-2024 End: 11-26-[address] Radha Brothers DO -Cardiovascular Services Work Phone: Start: 11-26-2024 End: 11-26-2024 ambulatory Radha Brothers Facility:[facility] Start: 11-14-2024 End: 11-14-[address] Tani Grey MD -[facility] Work Phone: Start: 11-14-2024 End: 11-14-2024 ambulatory Tani Grey Facility:[facility] Start: 11-06-2024 End: 11-06-2024 Patient encounter procedure Dulce SANCHEZ -[facility] Work Phone: Start: 11-06-2024 End: 11-06-2024 ambulatory Tani Grey Facility:[facility] Start: 10-30-2024 ambulatory Radha Brothers Facility: [facility] Start: 10-23-2024 End: 10-23-[address] Radha Brothers DO -Laboratory Work Phone: Start: 10-23-2024 End: 10-23-2024 ambulatory Radha Brothers Facility:[facility] Start: 09-30-2024 ambulatory López Guillory Facility:[facility] Start: 09-30-2024 Non-patient / Non-visit Dr. López Guillory MD -[facility] Start: 09-30-2024 End: 09-30-[address] Tani Grey MD -Cardiovascular Services Work Phone: Start: 09-30-2024 End: 09-30-2024 ambulatory Tani Grey Facility:[facility] Start: 09-08-2024 End: 09-08-2024 Patient encounter procedure Bright Wheeler DO -[facility] Work Phone: Start: 09-08-2024 End: 09-08-2024 ambulatory Brihgt Wheeler Facility:[facility] Start: 09-02-2024 End: 09-02-[address] Sean Dos Santos DO [facility] Work Phone: Start: 09-02-2024 End: 09-02-2024 ambulatory Sean Dos Santos Facility:[facility] Start: 08-29-2024 End: 08-29-2024 Patient encounter procedure Dulce SANCHEZ -[facility] Work Phone: Start: 08-29-2024 End: 08-29-2024 ambulatory Tnai Grey Facility:[facility] Start: 08-26-2024 End: 08-26-2024 ambulatory Anastacia Diaz NP Facility:[facility] Start: 08-26-2024 End: 08-26-2024 Patient encounter procedure Anastacia Diaz AFRICANA STUDIES PROFESSOR-C -[facility] Work Phone: Start: 08-26-2024 End: 08-26-2024 ambulatory Anastacia Diaz NP Facility:[facility] Start: 08-25-2024 End: 08-25-[address] Tani Grey MD -Laboratory, Specimen Work Phone: Start: 08-25-2024 End: 08-25-2024 ambulatory Tani Dariusz Que Facility:[facility] Start: 08-19-2024 End: 08-19-[address] Tani Grey MD -Laboratory, Phy Office 3rd Flr Start: 08-19-2024 End: 08-19-2024 ambulatory [facility] Facility:[facility] Start: 08-18-2024 End: 08-18-[address] Sean Dos Santos DO -Outpatient Breast Imaging Work Phone: Start: 08-18-2024 End: 08-18-2024 ambulatory Sean Dos Santos Facility:[facility] Start: 06-27-2024 End: 06-27-2024 [facility] Start: 06-27-2024 End: 06-27-2024 Patient encounter procedure Kianna Amadou ORTEGA Work Phone: OB/Gynecology Comment on above: Pelvic pain in femal e (Primary Dx); Screening for cervical cancer Start: 01-27-2024 End: 01-27-2024 Emergency department patient visit Dr. Tani Grey Work Phone: [facility]-Emergency Department Work Phone: Start: 01-26-2024 End: 01-26-2024 Emergency department patient visit Dr. Tani Grey Work Phone: [facility]-Emergency Department Work Phone: Start: 01-03-2024 End: 01-03-[address] Tani Grey Work Phone: [facility] Work Phone: Start: 01-03-2024 End: 01-03-[address] Tani Grey Work Phone: [facility]-Ultrasound, [facility] Work Phone: Start: 12-26-2023 End: 12-26-[address] Tani Grey Work Phone: [facility] Work Phone: Start: 12-26-2023 End: 12-26-[address] Tani Grey Work Phone: [facility]-Laboratory, Phy Office 3rd Flr Start: 12-06-[address] Tani khan Work Phone: [facility] Start: 12-06-2023 End: 12-06-[address] Tani Grey Work Phone: [facility] Work Phone: Start: 11-13-2023 End: 11-13-[address] [facility] Start: 10-09-2023 End: 10-09-[address] Tani Grey Work Phone: [facility] Work Phone: Start: 09-10-2023 End: 09-10-[address] Tani Grey Work Phone: [facility] Work Phone: Start: 09-10-2023 End: 09-10-[address] Tani Grey Work Phone: [facility]-Outpatient Breast Imaging Work Phone: Start: 09-07-2023 Non-patient / Non-visit Dr. Tani Grey Work Phone: [facility] Work Phone: Start: 09-06-2023 End: 09-06-[address] Tani Grey Work Phone: [facility] Work Phone: Start: 08-14-2023 End: 08-14-[address] Tani Grey Work Phone: [facility] Work Phone: Start: 08-14-2023 End: 08-14-[address] Tani Grey Work Phone: [facility] Work Phone: Start: 06-21-2023 End: 06-21-[address] Tani Grey Work Phone: [facility] Work Phone: Start: 05-14-2023 End: 05-14-[address] Tani Grey Work Phone: [facility] Work Phone: Start: 05-10-2023 End: 05-10-[address] Tani Grey Work Phone: [facility] Work Phone: Start: 05-10-2023 End: 05-10-[address] Tani Grey Work Phone: [facility]-Laboratory, Phy Office 3rd Ndr Start: 05-07-2023 End: 05-07-[address] Tani Grey Work Phone: [facility] Work Phone: Start: 05-07-2023 End: 05-07-[address] Tani Grey Work Phone: [facility] Work Phone: Start: 04-03-[address] Tani khan Work Phone: [facility] Start: 02-12-2023 End: 02-12-[address] Tani Grey Work Phone: [facility] Work Phone: Start: 02-05-2023 End: 02-05-[address] Tani Grey Work Phone: [facility] Work Phone: Start: 11-13-2022 End: 11-13-[address] Frederick Poe Work Phone: [facility] Start: 11-07-2022 End: 11-07-[address] Frederick Poe Work Phone: [facility] Work Phone: Start: 11-07-2022 End: 11-07-[address] Frederick Poe Work Phone: [facility]-Laboratory, Phy Office 3rd Ndr Start: 10-10-2022 End: 10-10-[address] Frederick Poe Work Phone: [facility] Start: 10-04-[address] Frederick Poe Work Phone: [facility] Start: 09-21-2022 End: 09-21-[address] Frederick Poe Work Phone: [facility] Start: 08-30-2022 End: 08-30-[address] Frederick Poe Work Phone: [facility] Work Phone: Start: 08-30-2022 End: 08-30-[address] Frederick Poe Work Phone: [facility] Start: 08-14-2022 End: 08-14-[address] Frederick Poe Work Phone: [facility] Start: 08-09-2022 End: 08-09-[address] Frederick Poe Work Phone: [facility] Start: 08-08-2022 End: 08-08-[address] Frederick Poe Work Phone: [facility] Work Phone: Start: 08-08-2022 End: 08-08-[address] Frederick Poe Work Phone: [facility] Start: 07-04-2022 End: 07-04-[address] Frederick Poe Work Phone: [facility]-Outpatient Breast Imaging Start: 06-06-2022 End: 06-06-[address] Frederick Poe Work Phone: [facility] Start: 05-11-2022 End: 05-11-[address] Frederick Poe Work Phone: [facility]-MRI - [facility] Start: 05-08-2022 End: 05-08-[address] Frederick Poe Work Phone: [facility]-Nuclear Medicine, [facility] Start: 04-27-[address] Frederick Poe Work Phone: [facility] Start: 04-27-2022 End: 04-27-[address] Frederick Poe Work Phone: [facility] Start: 01-25-2022 End: 01-25-[address] Frederick Poe Work Phone: [facility] Start: 01-12-2021 End: 01-12-2021 Telephone encounter Juan José Hoffman Work Phone: Gastroenterology Comment on above: Received Outside Med ical Records Start: 12-28-2020 End: 12-28-2020 Patient encounter procedure External Provider [facility] Start: 12-28-2020 Results Only External Provider Exter nal-[facility] Start: 12-27-2020 End: 12-27-2020 Patient encounter procedure Thor Fleming Work Phone: [facility] Start: 12-27-2020 Results Only Thor Fleming Work Phone: Gastroenterology Procedures Date Procedure Procedure Detail Performing Clinician Start: 06-08-[address] Tani khan MD Work Phone: Start: 05-14-2025 Vitamin D, 25-hydroxy measurement Dr. Carroll Grey MD Work Phone: Comment on above: Vitamin D StatusDeficiency: <20 ng/mL (5 0nmol/L)Insufficiency: 20-30 ng/mL (50-75 nmol/L)Sufficiency: 30-100 ng/mL (75-250 nmol/L)Toxicity: >100 ng/mL (>250 nmol/L) Start: 04-15-[address] Tani khan MD Work Phone: Start: 04-15-2025 Total iron binding capacity measurement Dr. Tani Grey MD Work Phone: Start: 03-11-[address] Tani Grey MD Work Phone: Start: 02-09-2025 Vitamin D, 25-hydroxy measurement Dr. Carroll Grey MD Work Phone: Comment on above: Vitamin D StatusDeficiency: <20 ng/mL (5 0nmol/L)Insufficiency: 20-30 ng/mL (50-75 nmol/L)Sufficiency: 30-100 ng/mL (75-250 nmol/L)Toxicity: >100 ng/mL (>250 nmol/L) Start: 01-09-2025 SARS-CoV-2, Influenza & RSV (PCR) Dr. Carroll Grey MD Work Phone: Start: 01-09-2025 X-ray of cervical spine Dr. Tani Grey MD Work Phone: Start: 01-09-2025 CT of head without contrast Dr. Tani Grey MD Work Phone: Start: 12-24-[address] Tani khan MD Work Phone: Start: 12-23-[address] Tani Grey MD Work Phone: Start: 12-22-2024 Total iron binding capacity measurement Dr. Tani Grey MD Work Phone: Start: 12-05-2024 Measurement of occult blood in stool specimen using immunoassay Dr. Tani Grey MD Work Phone: Start: 12-03-[address] Tani Grey MD Work Phone: Start: 11-26-2024 Total iron binding capacity measurement Dr. Tani Grey MD Work Phone: Comment on above: Previous reported result: TNP ug/dLEdite d by: JAMEE on 11/27/24:1431 AMENDED REPORT 11/27/24 1431 TIBC previously reported as: Test not performed ug/dL Start: 11-14-2024 Measurement of renal function Dr. Tani owen MD Work Phone: Comment on above: GFR Calc Start: 11-14-2024 Vitamin D, 25-hydroxy measurement Dr. Carroll Grey MD Work Phone: Comment on above: Vitamin D 25(OH) Status Range Deficiency <20 ng/mL (50nmol/L) Insufficiency 20 - 30 ng/mL (50 - 75 nmol/L) Sufficiency 30 - 100 ng/mL (75 - 250 nmol/L) Toxicity >100 ng/mL (>250 nmol/L) Start: 11-14-2024 CT of abdominal aorta with contrast Dr. Tani Grey MD Work Phone: Start: 08-26-[address] Tani Grey MD Work Phone: Start: 08-25-2024 Measurement of occult blood in stool specimen using immunoassay Dr. Tani Grey MD Work Phone: Start: 08-18-[address] Tani Grey MD Work Phone: Start: 06-04-2024 Measurement of renal function Dr. Tani owen MD Work Phone: Comment on above: GFR Calc Start: 01-27-2024 CT of limb regions Dr. Tani Grey Work Phone: Start: 01-27-2024 X-ray of radius and ulna Dr. Tani Grey Work Phone: Start: 01-26-2024 X-ray of radius and ulna Dr. Tani Grey Work Phone: Start: 01-03-[address] Tani Grey Work Phone: Start: 09-10-[address] Tani Grey Work Phone: Start: 08-14-2023 Dual energy X-ray absorptiometry Dr. Tani Grey Work Phone: Start: 08-14-[address] Tani Grey Work Phone: Start: 08-14-[address] Tani Grey Work Phone: Start: 05-07-[address] Tani Grey Work Phone: Start: 02-05-[address] Tani Grey Work Phone: Start: 08-30-2022 MRI of lumbar spine Dr. Frederick Poe Work Phone: Start: 08-09-2022 X-ray of lumbar spine, two or three views Dr. Frederick Poe Work Phone: Start: 08-08-[address] Frederick Poe Work Phone: Start: 07-04-[address] Frederick Poe Work Phone: Start: 05-11-2022 MRI of brain with contrast Dr. Frederick benitez Work Phone: Start: 05-08-2022 Radionuclide whole body bone study Dr. Regis Poe Work Phone: Start: 12-28-2020 End: 12-28-2020 EXTERNAL LAB External Provider Start: 12-28-2020 EXTERNAL PROCEDURE External Provider Start: 12-27-2020 PT ED PATIENT INFORMATION Thor Fleming Work Phone: Start: 10-15-2013 Colonoscopy Thor Fleming Start: 10-07-2013 Adult depression screening assessment Thor Fleming Start: 06-28-2012 Lipid 1996 panel - Serum or Plasma Kianna Tobar APRN.CNP Work Phone: Plan of Treatment Date Care Activity Detail Author Start: 11-16-2032 Urine microalbumin profile DTaP,Tdap,Td Vaccine (3 - Td or Tdap) [facility] Start: 08-19-2025 MG Breast - bilatera l Screening [facility] Start: 06-08-2025 [facility] Start: 04-15-2025 [facility] Start: 03-11-2025 Egd transoral contro l bleeding any method EGD CONTROL BLEEDING ANY [facility] Start: 03-11-[address] [facility] Start: 01-08-2025 [facility] Start: 12-15-2024 Iv infusion therapy/prophylaxis /dx 1st to 1 hr THER/PROPH/DIAG IV INF [facility] Start: 12-08-2024 Iv infusion therapy/prophylaxis /dx 1st to 1 hr THER/PROPH/DIAG IV INF [facility] Start: 12-05-2024 Patient referral [facility] Work Phone: Start: 12-04-2024 Administration of bl ood product [facility] Start: 12-04-2024 [facility] Start: 12-03-2024 Patient referral [facility] Work Phone: Start: 07-01-2024 End: 07-01-2024 Manual pelvic examination 07/01/2024 2:30 PM EDT Procedure OB/Gynecology [address] [address] PELVIC ULTRASOUND OB/Gynecology Comment on above: PELVIC ULTRASOUND Start: 06-27-2024 End: 06-27-2025 US Pelvis PELVIC US [facility] Anc Imaging Routine Pelvic pain in female Expected: 06/27/2024, Expires: 06/27/2025 [facility] Work Phone: Comment on above: Expected: 06/27/2024 , Expires: 06/27/2025 Start: 01-27-2024 Diabetes Screening Diabetes Screenin g [facility] Start: 01-26-2024 Bacteria identified in Blood by Culture Blood Culture [facility] Start: 01-26-2024 [facility] Start: 01-26-2024 End: 01-26-2024 Blood culture [facility] Start: 09-24-2023 Advance Directive Discussion Advance Directive Discussion [facility] Start: 08-14-2023 Dual energy X-ray absorptiometry Dexa Bone Density Study [facility] Start: 08-14-2023 DXA Bone [Mass/Area] Bone density [facility] Start: 05-25-2021 Influenza vaccination INFLUENZ A (Season Ended) [facility] Start: 2020 ADVANCE DIRECTIVE DISCUSSION ADVANCE DIRECTIVE DISCUSSION [facility] Start: 2020 BONE DENSITY BONE DENSITY [facility] Start: 2020 PNEUMOVAX AGE 65 AND OVER WITH 5YR LOOKBACK (#1) PNEUMOVAX AGE 65 AND OVER WITH 5YR LOOKBACK (#1) [facility] Start: 2020 Screening for osteoporosis Bone Density Screening [facility] Start: 10-15-2018 Screening for malign ant neoplasm of colon [facility] Start: 06-28-2017 Lipid panel Lipid Screening [facility] Start: 06-28-2017 LIPID SCREEN LIPID SCREEN [facility] Start: 06-28-2015 DIABETES SCREEN DIABETES SCREEN [facility] Start: 10-07-2014 Adult depression screening assessment DEPRESSION SCREENING [facility] Start: 2005 Screening for malign ant neoplasm of colon [facility] Start: 2005 SHINGRIX VACCINE (1 of 2) ALCAZAR GRIX VACCINE (1 of 2) [facility] Start: 2000 Screening for malign ant neoplasm of colon [facility] Start: 1995 Mammography MAMMOGRAM [facility] Start: 1995 Screening for malign ant neoplasm of breast Mammogram Screening [facility] Start: 1974 Urine microalbumin profile DTAP,TDAP,TD (1 - Tdap) 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 Start: 1973 Anxiety Screening Anxiety Screening [facility] Start: 1973 Depression Screening Depression Scre ening [facility] Start: 1973 HEPATITIS C SCREENING HEPATITIS C [facility] Start: 1973 Hepatitis C screening Hepatitis C [facility] Start: 1973 HIV SCREENING HIV SCREENING [facility] Start: 1973 SPIROMETRY SPIROMETRY [facility] Bacteria identified in Urine by Culture URINE CULTURE Microbiology Routine Pelvic pain in female 06/27/2024 3:17 PM EDT [facility] BACTERIAL VAGINOSIS NAAT BACTERI AL VAGINOSIS NAAT Lab Routine Pelvic pain in female 06/27/2024 3:17 PM EDT [facility] Calcium [Mass/volume ] in Serum or Plasma [facility] GISELL/TRICHOMONAS NAAT GISELL /TRICHOMONAS NAAT Lab Routine Pelvic pain in female 06/27/2024 3:17 PM EDT [facility] CBC W Auto Different ial panel - Blood [facility] CBC W Auto Different ial panel - Blood [facility] CBC W Auto Different ial panel - Blood [facility] CBC W Auto Different ial panel - Blood [facility] CBC W Auto Different ial panel - Blood [facility] Comprehensive metabo lic 1999 panel - Serum or Plasma [facility] Comprehensive metabo lic 1999 panel - Serum or Plasma [facility] Comprehensive metabo lic 1999 panel - Serum or Plasma [facility] CT Abdomen and Pelvi s W contrast IV [facility] CT Chest [facility] DXA Bone [Mass/Area] Bone density [facility] Ferritin [Mass/volum e] in Serum or Plasma [facility] Iron and Iron bindin g capacity panel - Serum or Plasma [facility] MG Breast - bilatera l Screening [facility] MG Breast Diagnostic [facility] MR Lumbar spine [facility] Work Phone: PAP TEST PAP TEST Lab Rou leatha Pelvic pain in female Screening for cervical cancer 06/27/2024 3:17 PM EDT [facility] Patient Education [facility] Work Phone: Patient referral [facility] Work Phone: PT ED PATIENT INFORMATION PT ED PATIENT INFORMATION Other 12/27/[address] [facility] US Extremity limited [facility] Immunizations Immunization Date Immunization Notes Care Provider Fa cility 06-27-[address] Frederick Poe Work Phone: [facility] 03-21-2021 Covid (Moderna) Dr. Frederick macedo Work Phone: [facility] 03-07-2021 Alisiaid (Moderna) Dr. Frederick macedo Work Phone: [facility] Payers Date Payer Category Payer Medicare AETNA MEDICARE A ETNA MEDICARE HMO [id number] 2022-Present [phone] [address] [place] [address] [facility] [id number] 2022 Private Health Insurance [id number] 2021 Medicare [id number] 2021 Self-pay [id number] 2020 Medicare HUMANA MEDICARE HUMANA MEDICARE PPO [id number] 2020-Present PPO [id number] 2016 Medicare [id number] 2016 Unknown [facility] [place] [id number] Medicare [id number] Unknown AARP MCR ADV [id number] Unknown [employer] FOR MAMMOGRAMS [id number] Unknown [id number] 2.16.840.1.329106.3.579.2. 462 Unknown [id number] 2.16.840.1.309000.3.579.2. 462 Unknown [id number] 2.16.840.1.403951.3.579.2. 462 Unknown [id number] 2.16.840.1.014158.3.579.2. 462 Unknown [id number] 2.16.840.1.760318.3.579.2. 462 Unknown [id number] 2.16.840.1.828719.3.579.2. 462 Unknown [id number] 2.16.840.1.395120.3.579.2. 462 Unknown [id number] 2.16.840.1.345797.3.579.2. 462 Unknown [id number] 2.16.840.1.103825.3.579.2. 462 Unknown [id number] 2.16.840.1.149524.3.579.2. 462 Unknown [id number] 2.16.840.1.803355.3.579.2. 462 Unknown [id number] 2.16.840.1.682807.3.579.2. 462 Unknown [id number] 2.16.840.1.276782.3.579.2. 462 Unknown [id number] 2.16.840.1.812868.3.579.2. 462 Unknown [id number] 2.16.840.1.358586.3.579.2. 462 Unknown [id number] 2.16.840.1.607301.3.579.2. 462 Unknown [id number] 2.16.840.1.312470.3.579.2. 462 Unknown [id number] 2.16.840.1.396985.3.579.2. 462 Unknown [id number] 2.16.840.1.172772.3.579.2. 462 Unknown [id number] 2.16.840.1.503517.3.579.2. 462 Unknown [id number] 2.16.840.1.371862.3.579.2. 462 Unknown [id number] 2.16.840.1.283030.3.579.2. 462 Unknown [id number] 2.16840.1.279472.3.579.2. 462 Unknown [id number] 2.16.840.1.361591.3.579.2. 462 Unknown [id number] 2.16.840.1.585925.3.579.2. 462 Unknown [id number] 2.16.840.1.314713.3.579.2. 462 Unknown [id number] 2.16.840.1.355383.3.579.2. 462 Unknown [id number] 2.16.840.1.760866.3.579.2. 462 Unknown [id number] 2.16.840.1.479710.3.579.2. 462 Unknown [id number] 2.16.840.1.194399.3.579.2. 462 Unknown [id number] 2.16.840.1.155314.3.579.2. 462 Unknown [id number] 2.16.840.1.241906.3.579.2. 462 Unknown [id number] 2.16.840.1.274900.3.579.2. 462 Unknown [id number] 2.16.840.1.567965.3.579.2. 462 Unknown [id number] 2.16.840.1.580197.3.579.2. 462 Social History Date Type Detail Facility Start: 10-15-2013 End: 03-11-2025 Tobacco smoking status NHIS Current every day smoker [facility] History of tobacco use Cigarette Smoker [facility] Start: 10-15-2013 End: 06-27-2024 Alcohol intake Current drinker of alcohol (finding) [facility] Start: 12-05-2012 End: 06-27-2024 Tobacco Comment Pt down to 1or 2 cigarettes a day [facility] Start: 09-05-2013 Alcohol Comment occasional wine [facility] Start: 1955 Sex Assigned At Not on file [facility] Exposure to SARS-CoV -2 (event) Unable to assess [facility] Start: 04-27-2022 End: 01-27-2024 Tobacco smoking status NHIS Unknown if ever smoked [facility] Start: 11-16-2020 Cigarettes [facility] Start: 1955 Sex Assigned At Female W [facility] Start: 06-27-2024 Tobacco use and exposure Smokeless tobacco non-user [facility] Start: 06-27-2024 History of Social function [facility] Start: 06-27-2024 Tobacco use panel [facility] National Score (1-100), lower number is lower risk [address] [facility] Start: 12-06-2024 End: 01-08-2025 Sex Female (finding) [facility] Medical Equipment Procedure Code Equipment Code Equipment Origin al Text Equipment Identifier Dates Parathyroidectomy DRESSING,SURGI AAYUSH 4x8 FDA Start: 05-12-2024 Parathyroidectomy SUTURE,LIGA CL IP MED [id number] FDA Start: 05-12-2024 Parathyroidectomy SUTURE,LIGA CL IP MED [id number] FDA Start: 05-12-2024 Parathyroidectomy DRESSING,SURGI AAYUSH 4x8 FDA Start: 05-12-2024 Parathyroidectomy SUTURE,LIGA CL IP MED [id number] FDA Start: 05-12-2024 Parathyroidectomy SUTURE,LIGA CL IP MED [id number] FDA Start: 05-12-2024 Parathyroidectomy DRESSING,SURGI AAYUSH 4x8 FDA Start: 05-12-2024 Parathyroidectomy SUTURE,LIGA CL IP MED [id number] FDA Start: 05-12-2024 Parathyroidectomy SUTURE,LIGA CL IP MED [id number] FDA Start: 05-12-2024 Parathyroidectomy DRESSING,SURGI AAYUSH 4x8 FDA Start: 05-12-2024 Parathyroidectomy SUTURE,LIGA CL IP MED [id number] FDA Start: 05-12-2024 Parathyroidectomy SUTURE,LIGA CL IP MED [id number] FDA Start: 05-12-2024 Parathyroidectomy DRESSING,SURGI AAYUSH 4x8 FDA Start: 05-12-2024 Parathyroidectomy SUTURE,LIGA CL IP MED [id number] FDA Start: 05-12-2024 Parathyroidectomy SUTURE,LIGA CL IP MED [id number] FDA Start: 05-12-2024 Parathyroidectomy DRESSING,SURGI AAYUSH 4x8 FDA Start: 05-12-2024 Parathyroidectomy SUTURE,LIGA CL IP MED [id number] FDA Start: 05-12-2024 Parathyroidectomy SUTURE,LIGA CL IP MED [id number] FDA Start: 05-12-2024 Parathyroidectomy DRESSING,SURGI AAYUSH 4x8 FDA Start: 05-12-2024 Parathyroidectomy SUTURE,LIGA CL IP MED LT200 FDA Start: 05-12-2024 Parathyroidectomy SUTURE,LIGA CL IP MED LT200 FDA Start: 05-12-2024 Parathyroidectomy DRESSING,SURGI AAYUSH 4x8 FDA Start: 05-12-2024 Parathyroidectomy SUTURE,LIGA CL IP MED LT200 FDA Start: 05-12-2024 Parathyroidectomy SUTURE,LIGA CL IP MED LT200 FDA Start: 05-12-2024 Parathyroidectomy DRESSING,SURGI AAYUSH 4x8 FDA Start: 05-12-2024 Parathyroidectomy SUTURE,LIGA CL IP MED LT200 FDA Start: 05-12-2024 Parathyroidectomy SUTURE,LIGA CL IP MED LT200 FDA Start: 05-12-2024 Parathyroidectomy DRESSING,SURGI AAYUSH 4x8 FDA Start: 05-12-2024 Parathyroidectomy SUTURE,LIGA CL IP MED LT200 FDA Start: 05-12-2024 Parathyroidectomy SUTURE,LIGA CL IP MED LT200 FDA Start: 05-12-2024 Parathyroidectomy DRESSING,SURGI AAYUSH 4x8 FDA Start: 05-12-2024 Parathyroidectomy SUTURE,LIGA CL IP MED LT200 FDA Start: 05-12-2024 Parathyroidectomy SUTURE,LIGA CL IP MED LT200 FDA Start: 05-12-2024 Parathyroidectomy DRESSING,SURGI AAYUSH 4x8 FDA Start: 05-12-2024 Parathyroidectomy SUTURE,LIGA CL IP MED LT200 FDA Start: 05-12-2024 Parathyroidectomy SUTURE,LIGA CL IP MED LT200 FDA Start: 05-12-2024 SUTURE,LIGA CLIP MED LT200 FDA Start: 07-04-2021 SUTURE,LIGA CLIP MED LT200 FDA Start: 07-04-2021 SUTURE,LIGA CLIP SM LT-100 FDA Start: 07-04-2021 SUTURE,LIGA CLIP SM LT-100 FDA Start: 07-04-2021 SUTURE,LIGA CLIP MED LT200 FDA Start: 07-04-2021 SUTURE,LIGA CLIP MED LT200 FDA Start: 07-04-2021 SUTURE,LIGA CLIP SM LT-100 FDA Start: 07-04-2021 SUTURE,LIGA CLIP SM LT-100 FDA Start: 07-04-2021 SUTURE,LIGA CLIP MED LT200 FDA Start: 07-04-2021 SUTURE,LIGA CLIP MED LT200 FDA Start: 07-04-2021 SUTURE,LIGA CLIP SM LT-100 FDA Start: 07-04-2021 SUTURE,LIGA CLIP SM LT-100 FDA Start: 07-04-2021 SUTURE,LIGA CLIP MED LT200 FDA Start: 07-04-2021 SUTURE,LIGA CLIP MED LT200 FDA Start: 07-04-2021 SUTURE,LIGA CLIP SM LT-100 FDA Start: 07-04-2021 SUTURE,LIGA CLIP SM LT-100 FDA Start: 07-04-2021 SUTURE,LIGA CLIP MED LT200 FDA Start: 07-04-2021 SUTURE,LIGA CLIP MED LT200 FDA Start: 07-04-2021 SUTURE,LIGA CLIP SM LT-100 FDA Start: 07-04-2021 SUTURE,LIGA CLIP SM LT-100 FDA Start: 07-04-2021 SUTURE,LIGA CLIP MED LT200 FDA Start: 07-04-2021 SUTURE,LIGA CLIP MED LT200 FDA Start: 07-04-2021 SUTURE,LIGA CLIP SM LT-100 FDA Start: 07-04-2021 SUTURE,LIGA CLIP SM LT-100 FDA Start: 07-04-2021 SUTURE,LIGA CLIP MED LT200 FDA Start: 07-04-2021 SUTURE,LIGA CLIP MED LT200 FDA Start: 07-04-2021 SUTURE,LIGA CLIP SM LT-100 FDA Start: 07-04-2021 SUTURE,LIGA CLIP SM LT-100 FDA Start: 07-04-2021 SUTURE,LIGA CLIP MED LT200 FDA Start: 07-04-2021 SUTURE,LIGA CLIP MED LT200 FDA Start: 07-04-2021 SUTURE,LIGA CLIP SM LT-100 FDA Start: 07-04-2021 SUTURE,LIGA CLIP SM LT-100 FDA Start: 07-04-2021 SUTURE,LIGA CLIP MED LT200 FDA Start: 07-04-2021 SUTURE,LIGA CLIP MED LT200 FDA Start: 07-04-2021 SUTURE,LIGA CLIP SM LT-100 FDA Start: 07-04-2021 SUTURE,LIGA CLIP SM LT-100 FDA Start: 07-04-2021 SUTURE,LIGA CLIP MED LT200 FDA Start: 07-04-2021 SUTURE,LIGA CLIP MED LT200 FDA Start: 07-04-2021 SUTURE,LIGA CLIP SM LT-100 FDA Start: 07-04-2021 SUTURE,LIGA CLIP SM LT-100 FDA Start: 07-04-2021 SUTURE,LIGA CLIP MED LT200 FDA Start: 07-04-2021 SUTURE,LIGA CLIP MED LT200 FDA Start: 07-04-2021 SUTURE,LIGA CLIP SM LT-100 FDA Start: 07-04-2021 SUTURE,LIGA CLIP SM LT-100 FDA Start: 07-04-2021 SUTURE,LIGA CLIP MED LT200 FDA Start: 07-04-2021 SUTURE,LIGA CLIP MED LT200 FDA Start: 07-04-2021 SUTURE,LIGA CLIP SM LT-100 FDA Start: 07-04-2021 SUTURE,LIGA CLIP SM LT-100 FDA Start: 07-04-2021 SUTURE,LIGA CLIP MED LT200 FDA Start: 07-04-2021 SUTURE,LIGA CLIP MED LT200 FDA Start: 07-04-2021 SUTURE,LIGA CLIP SM LT-100 FDA Start: 07-04-2021 SUTURE,LIGA CLIP SM LT-100 FDA Start: 07-04-2021 SUTURE,LIGA CLIP MED LT200 FDA Start: 07-04-2021 SUTURE,LIGA CLIP MED LT200 FDA Start: 07-04-2021 SUTURE,LIGA CLIP SM LT-100 FDA Start: 07-04-2021 SUTURE,LIGA CLIP SM LT-100 FDA Start: 07-04-2021 SUTURE,LIGA CLIP MED LT200 FDA Start: 07-04-2021 SUTURE,LIGA CLIP MED LT200 FDA Start: 07-04-2021 SUTURE,LIGA CLIP SM LT-100 FDA Start: 07-04-2021 SUTURE,LIGA CLIP SM LT-100 FDA Start: 07-04-2021 SUTURE,LIGA CLIP MED LT200 FDA Start: 07-04-2021 SUTURE,LIGA CLIP MED LT200 FDA Start: 07-04-2021 SUTURE,LIGA CLIP SM LT-100 FDA Start: 07-04-2021 SUTURE,LIGA CLIP SM LT-100 FDA Start: 07-04-2021 SUTURE,LIGA CLIP MED LT200 FDA Start: 07-04-2021 SUTURE,LIGA CLIP MED LT200 FDA Start: 07-04-2021 SUTURE,LIGA CLIP SM LT-100 FDA Start: 07-04-2021 SUTURE,LIGA CLIP SM LT-100 FDA Start: 07-04-2021 SUTURE,LIGA CLIP MED LT200 FDA Start: 07-04-2021 SUTURE,LIGA CLIP MED LT200 FDA Start: 07-04-2021 SUTURE,LIGA CLIP SM LT-100 FDA Start: 07-04-2021 SUTURE,LIGA CLIP SM LT-100 FDA Start: 07-04-2021 SUTURE,LIGA CLIP MED LT200 FDA Start: 07-04-2021 SUTURE,LIGA CLIP MED LT200 FDA Start: 07-04-2021 SUTURE,LIGA CLIP SM LT-100 FDA Start: 07-04-2021 SUTURE,LIGA CLIP SM LT-100 FDA Start: 07-04-2021 SUTURE,LIGA CLIP MED LT200 FDA Start: 07-04-2021 SUTURE,LIGA CLIP MED LT200 FDA Start: 07-04-2021 SUTURE,LIGA CLIP SM LT-100 FDA Start: 07-04-2021 SUTURE,LIGA CLIP SM LT-100 FDA Start: 07-04-2021 SUTURE,LIGA CLIP MED LT200 FDA Start: 07-04-2021 SUTURE,LIGA CLIP MED LT200 FDA Start: 07-04-2021 SUTURE,LIGA CLIP SM LT-100 FDA Start: 07-04-2021 SUTURE,LIGA CLIP SM LT-100 FDA Start: 07-04-2021 SUTURE,LIGA CLIP MED LT200 FDA Start: 07-04-2021 SUTURE,LIGA CLIP MED LT200 FDA Start: 07-04-2021 SUTURE,LIGA CLIP SM LT-100 FDA Start: 07-04-2021 SUTURE,LIGA CLIP SM LT-100 FDA Start: 07-04-2021 SUTURE,LIGA CLIP MED LT200 FDA Start: 07-04-2021 SUTURE,LIGA CLIP MED LT200 FDA Start: 07-04-2021 SUTURE,LIGA CLIP SM LT-100 FDA Start: 07-04-2021 SUTURE,LIGA CLIP SM LT-100 FDA Start: 07-04-2021 SUTURE,LIGA CLIP MED LT200 FDA Start: 07-04-2021 SUTURE,LIGA CLIP MED LT200 FDA Start: 07-04-2021 SUTURE,LIGA CLIP SM LT-100 FDA Start: 07-04-2021 SUTURE,LIGA CLIP SM LT-100 FDA Start: 07-04-2021 Goals Date Patient Goal Desired Activity /State Mental Status Date Assessment Result Facility 03-11-2025 Cognitive function Voice/Name [facility] Work Phone: 01-08-2025 Cognitive function Level Of Cons ciousness Awake;Alert;Appropriate;Follow s Commands [facility] Work Phone: 12-24-2024 Cognitive function Voice/Name [facility] Work Phone: 12-12-2024 Cognitive function Voice/Name [facility] Work Phone: 12-10-2024 Cognitive function Voice/Name [facility] Work Phone: 12-08-2024 Cognitive function Voice/Name [facility] Work Phone: 12-05-2024 Cognitive function Awake;Alert;A ppropriate;Follow s Commands [facility] Work Phone: 12-04-2024 Cognitive function Voice/Name [facility] Work Phone: 10-02-2023 Cognitive function Voice/Name [facility] Work Phone: 04-03-2023 Cognitive function Awake;Alert;A ppropriate;Follow s Commands [facility] Work Phone: 10-04-2022 Cognitive function Voice/Name [facility] Work Phone: 03-21-2022 Cognitive function Level Of Cons ciousness Awake;Alert;Appropriate;Follow s Commands [facility] Work Phone: Clinical Notes 01-12-2021 to 06-08-2025 Note Date & Type Note Facility 06-08-2025 Progress note [facility] 06-08-2025 Progress note Note Date/Time June 08, 2025 2:24pm [facility] [address] [place] [address] OFFICE VISIT Date of Service: 06/08/25 1401 MR#: [id number] Acct: [id number] Name: MATY HIGH Rep #: [id number] : 1955 From: Anastacia Belle ch, NP [employer]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 Status: Signed HPI Subjective Date of Service 06/08/25 Chief Complaint Breast cancer on treatment History of Present Illness 70-year-old female who presented after an abnormal screening mammogram. No palpable abnormalities felt by patient or surgery. May 31, 2021 Right breast, core biopsy:Invasive ductal carcinoma with the following characteristics:Nuclear grade ?1/3Maximal length ?10mm ANTIBODY /CLONE [id number] (DO-7) negativeKi-67 (30-9) positiveCK8 (79iutoC28)positiveCK5-6 (D5 & 1684) negativeCalponin-1 (CR558A) pcrjbwhzG50 (BC28)negativeE-Cad (ECH-6) positiveCOX-2 (SP21) positiveMORPHOMETRIC ANALYSIS ER (clone 6F11) positive, 95% strong intensity ME (clone 16/1E2) positive, 65% moderate intensityHer-2Neu (clone CB11) negative 0 July 04, 2021 right breast partial mastectomy with sentinel lymph node biopsy: MICROSCOPIC DIAGNOSISA. Right breast mass, lumpectomy with wire localization:Invasive ductal carcinoma.See cancer summary in the comment section.B. Right axillary lymph node dissection:Twelve out of twelve lymph nodes, negative for metastatic carcinoma.SJ:charlette 07/07/2021OMMENTBREAST CANCER SUMMARYProcedure ?lumpectomy with needle localization Specimen laterality ?Invasive tumor:Tumor site ?8 o?clock, 4 cm from the nippleTumor size ?1.2 x 1.1 x 1 cmHistologic type?invasive ductal carcinoma (not otherwise specified)Histologic grade (Nottinghamgrade):Glandular/tubular differentiation score -2Nuclear pleomorphism score -2Mitotic count score -1Overall grade ?grade 1(score of 5)Tumor focality ?single focus of invasive carcinomaDuctal carcinoma in situ ?not identifiedLobular carcinoma in situ -not identifiedTumor extension:Skin ?not presentNipple ?not applicableSkeletal muscle ?no skeletal muscle is present.Margins:Invasive carcinoma margin ?the tumor is 0.4 cm away from the closest posterior margin.Regional lymph nodes:Total number of lymph nodes examined ?12Number of sentinel lymph nodes examined -0Number of lymph nodes with macrometastases, micrometastases or isolated tumor cells -0Treatment effect ?no known presurgicaltherapy.Lymphvascular invasion ?not identifiedDermal lymphvascular invasion ?notapplicableAdditional Pathologic Findings ?intraductal hyperplasia without atypia.Ancillary Studies: Previously performed on same tumor ([id number]/ [id number])ER: positive (>95%, strong intensity)ME: positive (65%, moderate intensity)Fqs2iur: negative (0)Microcalcifications ?not identifiedClinical History -Please make reference to previous specimen ([id number]) right breast, core biopsy with diagnosis of invasive ductal carcinoma.PATHOLOGIC STAGE: [id number] pMx Treatment summary: July 04, 2021 right breast partial mastectomy with sentinel lymph node biopsy. Adjuvant radiation: 08/15/2021 ? 08/26/2021: received 2850 cGy in 5 fractions to the right partial breast Adjuvant hormonal therapy with Arimidex: August 29, 2021- Adjuvant chemotherapy: Declined no Oncotype DX done. Interval History The patient is presenting to clinic accompanied for a planned 6 month follow up. Reports good tolerance and adherence to anastrozole. No change in mild chronic exertional dyspnea. + Chronic back- unchanged even with packing, as she is in the process of moving. Specifically denies weight loss, headaches, hot flashes, joint pain, dizziness, CP, palpitations, cough, abd pain, swelling of her extremities. Performs breast self exam monthly and denies any changes. [facility] Medical History Screening for breast cancer Low iron History of GI bleed Wears hearing aid Wears glasses Cancer Easy bruising History of ulceration Gastric reflux Shortness of breath on exertion Emphysema, unspecified COPD (chronic obstructive pulmonary disease) History of pain when walking History of edema Hyperparathyroidism Encounter for screening for malignant neoplasm of lung Encounter for screening for malignant neoplasm of lung in current smoker with 30pack year history or greater Sciatic leg pain Wears dentures Post-menopausal Depression High cholesterol Back pain Chronic cough Hypertension Iron deficiency anemia due to chronic blood loss Osteopenia Invasive ductal carcinoma of right breast Arthritis GERD (gastroesophageal reflux disease) Smoking greater than 30 pack years Emphysema lung Bronchitis Asthma Surgical History History of esophagogastroduodenoscopy (EGD) H/O parathyroidectomy S/P parathyroidectomy Hx of colonoscopy Hx of fusion of cervical spine Status post right breast lumpectomy S/P lumpectomy, right breast History of tonsillectomy and adenoidectomy Hx of colonoscopy (~2019) H/O tubal ligation Family History Mother Diabetes Hypertension Gastric ulcer Hyperlipidemia CVA (cerebral vascular accident) Father Diabetes COPD (chronic obstructive pulmonary disease) Hypertension Prostate cancer Aunt Breast cancer Social History Smoking Status: Current every day smoker (Patient smoked today.) tobacco type: cigarettes Tobacco: How many years used: 45 how long ago did patient quit smoking: down to only smoking 4 cigarettes/day second hand exposure: Yes quit status: considering quitting alcohol intake: current alcohol intake frequency: holidays/special occasions only substance use type: marijuana caffeine: Yes what type of physical activity do you participate in: none frequency: does not exercise laine/scientology: None seatbelt use: always do you feel safe at home: Yes additional social history: ROS ROS Narrative Negative except as documented in the interval HPI Intake Vital Signs 09/02/24 15:12 12/22/24 10:33 06/08/25 14:05 Height 5 ft 2 in 5 ft 2 in 5 ft 2 in Weight: 128 lb 9 oz BMI 23.5 BP 147/78 H Blood Pressure Location Lt brachial Position Sitting Respiration 18 Pulse 89 Pulse Source Monitor Temp 98.3 F Temperature Source Temporal Artery Pulse Oximetry (%) 92 Oxygen Delivery Method room air Intake Accompanied by: Self Is patient in pain?: No Allergies latex Adverse Reaction (Intermediate, Verified 06/08/25 14:08) rash Penicillins Adverse Reaction (Intermediate, Verified 06/08/25 14:08) Rash Medications ?Medication ?Instructions ?Recorded ?Confirmed ?Type albuterol sulfate 90 mcg/actuation 2 puff inhalation Q 4H PRN 06/23/20 06/08/25 Rx aerosol inhaler shortness of breath or wheez ing #1 device pravastatin 40 mg tablet 40 mg PO QHS 05/14/23 History budesonide 160 mcg-glycopyr 9 2 inh inhalation BID 06/08/25 History mcg-formot 4.8 mcg/actuation HFA inhaler (Breztri Aerosphere) potassium chloride 20 mEq 20 meq PO QDAY 02/07/2405/25 History tablet,extended release amlodipine 5 mg tablet 5 mg PO DAILY 03/19/2406/08 History bupropion HCl (smoking deter) 150 150 mg PO BID 06/08/25 History mg tablet,12 hr sustained-release(smoking deterrent) acetaminophen 500 mg tablet 500 mg PO Q6H PRN PRN Pain Score 05/13/24 06/08/25 Rx 1-10 #0 tabs cholecalciferol (vitamin D3) 125 125 mcg PO DAILY #30 caps 05/13/24 06/08/25 Rx mcg (5,000 unit) capsule dicyclomine 10 mg capsule 10 mg PO BID #30 caps 06/08/25 Rx baclofen 10 mg tablet 10 mg PO TID PRN abdominal p ain 12/03/24 06/08/25 History omeprazole 40 mg capsule,delayed 40 mg PO DAILY 06/08/25 History release sucralfate 1 gram tablet 1 g PO TID 12/03/24 06/08/25 History venlafaxine 150 mg 150 mg PO DAILY 12/03/24 History capsule,extended release 24 hr diazepam 5 mg tablet 5 mg PO Q8 PRN Muscle Spasm #10 01/08/25 06/08/25 Rx tabs sumatriptan succinate 100 mg tablet 100 mg PO DAILY ME N headache 03/09/2505/25 History anastrozole 1 mg tablet 1 mg PO DAILY #90 tabs 06/0806/08/25 Rx Have you fallen in the past year?: No Central Venous Access Central Venous Access: No Laboratory Tests 06/08/25 13:11 BUN 20 H Creatinine 1.44 H Calcium 9.8 Total Bilirubin 0.40 AST 21 ALT 14 Alkaline Phosphatase 64 Albumin 4.4 Exam Physical Exam Narrative ECOG 0-1 Const alert, oriented x3 and no apparent distress General Appearance: comfortable HEENT normocephalic Head and Scalp: normal to inspection Mouth: oral and palatal mucosa normal Eyes General Eye: normal appearance of both eyes Neck no lymphadenopathy, supple and no JVD Lymph Lymphatic: no lymphadenopathy noted Chest Chest: other exam deferred. Resp Auscultation: diminished lung sounds bilateral and diffuse Cardio regular rate and regular rhythm Jugular Venous Distention: Negative for JVD GI soft to palpation, non-tender and non-distended; Negative for hepatosplenomegaly no CVA tenderness Back/Spine no thoracic nor lumbar tenderness Extremity Extremity Narrative: +slight pedal edema. Skin no rashes or lesions noted Neuro oriented x3, CN's II-XII intact bilaterally, moves all extremities and no focal motor deficits Speech: speech normal Gait (Neuro): wide-based Psych mental status grossly normal Coding Level of Care Code Off vis,est,level 4 Exam Problem Focused Diagnoses Invasive ductal carcinoma of right breast C50.911 Osteopenia of multiple sites M85.89 Osteopenia location: multiple sites Assessment and Plan Assessment and Plan (1) Invasive ductal carcinoma of right breast: Status: Chronic (2) Osteopenia: Status: Acute Qualifiers: Osteopenia location: multiple sites Qualified Code(s): M85.89 - Other specified disorders of bone density and structure, multiple sites Orders: Orders CBC W/Diff, Automated 6 Months C50.911 - Malignant neoplasm of unspecified siteof right female breast Comprehensive Metabolic Profil 6 Months C50.911 - Malignant neoplasm of unspecified site of right female breast Medications: Refilled anastrozole 1 mg PO DAILY 90 tabs 3RF C50.911 - Malignant neoplasm of unspecified site of right female breast Plan 70-year-old female with stage I (T1, N 0, M0) invasive ductal cancer of the right breast detected on routine screening mammography. Cancer is ER positive (95%, strong), ME positive (65%, moderate), HER-2 negative. Patient is status post right partial mastectomy with sentinel lymph node biopsy July 04, 2021. She received adjuvant radiation therapy July 2021 and started adjuvant hormonal therapy with Arimidex August 2021. Patient adamantly would not consent to any systemic chemotherapy and therefore Oncotype DX was not requested. When seen April 2022 patient reported new onset headache and increasing back pain. 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 Bone scan April 2022 and lumbar spine MRI August 2022 were consistent with degenerative changes. Chronic comorbid conditions: Active smoker with over 73-tajs-bqft smoking, reactive airways disease, hypertension, dyslipidemia, postmenopausal osteopenia, GERD, history of iron deficiency anemia due to chronic GI blood loss (endoscopies in November 2020 showing gastritis, status post resection of tubular adenomas) and chronic degenerative spine disease. Subcentimeter cutaneous nodule incidentally seen on lumbar spine MRI August 2022 behind the right sacroiliac joint. Follow-up soft tissue ultrasound January and again in April 2023 continues to show two Small calcified adjacent nodules subcentimeter in diameter nonspecific. Plan: #1 Continue systemic adjuvant therapy with an aromatase inhibitor for at least 5years. Rx refilled. #2 Postmenopausal osteopenia, patient has already been on vitamin D calcium supplement. Bone supportive therapy with Prolia every 6 months started August2021- Serum ca WNL. She is not endorsing jaw pain. Will receive Prolia today. #3 cancer screenings: High risk for lung cancer with over 52-nzcw-jhac smoking?low-dose CT chest up-to-date August 2024. Patient is in the precontemplative phase of tobacco cessation. Colon cancer screening: colonoscopy up to date, last completed 03/2024. #4 Annual screening mammography?bilateral screening due July 2025. orders provided. Clinical Quality Measures Falls Risk Screening/Assistive Devices Have you fallen in the past year?: No 06/08/25 1424 <Electronically signed by Anastacia ARITA> Date _ Anastacia ARITA Cosigner Signature: Date (if applicable) CC: ~ [place] Work Phone: [phone] 608-804707-23-2025 [facility] [address] [address] OFFICE VISIT Date of Service: 04/15/25 1334 MR#: [id number] Acct: [id number] Name: MATY HIGH Rep #: [id number] : 1955 From: Anastacia HYLTONC Age/Sex: 70/F Location: [facility] [place] Status: Signed HPI Subjective Date of Service 04/15/25 Chief Complaint Breast cancer on treatment History of Present Illness 70-year-old female who presented after an abnormal screening mammogram. No palpable abnormalities felt by patient or surgery. May 31, 2021 Right breast, core biopsy:Invasive ductal carcinoma with the following characteristics:Nuclear grade ?1/3Maximal length ?10mm ANTIBODY /CLONE [id number] (DO-7) negativeKi-67 (30-9) positiveCK8 (43ytqzC12)positiveCK5-6 (D5 & 1684) negativeCalponin-1 (EX958M) lkbhgtqmI57 (BC28)negativeE-Cad (ECH-6) positiveCOX-2 (SP21) positiveMORPHOMETRIC ANALYSIS ER (clone 6F11) positive, 95% strong intensity ME (clone 16/1E2) positive, 65% moderate intensityHer-2Neu (clone CB11) negative 0 July 04, 2021 right breast partial mastectomy with sentinel lymph node biopsy: MICROSCOPIC DIAGNOSISA. Right breast mass, lumpectomy with wire localization:Invasive ductal carcinoma.See cancer summary in the comment section.B. Right axillary lymph node dissection:Twelve out of twelve lymph nodes, negative for metastatic carcinoma.SJ:charlette 07/07/2021OMMENTBREAST CANCER SUMMARYProcedure ?lumpectomy with needle localization Specimen laterality ?Invasive tumor:Tumor site ?8 o?clock, 4 cm from the nippleTumor size ?1.2 x 1.1 x 1 cmHistologic type?invasive ductal carcinoma (not otherwise specified)Histologic grade (Nottinghamgrade):Glandular/tubular differentiation score -2Nuclear pleomorphism score -2Mitotic count score -1Overall grade ?grade 1(score of 5)Tumor focality ?single focus of invasive carcinomaDuctal carcinoma in situ ?not identifiedLobular carcinoma in situ -not identifiedTumor extension:Skin ?not presentNipple ?not applicableSkeletal muscle ?no skeletal muscle is present.Margins:Invasive carcinoma margin ?the tumor is 0.4 cm away from the closest posteriormargin.Regional lymph nodes:Total number of lymph nodes examined ?12Number of sentinel lymph nodes examined -0Number of lymph nodes with macrometastases, micrometastases or isolated tumor cells -0Treatment effect ?no known presurgicaltherapy.Lymphvascular invasion ?not identifiedDermal lymphvascular invasion ?notapplicableAdditional Pathologic Findings ?intraductal hyperplasia without atypia.Ancillary Studies: Previously performed on same tumor ([id number]/ [id number])ER: positive (>95%, strong intensity)ME: positive (65%, moderate intensity)Dvo0yip: negative (0)Microcalcifications ?not identifiedClinical History -Please make reference to previous specimen ([id number]) right breast, core biopsy with diagnosis of invasive ductal carcinoma.PATHOLOGIC STAGE: [id number] pMx Treatment summary: July 04, 2021 right breast partial mastectomy with sentinel lymph node biopsy. Adjuvant radiation: 08/15/2021 ? 08/26/2021: received 2850 cGy in 5 fractions to the right partial breast Adjuvant hormonal therapy with Arimidex: August 29, 2021- Adjuvant chemotherapy: Declined no Oncotype DX done. Interval History The patient is presenting to clinic accompanied for a planned 3 month follow up. Reports good tolerance and adherence to anastrozole. No change in mild chronic exertional dyspnea. Specifically denies weight loss, headaches, hot flashes, joint pain, dizziness, CP, palpitations, cough, abd pain, swelling of her extremities. Performs breast self exam monthly and denies any changes. Nodule in right groin has disappeared. [facility] Medical History Low iron History of GI bleed Wears hearing aid Wears glasses Cancer Easy bruising History of ulceration Gastric reflux Shortness of breath on exertion Emphysema, unspecified COPD (chronic obstructive pulmonary disease) History of pain when walking History of edema Hyperparathyroidism Encounter for screening for malignant neoplasm of lung Encounter for screening for malignant neoplasm of lung in current smoker with 30pack year history or greater Sciatic leg pain Wears dentures Post-menopausal Depression High cholesterol Back pain Chronic cough Hypertension Iron deficiency anemia due to chronic blood loss Osteopenia Invasive ductal carcinoma of right breast Arthritis GERD (gastroesophageal reflux disease) Smoking greater than 30 pack years Emphysema lung Bronchitis Asthma Surgical History History of esophagogastroduodenoscopy (EGD) H/O parathyroidectomy S/P parathyroidectomy Hx of colonoscopy Hx of fusion of cervical spine Status post right breast lumpectomy S/P lumpectomy, right breast History of tonsillectomy and adenoidectomy Hx of colonoscopy (~2019) H/O tubal ligation Family History Mother Diabetes Hypertension Gastric ulcer Hyperlipidemia CVA (cerebral vascular accident) Father Diabetes COPD (chronic obstructive pulmonary disease) Hypertension Prostate cancer Aunt Breast cancer Social History Smoking Status: Current every day smoker (Patient smoked today.) tobacco type: cigarettes Tobacco: How many years used: 45 how long ago did patient quit smoking: down to only smoking 4 cigarettes/day second hand exposure: Yes quit status: considering quitting alcohol intake: current alcohol intake frequency: holidays/special occasions only substance use type: marijuana caffeine: Yes what type of physical activity do you participate in: none frequency: does not exercise laine/scientology: None seatbelt use: always do you feel safe at home: Yes additional social history: ROS ROS Narrative Negative except as documented in the interval HPI Intake Vital Signs 12/24/24 13:03 04/15/25 13:37 04/15/25 14:12 Height 5 ft 2 in 5 ft 2 in 5 ft 2 in Weight: 134 lb 1 oz BMI 24.5 BP 145/88 H Blood Pressure Location Lt brachial Position Sitting Respiration 18 Pulse 85 Pulse Source Monitor Temp 98.4 F Temperature Source Temporal Artery Pulse Oximetry (%) 96 Oxygen Delivery Method room air Intake Is patient in pain?: No Allergies latex Adverse Reaction (Intermediate, Verified 04/15/25 14:10) rash Penicillins Adverse Reaction (Intermediate, Verified 04/15/25 14:10) Rash Medications ?Medication ?Instructions ?Recorded ?Confirmed ?Type albuterol sulfate 90 mcg/actuation 2 puff inhalation Q 4H PRN 06/23/20 04/15/25 Rx aerosol inhaler shortness of breath or wheez ing #1 device pravastatin 40 mg tablet 40 mg PO QHS 05/14/23 History budesonide 160 mcg-glycopyr 9 2 inh inhalation BID 04/15/25 History mcg-formot 4.8 mcg/actuation HFA inhaler (Breztri Aerosphere) potassium chloride 20 mEq 20 meq PO QDAY 02/07/2403/25 History tablet,extended release amlodipine 5 mg tablet 5 mg PO DAILY 03/19/2404/15 History bupropion HCl (smoking deter) 150 150 mg PO BID 04/15/25 History mg tablet,12 hr sustained-release(smoking deterrent) acetaminophen 500 mg tablet 500 mg PO Q6H PRN PRN Pain Score 05/13/24 04/15/25 R x 1-10 #0 tabs cholecalciferol (vitamin D3) 125 125 mcg PO DAILY #30 caps 05/13/24 04/15/25 Rx mcg (5,000 unit) capsule dicyclomine 10 mg capsule 10 mg PO BID #30 caps 04/15/25 Rx baclofen 10 mg tablet 10 mg PO TID PRN abdominal p ain 12/03/24 04/15/25 History omeprazole 40 mg capsule,delayed 40 mg PO DAILY 04/15/25 History release sucralfate 1 gram tablet 1 g PO TID 12/03/24 04/15/25 History venlafaxine 150 mg 150 mg PO DAILY 12/03/24 History capsule,extended release 24 hr anastrozole 1 mg tablet 1 mg PO DAILY #90 tabs 12/2204/15/25 Rx diazepam 5 mg tablet 5 mg PO Q8 PRN Muscle Spasm #10 01/08/25 04/15/25 Rx tabs sumatriptan succinate 100 mg tablet 100 mg PO DAILY ME N headache 03/09/25 04/15/25 History Have you fallen in the past year?: No Central Venous Access Central Venous Access: No Laboratory Tests 04/15/25 13:16 WBC 6.7 Hgb 13.0 Hct 38.6 Plt Count 209 Absolute Neuts (auto) 4.5 Sodium 140 Potassium 3.9 Chloride 103 Carbon Dioxide 23.6 BUN 15 Creatinine 1.13 Glucose 105 H Calcium 9.5 Iron 62 TIBC 423 Iron Saturation 15.0 Unsaturated IBC 361 Ferritin 30 Total Bilirubin 0.50 AST 23 ALT 11 Alkaline Phosphatase 62 Albumin 4.3 Exam Physical Exam Narrative ECOG 0-1 Const alert, oriented x3 and no apparent distress General Appearance: comfortable HEENT normocephalic Head and Scalp: normal to inspection Mouth: oral and palatal mucosa normal Eyes General Eye: normal appearance of both eyes Neck no lymphadenopathy, supple and no JVD Lymph Lymphatic: no lymphadenopathy noted Resp Auscultation: diminished lung sounds bilateral and diffuse Cardio regular rate and regular rhythm Jugular Venous Distention: Negative for JVD GI soft to palpation, non-tender and non-distended; Negative for hepatosplenomegaly no CVA tenderness Back/Spine no thoracic nor lumbar tenderness Extremity Extremity Narrative: +slight pedal edema. Skin no rashes or lesions noted Neuro oriented x3, CN's II-XII intact bilaterally, moves all extremities and no focal motor deficits Speech: speech normal Gait (Neuro): wide-based Psych mental status grossly normal Coding Level of Care Code Off vis,est,level 4 Exam Problem Focused Diagnoses Invasive ductal carcinoma of right breast C50.911 Osteopenia of multiple sites M85.89 Osteopenia location: multiple sites Assessment and Plan Assessment and Plan (1) Invasive ductal carcinoma of right breast: Status: Chronic (2) Osteopenia: Status: Acute Qualifiers: Osteopenia location: multiple sites Qualified Code(s): M85.89 - Other specified disorders of bone density and structure, multiple sites Orders: Orders 2 SCRN MAMM (CAD)W/MIKE BILAT 08/19/25 Z12.39 - Encounter for other screening formalignant neoplasm of breast CBC W/Diff, Automated 4 Months C50.911 - Malignant neoplasm of unspecified siteof right female breast Comprehensive Metabolic Profil 4 Months C50.911 - Malignant neoplasm of unspecified site of right female breast Plan 70-year-old female with stage I (T1, N 0, M0) invasive ductal cancer of the right breast detected on routine screening mammography. Cancer is ER positive (95%, strong), ME positive (65%, moderate), HER-2 negative. Patient is status post right partial mastectomy with sentinel lymph node biopsy July 04, 2021. She received adjuvant radiation therapy July 2021 and started adjuvant hormonal therapy with Arimidex August 2021. Patient adamantly would not consent to any systemic chemotherapy and therefore Oncotype DX was not requested. When seen April 2022 patient reported new onset headache and increasing back pain. 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 Bone scan April 2022 and lumbar spine MRI August 2022 were consistent with degenerative changes. Chronic comorbid conditions: Active smoker with over 08-tani-sqak smoking, reactive airways disease, hypertension, dyslipidemia, postmenopausal osteopenia,GERD, history of iron deficiency anemia due to chronic GI blood loss (endoscopies in November 2020 showing gastritis, status post resection of tubular adenomas) and chronic degenerative spine disease. Subcentimeter cutaneous nodule incidentally seen on lumbar spine MRI August 2022 behind the rightsacroiliac joint. Follow-up soft tissue ultrasound January and again in April 2023 continues to show two Small calcifiedadjacent nodules subcentimeter in diameter nonspecific. Plan: #1 Continue systemic adjuvant therapy with an aromatase inhibitor for at least 5years. #2 Postmenopausal osteopenia, patient has already been on vitamin D calcium supplement. Bone supportive therapy with Prolia every 6 months started August2021- Serum ca WNL. She is not endorsing jawpain. Due to be given 06/08/25. #3 cancer screenings: High risk for lung cancer with over 29-oesc-gvzw smoking?low-dose CT chest up-to-date July 2024. Patient is in the precontemplative phase of tobacco cessation. Colon cancer screening: colonoscopy up to date, last completed 03/2024. #4 Annual screening mammography?bilateral screening due July 2025. orders provided. Clinical Quality Measures Falls Risk Screening/Assistive Devices Have you fallen in the past year?: No 04/15/25 1440 h [employer]ICA[employer]UDIES PROFESSOR A[employer] STUDIES PROFESSOR-C> Date _ Anastacia Diaz NP [employer] PROFESSOR-C Cosigner Signature: Date (if applicable) CC: Dr. Tani Grey MD ~ [facility]07-23-2025 Progress note Author Anastacia Diaz [facility] Note Date/Time April 15, 2025 2:40 pm [facility] [address] [address] OFFICE VISIT Date of Service: 04/15/25 1334 MR#: [id number] Acct: [id number] Name: ACMATY M Rep #: [id number] : 1955 From: Anastacia Belle AFRICANA STUDIES PROFESSOR A[employer]NA ST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 Status: Signed HPI Subjective Date of Service 04/15/25 Chief Complaint Breast cancer on treatment History of Present Illness 70-year-old female who presented after an abnormal screening mammogram. No palpable abnormalities felt by patient or surgery. May 31, 2021 Right breast, core biopsy:Invasive ductal carcinoma with the following characteristics:Nuclear grade ?1/3Maximal length ?10mm ANTIBODY /CLONE [id number] (DO-7) negativeKi-67 (30-9) positiveCK8 (98qcapZ87)positiveCK5-6 (D5 & 1684) negativeCalponin-1 (MY421J) jonqsnsvO14 (BC28)negativeE-Cad (ECH-6) positiveCOX-2 (SP21) positiveMORPHOMETRIC ANALYSIS ER (clone 6F11) positive, 95% strong intensity ME (clone 16/1E2) positive, 65% moderate intensityHer-2Neu (clone CB11) negative 0 July 04, 2021 right breast partial mastectomy with sentinel lymph node biopsy: MICROSCOPIC DIAGNOSISA. Right breast mass, lumpectomy with wire localization:Invasive ductal carcinoma.See cancer summary in the comment section.B. Right axillary lymph node dissection:Twelve out of twelve lymph nodes, negative for metastatic carcinoma.SJ:charlette 07/07/2021OMMENTBREAST CANCER SUMMARYProcedure ?lumpectomy with needle localization Specimen laterality ?Invasive tumor:Tumor site ?8 o?clock, 4 cm from the nippleTumor size ?1.2 x 1.1 x 1 cmHistologic type?invasive ductal carcinoma (not otherwise specified)Histologic grade (Nottinghamgrade):Glandular/tubular differentiation score -2Nuclear pleomorphism score -2Mitotic count score - 1Overall grade ?grade 1(score of 5)Tumor focality ?single focus of invasive carcinomaDuctal carcinoma in situ ?not identifiedLobular carcinoma in situ -not identifiedTumor extension:Skin ?not presentNipple ?not applicableSkeletal muscle ?no skeletal muscle is present.Margins:Invasive carcinoma margin ?the tumor is 0.4 cm away from the closest posterior margin.Regional lymph nodes:Total number of lymph nodes examined ?12Number of sentinel lymph nodes examined -0Number of lymph nodes with macrometastases, micrometastases or isolated tumor cells -0Treatment effect ?no known presurgicaltherapy.Lymphvascular invasion ?not identifiedDermal lymphvascular invasion ?notapplicableAdditional Pathologic Findings ?intraductal hyperplasia without atypia.Ancillary Studies: Previously performed on same tumor ([id number]/ [id number])ER: positive (>95%, strong intensity)ME: positive (65%, moderate intensity)Svh9wak: negative (0)Microcalcifications ?not identifiedClinical History -Please make reference to previous specimen ([id number]) right breast, core biopsy with diagnosis of invasive ductal carcinoma.PATHOLOGIC STAGE: bT2ixV3 pMx Treatment summary: July 04, 2021 right breast partial mastectomy with sentinel lymph node biopsy. Adjuvant radiation: 08/15/2021 ? 08/26/2021: received 2850 cGy in 5 fractions to the right partial breast Adjuvant hormonal therapy with Arimidex: August 29, 2021- Adjuvant chemotherapy: Declined no Oncotype DX done. Interval History The patient is presenting to clinic accompanied for a planned 3 month follow up. Reports good tolerance and adherence to anastrozole. No change in mild chronic exertional dyspnea. Specifically denies weight loss, headaches, hot flashes, joint pain, dizziness, CP, palpitations, cough, abd pain, swelling of her extremities. Performs breast self exam monthly and denies any changes. Nodule in right groin has disappeared. [facility] Medical History Low iron History of GI bleed Wears hearing aid Wears glasses Cancer Easy bruising History of ulceration Gastric reflux Shortness of breath on exertion Emphysema, unspecified COPD (chronic obstructive pulmonary disease) History of pain when walking History of edema Hyperparathyroidism Encounter for screening for malignant neoplasm of lung Encounter for screening for malignant neoplasm of lung in current smoker with 30pack year history or greater Sciatic leg pain Wears dentures Post-menopausal Depression High cholesterol Back pain Chronic cough Hypertension Iron deficiency anemia due to chronic blood loss Osteopenia Invasive ductal carcinoma of right breast Arthritis GERD (gastroesophageal reflux disease) Smoking greater than 30 pack years Emphysema lung Bronchitis Asthma Surgical History History of esophagogastroduodenoscopy (EGD) H/O parathyroidectomy S/P parathyroidectomy Hx of colonoscopy Hx of fusion of cervical spine Status post right breast lumpectomy S/P lumpectomy, right breast History of tonsillectomy and adenoidectomy Hx of colonoscopy (~2019) H/O tubal ligation Family History Mother Diabetes Hypertension Gastric ulcer Hyperlipidemia CVA (cerebral vascular accident) Father Diabetes COPD (chronic obstructive pulmonary disease) Hypertension Prostate cancer Aunt Breast cancer Social History Smoking Status: Current every day smoker (Patient smoked today.) tobacco type: cigarettes Tobacco: How many years used: 45 how long ago did patient quit smoking: down to only smoking 4 cigarettes/day second hand exposure: Yes quit status: considering quitting alcohol intake: current alcohol intake frequency: holidays/special occasions only substance use type: marijuana caffeine: Yes what type of physical activity do you participate in: none frequency: does not exercise laine/scientology: None seatbelt use: always do you feel safe at home: Yes additional social history: ROS ROS Narrative Negative except as documented in the interval HPI Intake Vital Signs 12/24/24 13:03 04/15/25 13:37 04/15/25 14:12 Height 5 ft 2 in 5 ft 2 in 5 ft 2 in Weight: 134 lb 1 oz BMI 24.5 BP 145/88 H Blood Pressure Location Lt brachial Position Sitting Respiration 18 Pulse 85 Pulse Source Monitor Temp 98.4 F Temperature Source Temporal Artery Pulse Oximetry (%) 96 Oxygen Delivery Method room air Intake Is patient in pain?: No Allergies latex Adverse Reaction (Intermediate, Verified 04/15/25 14:10) rash Penicillins Adverse Reaction (Intermediate, Verified 04/15/25 14:10) Rash Medications ?Medication ?Instructions ?Recorded ?Confirmed ?Type albuterol sulfate 90 mcg/actuation 2 puff inhalation Q 4H PRN 06/23/20 04/15/25 Rx aerosol inhaler shortness of breath or wheez ing #1 device pravastatin 40 mg tablet 40 mg PO QHS 05/14/23 History budesonide 160 mcg-glycopyr 9 2 inh inhalation BID 04/15/25 History mcg-formot 4.8 mcg/actuation HFA inhaler (Breztri Aerosphere) potassium chloride 20 mEq 20 meq PO QDAY 02/07/2403/25 History tablet,extended release amlodipine 5 mg tablet 5 mg PO DAILY 03/19/2404/15 History bupropion HCl (smoking deter) 150 150 mg PO BID 04/15/25 History mg tablet,12 hr sustained-release(smoking deterrent) acetaminophen 500 mg tablet 500 mg PO Q6H PRN PRN Pain Score 05/13/24 04/15/25 R x 1-10 #0 tabs cholecalciferol (vitamin D3) 125 125 mcg PO DAILY #30 caps 05/13/24 04/15/25 Rx mcg (5,000 unit) capsule dicyclomine 10 mg capsule 10 mg PO BID #30 caps 04/15/25 Rx baclofen 10 mg tablet 10 mg PO TID PRN abdominal p ain 12/03/24 04/15/25 History omeprazole 40 mg capsule,delayed 40 mg PO DAILY 04/15/25 History release sucralfate 1 gram tablet 1 g PO TID 12/03/24 04/15/25 History venlafaxine 150 mg 150 mg PO DAILY 12/03/24 History capsule,extended release 24 hr anastrozole 1 mg tablet 1 mg PO DAILY #90 tabs 12/2204/15/25 Rx diazepam 5 mg tablet 5 mg PO Q8 PRN Muscle Spasm #10 01/08/25 04/15/25 Rx tabs sumatriptan succinate 100 mg tablet 100 mg PO DAILY ME N headache 03/09/25 04/15/25 History Have you fallen in the past year?: No Central Venous Access Central Venous Access: No Laboratory Tests 04/15/25 13:16 WBC 6.7 Hgb 13.0 Hct 38.6 Plt Count 209 Absolute Neuts (auto) 4.5 Sodium 140 Potassium 3.9 Chloride 103 Carbon Dioxide 23.6 BUN 15 Creatinine 1.13 Glucose 105 H Calcium 9.5 Iron 62 TIBC 423 Iron Saturation 15.0 Unsaturated IBC 361 Ferritin 30 Total Bilirubin 0.50 AST 23 ALT 11 Alkaline Phosphatase 62 Albumin 4.3 Exam Physical Exam Narrative ECOG 0-1 Const alert, oriented x3 and no apparent distress General Appearance: comfortable HEENT normocephalic Head and Scalp: normal to inspection Mouth: oral and palatal mucosa normal Eyes General Eye: normal appearance of both eyes Neck no lymphadenopathy, supple and no JVD Lymph Lymphatic: no lymphadenopathy noted Resp Auscultation: diminished lung sounds bilateral and diffuse Cardio regular rate and regular rhythm Jugular Venous Distention: Negative for JVD GI soft to palpation, non-tender and non-distended; Negative for hepatosplenomegaly no CVA tenderness Back/Spine no thoracic nor lumbar tenderness Extremity Extremity Narrative: +slight pedal edema. Skin no rashes or lesions noted Neuro oriented x3, CN's II-XII intact bilaterally, moves all extremities and no focal motor deficits Speech: speech normal Gait (Neuro): wide-based Psych mental status grossly normal Coding Level of Care Code Off vis,est,level 4 Exam Problem Focused Diagnoses Invasive ductal carcinoma of right breast C50.911 Osteopenia of multiple sites M85.89 Osteopenia location: multiple sites Assessment and Plan Assessment and Plan (1) Invasive ductal carcinoma of right breast: Status: Chronic (2) Osteopenia: Status: Acute Qualifiers: Osteopenia location: multiple sites Qualified Code(s): M85.89 - Other specified disorders of bone density and structure, multiple sites Orders: Orders 2 SCRN MAMM (CAD)W/MIKE BILAT 08/19/25 Z12.39 - Encounter for other screening formalignant neoplasm of breast CBC W/Diff, Automated 4 Months C50.911 - Malignant neoplasm of unspecified siteof right female breast Comprehensive Metabolic Profil 4 Months C50.911 - Malignant neoplasm of unspecified site of right female breast Plan 70-year-old female with stage I (T1, N 0, M0) invasive ductal cancer of the right breast detected on routine screening mammography. Cancer is ER positive (95%, strong), ME positive (65%, moderate), HER-2 negative. Patient is status post right partial mastectomy with sentinel lymph node biopsy July 04, 2021. She received adjuvant radiation therapy July 2021 and started adjuvant hormonal therapy with Arimidex August 2021. Patient adamantly would not consent to any systemic chemotherapy and therefore Oncotype DX was not requested. When seen April 2022 patient reported new onset headache and increasing back pain. 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 Bone scan April 2022 and lumbar spine MRI August 2022 were consistent with degenerative changes. Chronic comorbid conditions: Active smoker with over 01-cnqu-xqtm smoking, reactive airways disease, hypertension, dyslipidemia, postmenopausal osteopenia,GERD, history of iron deficiency anemia due to chronic GI blood loss (endoscopies in November 2020 showing gastritis, status post resection of tubular adenomas) and chronic degenerative spine disease. Subcentimeter cutaneous nodule incidentally seen on lumbar spine MRI August 2022 behind the right sacroiliac joint. Follow-up soft tissue ultrasound January and again in April 2023 continues to show two Small calcified adjacent nodules subcentimeter in diameter nonspecific. Plan: #1 Continue systemic adjuvant therapy with an aromatase inhibitor for at least 5years. #2 Postmenopausal osteopenia, patient has already been on vitamin D calcium supplement. Bone supportive therapy with Prolia every 6 months started August2021- Serum ca WNL. She is not endorsing jaw pain. Due to be given 06/08/25. #3 cancer screenings: High risk for lung cancer with over 26-cuhj-vzna smoking?low-dose CT chest up-to-date July 2024. Patient is in the precontemplative phase of tobacco cessation. Colon cancer screening: colonoscopy up to date, last completed 03/2024. #4 Annual screening mammography?bilateral screening due July 2025. orders provided. Clinical Quality Measures Falls Risk Screening/Assistive Devices Have you fallen in the past year?: No 04/15/25 1440 <Electronically signed by Anastacia ARITA> Date _ Anastacia ARITA Cosigner Signature: Date (if applicable) CC: Dr. Tani Grey MD ~ [facility] Work Phone: 1(454) 968-192006-18-2025 Evaluation note* Diagnosis Onset Date Resolution Status Admit Date Anemia acute March 11 10:38am History of gastric ulcer acute March 11, 2025 10:38am Iron (Fe) deficiency anemia acute March 11, 2025 10:38am Osteopenia acute April 15 1:12pm 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 April 15, 2025 1:12pm [facility] Work Phone: 1(653) 469-632206-18-2025 Evaluation note* Diagnosis Onset Date Resolution Status Admit Date Anemia acute March 11 10:38am History of gastric ulcer acute March 11, 2025 10:38am Iron (Fe) deficiency anemia acute March 11, 2025 10:38am Osteopenia acute April 15 1:12pm 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 April 15, 2025 1:12pm Osteopenia acute May 1:01pm 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 June 08, 2025 1:01pm [facility] Work Phone: 1(372) 949-356806-18-2025 Consult note [facility] Medical Records Department [address] [place] [address] Anesthesia Postop Eval I 03/11/257 MR#: [id number] Acct: [id number] Name: MATY HIGH Rep #:[id number] : 1955 69 From: Donnell Cuba PCP: Dr. Tani Grey MD Status:REG S DC Y Race: C Location: [place] [address] Anesthesia: Postop Eval I Current Vital Signs Temperature: 97.8 F Pulse Rate: 67 Blood Pressure: 118/60 Respiratory Rate: 16 Pulse Ox: 98 Oxygen Delivery Method: Room Air Assessment Airway patent: Yes Spontaneous unlabored respirations: Yes Mental status: Asleep nausea: No Vomiting: No Anesthesia Complication: No Fluid Hydration Crystalloid volume administer (ml): 300 Total IV fluid infused: 300 Progress Note Anesthesia document: Postop Eval 1 completed: Yes 03/11/251217 > Date _ Donnell Barreto Signature: Date CC: ~ Signed [facility]06-18-2025 Procedure note [facility] Medical Records Department [address] [place] [address] EGD Report MR#: [id number] Acct: [id number] Name: MATY HIGH Rep #:[id number] : 1955 69 From: Bright Wheeler DO PCP: Dr. Tani Grey MD Status:REG S DC Patient Name: Maty High Procedure Date: 03/11/2025 11:45 AM Date of : 1955 Age: 69 Procedure: Upper GI endoscopy Indications: Epigastric abdominal pain, Peptic ulcer Providers: Bright Wheeler DO Referring MD: Tani Grey MD Medicines: Monitored Anesthesia Care Patient Profile: This is a 69 year old female. Refer to note in patient chart for documentation of history and physical. Patient has symptoms of acute epigastric abdominal pain and chronic heartburn. Complications: No immediate complications. Procedure: Pre-Anesthesia Assessment: - Prior to the procedure, a History and Physical was performed, and patient medications and allergies were reviewed. The patient is competent. The risks and benefits of the procedure and the sedation options and risks were discussed with the patient. All questions were answered and informed consent was obtained. Patient identification and proposed procedure were verified by the physician in the pre-procedure area. Mental Status Examination: alert and oriented. Airway Examination: normal oropharyngeal airway and neck mobility. Respiratory Examination: clear to auscultation. CV Examination: normal. Prophylactic Antibiotics: The patient does not require prophylactic antibiotics. Prior Anticoagulants: The patient has taken no anticoagulant or antiplatelet agents except for NSAID medication. ASA Grade Assessment: II - A patient with mild systemic disease. After reviewing the risks and benefits, the patient was deemed in satisfactory condition to undergo the procedure. The anesthesia plan was to use monitored anesthesia care (MAC). Immediately prior to administration of medications, the patient was re-assessed for adequacy to receive sedatives. The heart rate, respiratory rate, oxygen saturations, blood pressure, adequacy of pulmonary ventilation, and response to care were monitored throughout the procedure. The physical status of the patient was re-assessed after the procedure. After obtaining informed consent, the endoscope was passed under direct vision. Throughout the procedure, the patient's blood pressure, pulse, and oxygen saturations were monitored continuously. The gastroscope was introduced through the mouth, and advanced to the third part of the duodenum. Small bowel enteroscopy was deemed necessary. The upper GI endoscopy was accomplished without difficulty. The patient tolerated the procedure well. Scope In: 12:01:15 PM Scope Out: 12:04:30 PM Total Procedure Duration Time 0 hours 3 minutes 15 seconds Findings: No gross lesions were noted in the entire esophagus. Patchy mild inflammation characterized by erythema was found in the gastric antrum. Biopsies were taken with a cold forceps for histology. Verification of patient identification for the specimen was done. Biopsies were taken with a cold forceps for Helicobacter pylori testing. Verification of patient identification for the specimen was done. Estimated blood loss was minimal. Two 5 mm angiodysplastic lesions without bleeding were found in the duodenal bulb and in the second portion of the duodenum. Coagulation for destruction of remaining portion of lesion using heater probe was successful. Estimated blood loss was minimal. Impression: - No gross lesions in the entire esophagus. - Chronic gastritis. Biopsied. - Two non-bleeding angiodysplastic lesions in the duodenum. Treated with a heater probe. Recommendation: - Discharge patient to home. - Resume previous diet. - Continue present medications. Procedure Code(s): --- Professional --- 62576, Small intestinal endoscopy, enteroscopy beyond second portion of duodenum, not including ileum; with biopsy, single or multiple CPT copyright 2021 [employer]. All rights reserved. The codes documented in this report are preliminary and upon inspector assemblies and installations review may be revised to meet current compliance requirements. Bright Wheeler DO 03/11/2025 12:09:57 PM This report has been signed electronically. Number of Addenda: 0 Note Initiated On: 03/11/2025 11:45 AM 03/11/25 1210 Date _ Bright Wheeler DO Cosigner Signature: Date (if indicated) CC: Dr. Tani Grey MD; Bright Wheeler DO ~ Date Dictated: 03/11/25 1145 Date Transcribed: Data Compiler: WADE Signed [facility]06-18-2025 Procedure note [facility] Medical Records Department [address] [place] [address] Operative Report - CC Letter MR#: [id number] Acct: [id number] Name: MATY HIGH Rep #:[id number] : 1955 69 From: Bright Wheeler DO PCP: Dr. Tani Grey MD Status:REG S GUERRERO 03/11/2025 Tani Grey MD [address] [place] [address] Re : Upper GI endoscopy procedure for Maty High Dear Dr. Grey This procedure was performed on Tuesday, March 11, 2025. My impressions and recommendations are as follows: Impressions : - No gross lesions in the entire esophagus. - Chronic gastritis. Biopsied. - Two non-bleeding angiodysplastic lesions in the duodenum. Treated with a heater probe. Recommendations : - Discharge patient to home. - Resume previous diet. - Continue present medications. My findings are described in the full procedure note, which is enclosed. If I can be of further assistance, please feel free to contact me at . Sincerely, Bright Wheeler DO 03/11/2025 12:09:57 PM This report has been signed electronically. 03/11/25 1210 Date _ Bright Wheelre DO Cosigner Signature: Date (if indicated) CC: Dr. Tani Grey MD; Bright Wheeler DO ~ Date Dictated: 03/11/25 1145 Date Transcribed: Data Compiler: RF Signed [facility]06-18-2025 Consult note [facility] Medical Records Department [address] [place] [address] Pre-Anesthesia Evaluation 03/11/25 1146 MR#: [id number] Acct: [id number] Name: MATY HIGH Rep #:[id number] : 1955 69 From: Joshua Ragland MD PCP: Dr. Tani Grey MD Status:REG S DC Y Race: C Location: [place] [address] ASA Classification* ASA Classification ASA Classification: 3 Assessment & Plan Anesthesia* Anesthesia Assessment Anesthesia Assessment: Discussed sedation and/or anesthesia options, risks, benefits, and alternatives with patient/parents/legal guardian/POA. Questions invited. The patient/parents/legal guardian/POA seems to understand and agrees to proceedwith anesthesia plan. Reviewed the physical assessment, medical history, allergy history and patient home medications list prior to surgery/procedure/anesthetic and documented any changes. Performed airway and anesthesia risk assessments. Anesthesia Type Anesthesia Type: MAC History Source History Obtained from:: Patient Anesthesia Focused Assessment* Temperature: 97.7 F Pulse Rate: 75 Blood Pressure: 149/81 Respiratory Rate: 18 Pulse Ox: 98 Oxygen Delivery Method: Room Air Airway Assessment Mouth opens: >3 cm Mallampati Score: III Teeth Condition: Dentures (Patient has full upper and lower dentures. They willbe coming out.) Neck Range of motion (ROM): Limited ROM (Slight decrease in extension) Labs Anesthesia Preop lab: CBC WBC 5.3 K/mm3 (4.4-11.0) 02/09/25 12:07 02/09/25 RBC 4.92 M/mm3 (4.2-5.4) 02/09/25 12:07 02/09/25 Hgb 13.6 g/dL (12.0-15.0) 02/09/25 12:07 02/09/25 Hct 40.9 % (37-47) 02/09/25 12:07 02/09/25 Plt Count 150 K/mm3 (150-450) 02/09/25 12:07 02/09/25 CHEMISTRY Potassium 4.4 mmol/L (3.3-5.1) 02/09/25 12:07 02/09/25 Sodium 141 mmol/L (133-145) 02/09/25 12:07 02/09/25 Magnesium 1.9 mg/dL (1.6-2.6) 05/13/24 05:56 05/13/24 Phosphorus 2.2 mg/dL (2.5-4.9) L 10/23/24 11:08 10/23/24 BUN 16 mg/dL (4-19) 02/09/25 12:07 02/09/25 Creatinine 1.16 mg/dL (0.70-1.20) 02/09/25 12:07 02/09/25 Glucose 91 mg/dL (70-99) 02/09/25 12:07 02/09/25 TSH 5.050 uIU/mL (0.300-4.200) H 02/09/25 12:07 COAG PT 13.4 SECONDS (11.7-14.9) 05/09/24 08:32 Pre-Assessment Diagnosis/Proposed Procedure Planned Operative Procedure(s): EGD Anesthesia History 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 When Was Last Pacemaker Check QUESTION #4 FULL TEXT: You/Your Family Experience fever (hyperthermia) with Anesthesia Last Oral Intake Last Oral intake: Last Oral Intake NPO since 07:00 03/11/25 11:19 Meds taken in AM with sips of Yes 03/11/25 11:19 water? Meds patient instructed to amlodipine 03/11/25 11:19 take am of surgery Any additional information?: Yes Meds taken in AM with sips of water?: Yes PONV PONV - automobile detailer: PONV - automobile detailer Female Yes 03/09/25 13:00 HX of Motion Sickness No 03/09/25 13:00 HX of N/V After Surgery No 03/09/25 13:00 Non-Smoker No 03/09/25 13:00 Duration of Surgery greater No 03/09/25 13:00 than 60 minutes Number of Risk Factors 1 03/09/25 13:00 PONV Score Low Risk 03/09/25 13:00 Height & Weight Height & Weight: Anesthesia: Height & Weight Height 5 ft 2 in 03/11/25 11:19 Weight: 61 kg 03/11/25 11:19 Body Mass Index (BMI) 24.5 03/11/25 11:19 Respiratory Assessment Respiratory Assessment - automobile detailer: Respiratory Tract Infection Hx - automobile detailer Hx Respiratory Tract Infection No 03/09/25 13:00 STOP Sleep Apnea STOP Sleep Apnea - automobile detailer: STOP Sleep Apnea - automobile detailer Hx Hypertension Yes: CONTROLLED WITH MED 03/09/25 13:00 Hx Sleep Apnea No 03/09/25 13:00 CPAP BIPAP Do you snore loudly (louder No 03/09/25 13:00 than talking or can be heard Do you often feel tired/ No 03/09/25 13:00 fatigued/ sleepy during daytime? Has anyone observed you stop No 03/09/25 13:00 breathing during sleep? STOP Results Negative 03/09/25 13:00 QUESTION #5 FULL TEXT : Do you snore loudly (louder than talking or can be heard through closeddoors)? 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 Specify any problems Hx of Preganancy in last 3 No 03/09/25 13:00 Months Nurse Filling Out Transfusion DSCHRIBER 03/09/25 13:00 & Questions: Date: 03/09/25 03/09/25 13:00 Time: 13:01 03/09/25 13:00 Patient unable to answer at this time (ie. confused, unrespo /Reproduction History /Reproductive History - automobile detailer: /Reproductive Hx- automobile detailer Hx Now Gestational Age (in weeks): EDC: Hx Hx Para Hx Section SAB No 03/09/25 13:00 Active Medications Active Medications: Current Medications Generic Name Dose Route Start Last Admin Trade Name Freq PRN Reason Stop Dose Admin Lactated Ringer's 1,000 mls @ 15 mls/hr 03/11/25 11:00 03/11/25 11:22 IV 15 mls/hr .Q48H LUKAS Administration PFSH Medical History Low iron History of GI bleed Wears hearing aid Wears glasses Cancer Easy bruising History of ulceration Gastric reflux Shortness of breath on exertion Emphysema, unspecified COPD (chronic obstructive pulmonary disease) History of pain when walking History of edema Hyperparathyroidism Encounter for screening for malignant neoplasm of lung Encounter for screening for malignant neoplasm of lung in current smoker with 30pack year history or greater Sciatic leg pain Wears dentures Post-menopausal Depression High cholesterol Back pain Chronic cough Hypertension Iron deficiency anemia due to chronic blood loss Osteopenia Invasive ductal carcinoma of right breast Arthritis GERD (gastroesophageal reflux disease) Smoking greater than 30 pack years Emphysema lung Bronchitis Asthma Home Medications ?Medication ?Instructions ?Recorded ?Last Taken ?Type albuterol sulfate 90 mcg/actuation 2 puff inhalation Q 4H PRN 06/23/20 07/04/21 Rx aerosol inhaler shortness of breath or wheez ing #1 device pravastatin 40 mg tablet 40 mg PO QHS 05/14/23 History budesonide 160 mcg-glycopyr 9 2 inh inhalation BID 07/11/24 History mcg-formot 4.8 mcg/actuation HFA inhaler (Breztri Aerosphere) potassium chloride 20 mEq 20 meq PO QDAY 02/07/2406/24 History tablet,extended release amlodipine 5 mg tablet 5 mg PO DAILY 03/19/2403/11 07:00 History bupropion HCl (smoking deter) 150 150 mg PO BID 07/11/24 History mg tablet,12 hr sustained-release(smoking deterrent) acetaminophen 500 mg tablet 500 mg PO Q6H PRN PRN Pain Score 05/13/24 Unknown Rx 1-10 #0 tabs cholecalciferol (vitamin D3) 125 125 mcg PO DAILY #30 caps 05/13/24 07/11/24 Rx mcg (5,000 unit) capsule dicyclomine 10 mg capsule 10 mg PO BID #30 caps Unknown Rx baclofen 10 mg tablet 10 mg PO TID PRN abdominal p ain 12/03/24 12/15/24 History omeprazole 40 mg capsule,delayed 40 mg PO DAILY Unknown History release sucralfate 1 gram tablet 1 g PO TID 12/03/24 Unknown History venlafaxine 150 mg 150 mg PO DAILY 12/03/24 Unk nown History capsule,extended release 24 hr anastrozole 1 mg tablet 1 mg PO DAILY #90 tabs 12/22 Unknown Rx diazepam 5 mg tablet 5 mg PO Q8 PRN Muscle Spasm #10 01/08/25 Unknown Rx tabs sumatriptan succinate 100 mg tablet 100 mg PO DAILY ME N headache 03/09/25 Unknown History Allergy/AdvReac Type Severity Reaction Status Date / Time latex AdvReac Intermediate rash Verified 03/11/25 11:15 Penicillins AdvReac Intermediate Rash Verified 03/11/25 11:15 Family History Mother Diabetes Hypertension Gastric ulcer Hyperlipidemia CVA (cerebral vascular accident) Father Diabetes COPD (chronic obstructive pulmonary disease) Hypertension Prostate cancer Aunt Breast cancer Surgical History History of esophagogastroduodenoscopy (EGD) H/O parathyroidectomy S/P parathyroidectomy Hx of colonoscopy Hx of fusion of cervical spine Status post right breast lumpectomy S/P lumpectomy, right breast History of tonsillectomy and adenoidectomy Hx of colonoscopy (~2019) H/O tubal ligation Social History Smoking Status: Current every day smoker tobacco type: cigarettes Tobacco: How many years used: 45 how long ago did patient quit smoking: down to only smoking 4 cigarettes/day second hand exposure: Yes quit status: considering quitting alcohol intake: current alcohol intake frequency: holidays/special occasions only substance use type: marijuana caffeine: Yes what type of physical activity do you participate in: none frequency: does not exercise laine/scientology: None seatbelt use: always do you feel safe at home: Yes additional social history: Review of Systems (Anesthesia) ROS Narrative System reviewed and no additional complaints, except as documented. Physical Exam Resp clear to auscultation bilaterally 03/11/25 1151 veronica CARTER> Date _ Joshua Ragland MD Cosigner Signature: Date CC: ~ Signed [facility]06-18-2025 History and physical note [facility] Medical Records Department [address] [place] [address] History & Physical Exam 03/11/25 1058 MR#: [id number] Acct: [id number] Name: MATY HIGH Rep #:[id number] : 1955 69 From: [facility] Friend DO PCP: Dr. Tani Grey MD Status:REG S MS Location: [place] [address] HPI - General General Date of Admission: 03/11/25 Date of Service: 03/11/25 Chief Complaint: Anemia HPI Narrative MATY HIGH, is a 69 F who presents with the Chief Complaint: anemia BIG established 9..24 with chronic constipation and abd pain. EGD 7.1.24; one non bleeding gastric ulcer, erythematous tissue in the gastric antrum Colonoscopy 7.24; polyps in the sigmoid and hepatic flexure EGD 07.14.24; - Z-line irregular, 39 cm from the incisors. Biopsied. - Hiatal hernia. - Non-bleeding gastric ulcers with no stigmata of bleeding. Biopsied. - Erythematous duodenopathy. Biopsied. 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 No etiology of abd pain identified. Last OV 11.06.24: continues abd pain. worse with exertion and relieved with rest.Feels like period cramps or labor. Started after hormone blockers for her breastcancer. Constipation is well controlled. Recommended f/u with women care OV 4.8.25 Pt presented to hematology appointment 4.. and was found to be anemic with Hgb at 6.6.SHe underwent transfusion of blood and iron. She is feeling better since then. She continues with iron supplement. [facility] Medical History Low iron History of GI bleed Wears hearing aid Wears glasses Cancer Easy bruising History of ulceration Gastric reflux Shortness of breath on exertion Emphysema, unspecified COPD (chronic obstructive pulmonary disease) History of pain when walking History of edema Hyperparathyroidism Encounter for screening for malignant neoplasm of lung Encounter for screening for malignant neoplasm of lung in current smoker with 30pack year history or greater Sciatic leg pain Wears dentures Post-menopausal Depression High cholesterol Back pain Chronic cough Hypertension Iron deficiency anemia due to chronic blood loss Osteopenia Invasive ductal carcinoma of right breast Arthritis GERD (gastroesophageal reflux disease) Smoking greater than 30 pack years Emphysema lung Bronchitis Asthma Home Medications ?Medication ?Instructions ?Recorded ?Last Taken ?Type albuterol sulfate 90 mcg/actuation 2 puff inhalation Q 4H PRN 06/23/20 07/04/21 Rx aerosol inhaler shortness of breath or wheez ing #1 device pravastatin 40 mg tablet 40 mg PO QHS 05/14/23 History budesonide 160 mcg-glycopyr 9 2 inh inhalation BID 07/11/24 History mcg-formot 4.8 mcg/actuation HFA inhaler (Breztri Aerosphere) potassium chloride 20 mEq 20 meq PO QDAY 02/07/2406/24 History tablet,extended release amlodipine 5 mg tablet 5 mg PO DAILY 03/19/2407/11 History bupropion HCl (smoking deter) 150 150 mg PO BID 07/11/24 History mg tablet,12 hr sustained-release(smoking deterrent) acetaminophen 500 mg tablet 500 mg PO Q6H PRN PRN Pain Score 05/13/24 Unknown Rx 1-10 #0 tabs cholecalciferol (vitamin D3) 125 125 mcg PO DAILY #30 caps 05/13/24 07/11/24 Rx mcg (5,000 unit) capsule dicyclomine 10 mg capsule 10 mg PO BID #30 caps Unknown Rx baclofen 10 mg tablet 10 mg PO TID PRN abdominal p ain 12/03/24 12/15/24 History omeprazole 40 mg capsule,delayed 40 mg PO DAILY Unknown History release sucralfate 1 gram tablet 1 g PO TID 12/03/24 Unknown History venlafaxine 150 mg 150 mg PO DAILY 12/03/24 Unk nown History capsule,extended release 24 hr anastrozole 1 mg tablet 1 mg PO DAILY #90 tabs 12/22 Unknown Rx diazepam 5 mg tablet 5 mg PO Q8 PRN Muscle Spasm #10 01/08/25 Unknown Rx tabs sumatriptan succinate 100 mg tablet 100 mg PO DAILY ME N headache 03/09/25 Unknown History Allergy/AdvReac Type Severity Reaction Status Date / Time latex AdvReac Intermediate rash Verified 03/09/25 12:56 Penicillins AdvReac Intermediate Rash Verified 03/09/25 12:56 Family History Mother Diabetes Hypertension Gastric ulcer Hyperlipidemia CVA (cerebral vascular accident) Father Diabetes COPD (chronic obstructive pulmonary disease) Hypertension Prostate cancer Aunt Breast cancer Surgical History History of esophagogastroduodenoscopy (EGD) H/O parathyroidectomy S/P parathyroidectomy Hx of colonoscopy Hx of fusion of cervical spine Status post right breast lumpectomy S/P lumpectomy, right breast History of tonsillectomy and adenoidectomy Hx of colonoscopy (~2019) H/O tubal ligation Social History Smoking Status: Current every day smoker tobacco type: cigarettes Tobacco: How many years used: 45 how long ago did patient quit smoking: down to only smoking 4 cigarettes/day second hand exposure: Yes quit status: considering quitting alcohol intake: current alcohol intake frequency: holidays/special occasions only substance use type: marijuana caffeine: Yes what type of physical activity do you participate in: none frequency: does not exercise laine/scientology: None seatbelt use: always do you feel safe at home: Yes additional social history: ROS Constitutional Constitutional: Denies fatigue, fever(s), poor appetite, weight gain or weight loss Gastrointestinal Gastrointestinal: Denies belching, bloating, change in bowel habits, change in stool character, chewing difficulty, coffee ground emesis, constipation, cramping, diarrhea, dyspepsia, dysphagia, earlysatiety, excessive flatus, fecalincontinence, heartburn, hematemesis, hematochezia, hemorrhoids, loose stools, melena, nausea, odynophagia, rectal bleeding, tenesmus, vomiting or weight changes Physical Exam Const alert, oriented x3, no apparent distress and healthy appearing General Appearance: cooperative GI normal to inspection, nondistended, normoactive bowel sounds, soft to palpation,non-tender and non-distended Percussion: normal to percussion Rectal Exam: deferred Assessment & Plan Assessment/Plan (1) Anemia: QUALIFIERS: Anemia type: iron deficiency Iron deficiency anemia type: unspecified iron deficiency Qualified Code(s): D50.9 - Iron deficiency anemia, unspecified (2) Iron (Fe) deficiency anemia: QUALIFIERS: Iron deficiency anemia type: unspecified iron deficiency Qualified Code(s): D50.9 - Iron deficiency anemia, unspecified (3) History of gastric ulcer: PLAN: Assessment and Plan Assessment and Plan (1) Anemia: Status: Acute Qualifiers: Anemia type: iron deficiency Iron deficiency anemia type: unspecified iron deficiency Qualified Code(s): D50.9 - Iron deficiency anemia, unspecified Plan: This is a 69 yo female pt here today for f/u regarding her anemia. Pt has been chronically anemic for some time now. 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 She recently was found to have severe anemia at 6.6 and underwent blood transfusion. Her stool was positive for blood. I discussed case withDr. Friend; he does not feel that this degree of anemia would be caused by the single AVM in her small bowel. She will undergo repeat EGD to rule out bleeding ulcer. -EGD -f/u after procedure (2) History of gastric ulcer: Status: Acute 03/11/25 1100 Cosigner Signature (if applicable): CC: Dr. Tani Grey MD; Bright Wheeler DO~ Signed [facility]06-18-2025 [facility] Medical Records Department [address] [place] [address] History Physical Exam 03/11/25 1058 MR#: [id number] Acct: [id number] Name: MATY HIGH Rep #: [id number] : 1955 69 From: Bright Wheeler DO PCP: Dr. Tani Grey MD Status:[facility] Location: [place] [address] HPI - General General Date of Admission: 03/11/25 Date of Service: 03/11/25 Chief Complaint: Anemia HPI Narrative MATY HIGH, is a 69 F who presents with the Chief Complaint: anemia BIG established 06.18.24 with chronic constipation and abd pain. EGD 03.24.24; one non bleeding gastric ulcer, erythematous tissue in the gastric antrum Colonoscopy 03.24.24; polyps in the sigmoid and hepatic flexure EGD 07.14.24; - Z-line irregular, 39 cm from the incisors. Biopsied. - Hiatal hernia. - Non-bleeding gastric ulcers with no stigmata of bleeding. Biopsied. - Erythematous duodenopathy. Biopsied. 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 No etiology of abd pain identified. Last OV 11.06.24: continues abd pain. worse with exertion and relieved with rest. Feels like period cramps or labor. Started after hormone blockers for her breast cancer. Constipation is well controlled. Recommended f/u with women care OV 4.05.18 Pt presented to hematology appointment .11.18 and was found to be anemic with Hgb at 6.6. SHe underwent transfusion of blood and iron. She is feeling better since then. She continues with iron supplement. [facility] Medical History Low iron History of GI bleed Wears hearing aid Wears glasses Cancer Easy bruising History of ulceration Gastric reflux Shortness of breath on exertion Emphysema, unspecified COPD (chronic obstructive pulmonary disease) History of pain when walking History of edema Hyperparathyroidism Encounter for screening for malignant neoplasm of lung Encounter for screening for malignant neoplasm of lung in current smoker with 30 pack year history or greater Sciatic leg pain Wears dentures Post-menopausal Depression High cholesterol Back pain Chronic cough Hypertension Iron deficiency anemia due to chronic blood loss Osteopenia Invasive ductal carcinoma of right breast Arthritis GERD (gastroesophageal reflux disease) Smoking greater than 30 pack years Emphysema lung Bronchitis Asthma Home Medications ???Medication ???Instructions ???Recorded ???Last Taken ???Type albuterol sulfate 90 mcg/actuation 2 puff inhalation Q4H PRN 07/04/21 Rx aerosol inhaler shortness of breath or wheezing #1 device pravastatin 40 mg tablet 40 mg PO QHS 05/14/23 07/11/24 His tory budesonide 160 mcg-glycopyr 9 2 inh inhalation BID 12/06/2306/24 History mcg-formot 4.8 mcg/actuation HFA inhaler (Breztri Aerosphere) potassium chloride 20 mEq 20 meq PO QDAY 02/07/24 07/11/24 H istory tablet,extended release amlodipine 5 mg tablet 5 mg PO DAILY 03/19/24 07/11/24 Hi story bupropion HCl (smoking deter) 150 150 mg PO BID 04/29/24 07/11/24 H istory mg tablet,12 hr sustained-release(smoking deterrent) acetaminophen 500 mg tablet 500 mg PO Q6H PRN PRN Pain Score 0 05/13/24 Unknown Rx 1-10 #0 tabs cholecalciferol (vitamin D3) 125 125 mcg PO DAILY #30 caps 05/13/24 07/11/24 Rx mcg (5,000 unit) capsule dicyclomine 10 mg capsule 10 mg PO BID #30 caps 08/29/24 Unk nown Rx baclofen 10 mg tablet 10 mg PO TID PRN abdominal pain 12/15/24 History omeprazole 40 mg capsule,delayed 40 mg PO DAILY 12/03/24 Unknown Hi story release sucralfate 1 gram tablet 1 g PO TID 12/03/24 Unknown Histor y venlafaxine 150 mg 150 mg PO DAILY 12/03/24 Unknown H istory capsule,extended release 24 hr anastrozole 1 mg tablet 1 mg PO DAILY #90 tabs 12/22/24 Un known Rx diazepam 5 mg tablet 5 mg PO Q8 PRN Muscle Spasm #10 Unknown Rx tabs sumatriptan succinate 100 mg tablet 100 mg PO DAILY PRN headache Unknown History Allergy/AdvReac Type Severity Reaction Status Date / Time latex AdvReac Intermediate rash Verified 03/09/25 12:56 Penicillins AdvReac Intermediate Rash Verified 03/09/25 12:56 Family History Mother Diabetes Hypertension Gastric ulcer Hyperlipidemia CVA (cerebral vascular accident) Father Diabetes COPD (chronic obstructive pulmonary disease) Hypertension Prostate cancer Aunt Breast cancer Surgical History History of esophagogastroduodenoscopy (EGD) H/O parathyroidectomy S/P parathyroidectomy Hx of colonoscopy Hx of fusion of cervical spine Status post right breast lumpectom (more content not included)...[facility]04-02-2025 Radiology Diagnostic study note [facility] Imaging Services [address] [place] [id number] Ext Non Vasc Limited/Soft Tiss MR#: [id number] Acct: [id number] Name: MATY HIGH Rep #: [id number] : 1955 F 69 From: Ramakrishna Love MD PCP: Dr. Tani Grey MD Status: REG Norman PALACIOS Study:Ext Non Vasc Limited/Soft Tiss Date of Exam: 12/23/24 Exam# [id number] Ordering Dr: Anastacia Childers NP [employer] PROFESS[employer]-C PROCEDURE: EXT NON VASC LIMITED/SOFT TISS 12/23/2024 REASON FOR EXAM: RIGHT GROIN; MASS TECHNIQUE: Ultrasound targeted to the palpable abnormality at the right groin.. COMPARISON: None FINDINGS: The area of the palpable mass in the right groin was examined with ultrasound. No sonographic abnormality is seen. US/Ext Non Vasc Limited/Soft Tiss IMPRESSION: No sonographic abnormality is seen. Reading Location: [facility] CC: AFRICANA STUDIES PROFESSORIveth Diaz; Dr. Tani Grey MD ~ Data Compiler: Signed [facility] [id number] Evaluation note* Diagnosis Onset Date Resolution Status Admit Date Iron (Fe) deficiency anemia acute December 22, 2024 9:46am Osteopenia acute December 22 9:46am Right groin mass acute December 222024 9:46am 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 December 22, 2024 9:46am Anemia acute December 24 12:21pm Iron (Fe) deficiency anemia acute December 24, 2024 12:21pm Osteopenia acute December 24 12:21pm Right groin mass acute December 12:21pm 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 December 24, 2024 12:21pm Anemia acute December 30 10:24am History of gastric ulcer acute December 30, 2024 10:24am Anemia acute March 11 10:38am History of gastric ulcer acute March 11, 2025 10:38am Iron (Fe) deficiency anemia acute March 11, 2025 10:38am Osteopenia acute April 15 1:12pm 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 April 15, 2025 1:12pm [facility] Work Phone: 1(843) 960-411203-12-2025 Evaluation note* Diagnosis Onset Date Resolution Status Admit Date Anemia acute December 03 2:08pm Iron (Fe) deficiency anemia acute December 03, 2024 2:08pm Osteopenia acute December 03 2:08pm Iron (Fe) deficiency anemia acute December 22, 2024 9:46am Osteopenia acute December 22 9:46am Right groin mass acute December 222024 9:46am 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 December 22, 2024 9:46am Anemia acute December 24 12:21pm Iron (Fe) deficiency anemia acute December 24, 2024 12:21pm Osteopenia acute December 24 12:21pm Right groin mass acute December 12:21pm 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 December 24, 2024 12:21pm Anemia acute December 30 10:24am History of gastric ulcer acute December 30, 2024 10:24am Anemia acute March 11 10:38am History of gastric ulcer acute March 11, 2025 10:38am Iron (Fe) deficiency anemia acute March 11, 2025 10:38am [facility] Work Phone: 1(538) 974-991002-13-2025 Evaluation note* Diagnosis Onset Date Resolution Status Admit Date Abdominal pain acute October 252024 10:24am Pelvic pain acute October 10:24am Chronic constipation chronic Febr 2024 10:24am Anemia acute December 03 2:08pm Iron (Fe) deficiency anemia acute December 03, 2024 2:08pm Osteopenia acute December 03 2:08pm Iron (Fe) deficiency anemia acute December 22, 2024 9:46am Osteopenia acute December 22 9:46am Right groin mass acute December 222024 9:46am 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 December 22, 2024 9:46am Anemia acute December 24 12:21pm Iron (Fe) deficiency anemia acute December 24, 2024 12:21pm Osteopenia acute December 24 12:21pm Right groin mass acute December 12:21pm 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 December 24, 2024 12:21pm Anemia acute December 30 10:24am History of gastric ulcer acute December 30, 2024 10:24am [facility] Work Phone: 1(265) 524-328712-10-2024 Evaluation note* Diagnosis Onset Date Resolution Status Admit Date 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 September 02, 2:51pm Abdominal pain acute October 252024 10:24am Pelvic pain acute October 10:24am Chronic constipation chronic Febr 2024 10:24am Anemia acute December 03 2:08pm Iron (Fe) deficiency anemia acute December 03, 2024 2:08pm Osteopenia acute December 03 2:08pm Iron (Fe) deficiency anemia acute December 22, 2024 9:46am Osteopenia acute December 22 9:46am Right groin mass acute December 222024 9:46am 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 December 22, 2024 9:46am Anemia acute Jessica 2nd, 202 5 12:21pm Iron (Fe) deficiency anemia acute December 24, 2024 12:21pm Osteopenia acute December 24 12:21pm Right groin mass acute December 12:21pm 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 December 24, 2024 12:21pm [facility] Work Phone: 1([phone]) 935-985112-03-2024 Evaluation note* Diagnosis Onset Date Resolution Status Admit Date Encounter for screening for malignant neoplasm of lung in current smoker wi acute August 26, 2024 1:54pm Tobacco use disorder, continuous acute August 26 1:54pm Abdominal pain acute August 292023 2:47pm Anemia acute August 29, 2024 2:47pm Pelvic pain acute August 29, 2024 2:47pm 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 September 02 2:51pm Abdominal pain acute October 252024 10:24am Pelvic pain acute October 10:24am Chronic constipation chronic Febr uary 2024 10:24am Anemia acute December 03 2:08pm Iron (Fe) deficiency anemia acute December 03, 2024 2:08pm Osteopenia acute December 03 2:08pm [facility] Work Phone: 1(613) 487-793110-04-2024 NoteHNO ID: [id number] Author: KIANNA TOBAR APRN.AIRPLANE AND ENGINE INSPECTOR Service: ? Author Type: Nurse Practitioner Type: Progress Notes Filed: 06/27/2024 15:05 Note Text: Patient declined plumber's assistant. Maty High is a 69 year old female who presents for problem visit pelvic pain for 1 year(s). HPI: Maty has been having pelvic pain across her lower abdomen for about 1 year. It worsens with physical activity. She has to lay down for relief. Rates it as an 8-9/10 at its worse. No bleeding or discharge. History of breast cancer. 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 OB History No obstetric history on file. 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 Comments: Sexual Activity: Not Asked; No partner data on record Contraception: No contraception data on record PAST MEDICAL HISTORY Diagnosis Date - Arthritis - Asthma - COPD (chronic obstructive pulmonary disease) (HCC) - HTN (hypertension) - Hypercholesteremia PAST SURGICAL HISTORY Procedure Laterality Date - ANTERIOR INTERBODY FUSION, CERVICAL 2002 - COLONOSCOP W/ OR W/O [facility] SPEC 10/15/2013 Colonoscopy - COLONOSCOPY AND POLYPECTOMY - S TUBAL LIGATION late - TONSILLECTOMY HX FAMILY HISTORY Problem Relation Age of Onset - Diabetes Mother - Diabetes Father - Hypertension Mother - Stroke Mother - Diabetes Brother - Emphysema Father Social History Tobacco Use - Smoking status: Every Day Types: Cigarettes - Smokeless tobacco: Never - Tobacco comments: Pt down to 1or 2 cigarettes a day Substance Use Topics - Alcohol use: Yes Comment: occasional wine - Drug use: No Current Outpatient Medications Medication Sig - citalopram hydrobromide (CELEXA) 10 mg tablet Take 10 mg by mouth once daily. - atorvastatin (LIPITOR) 20 mg tablet Take 20 mg by mouth once daily. - Cholecalciferol, Vitamin D3, (VITAMIN D) 25 mcg (1,000 unit) cap Take 1,000 Units by mouth once daily. - tiotropium Br/olodaterol HCl (STIOLTO RESPIMAT INHALATION) Inhale 2.5 mcg as instructed. - pantoprazole DR (PROTONIX) 40 mg tablet Take 40 mg by mouth once daily. - polyethylene glycol 3350 (PURELAX ORAL) Take by mouth once daily. One capful daily - BENEFIBER, GUAR GUM, ORAL Take by mouth once daily. - celecoxib (CELEBREX) 200 mg capsule Take 200 mg by mouth once daily. (Patient not taking: Reported on 01/26/2021 ) - fenofibrate nanocrystallized (TRICOR) 145 mg tablet Take 145 mg by mouth once daily. (Patient not taking: Reported on 01/26/2021 ) - fluticasone-salmeterol (ADVAIR DISKUS) 250-50 mcg/dose DsDv Inhale 1 Puff as instructed every 12 hours. (Patient not taking: Reported on 01/26/2021 ) - venlafaxine XR (EFFEXOR XR) 37.5 mg 24 hr capsule Take 37.5 mg by mouth once daily. - albuterol HFA (PROVENTIL HFA) 90 mcg/actuation inhaler Inhale 2 Puffs as instructed every 4 hours as needed for Wheezing/Shortness of Breath. - lisinopril 10 mg tablet Take 20 mg by mouth once daily. - hydrochlorothiazide 25 mg tablet Take 25 mg by mouth once daily. (Patient not taking: Reported on 01/26/2021 ) - pravastatin 20 mg tablet Take 20 mg by mouth once daily. (Patient not taking: Reported on 01/26/2021 ) - meloxicam 7.5 mg tablet Take 7.5 mg by mouth once daily. (Patient not taking: Reported on 01/26/2021 ) No current facility-administered medications for this visit. 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 As applicable, any other physician, advance practice provider, medical student, or other health professional student that will be observing or involved in the sensitive examination for educational or training purposes was discussed with the Patient or Authorized Buckle Stapler. The Patient or Authorized Buckle Stapler has agreed to proceed with the sensitive examination. (Sensitive examination includes inspection and/or palpation of the breasts, pelvis, prostate and anorectal regions). EXAM: BP 144/78 Wt 136 lb 9.6 oz (62.0kg) GENERAL: pleasant, female in no apparent distress HEENT: Normocephalic, atraumatic, mucus membranes moist, and no lesions CHEST: Normal inspiratory effort ABDOMEN: soft, non-tender, and no masses PELVIC: external genitalia atrophic, normal Bartholin's glands, urethra, Fruita's glands, no vulvar lesions, no cervical lesions, good vaginal support, physiologic discharge present, normal appearing perineal body and perianal region BIMANUAL: uterus normal size, shape and consistency and no adnexal masses + mild tenderness noted with palpatio (more content not included)...[facility]10-04-2024 History of Present illness Narrative* Kianna Tobar APRN.AIRPLANE AND ENGINE INSPECTOR - 06/27/2024 2:30 PM EDT Patient declined plumber's assistant. Maty High is a 69 year old female who presents for problem visit pelvic pain for 1 year(s). HPI: Maty has been having pelvic pain across her lower abdomen for about 1 year. It worsens with physical activity. She has to lay down for relief. Rates it as an 8-9/10 at its worse. No bleeding or discharge. History of breast cancer. 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 OB History No obstetric history on file. 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 Comments: Sexual Activity: Not Asked; No partner data on record Contraception: No contraception data on record PAST MEDICAL HISTORY Diagnosis Date Arthritis Asthma COPD (chronic obstructive pulmonary disease) (HCC) HTN (hypertension) Hypercholesteremia PAST SURGICAL HISTORY Procedure Laterality Date ANTERIOR INTERBODY FUSION, CERVICAL 2003 COLONOSCOP W/ OR W/O [facility] SPEC 10/15/2013 Colonoscopy COLONOSCOPY & POLYPECTOMY TUBAL LIGATION late ' TONSILLECTOMY HX FAMILY HISTORY Problem Relation Age of Onset Diabetes Mother Diabetes Father Hypertension Mother Stroke Mother Diabetes Brother Emphysema Father Social History Tobacco Use Smoking status: Every Day Types: Cigarettes Smokeless tobacco: Never Tobacco comments: Pt down to 1or 2 cigarettes a day Substance Use Topics Alcohol use: Yes Comment: occasional wine Drug use: No Current Outpatient Medications Medication Sig citalopram hydrobromide (CELEXA) 10 mg tablet Take 10 mg by mouth once daily. atorvastatin (LIPITOR) 20 mg tablet Take 20 mg by mouth once daily. Cholecalciferol, Vitamin D3, (VITAMIN D) 25 mcg (1,000 unit) cap Take 1,000 Units by mouth once daily. tiotropium Br/olodaterol HCl (STIOLTO RESPIMAT INHALATION) Inhale 2.5 mcg as instructed. pantoprazole DR (PROTONIX) 40 mg tablet Take 40 mg by mouth once daily. polyethylene glycol 3350 (PURELAX ORAL) Take by mouth once daily. One capful daily BENEFIBER, GUAR GUM, ORAL Take by mouth once daily. celecoxib (CELEBREX) 200 mg capsule Take 200 mg by mouth once daily. (Patient not taking: Reported on 01/26/2021 ) fenofibrate nanocrystallized (TRICOR) 145 mg tablet Take 145 mg by mouth once daily. (Patient not taking: Reported on 01/26/2021 ) fluticasone-salmeterol (ADVAIR DISKUS) 250-50 mcg/dose DsDv Inhale 1 Puff as instructed every 12 hours. (Patient not taking: Reported on 01/26/2021 ) venlafaxine XR (EFFEXOR XR) 37.5 mg 24 hr capsule Take 37.5 mg by mouth once daily. albuterol HFA (PROVENTIL HFA) 90 mcg/actuation inhaler Inhale 2 Puffs as instructed every 4 hours as needed for Wheezing/Shortness of Breath. lisinopril 10 mg tablet Take 20 mg by mouth once daily. hydrochlorothiazide 25 mg tablet Take 25 mg by mouth once daily. (Patient not taking: Reported on 01/26/2021 ) pravastatin 20 mg tablet Take 20 mg by mouth once daily. (Patient not taking: Reported on 01/26/2021 ) meloxicam 7.5 mg tablet Take 7.5 mg by mouth once daily. (Patient not taking: Reported on 01/26/2021 ) No current facility-administered medications for this visit. 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 As applicable, any other physician, advance practice provider, medical student, or other health professional student that will be observing or involved in the sensitive examination for educational or training purposes was discussed with the Patient or Authorized Buckle Stapler. The Patient or Authorized Buckle Stapler has agreed to proceed with the sensitive examination. (Sensitive examination includes inspection and/or palpation of the breasts, pelvis, prostate and anorectal regions). EXAM: BP 144/78 Wt 136 lb 9.6 oz (62.0kg) GENERAL: pleasant, female in no apparent distress HEENT: Normocephalic, atraumatic, mucus membranes moist, and no lesions CHEST: Normal inspiratory effort ABDOMEN: soft, non-tender, and no masses PELVIC: external genitalia atrophic, normal Bartholin's glands, urethra, Fruita's glands, no vulvar lesions, no cervical lesions, good vaginal support, physiologic discharge present, normal appearing perineal body and perianal region BIMANUAL: uterus normal size, shape and consistency and no adnexal masses + mild tenderness noted with palpation to mid uterus NEURO: alert and oriented x3,exam grossly non-focal EXTREMITIES: normal ASSESSMENT AND PLAN: 1. Pelvic pain in female - ICD9: 625.9, ICD10: R10.2 (primary diagnosis) - Cultures obtained - Ultrasound ordered - Pap done - ER precautions reviewed Will guide management based on results. Consider chronic pelvic pain consult if all findings negative. Kianna Tobar APRN.CNP Medical Decision Making: Problems: Moderate: New problem with uncertain prognosis Data: Unique test(s) ordered: 3+ Risk: Low: Low risk from testing/treatment Medical Decision Making Level: 4 - Moderate documented [facility] Discharge summary Author Isauro Kebede [facility] January 27, 2024 12:10pm Note Date/Time January 27, 2024 8:38am [facility] Medical Records Department [address] [place] [address] Emergency Department Summary 01/27/24 MR#: [id number] Acct: [id number] Name: MATY HIGH Rep #:[id number] : 1955 68 From: Isauro Kebede DO PCP: Dr. Tani Grey MD Status:REG E R Location: ED HPI History of Present Illness Chief Complaint: Bite Narrative Narrative: 68-year-old female presenting with wound to the left forearm. She states she was bitten by a cat a week ago today. It was her own cat's if she states it hashad all its shots. She was seen yesterday and reports she was given IV antibiotics and a line was drawn around the wound and she went home but did not get her prescription medications filled because the pharmacy was closed and she came back today due to worsening pain, feeling unwell, spreading of redness on the left forearm. She has not had a fever. She is not vomiting ROS ROS ED Constitutional Constitutional ED: Denies chills, fever(s) or sweats Eyes Eyes: Denies blurry vision or change in vision ENT ENT ED: Denies ear pain or sore throat Cardiovascular Cardiovascular: Denies chest pain, palpitations or racing heartbeat Respiratory/Chest Respiratory/Chest: Denies cough, dyspnea or sputum Gastrointestinal Gastrointestinal: Denies abdominal pain, constipation, diarrhea, nausea or vomiting Genitourinary Genitourinary ED: Denies dysuria, hematuria or urinary frequency Musculoskeletal Musculoskeletal: Reports other Details: Left forearm pain ; Denies arthralgias, myalgias or neck pain Integumentary Reports rash; Denies abscess or Abrasions Neurologic Neurologic: Reports headache(s); Denies paresthesias or weakness Psychiatric Psychiatric: Denies anxiety, depression, suicidal ideation or suicidal thoughts Endocrine Endocrinology: Denies polydipsia or polyuria [facility] Medical History (Updated 01/26/24 @ 12:[address] Marcella Griffin MD) Abnormal ultrasound of breast Anemia Ankle sprain Arthritis Asthma Back pain Breast cancer Breast pain, right Bronchitis Chronic constipation Chronic cough Degenerative joint disease Depression Disc degeneration Emphysema lung Encounter for screening for malignant neoplasm of lung Encounter for screening for malignant neoplasm of lung in current smoker with 30pack year history or greater Foot fracture GERD (gastroesophageal reflux disease) Hemorrhoids High cholesterol Hoarseness Hypertension Hypertension Invasive ductal carcinoma of right breast Iron deficiency anemia due to chronic blood loss Osteopenia Post-menopausal Sciatic leg pain Shortness of breath on exertion Smoking greater than 30 pack years SOB (shortness of breath) Tobacco use disorder, continuous Unspecified chronic bronchitis Wears dentures Home Medications atorvastatin 20 mg tablet (Lipitor) 20 mg PO QHS 06/08/20 [History Last Taken 07/03/21] albuterol sulfate 90 mcg/actuation aerosol inhaler 2 puff inhalation Q4H PRN shortness of breath or wheezing #1 device 06/23/20 [Rx Last Taken 07/04/21] amlodipine 2.5 mg tablet 5 mg PO DAILY 06/20/21 [History Last Taken 07/04/21] anastrozole 1 mg tablet 1 mg PO DAILY #90 tabs 04/02/23 [Rx Last Taken Unknown] pravastatin 40 mg tablet 40 mg PO DAILY 05/14/23 [History Last Taken Unknown] budesonide 160 mcg-glycopyr 9 mcg-formot 4.8 mcg/actuation HFA inhaler (Breztri Aerosphere) 2 inh inhalation BID 12/06/23 [History Last Taken Unknown] calcium acetate 667 mg tablet 667 mg PO ONCE 12/06/23 [History Last Taken Unknown] cholecalciferol (vitamin D3) 125 mcg (5,000 unit) capsule 125 mcg PO DAILY 12/06/23 [History Last Taken Unknown] magnesium 250 mg tablet 250 mg PO DAILY 12/06/23 [History Last Taken Unknown] mecobalamin (vitamin B12) 2,500 mcg chewable tablet mcg PO 12/06/23 [History Last Taken Unknown] zinc gluconate 50 mg tablet 50 mg PO DAILY 12/06/23 [History Last Taken Unknown] doxycycline monohydrate 100 mg capsule 100 mg PO BID #20 CAPSULES 01/26/24 [Rx Last Taken Unknown] clindamycin HCl 300 mg capsule 300 mg PO Q8H 10 days #30 caps 01/27/24 [Rx Last Taken Unknown] Allergy/AdvReac Type Severity Reaction Status Date / Time latex AdvReac Intermediate rash Verified 01/27/24 08:06 Penicillins AdvReac Intermediate Rash Verified 01/27/24 08:06 Family History Mother Diabetes Hypertension Gastric ulcer Hyperlipidemia CVA (cerebral vascular accident) Father Diabetes COPD (chronic obstructive pulmonary disease) Hypertension Prostate cancer Aunt Breast cancer Surgical History H/O tubal ligation History of neck surgery History of tonsillectomy and adenoidectomy Hx of colonoscopy (~2019) Status post right breast lumpectomy Social History Smoking Status: Current every day smoker tobacco type: cigarettes Tobacco: How many years used: 45 how long ago did patient quit smoking: down to only smoking 4 cigarettes/day second hand exposure: Yes alcohol intake: current alcohol intake frequency: holidays/special occasions only substance use type: marijuana caffeine: Yes what type of physical activity do you participate in: none frequency: does not exercise laine/scientology: None seatbelt use: always do you feel safe at home: Yes EXAM Physical Exam Const Vital Signs: 01/27/24 08:07 01/27/24 09:10 01/27/24 10:00 Temperature 97.5 F L 98.0 F 97.5 F L Temperature Source Temporal Temporal Temporal Pulse Rate 99 73 79 Respiratory Rate 18 17 17 Blood Pressure 162/137 H 165/69 H 181/76 H Blood Pressure Mean 145 101 111 Pulse Ox 96 98 97 Oxygen Delivery Method Room Air Room Air Room Air 01/27/24 11:00 Temperature 98.2 F Temperature Source Temporal Pulse Rate 88 Respiratory Rate 17 Blood Pressure 183/68 H Blood Pressure Mean 106 Pulse Ox 98 Oxygen Delivery Method Room Air Positive well nourished General Appearance ED: NAD HEDARIO Reports moist mucous membranes normocephalic Eyes PERRL and EOMs intact bilaterally Resp normal respiratory effort Cardio regular rate and regular rhythm Neuro oriented x3 Sensorium / Orientation: alert Skin Skin Narrative: Left forearm: 7 x 9 cm measured area with drawn border with surrounding erythemaoutside of the margins on the dorsal surface. There is tenderness and warmth over this area as well as the outside of the margins. This has appeared to spread both laterally, distally approximately since yesterday. Neurovascular intact. Prescribed refill all 5 fingers. MDM MDM MDM Narrative Medical decision making narrative: Patient presenting with cat bite to the left forearm which is peers to getting worse since yesterday. Will obtain blood work including CBC to assess white blood cell count, hemoglobin, platelets. BMP to assess renal function electrolytes. Will obtain x-ray of the left forearm as well. CBC shows normal white blood cell count 8.1. Hemoglobin 10.7 and within normal limits for her. Renal function electrolytes are normal. X-ray concerning for possible gas or recent instrumentation as patient had IV in her arm yesterday and she cannot have an IV in her right arm due to dissection of lymph nodes. This is a possible source for air. Discussed with orthopedics (Dr. Whitehead) and we determined we will get a CT scan of the upper extremity and it does appear to bethere is some gas but is also related most likely to the IV as the wound is on the dorsal surface and the gas volar but the IV was placed. He came in to evaluate her and she does not have significant pain or crepitus and he recommended discharging home on Cipro and clindamycin. She was given the first doses in the ER earlier. Return precautions were discussed with her. She is can follow-up with him in later this week. Impression: 1. Cat bite left forearm Lab Data Attestation: I reviewed the patient's lab results. Labs: Laboratory Results - last 24 hr 01/27/24 09:14 WBC 8.1 RBC 4.36 Hgb 10.7 L Hct 33.9 L MCV 77.8 L MCH 24.5 L MCHC 31.6 L RDW Std Deviation 42.5 RDW Coeff of Marisol 15.1 H Plt Count 176 MPV 10.5 Immature Gran % (Auto) 0.200 Neut % (Auto) 81.1 H Lymph % (Auto) 10.4 L Kendall % (Auto) 8.0 Eos % (Auto) 0.1 Baso % (Auto) 0.2 Absolute Neuts (auto) 6.6 Absolute Lymphs (auto) 0.84 Nucleated RBC % 0 Sodium 136 Potassium 3.5 Chloride 106 Carbon Dioxide 23.0 Anion Gap 7 BUN 16 Creatinine 0.98 Estim Creat Clear Calc 47.77 Est GFR (MDRD) Af Amer 72 Est GFR (MDRD) Non-Af 60 BUN/Creatinine Ratio 16.3 Glucose 111 H Calcium 9.2 Radiography Diagnostic Testing: Clinical Impression(s) from Imaging Studies Forearm X-Ray 01/27/24 08:42 IMPRESSION: Soft tissue swelling. Indeterminant radiolucencies projecting over the soft tissues within the proximal ventral forearm, may be secondary to recent instrumentation or trauma, cannot exclude a gas producing organism. Electronically Signed: Kristel Myers MD at 9:52 EDT , Upper Extremity CT 01/27/24 10:11 IMPRESSION: Cellulitis of the left forearm without abscess or osteomyelitis. Mild air in the soft tissues of the antecubital fossa extending to the proximal forearm, which may be related to recent instrumentation, penetrating trauma, or infection. Electronically Signed: Dinah Harvey MD at 11:31 EDT , Discharge Plan Triage Chief Complaint: Bite ED Provider: Isauro Kebede Dx/Rx/DC Orders Instructions: ED Cat Bite Prescriptions: New clindamycin HCl 300 mg capsule 300 mg PO Q8H 10 Days Qty: 30 0RF No Action atorvastatin [Lipitor] 20 mg tablet 20 mg PO QHS albuterol sulfate 90 mcg/actuation HFA aerosol inhaler 2 puff INHALATION Q4H PRN (Reason: shortness of breath or wheezing) Qty: 1 6RF Rx Instructions: administer with spacer amlodipine 2.5 mg tablet 5 mg PO DAILY pravastatin 40 mg tablet 40 mg PO DAILY Patient Comments: TAKE 1 TABLET BY MOUTH EVERY DAY AT BEDTIME zinc gluconate 50 mg tablet 50 mg PO DAILY magnesium 250 mg tablet 250 mg PO DAILY cholecalciferol (vitamin D3) 125 mcg (5,000 unit) capsule 125 mcg PO DAILY calcium acetate 667 mg tablet 667 mg PO ONCE Breztri Aerosphere 160-9-4.8 mcg/actuation HFA aerosol inhaler 2 inh inhalation BID mecobalamin (vitamin B12) 2,500 mcg tablet,chewable PO doxycycline monohydrate 100 mg capsule 100 mg PO BID Qty: 20 0RF anastrozole 1 mg tablet 1 mg PO DAILY Qty: 90 1RF Primary Care Provider: Tani Grey Chi Referrals: Tani Grey Chi, MD [Primary Care Provider] - Disposition Disposition: Home, Self Care What to do if you have Problems For any increased pain, shortness of breath, bleeding, nausea or vomiting, chestpain, or any unexpected problems, contact your Primary Care Provider. Call [facility] ([phone]) or report to the closest Emergency Room. Call 911 if necessary. 01/27/24 1210 <Electronically signed by Isauro Kebede DO> Cosigner Signature (if applicable): CC: Dr. Tani Grey MD ~ Signed [facility] Work Phone: 1(644) 766-395704-21-2021 Miscellaneous Notes* Telephone Encounter - Leanne Cavanaugh Lpn, LPN - 01/12/2021 2:16 PM EDT Received outside medical records for non resectable polyp. Should we set up VV as discussed? Please review and advise. Thank you, Leanne documented in this [facility] note Author Jacinto Whitehead [facility] January 27, 2024 12:15pm Note Date/Time January 27, 2024 12:15p [facility] Medical Records Department [address] [place] [address] Consultation - Orthopedics 01/27/24 1207 MR#: [id number] Acct: [id number] Name: MATY HIGH Rep #:[id number] : 1955 68 From: Jacinto martinez DO PCP: Dr. Tani Grey MD Status:REG E R Location: ED HPI Consult Data Date of Consult: 01/27/24 HPI Narrative Reason for Consultation: Left forearm Cat bite HPI Narrative: MATY HIGH, is a 68 F who presents to [facility] emergency department initially yesterday due to redness, pain and swelling in her left forearm secondary to a cat bite approximately 1 week ago. She administered IV antibiotics and discharged on p.o. doxycycline yesterday. She was unable to fill the doxycycline prescription due to her pharmacy being closed. She returned to the emergency department today due to expanding margins on her skin marking around the cellulitis yesterday. Of note, patient had axillary node dissection in her right axilla and nursing staff placed and attempted multiple IVs in the last 24 hours in the left antecubital fossa and volar forearm. She states she has a headache, otherwise denies any feeling of illness. She denies fevers, chills, nausea or vomiting, chest pain or shortness of breath. She denies any numbness or tingling in the left upper extremity. [facility] Medical History (Updated 01/26/24 @ 12:[address] Marcella Griffin MD) Abnormal ultrasound of breast Anemia Ankle sprain Arthritis Asthma Back pain Breast cancer Breast pain, right Bronchitis Chronic constipation Chronic cough Degenerative joint disease Depression Disc degeneration Emphysema lung Encounter for screening for malignant neoplasm of lung Encounter for screening for malignant neoplasm of lung in current smoker with 30pack year history or greater Foot fracture GERD (gastroesophageal reflux disease) Hemorrhoids High cholesterol Hoarseness Hypertension Hypertension Invasive ductal carcinoma of right breast Iron deficiency anemia due to chronic blood loss Osteopenia Post-menopausal Sciatic leg pain Shortness of breath on exertion Smoking greater than 30 pack years SOB (shortness of breath) Tobacco use disorder, continuous Unspecified chronic bronchitis Wears dentures Home Medications atorvastatin 20 mg tablet (Lipitor) 20 mg PO QHS 06/08/20 [History Last Taken 07/03/21] albuterol sulfate 90 mcg/actuation aerosol inhaler 2 puff inhalation Q4H PRN shortness of breath or wheezing #1 device 06/23/20 [Rx Last Taken 07/04/21] amlodipine 2.5 mg tablet 5 mg PO DAILY 06/20/21 [History Last Taken 07/04/21] anastrozole 1 mg tablet 1 mg PO DAILY #90 tabs 04/02/23 [Rx Last Taken Unknown] pravastatin 40 mg tablet 40 mg PO DAILY 05/14/23 [History Last Taken Unknown] budesonide 160 mcg-glycopyr 9 mcg-formot 4.8 mcg/actuation HFA inhaler (Breztri Aerosphere) 2 inh inhalation BID 12/06/23 [History Last Taken Unknown] calcium acetate 667 mg tablet 667 mg PO ONCE 12/06/23 [History Last Taken Unknown] cholecalciferol (vitamin D3) 125 mcg (5,000 unit) capsule 125 mcg PO DAILY 12/06/23 [History Last Taken Unknown] magnesium 250 mg tablet 250 mg PO DAILY 12/06/23 [History Last Taken Unknown] mecobalamin (vitamin B12) 2,500 mcg chewable tablet mcg PO 12/06/23 [History Last Taken Unknown] zinc gluconate 50 mg tablet 50 mg PO DAILY 12/06/23 [History Last Taken Unknown] doxycycline monohydrate 100 mg capsule 100 mg PO BID #20 CAPSULES 01/26/24 [Rx Last Taken Unknown] clindamycin HCl 300 mg capsule 300 mg PO Q8H 10 days #30 caps 01/27/24 [Rx Last Taken Unknown] hydrocodone-acetaminophen 5-325mg 5mg-325mg 1 tab PO Q6H PRN PRN Pain 3 days #12TABLETS 01/27/24 [Rx Last Taken Unknown] Allergy/AdvReac Type Severity Reaction Status Date / Time latex AdvReac Intermediate rash Verified 01/27/24 08:06 Penicillins AdvReac Intermediate Rash Verified 01/27/24 08:06 Family History Mother Diabetes Hypertension Gastric ulcer Hyperlipidemia CVA (cerebral vascular accident) Father Diabetes COPD (chronic obstructive pulmonary disease) Hypertension Prostate cancer Aunt Breast cancer Surgical History H/O tubal ligation History of neck surgery History of tonsillectomy and adenoidectomy Hx of colonoscopy (~2019) Status post right breast lumpectomy Social History Smoking Status: Current every day smoker tobacco type: cigarettes Tobacco: How many years used: 45 how long ago did patient quit smoking: down to only smoking 4 cigarettes/day second hand exposure: Yes alcohol intake: current alcohol intake frequency: holidays/special occasions only substance use type: marijuana caffeine: Yes what type of physical activity do you participate in: none frequency: does not exercise laine/scientology: None seatbelt use: always do you feel safe at home: Yes ROS ROS Narrative 12 point review systems obtained, negative unless otherwise noted HPI. Vital Signs Vital Signs Vital Signs: 01/27/24 08:07 01/27/24 09:10 01/27/24 10:00 Temperature 97.5 F L 98.0 F 97.5 F L Temperature Source Temporal Temporal Temporal Pulse Rate 99 73 79 Respiratory Rate 18 17 17 Blood Pressure 162/137 H 165/69 H 181/76 H Blood Pressure Mean 145 101 111 Pulse Ox 96 98 97 Oxygen Delivery Method Room Air Room Air Room Air 01/27/24 11:00 Temperature 98.2 F Temperature Source Temporal Pulse Rate 88 Respiratory Rate 17 Blood Pressure 183/68 H Blood Pressure Mean 106 Pulse Ox 98 Oxygen Delivery Method Room Air Weight Weight: 145 lb 8 oz Body Mass Index (BMI) 26.7 Physical Exam Narrative General -A&Ox3, NAD, appears stated age. Vital signs stable, afebrile. Respiratory -normal work of breathing, no intercostal retractions. CV -pulses regular, brisk capillary refill ?4 limbs. Abdomen-soft, nontender, nondistended. No guarding, rigidity, rebound tenderness. Musculoskeletal/neurologic -full range of motion nontender throughout right upper extremity, bilateral lower extremities with full sensation and strength inall dermatomes and myotomes. No midline cervical tenderness. Left upper extremity-cellulitic rash noted mid dorsal forearm approximately 8 x 10 cm. This is mildly tender. There is no fluctuance, faint induration is suspected. Cardinal motions of the left hand are intact. Patient is able to actively flex and extend her wrist and reports mild pain. Sensation intact to light touch median/ulnar/radial nerve distributions of the left hand. Radial pulse 2+, brisk capillary refill in the fingertips. Nontender along the volar forearm, antecubital fossa/neurovascular bundle. There is no subcutaneous crepitus. Patient able to range her left elbow without discomfort. Lab / Micro Data 01/27/24 09:14 01/27/24 09:14 Labs: Laboratory Results - last 24 hr 01/27/24 09:14: WBC 8.1, RBC 4.36, Hgb 10.7 L, Hct 33.9 L, MCV 77.8 L, MCH 24.5 L, MCHC 31.6 L, RDW Std Deviation 42.5, RDW Coeff of Marisol 15.1 H, Plt Count 176, MPV 10.5, Immature Gran % (Auto) 0.200, Neut % (Auto) 81.1 H, Lymph % (Auto) 10.4 L, Kendall % (Auto) 8.0, Eos % (Auto) 0.1, Baso % (Auto) 0.2, Absolute Neuts (auto) 6.6, Absolute Lymphs (auto) 0.84, Nucleated RBC % 0, Sodium 136, Potassium 3.5, Chloride 106, Carbon Dioxide 23.0, Anion Gap 7, BUN 16, Creatinine 0.98, Estim Creat Clear Calc 47.77, Est GFR (MDRD) Af Amer 72, Est GFR (MDRD) Non-Af 60, BUN/Creatinine Ratio 16.3, Glucose 111 H, Calcium 9.2 Imaging Radiology Impression Forearm X-Ray 01/27/24 08:42 IMPRESSION: Soft tissue swelling. Indeterminant radiolucencies projecting over the soft tissues within the proximal ventral forearm, may be secondary to recent instrumentation or trauma, cannot exclude a gas producing organism. Electronically Signed: Kristel Myers MD at 9:52 EDT , Upper Extremity CT 01/27/24 10:11 IMPRESSION: Cellulitis of the left forearm without abscess or osteomyelitis. Mild air in the soft tissues of the antecubital fossa extending to the proximal forearm, which may be related to recent instrumentation, penetrating trauma, or infection. Electronically Signed: Dinah Harvey MD at 11:31 EDT , Assessment & Plan Assessment/Plan (1) Cat bite: PLAN: Patient seen and examined. CT scan was reviewed personally. There appears to be cellulitic changes in the area of concern. No obvious fluid collection is seen. There is subcutaneous gas tracking along the fascial plane in the antecubital fossa, however this is consistent with multiple IV sticks. Patient is hemodynamically stable. She has no white count. Due to her not filling her prescription yesterday, she has not failed outpatient therapy for cellulitis. I discussed the case with Dr. Kebede, ER physician. Given her lack of failure of outpatient therapy, I recommended a trial of oral antibiotics. Patient will be discharged on oral doxycycline and clindamycin dueto her penicillin allergy. I recommended follow-up in the next 3 days in the outpatient setting with myself. Patient was educated on signs symptoms of sepsis as well as educated if redness is spreading well beyond the skin margins or she is developing new constitutional symptoms, she should return the emergency department immediately. Patient was administered IV doses of clindamycin and ciprofloxacin while she was in the emergency department today. 01/27/24 1215 <Electronically signed by Jacinto Whitehead DO> Cosigner Signature (if applicable): CC: Dr. Tani Grey MD~ Signed [facility] Work Phone: Consult note Author Joshua Ragland [facility] Note Date/Time March 11, 2025 11:5 1am [facility] Medical Records Department [address] [place] [address] Pre-Anesthesia Evaluation 03/11/25 1146 MR#: [id number] Acct: [id number] Name: MATY HIGH Rep #:[id number] : 1955 69 From: Joshua Ragland MD PCP: Dr. Tani Grey MD Status:REG S DC Y Race: C Location: [place] [address] ASA Classification* ASA Classification ASA Classification: 3 Assessment & Plan Anesthesia* Anesthesia Assessment Anesthesia Assessment: Discussed sedation and/or anesthesia options, risks, benefits, and alternatives with patient/parents/legal guardian/POA. Questions invited. The patient/parents/legal guardian/POA seems to understand and agrees to proceedwith anesthesia plan. Reviewed the physical assessment, medical history, allergy history and patient home medications list prior to surgery/procedure/anesthetic and documented any changes. Performed airway and anesthesia risk assessments. Anesthesia Type Anesthesia Type: MAC History Source History Obtained from:: Patient Anesthesia Focused Assessment* Temperature: 97.7 F Pulse Rate: 75 Blood Pressure: 149/81 Respiratory Rate: 18 Pulse Ox: 98 Oxygen Delivery Method: Room Air Airway Assessment Mouth opens: >3 cm Mallampati Score: III Teeth Condition: Dentures (Patient has full upper and lower dentures. They willbe coming out.) Neck Range of motion (ROM): Limited ROM (Slight decrease in extension) Labs Anesthesia Preop lab: CBC WBC 5.3 K/mm3 (4.4-11.0) 02/09/25 12:07 02/09/25 RBC 4.92 M/mm3 (4.2-5.4) 02/09/25 12:07 02/09/25 Hgb 13.6 g/dL (12.0-15.0) 02/09/25 12:07 02/09/25 Hct 40.9 % (37-47) 02/09/25 12:07 02/09/25 Plt Count 150 K/mm3 (150-450) 02/09/25 12:07 02/09/25 CHEMISTRY Potassium 4.4 mmol/L (3.3-5.1) 02/09/25 12:07 02/09/25 Sodium 141 mmol/L (133-145) 02/09/25 12:07 02/09/25 Magnesium 1.9 mg/dL (1.6-2.6) 05/13/24 05:56 05/13/24 Phosphorus 2.2 mg/dL (2.5-4.9) L 10/23/24 11:08 10/23/24 BUN 16 mg/dL (4-19) 02/09/25 12:07 02/09/25 Creatinine 1.16 mg/dL (0.70-1.20) 02/09/25 12:07 02/09/25 Glucose 91 mg/dL (70-99) 02/09/25 12:07 02/09/25 TSH 5.050 uIU/mL (0.300-4.200) H 02/09/25 12:07 COAG PT 13.4 SECONDS (11.7-14.9) 05/09/24 08:32 Pre-Assessment Diagnosis/Proposed Procedure Planned Operative Procedure(s): EGD Anesthesia History 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 When Was Last Pacemaker Check QUESTION #4 FULL TEXT: You/Your Family Experience fever (hyperthermia) with Anesthesia Last Oral Intake Last Oral intake: Last Oral Intake NPO since 07:00 03/11/25 11:19 Meds taken in AM with sips of Yes 03/11/25 11:19 water? Meds patient instructed to amlodipine 03/11/25 11:19 take am of surgery Any additional information?: Yes Meds taken in AM with sips of water?: Yes PONV PONV - automobile detailer: PONV - automobile detailer Female Yes 03/09/25 13:00 HX of Motion Sickness No 03/09/25 13:00 HX of N/V After Surgery No 03/09/25 13:00 Non-Smoker No 03/09/25 13:00 Duration of Surgery greater No 03/09/25 13:00 than 60 minutes Number of Risk Factors 1 03/09/25 13:00 PONV Score Low Risk 03/09/25 13:00 Height & Weight Height & Weight: Anesthesia: Height & Weight Height 5 ft 2 in 03/11/25 11:19 Weight: 61 kg 03/11/25 11:19 Body Mass Index (BMI) 24.5 03/11/25 11:19 Respiratory Assessment Respiratory Assessment - automobile detailer: Respiratory Tract Infection Hx - automobile detailer Hx Respiratory Tract Infection No 03/09/25 13:00 STOP Sleep Apnea STOP Sleep Apnea - automobile detailer: STOP Sleep Apnea - automobile detailer Hx Hypertension Yes: CONTROLLED WITH MED 03/09/25 13:00 Hx Sleep Apnea No 03/09/25 13:00 CPAP BIPAP Do you snore loudly (louder No 03/09/25 13:00 than talking or can be heard Do you often feel tired/ No 03/09/25 13:00 fatigued/ sleepy during daytime? Has anyone observed you stop No 03/09/25 13:00 breathing during sleep? STOP Results Negative 03/09/25 13:00 QUESTION #5 FULL TEXT : Do you snore loudly (louder than talking or can be heard through closed doors)? 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 Specify any problems Hx of Preganancy in last 3 No 03/09/25 13:00 Months Nurse Filling Out Transfusion DSCHRIBER 03/09/25 13:00 & Questions: Date: 03/09/25 03/09/25 13:00 Time: 13:01 03/09/25 13:00 Patient unable to answer at this time (ie. confused, unrespo /Reproduction History /Reproductive History - automobile detailer: /Reproductive Hx- automobile detailer Hx Now Gestational Age (in weeks): EDC: Hx Hx Para Hx Section SAB No 03/09/25 13:00 Active Medications Active Medications: Current Medications Generic Name Dose Route Start Last Admin Trade Name Freq PRN Reason Stop Dose Admin Lactated Ringer's 1,000 mls @ 15 mls/hr 03/11/25 11:00 03/11/25 11:22 IV 15 mls/hr .Q48H LUKAS Administration PFSH Medical History Low iron History of GI bleed Wears hearing aid Wears glasses Cancer Easy bruising History of ulceration Gastric reflux Shortness of breath on exertion Emphysema, unspecified COPD (chronic obstructive pulmonary disease) History of pain when walking History of edema Hyperparathyroidism Encounter for screening for malignant neoplasm of lung Encounter for screening for malignant neoplasm of lung in current smoker with 30pack year history or greater Sciatic leg pain Wears dentures Post-menopausal Depression High cholesterol Back pain Chronic cough Hypertension Iron deficiency anemia due to chronic blood loss Osteopenia Invasive ductal carcinoma of right breast Arthritis GERD (gastroesophageal reflux disease) Smoking greater than 30 pack years Emphysema lung Bronchitis Asthma Home Medications ?Medication ?Instructions ?Recorded ?Last Taken ?Type albuterol sulfate 90 mcg/actuation 2 puff inhalation Q 4H PRN 06/23/20 07/04/21 Rx aerosol inhaler shortness of breath or wheez ing #1 device pravastatin 40 mg tablet 40 mg PO QHS 05/14/23 History budesonide 160 mcg-glycopyr 9 2 inh inhalation BID 07/11/24 History mcg-formot 4.8 mcg/actuation HFA inhaler (Breztri Aerosphere) potassium chloride 20 mEq 20 meq PO QDAY 02/07/2406/24 History tablet,extended release amlodipine 5 mg tablet 5 mg PO DAILY 03/19/2403/11 07:00 History bupropion HCl (smoking deter) 150 150 mg PO BID 07/11/24 History mg tablet,12 hr sustained-release(smoking deterrent) acetaminophen 500 mg tablet 500 mg PO Q6H PRN PRN Pain Score 05/13/24 Unknown Rx 1-10 #0 tabs cholecalciferol (vitamin D3) 125 125 mcg PO DAILY #30 caps 05/13/24 07/11/24 Rx mcg (5,000 unit) capsule dicyclomine 10 mg capsule 10 mg PO BID #30 caps Unknown Rx baclofen 10 mg tablet 10 mg PO TID PRN abdominal p ain 12/03/24 12/15/24 History omeprazole 40 mg capsule,delayed 40 mg PO DAILY Unknown History release sucralfate 1 gram tablet 1 g PO TID 12/03/24 Unknown History venlafaxine 150 mg 150 mg PO DAILY 12/03/24 Unk nown History capsule,extended release 24 hr anastrozole 1 mg tablet 1 mg PO DAILY #90 tabs 12/22 Unknown Rx diazepam 5 mg tablet 5 mg PO Q8 PRN Muscle Spasm #10 01/08/25 Unknown Rx tabs sumatriptan succinate 100 mg tablet 100 mg PO DAILY ME N headache 03/09/25 Unknown History Allergy/AdvReac Type Severity Reaction Status Date / Time latex AdvReac Intermediate rash Verified 03/11/25 11:15 Penicillins AdvReac Intermediate Rash Verified 03/11/25 11:15 Family History Mother Diabetes Hypertension Gastric ulcer Hyperlipidemia CVA (cerebral vascular accident) Father Diabetes COPD (chronic obstructive pulmonary disease) Hypertension Prostate cancer Aunt Breast cancer Surgical History History of esophagogastroduodenoscopy (EGD) H/O parathyroidectomy S/P parathyroidectomy Hx of colonoscopy Hx of fusion of cervical spine Status post right breast lumpectomy S/P lumpectomy, right breast History of tonsillectomy and adenoidectomy Hx of colonoscopy (~2019) H/O tubal ligation Social History Smoking Status: Current every day smoker tobacco type: cigarettes Tobacco: How many years used: 45 how long ago did patient quit smoking: down to only smoking 4 cigarettes/day second hand exposure: Yes quit status: considering quitting alcohol intake: current alcohol intake frequency: holidays/special occasions only substance use type: marijuana caffeine: Yes what type of physical activity do you participate in: none frequency: does not exercise laine/scientology: None seatbelt use: always do you feel safe at home: Yes additional social history: Review of Systems (Anesthesia) ROS Narrative System reviewed and no additional complaints, except as documented. Physical Exam Resp clear to auscultation bilaterally 03/11/25 1151 <Electronically signed by Joshua martin MD> Date _ Joshua Juniorignángel Signature: Date CC: ~ Signed [facility] Work Phone: Consult note Author Donnell Cuba [facility] Note Date/Time March 11, 2025 12:1 8pm [facility] Medical Records Department [address] [place] [id number] Anesthesia Postop Eval I 03/11/25 1217 MR#: [id number] Acct: [id number] Name: MATY HIGH Rep #:[id number] : 1955 69 From: Donnell Cuba PCP: Dr. Tani Grey MD Status:REG S DC Y Race: C Location: [place] [address] Anesthesia: Postop Eval I Current Vital Signs Temperature: 97.8 F Pulse Rate: 67 Blood Pressure: 118/60 Respiratory Rate: 16 Pulse Ox: 98 Oxygen Delivery Method: Room Air Assessment Airway patent: Yes Spontaneous unlabored respirations: Yes Mental status: Asleep nausea: No Vomiting: No Anesthesia Complication: No Fluid Hydration Crystalloid volume administer (ml): 300 Total IV fluid infused: 300 Progress Note Anesthesia document: Postop Eval 1 completed: Yes 03/11/25 1218 <Electronically signed by Donnell Cuba > Date _ Donnell Barreto Signature: Date CC: ~ Signed [facility] Work Phone: Evaluation note* Diagnosis Onset Date Resolution Status 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 [facility] Work Phone: Evaluation note* Diagnosis Onset Date Resolution Status 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 [id number] acute Tobacco use disorder, continuous acute DDD (degenerative disc disease), lumbar acute Lumbar spondylolysis acute 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 [facility] Work Phone: Evaluation note* Diagnosis Onset Date Resolution Status 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 [id number] acute Tobacco use disorder, continuous acute DDD (degenerative disc disease), lumbar acute Lumbar spondylolysis acute 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 [facility] Work Phone: Evaluation note* Diagnosis Onset Date Resolution Status [id number] acute Tobacco use disorder, continuous acute DDD (degenerative disc disease), lumbar acute Lumbar spondylolysis acute 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 DDD (degenerative disc disease), lumbar acute Lumbar spondylolysis acute 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 [facility] Work Phone: Evaluation note* Diagnosis Onset Date Resolution Status 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 of right breast [facility] Work Phone: Evaluation note* Diagnosis Onset Date Resolution Status 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 [id number] acute Tobacco use disorder, continuous acute [facility] Work Phone: Evaluation note* Diagnosis Onset Date Resolution Status 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 [id number] acute Tobacco use disorder, continuous acute Breast pain, right acute Osteopenia acute 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 [facility] Work Phone: Evaluation note* Diagnosis Onset Date Resolution Status Breast pain, right acute Osteopenia acute 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 Abnormal ultrasound of breast acute Breast pain, left acute Breast pain, right acute Osteopenia acute 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 [facility] Work Phone: Evaluation note* Diagnosis Onset Date Resolution Status Abnormal ultrasound of breast acute Breast pain, left acute Breast pain, right acute Osteopenia acute 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 [facility] Work Phone: Evaluation note* Diagnosis Onset Date Resolution Status Abnormal ultrasound of breast acute Breast pain, left acute Breast pain, right acute Osteopenia acute 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 Author Bright Wheeler [facility] Note Date/Time March 11, 2025 11:0 0am [facility] Medical Records Department [address] [place] [address] History & Physical Exam 03/11/25 1058 MR#: [id number] Acct: [id number] Name: MATY HIGH Rep #:[id number] : 1955 69 From: Bright Wheeler DO PCP: Dr. Tani Grey MD Status:REG S MS Location: [place] [address] HPI - General General Date of Admission: 03/11/25 Date of Service: 03/11/25 Chief Complaint: Anemia HPI Narrative MATY HIGH, is a 69 F who presents with the Chief Complaint: anemia BIG established 9..24 with chronic constipation and abd pain. EGD 7.10.17; one non bleeding gastric ulcer, erythematous tissue in the gastric antrum Colonoscopy 7.10.17; polyps in the sigmoid and hepatic flexure EGD 07.14.24; - Z-line irregular, 39 cm from the incisors. Biopsied. - Hiatal hernia. - Non-bleeding gastric ulcers with no stigmata of bleeding. Biopsied. - Erythematous duodenopathy. Biopsied. 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 No etiology of abd pain identified. Last OV 2.13.25: continues abd pain. worse with exertion and relieved with rest.Feels like period cramps or labor. Started after hormone blockers for her breastcancer. Constipation is well controlled. Recommended f/u with women care OV 12.30.24 Pt presented to hematology appointment 12.24.24 and was found to be anemic with Hgb at 6.6. SHe underwent transfusion of blood and iron. She is feeling better since then. She continues with iron supplement. [facility] Medical History Low iron History of GI bleed Wears hearing aid Wears glasses Cancer Easy bruising History of ulceration Gastric reflux Shortness of breath on exertion Emphysema, unspecified COPD (chronic obstructive pulmonary disease) History of pain when walking History of edema Hyperparathyroidism Encounter for screening for malignant neoplasm of lung Encounter for screening for malignant neoplasm of lung in current smoker with 30pack year history or greater Sciatic leg pain Wears dentures Post-menopausal Depression High cholesterol Back pain Chronic cough Hypertension Iron deficiency anemia due to chronic blood loss Osteopenia Invasive ductal carcinoma of right breast Arthritis GERD (gastroesophageal reflux disease) Smoking greater than 30 pack years Emphysema lung Bronchitis Asthma Home Medications ?Medication ?Instructions ?Recorded ?Last Taken ?Type albuterol sulfate 90 mcg/actuation 2 puff inhalation Q 4H PRN 06/23/20 07/04/21 Rx aerosol inhaler shortness of breath or wheez ing #1 device pravastatin 40 mg tablet 40 mg PO QHS 05/14/23 History budesonide 160 mcg-glycopyr 9 2 inh inhalation BID 07/11/24 History mcg-formot 4.8 mcg/actuation HFA inhaler (Breztri Aerosphere) potassium chloride 20 mEq 20 meq PO QDAY 02/07/2406/24 History tablet,extended release amlodipine 5 mg tablet 5 mg PO DAILY 03/19/2407/11 History bupropion HCl (smoking deter) 150 150 mg PO BID 07/11/24 History mg tablet,12 hr sustained-release(smoking deterrent) acetaminophen 500 mg tablet 500 mg PO Q6H PRN PRN Pain Score 05/13/24 Unknown Rx 1-10 #0 tabs cholecalciferol (vitamin D3) 125 125 mcg PO DAILY #30 caps 05/13/24 07/11/24 Rx mcg (5,000 unit) capsule dicyclomine 10 mg capsule 10 mg PO BID #30 caps Unknown Rx baclofen 10 mg tablet 10 mg PO TID PRN abdominal p ain 12/03/24 12/15/24 History omeprazole 40 mg capsule,delayed 40 mg PO DAILY Unknown History release sucralfate 1 gram tablet 1 g PO TID 12/03/24 Unknown History venlafaxine 150 mg 150 mg PO DAILY 12/03/24 Unk nown History capsule,extended release 24 hr anastrozole 1 mg tablet 1 mg PO DAILY #90 tabs 12/22 Unknown Rx diazepam 5 mg tablet 5 mg PO Q8 PRN Muscle Spasm #10 01/08/25 Unknown Rx tabs sumatriptan succinate 100 mg tablet 100 mg PO DAILY ME N headache 03/09/25 Unknown History Allergy/AdvReac Type Severity Reaction Status Date / Time latex AdvReac Intermediate rash Verified 03/09/25 12:56 Penicillins AdvReac Intermediate Rash Verified 03/09/25 12:56 Family History Mother Diabetes Hypertension Gastric ulcer Hyperlipidemia CVA (cerebral vascular accident) Father Diabetes COPD (chronic obstructive pulmonary disease) Hypertension Prostate cancer Aunt Breast cancer Surgical History History of esophagogastroduodenoscopy (EGD) H/O parathyroidectomy S/P parathyroidectomy Hx of colonoscopy Hx of fusion of cervical spine Status post right breast lumpectomy S/P lumpectomy, right breast History of tonsillectomy and adenoidectomy Hx of colonoscopy (~2019) H/O tubal ligation Social History Smoking Status: Current every day smoker tobacco type: cigarettes Tobacco: How many years used: 45 how long ago did patient quit smoking: down to only smoking 4 cigarettes/day second hand exposure: Yes quit status: considering quitting alcohol intake: current alcohol intake frequency: holidays/special occasions only substance use type: marijuana caffeine: Yes what type of physical activity do you participate in: none frequency: does not exercise laine/scientology: None seatbelt use: always do you feel safe at home: Yes additional social history: ROS Constitutional Constitutional: Denies fatigue, fever(s), poor appetite, weight gain or weight loss Gastrointestinal Gastrointestinal: Denies belching, bloating, change in bowel habits, change in stool character, chewing difficulty, coffee ground emesis, constipation, cramping, diarrhea, dyspepsia, dysphagia, early satiety, excessive flatus, fecalincontinence, heartburn, hematemesis, hematochezia, hemorrhoids, loose stools, melena, nausea, odynophagia, rectal bleeding, tenesmus, vomiting or weight changes Physical Exam Const alert, oriented x3, no apparent distress and healthy appearing General Appearance: cooperative GI normal to inspection, nondistended, normoactive bowel sounds, soft to palpation,non-tender and non-distended Percussion: normal to percussion Rectal Exam: deferred Assessment & Plan Assessment/Plan (1) Anemia: QUALIFIERS: Anemia type: iron deficiency Iron deficiency anemia type: unspecified iron deficiency Qualified Code(s): D50.9 - Iron deficiency anemia, unspecified (2) Iron (Fe) deficiency anemia: QUALIFIERS: Iron deficiency anemia type: unspecified iron deficiency Qualified Code(s): D50.9 - Iron deficiency anemia, unspecified (3) History of gastric ulcer: PLAN: Assessment and Plan Assessment and Plan (1) Anemia: Status: Acute Qualifiers: Anemia type: iron deficiency Iron deficiency anemia type: unspecified iron deficiency Qualified Code(s): D50.9 - Iron deficiency anemia, unspecified Plan: This is a 69 yo female pt here today for f/u regarding her anemia. Pt has been chronically anemic for some time now. SHe has undergone colonoscopy, EGD and capsule endoscopy all within the past year. 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 She recently was found to have severe anemia at 6.6 and underwent blood transfusion. Her stool was positive for blood. I discussed case with Dr. Wheeler; he does not feel that this degree of anemia would be caused by the single AVM in her small bowel. She will undergo repeat EGD to rule out bleeding ulcer. -EGD -f/u after procedure (2) History of gastric ulcer: Status: Acute 03/11/25 1100 <Electronically signed by Bright Wheeler DO> Cosigner Signature (if applicable): CC: Dr. Tani Grey MD; Bright Wheeler DO~ Signed [facility] Work Phone: Reason for referral (narrative)* Diagnostic Procedure Only (Routine) - Authorized Specialty Diagnoses / Procedures Referred By Contac t Referred To Contact [facility] Diagnoses Pelvic pain in female Procedures PELVIC US WHI US PELVIC NONOBSTETRIC REAL-TIME IMAGE COMPLETE Kianna Tobar APRN.AIRPLANE AND ENGINE INSPECTOR [address] [place] [address] [facility] [address] [place] [address] Referral ID Status Reason Start Date Expiration Date Visits Requested Visits Authorized [id number] Authorized Auto-Generat ed Referral 06/27/2024 06/27/2025 [address] [facility] [address] (narrative)No reason for referral [facility] Work Phone: Chief Complaint and Reason for Visit Chief Complaint 3 MO - NO LABS 3 MO - NO LABS RADIATION INJURY LOW BACK PAIN, LT SCIATICA,HX BREAST CA NEW ONSET HEADACHE, HX BREAST CA Reason for Visit Invasive ductal carc inoma of right breast Invasive ductal carcinoma of right breast Chief Complaint 3 MO - NO LABS RADIATION INJURY LOW BACK PAIN, LT SCIATICA,HX BREAST CA NEW ONSET HEADACHE, HX BREAST CA F/u SCREENING LUNG CANCER SCREENING SMOKER > 20 PK YRS Lumbar pain Rm 5 xray 3 MO - NO LABS Reason for Visit Invasive ductal carc inoma of right breast Invasive ductal carcinoma of right breast [id number] Tobacco use disorder, continuous DDD (degenerative disc disease), lumbar Lumbar spondylolysis Invasive ductal carcinoma of right breast Chief Complaint NEW ONSET HEADACHE, HX BREAST CA F/u SCREENING LUNG CANCER SCREENING SMOKER > 20 PK YRS Lumbar pain Rm 5 xray 3 MO - NO LABS LUMBAR RAD Reason for Visit Invasive ductal carc inoma of right breast [id number] Tobacco use disorder, continuous DDD (degenerative disc disease), lumbar Lumbar spondylolysis Invasive ductal carcinoma of right breast Chief Complaint LUNG CANCER SCREENIN G SMOKER > 20 PK YRS Lumbar pain Rm 5 xray 3 MO - NO LABS LUMBAR RAD Lumbar spine RADIATION INJURY 4 month f/u breast 3MO NO LABS Reason for Visit [id number] Tobacco use disorder, continuous DDD (degenerative disc disease), lumbar Lumbar spondylolysis Invasive ductal carcinoma of right breast DDD (degenerative disc disease), lumbar Lumbar spondylolysis Invasive ductal carcinoma of right breast Invasive ductal carcinoma of right breast Chief Complaint ? NODULE ON MRI, SOF T TISSUE BEHIND RT SI JOINT 3 MO - NO LABS - REVIEW U/S 4MO F/U -BREAST- RADIATION INJURY follow up 2 nodules Reason for Visit Invasive ductal carc inoma of right breast Invasive ductal carcinoma of right breast Chief Complaint ? NODULE ON MRI, SOF T TISSUE BEHIND RT SI JOINT 3 MO - NO LABS - REVIEW U/S 4MO F/U -BREAST- RADIATION INJURY follow up 2 nodules 3 MO - NO LABS - REVIEW U/S Reason for Visit Invasive ductal carc inoma of right breast Invasive ductal carcinoma of right breast Invasive ductal carcinoma of right breast Chief Complaint follow up 2 nodules 3 MO - NO LABS - REVIEW U/S 4 month f/u breast Lung cancer (pulmonary) TOBACCO USE Reason for Visit Invasive ductal carc inoma of right breast Invasive ductal carcinoma of right breast [id number] Tobacco use disorder, continuous Chief Complaint 4 month f/u breast Lung cancer (pulmonary) TOBACCO USE 4 MO - NO LABS Amb Documentation RT BREAST Reason for Visit Invasive ductal carc inoma of right breast [id number] Tobacco use disorder, continuous Breast pain, right Osteopenia Invasive ductal carcinoma of right breast Chief Complaint 4 MO - NO LABS Amb Documentation RT BREAST DILATED BREAST DUCTS 3 MO - LABS RADIATION INJURY Reason for Visit Breast pain, right Osteopenia Invasive ductal carcinoma of right breast Abnormal ultrasound of breast Breast pain, left Breast pain, right Osteopenia Invasive ductal carcinoma of right breast Chief Complaint DILATED BREAST DUCTS 3 MO - LABS RADIATION INJURY KIDNEY FAILURE Reason for Visit Abnormal ultrasound of breast Breast pain, left Breast pain, right Osteopenia Invasive ductal carcinoma of right breast Chief Complaint DILATED BREAST DUCTS 3 MO - LABS RADIATION INJURY KIDNEY FAILURE CAT BITE Reason for Visit Abnormal ultrasound of breast Breast pain, left Breast pain, right Osteopenia Invasive ductal carcinoma of right breast Chief Complaint DILATED BREAST DUCTS 3 MO - LABS RADIATION INJURY KIDNEY FAILURE CAT BITE bite Reason for Visit Abnormal ultrasound of breast Breast pain, left Breast pain, right Osteopenia Invasive ductal carcinoma of right breast Cat bite Chief Complaint Admit Date screening August 18, 2024 10:02am SCREENING August 26, 2024 1 :41pm Lung cancer screening August 26, 2024 1:54pm Per DR GREY August 29, 2024 2 :47pm 6 MONTH F/U BREAST September 02, 2024 2:51pm Pill Cam September 08, 2024 8:57am PVD September 30, 2024 10 :49am Test Result November 06, 2024 10:24am Vascular disorder of intestine, unspecif ied November 14, 2024 12:16pm KIDNEY DISEASE--NEEDS LABS TOO November 8:43am Shortness of breath December 03, 2024 2:0 8pm RADIATION INJURY December 04, 2024 8:0 0am 2OOMG VEN[place]ER December 05, 2024 10: 55am Reason for Visit Admit Date Encounter for screening for malignant neoplasm of lung in current smoker wi August 26, 2024 1:54pm Tobacco use disorder, continuous Decembe r 2023 1:54pm Abdominal pain August 29, 2024 2 :47pm Anemia August 29, 2024 2 :47pm Pelvic pain August 29, 2024 2 :47pm 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 September 02, 2024 2:51pm Abdominal pain November 06, 2024 10:24am Pelvic pain November 06, 2024 10:24am Chronic constipation November 06, 2024 10:24am Anemia December 03, 2024 2:0 8pm Iron (Fe) deficiency anemia December 03, 2024 2:08pm Osteopenia December 03, 2024 2:0 8pm Chief Complaint Admit Date screening August 18, 2024 10:02am SCREENING August 26, 2024 1 :41pm Lung cancer screening August 26, 2024 1:54pm Per DR GREY August 29, 2024 2 :47pm 6 MONTH F/U BREAST September 02, 2024 2:51pm Pill Cam September 08, 2024 8:57am PVD September 30, 2024 10 :49am Test Result November 06, 2024 10:24am Vascular disorder of intestine, unspecif ied November 14, 2024 12:16pm KIDNEY DISEASE--NEEDS LABS TOO November 8:43am Shortness of breath December 03, 2024 2:0 8pm RADIATION INJURY December 04, 2024 8:0 0am 2OOMG VENOFER December 05, 2024 10: 55am 2OOMG VENOFER December 08, 2024 12: 48pm Chief Complaint Admit Date screening August 18, 2024 10:02am SCREENING August 26, 2024 1 :41pm Lung cancer screening August 26, 2024 1:54pm Per DR GREY August 29, 2024 2 :47pm 6 MONTH F/U BREAST September 02, 2024 2:51pm Pill Cam September 08, 2024 8:57am PVD September 30, 2024 10 :49am Test Result November 06, 2024 10:24am Vascular disorder of intestine, unspecif ied November 14, 2024 12:16pm KIDNEY DISEASE--NEEDS LABS TOO November 8:43am Shortness of breath December 03, 2024 2:0 8pm RADIATION INJURY December 04, 2024 8:0 0am 2OOMG VENOFER December 05, 2024 10: 55am 2OOMG VENOFER December 08, 2024 12: 48pm 2OOMG VENOFER December 10, 2024 12: 35pm Chief Complaint Admit Date screening August 18, 2024 10:02am SCREENING August 26, 2024 1 :41pm Lung cancer screening August 26, 2024 1:54pm Per DR GREY August 29, 2024 2 :47pm 6 MONTH F/U BREAST September 02, 2024 2:51pm Pill Cam September 08, 2024 8:57am PVD September 30, 2024 10 :49am Test Result November 06, 2024 10:24am Vascular disorder of intestine, unspecif ied November 14, 2024 12:16pm KIDNEY DISEASE--NEEDS LABS TOO November 8:43am Shortness of breath December 03, 2024 2:0 8pm RADIATION INJURY December 04, 2024 8:0 0am 2OOMG VENOFER December 05, 2024 10: 55am 2OOMG VENOFER December 08, 2024 12: 48pm 2OOMG VENOFER December 10, 2024 12: 35pm 2OOMG VENOFER December 12, 2024 10: 43am Chief Complaint Admit Date screening August 18, 2024 10:02am SCREENING Suman 3rd, 2024 1 :41pm Lung cancer screening August 26, 2024 1:54pm Per DR GREY August 29, 2024 2 :47pm 6 MONTH F/U BREAST September 02, 2024 2:51pm Pill Cam September 08, 2024 8:57am PVD September 30, 2024 10 :49am Test Result November 06, 2024 10:24am Vascular disorder of intestine, unspecif ied November 14, 2024 12:16pm KIDNEY DISEASE--NEEDS LABS TOO November 8:43am Shortness of breath December 03, 2024 2:0 8pm RADIATION INJURY December 04, 2024 8:0 0am 2OOMG VENOFER December 05, 2024 10: 55am 2OOMG VENOFER December 08, 2024 12: 48pm 2OOMG VENOFER December 10, 2024 12: 35pm 2OOMG VENOFER December 12, 2024 10: 43am 2OOMG VENOFER December 15, 2024 12: 42pm Chief Complaint Admit Date 6 MONTH F/U BREAST September 02, 2024 2:51pm Pill Cam September 08, 2024 8:57am PVD September 30, 2024 10 :49am Test Result November 06, 2024 10:24am Vascular disorder of intestine, unspecif ied November 14, 2024 12:16pm KIDNEY DISEASE--NEEDS LABS TOO November 8:43am Shortness of breath December 03, 2024 2:0 8pm 2OOMG VENOFER December 05, 2024 10: 55am 2OOMG VENOFER December 08, 2024 12: 48pm 2OOMG VENOFER December 10, 2024 12: 35pm 2OOMG VENOFER December 12, 2024 10: 43am 2OOMG VENOFER December 15, 2024 12: 42pm 2WKS LABS December 22, 2024 9:4 6am RIGHT GROIN MASS December 23, 2024 10:1 4am REVIEW U/S - LABS December 24, 2024 12:2 1pm RADIATION INJURY December 24, 2024 12:3 0pm Reason for Visit Admit Date 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 September 02, 2024 2:51pm Abdominal pain November 06, 2024 10:24am Pelvic pain November 06, 2024 10:24am Chronic constipation November 06, 2024 10:24am Anemia December 03, 2024 2:0 8pm Iron (Fe) deficiency anemia December 03, 2024 2:08pm Osteopenia December 03, 2024 2:0 8pm Iron (Fe) deficiency anemia December 22, 2024 9:46am Osteopenia December 22, 2024 9:4 6am Right groin mass December 22, 2024 9:4 6am 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 December 22, 2024 9:46am Anemia December 24, 2024 12:2 1pm Iron (Fe) deficiency anemia December 24, 2 025 12:21pm Osteopenia December 24, 2024 12:2 1pm Right groin mass December 24, 2024 12:2 1pm 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 December 24, 2024 12:21pm Chief Complaint Admit Date PVD September 30, 2024 10 :49am Test Result November 06, 2024 10:24am Vascular disorder of intestine, unspecif ied November 14, 2024 12:16pm KIDNEY DISEASE--NEEDS LABS TOO November 8:43am Shortness of breath December 03, 2024 2:0 8pm 2OOMG VENOFER December 05, 2024 10: 55am 2OOMG VENOFER December 08, 2024 12: 48pm 2OOMG VENOFER December 10, 2024 12: 35pm 2OOMG VENOFER December 12, 2024 10: 43am 2OOMG VENOFER December 15, 2024 12: 42pm 2WKS LABS December 22, 2024 9:4 6am RIGHT GROIN MASS December 23, 2024 10:1 4am REVIEW U/S - LABS December 24, 2024 12:2 1pm RADIATION INJURY December 24, 2024 12:3 0pm Test Result December 30, 2024 10:2 4am neck/ headache January 08, 2025 5:1 2pm Reason for Visit Admit Date Abdominal pain November 06, 2024 10:24am Pelvic pain November 06, 2024 10:24am Chronic constipation November 06, 2024 10:24am Anemia December 03, 2024 2:0 8pm Iron (Fe) deficiency anemia December 03, 2024 2:08pm Osteopenia December 03, 2024 2:0 8pm Iron (Fe) deficiency anemia December 22, 2024 9:46am Osteopenia December 22, 2024 9:4 6am Right groin mass December 22, 2024 9:4 6am 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 December 22, 2024 9:46am Anemia December 24, 2024 12:2 1pm Iron (Fe) deficiency anemia December 24 025 12:21pm Osteopenia December 24, 2024 12:2 1pm Right groin mass December 24, 2024 12:2 1pm 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 December 24, 2024 12:21pm Anemia December 30, 2024 10:2 4am History of gastric ulcer December 30, 2024 10:24am Chief Complaint Admit Date Vascular disorder of intestine, unspecif ied November 14, 2024 12:16pm KIDNEY DISEASE--NEEDS LABS TOO November 8:43am Shortness of breath December 03, 2024 2:0 8pm 2OOMG VENOFER December 05, 2024 10: 55am 2OOMG VENOFER December 08, 2024 12: 48pm 2OOMG VENOFER December 10, 2024 12: 35pm 2OOMG VENOFER December 12, 2024 10: 43am 2OOMG VENOFER December 15, 2024 12: 42pm 2WKS LABS December 22, 2024 9:4 6am RIGHT GROIN MASS December 23, 2024 10:1 4am REVIEW U/S - LABS December 24, 2024 12:2 1pm RADIATION INJURY December 24, 2024 12:3 0pm Test Result December 30, 2024 10:2 4am neck/ headache January 08, 2025 5:1 2pm MIGRAINE January 09, 2025 12: 47pm Reason for Visit Admit Date Anemia December 03, 2024 2:0 8pm Iron (Fe) deficiency anemia December 03, 2024 2:08pm Osteopenia December 03, 2024 2:0 8pm Iron (Fe) deficiency anemia December 22, 2024 9:46am Osteopenia December 22, 2024 9:4 6am Right groin mass December 22, 2024 9:4 6am 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 December 22, 2024 9:46am Anemia December 24, 2024 12:2 1pm Iron (Fe) deficiency anemia December 24 025 12:21pm Osteopenia December 24, 2024 12:2 1pm Right groin mass December 24, 2024 12:2 1pm 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 December 24, 2024 12:21pm Anemia December 30, 2024 10:2 4am History of gastric ulcer December 30, 2024 10:24am Anemia March 11, 2025 10:3 8am History of gastric ulcer March 11, 2025 10:38am Iron (Fe) deficiency anemia March 11 10:38am Chief Complaint Admit Date 2WKS LABS December 22, 2024 9:4 6am RIGHT GROIN MASS December 23, 2024 10:1 4am REVIEW U/S - LABS December 24, 2024 12:2 1pm Test Result December 30, 2024 10:2 4am neck/ headache January 08, 2025 5:1 2pm MIGRAINE January 09, 2025 12: 47pm 3 MO - LABS April 15, 2025 1:12 pm RADIATION INJURY April 15, 2025 1:15 pm Reason for Visit Admit Date Iron (Fe) deficiency anemia December 22, 2024 9:46am Osteopenia December 22, 2024 9:4 6am Right groin mass December 22, 2024 9:4 6am 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 December 22, 2024 9:46am Anemia December 24, 2024 12:2 1pm Iron (Fe) deficiency anemia December 24 12:21pm Osteopenia December 24, 2024 12:2 1pm Right groin mass December 24, 2024 12:2 1pm 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 December 24, 2024 12:21pm Anemia December 30, 2024 10:2 4am History of gastric ulcer December 30, 2024 10:24am Anemia March 11, 2025 10:3 8am History of gastric ulcer March 11, 2025 10:38am Iron (Fe) deficiency anemia March 11 025 10:38am Osteopenia April 15, 2025 1:12 pm 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 April 15, 2025 1:12pm Chief Complaint Admit Date 3 MO - LABS April 15, 2025 1:12 pm RADIATION INJURY April 15, 2025 1:15 pm LABS May 14, 2025 4: 09pm Reason for Visit Admit Date Anemia March 11, 2025 10:3 8am History of gastric ulcer March 11, 2025 10:38am Iron (Fe) deficiency anemia March 11, 025 10:38am Osteopenia April 15, 2025 1:12 pm 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 April 15, 2025 1:12pm Chief Complaint Admit Date 3 MO - LABS April 15, 2025 1:12 pm LABS May 14, 2025 4: 09pm 6 MO - LABS - PROLIA June 08 1:01pm RADIATION INJURY June 08, 2025 1:15pm Reason for Visit Admit Date Anemia March 11, 2025 10:3 8am History of gastric ulcer March 11, 2025 10:38am Iron (Fe) deficiency anemia March 11 10:38am Osteopenia April 15, 2025 1:12 pm 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 April 15, 2025 1:12pm Osteopenia June 08, 2025 1:01pm 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 June 08, 2025 1:01pm Family History No Family History Records Found Relationship Condition Age at Onset Recorded Date/T va mother Diabetes mellitus Unknown Hypertension Unknown Gastric ulcer Unknown Hyperlipidemia Unknown Cerebrovascular accident (CVA) Unknown father Diabetes mellitus Unknown Chronic obstructive pulmonary disease Unk nown Malignant neoplasm of prostate Unknown aunt Malignant neoplasm of breast Unknown Advance Directives No Advanced Directives Records Found Advance Directive Response Recorded Date/ Time Advance Directives on File Yes Decem 2020 4:05pm Advance Directives Yes August 4:05pm Living Will Yes September 14 021 4:05pm Power of Driller Portable Yes September 14, 2021 4:05pm Advance Directive Response Recorded Date/ Time Advance Directives on File Yes Decem 2020 3:05pm Advance Directives Yes August 3:05pm Living Will Yes September 14 021 3:05pm Power of Driller Portable Yes September 14, 2021 3:05pm Advance Directive Response Recorded Date/ Time Advance Directives Yes August 3:05pm Living Will Yes September 14 021 3:05pm Power of Driller Portable Yes September 14, 2021 3:05pm Advance Directive Response Recorded Date/ Time Advance Directives on File Yes Decem eddi 2020 4:05pm Advance Directives Yes August 4:05pm Living Will No January 26, 2024 9: 57am Power of Driller Portable No January 26, 2024 9:57am Advance Directive Response Recorded Date/ Time Advance Directives on File Yes Decem eddi 2020 4:05pm Advance Directives Yes August 4:05pm Living Will No January 27, 2024 8: 23am Power of Driller Portable No January 27, 2024 8:23am Advance Directive Response Recorded Date/ Time Living Will No February 19, 2024 8 :40am Power of Driller Portable No February 19, 2024 8:40am Living Will Yes July 08 4:03pm Power of Driller Portable Yes July 08, 2024 4:03pm Advance Directives on File Yes Decem eddi 2020 4:05pm Living Will Yes May 12 6:09pm Power of Driller Portable Yes May 12, 6:09pm Advance Directives Yes August 4:05pm Advance Directive Response Recorded Date/ Time Living Will No February 19, 2024 8 :40am Do you have a Healthcare Power of Driller Portable? No February 19, 2024 8:40am Living Will Yes July 08 4:03pm Do you have a Healthcare Power of Driller Portable? Yes July 08, 2024 4:03pm Advance Directives on File Yes Decem eddi 2020 4:05pm Living Will Yes May 12 6:09pm Do you have a Healthcare Power of Driller Portable? Yes May 12, 2024 6:09pm Advance Directives Yes August 4:05pm Advance Directive Response Recorded Date/ Time Living Will No February 19, 2024 8 :40am Do you have a Healthcare Power of Driller Portable? No February 19, 2024 8:40am Advance Directives on File Yes Decem eddi 2020 4:05pm Living Will Yes May 12 6:09pm Do you have a Healthcare Power of Driller Portable? Yes May 12, 2024 6:09pm Advance Directives Yes August 4:05pm Advance Directive Response Recorded Date/ Time Advance Directives on File Yes Decem eddi 2020 4:05pm Living Will Yes May 12 6:09pm Do you have a Healthcare Power of Driller Portable? Yes May 12, 2024 6:09pm Advance Directives Yes August 4:05pm Living Will No January 08, 2025 6:00pm Do you have a Healthcare Power of Driller Portable? No January 08, 2025 6:00pm Advance Directive Response Recorded Date/ Time Advance Directives on File Yes Decem eddi 2020 4:05pm Living Will Yes May 12 6:09pm Do you have a Healthcare Power of Driller Portable? Yes May 12, 2024 6:09pm Advance Directives Yes August 4:05pm Do you have a Healthcare Power of Driller Portable? No March 09, 2025 1:00pm Living Will No January 08, 2025 6:00pm Do you have a Healthcare Power of Driller Portable? No January 08, 2025 6:00pm Advance Directive Response Recorded Date/ Time Advance Directives on File Yes Decem eddi 2020 4:05pm Living Will Yes May 12 6:09pm Do you have a Healthcare Power of Driller Portable? Yes May 12, 2024 6:09pm Advance Directives Yes August 4:05pm Do you have a Healthcare Power of Driller Portable? No March 09, 2025 1:00pm Summary Purpose Additional Source Comments Source Comments (unrecognize d section and content) In the event this informatio n is protected by the Federal Confidentiality of Alcohol and Drug Abuse Patient Records regulations: The Federal rules restrict any use of the information to criminally investigate or prosecute any alcohol or drug abuse patient.[facility] the event this information is protected by the Federal Confidentiality of Alcohol and Drug Abuse Patient Records regulations: The Federal rules restrict any use of the information to criminally investigate or prosecute any alcohol or drug abuse patient.[facility] the event this information is protected by the Federal Confidentiality of Alcohol and Drug Abuse Patient Records regulations: The Federal rules restrict any use of the information to criminally investigate or prosecute any alcohol or drug abuse patient.[facility] the event this information is protected by the Federal Confidentiality of Alcohol and Drug Abuse Patient Records regulations: The Federal rules restrict any use of the information to criminally investigate or prosecute any alcohol or drug abuse patient.[facility] Reason for Visit (unrecogniz ed section and content) Reason Comments Received Outside Medical Records Reason Comments Problem Visit Patient reported sha rp pelvic pain. Goals (unrecognized section and content) Goals may be documented in a n alternate sectionGoals may be documented in an alternate sectionGoals may be documented in an alternate sectionGoals may be documented in an alternate sectionGoals may be documented in an alternate sectionGoals may be documented in an alternate sectionGoals may be documented in an alternate sectionGoals may be documented in an alternate sectionGoals may be documented in an alternate sectionGoals may be documented in an alternate sectionGoals may be documented in an alternate sectionGoals may be documented in an alternate sectionGoals may be documented in an alternate sectionGoals may be documented in an alternate sectionGoals may be documented in an alternate sectionGoals may be documented in an alternate sectionGoals may be documented in an alternate sectionGoals may be documented in an alternate sectionGoals may be documented in an alternate sectionGoals may be documented in an alternate section Care Teams (unrecognized sec tion and content) Team Status: Active Member Role Status Dates Dr. Frederick Poe MD Family Provider Active Dr. Tani Grey MD Primary Care Provider Active Team Status: Inactive Member Role Status Dates Dr. Frederick Poe MD Primary Care Provider, Referring Provider Active Dr. Cristino Degroot MD Attending Provider Active Team Status: Inactive Member Role Status Dates Dr. Frederick Poe MD Primary Care Provider Active Dr. Sean Dos Santos DO Attending Provider Active Team Status: Inactive Member Role Status Dates Dr. Frederick Poe MD Primary Care Provider Active Anastacia Diaz AFRICANA STUDIES PROFESSOR, [employer] STUDIES PROFESSOR-C Attending Provider, Referring Provider Active Team Status: Inactive Member Role Status Dates Dr. Frederick Poe MD Primary Care Provider, Referring Provider Active Dr. Stefan Ibanez DO Attending Provider Active Team Status: Inactive Member Role Status Dates Dr. Frederick Poe MD Primary Care Provider Active Dr. Jonh Bedoya MD Attending Provider Active Team Status: Inactive Member Role Status Dates Dr. Cristino Degroot MD Attending Provider Active Dr. Tani Grey MD Primary Care Provider Active Tani Grey MD Referring Provider Active Team Status: Active Member Role Status Dates Dr. Frederick Poe MD Primary Care Provider Active Dr. Sean Dos Santos DO Attending Provider Active Dr. Louis Segal MD Referring Provider Active Team Status: Inactive Member Role Status Dates Dr. Frederick Poe MD Primary Care Provider Active Anastacia Diaz A[employer] STUDIES PROFESSOR, A[employer] STUDIES PROFESSOR-C Attending Provider Active Team Status: Inactive Member Role Status Dates Dr. Frederick Poe MD Primary Care Provider Active Dr. Stefan Ibanez DO Attending Provider, Referring P matty Active Team Status: Inactive Member Role Status Dates Dr. Frederick Poe MD Primary Care Provider Active Dr. Tani Grey MD Attending Provider Active Team Status: Inactive Member Role Status Dates Dr. Sean Dos Santos DO Attending Provider Active Dr. Tani Grey MD Primary Care Provider Active Team Status: Inactive Member Role Status Dates Dr. Cristino Degroot MD Attending Provider Active Dr. Tani Grey MD Primary Care Provider, Referring Provider Active Team Status: Inactive Member Role Status Dates Dr. Cristino Degroot MD Attending Provider, Referrin g Provider Active Dr. Tani Grey MD Primary Care Provider Active Team Status: Inactive Member Role Status Dates Dr. Tani Grey MD Primary Care Provider Active Dr. Cristino Degroot MD Attending Provider, Referrin g Provider Active Team Status: Active Member Role Status Dates Dr. Tani Grey MD Primary Care Provider, Attending Provider Active Team Status: Inactive Member Role Status Dates Dr. Tani Grey MD Primary Care Provider, Referring Provider Active Dr. Cristino Degroot MD Attending Provider Active Team Status: Inactive Member Role Status Dates Dr. Tani Grey MD Primary Care Provider, Attending Provider Active Team Status: Inactive Member Role Status Dates Dr. Tani Grey MD Primary Care Provider Active Dr. Sean Dos Santos DO Attending Provider Active Team Status: Inactive Member Role Status Dates Dr. Tani Grey MD Primary Care Provider Active Anastacia Diaz A[employer] STUDIES PROFESSOR, A[employer] STUDIES PROFESSOR-C Attending Provider, Referring Provider Active Team Status: Inactive Member Role Status Dates Dr. Tani Grey MD Primary Care Provider Active Anastacia Diaz AFR[employer] STUDIES PROFESSOR, A[employer] STUDIES PROFESSOR-C Attending Provider Active Dr. Cristino Degroot MD Referring Provider Active Team Status: Inactive Member Role Status Dates Dr. Tani Grey MD Primary Care Provider, Referring Provider Active Anastacia Diaz [employer] STUDIES PROFESSOR, A[employer] STUDIES PROFESSOR-C Attending Provider Active Team Status: Active Member Role Status Dates Dr. Tani Grey MD Primary Care Provider Active Inessa Mayorga LPN Attending Provider Active Team Status: Inactive Member Role Status Dates Dr. Tani Grey MD Primary Care Provider, Referring Provider Active Dr. Kylah Aguero MD Attending Provider Active Team Status: Inactive Member Role Status Dates Dr. Tani Grey MD Primary Care Provider Active Dr. Radha Brothers DO Attending Provider, Referring P matty Active Team Status: Inactive Member Role Status Dates Dr. Tani Grey MD Primary Care Provider Active Dr. Marcella Griffin MD Emergency Provider Active Team Status: Inactive Member Role Status Dates Dr. Tani Grey MD Primary Care Provider Active Dr. Isauro Kebede DO Emergency Provider Active Granite Installer Relationship Specialty Start Date End Date Evita Camargodi JESUS [address] [place] [address] PCP - General Family Medicine 09/05/13 Team Status: Active Member Role Status Dates Dr. Tani Grey MD Primary Care Provider Active Team Status: Inactive Member Role Status Dates Dr. Tani Grey MD Primary Care Provider Active Start: August 18, 2024 End: August 18, 2024 Dr. Sean Dos Santos DO Attending Provider Active Start: August 18, 2024 End: August 18, 2024 Dr. Sean Dos Santos DO Referring Provider Active Start: August 18, 2024 End: August 18, 2024 Team Status: Inactive Member Role Status Dates Dr. Tani Grey MD Primary Care Provider Active Start: August 19, 2024 End: August 19, 2024 Dr. Tani Grey MD Attending Provider Active Start: August 19, 2024 End: August 19, 2024 Team Status: Inactive Member Role Status Dates Dr. Tani Grey MD Primary Care Provider Active Start: August 25, 2024 End: August 25, 2024 Dr. Tani Grey MD Attending Provider Active Start: August 25, 2024 End: August 25, 2024 Dr. Tani Grey MD Referring Provider Active Start: August 25, 2024 End: August 25, 2024 Team Status: Inactive Member Role Status Dates Dr. Tani Grey MD Primary Care Provider Active Start: August 26, 2024 End: August 26, 2024 Anastacia Diaz AFR[employer]NA STUDIES PROFESSOR, A[employer]NA STUDIES PROFESSOR-C Attending Provider Active Start: August 26, 2024 End: August 26, 2024 Anastacia Diaz AFRICANA STUDIES PROFESSOR, AFR[employer] STUDIES PROFESSOR-C Referring Provider Active Start: August 26, 2024 End: August 26, 2024 Team Status: Inactive Member Role Status Dates Dr. Tani Grey MD Primary Care Provider Active Start: August 29, 2024 End: August 29, 2024 Dr. Tani Grey MD Referring Provider Active Start: August 29, 2024 End: August 29, 2024 DANIEL Garcia Attending Provider Active Start: August 29, 2024 End: August 29, 2024 Team Status: Inactive Member Role Status Dates Dr. Tani Grey MD Primary Care Provider Active Start: September 02, 2024 End: September 02, 2024 Dr. Tani Grey MD Referring Provider Active Start: September 02, 2024 End: September 02, 2024 Dr. Sean Dos Santos DO Attending Provider Active Start: September 02, 2024 End: September 02, 2024 Team Status: Inactive Member Role Status Dates Dr. Tani Grey MD Primary Care Provider Active Start: September 08, 2024 End: September 08, 2024 Dr. Tani Grey MD Referring Provider Active Start: September 08, 2024 End: September 08, 2024 Dr. Bright Wheeler DO Attending Provider Active Start: September 08, 2024 End: September 08, 2024 Team Status: Inactive Member Role Status Dates Dr. Tani Grey MD Primary Care Provider Active Start: September 30, 2024 End: September 30, 2024 Dr. Tani Gery MD Attending Provider Active Start: September 30, 2024 End: September 30, 2024 Dr. Tani Grey MD Referring Provider Active Start: September 30, 2024 End: September 30, 2024 Team Status: Active Member Role Status Dates Dr. Tani Grey MD Primary Care Provider Active Start: September 30, 2024 Dr. Tani Grey MD Referring Provider Active Start: September 30, 2024 Dr. López Guillory MD Attending Provider Active S tart: September 30, 2024 Team Status: Inactive Member Role Status Dates Dr. Tani Grey MD Primary Care Provider Active Start: October 23, 2024 End: October 23, 2024 Dr. Radha Borthers DO Attending Provider Active Start: October 23, 2024 End: October 23, 2024 Dr. Radha Brothers DO Referring Provider Active Start: October 23, 2024 End: October 23, 2024 Team Status: Inactive Member Role Status Dates Dr. Tani Grey MD Primary Care Provider Active Start: November 06, 2024 End: November 06, 2024 Dr. Tani Grey MD Referring Provider Active Start: November 06, 2024 End: November 06, 2024 DANIEL Garcia Attending Provider Active Start: November 06, 2024 End: November 06, 2024 Team Status: Inactive Member Role Status Dates Dr. Tani Grey MD Primary Care Provider Active Start: November 14, 2024 End: November 14, 2024 Dr. Tani Grey MD Attending Provider Active Start: November 14, 2024 End: November 14, 2024 Dr. Tani Grey MD Referring Provider Active Start: November 14, 2024 End: November 14, 2024 Team Status: Active Member Role Status Dates Dr. Tani Grey MD Primary Care Provider Active Start: November 26, 2024 Dr. Radha Brothers DO Attending Provider Active Start: November 26, 2024 Dr. Radha Brothers DO Referring Provider Active Start: November 26, 2024 Team Status: Active Member Role Status Dates Dr. Tani Grey MD Primary Care Provider Active Start: November 26, 2024 Dr. López Guillory MD Attending Provider Active S tart: November 26, 2024 Dr. Radha Brothers DO Referring Provider Active Start: November 26, 2024 Team Status: Inactive Member Role Status Dates Dr. Tani Grey MD Primary Care Provider Active Start: December 03, 2024 End: December 03, 2024 Dr. Tani Grey MD Referring Provider Active Start: December 03, 2024 End: December 03, 2024 Dr. Louis Segal MD Attending Provider Active S tart: December 03, 2024 End: December 03, 2024 Team Status: Active Member Role Status Dates Dr. Frederick Poe MD Primary Care Provider Active Start: December 04, 2024 Dr. Sean Dos Santos DO Attending Provider Active Start: December 04, 2024 Dr. Louis Segal MD Referring Provider Active S tart: December 04, 2024 Team Status: Inactive Member Role Status Dates Dr. Tani Grey MD Primary Care Provider Active Start: December 05, 2024 End: December 05, 2024 Dr. Tani Grey MD Attending Provider Active Start: December 05, 2024 End: December 05, 2024 Dr. Tani Grey MD Referring Provider Active Start: December 05, 2024 End: December 05, 2024 Team Status: Inactive Member Role Status Dates Dr. Tani Grey MD Primary Care Provider Active Start: November 26, 2024 End: November 26, 2024 Dr. Radha Brothers DO Attending Provider Active Start: November 26, 2024 End: November 26, 2024 Dr. Radha Brothers DO Referring Provider Active Start: November 26, 2024 End: November 26, 2024 Team Status: Inactive Member Role Status Dates Dr. Tani Grey MD Primary Care Provider Active Start: December 08, 2024 End: December 08, 2024 Dr. Tani Grey MD Attending Provider Active Start: December 08, 2024 End: December 08, 2024 Dr. Tani Grey MD Referring Provider Active Start: December 08, 2024 End: December 08, 2024 Team Status: Inactive Member Role Status Dates Dr. Tani Grey MD Primary Care Provider Active Start: December 10, 2024 End: December 10, 2024 Dr. Tani Grey MD Attending Provider Active Start: December 10, 2024 End: December 10, 2024 Dr. Tani Grey MD Referring Provider Active Start: December 10, 2024 End: December 10, 2024 Team Status: Inactive Member Role Status Dates Dr. Tani Grey MD Primary Care Provider Active Start: December 12, 2024 End: December 12, 2024 Dr. Tani Grey MD Attending Provider Active Start: December 12, 2024 End: December 12, 2024 Dr. Tani Grey MD Referring Provider Active Start: December 12, 2024 End: December 12, 2024 Team Status: Inactive Member Role Status Dates Dr. Tani Grey MD Primary Care Provider Active Start: December 15, 2024 End: December 15, 2024 Dr. Tani Grey MD Attending Provider Active Start: December 15, 2024 End: December 15, 2024 Dr. Tani Grey MD Referring Provider Active Start: December 15, 2024 End: December 15, 2024 Team Status: Inactive Member Role Status Dates Dr. Tani Grey MD Primary Care Provider Active Start: December 22, 2024 End: December 22, 2024 Dr. Tani Grey MD Referring Provider Active Start: December 22, 2024 End: December 22, 2024 Anastacia Diaz AFRICANA STUDIES PROFESSOR, AFRICANA STUDIES PROFESSOR-C Attending Provider Active Start: December 22, 2024 End: December 22, 2024 Team Status: Inactive Member Role Status Dates Dr. Tani Grey MD Primary Care Provider Active Start: December 23, 2024 End: December 23, 2024 Anastacia Diaz AFRICANA STUDIES PROFESSOR, AFRICANA STUDIES PROFESSOR-C Attending Provider Active Start: December 23, 2024 End: December 23, 2024 Anastacia Diaz AFRICANA STUDIES PROFESSOR, AFRICANA STUDIES PROFESSOR-C Referring Provider Active Start: December 23, 2024 End: December 23, 2024 Team Status: Inactive Member Role Status Dates Dr. Tani Grey MD Primary Care Provider Active Start: December 24, 2024 End: December 24, 2024 Dr. Tani Grey MD Referring Provider Active Start: December 24, 2024 End: December 24, 2024 Anastacia Diaz AFRICANA STUDIES PROFESSOR, AFRICANA STUDIES PROFESSOR-C Attending Provider Active Start: December 24, 2024 End: December 24, 2024 Team Status: Active Member Role Status Dates Dr. Frederick Poe MD Primary Care Provider Active Start: December 24, 2024 Dr. Sean Dos Santos DO Attending Provider Active Start: December 24, 2024 Dr. Louis Segal MD Referring Provider Active S tart: December 24, 2024 Team Status: Inactive Member Role Status Dates Dr. Tani Grey MD Primary Care Provider Active Start: December 30, 2024 End: December 30, 2024 Dr. Tani Grey MD Referring Provider Active Start: December 30, 2024 End: December 30, 2024 DANIEL Garcia Attending Provider Active Start: December 30, 2024 End: December 30, 2024 Team Status: Inactive Member Role Status Dates Dr. Tani Grey MD Primary Care Provider Active Start: January 08, 2025 End: January 08, 2025 Dr. Wilfrid Foster DO Emergency Provider Active Start : January 08, 2025 End: January 08, 2025 Team Status: Inactive Member Role Status Dates Dr. Tani Grey MD Primary Care Provider Active Start: January 08, 2025 End: January 08, 2025 Dr. Wilfrid Foster DO Attending Provider Active Start : January 08, 2025 End: January 08, 2025 Dr. Wilfrid Foster DO Emergency Provider Active Start : January 08, 2025 End: January 08, 2025 Team Status: Inactive Member Role Status Dates Dr. Tani Grey MD Primary Care Provider Active Start: January 09, 2025 End: January 09, 2025 Dr. Tani Grey MD Attending Provider Active Start: January 09, 2025 End: January 09, 2025 Dr. Tani Grey MD Referring Provider Active Start: January 09, 2025 End: January 09, 2025 Team Status: Inactive Member Role Status Dates Dr. Tani Grey MD Primary Care Provider Active Start: February 09, 2025 End: February 09, 2025 Dr. Tani Grey MD Attending Provider Active Start: February 09, 2025 End: February 09, 2025 Dr. Tani Grey MD Referring Provider Active Start: February 09, 2025 End: February 09, 2025 Team Status: Inactive Member Role Status Dates Dr. Tani Grey MD Primary Care Provider Active Start: March 11, 2025 End: March 11, 2025 Dr. Tani Grey MD Referring Provider Active Start: March 11, 2025 End: March 11, 2025 Dr. Bright Wheeler DO Attending Provider Active Start: March 11, 2025 End: March 11, 2025 Team Status: Active Member Role Status Dates Dr. Tani Grey MD Primary Care Provider Active Start: March 11, 2025 Dr. Tani Grey MD Referring Provider Active Start: March 11, 2025 Dr. Bright Wheeler DO Attending Provider Active Start: March 11, 2025 Dr. Bright Wheeler DO Other Provider Active St art: March 11, 2025 Team Status: Active Member Role/Relationship Status Dates Dr. Tani Grey MD Primary Care Provider Active Team Status: Inactive Member Role/Relationship Status Dates Dr. Tani Grey MD Primary Care Provider Active Start: December 22, 2024 End: December 22, 2024 Dr. Tani Grey MD Referring Provider Active Start: December 22, 2024 End: December 22, 2024 Anastacia Diaz AFRICANA STUDIES PROFESSOR, A[employer]ICANA STUDIES PROFESSOR-C Attending Provider Active Start: December 22, 2024 End: December 22, 2024 Team Status: Inactive Member Role/Relationship Status Dates Dr. Tani Grey MD Primary Care Provider Active Start: December 23, 2024 End: December 23, 2024 Anastacia Diaz AFRICANA STUDIES PROFESSOR, A[employer]ICANA STUDIES PROFESSOR-C Attending Provider Active Start: December 23, 2024 End: December 23, 2024 Anastacia Diaz AFRICANA STUDIES PROFESSOR, AFRICANA STUDIES PROFESSOR-C Referring Provider Active Start: December 23, 2024 End: December 23, 2024 Team Status: Inactive Member Role/Relationship Status Dates Dr. Tani Grey MD Primary Care Provider Active Start: December 24, 2024 End: December 24, 2024 Dr. Tani Grey MD Referring Provider Active Start: December 24, 2024 End: December 24, 2024 Anastacia Diaz AFRICANA STUDIES PROFESSOR, AFRICANA STUDIES PROFESSOR-C Attending Provider Active Start: December 24, 2024 End: December 24, 2024 Team Status: Inactive Member Role/Relationship Status Dates Dr. Tani Grey MD Primary Care Provider Active Start: December 30, 2024 End: December 30, 2024 Dr. Tani Grey MD Referring Provider Active Start: December 30, 2024 End: December 30, 2024 DANIEL Garcia Attending Provider Active Start: December 30, 2024 End: December 30, 2024 Team Status: Inactive Member Role/Relationship Status Dates Dr. Tani Grey MD Primary Care Provider Active Start: January 08, 2025 End: January 08, 2025 Dr. Wilfrid Foster DO Attending Provider Active Start : January 08, 2025 End: January 08, 2025 Dr. Wilfrid Foster DO Emergency Provider Active Start : January 08, 2025 End: January 08, 2025 Team Status: Inactive Member Role/Relationship Status Dates Dr. Tani Grey MD Primary Care Provider Active Start: January 09, 2025 End: January 09, 2025 Dr. Tani Grey MD Attending Provider Active Start: January 09, 2025 End: January 09, 2025 Dr. Tani Grey MD Referring Provider Active Start: January 09, 2025 End: January 09, 2025 Team Status: Inactive Member Role/Relationship Status Dates Dr. Tani Grey MD Primary Care Provider Active Start: February 09, 2025 End: February 09, 2025 Dr. Tani Grey MD Attending Provider Active Start: February 09, 2025 End: February 09, 2025 Dr. Tani Grey MD Referring Provider Active Start: February 09, 2025 End: February 09, 2025 Team Status: Inactive Member Role/Relationship Status Dates Dr. Tani Grey MD Primary Care Provider Active Start: March 11, 2025 End: March 11, 2025 Dr. Tani Grey MD Referring Provider Active Start: March 11, 2025 End: March 11, 2025 Dr. Bright Wheeler DO Attending Provider Active Start: March 11, 2025 End: March 11, 2025 Team Status: Active Member Role/Relationship Status Dates Dr. Tani Grey MD Primary Care Provider Active Start: March 11, 2025 Dr. Tani Grey MD Referring Provider Active Start: March 11, 2025 Dr. Bright Wheeler DO Attending Provider Active Start: March 11, 2025 Dr. Bright Wheeler DO Other Provider Active St art: March 11, 2025 Team Status: Inactive Member Role/Relationship Status Dates Dr. Tani Grey MD Primary Care Provider Active Start: April 15, 2025 End: April 15, 2025 Dr. Tani Grey MD Referring Provider Active Start: April 15, 2025 End: April 15, 2025 Anastacia Diaz AFRICANA STUDIES PROFESSOR, AFRICANA STUDIES PROFESSOR-C Attending Provider Active Start: April 15, 2025 End: April 15, 2025 Team Status: Active Member Role/Relationship Status Dates Dr. Frederick Poe MD Primary Care Provider Active Start: April 15, 2025 Dr. Sean Dos Santos DO Attending Provider Active Start: April 15, 2025 Dr. Louis Segal MD Referring Provider Active S tart: April 15, 2025 Team Status: Inactive Member Role/Relationship Status Dates Dr. Tani Grey MD Primary Care Provider Active Start: February 09, 2025 End: February 09, 2025 Dr. Tani Grey MD Attending Provider Active Start: February 09, 2025 End: February 09, 2025 Dr. Tani Grey MD Referring Provider Active Start: February 09, 2025 End: February 09, 2025 Team Status: Inactive Member Role/Relationship Status Dates Dr. Tani Grey MD Primary Care Provider Active Start: March 11, 2025 End: March 11, 2025 Dr. Tani Grey MD Referring Provider Active Start: March 11, 2025 End: March 11, 2025 Dr. Bright Wheeler DO Attending Provider Active Start: March 11, 2025 End: March 11, 2025 Team Status: Active Member Role/Relationship Status Dates Dr. Tani Grey MD Primary Care Provider Active Start: March 11, 2025 Dr. Tani Grey MD Referring Provider Active Start: March 11, 2025 Dr. Bright Wheeler DO Attending Provider Active Start: March 11, 2025 Dr. Bright Wheeler DO Other Provider Active St art: March 11, 2025 Team Status: Inactive Member Role/Relationship Status Dates Dr. Tani Grey MD Primary Care Provider Active Start: April 15, 2025 End: April 15, 2025 Dr. Tani Grey MD Referring Provider Active Start: April 15, 2025 End: April 15, 2025 Anastacia Diaz NP, AFRICANA STUDIES PROFESSOR-C Attending Provider Active Start: April 15, 2025 End: April 15, 2025 Team Status: Active Member Role/Relationship Status Dates Dr. Frederick Poe MD Primary Care Provider Active Start: April 15, 2025 Dr. Sean Dos Santos DO Attending Provider Active Start: April 15, 2025 Dr. Louis Segal MD Referring Provider Active S tart: April 15, 2025 Team Status: Inactive Member Role/Relationship Status Dates Dr. Tani Grey MD Primary Care Provider Active Start: May 14, 2025 End: May 14, 2025 Dr. Tani Grey MD Attending Provider Active Start: May 14, 2025 End: May 14, 2025 Team Status: Inactive Member Role/Relationship Status Dates Dr. Tani Grey MD Primary Care Provider Active Start: May 14, 2025 End: May 14, 2025 Dr. Tani Grey MD Attending Provider Active Start: May 14, 2025 End: May 14, 2025 Team Status: Inactive Member Role/Relationship Status Dates Dr. Tani Grey MD Primary Care Provider Active Start: June 08, 2025 End: June 08, 2025 Dr. Tani Grey MD Referring Provider Active Start: June 08, 2025 End: June 08, 2025 Anastacia Diaz NP, AFRICANA STUDIES PROFESSOR-C Attending Provider Active Start: June 08, 2025 End: June 08, 2025 Team Status: Active Member Role/Relationship Status Dates Dr. Frederick Poe MD Primary Care Provider Active Start: June 08, 2025 Dr. Sean Dos Santos DO Attending Provider Active Start: June 08, 2025 Dr. Louis Segal MD Referring Provider Active S tart: June 08, 2025 INFORMATION SOURCE (unrecogn ized section and content) DATE CREATED AUTHOR 07/04/2024 [facility] DATE CREATED AUTHOR AUTHOR'S ANTONY SLOAN 07/28/2025 [facility] FOR RECORDS PERTAINING TO PATIENTS WHO ARE OR HAVE BEEN ENROLLED IN A CHEMICAL DEPENDENCY/SUBSTANCEABUSE PROGRAM, SOME INFORMATION MAY BE OMITTED. This clinical summary was aggregated from multiple sources. Caution should be exercised in using it in the provision of clinical care. This summary normalizes information from multiple sources, and as a consequence, information in this document may materially change the coding, format and clinical context of patient data. In addition, data may be omitted in some cases. CLINICAL DECISIONS SHOULD BE BASED ON THE PRIMARY CLINICAL RECORDS. [employer] provides no warranty or guarantee of the accuracy or completeness of information in this document.
[2025-08-16 13:44] VITALS: BP 168/68; O2SAT 96
--- NOTE | 2025-08-16 14:36 | ED.RN ---
Pt called out and wanted to know how much longer it was going to be. Pt said she was not waiting any longer and was leaving. Pt was advised that we are waiting on CT results.
== END 2025-08-16 14:43 | disposition left against medical advice (07) ==
PROVIDERS: Emergency Provider Emergency Medicine; PCP Family Medicine Geriatric Medicine; Visit Provider Emergency Medicine
DX: S22.41XA Multiple fractures of ribs, right side, initial encounter for closed fracture (principal); J43.9 Emphysema, unspecified; S27.0XXA Traumatic pneumothorax, initial encounter; W10.9XXA Fall (on) (from) unspecified stairs and steps, initial encounter; I10 Essential (primary) hypertension; F17.210 Nicotine dependence, cigarettes, uncomplicated; Z79.51 Long term (current) use of inhaled steroids; Z79.899 Other long term (current) drug therapy; Z23 Encounter for immunization
CPT/HCPCS: 71250; 90471; 90715; 99282

== ENCOUNTER 2025-08-17 13:30 | Emergency (ER) | payer MEDICARE, SELFPAY ==
[2025-08-17 13:30] VITALS: BP 154/94; PULSE 98; RESP 18; TEMP 36.9; O2SAT 96; BMI 22.8
[2025-08-17 13:42] VITALS: O2SAT 97
--- NOTE | 2025-08-17 14:22 | ED.VIS.DYS ---
HPI History of Present Illness Chief Complaint: Shortness of Breath Informant: patient and PCP Narrative Narrative: Patient is a 70-year-old female with a history of COPD presenting to the ED with right-sided rib pain and dyspnea following a fall down the stairs yesterday. - Fell down the stairs at 0800 yesterday, landing on her right side; slipped while trying to get her dog out. - Reports pain primarily in the right posterior rib area, exacerbated by deep inhalation. - Also sustained a skin laceration on her elbow during the fall. - No pain medication prescribed during yesterday's visit due to pt eloping from the ED before her CT resulted. Multiple attempts were made to try to contact the patient regarding her CT results, which showed rib fractures and a pneumothorax, unsuccessfully. Today her doctor sent her back in. She denies having any new symptoms. She is having pain with deep inspiration, movement, and some mild dyspnea at times especially when the pain increases. - Denies need for supplemental oxygen at baseline. - COPD reportedly stable prior to the fall. PFSH PFS Medical History Screening for breast cancer Low iron History of GI bleed Wears hearing aid Wears glasses Cancer Easy bruising History of ulceration Gastric reflux Shortness of breath on exertion Emphysema, unspecified COPD (chronic obstructive pulmonary disease) History of pain when walking History of edema Hyperparathyroidism Encounter for screening for malignant neoplasm of lung Encounter for screening for malignant neoplasm of lung in current smoker with 30 pack year history or greater Sciatic leg pain Wears dentures Post-menopausal Depression High cholesterol Back pain Chronic cough Hypertension Iron deficiency anemia due to chronic blood loss Osteopenia Invasive ductal carcinoma of right breast Arthritis GERD (gastroesophageal reflux disease) Smoking greater than 30 pack years Emphysema lung Bronchitis Asthma Home Medications ?Medication ?Instructions ?Recorded ?Last Taken ?Type pravastatin 40 mg tablet 40 mg PO QHS 05/14/23 08/16/25 History potassium chloride 20 mEq 20 meq PO QDAY 02/07/24 08/17/25 History tablet,extended release acetaminophen 500 mg tablet 500 mg PO Q6H PRN PRN Pain Score 05/13/24 Unknown Rx 1-10 #0 tabs cholecalciferol (vitamin D3) 125 125 mcg PO DAILY #30 caps 05/13/24 08/17/25 Rx mcg (5,000 unit) capsule baclofen 10 mg tablet 10 mg PO TID PRN abdominal pain 12/03/24 08/17/25 History omeprazole 40 mg capsule,delayed 40 mg PO DAILY 12/03/24 08/17/25 History release sucralfate 1 gram tablet 1 g PO TID 12/03/24 08/17/25 History anastrozole 1 mg tablet 1 mg PO DAILY #90 tabs 06/30/25 08/17/25 Rx amlodipine 10 mg tablet 10 mg PO DAILY 08/17/25 08/17/25 History ibuprofen 200 mg tablet (Advil) 400 mg PO Q6H PRN fever or pain 08/17/25 08/17/25 History levothyroxine 25 mcg tablet 25 mcg PO DAILY 08/17/25 08/17/25 History oxycodone-acetaminophen 5 mg-325 1 tab PO Q4H PRN Pain 3 days #18 08/17/25 Unknown Rx mg tablet TABLETS venlafaxine 100 mg tablet 100 mg PO DAILY 08/17/25 08/17/25 History Allergy/AdvReac Type Severity Reaction Status Date / Time latex AdvReac Intermediate rash Verified 08/17/25 13:34 Penicillins AdvReac Intermediate Rash Verified 08/17/25 13:34 Family History Mother Diabetes Hypertension Gastric ulcer Hyperlipidemia CVA (cerebral vascular accident) Father Diabetes COPD (chronic obstructive pulmonary disease) Hypertension Prostate cancer Aunt Breast cancer Surgical History History of esophagogastroduodenoscopy (EGD) H/O parathyroidectomy S/P parathyroidectomy Hx of colonoscopy Hx of fusion of cervical spine Status post right breast lumpectomy S/P lumpectomy, right breast History of tonsillectomy and adenoidectomy Hx of colonoscopy (~2019) H/O tubal ligation Social History Smoking Status: Current every day smoker tobacco type: cigarettes Tobacco: How many years used: 45 how long ago did patient quit smoking: down to only smoking 4 cigarettes/day second hand exposure: Yes quit status: considering quitting alcohol intake: current alcohol intake frequency: holidays/special occasions only substance use type: marijuana caffeine: Yes what type of physical activity do you participate in: none frequency: does not exercise laine/hoahaoism: None seatbelt use: always do you feel safe at home: Yes additional social history: ROS ROS ED Constitutional Constitutional ED: Denies chills or fever(s) Eyes Eyes: Denies change in vision or diplopia ENT ENT ED: Denies rhinorrhea or sore throat Cardiovascular Cardiovascular: Reports chest pain and other Details: ight lateral/posterior rib pain ; Denies palpitations Respiratory/Chest Respiratory/Chest: Reports dyspnea; Denies cough Gastrointestinal Gastrointestinal: Denies abdominal pain, diarrhea, nausea or vomiting Genitourinary Genitourinary ED: Denies dysuria or hematuria Musculoskeletal Musculoskeletal: Denies back pain or neck pain Integumentary Reports Abrasions; Denies abscess or rash Neurologic Neurologic: Denies headache(s), paresthesias or weakness Psychiatric Psychiatric: Denies suicidal thoughts EXAM Physical Exam Const Vital Signs: 08/17/25 13:30 08/17/25 13:42 08/17/25 14:30 Temperature 98.5 F Temperature Source Oral Pulse Rate 98 90 Respiratory Rate 18 17 Respiratory Effort Short of Breath Respiratory Depth Normal Respiratory Pattern Tachypnea Blood Pressure 154/94 H 177/72 H Blood Pressure Mean 114 107 Pulse Ox 96 97 Oxygen Delivery Method Room Air Room Air Room Air 08/17/25 15:00 Temperature Temperature Source Pulse Rate 80 Respiratory Rate 20 H Respiratory Effort Respiratory Depth Respiratory Pattern Blood Pressure 188/82 H Blood Pressure Mean 117 Pulse Ox 96 Oxygen Delivery Method Room Air Positive well nourished and well developed General Appearance ED: well developed and NAD HEENT Reports moist mucous membranes normocephalic and atraumatic Eyes PERRL and EOMs intact bilaterally Neck full ROM and supple Chest Wall Chest Narrative: Tender throughout the right lateral posterior chest wall/rib cage. No flail clinically. No subcutaneous emphysema palpable. Diffuse tenderness. Resp normal respiratory effort Resp Narrative: Diminished throughout equal breath sounds present bilaterally. Trachea midline. Cardio regular rate, regular rhythm and no murmurs GI non-tender and non-distended Auscultation: normoactive bowel sounds Palpation: soft Back/Spine no CVA tenderness Back/Spine Narrative: No midline back tenderness. Extremity normal to inspection Extremity Narrative: Skin tear right olecranon process no laceration requiring repair. No bony tenderness. Full range of motion at the right elbow and all other joints of all 4 extremities. General Extremety ED: Negative for edema, pulses abnormal or tenderness General Extremity: Negative for edema or pulses abnormal Neuro oriented x3, CN's II-XII intact bilaterally and no sensory deficits noted Sensorium / Orientation: awake and alert Motor Exam: strength 5/5 throughout Psych mental status grossly normal Skin no rashes or lesions noted Skin Narrative: Skin tear right elbow see above MDM MDM MDM Narrative Medical decision making narrative: Assessment: The patient is a 70-year-old female with PMH of COPD presenting for re-evaluation of right-sided chest pain after a fall down stairs yesterday that resulted in three right rib fractures and a small traumatic pneumothorax noted on prior CT. Today?s inspiratory/expiratory chest X-ray shows no pneumothorax and only subcutaneous emphysema adjacent to the rib fractures. Given stable imaging, normal vital signs, 100% SpO2 on room air, and improvement with analgesia, a chest tube is not indicated at this time. Plan: - Administered IV morphine for pain with good relief. - Prescribed outpatient pain medication. - Provided incentive spirometer and instructed on use. - Gave return precautions for worsening dyspnea or uncontrolled pain. - Discharge home with outpatient surgical follow-up as recommended. Diagnostics: - Inspiratory/expiratory chest X-ray interpreted: no pneumothorax; subcutaneous emphysema near right mid-lateral posterior rib fractures. Independently interpreted by Bebo meza. Consultations: - Surgery (Dr. Aguero) ? reviewed prior CT and today?s X-ray; agrees pneumothorax is not larger and chest tube not required; recommends outpatient follow-up. Reevaluations: - After morphine: patient resting, sleeping comfortably, SpO2 100% on room air, no resting tachycardia, pain improved, no dyspnea. History & Record Review Additional record(s) reviewed:: Prior ED visit (CT showing several right-sided rib fractures and a small pneumothorax) Radiography Diagnostic Testing: Clinical Impression(s) from Imaging Studies Chest X-Ray 08/17/25 14:40 IMPRESSION: Nondisplaced fracture of the anterolateral aspect of the right 5th ribs with evidence of subcutaneous emphysema overlying the right lateral chest wall and right lower cervical region. Atelectasis at the right lung base. Mild degree of right basilar atelectasis Reading Location: [facility] Rhythm Strip Rhythm Strip: Sinus Rhythm Rate: 85 Ectopy: None Management Discussion w/another healthcare provider: Industrial Technologist (Dr. aguero, surgery) Discharge Plan Triage Chief Complaint: Shortness of Breath ED Provider: Bebo Stewart Dx/Rx/DC Orders Clinical Impression: Traumatic fracture of ribs of right side with pneumothorax with routine healing, COPD (chronic obstructive pulmonary disease), Fall (on) (from) other stairs and steps, subsequent encounter Instructions: Using an Incentive Spirometer, Rib Fracture (Broken Rib), ED Pneumothorax, Blunt Trauma Prescriptions: New oxycodone-acetaminophen 5-325 mg tablet 1 tab PO Q4H PRN (Reason: Pain) 3 Days Qty: 18 0RF No Action pravastatin 40 mg tablet 40 mg PO QHS Patient Comments: TAKE 1 TABLET BY MOUTH EVERY DAY AT BEDTIME potassium chloride 20 mEq tablet extended release 20 meq PO QDAY sucralfate 1 gram tablet 1 g PO TID baclofen 10 mg tablet 10 mg PO TID PRN (Reason: abdominal pain) omeprazole 40 mg capsule,delayed release(DR/EC) 40 mg PO DAILY acetaminophen 500 mg Tablet 500 mg PO Q6H PRN PRN (Reason: Pain Score 1-10) Qty: 0 0RF cholecalciferol (vitamin D3) 125 mcg (5,000 unit) capsule 125 mcg PO DAILY Qty: 30 0RF levothyroxine 25 mcg tablet 25 mcg PO DAILY venlafaxine 100 mg tablet 100 mg PO DAILY amlodipine 10 mg tablet 10 mg PO DAILY ibuprofen [Advil] 200 mg tablet 400 mg PO Q6H PRN (Reason: fever or pain) anastrozole 1 mg tablet 1 mg PO DAILY Qty: 90 3RF Other Ambulatory Orders: Chest PA and Lateral (Routine) Timeframe: [id number] Facility: [facility] - Location: [facility] Ordered By: Dr. Bebo Stewart Primary Care Provider: Tani Grey Chi Referrals: Erum Esparza PA-C [Med Staff - Adv Practice Prof, Surgery] - 1 Week Referral Note: After making appointment for your chest x-ray, make an appointment with surgery for afterwards Activity Restrictions/Additional Instructions: - Take the prescribed pain medication as directed to control your discomfort. - Use the incentive spirometer regularly to help expand your lung and improve your breathing. - Schedule and obtain a repeat inspiratory/expiratory chest x-ray in one week. - Arrange an outpatient follow-up appointment after your repeat chest x-ray to review the results and adjust care. - No chest tube placement is required at this time; supportive care and monitoring are appropriate. However, if you have severe increase in shortness of breath that is not improving return to the ER immediately to reevaluate. Print Language: Maltese Disposition Disposition: Home, Self Care
[2025-08-17 14:30] VITALS: BP 177/72; PULSE 90; RESP 17; O2SAT 97
--- NOTE | 2025-08-17 14:40 | RAD_ITS ---
PROCEDURE: CHEST 3 VIEW 08/17/2025 REASON FOR EXAM: PTX REEVAL - INSP/EXP VIEWS TECHNIQUE: Procedure Code: [id number] Modality: DX Procedure: CHEST 3 VIEW COMPARISON: Prior CT scan of the thorax dated August 16, 2025. FINDINGS: Hardware: EKG electrodes are seizure Heart: The heart is nonenlarged. Mediastinum: Atherosclerotic calcification of the aortic arch. Lungs: Increased markings at the right lung base suggestive of atelectasis. Bones: Nondisplaced fracture along the anterolateral aspect of the right 5th ribs. Small amount of subcutaneous air within the soft tissues overlying the right thorax extending to the lower right cervical region. RAD/Chest 3 View IMPRESSION: Nondisplaced fracture of the anterolateral aspect of the right 5th ribs with ev idence of subcutaneous emphysema overlying the right lateral chest wall and right lower cervical region. Atelectasis at the right lung base. Mild degree of right basilar atelectasis Reading Location: [place] [id number]
[2025-08-17 15:00] VITALS: BP 188/82; PULSE 80; RESP 20; O2SAT 96
[2025-08-17 16:15] VITALS: BP 167/78; PULSE 88; RESP 17; TEMP 36.6; O2SAT 97
== END 2025-08-17 16:17 | disposition home or self-care (01) ==
PROVIDERS: Emergency Provider Emergency Medicine; PCP Family Medicine Geriatric Medicine; Visit Provider Emergency Medicine
DX: S27.0XXA Traumatic pneumothorax, initial encounter (principal); J44.9 Chronic obstructive pulmonary disease, unspecified; S22.41XA Multiple fractures of ribs, right side, initial encounter for closed fracture; T79.7XXA Traumatic subcutaneous emphysema, initial encounter; W10.8XXA Fall (on) (from) other stairs and steps, initial encounter; I10 Essential (primary) hypertension; F17.210 Nicotine dependence, cigarettes, uncomplicated; Z79.899 Other long term (current) drug therapy
CPT/HCPCS: 71047; 96374; 96375; 99283; A4216; J2405

== ENCOUNTER → 2025-08-24 | Outpatient (CLI) | payer MEDICARE, SELFPAY ==
--- NOTE | 2025-08-24 10:38 | RAD_ITS ---
PROCEDURE: CHEST PA AND LATERAL 08/24/2025 REASON FOR EXAM: REEVAL OF RIGHT PTX; INSP/EXP VIEWS TECHNIQUE: Procedure Code: RADCXR Modality: DX Procedure: CHEST PA AND LATERAL COMPARISON: August 17, 2025, August 16, 2025 FINDINGS: Hardware: Lower cervical spine fusion. Heart: The heart size is normal. Mediastinum: There are atherosclerotic calcifications of the thoracic aorta. Lungs: Mild scarring right lung base at the costophrenic sulcus. No significant pneumothorax remaining on the right. No consolidation. Bones: Mild curvature thoracolumbar spine to the left. RAD/Chest PA and Lateral IMPRESSION: No pneumothorax seen at this time. Reading Location: [id number]
== END | disposition home or self-care (01) ==
LOC: RAD 10:37
PROVIDERS: PCP Family Medicine Geriatric Medicine; Referring Provider Emergency Medicine; Visit Provider Emergency Medicine
DX: S22.41XD Multiple fractures of ribs, right side, subsequent encounter for fracture with routine healing (principal); S27.0XXD Traumatic pneumothorax, subsequent encounter
CPT/HCPCS: 71046

== ENCOUNTER → 2025-09-07 | Outpatient (CLI) | payer MEDICARE, SELFPAY ==
--- NOTE | 2025-09-07 15:45 | BI_ITS ---
EXAM: SCRN MAMM (CAD)W/MIKE BILAT DATE: 09/07/2025 CLINICAL HISTORY: F, Age 70 y/o , SCREENING Personal history of breast cancer. Prior right lumpectomy. Aunt with breast cancer. TECHNIQUE: Procedure Code: [id number] Modality: MG Procedure: SCRN MAMM (CAD)W/MIKE BILAT COMPARISON: Prior exam(s) dated August 18, 2024.. FINDINGS: TISSUE DENSITY: The breasts are heterogeneously dense, which may obscure small masses. Bilateral Breast Mammographic Findings: No significant masses, calcifications or other abnormalities are identified. Surgical clips are seen at the excisional biopsy site in the deep upper lateral aspect of the right breast. Postoperative scarring is noted. Surgical clips are also right axilla. No suspicious masses, areas of developing architectural distortion, or suspicious calcifications. There has been no significant interval change. BI/SCRN MAMM (CAD)W/MIKE BILAT IMPRESSION: Stable bilateral screening mammogram. OVERALL FINAL ASSESSMENT BI-RADS 2: BENIGN RECOMMENDATION: Routine annual follow-up in 1 Year Additional Recommendation none A letter with findings and recommendations will be mailed to the patient. Reading Location: [facility]
== END | disposition home or self-care (01) ==
LOC: OPBI 15:38
PROVIDERS: PCP Family Medicine Geriatric Medicine; Referring Provider Nurse Practitioner Family; Visit Provider Nurse Practitioner Family
DX: Z12.31 Encounter for screening mammogram for malignant neoplasm of breast (principal)
CPT/HCPCS: 77063; 77067